=== PATIENT | female | born 1950 | race Caucasian/White ===

== ENCOUNTER → 2018-02-15 13:48 | Outpatient (CLI) | payer MEDICARE, SELFPAY ==
--- NOTE | 2018-02-15 13:48 | DT_ITS ---
This patient was seen during an EMR downtime February 15, 2018 - February 22, 2018. This patient may have a combination of paper and electronic documentation or all paper documentation. All documentation is viewable within the e-chart portion of [employer] for each patient visit.
--- NOTE | 2018-02-24 11:40 | LEAS ---
Arterial Study - Arterial Study Arterial Study: Date of scan 02/15/[address] Alonzo History: Known hypertension with peripheral arterial disease Interpretation: Right lower extremity with fairly normal pulsatile waveform from the thigh down to the calf ankle out through the digits duplex duplex with triphasic flow both vessels at the ankle with an PADMAJA 1.18 in the posterior tibial 0.89 of the dorsalis pedis. Digital brachial index 0.74. Next Left lower extremity with fairly normal pulsatile flow noted from the thigh down to the calf ankle out through the digits duplex again shows triphasic flow both vessels at the ankle with an PADMAJA of 1.16 of the posterior tibial 1.16 of the dorsalis pedis. Digit brachial index 0.98. Impression: 1. Right lower extremity with no evidence of significant arterial occlusive disease at rest with an PADMAJA 1.18 2. Left lower extremity with no evidence of significant arterial occlusive disease at rest with an PADMAJA 1.16
== END ==
PROVIDERS: Family Provider Family Medicine; PCP Family Medicine; Visit Provider Family Medicine
DX: I73.9 Peripheral vascular disease, unspecified (principal)
CPT/HCPCS: 93923

== ENCOUNTER 2018-10-01 18:33 | Inpatient (IN) | payer MEDICARE, SELFPAY ==
[2018-10-01] VITALS (21 sets, daily range): BP systolic 95–135; BP diastolic 56–90; PULSE 113–163; RESP 17–30; TEMP 36.3–36.8; O2SAT 94–99; BMI 22.6; BMI 23.8
--- NOTE | 2018-10-01 18:39 | EKG12_ITS ---
Test Reason : CP Blood Pressure : / mmHG Vent. Rate : 161 BPM Atrial Rate : 144 BPM P-R Int : 000 ms QRS Dur : 074 ms QT Int : 300 ms P-R-T Axes : 000 057 -10 degrees QTc Int : 491 ms Atrial fibrillation with rapid ventricular response ST & T wave abnormality, consider inferior ischemia Abnormal ECG Confirmed by MIGUEL GRIMALDO, APRIL ([id number]), supervising editor trailer VILMA NAVARRETE ([id number]) on 10/04/2018 9:05:25 AM Referred By: NATY Confirmed By:APRIL RIVERA MD
--- NOTE | 2018-10-01 18:40 | RAD_ITS ---
HISTORY: MIDSTERNAL CHEST PAIN, PALPITATIONS AND TACHYCARDIA EXAM: XR Chest 1 View: COMPARISON: CT chest 10/02/14. FINDINGS: # of images incl. paperwork: 1 LINES/DEVICES: None. LUNGS: No evidence of pneumonia, pulmonary edema, or other acute pathology. Mild emphysema, mild linear atelectasis/scarring left lung base. MEDIASTINUM AND CARDIOVASCULAR STRUCTURES: Cardiac silhouette not enlarged. Central airways and mediastinal contour are unremarkable. Atherosclerosis thoracic aorta. BONES AND SOFT TISSUES: Unremarkable. RAD/Chest 1 View (Portable) IMPRESSION: No radiographic evidence of acute cardiopulmonary disease. Mild emphysema. at 1935 Reported and signed by: Michael Stewart MD Electronically Signed: Michael Stewart, at 19:35 EST Tel , Service support ,
[2018-10-01] MEDS: Aspirin 81 MG TAB.CHEW 324 MG PO (18:46)
[2018-10-01] MEDS: dilTIAZem 25 MG/5 ML Vial IV BOLUS (19:01)
--- NOTE | 2018-10-01 19:01 | ED.DCSUM_ITS ---
- ER Visit Summary Date of Service: 10/01/18 Chief Complaint: Chest pain and irregular heart rate History of Present Illness: The patient is a 68 F history of GA and CAD with 2 cardiac stents placed within the last year at [facility]. Also COPD and hypertension. Patient is anticoagulated on both Plavix and aspirin. She states earlier today she had a fast irregular heart rate with dizziness and burning chest discomfort. Physical Examination: Older female vital signs initial heart rates 163 obvious A. fib RVR on the monitor. Her initial blood pressure is 117/81. HEENT exam unremarkable. Neck nontender. Lungs clear to auscultation bilaterally. Heart irregularly irregular rate 160 no murmur. Abdomen soft nontender. Extremities moves all 4. Calves nontender without edema or cords. Neurologically she is awake alert with no focal motor deficits. Test Results: Chest x-ray chronic changes and COPD no acute process read both myself and radiologist. EKG A. fib RVR with rate dependent ischemia with ST depression anterolaterally. CBC normal. Chemistries unremarkable normal creatinine and gap. Troponin normal. Emergency Department Course and Treatment: Patient in new onset A. fib RVR. Will be treated with a Cardizem bolus. P.o. aspirin. She will need admitted. Treatment Plan: Patient's heart rate continued to be greater than 130 after the first dose of Cardizem therefore was started on a Cardizem drip. I spoke to the hospitalist about admission in the PCU. Disposition: Admission Impression: New onset atrial fibrillation with rapid ventricular rate Acute chest pain History of CAD with 2 cardiac stents Anticoagulated on Plavix and aspirin This note was generated with [employer] dictation software. It may contain incorrect words, spelling, and punctuation that were not noted in review of the chart prior to signing ED Disposition - Plan for ED Patient: Chief Complaint: Chest Pain Referrals: Joleen Beal [NON-STAFF] -
[2018-10-01 19:03] LABS: Anion Gap 8 (5-15); BUN 13 mg/dL (7-18); BUN/Creat Ratio 15.9 RATIO (10-20); Calcium,Total 8.9 mg/dL (8.5-10.1); Chloride 110 mmol/L (98-107); Creatinine, Serum 0.82 mg/dL (0.55-1.02); EST Glomerular Filtration Rate 74 mL/min (>60); Est Glom Filt Rate - Afr Amer 89 mL/min (>60); Estimated Creatinine Clearance 62.32 ml/min; Glucose 105 mg/dL (74-106); Potassium 3.8 mmol/L (3.5-5.1); Sodium Level 142 mmol/L (136-145)
[2018-10-01 19:38] LABS: Absolute Lymphocyte Count 3.02 X10^3/ul (0.83-4.51); Absolute Neutrophil Count 4.8 X10^3/uL (2.0-7.7); Basophil# 0.05 X10^3/uL; Basophil% 0.6 % (0-1); Eosinophil# 0.24 X10^3/uL; Eosinophils% 2.8 % (0-5); Hematocrit 45.1 % (37-47); Hemoglobin 14.2 g/dl (12.0-15.0); Lymphocyte # 3.02 X10^3/ul (4.0); Mean Corp Hgb Conc 31.5 g/gl (32-36); Mean Corpuscular Hgb 30.6 pg (27.0-32.0); Mean Corpuscular Volume 97.2 fL (81-99); Mean Platelet Vol. 10.6 fl (6.2-12.0); Monocyte# 0.54 X10^3/uL; Monocyte% 6.3 % (0-10); Neutrophil # 4.77 X10^3/uL (2.7-7.7); Neutrophil % 55.1 % (47-70); Platelet Count 303 K/mm3 (150-450); RBC Distribution Width CV 13.9 % (11.6-14.6); RBC Distribution Width SD 49.2 fl (35.1-43.9); Red Blood Count 4.64 M/mm3 (4.2-5.4); White Blood Count 8.6 K/mm3 (4.4-11.0)
[2018-10-01 19:39] LABS: POSITIVE COUNT NO; POSITIVE DIFFERENTIAL NO; POSITIVE MORPHOLOGY NO
[2018-10-01] MEDS: 0.9% Normal Saline 1,000 ML 999 ML IV (20:16)
--- NOTE | 2018-10-01 21:01 | PCM.HP.STD ---
Problem List (1) Atrial fibrillation with RVR Status: Acute (2) Irritable bowel Status: Suspected (3) Hypertension Status: Chronic (4) Chest pain Status: Acute (5) Tobacco abuse Status: Chronic (6) Myoclonic disorder Status: Chronic History of Present Illness Date of Admission: 10/01/18 Chief Complaint: rapid heart rate, chest discomfort The patient is a 68 year old female patient with a significant past medical history of coronary artery disease(2 stents 7 months ago at [facility]), COPD and myoclonic jerking disorder presents with chest discomfort and rapid heart rate. Last night she noticed she wasn't feeling well and had some tingling discomfort in her left wrist and proceeded to go to bed. She felt unwell when she woke up and noticed a fluttering sensation in her chest. She did not seek medical attention but continued drinking several cups of coffee and smoking cigarettes. Her discomfort worsened so she came to the ER for evaluation. She was in atrial fibrillation with rapid ventricular response. Troponin was 0.026. Other labs were unremarkable. She will be admitted to PCU and cardiology consulted. Past Medical History Past Medical History (Chronic Problems): Chronic Problems Hypertension (Chronic) Esophagitis (Chronic) Tobacco abuse (Chronic) Myoclonic disorder (Chronic) Allergies levofloxacin [From Levaquin] Allergy (Verified 10/02/14 19:09) Rash Home Medications: Ambulatory Orders Medication Instructions Recorded Lisinopril/Hydrochlorothiazide 1 tab PO DAILY 10/02/14 [Lisinopril-Hctz 20-12.5 mg Tab] Metoprolol(XL)Succ [Toprol Xl 50 mg PO DAILY 10/03/14 (Beta Nia)] Aspirin [Aspir 81] 81 mg PO DAILY 10/01/18 Budesonide/Formoterol 160/4.5 2 puff IH BID 10/01/18 [Symbicort 160/4.5 Mcg Inhaler (SP)] Clopidogrel Bisulfate [Plavix] 75 mg PO DAILY 10/01/18 Surgical History: adenoidectomy, hysterectomy, tonsillectomy, - - Cyst removal Psychiatric History: No pertinent psych hx 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, ovarian cysts - Presumed Smoking Status: Current every day smoker - *Family History Maternal History Items: Heart Disease, Stroke Paternal History Items: Cancer - Laryngeal, Heart Disease Review of Systems Constitutional: Denies: Chills, Fever, Weight Change HEENT: Denies: Head Aches, Sinus Congestion, Sinus Drainage Cardiovascular: Reports: Chest Pain, Palpitations Respiratory: Denies: Cough, Shortness of breath at rest, Sputum production Gastrointestinal: Denies: Abdominal Pain, Nausea, Vomiting Genitourinary: Denies: Dysuria Musculoskeletal: Denies: Joint Pain, Joint Tenderness Skin: Denies: Rash, Wounds Neurological: Denies: Numbness, Tingling, Focal weakness Psychiatric: Denies: Anxiety, Depression, Homicidal Ideations, Suicidal Ideations Hematologic/ Lymphatic: Denies: Easy Bruising, Easy Bleeding VTE Information - Inpt Only VTE Present on Admission: No VTE Mechan Device Prophylaxis: None VTE Pharm Prophylaxis ordered?: Yes Patient Problems: Active and Suspected Problems Atrial fibrillation with RVR (Acute) - Physical Exam General: Alert, Oriented x3, Cooperative HEENT: Atraumatic, Normocephalic Neck: Supple, No JVD, Negative Carotid Bruits Lungs: Clear to auscultation, Normal air movement Cardiovascular: Normal S1, Normal S2, No murmurs, Irregular Rate, Tachycardic Abdomen: Bowel Sounds Present, Soft, Non Tender Extremities: No edema Skin: No rashes Musculoskeletal: No Tenderness to Palpation of Joints or Extremities Neurological: Neuro grossly intact Psych/Mental Status: Normal Affect, Appropriate Vital Signs Temp Pulse Resp BP Pulse Ox 97.3 F L 113 H 23 H 95/64 97 10/01/18 18:34 10/01/18 20:13 10/01/18 20:13 10/01/18 20:13 10/01/18 20:13 Oxygen Delivery Method Room Air Weight: 140 lb Body Mass Index (BMI) 22.6 Laboratory Tests Past 24 Hrs 10/01/18 10/01/18 18:37 18:37 WBC 8.6 RBC 4.64 Hgb 14.2 Hct 45.1 MCV 97.2 MCH 30.6 MCHC 31.5 L RDW 13.9 RDW Differential 49.2 H Plt Count 303 MPV 10.6 Immature Gran % (Auto) 0.200 Neut % (Auto) 55.1 Lymph % (Auto) 35.0 Nye % (Auto) 6.3 Eos % (Auto) 2.8 Baso % (Auto) 0.6 Absolute Neuts (auto) 4.8 Absolute Lymphs (auto) 3.02 Total Counted Not Reportable Sodium 142 Potassium 3.8 Chloride 110 H Carbon Dioxide 24.0 Anion Gap 8 BUN 13 Creatinine 0.82 Estim Creat Clear Calc 62.32 Est GFR (MDRD) Af Amer 89 Est GFR (MDRD) Non-Af 74 BUN/Creatinine Ratio 15.9 Glucose 105 Calcium 8.9 Troponin I 0.026 Assessment/Plan All Active Problems Atrial fibrillation with RVR (Acute) Abnormal nuclear stress test (Acute) Chest pain (Acute) Chronic Problems Hypertension (Chronic) Esophagitis (Chronic) Tobacco abuse (Chronic) Myoclonic disorder (Chronic) Plan 1. Atrial Fibrillation /RVR -- admit to PCU, continue Cardizem drip, consult Dr Mendoza 2. Chest Pain/ CAD--cycle cardiac markers, morphine, aspirin, and nitro prn per routine. Adenosine nuclear stress test in AM 3. Nicotine abuse -- ok 14mg patch smoking cessation encourage (G0436) >10min counseling performed on this issue 4. DVT prophylaxis- LMWH Code Visit Inpatient E&M: 15394 Init Hosp L3
[2018-10-01] MEDS: Enoxaparin 60 MG/0.6 ML Syringe SC (22:00)
[2018-10-02] VITALS (25 sets, daily range): BP systolic 99–145; BP diastolic 60–86; PULSE 60–82; RESP 14–25; TEMP 36.6–36.9; O2SAT 93–99
--- NOTE | 2018-10-02 00:15 | EKG12_ITS ---
Test Reason : AM EKG Blood Pressure : / mmHG Vent. Rate : 061 BPM Atrial Rate : 061 BPM P-R Int : 150 ms QRS Dur : 078 ms QT Int : 472 ms P-R-T Axes : 045 034 090 degrees QTc Int : 475 ms Normal sinus rhythm Nonspecific T wave abnormality Prolonged QT Abnormal ECG When compared with ECG of 02-OCT-2018 00:25, MANUAL COMPARISON REQUIRED, DATA IS UNCONFIRMED Confirmed by MIGUEL GRIMALDO, APRIL ([id number]), acquisition editor VILMA NAVARRETE ([id number]) on 10/05/2018 1:15:48 PM Referred By: LISA Confirmed By:APRIL RIVERA MD
[2018-10-02] MEDS: Albuterol 2.5 MG/3 ML VIAL.NEB. INHALATION ×2 (00:33→09:03)
[2018-10-02] MEDS: Morphine 2 MG/ML Syringe IV (00:45)
[2018-10-02] MEDS: 0.9% NaCl Peripheral Flush Adult/Peds IV (00:46)
[2018-10-02 04:42] LABS: Hematocrit 37.7 % (37-47); Hemoglobin 11.9 g/dl (12.0-15.0); Mean Corp Hgb Conc 31.6 g/gl (32-36); Mean Corpuscular Volume 98.2 fL (81-99); Mean Platelet Vol. 10.6 fl (6.2-12.0); Platelet Count 236 K/mm3 (150-450); RBC Distribution Width CV 13.8 % (11.6-14.6); Red Blood Count 3.84 M/mm3 (4.2-5.4); White Blood Count 6.6 K/mm3 (4.4-11.0)
[2018-10-02 04:49] LABS: Prothrombin Time (Protime)PT. 13.1 SECONDS (11.7-14.9)
[2018-10-02 04:54] LABS: Scan Indicated on CBC? Y/N NO
[2018-10-02 05:52] LABS: ALB/GLOB Ratio 1.2 RATIO (0.9-2.4); AST(SGOT) 12 U/L (15-37); Alanine Aminotransfer ALT/SGPT 17 U/L (13-56); Albumin, Serum 3.2 g/dL (3.2-5.0); Alkaline Phosphatase 76 U/L (45-117); Anion Gap 11 (5-15); BUN 12 mg/dL (7-18); BUN/Creat Ratio 17.6 RATIO (10-20); Bilirubin, Direct 0.09 mg/dL (0.00-0.30); Chloride 115 mmol/L (98-107); Cholesterol 158 mg/dL (200); Creatinine, Serum 0.68 mg/dL (0.55-1.02); EST Glomerular Filtration Rate 91 mL/min (>60); Est Glom Filt Rate - Afr Amer 111 mL/min (>60); Estimated Creatinine Clearance 51.11 ml/min; Globulin 2.6 g/dL (2.2-4.2); Glucose 96 mg/dL (74-106); High Density Lipoprotein 36 mg/dL; Potassium 4.1 mmol/L (3.5-5.1); Protein, Total 5.8 g/dL (6.4-8.2); Sodium Level 146 mmol/L (136-145); Thyroid Stim Hormone (TSH) 2.53 uIU/mL (0.358-3.74); Triglycerides 156 mg/dL; Very Low Density Lipoprotein 31 mg/dL (5-40)
--- NOTE | 2018-10-02 05:55 | EKG12_ITS ---
Test Reason : EKG CHANGE Blood Pressure : / mmHG Vent. Rate : 074 BPM Atrial Rate : 074 BPM P-R Int : 140 ms QRS Dur : 084 ms QT Int : 422 ms P-R-T Axes : 050 043 072 degrees QTc Int : 468 ms Normal sinus rhythm Normal ECG When compared with ECG of 03-OCT-2014 06:02, No significant change was found Confirmed by MIGUEL GRIMALDO, APRIL ([id number]), television news video editor VILMA NAVARRETE ([id number]) on 10/05/2018 1:15:55 PM Referred By: LISA Confirmed By:APRIL RIVERA MD
[2018-10-02] MEDS: Clopidogrel Bisulfate 75 MG Tablet PO (05:57)
[2018-10-02] MEDS: Lisinopril 20 MG Tablet PO (05:57)
[2018-10-02] MEDS: Aspirin E.C. 81 MG Tablet PO (05:57)
--- NOTE | 2018-10-02 07:42 | PCM.CONS.C ---
Reason for Consult Date of Consultation: 10/02/18 Reason for Consultation: Irregular heartbeat History of Present Illness: The patient is a 68 year old F with a past medical history significant for hypertension, coronary artery disease status post inferior wall myocardial infarction in April of this year. She had presented to [facility] where she underwent an emergency cardiac catheterization which demonstrated 100% occlusion of the right coronary artery, with mild disease noted in the left anterior descending artery and a left circumflex artery. She underwent angioplasty and stenting with a drug-eluting stent to the right coronary artery. An echocardiogram performed at that time demonstrated preserved ejection fraction estimated at 62% with mild mitral tricuspid and aortic regurgitation. She has apparently done well since then has had some follow-up with them. She yesterday she was not feeling well she felt her heart was racing and so she presented to the emergency room she was noted to be in atrial fibrillation with rapid ventricular response rate with a EKG documenting 161 bpm. She was admitted to the telemetry unit and I was consulted for further evaluation and management. She had been placed on intravenous Cardizem drip. She appears to have converted back to sinus rhythm through the night. Currently she is pain-free. She has denied any chest pain, shortness of breath, paroxysmal nocturnal dyspnea or pedal edema while she was at home. [] Past Medical History Allergies/Adverse Reactions: Allergies levofloxacin [From Levaquin] Allergy (Verified 10/02/14 19:09) Rash Home Medications: Ambulatory Orders Medication Instructions Recorded Lisinopril/Hydrochlorothiazide 1 tab PO DAILY 10/02/14 [Lisinopril-Hctz 20-12.5 mg Tab] Metoprolol(XL)Succ [Toprol Xl 50 mg PO DAILY 10/03/14 (Beta Nia)] Aspirin [Aspir 81] 81 mg PO DAILY 10/01/18 Budesonide/Formoterol 160/4.5 2 puff IH BID 10/01/18 [Symbicort 160/4.5 Mcg Inhaler (SP)] Clopidogrel Bisulfate [Plavix] 75 mg PO DAILY 10/01/18 Past Medical History (Chronic Problems): Chronic Problems Hypertension (Chronic) Esophagitis (Chronic) Tobacco abuse (Chronic) Myoclonic disorder (Chronic) Surgical History: adenoidectomy, hysterectomy, tonsillectomy, - - Cyst removal Psychiatric History: No pertinent psych 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 Denies: Chest Discomfort, Shortness of Breath, Orthopnea, PND, Peripheral Edema, Lightheadedness, Dizziness, Near Syncope, Syncope Respiratory: Denies: Cough, Sputum Production, Hemoptysis Gastrointestinal: Denies: Indigestion, Hematemesis, Hematochezia, Melena Genitourinary: Denies: Dysuria, Hematuria Muscoloskeletal: Denies: Myalgias Skin: Denies: Rash Neurological: Denies: Dizziness Psychiatric: Reports: Anxiety, Depression Endocrine: Denies: Heat Intolerance, Unexplained Weight Loss Hematologic/ Lymphatic: Denies: Anemia Subjectve: Pleasant lady in no apparent distress Objective: Vital Signs Temp Pulse Resp BP Pulse Ox 98.4 F 62 17 134/78 H 97 10/02/18 02:36 10/02/18 06:59 10/02/18 06:59 10/02/18 06:59 10/02/18 06:59 Oxygen Delivery Method Room Air Weight: 147 lb 11.355 oz Body Mass Index (BMI) 23.8 Intake and Output for Last 24 Hours 09/30/18 10/01/18 10/02/18 23:59 23:59 23:59 Intake Total 566.9 / 566.9 Balance 566.9 / 566.9 General: Awake, Alert, Oriented x 3 HEENT: PERRL, EOMI, Sclera Non Icteric Neck: Supple, Good ROM, No Lymph Node Enlargement Lungs: Clear to auscultation Cardiovascular: Regular Rhythm, Normal S1, Normal S2, No Murmurs, No Rubs, No Gallops Vascular: No Carotid Bruits, Normal Femoral Pulses, Normal Radial Pulses, Normal Dorsalis Pedal Pulse, Normal Posterior Tibial Pulses Abdomen: Bowel Sounds Present, Soft, Non Tender, No HSM, No Organomegaly Extremities: No Cyanosis, No Clubbing, No edema Musculoskeletal: No Muscle Wasting Skin: No Rashes Lymphatic: No Lymph Node Enlargement Neurological: No Focal Motor or Sensory Deficit Psych/Mental Status: Flat Affect 10/01/18 18:37: WBC 8.6, RBC 4.64, Hgb 14.2, Hct 45.1, MCV 97.2, MCH 30.6, MCHC 31.5 L, RDW 13.9, RDW Differential 49.2 H, Plt Count 303, MPV 10.6, Immature Gran % (Auto) 0.200, Neut % (Auto) 55.1, Lymph % (Auto) 35.0, Rush % (Auto) 6.3, Eos % (Auto) 2.8, Baso % (Auto) 0.6, Absolute Neuts (auto) 4.8, Total Counted Not Reportable 10/01/18 18:37: Sodium 142, Potassium 3.8, Chloride 110 H, Carbon Dioxide 24.0, Anion Gap 8, BUN 13, Creatinine 0.82, Est GFR (MDRD) Af Amer 89, Est GFR (MDRD) Non-Af 74, BUN/Creatinine Ratio 15.9, Glucose 105, Calcium 8.9, Troponin I 0.026 10/01/18 21:54: Troponin I 0.060 H 10/02/18 00:40: Troponin I 0.056 H 10/02/18 04:23: WBC 6.6, RBC 3.84 L, Hgb 11.9 L, Hct 37.7, MCV 98.2, MCH 31.0, MCHC 31.6 L, RDW 13.8, RDW Differential 48.0 H, Plt Count 236, MPV 10.6 10/02/18 04:23: Sodium 146 H, Potassium 4.1, Chloride 115 H, Carbon Dioxide 20.0 L, Anion Gap 11, BUN 12, Creatinine 0.68, Est GFR (MDRD) Af Amer 111, Est GFR (MDRD) Non-Af 91, BUN/Creatinine Ratio 17.6, Glucose 96, Calcium 8.0 L, Total Bilirubin 0.20, Direct Bilirubin 0.09, Triglycerides 156, Cholesterol 158, LDL Cholesterol 91, VLDL Cholesterol 31, HDL Cholesterol 36 L 10/02/18 04:23: PT 13.1, INR 1.0, APTT 36.0 Rhythm: EKG: Initial EKG demonstrates atrial fibrillation with a rapid ventricular response rate of 161 bpm, follow-up EKG demonstrates normal sinus rhythm with a rate of 61 bpm. Assessment/Plan 1. New onset atrial fibrillation The patient presented with new onset atrial fibrillation and spontaneously converted to sinus rhythm. My recommendation at this time would be to assess for any ischemia. If the above is negative then I would recommend that we continue to manage her medically. At this time with one episode I do not think that we need to put her on anticoagulation. Her previous echocardiogram demonstrated preserved ejection fraction. I would recommend that we continue to follow her here closely medically. 2. Coronary artery disease She is status post coronary artery angioplasty and stenting of the right coronary artery. Depending on the results of the stress myocardial perfusion scan further recommendations will be made. At this time however I think her mild troponin elevation is likely secondary to demand ischemia. 3. Risk factor modification She will need aggressive blood pressure control as well as continued smoking cessation. . I would encourage her to follow-up here locally especially if she is going to be using as for emergency medical services. Thank you for allowing me to participate in the care of your patient. Please don't hesitate to call if any issues arise
--- NOTE | 2018-10-02 07:48 | CON.PCM_ITS ---
Reason for Consult Date of Consultation: 10/02/18 Reason for Consultation: Irregular heartbeat History of Present Illness: The patient is a 68 year old F with a past medical history significant for hypertension, coronary artery disease status post inferior wall myocardial infarction in April of this year. She had presented to [facility] where she underwent an emergency cardiac catheterization which demonstrated 100% occlusion of the right coronary artery, with mild disease noted in the left anterior descending artery and a left circumflex artery. She underwent angioplasty and stenting with a drug-eluting stent to the right coronary artery. An echocardiogram performed at that time demonstrated preserved ejection fraction estimated at 62% with mild mitral tricuspid and aortic regurgitation. She has apparently done well since then has had some follow-up with them. She yesterday she was not feeling well she felt her heart was racing and so she presented to the emergency room she was noted to be in atrial fibrillation with rapid ventricular response rate with a EKG documenting 161 bpm. She was admitted to the telemetry unit and I was consulted for further evaluation and management. She had been placed on intravenous Cardizem drip. She appears to have converted back to sinus rhythm through the night. Currently she is pain- free. She has denied any chest pain, shortness of breath, paroxysmal nocturnal dyspnea or pedal edema while she was at home. [] Past Medical History Allergies/Adverse Reactions: Allergies levofloxacin [From Levaquin] Allergy (Verified 10/02/14 19:09) Rash Home Medications: Ambulatory Orders Medication Instructions Recorded Lisinopril/Hydrochlorothiazide 1 tab PO DAILY 10/02/14 [Lisinopril-Hctz 20-12.5 mg Tab] Metoprolol(XL)Succ [Toprol Xl 50 mg PO DAILY 10/03/14 (Beta Nia)] Aspirin [Aspir 81] 81 mg PO DAILY 10/01/18 Budesonide/Formoterol 160/4.5 2 puff IH BID 10/01/18 [Symbicort 160/4.5 Mcg Inhaler (SP)] Clopidogrel Bisulfate [Plavix] 75 mg PO DAILY 10/01/18 Past Medical History (Chronic Problems): Chronic Problems Hypertension (Chronic) Esophagitis (Chronic) Tobacco abuse (Chronic) Myoclonic disorder (Chronic) Surgical History: adenoidectomy, hysterectomy, tonsillectomy, - - Cyst removal Psychiatric History: No pertinent psych hx SEISMIC INTERPRETER History: No pertinent SEISMIC INTERPRETER history, ovarian cysts - Presumed - *Family History Maternal History Items: Heart Disease, Stroke Paternal History Items: Cancer - Laryngeal, Heart Disease Smoking Status: Current every day smoker Tobacco Use: Cigarettes Review of Systems - Review of Systems General: Denies: Fever, Night Sweats, Fatigue HEENT: Denies: Vision Change Cardiovascular: Reports: Palpitations. Denies: Chest Discomfort, Shortness of Breath, Orthopnea, PND, Peripheral Edema, Lightheadedness, Dizziness, Near Syncope, Syncope Respiratory: Denies: Cough, Sputum Production, Hemoptysis Gastrointestinal: Denies: Indigestion, Hematemesis, Hematochezia, Melena Genitourinary: Denies: Dysuria, Hematuria Muscoloskeletal: Denies: Myalgias Skin: Denies: Rash Neurological: Denies: Dizziness Psychiatric: Reports: Anxiety, Depression Endocrine: Denies: Heat Intolerance, Unexplained Weight Loss Hematologic/ Lymphatic: Denies: Anemia Subjectve: Pleasant lady in no apparent distress Objective: Vital Signs Temp Pulse Resp BP Pulse Ox 98.4 F 62 17 134/78 H 97 10/02/18 02:36 10/02/18 06:59 10/02/18 06:59 10/02/18 06:59 10/02/18 06:59 Oxygen Delivery Method Room Air Weight: 147 lb 11.355 oz Body Mass Index (BMI) 23.8 Intake and Output for Last 24 Hours 09/30/18 10/01/18 10/02/18 23:59 23:59 23:59 Intake Total 566.9 / 566.9 Balance 566.9 / 566.9 General: Awake, Alert, Oriented x 3 HEENT: PERRL, EOMI, Sclera Non Icteric Neck: Supple, Good ROM, No Lymph Node Enlargement Lungs: Clear to auscultation Cardiovascular: Regular Rhythm, Normal S1, Normal S2, No Murmurs, No Rubs, No Gallops Vascular: No Carotid Bruits, Normal Femoral Pulses, Normal Radial Pulses, Normal Dorsalis Pedal Pulse, Normal Posterior Tibial Pulses Abdomen: Bowel Sounds Present, Soft, Non Tender, No HSM, No Organomegaly Extremities: No Cyanosis, No Clubbing, No edema Musculoskeletal: No Muscle Wasting Skin: No Rashes Lymphatic: No Lymph Node Enlargement Neurological: No Focal Motor or Sensory Deficit Psych/Mental Status: Flat Affect 10/01/18 18:37: WBC 8.6, RBC 4.64, Hgb 14.2, Hct 45.1, MCV 97.2, MCH 30.6, MCHC 31.5 L, RDW 13.9, RDW Differential 49.2 H, Plt Count 303, MPV 10.6, Immature Gran % (Auto) 0.200, Neut % (Auto) 55.1, Lymph % (Auto) 35.0, [place] % (Auto) 6.3, Eos % (Auto) 2.8, Baso % (Auto) 0.6, Absolute Neuts (auto) 4.8, Total Counted Not Reportable 10/01/18 18:37: Sodium 142, Potassium 3.8, Chloride 110 H, Carbon Dioxide 24.0, Anion Gap 8, BUN 13, Creatinine 0.82, Est GFR (MDRD) Af Amer 89, Est GFR (MDRD) Non-Af 74, BUN/Creatinine Ratio 15.9, Glucose 105, Calcium 8.9, Troponin I 0.026 10/01/18 21:54: Troponin I 0.060 H 10/02/18 00:40: Troponin I 0.056 H 10/02/18 04:23: WBC 6.6, RBC 3.84 L, Hgb 11.9 L, Hct 37.7, MCV 98.2, MCH 31.0, MCHC 31.6 L, RDW 13.8, RDW Differential 48.0 H, Plt Count 236, MPV 10.6 10/02/18 04:23: Sodium 146 H, Potassium 4.1, Chloride 115 H, Carbon Dioxide 20.0 L, Anion Gap 11, BUN 12, Creatinine 0.68, Est GFR (MDRD) Af Amer 111, Est GFR (MDRD) Non-Af 91, BUN/Creatinine Ratio 17.6, Glucose 96, Calcium 8.0 L, Total Bilirubin 0.20, Direct Bilirubin 0.09, Triglycerides 156, Cholesterol 158, LDL Cholesterol 91, VLDL Cholesterol 31, HDL Cholesterol 36 L 10/02/18 04:23: PT 13.1, INR 1.0, APTT 36.0 Rhythm: EKG: Initial EKG demonstrates atrial fibrillation with a rapid ventricular response rate of 161 bpm, follow-up EKG demonstrates normal sinus rhythm with a rate of 61 bpm. Assessment/Plan 1. New onset atrial fibrillation * The patient presented with new onset atrial fibrillation and spontaneously converted to sinus rhythm. My recommendation at this time would be to assess for any ischemia. If the above is negative then I would recommend that we continue to manage her medically. At this time with one episode I do not think that we need to put her on anticoagulation. * Her previous echocardiogram demonstrated preserved ejection fraction. * I would recommend that we continue to follow her here closely medically. * 2. Coronary artery disease * She is status post coronary artery angioplasty and stenting of the right coronary artery. Depending on the results of the stress myocardial perfusion scan further recommendations will be made. At this time however I think her mild troponin elevation is likely secondary to demand ischemia. * 3. Risk factor modification * She will need aggressive blood pressure control as well as continued smoking cessation. * * . I would encourage her to follow-up here locally especially if she is going to be using as for emergency medical services. * * Thank you for allowing me to participate in the care of your patient. Please don't hesitate to call if any issues arise
[2018-10-02] MEDS: Budesonide Respules 0.5 MG/2 ML AMPUL.NEB. INHALATION (09:03)
--- NOTE | 2018-10-02 09:04 | NURSING ---
pt back from stress test at 0900
[2018-10-02] MEDS: Enoxaparin 60 MG/0.6 ML Syringe SC (09:40)
[2018-10-02] MEDS: hydroCHLOROthiazide 12.5mg 12.5 MG PO (09:41)
[2018-10-02] MEDS: Metoprolol(XL)Succ 50 MG Tablet PO (09:41)
--- NOTE | 2018-10-02 09:41 | STRESSREP ---
Stress Test Report Pharmacologic myocardial perfusion stress test. 68-year-old lady with a history of coronary artery disease and atrial fibrillation. Medications: Lisinopril metoprolol Plavix and aspirin. Stress protocol: Resting EKG demonstrates normal sinus rhythm with a rate of 61 bpm normal intervals are noted resting blood pressure 152/80 mmHg. 0.4 mg of regadenoson was infused per usual protocol followed by rapid intravenous saline flush injection continuous EKG monitoring was performed the maximum heart rate attained was 91 bpm which was 59% of maximum predicted heart rate the maximum workload was 1 metabolic equivalent. The patient maintained sinus rhythm throughout the recording. At rest and during peak infusion there were no ST or T wave changes noted suggest ischemia. Resting blood pressure 152/80 with a final blood pressure 150/76. Myocardial perfusion protocol. 11.6 mCi of technetium 99m sestamibi was injected at rest. 0.4 mg of regadenoson was infused per usual protocol peak infusion 35.0 mCi of technetium 99m sestamibi was injected stress images were obtained stress and rest images were reconstructed and compared in the short axis vertical long horizontal long axis. Gated images were also obtained Perfusion SPECT analysis. Review of the images demonstrate normal uptake of tracer noted in all areas of the myocardium. The resting images especially involving the inferior wall demonstrated normal perfusion in all areas of the myocardium. No areas of reversibility are noted suggest ischemia. Gated SPECT analysis: The gated ejection fraction is noted to be 73%. Conclusion: Normal pharmacologic myocardial perfusion stress test. Preserved ejection fraction.
--- NOTE | 2018-10-02 10:25 | DCINST_ITS ---
- Discharge Diagnoses Current Active Problems: Current Active and Chronic Problems Atrial fibrillation with RVR (Acute) You will use the following diet at home:: Cardiac Discharge Activity: Return to Normal Activity Call your doctor if you observe: Shortness of breath, Dizziness, Fainting spells, Chest pain Allergies/Adverse Reactions: Allergies levofloxacin [From Levaquin] Allergy (Verified 10/02/14 19:09) Rash Medications to take at Discharge Lisinopril/Hydrochlorothiazide [Lisinopril-Hctz 20-12.5 mg Tab] 1 tab PO DAILY 10/02/14 Metoprolol(XL)Succ [Toprol Xl (Beta Nia)] 50 mg PO DAILY 10/03/14 Aspirin [Aspir 81] 81 mg PO DAILY 10/01/18 Budesonide/Formoterol 160/4.5 [Symbicort 160/4.5 Mcg Inhaler (SP)] 2 puff IH BID 10/01/18 Clopidogrel Bisulfate [Plavix] 75 mg PO DAILY 10/01/18 Primary Care Physician: Joleen Beal [NON-STAFF] - Please follow up with your Primary Care Physician in: 1 Week Test Results: Test results from this visit will be discussed in further detail at your follow- up appointment, if applicable. Please Follow Up With: Yousif Mendoza MD - May see VENDING MACHINE HOST/HOSTESS/PA When: 1-2 Weeks Proposed Discharge Date: 10/02/18
--- NOTE | 2018-10-02 10:26 | DS.PCM_ITS ---
<Leanna John - Last Filed: 10/02/18 13:48> Discharge Date and Diagnosis Date of Admission: 10/01/18 Date of Discharge: 10/02/18 - Primary Discharge Diagnosis Active and Suspected Problems 1. New onset atrial fibrillation 2. CAD with history of stents 3. Nicotine dependence 4. Hypertension 5. Myoclonic disorder 6. Chronic COPD - Secondary Discharge Diagnosis Chronic Problems Hypertension (Chronic) Esophagitis (Chronic) Tobacco abuse (Chronic) Myoclonic disorder (Chronic) Hospital Course and Treatment Imaging Results: Diagnostic Data Chest X-Ray 10/01/18 18:40 IMPRESSION: No radiographic evidence of acute cardiopulmonary disease. Mild emphysema. at 1936 Reported and signed by: Michael Stewart MD Electronically Signed: Michael Stewart, at 19:35 EST Tel , Service support , Dr. Mendoza- Cardiology Operations: None Procedures: Stress test Summary of Care Provided: The patient is a 68 year old F admitted 10/01/2018 due to rapid heart rate, chest discomfort. 1. New onset atrial fibrillation-spontaneously converted to sinus rhythm. Patient underwent nuclear stress test which was negative for ischemia. Given brief episode, patient was not placed on anticoagulation. Chest x-ray without acute process. Patient will follow up with Dr. Mendoza in 1-2 weeks. Follow-up with primary care physician 1 week. 2. CAD with history of stents-patient had 2 stents placed at [facility] 7 months ago. Continue aspirin, Plavix, beta-nia. Not on statin? 3. Nicotine dependence-encouraged smoking cessation. 4. Hypertension-stable, continue home lisinopril/HCTZ regimen, metoprolol. 5. Myoclonic disorder 6. Chronic COPD-no acute exacerbation. Patient seen and examined prior to discharge. Physical assessment as noted below. Patient is stable for discharge with follow up recommendations as noted above. This patient was seen by MATT Johnson under the supervision of Dr. Franks. - Physical Exam General: Alert, Oriented x3, Cooperative, No apparent distress HEENT: Atraumatic, PERRLA, EOMI, Normocephalic Neck: Supple, No JVD, Negative Carotid Bruits Lungs: Clear to auscultation, Diminished Cardiovascular: Regular rate, Regular Rhythm, Normal S1, Normal S2, No murmurs Abdomen: Bowel Sounds Present, Soft, Non Tender, Non-Distended Extremities: No clubbing, No cyanosis, No edema, Capillary Refill Less than 3 Seconds Skin: No rashes, No breakdown Musculoskeletal: No Tenderness to Palpation of Joints or Extremities Neurological: Cranial nerves II-XII grossly intact, Neuro grossly intact, - - Spastic movements. Psych/Mental Status: Normal Affect, Appropriate Vital Signs Temp Pulse Resp BP Pulse Ox 98 F 64 16 145/60 H 95 10/02/18 09:00 10/02/18 09:41 10/02/18 09:04 10/02/18 09:00 10/02/18 09:04 Oxygen Delivery Method Room Air Weight: 147 lb 11.355 oz Body Mass Index (BMI) 23.8 Intake and Output for Last 24 Hours 09/30/18 10/01/18 10/02/18 23:59 23:59 23:59 Intake Total 566.9 / 566.9 Balance 566.9 / 566.9 Laboratory Tests Past 24 Hrs 10/01/18 10/01/18 10/01/18 18:37 18:37 21:54 WBC 8.6 RBC 4.64 Hgb 14.2 Hct 45.1 MCV 97.2 MCH 30.6 MCHC 31.5 L RDW 13.9 RDW Differential 49.2 H Plt Count 303 MPV 10.6 Immature Gran % (Auto) 0.200 Neut % (Auto) 55.1 Lymph % (Auto) 35.0 [place] % (Auto) 6.3 Eos % (Auto) 2.8 Baso % (Auto) 0.6 Absolute Neuts (auto) 4.8 Absolute Lymphs (auto) 3.02 Total Counted Not Reportable PT INR APTT Sodium 142 Potassium 3.8 Chloride 110 H Carbon Dioxide 24.0 Anion Gap 8 BUN 13 Creatinine 0.82 Estim Creat Clear Calc 62.32 Est GFR (MDRD) Af Amer 89 Est GFR (MDRD) Non-Af 74 BUN/Creatinine Ratio 15.9 Glucose 105 Calcium 8.9 Total Bilirubin Direct Bilirubin AST ALT Alkaline Phosphatase Troponin I 0.026 0.060 H Total Protein Albumin Globulin Albumin/Globulin Ratio Triglycerides Cholesterol LDL Cholesterol VLDL Cholesterol HDL Cholesterol TSH 10/02/18 10/02/18 10/02/18 00:40 04:23 04:23 WBC 6.6 RBC 3.84 L Hgb 11.9 L Hct 37.7 MCV 98.2 MCH 31.0 MCHC 31.6 L RDW 13.8 RDW Differential 48.0 H Plt Count 236 MPV 10.6 Immature Gran % (Auto) Neut % (Auto) Lymph % (Auto) [place] % (Auto) Eos % (Auto) Baso % (Auto) Absolute Neuts (auto) Absolute Lymphs (auto) Total Counted PT INR APTT Sodium 146 H Potassium 4.1 Chloride 115 H Carbon Dioxide 20.0 L Anion Gap 11 BUN 12 Creatinine 0.68 Estim Creat Clear Calc 51.11 Est GFR (MDRD) Af Amer 111 Est GFR (MDRD) Non-Af 91 BUN/Creatinine Ratio 17.6 Glucose 96 Calcium 8.0 L Total Bilirubin 0.20 Direct Bilirubin 0.09 AST 12 L ALT 17 Alkaline Phosphatase 76 Troponin I 0.056 H Total Protein 5.8 L Albumin 3.2 Globulin 2.6 Albumin/Globulin Ratio 1.2 Triglycerides 156 Cholesterol 158 LDL Cholesterol 91 VLDL Cholesterol 31 HDL Cholesterol 36 L TSH 2.53 10/02/18 04:23 WBC RBC Hgb Hct MCV MCH MCHC RDW RDW Differential Plt Count MPV Immature Gran % (Auto) Neut % (Auto) Lymph % (Auto) [place] % (Auto) Eos % (Auto) Baso % (Auto) Absolute Neuts (auto) Absolute Lymphs (auto) Total Counted PT 13.1 INR 1.0 APTT 36.0 Sodium Potassium Chloride Carbon Dioxide Anion Gap BUN Creatinine Estim Creat Clear Calc Est GFR (MDRD) Af Amer Est GFR (MDRD) Non-Af BUN/Creatinine Ratio Glucose Calcium Total Bilirubin Direct Bilirubin AST ALT Alkaline Phosphatase Troponin I Total Protein Albumin Globulin Albumin/Globulin Ratio Triglycerides Cholesterol LDL Cholesterol VLDL Cholesterol HDL Cholesterol TSH Discharge Diet: Low fat/ Low Cholesterol Discharge Activity: Return to Normal Activity Call your doctor if you observe: Shortness of breath, Dizziness, Fainting spells, Chest pain Home Medications: Medications to take at Discharge Lisinopril/Hydrochlorothiazide [Lisinopril-Hctz 20-12.5 mg Tab] 1 tab PO DAILY 10/02/14 Metoprolol(XL)Succ [Toprol Xl (Beta Nia)] 50 mg PO DAILY 10/03/14 Aspirin [Aspir 81] 81 mg PO DAILY 10/01/18 Budesonide/Formoterol 160/4.5 [Symbicort 160/4.5 Mcg Inhaler (SP)] 2 puff IH BID 10/01/18 Clopidogrel Bisulfate [Plavix] 75 mg PO DAILY 10/01/18 Primary Care Physician: Joleen Beal [NON-STAFF] - Please follow up with your Primary Care Physician in: 1 Week Please Follow Up With: Yousif Mendoza MD - May see BATTING MACHINE OPERATOR INSULATION/PA When: 1-2 Weeks Disposition: Home Minutes spent on discharge:: 35 Patient Condition:: Stable Medical Necessity - Tobacco Use Smoking Status: Current every day smoker Tobacco Use: Cigarettes Meaningful Use Info Meaningful Use Diagnoses (Choose all that apply): None applicable <GoldenBerry - Last Filed: 10/02/18 17:46> Discharge Date and Diagnosis - Secondary Discharge Diagnosis Chronic Problems Hypertension (Chronic) Esophagitis (Chronic) Tobacco abuse (Chronic) Myoclonic disorder (Chronic) Hospital Course and Treatment Summary of Care Provided: This patient was seen in conjunction with Leanna MAJOR. I have independently in terviewed and examined the patient and reviewed pertinent history, examination findings, laboratory and plan of management. I have reviewed the note and agree with the documented findings with the few additional points. In brief, patient is admitted for new onset A. fib which was spontaneously converted to sinus rhythm. Patient had nuclear stress test which was negative for stress-induced ischemia. Patient has comorbidities coronary artery disease with history of stents, hypertension is well controlled. Patient is discharged home. Follow-up instructions completed. I have discussed my assessment with Leanna MAJOR and orders have been reviewed. [] Subjective: Seen and examined. - Physical Exam General: Alert, Oriented x3, Cooperative HEENT: Atraumatic, PERRLA, EOMI, Normocephalic Neck: Supple, No JVD, Negative Carotid Bruits Lungs: Clear to auscultation, Diminished Cardiovascular: Regular rate, Regular Rhythm, Normal S1, Normal S2, No murmurs Abdomen: Bowel Sounds Present, Soft, Non Tender, Non-Distended Extremities: No edema, Capillary Refill Less than 3 Seconds Skin: No rashes, No breakdown Musculoskeletal: No Tenderness to Palpation of Joints or Extremities, Arthritic Changes Neurological: Cranial nerves II-XII grossly intact Psych/Mental Status: Normal Affect, Appropriate Vital Signs Temp Pulse Resp BP Pulse Ox 98 F 64 16 145/60 H 95 10/02/18 09:00 10/02/18 09:41 10/02/18 09:04 10/02/18 09:00 10/02/18 09:04 Oxygen Delivery Method Room Air Weight: 147 lb 11.355 oz Body Mass Index (BMI) 23.8 Intake and Output for Last 24 Hours 09/30/18 10/01/18 10/02/18 23:59 23:59 23:59 Intake Total 566.9 / 566.9 Balance 566.9 / 566.9 Laboratory Tests Past 24 Hrs 10/01/18 10/01/18 10/01/18 18:37 18:37 21:54 WBC 8.6 RBC 4.64 Hgb 14.2 Hct 45.1 MCV 97.2 MCH 30.6 MCHC 31.5 L RDW 13.9 RDW Differential 49.2 H Plt Count 303 MPV 10.6 Immature Gran % (Auto) 0.200 Neut % (Auto) 55.1 Lymph % (Auto) 35.0 [place] % (Auto) 6.3 Eos % (Auto) 2.8 Baso % (Auto) 0.6 Absolute Neuts (auto) 4.8 Absolute Lymphs (auto) 3.02 Total Counted Not Reportable PT INR APTT Sodium 142 Potassium 3.8 Chloride 110 H Carbon Dioxide 24.0 Anion Gap 8 BUN 13 Creatinine 0.82 Estim Creat Clear Calc 62.32 Est GFR (MDRD) Af Amer 89 Est GFR (MDRD) Non-Af 74 BUN/Creatinine Ratio 15.9 Glucose 105 Calcium 8.9 Total Bilirubin Direct Bilirubin AST ALT Alkaline Phosphatase Troponin I 0.026 0.060 H Total Protein Albumin Globulin Albumin/Globulin Ratio Triglycerides Cholesterol LDL Cholesterol VLDL Cholesterol HDL Cholesterol TSH 10/02/18 10/02/18 10/02/18 00:40 04:23 04:23 WBC 6.6 RBC 3.84 L Hgb 11.9 L Hct 37.7 MCV 98.2 MCH 31.0 MCHC 31.6 L RDW 13.8 RDW Differential 48.0 H Plt Count 236 MPV 10.6 Immature Gran % (Auto) Neut % (Auto) Lymph % (Auto) [place] % (Auto) Eos % (Auto) Baso % (Auto) Absolute Neuts (auto) Absolute Lymphs (auto) Total Counted PT INR APTT Sodium 146 H Potassium 4.1 Chloride 115 H Carbon Dioxide 20.0 L Anion Gap 11 BUN 12 Creatinine 0.68 Estim Creat Clear Calc 51.11 Est GFR (MDRD) Af Amer 111 Est GFR (MDRD) Non-Af 91 BUN/Creatinine Ratio 17.6 Glucose 96 Calcium 8.0 L Total Bilirubin 0.20 Direct Bilirubin 0.09 AST 12 L ALT 17 Alkaline Phosphatase 76 Troponin I 0.056 H Total Protein 5.8 L Albumin 3.2 Globulin 2.6 Albumin/Globulin Ratio 1.2 Triglycerides 156 Cholesterol 158 LDL Cholesterol 91 VLDL Cholesterol 31 HDL Cholesterol 36 L TSH 2.53 10/02/18 04:23 WBC RBC Hgb Hct MCV MCH MCHC RDW RDW Differential Plt Count MPV Immature Gran % (Auto) Neut % (Auto) Lymph % (Auto) [place] % (Auto) Eos % (Auto) Baso % (Auto) Absolute Neuts (auto) Absolute Lymphs (auto) Total Counted PT 13.1 INR 1.0 APTT 36.0 Sodium Potassium Chloride Carbon Dioxide Anion Gap BUN Creatinine Estim Creat Clear Calc Est GFR (MDRD) Af Amer Est GFR (MDRD) Non-Af BUN/Creatinine Ratio Glucose Calcium Total Bilirubin Direct Bilirubin AST ALT Alkaline Phosphatase Troponin I Total Protein Albumin Globulin Albumin/Globulin Ratio Triglycerides Cholesterol LDL Cholesterol VLDL Cholesterol HDL Cholesterol TSH Code Visit OBSV E&M: [id number] Observation care discharge
--- OUTSIDE RECORDS SUMMARY | 2018-12-06 08:22 | XMS RPT_ITS ---
:1950 Author Organization OHIP Care Team Providers Name Role Phone Joleen Beal Attending Unavailable Joleen Beal Referring Unavailable Joleen Beal Primary Care Unavailable Shahrzad Zepeda Attending Unavailable Ghoubrial, Kenneth Referring Unavailable Ghoubrial, Kenneth Primary Care Unavailable PROVIDER, UNKNOWN Attending Unavailable Ghoubrial, Kenneth Referring Unavailable Ghoubrial, Kenneth Primary Care Unavailable Tariq Levy Attending Unavailable Ghoubrial, Kenneth Referring Unavailable Ghoubrial, Kenneth Primary Care Unavailable Petra Byrd Attending Unavailable Ghoubrial, Kenneth Referring Unavailable Ghoubrial, Kenneth Primary Care Unavailable Lisa Angelo Attending Unavailable Ghoubrial, Kenneth Referring Unavailable Ghoubrial, Kenneth Primary Care Unavailable Primay Care Physicia, No Primary Care Unavailable Juan C Evans Admitting Unavailable Yousif Mendoza Consulting Unavailable Berry Franks Attending Unavailable Juan C Evans Admitting Unavailable Juan C Evans Attending Unavailable Primay Care Physicia, No Primary Care Unavailable Juan C Evans Consulting Unavailable Juan C Evans Admitting Unavailable MATT Johnson Attending Unavailable Primay Care Physicia, No Primary Care Unavailable Yousif Mendoza Consulting Unavailable Berry Franks Consulting Unavailable Joleen Beal Attending Unavailable Joleen Beal Referring Unavailable Joleen Beal Primary Care Unavailable PROBLEMS PROBLEMS DATE TYPE CONDITION / CODE ATTENDING STATUS SOURCE 05/22/2018 Admitting Chronic obstructive Lisa Angelo [facility] Diagnosis pulmonary disease, System unspecified / Repository J44.9(ICD-10) 05/22/2018 Admitting Athscl heart disease Lisa Angelo [employer] Diagnosis of [place] coronary System artery w/o ang pctrs Repository / I25.10(ICD-10) 05/22/2018 Admitting Gastro-esophageal Lisa Angelo [employer] Diagnosis reflux disease System without esophagitis Repository / K21.9(ICD-10) 05/22/2018 Admitting Essential (primary) Lisa Angelo [employer] Diagnosis hypertension / System I10(ICD-10) Repository 05/22/2018 Admitting Nicotine dependence, Lisa Angelo [employer] Diagnosis cigarettes, System uncomplicated / Repository F17.210(ICD-10) 05/22/2018 Admitting USP (current) Lisa Angelo [employer] Diagnosis use of aspirin / System Z79.82(ICD-10) Repository 05/22/2018 Admitting 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 / Repository Z90.710(ICD-10) 05/22/2018 Admitting Nontoxic single Lisa Angelo [employer] Diagnosis thyroid nodule / System E04.1(ICD-10) Repository 05/22/2018 Admitting Presence of coronary Lisa Angelo [employer] Diagnosis angioplasty implant System and graft / Repository Z95.5(ICD-10) 05/22/2018 Admitting Chest pain, Lisa Angelo [employer] Diagnosis unspecified / System R07.9(ICD-10) Repository 05/22/2018 Admitting Old myocardial Lisa Angelo [employer] Diagnosis infarction / System I25.2(ICD-10) Repository 05/22/2018 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 / Repository Z79.51(ICD-10) 05/22/2018 Admitting USP (current) Lisa Angelo [facility] Diagnosis use of System antithrombotics/anti Repository platelets / Z79.02(ICD-10) 05/22/2018 Admitting Nausea / Lisa Angelo [facility] Diagnosis R11.0(ICD-10) System Repository 05/20/2018 Admitting STEMI involving Petra Byrd [facility] Diagnosis right coronary Nikki System artery / Repository I21.11(ICD-10) 05/08/2018 Admitting Myoclonus / [place], Active [facility] Diagnosis G25.3(ICD-10) [facility] System Repository 05/08/[address] elevation (STEMI) [place], Active [facility] Diagnosis myocardial Peter System infarction of unsp Repository site / I21.3(ICD-10) 05/08/2018 Admitting STEMI involving oth [place]ender, Active [facility] Diagnosis coronary artery of Peter System inferior wall / Repository I21.19(ICD-10) 05/08/2018 Admitting Suicidal ideations / [place], Active [facility] Diagnosis R45.851(ICD-10) [facility] System Repository 05/08/2018 Admitting Chronic total [place]ender, Active [facility] occlusion of Peter System coronary artery / Repository I25.82(ICD-10) 05/08/2018 Admitting Major depressive [place], Active [facility] disorder, single [facility] System episode, unspecified Repository / F32.9(ICD-10) 05/08/2018 Admitting Hyperlipidemia, [place], Active [facility] unspecified / Peter System E78.5(ICD-10) Repository 04/09/2018 Admitting Open bite, left Shahrzad Zepeda [facility] knee, initial System encounter / Repository S81.052A(ICD-10) 04/09/2018 Admitting Postprocedural Shahrzad Zepeda [facility] hypothyroidism / System E89.0(ICD-10) Repository 04/09/2018 Admitting Allergy status to Shahrzad Zepeda [facility] oth drug/meds/biol System subst status / Repository Z88.8(ICD-10) 04/09/2018 Admitting Bitten by dogDuane David Active [facility] Diagnosis initial encounter / System W54.0XXA(ICD-10) Repository 03/10/2018 Unknown I73.9 - Peripheral Emigdio, Active [place] vascular disease, [facility] unspecified / Hospital I73.9(ICD-10) Repository PROCEDURES PROCEDURES No Procedure Records FoundRESULTS RESULTS 12 LEAD ELECTROCARDIOGRAM Observed: 10/05/2018 Status: F Source: [place] 1:16 PM [facility] Cardiovascular Services [address] [place] [address] 12 Lead EKG 10/02/18 0450 MR#: [id number] Acct: [id number] Name: ANTON MOISE Rep #: [id number] : 1950 68 From: Yousif Mendoza MD Attending Dr: Berry Franks MD Status: DIS IN Ordering Dr: Juan C Evans MD Date: 10/02/18 Location: [facility] Sex: F C Admitted: 10/01/18 Test Reason : AM EKG Blood Pressure : / mmHG Vent. Rate : 061 BPM Atrial Rate : 061 BPM P-R Int : 150 ms QRS Dur : 078 ms QT Int : 472 ms P-R-T Axes : 045 034 090 degrees QTc Int : 475 ms Normal sinus rhythm Nonspecific T wave abnormality Prolonged QT Abnormal ECG When compared with ECG of 02-OCT-2018 00:25, MANUAL COMPARISON REQUIRED, DATA IS UNCONFIRMED Confirmed by MIGUEL GRIMALDO, YOUSIF ([id number]), editor managing director VILMA NAVARRETE ([id number]) on 10/05/2018 1:15:48 PM Referred By: LISA Confirmed By:YOUSIF MENDOZA MD 10/05/18 1315 Date Yousif Mendoza MD CC: No Primary Care Physician; Jua nC Evans MD; Berry Franks MD Signed 12 LEAD ELECTROCARDIOGRAM Observed: 10/05/2018 Status: F Source: [place] 1:16 PM [facility] Cardiovascular Services [address] [place] [address] 12 Lead EKG 01/24 MR#: [id number] Acct: [id number] Name: ANTON MOISE Rep #: [id number] : 1950 68 From: Yousif Mendoza MD Attending Dr: Berry Franks MD Status: DIS IN Ordering Dr: Juan C Evans MD Date: 10/02/18 Location: U Sex: F C Admitted: 10/01/18 Test Reason : EKG CHANGE Blood Pressure : / mmHG Vent. Rate : 074 BPM Atrial Rate : 074 BPM P-R Int : 140 ms QRS Dur : 084 ms QT Int : 422 ms P-R-T Axes : 050 043 072 degrees QTc Int : 468 ms Normal sinus rhythm Normal ECG When compared with ECG of 03-OCT-2014 06:02, No significant change was found Confirmed by MIGUEL GRIMALDO, YOUSIF ([id number]), editor managing director VILMA NAVARRETE ([id number]) on 10/05/2018 1:15:55 PM Referred By: LISA Confirmed By:YOUSIF MENDOZA MD 10/05/18 1315 Date Yousif Mendoza MD CC: No Primary Care Physician; Juan C Evans MD; Berry Franks MD Signed 12 LEAD ELECTROCARDIOGRAM Observed: 10/04/2018 Status: F Source: [place] 9:05 AM [facility] Cardiovascular Services [address] [place] [address] 12 Lead EKG 10/01/18 1837 MR#: [id number] Acct: [id number] Name: ANTON MOISE Rep #: [id number] : 1950 68 From: Yousif Mendoza MD Attending Dr: Berry Franks MD Status: DIS IN Ordering Dr: Jose Justice MD Date: 10/01/18 Location: [facility] Sex: F C Admitted: 10/01/18 Test Reason : CP Blood Pressure : / mmHG Vent. Rate : 161 BPM Atrial Rate : 144 BPM P-R Int : 000 ms QRS Dur : 074 ms QT Int : 300 ms P-R-T Axes : 000 057 -10 degrees QTc Int : 491 ms Atrial fibrillation with rapid ventricular response ST AND T wave abnormality, consider inferior ischemia Abnormal ECG Confirmed by YOUSIF MENDOZA MD ([id number]), editor managing director VILMA NAVARRETE ([id number]) on 10/04/2018 9:05:25 AM Referred By: NATY Confirmed By:YOUSIF MENDOZA MD 10/04/18 0905 Date Yousif Mendoza MD CC: No Primary Care Physician; Jose Justice MD; Berry Franks MD Signed DISCHARGE SUMMARY Observed: 10/02/2018 Status: F Source: [place] 5:47 PM [facility]POSITORY [facility] Medical Records Department [address] [place] [address] [place] [address] Discharge Summary 10/02/18 1026 MR#: [id number] Acct: [id number] Name: ANTON MOISE Rep #: [id number] : 1950 68 From: Leanna GUTIERREZ PCP: Care Physician, No Primary Status: DIS IN Y Location: [place] [address] ADDENDUM by Berry Franks MD on 10/02/18 at 1747 Code Visit Patient was admitted inpatient status. Patient improved sooner than expected. Patient discharged home. Inpatient E AND M: [id number] Disch Hosp 10/02/18 1747 <Electronically signed by Berry Franks MD> Date Berry Franks MD cc: CREATIVE SERVICES INTERN-C Leanna John; No Primary Care Physician; Joleen Beal; Berry Franks MD * Signed <Leanna John - Last Filed: 10/02/18 13:48> Discharge Date and Diagnosis Date of Admission: 10/01/18 Date of Discharge: 10/02/18 - Primary Discharge Diagnosis Active and Suspected Problems 1. New onset atrial fibrillation 2. CAD with history of stents 3. Nicotine dependence 4. Hypertension 5. Myoclonic disorder 6. Chronic COPD - Secondary Discharge Diagnosis Chronic Problems Hypertension (Chronic) Esophagitis (Chronic) Tobacco abuse (Chronic) Myoclonic disorder (Chronic) Hospital Course and Treatment Imaging Results: Diagnostic Data Chest X-Ray 10/01/18 18:40 IMPRESSION: No radiographic evidence of acute cardiopulmonary disease. Mild emphysema. at 1936 Reported and signed by: Michael Stewart MD Electronically Signed: Michael Stewart, at 19:35 EST Tel , Service support , Dr. Mendoza- Cardiology Operations: None Procedures: Stress test Summary of Care Provided: The patient is a 68 year old F admitted 10/01/2018 due to rapid heart rate, chest discomfort. 1. New onset atrial fibrillation-spontaneously converted to sinus rhythm. Patient underwent nuclear stress test which was negative for ischemia. Given brief episode, patient was not placed on anticoagulation. Chest x-ray without acute process. Patient will follow up with Dr. Mendoza in 1-2 weeks. Follow-up with primary care physician 1 week. 2. CAD with history of stents-patient had 2 stents placed at [facility] 7 months ago. Continue aspirin, Plavix, beta-nia. Not on statin? 3. Nicotine dependence-encouraged smoking cessation. 4. Hypertension-stable, continue home lisinopril/HCTZ regimen, metoprolol. 5. Myoclonic disorder 6. Chronic COPD-no acute exacerbation. Patient seen and examined prior to discharge. Physical assessment as noted below. Patient is stable for discharge with follow up recommendations as noted above. This patient was seen by MATT Johnson under the supervision of Dr. Franks. - Physical Exam General: Alert, Oriented x3, Cooperative, No apparent distress HEENT: Atraumatic, PERRLA, EOMI, Normocephalic Neck: Supple, No JVD, Negative Carotid Bruits Lungs: Clear to auscultation, Diminished Cardiovascular: Regular rate, Regular Rhythm, Normal S1, Normal S2, No murmurs Abdomen: Bowel Sounds Present, Soft, Non Tender, Non-Distended Extremities: No clubbing, No cyanosis, No edema, Capillary Refill Less than 3 Seconds Skin: No rashes, No breakdown Musculoskeletal: No Tenderness to Palpation of Joints or Extremities Neurological: Cranial nerves II-XII grossly intact, Neuro grossly intact, - - Spastic movements. Psych/Mental Status: Normal Affect, Appropriate Vital Signs Temp Pulse Resp BP Pulse Ox 98 F 64 16 145/60 H 95 10/02/18 09:00 10/02/18 09:41 10/02/18 09:04 10/02/18 09:00 10/02/18 09:04 Oxygen Delivery Method Room Air Weight: 147 lb 11.355 oz Body Mass Index (BMI) 23.8 Intake and Output for Last 24 Hours Intake Total 566.9 / 566.9 Balance 566.9 / 566.9 Laboratory Tests Past 24 Hrs WBC 8.6 RBC 4.64 Hgb 14.2 Hct 45.1 WBC 6.6 RBC 3.84 L Hgb 11.9 L Hct 37.7 WBC RBC Hgb Hct MCV MCH MCHC RDW RDW Differential Plt Count MPV Immature Gran % (Auto) Neut % (Auto) Lymph % (Auto) [place] % (Auto) Discharge Diet: Low fat/ Low Cholesterol Discharge Activity: Return to Normal Activity Call your doctor if you observe: Shortness of breath, Dizziness, Fainting spells, Chest pain Home Medications: Medications to take at Discharge Lisinopril/Hydrochlorothiazide [Lisinopril-Hctz 20-12.5 mg Tab] 1 tab PO DAILY 10/02/14 Metoprolol(XL)Succ [Toprol Xl (Beta Nia)] 50 mg PO DAILY 10/03/14 Aspirin [Aspir 81] 81 mg PO DAILY 10/01/18 Budesonide/Formoterol 160/4.5 [Symbicort 160/4.5 Mcg Inhaler (SP)] 2 puff IH BID 10/01/18 Clopidogrel Bisulfate [Plavix] 75 mg PO DAILY 10/01/18 Primary Care Physician: Joleen Beal [NON-STAFF] - Please follow up with your Primary Care Physician in: 1 Week Please Follow Up With: Yousif Mendoza MD - May see CREATIVE SERVICES INTERN/PA When: 1-2 Weeks Disposition: Home Minutes spent on discharge:: 35 Patient Condition:: Stable Medical Necessity - Tobacco Use Smoking Status: Current every day smoker Tobacco Use: Cigarettes Meaningful Use Info Meaningful Use Diagnoses (Choose all that apply): None applicable <Berry Franks - Last Filed: 10/02/18 17:46> Discharge Date and Diagnosis - Secondary Discharge Diagnosis Chronic Problems Hypertension (Chronic) Esophagitis (Chronic) Tobacco abuse (Chronic) Myoclonic disorder (Chronic) Hospital Course and Treatment Summary of Care Provided: This patient was seen in conjunction with Leanna MAJOR. I have independently interviewed and examined the patient and reviewed pertinent history, examination findings, laboratory and plan of management. I have reviewed the note and agree with the documented findings with the few additional points. In brief, patient is admitted for new onset A. fib which was spontaneously converted to sinus rhythm. Patient had nuclear stress test which was negative for stress-induced ischemia. Patient has comorbidities coronary artery disease with history of stents, hypertension is well controlled. Patient is discharged home. Follow-up instructions completed. I have discussed my assessment with Leanna MAJOR and orders have been reviewed. [] Subjective: Seen and examined. - Physical Exam General: Alert, Oriented x3, Cooperative HEENT: Atraumatic, PERRLA, EOMI, Normocephalic Neck: Supple, No JVD, Negative Carotid Bruits Lungs: Clear to auscultation, Diminished Cardiovascular: Regular rate, Regular Rhythm, Normal S1, Normal S2, No murmurs Abdomen: Bowel Sounds Present, Soft, Non Tender, Non-Distended Extremities: No edema, Capillary Refill Less than 3 Seconds Skin: No rashes, No breakdown Musculoskeletal: No Tenderness to Palpation of Joints or Extremities, Arthritic Changes Neurological: Cranial nerves II-XII grossly intact Psych/Mental Status: Normal Affect, Appropriate Vital Signs Temp Pulse Resp BP Pulse Ox 98 F 64 16 145/60 H 95 10/02/18 09:00 10/02/18 09:41 10/02/18 09:04 10/02/18 09:00 10/02/18 09:04 Oxygen Delivery Method Room Air Weight: 147 lb 11.355 oz Body Mass Index (BMI) 23.8 Intake and Output for Last 24 Hours Intake Total 566.9 / 566.9 Balance 566.9 / 566.9 Laboratory Tests Past 24 Hrs WBC 8.6 RBC 4.64 Hgb 14.2 Hct 45.1 WBC 6.6 RBC 3.84 L Hgb 11.9 L Hct 37.7 WBC RBC Hgb Hct MCV MCH MCHC RDW RDW Differential Plt Count MPV Immature Gran % (Auto) Neut % (Auto) Lymph % (Auto) [place] % (Auto) Code Visit OBSV DINORAH: [id number] Observation care discharge 10/02/18 1348 <Electronically signed by Leanna John CREATIVE SERVICES INTERN-C> Date Leanna John CREATIVE SERVICES INTERN-C 10/02/18 1746<Electronically signed by Berry Franks MD> Cosigner Signature (if applicable): Date Berry Franks MD CC: CREATIVE SERVICES INTERN-C Leanna John; No Primary Care Physician; Joleen Beal; Berry Franks MD Signed CONSULTATION Observed: 10/02/2018 Status: F Source: [place] 10:31 AM [facility]POSITORY [facility] Medical Records Department [address] [place] [address] Consultation 10/02/18 0742 MR#: [id number] Acct: [id number] Name: ANTON MOISE Rep #: [id number] : 1950 68 From: Yousif Mendoza MD PCP: Care Physician, No Primary Status: ADM IN Location: [place] [id number] Reason for Consult Date of Consultation: 10/02/18 Reason for Consultation: Irregular heartbeat History of Present Illness: The patient is a 68 year old F with a past medical history significant for hypertension, coronary artery disease status post inferior wall myocardial infarction in April of this year. She had presented to [facility] where she underwent an emergency cardiac catheterization which demonstrated 100% occlusion of the right coronary artery, with mild disease noted in the left anterior descending artery and a left circumflex artery. She underwent angioplasty and stenting with a drug-eluting stent to the right coronary artery. An echocardiogram performed at that time demonstrated preserved ejection fraction estimated at 62% with mild mitral tricuspid and aortic regurgitation. She has apparently done well since then has had some follow-up with them. She yesterday she was not feeling well she felt her heart was racing and so she presented to the emergency room she was noted to be in atrial fibrillation with rapid ventricular response rate with a EKG documenting 161 bpm. She was admitted to the telemetry unit and I was consulted for further evaluation and management. She had been placed on intravenous Cardizem drip. She appears to have converted back to sinus rhythm through the night. Currently she is pain-free. She has denied any chest pain, shortness of breath, paroxysmal nocturnal dyspnea or pedal edema while she was at home. [] Past Medical History Allergies/Adverse Reactions: Allergies levofloxacin [From Levaquin] Allergy (Verified 10/02/14 19:09) Rash Home Medications: Ambulatory Orders Medication Instructions Recorded Past Medical History (Chronic Problems): Chronic Problems Hypertension (Chronic) Esophagitis (Chronic) Tobacco abuse (Chronic) Myoclonic disorder (Chronic) Surgical History: adenoidectomy, hysterectomy, tonsillectomy, - - Cyst removal Psychiatric History: No pertinent psych hx FACILITIES ENGINEER History: No pertinent FACILITIES ENGINEER history, ovarian cysts - Presumed - *Family History Maternal History Items: Heart Disease, Stroke Paternal History Items: Cancer - Laryngeal, Heart Disease Smoking Status: Current every day smoker Tobacco Use: Cigarettes Review of Systems - Review of Systems General: Denies: Fever, Night Sweats, Fatigue HEENT: Denies: Vision Change Cardiovascular: Reports: Palpitations. Denies: Chest Discomfort, Shortness of Breath, Orthopnea, PND, Peripheral Edema, Lightheadedness, Dizziness, Near Syncope, Syncope Respiratory: Denies: Cough, Sputum Production, Hemoptysis Gastrointestinal: Denies: Indigestion, Hematemesis, Hematochezia, Melena Genitourinary: Denies: Dysuria, Hematuria Muscoloskeletal: Denies: Myalgias Skin: Denies: Rash Neurological: Denies: Dizziness Psychiatric: Reports: Anxiety, Depression Endocrine: Denies: Heat Intolerance, Unexplained Weight Loss Hematologic/ Lymphatic: Denies: Anemia Subjectve: Pleasant lady in no apparent distress Objective: Vital Signs Temp Pulse Resp BP Pulse Ox 98.4 F 62 17 134/78 H 97 10/02/18 02:36 10/02/18 06:59 10/02/18 06:59 10/02/18 06:59 10/02/18 06:59 Oxygen Delivery Method Room Air Weight: 147 lb 11.355 oz Body Mass Index (BMI) 23.8 Intake and Output for Last 24 Hours Intake Total 566.9 / 566.9 Balance 566.9 / 566.9 General: Awake, Alert, Oriented x 3 HEENT: PERRL, EOMI, Sclera Non Icteric Neck: Supple, Good ROM, No Lymph Node Enlargement Lungs: Clear to auscultation Cardiovascular: Regular Rhythm, Normal S1, Normal S2, No Murmurs, No Rubs, No Gallops Vascular: No Carotid Bruits, Normal Femoral Pulses, Normal Radial Pulses, Normal Dorsalis Pedal Pulse, Normal Posterior Tibial Pulses Abdomen: Bowel Sounds Present, Soft, Non Tender, No HSM, No Organomegaly Extremities: No Cyanosis, No Clubbing, No edema Musculoskeletal: No Muscle Wasting Skin: No Rashes Lymphatic: No Lymph Node Enlargement Neurological: No Focal Motor or Sensory Deficit Psych/Mental Status: Flat Affect 10/01/18 18:37: WBC 8.6, RBC 4.64, Hgb 14.2, Hct 45.1, MCV 97.2, MCH 30.6, MCHC 31.5 L, RDW 13.9, RDW Differential 49.2 H, Plt Count 303, MPV 10.6, Immature Gran % (Auto) 0.200, Neut % (Auto) 55.1, Lymph % (Auto) 35.0, [place] % (Auto) 6.3, Eos % (Auto) 2.8, Baso % (Auto) 0.6, Absolute Neuts (auto) 4.8, Total Counted Not Reportable 10/01/18 18:37: Sodium 142, Potassium 3.8, Chloride 110 H, Carbon Dioxide 24.0, Anion Gap 8, BUN 13, Creatinine 0.82, Est GFR (MDRD) Af Amer 89, Est GFR (MDRD) Non-Af 74, BUN/Creatinine Ratio 15.9, Glucose 105, Calcium 8.9, Troponin I 0.026 10/01/18 21:54: Troponin I 0.060 H 10/02/18 00:40: Troponin I 0.056 H 10/02/18 04:23: WBC 6.6, RBC 3.84 L, Hgb 11.9 L, Hct 37.7, MCV 98.2, MCH 31.0, MCHC 31.6 L, RDW 13.8, RDW Differential 48.0 H, Plt Count 236, MPV 10.6 10/02/18 04:23: Sodium 146 H, Potassium 4.1, Chloride 115 H, Carbon Dioxide 20.0 L, Anion Gap 11, BUN 12, Creatinine 0.68, Est GFR (MDRD) Af Amer 111, Est GFR (MDRD) Non-Af 91, BUN/Creatinine Ratio 17.6, Glucose 96, Calcium 8.0 L, Total Bilirubin 0.20, Direct Bilirubin 0.09, Triglycerides 156, Cholesterol 158, LDL Cholesterol 91, VLDL Cholesterol 31, HDL Cholesterol 36 L 10/02/18 04:23: PT 13.1, INR 1.0, APTT 36.0 Rhythm: EKG: Initial EKG demonstrates atrial fibrillation with a rapid ventricular response rate of 161 bpm, follow-up EKG demonstrates normal sinus rhythm with a rate of 61 bpm. Assessment/Plan 1. New onset atrial fibrillation * The patient presented with new onset atrial fibrillation and spontaneously converted to sinus rhythm. My recommendation at this time would be to assess for any ischemia. If the above is negative then I would recommend that we continue to manage her medically. At this time with one episode I do not think that we need to put her on anticoagulation. * Her previous echocardiogram demonstrated preserved ejection fraction. * I would recommend that we continue to follow her here closely medically. * 2. Coronary artery disease * She is status post coronary artery angioplasty and stenting of the right coronary artery. Depending on the results of the stress myocardial perfusion scan further recommendations will be made. At this time however I think her mild troponin elevation is likely secondary to demand ischemia. * 3. Risk factor modification * She will need aggressive blood pressure control as well as continued smoking cessation. * * . I would encourage her to follow-up here locally especially if she is going to be using as for emergency medical services. * * Thank you for allowing me to participate in the care of your patient. Please don't hesitate to call if any issues arise 10/02/18 1031 <Electronically signed by Yousif Mendoza MD> Date Yousif Mendoza MD Cosigner Signature (if applicable): Date CC: No Primary Care Physician; Yousif Mendoza MD Signed DISCHARGE INSTRUCTION Observed: 10/02/2018 Status: F Source: [place] 10:26 AM [facility]ORY [facility] Medical Records Department [address] [place] [address] Instructions for Home/Discharge Instructions 10/02/18 1024 MR#: [id number] Acct: [id number] Name: ANTON MOISE Rep #: [id number] : 1950 68 From: Leanna FULTONC PCP: Care Physician, No Primary Status: ADM IN - Discharge Diagnoses Current Active Problems: Current Active and Chronic Problems Atrial fibrillation with RVR (Acute) You will use the following diet at home:: Cardiac Discharge Activity: Return to Normal Activity Call your doctor if you observe: Shortness of breath, Dizziness, Fainting spells, Chest pain Allergies/Adverse Reactions: Allergies levofloxacin [From Levaquin] Allergy (Verified 10/02/14 19:09) Rash Medications to take at Discharge Lisinopril/Hydrochlorothiazide [Lisinopril-Hctz 20-12.5 mg Tab] 1 tab PO DAILY 10/02/14 Metoprolol(XL)Succ [Toprol Xl (Beta Nia)] 50 mg PO DAILY 10/03/14 Aspirin [Aspir 81] 81 mg PO DAILY 10/01/18 Budesonide/Formoterol 160/4.5 [Symbicort 160/4.5 Mcg Inhaler (SP)] 2 puff IH BID 10/01/18 Clopidogrel Bisulfate [Plavix] 75 mg PO DAILY 10/01/18 Primary Care Physician: Joleen Beal [NON-STAFF] - Please follow up with your Primary Care Physician in: 1 Week Test Results: Test results from this visit will be discussed in further detail at your follow-up appointment, if applicable. Please Follow Up With: Yousif Mendoza MD - May see [employer] INTERN/PA When: 1-2 Weeks Proposed Discharge Date: 10/02/18 10/02/18 1026 <Electronically signed by Leanna GUTIERREZ> Date Leanna GUTIERREZ CC: No Primary Care Physician; Yousif Mendoza MD Signed STRESS REPORT Observed: 10/02/2018 Status: F Source: [place] 9:43 AM [facility]ORY [facility] Cardiovascular Services [address] [place] [address] MR#: [id number] Acct: [id number] Name: ANTON MOISE Rep #: [id number] : 1950 68 From: Yousif Mendoza MD Primary Care: Care Physician, No Primary Status: ADM IN Ordering Dr: Sex: F C Stress Test Report Pharmacologic myocardial perfusion stress test. 68-year-old lady with a history of coronary artery disease and atrial fibrillation. Medications: Lisinopril metoprolol Plavix and aspirin. Stress protocol: Resting EKG demonstrates normal sinus rhythm with a rate of 61 bpm normal intervals are noted resting blood pressure 152/80 mmHg. 0.4 mg of regadenoson was infused per usual protocol followed by rapid intravenous saline flush injection continuous EKG monitoring was performed the maximum heart rate attained was 91 bpm which was 59% of maximum predicted heart rate the maximum workload was 1 metabolic equivalent. The patient maintained sinus rhythm throughout the recording. At rest and during peak infusion there were no ST or T wave changes noted suggest ischemia. Resting blood pressure 152/80 with a final blood pressure 150/76. Myocardial perfusion protocol. 11.6 mCi of technetium 99m sestamibi was injected at rest. 0.4 mg of regadenoson was infused per usual protocol peak infusion 35.0 mCi of technetium 99m sestamibi was injected stress images were obtained stress and rest images were reconstructed and compared in the short axis vertical long horizontal long axis. Gated images were also obtained Perfusion SPECT analysis. Review of the images demonstrate normal uptake of tracer noted in all areas of the myocardium. The resting images especially involving the inferior wall demonstrated normal perfusion in all areas of the myocardium. No areas of reversibility are noted suggest ischemia. Gated SPECT analysis: The gated ejection fraction is noted to be 73%. Conclusion: Normal pharmacologic myocardial perfusion stress test. Preserved ejection fraction. 10/02/18942 <Electronically signed by Yousif Mendoza MD> Date Yousif Mendoza MD CC: No Primary Care Physician; Berry Franks MD Date Dictated: 10/02/18940 Date Transcribed: 10/02/18940 Television Installer: CO Signed CBC-COMPLETE BLOOD CNT Collected: 10/02/2018 Status: F Source: [place] NO DIFF 4:23 AM [facility]POS[facility] TYPE CODE TESTS RESULT OUT OF RANGE REFERENCE UNITS LAB L100.1000 4.4-11.0 K/mm3 Normal WBC 6.6 LAB L100.1200 4.2-5.4 M/mm3 Low RBC 3.84 LAB L100.1300 12.0-15.0 g/dl Low HGB 11.9 LAB L100.1400 37-47 % Normal HCT 37.7 LAB L100.1500 81-99 fL Normal MCV 98.2 LAB L100.1600 27.0-32.0 pg Normal MCH 31.0 LAB L100.1700 32-36 g/gl Low MCHC 31.6 LAB L100.1810 11.6-14.6 % Normal RDW CV 13.8 LAB L100.1820 35.1-43.9 fl High RDW SD 48.0 LAB L100.1900 150-450 K/mm3 Normal PLT 236 LAB L100.2000 6.2-12.0 fl Normal MPV 10.6 Performed By: #### L100.0500 #### [facility] [address] [place], [address] PROTHROMBIN TIME W/INR Collected: 10/02/2018 Status: F Source: [place] 4:23 AM [facility] TYPE CODE TESTS RESULT OUT OF RANGE REFERENCE UNITS LAB L300.4150 11.7-14.9 SECONDS Normal PROTIME 13.1 LAB L300.4200 Normal INR 1.0 Performed By: #### L300.3900, L300.4310 #### [facility] [address] [place], [address] PARTIAL THROMBOPLAST Collected: 10/02/2018 Status: F Source: [place] TIME 4:23 AM [facility] TYPE CODE TESTS RESULT OUT OF RANGE REFERENCE UNITS LAB L300.4310 24.1-36.2 Seconds Normal PTT 36.0 Performed By: #### L300.3900, L300.4310 #### [facility] [address] [place], [address] COMPREHENSIVE METABOLIC Collected: 10/02/2018 Status: F Source: [place] PROFIL 4:23 AM [facility]POS[facility] Order Comment: Comments: Fasting Lipid Profile TYPE CODE TESTS RESULT OUT OF RANGE REFERENCE UNITS LAB L501.0100 74-106 mg/dL Normal GLU 96 Result Comment: Please note revised GLUCOSE reference range effective 2017. LAB L501.1000 7-18 mg/dL Normal BUN 12 LAB L501.1100 0.55-1.02 mg/dL Normal CREAT,SERUM 0.68 Result Comment: The validity of the calculated GFR AND GFRAA in patients over 70 years has not been determined. Clinical correlation is essential. LAB L501.1110 >60 mL/min Normal EST GFR 91 Result Comment: Non- GFR Calc LAB L501.1115 >60 mL/min Normal EST GFR - AA 111 Result Comment: GFR Calc LAB L501.1255 ml/min Normal Estimated CRCL 51.11 LAB L501.1300 10-20 RATIO Normal BUN/CRE 17.6 LAB L501.1500 6.4-8. g/dL Low 2 T PROT 5.8 LAB L501.1800 3.2-5. g/dL Normal 0 ALB 3.2 LAB L501.1950 2.2-4. g/dL Normal 2 GLOB 2.6 LAB L501.2000 0.9-2. RATIO Normal 4 A/G 1.2 LAB L501.2200 8.5-10 mg/dL Low .1 CA 8.0 LAB L501.4100 15-37 U/L Low AST 12 LAB L501.4305 45-117 U/L Normal ALK P 76 LAB L501.4405 13-56 U/L Normal ALT 17 LAB L501.4600 0.20-1 mg/dL Normal .00 T BILI 0.20 LAB L501.5300 136-14 mmol/L High 5 NA 146 LAB L501.5600 3.5-5. mmol/L Normal 1 K 4.1 LAB L501.5900 98-107 mmol/L High CL 115 LAB L501.6100 21.0-3 mmol/L Low 2.0 CO2 20.0 LAB L501.6200 5-15 Normal GAP 11 Performed By: #### L500.4050, L500.4100, L501.4700, L501.9520 #### [facility] [address] [place], [place], [id number] LIPID PROFILE Collected: 10/02/2018 Status: F Source: [place] 4:23 AM [facility] Order Comment: Comments: Fasting Lipid Profile TYPE CODE TESTS RESULT OUT OF RANGE REFERENCE UNITS LAB L501.4900 200 mg/dL Normal CHOL 158 Result Comment: <200 mg/dL Desirable 200-240 mg/dL Borderline >240 mg/dL High Risk LAB L501.5000 mg/dL Normal TRIG 156 Result Comment: The drugs N-Acetylcysteine and Metamizole may falsely depress this assay. Serum Triglycerides Reference Interval Normal <150 mg/dL Borderline high 150 - 199 mg/dL High 200 - 499 mg/dL Very High > or = 500 mg/dL LAB L501.6400 mg/dL Low HDL 36 Result Comment: The drugs N-Acetylcysteine and Metamizole may falsely depress this assay. Reference Range HDL <40 mg/dL Low HDL Cholesterol HDL >or= 60 mg/dL High HDL Cholesterol LAB L501.6500 0-130 mg/dL Normal LDL 91 LAB L501.6600 5-40 mg/dL Normal VLDL 31 Performed By: #### L500.4050, L500.4100, L501.4700, L501.9520 #### [facility] [address] [place], [place], [address] BILIRUBIN, DIRECT Collected: 10/02/2018 Status: F Source: [place] 4:23 AM [facility] Order Comment: Comments: Fasting Lipid Profile TYPE CODE TESTS RESULT OUT OF RANGE REFERENCE UNITS LAB L501.4700 0.00-0.30 mg/dL Normal D BILI 0.09 Performed By: #### L500.4050, L500.4100, L501.4700, L501.9520 #### [facility] [address] [place], [address] THYROID STIM HORMONE Collected: 10/02/2018 Status: F Source: [place] (TSH) 4:23 AM [facility] Order Comment: Comments: Fasting Lipid Profile TYPE CODE TESTS RESULT OUT OF RANGE REFERENCE UNITS LAB L501.9520 0.358-3.74 uIU/mL Normal TSH 2.53 Performed By: #### L500.4050, L500.4100, L501.4700, L501.9520 #### [facility] [address] [place], [place], [address] TROPONIN-I Collected: 10/02/2018 Status: F Source: [place] 12:40 AM [facility] Order Comment: 'TROP' Serial specimen #1, #2 or #3: 3 TYPE CODE TESTS RESULT OUT OF RANGE REFERENCE UNITS LAB L501.4010 <0.045 ng/mL High 0.056 TROPONIN-I Result Comment: TROPONIN-I EXPECTED VALUES <0.045 Negative 0.045 - 0.590 Consistent with Cardiac Damage > OR = 0.600 Critical Value Not every elevated troponin is indicative of CO. These values should be used with clinical judgement in examining the patient's clinical picture for diagnosis. To establish a diagnosis of CO versus myocardial injury, there must be a demonstrated rise and/or fall in the troponin values, in addition to ischemic symptoms, EKG changes, new regional wall motion abnormality, and/or angiographical evidence. PLEASE NOTE: REFERENCE RANGES EDITED 18 Performed By: #### L501.4010 #### [facility] [address] [facility] [place], [address] EMERGENCY DEPARTMENT Observed: 10/02/2018 Status: F Source: [place] SUMMARY 12:00 AM [facility] Medical Records Department [address] [place] [address] Emergency Department Summary 10/01/18 1859 MR#: [id number] Acct: [id number] Name: ANTON MOISE Rep #: [id number] : 1950 68 From: Jose Justice MD PCP: Care Physician, No Primary Status: ADM IN - ER Visit Summary Date of Service: 10/01/18 Chief Complaint: Chest pain and irregular heart rate History of Present Illness: The patient is a 68 F history of CO and CAD with 2 cardiac stents placed within the last year at [facility]. Also COPD and hypertension. Patient is anticoagulated on both Plavix and aspirin. She states earlier today she had a fast irregular heart rate with dizziness and burning chest discomfort. Physical Examination: Older female vital signs initial heart rates 163 obvious A. fib RVR on the monitor. Her initial blood pressure is 117/81. HEENT exam unremarkable. Neck nontender. Lungs clear to auscultation bilaterally. Heart irregularly irregular rate 160 no murmur. Abdomen soft nontender. Extremities moves all 4. Calves nontender without edema or cords. Neurologically she is awake alert with no focal motor deficits. Test Results: Chest x-ray chronic changes and COPD no acute process read both myself and radiologist. EKG A. fib RVR with rate dependent ischemia with ST depression anterolaterally. CBC normal. Chemistries unremarkable normal creatinine and gap. Troponin normal. Emergency Department Course and Treatment: Patient in new onset A. fib RVR. Will be treated with a Cardizem bolus. P.o. aspirin. She will need admitted. Treatment Plan: Patient's heart rate continued to be greater than 130 after the first dose of Cardizem therefore was started on a Cardizem drip. I spoke to the hospitalist about admission in the PCU. Disposition: Admission Impression: New onset atrial fibrillation with rapid ventricular rate Acute chest pain History of CAD with 2 cardiac stents Anticoagulated on Plavix and aspirin This note was generated with [employer] dictation software. It may contain incorrect words, spelling, and punctuation that were not noted in review of the chart prior to signing ED Disposition - Plan for ED Patient: Chief Complaint: Chest Pain Referrals: Joleen Beal [NON-STAFF] - What to do if you have Problems For any increased pain, shortness of breath, bleeding, nausea or vomiting, chest pain, or any unexpected problems, contact your Primary Care Provider. Call [facility] ([phone]) or report to the closest Emergency Room. Call 911 if necessary. 10/02/18 0000 <Electronically signed by Jose Justice MD> Date Jose Justice MD Cosigner Signature (If Indicated): Date CC: No Primary Care Physician TROPONIN-I Collected: 10/01/2018 Status: F Source: [place] 9:54 PM [facility] REPOSIT[facility] Order Comment: 'TROP' Serial specimen #1, #2 or #3: 2 TYPE CODE TESTS RESULT OUT OF RANGE REFERENCE UNITS LAB L501.4010 <0.045 ng/mL High 0.060 TROPONIN-I Result Comment: TROPONIN-I EXPECTED VALUES <0.045 Negative 0.045 - 0.590 Consistent with Cardiac Damage > OR = 0.600 Critical Value Not every elevated troponin is indicative of CO. These values should be used with clinical judgement in examining the patient's clinical picture for diagnosis. To establish a diagnosis of CO versus myocardial injury, there must be a demonstrated rise and/or fall in the troponin values, in addition to ischemic symptoms, EKG changes, new regional wall motion abnormality, and/or angiographical evidence. PLEASE NOTE: REFERENCE RANGES EDITED 18 Performed By: #### L501.4010 #### [facility] [address] [place], [address] HISTORY AND PHYSICAL Observed: 10/01/2018 Status: F Source: [place] EXAM 9:17 PM [facility] Medical Records Department [address] [place] [address] History and Physical 10/01/18 210 MR#: [id number] Acct: [id number] Name: ANTON MOISE Rep #: [id number] : 1950 68 From: Juan C Evans MD PCP: Care Physician, No Primary Status: ADM IN Y Location: U [id number] Problem List (1) Atrial fibrillation with RVR Status: Acute (2) Irritable bowel Status: Suspected (3) Hypertension Status: Chronic (4) Chest pain Status: Acute (5) Tobacco abuse Status: Chronic (6) Myoclonic disorder Status: Chronic History of Present Illness Date of Admission: 10/01/18 Chief Complaint: rapid heart rate, chest discomfort The patient is a 68 year old female patient with a significant past medical history of coronary artery disease(2 stents 7 months ago at [facility]), COPD and myoclonic jerking disorder presents with chest discomfort and rapid heart rate. Last night she noticed she wasn't feeling well and had some tingling discomfort in her left wrist and proceeded to go to bed. She felt unwell when she woke up and noticed a fluttering sensation in her chest. She did not seek medical attention but continued drinking several cups of coffee and smoking cigarettes. Her discomfort worsened so she came to the ER for evaluation. She was in atrial fibrillation with rapid ventricular response. Troponin was 0.026. Other labs were unremarkable. She will be admitted to PCU and cardiology consulted. Past Medical History Past Medical History (Chronic Problems): Chronic Problems Hypertension (Chronic) Esophagitis (Chronic) Tobacco abuse (Chronic) Myoclonic disorder (Chronic) Allergies levofloxacin [From Levaquin] Allergy (Verified 10/02/14 19:09) Rash Home Medications: Ambulatory Orders Medication Instructions Recorded Surgical History: adenoidectomy, hysterectomy, tonsillectomy, - - Cyst removal Psychiatric History: No pertinent psych hx FACILITIES ENGINEER History: No pertinent FACILITIES ENGINEER history, ovarian cysts - Presumed Smoking Status: Current every day smoker - *Family History Maternal History Items: Heart Disease, Stroke Paternal History Items: Cancer - Laryngeal, Heart Disease Review of Systems Constitutional: Denies: Chills, Fever, Weight Change HEENT: Denies: Head Aches, Sinus Congestion, Sinus Drainage Cardiovascular: Reports: Chest Pain, Palpitations Respiratory: Denies: Cough, Shortness of breath at rest, Sputum production Gastrointestinal: Denies: Abdominal Pain, Nausea, Vomiting Genitourinary: Denies: Dysuria Musculoskeletal: Denies: Joint Pain, Joint Tenderness Skin: Denies: Rash, Wounds Neurological: Denies: Numbness, Tingling, Focal weakness Psychiatric: Denies: Anxiety, Depression, Homicidal Ideations, Suicidal Ideations Hematologic/ Lymphatic: Denies: Easy Bruising, Easy Bleeding VTE Information - Inpt Only VTE Present on Admission: No VTE Mechan Device Prophylaxis: None VTE Pharm Prophylaxis ordered?: Yes Patient Problems: Active and Suspected Problems Atrial fibrillation with RVR (Acute) - Physical Exam General: Alert, Oriented x3, Cooperative HEENT: Atraumatic, Normocephalic Neck: Supple, No JVD, Negative Carotid Bruits Lungs: Clear to auscultation, Normal air movement Cardiovascular: Normal S1, Normal S2, No murmurs, Irregular Rate, Tachycardic Abdomen: Bowel Sounds Present, Soft, Non Tender Extremities: No edema Skin: No rashes Musculoskeletal: No Tenderness to Palpation of Joints or Extremities Neurological: Neuro grossly intact Psych/Mental Status: Normal Affect, Appropriate Vital Signs Temp Pulse Resp BP Pulse Ox 97.3 F L 113 H 23 H 95/64 97 10/01/18 18:34 10/01/18 20:13 10/01/18 20:13 10/01/18 20:13 10/01/18 20:13 Oxygen Delivery Method Room Air Weight: 140 lb Body Mass Index (BMI) 22.6 Laboratory Tests Past 24 Hrs WBC 8.6 RBC 4.64 Hgb 14.2 Hct 45.1 MCV 97.2 MCH 30.6 MCHC 31.5 L RDW 13.9 Assessment/Plan All Active Problems Atrial fibrillation with RVR (Acute) Abnormal nuclear stress test (Acute) Chest pain (Acute) Chronic Problems Hypertension (Chronic) Esophagitis (Chronic) Tobacco abuse (Chronic) Myoclonic disorder (Chronic) Plan 1. Atrial Fibrillation /RVR -- admit to PCU, continue Cardizem drip, consult Dr Mendoza 2. Chest Pain/ CAD--cycle cardiac markers, morphine, aspirin, and nitro prn per routine. Adenosine nuclear stress test in AM 3. Nicotine abuse -- ok 14mg patch smoking cessation encourage (G0436) >10min counseling performed on this issue 4. DVT prophylaxis- LMWH Code Visit Inpatient E AND M: 92039 Init Hosp L3 10/01/182116 <Electronically signed by Juan C Evans MD> Date Juan C Evans MD Cosigner Signature: Date (if applicable) CC: No Primary Care Physician; Juan C Evans MD Signed CHEST 1 VIEW Observed: 10/01/2018 Status: F Source: [place] (PORTABLE) 6:40 PM [facility] RE[facility] Imaging Services [address] [place] [address] Chest 1 View (Portable) MR#: [id number] Acct: [id number] Name: ANTON MOISE Rep #: [id number] : 1950 F 68 From: Michael Stewart MD PCP: Care Physician, No Primary Status: REG ER Study: Chest 1 View (Portable) Date of Exam: 10/01/18 Exam# [id number] Ordering Dr: Jose Justice MD HISTORY: MIDSTERNAL CHEST PAIN, PALPITATIONS AND TACHYCARDIA EXAM: XR Chest 1 View: COMPARISON: CT chest 10/02/14. FINDINGS: # of images incl. paperwork: 1 LINES/DEVICES: None. LUNGS: No evidence of pneumonia, pulmonary edema, or other acute pathology. Mild emphysema, mild linear atelectasis/scarring left lung base. MEDIASTINUM AND CARDIOVASCULAR STRUCTURES: Cardiac silhouette not enlarged. Central airways and mediastinal contour are unremarkable. Atherosclerosis thoracic aorta. BONES AND SOFT TISSUES: Unremarkable. RAD/Chest 1 View (Portable) IMPRESSION: No radiographic evidence of acute cardiopulmonary disease. Mild emphysema. at 1935 Reported and signed by: Michael Stewart MD Electronically Signed: Michael Stewart, at 19:35 EST Tel , Service support , CC: No Primary Care Physician; Jose Justice MD Television Installer: Signed BASIC METABOLIC Collected: 10/01/2018 Status: F Source: [place] PROFILE (BMP) 6:37 PM [facility] REPOSIT[facility] TYPE CODE TESTS RESULT OUT OF RANGE REFERENCE UNITS LAB L501.0100 74-106 mg/dL Normal GLU 105 Result Comment: Fasting Glucose result from 100 to 125 mg/dL suggests IMPAIRED HOMEOSTASIS per A.D.A. criteria. Please note revised GLUCOSE reference range effective 2017. LAB L501.1000 7-18 mg/dL Normal BUN 13 LAB L501.1100 0.55-1.02 mg/dL Normal CREAT,SERUM 0.82 Result Comment: The validity of the calculated GFR AND GFRAA in patients over 70 years has not been determined. Clinical correlation is essential. LAB L501.1110 >60 mL/min Normal EST GFR 74 Result Comment: Non- GFR Calc LAB L501.1115 >60 mL/min Normal EST GFR - AA 89 Result Comment: GFR Calc LAB L501.1255 ml/min Normal Estimated CRCL 62.32 LAB L501.1300 10-20 RATIO Normal BUN/CRE 15.9 LAB L501.2200 8.5-10 mg/dL Normal .1 CA 8.9 LAB L501.5300 136-14 mmol/L Normal 5 NA 142 LAB L501.5600 3.5-5. mmol/L Normal 1 K 3.8 LAB L501.5900 98-107 mmol/L High CL 110 LAB L501.6100 21.0-3 mmol/L Normal 2.0 CO2 24.0 LAB L501.6200 5-15 Normal GAP 8 Performed By: #### L500.2500, L501.4010 #### [facility] [address] [place], [address] TROPONIN-I Collected: 10/01/2018 Status: F Source: [place] 6:37 PM [facility] TYPE CODE TESTS RESULT OUT OF RANGE REFERENCE UNITS LAB L501.4010 <0.045 ng/mL Normal 0.026 TROPONIN-I Result Comment: TROPONIN-I EXPECTED VALUES <0.045 Negative 0.045 - 0.590 Consistent with Cardiac Damage > OR = 0.600 Critical Value Not every elevated troponin is indicative of CO. These values should be used with clinical judgement in examining the patient's clinical picture for diagnosis. To establish a diagnosis of CO versus myocardial injury, there must be a demonstrated rise and/or fall in the troponin values, in addition to ischemic symptoms, EKG changes, new regional wall motion abnormality, and/or angiographical evidence. PLEASE NOTE: REFERENCE RANGES EDITED 18 Performed By: #### L500.2500, L501.4010 #### [facility] [place], [address] CBC W/DIFF, AUTOMATED Collected: 10/01/2018 Status: F Source: [place] 6:37 PM [facility] REPOSIT[facility] TYPE CODE TESTS RESULT OUT OF RANGE REFERENCE UNITS LAB L100.1000 4.4-11.0 K/mm3 Normal WBC 8.6 LAB L100.1200 4.2-5.4 M/mm3 Normal RBC 4.64 LAB L100.1300 12.0-15.0 g/dl Normal HGB 14.2 LAB L100.1400 37-47 % Normal HCT 45.1 LAB L100.1500 81-99 fL Normal MCV 97.2 LAB L100.1600 27.0-32.0 pg Normal MCH 30.6 LAB L100.1700 32-36 g/gl Low MCHC 31.5 LAB L100.1810 11.6-14.6 % Normal RDW CV 13.9 LAB L100.1820 35.1-43.9 fl High RDW SD 49.2 LAB L100.1900 150-450 K/mm3 Normal PLT 303 LAB L100.2000 6.2-12.0 fl Normal MPV 10.6 LAB L100.2100 47-70 % Normal NEUT% 55.1 LAB L100.2200 19-41 % Normal LY% 35.0 LAB L100.2300 0-10 % Normal MONO% 6.3 LAB L100.2400 0-5 % Normal EO% 2.8 LAB L100.2500 0-1 % Normal BASO% 0.6 LAB L100.2550 0.0-0.9 % Normal IM GRAN % 0.200 Result Comment: IG% - Immature Granulocytes (promyelocytes, myelocytes and metamyelocytes) > 1% indicates that a LEFT SHIFT is Present. LAB L100.2620 2.0-7.7 X10 3/uL Normal Absolute Neut 4.8 LAB L100.2720 0.83-4.51 X10 3/ul Normal Absolute Lymph 3.02 Performed By: #### L100.0100 #### [facility] [place], [address] CR CHEST PA/LAT Observed: 05/22/2018 Status: F Source: [place] 3:33 PM SYSTEM REPOSITORY Patient Name: JONATHAN MOISE Diagnostic Radiology Exam Date/Time 05/22/2018 15:08:19 EDT Exam CR Chest PA/LAT Ordering Physician MD ANGELO MAMIE Accession Number [id number] CPT4 Codes 81512 () Reason For Exam chest pain Report CHEST X-RAY PA/LATERAL CLINICAL INDICATION: Chest pain and nausea. Elevated blood pressure. Frontal and lateral plain films of the chest were obtained. COMPARISON: 05/08/2018 FINDINGS: There is bilateral pulmonary hyperinflation with attenuated pulmonary veins suggesting emphysema. The cardiac silhouette is within normal limits. Lingular subsegmental atelectasis versus scar is redemonstrated. No focal consolidation is seen within the lungs. No pleural effusion or pneumothorax is identified. Thoracic degenerative spondylosis. IMPRESSION: Hyperinflated lungs with mild emphysematous changes. Lingular subsegmental versus versus parenchymal scar, unchanged. No acute consolidation or pulmonary edema. Report Dictated on Workstation: [id number] Final Dictating Physician: SHAHRZAD PALMA DO, I Signed Date and Time: 05/22/2018 3:35 pm Signed by: SHAHRZAD PALMA DO, I Transcribed Date and Time: 05/22/2018 3:36 HEMOGRAM W/ AUTODIFF Collected: 05/22/2018 Status: F Source: [place] 2:47 PM SYSTEM REPOSITORY TYPE CODE TESTS RESULT OUT OF REFERENCE UNITS RANGE LAB IWBC 3.6-10.7 10*3/uL WBC Normal 8.9 LAB RBC 3.80-5.20 10*6/uL RBC Normal 4.47 LAB HGB 11.7-16.0 g/dL Hemoglobin Normal 13.7 LAB HCT 35.0-47.0 % Hematocrit Normal 41.6 LAB MCV 79.0-98.0 fL MCV Normal 93.1 LAB MCH 26.0-34.0 pg MCH Normal 30.6 LAB MCHC 32.0-36.0 % MCHC Normal 32.8 LAB RDW 11.5-14.5 % RDW Normal 13.5 LAB PLT 140-440 10*3/uL Platelet Normal 288 LAB MPV 7.4-10.4 fL MPV Normal 9.0 LAB GRAN% 40.0-80.0 % Granulocytes Normal 72.6 LAB LYMP% 20.0-40.0 % Low Lymphocytes 19.6 LAB MONO% 2.0-10.0 % Monocytes Normal 5.1 LAB EOS% 1.0-6.0 % Eosinophils Normal 1.7 LAB BAS% 0.0-2.0 % Basophils Normal 1.0 LAB ANC 1.8-7.0 10*3/uL Abs Normal Neutrophile Cnt 6.4 LAB ALC 1.0-4.3 10*3/uL Abs Lymph Cnt Normal 1.7 LAB AMC 0.0-0.8 10*3/uL Abs Monocyte Normal Cnt 0.4 LAB AEC 0.0-0.5 10*3/uL Abs Eosin Cnt Normal 0.1 LAB ABC 0.0-0.2 10*3/uL Abs Baso Cnt Normal 0.1 Performed By: #### HEMDF, BMP3, TROPN #### [facility] [address] [place] [address] BASIC METABOLIC PANEL Collected: 05/22/2018 Status: F Source: [facility] 2:47 PM SYSTEM REPOSITORY TYPE CODE TESTS RESULT OUT OF RANGE REFERENCE UNITS LAB NA3 137-145 mmol/L Sodium Normal 144 LAB K3 3.5-5.1 mmol/L Normal Potassium 4.0 LAB CL3 98-107 mmol/L Chloride Normal 107 LAB CO23 22-30 mmol/L Carbon Normal Dioxide 26 LAB ANIN3 NA Anion Gap 11 LAB GLUC3 70-100 mg/dL Glucose Normal 96 LAB BUN3 7-20 mg/dL Urea Normal Nitrogen 9 LAB CRET3 0.52-1.25 mg/dL Normal Creatinine 0.67 LAB GF3BR >60 mL/min eGFR > 60.0 LAB GF3WR >60 mL/min eGFR OTHER > 60.0 Result Comment: Source- MDRD equation with creatinine calibration to IDMS(NKDEP) eGFR not recommended for drug dose adjustment LAB CA3 8.4-10.4 mg/dL Normal Calcium 9.5 Performed By: #### HEMDF, BMP3, TROPN #### [facility] [address] [place] [address] TROPONIN I Collected: 05/22/2018 Status: F Source: [facility] 2:47 PM SYSTEM REPOSITORY TYPE CODE TESTS RESULT OUT OF RANGE REFERENCE UNITS LAB TROP4 0.000-0.034 ng/mL Normal Troponin I 0.034 Result Comment: 0.046 - 0.400 = Indeterminate > 0.400 = Consider Myocardial Injury Performed By: #### HEMDF, BMP3, TROPN #### [facility] [address] [place] [address] COMP METABOLIC PANEL Collected: 05/20/2018 Status: F Source: [facility] 10:18 AM SYSTEM REPOSITORY TYPE CODE TESTS RESULT OUT OF RANGE REFERENCE UNITS LAB NA3 137-145 mmol/L Sodium Normal 144 LAB K3 3.5-5.1 mmol/L Normal Potassium 4.5 LAB CL3 98-107 mmol/L High Chloride 109 LAB CO23 22-30 mmol/L Carbon Normal Dioxide 27 LAB ANIN3 NA Anion Gap 7 LAB GLUC3 70-100 mg/dL Glucose Normal 94 LAB BUN3 7-20 mg/dL Urea Normal Nitrogen 11 LAB CRET3 0.52-1.25 mg/dL Normal Creatinine 0.69 LAB GF3BR >60 mL/min eGFR > 60.0 LAB GF3WR >60 mL/min eGFR OTHER > 60.0 Result Comment: Source- MDRD equation with creatinine calibration to IDMS(NKDEP) eGFR not recommended for drug dose adjustment LAB CA3 8.4-10.4 mg/dL Calcium Normal 9.1 LAB ALB3 3.5-5.0 g/dL Albumin, Serum Normal 3.9 LAB TP3 6.3-8.2 g/dL Total Protein Normal 6.5 LAB BILT3 0.2-1.3 mg/dL Normal Bilirubin,Total 0.3 LAB ALKP3 38-126 U/L Alkaline Normal Phosphatase 75 LAB ALT3 13-69 U/L ALT (SGPT) Normal 27 LAB AST3 15-46 U/L AST (SGOT) Normal 17 Performed By: #### CMP3 #### [facility] [address] [facility] [address] HEMOGRAM W/ AUTODIFF Collected: 05/10/2018 Status: F Source: [facility] 1:56 AM SYSTEM REPOSITORY TYPE CODE TESTS RESULT OUT OF REFERENCE UNITS RANGE LAB IWBC 3.6-10.7 10*3/uL WBC Normal 7.7 LAB RBC 3.80-5.20 10*6/uL RBC Normal 3.98 LAB HGB 11.7-16.0 g/dL Hemoglobin Normal 12.5 LAB HCT 35.0-47.0 % Hematocrit Normal 37.2 LAB MCV 79.0-98.0 fL MCV Normal 93.3 LAB MCH 26.0-34.0 pg MCH Normal 31.4 LAB MCHC 32.0-36.0 % MCHC Normal 33.7 LAB RDW 11.5-14.5 % RDW Normal 13.6 LAB PLT 140-440 10*3/uL Platelet Normal 266 LAB MPV 7.4-10.4 fL MPV Normal 8.4 LAB GRAN% 40.0-80.0 % Granulocytes Normal 64.9 LAB LYMP% 20.0-40.0 % Lymphocytes Normal 23.3 LAB MONO% 2.0-10.0 % Monocytes Normal 8.6 LAB EOS% 1.0-6.0 % Eosinophils Normal 2.5 LAB BAS% 0.0-2.0 % Basophils Normal 0.7 LAB ANC 1.8-7.0 10*3/uL Abs Normal Neutrophile Cnt 5.0 LAB ALC 1.0-4.3 10*3/uL Abs Lymph Cnt Normal 1.8 LAB AMC 0.0-0.8 10*3/uL Abs Monocyte Normal Cnt 0.7 LAB AEC 0.0-0.5 10*3/uL Abs Eosin Cnt Normal 0.2 LAB ABC 0.0-0.2 10*3/uL Abs Baso Cnt Normal 0.1 Performed By: #### HEMDF, CKMBS, CMP3, MG3, [id number] #### [facility] [address] [place] [phone] CKMB SCREEN Collected: 05/10/2018 Status: F Source: [facility] 1:56 AM SYSTEM REPOSITORY TYPE CODE TESTS RESULT OUT OF RANGE REFERENCE UNITS LAB CK3 30-170 U/L Normal CK 158 Performed By: #### HEMDF, CKMBS, CMP3, MG3, [id number] #### [facility] [address] [place] [phone] COMP METABOLIC PANEL Collected: 05/10/2018 Status: F Source: [facility] 1:56 AM SYSTEM REPOSITORY TYPE CODE TESTS RESULT OUT OF RANGE REFERENCE UNITS LAB NA3 137-145 mmol/L Sodium Normal 141 LAB K3 3.5-5.1 mmol/L Normal Potassium 4.0 LAB CL3 98-107 mmol/L High Chloride 111 LAB CO23 22-30 mmol/L Carbon Normal Dioxide 22 LAB ANIN3 NA Anion Gap 8 LAB GLUC3 70-100 mg/dL High Glucose 102 LAB BUN3 7-20 mg/dL Urea Normal Nitrogen 13 LAB CRET3 0.52-1.25 mg/dL Normal Creatinine 0.75 LAB GF3BR >60 mL/min eGFR > 60.0 LAB GF3WR >60 mL/min eGFR OTHER > 60.0 Result Comment: Source- MDRD equation with creatinine calibration to IDMS(NKDEP) eGFR not recommended for drug dose adjustment LAB CA3 8.4-10.4 mg/dL Calcium Normal 8.9 LAB ALB3 3.5-5.0 g/dL Albumin, Serum Normal 4.2 LAB TP3 6.3-8.2 g/dL Total Protein Normal 6.8 LAB BILT3 0.2-1.3 mg/dL Normal Bilirubin,Total 0.5 LAB ALKP3 38-126 U/L Alkaline Normal Phosphatase 78 LAB ALT3 13-69 U/L ALT (SGPT) Normal 21 LAB AST3 15-46 U/L AST (SGOT) Normal 36 Performed By: #### HEMDF, CKMBS, CMP3, MG3, [id number] #### [facility] [address] [place] [phone] MAGNESIUM Collected: 05/10/2018 Status: F Source: [facility] 1:56 AM SYSTEM REPOSITORY TYPE CODE TESTS RESULT OUT OF RANGE REFERENCE UNITS LAB MG3 1.6-2.3 mg/dL Normal Magnesium 2.1 Performed By: #### HEMDF, CKMBS, CMP3, MG3, [id number] #### [facility] [address] [place] [phone] CKMB FRACTIONATION Collected: 05/10/2018 Status: F Source: [facility] 1:56 AM SYSTEM REPOSITORY TYPE CODE TESTS RESULT OUT OF REFERENCE UNITS RANGE LAB RI3 0.0-3.0 NA High Relative Index 4.2 LAB CKMB3 0.0-2.4 ng/mL High CKMB 6.6 Result Comment: Both the CKMB and the Relative Index must be abnormal for clinical significance. Performed By: #### HEMDF, CKMBS, CMP3, MG3, [id number] #### [facility] [address] [place] [phone] CKMB SCREEN Collected: 05/09/2018 Status: F Source: [facility] 7:39 PM SYSTEM REPOSITORY TYPE CODE TESTS RESULT OUT OF RANGE REFERENCE UNITS LAB CK3 30-170 U/L High CK 201 Performed By: #### CKMBS, [id number] #### [facility] [address] [place] [phone] CKMB FRACTIONATION Collected: 05/09/2018 Status: F Source: [facility] 7:39 PM SYSTEM REPOSITORY TYPE CODE TESTS RESULT OUT OF REFERENCE UNITS RANGE LAB RI3 0.0-3.0 NA High Relative Index 5.0 LAB CKMB3 0.0-2.4 ng/mL High CKMB 10.1 Result Comment: Both the CKMB and the Relative Index must be abnormal for clinical significance. Performed By: #### CKMBS, [id number] #### [facility] [address] [phone] ECHO COMPLETE W/WO Observed: 05/09/2018 Status: F Source: [facility] 9:30 AM SYSTEM REPOSITORY Patient Name: JONATHAN MOISE Ultrasound Exam Date/Time 05/09/2018 10:59:39 EDT Exam Echo Complete w/wo Contrast Ordering Physician ANDREA VALADEZ Accession Number [id number] Reason For Exam STEMI Report TRANSTHORACIC ECHOCARDIOGRAM PATIENT: Jonathan Moise STUDY DATE: 05/09/2018 : 1950 AGE: 67 HT/WT: 167.6 cm (66 70.3 kg (154.7 in) lb) GENDER: F BP: 144 / 72 LOCATION: [facility] PATIENT Inpatient [facility] STATUS: *ORDERING PHYSICIAN: * Andrea Valadez *READING PHYSICIAN: * Antonio *TERRITORY REPRESENTATIVE: * Thais Bell MD RDMS,AB,RDCS,AE, PE, RVT,VT --- INDICATIONS: STEMI. --- CONCLUSIONS SUMMARY: 1. Left ventricle: Systolic function is normal by the biplane method of disks. The estimated ejection fraction is 62%. There are no regional wall motion abnormalities. 2. Left atrium: The atrium is mildly dilated. 3. Mitral valve: There is trivial, less than 1+ regurgitation. 4. Aortic valve: Probably trileaflet; mildly thickened, mildly calcified leaflets. 5. Tricuspid valve: There is trivial, less than 1+ regurgitation. 6. Pulmonic valve: Structurally normal valve. --- STUDY DATA: Complete transthoracic echocardiogram. Procedure: Image quality was poor. Intravenous imaging enhancement (Definity) was administered to opacify the chamber. Definity lot #: [id number]. M-mode, complete 2D, complete spectral Doppler, and color flow Doppler images were acquired and archived for permanent storage and are available for subsequent review. Study status: Routine. Patient status: Inpatient. --- FINDINGS LEFT VENTRICLE: Average LV Global Longitudinal Strain is -21 The cavity size is normal. Wall thickness is normal. Systolic function is normal by the biplane method of disks. The estimated ejection fraction is 62%. There are no regional wall motion abnormalities. RIGHT VENTRICLE: The cavity size is normal. Wall thickness is normal. Systolic function is normal. Right ventricular systolic pressure is within the normal range. VENTRICULAR SEPTUM: There is no evidence of a ventricular septal defect. LEFT ATRIUM: The atrium is mildly dilated. RIGHT ATRIUM: The atrium is normal in size. ATRIAL SEPTUM: Color Doppler shows no evidence of shunt. MITRAL VALVE: Structurally normal valve. Doppler: There is trivial, less than 1+ regurgitation. Peak gradient (D): 3 mm Hg. AORTIC VALVE: Not well visualized. Probably trileaflet; mildly thickened, mildly calcified leaflets. Doppler: There is no regurgitation. TRICUSPID VALVE: Not well visualized. Structurally normal valve. Doppler: There is trivial, less than 1+ regurgitation. PULMONIC VALVE: Not well visualized. Structurally normal valve. Doppler: There is no regurgitation. AORTA: The aorta is normal. PULMONARY ARTERY: Main pulmonary artery: Normal. PERICARDIUM: There is no pericardial effusion. SYSTEMIC VEINS: Inferior vena cava: The IVC collapses by greater than 50% with inspiration. --- Measurements Left ventricle Value Reference Longitudinal strain, 2D 20.67 % --------- LV ID, ED 4.6 cm 3.9 - 5.3 LV ID, ES 3.1 cm --------- LV PW thickness, ED (H) 1.1 cm 0.6 - 0.9 LV end-diastolic volume, 1-p A4C (H) 108 ml 56 - 104 LV end-systolic volume, 1-p A4C 44 ml 19 - 49 LV end-diastolic volume, 2-p 98 ml 56 - 104 LV end-systolic volume, 2-p 38 ml 19 - 49 LV ejection fraction, 2-p 62 % >=55 Ventricular septum Value Reference IVS thickness, ED (H) 1.3 cm 0.6 - 0.9 LVOT Value Reference LVOT ID, A-P 2.0 cm --------- Left atrium Value Reference LA volume/bsa, ES, 2-p 36 ml/m2 --------- Mitral valve Value Reference Mitral E-wave peak velocity 0.8 m/sec --------- Mitral A-wave peak velocity 1.1 m/sec --------- Mitral deceleration time 228 ms --------- Mitral peak gradient, D 3 mm Hg --------- Mitral E/A ratio, peak 0.8 --------- Right atrium Value Reference RA area, ES, A4C 17 cm2 10 - 18 Right ventricle Value Reference RV ID, minor axis, ED, A4C mid 3.2 cm 2.0 - 3.5 Legend: (L) and (H) dominic values outside specified reference range. Electronically signed by Antonio Bell MD 05/09/2018 13:27 Final Dictated: 05/09/2018 1:27 pm Dictating Physician: ANTONIO BELL Signed Date and Time: 05/09/2018 1:27 pm Signed by: ANTONIO BELL CKMB SCREEN Collected: 05/09/2018 Status: F Source: [facility] 7:02 AM SYSTEM REPOSITORY TYPE CODE TESTS RESULT OUT OF RANGE REFERENCE UNITS LAB CK3 30-170 U/L High CK 268 Performed By: #### CKMBS, [id number] #### [facility] [address] [place] [address] CKMB FRACTIONATION Collected: 05/09/2018 Status: F Source: [facility] 7:02 AM SYSTEM REPOSITORY TYPE CODE TESTS RESULT OUT OF REFERENCE UNITS RANGE LAB RI3 0.0-3.0 NA High Relative Index 8.0 LAB CKMB3 0.0-2.4 ng/mL High CKMB 21.4 Result Comment: Both the CKMB and the Relative Index must be abnormal for clinical significance. Performed By: #### CKMBS, [id number] #### [facility] [address] [place] [phone] HEMOGRAM W/ AUTODIFF Collected: 05/09/2018 Status: F Source: [facility] 1:08 AM SYSTEM REPOSITORY TYPE CODE TESTS RESULT OUT OF REFERENCE UNITS RANGE LAB IWBC 3.6-10.7 10*3/uL WBC Normal 8.9 LAB RBC 3.80-5.20 10*6/uL RBC Normal 4.01 LAB HGB 11.7-16.0 g/dL Hemoglobin Normal 12.6 LAB HCT 35.0-47.0 % Hematocrit Normal 37.5 LAB MCV 79.0-98.0 fL MCV Normal 93.5 LAB MCH 26.0-34.0 pg MCH Normal 31.3 LAB MCHC 32.0-36.0 % MCHC Normal 33.5 LAB RDW 11.5-14.5 % RDW Normal 13.7 LAB PLT 140-440 10*3/uL Platelet Normal 267 LAB MPV 7.4-10.4 fL MPV Normal 8.5 LAB GRAN% 40.0-80.0 % Granulocytes Normal 72.8 LAB LYMP% 20.0-40.0 % Low Lymphocytes 17.4 LAB MONO% 2.0-10.0 % Monocytes Normal 7.1 LAB EOS% 1.0-6.0 % Eosinophils Normal 1.8 LAB BAS% 0.0-2.0 % Basophils Normal 0.9 LAB ANC 1.8-7.0 10*3/uL Abs Normal Neutrophile Cnt 6.4 LAB ALC 1.0-4.3 10*3/uL Abs Lymph Cnt Normal 1.5 LAB AMC 0.0-0.8 10*3/uL Abs Monocyte Normal Cnt 0.6 LAB AEC 0.0-0.5 10*3/uL Abs Eosin Cnt Normal 0.2 LAB ABC 0.0-0.2 10*3/uL Abs Baso Cnt Normal 0.1 Performed By: #### HEMDF, CKMBS, CMP3, MG3, TROPN, [id number] #### [facility] [address] [place] [address] CKMB SCREEN Collected: 05/09/2018 Status: F Source: [facility] 1:08 AM SYSTEM REPOSITORY TYPE CODE TESTS RESULT OUT OF RANGE REFERENCE UNITS LAB CK3 30-170 U/L High CK 230 Performed By: #### HEMDF, CKMBS, CMP3, MG3, TROPN, [id number] #### [facility] [address] [place] [phone] COMP METABOLIC PANEL Collected: 05/09/2018 Status: F Source: [facility] 1:08 AM SYSTEM REPOSITORY TYPE CODE TESTS RESULT OUT OF RANGE REFERENCE UNITS LAB NA3 137-145 mmol/L Sodium Normal 139 LAB K3 3.5-5.1 mmol/L Normal Potassium 4.0 LAB CL3 98-107 mmol/L High Chloride 108 LAB CO23 22-30 mmol/L Carbon Normal Dioxide 23 LAB ANIN3 NA Anion Gap 8 LAB GLUC3 70-100 mg/dL High Glucose 111 LAB BUN3 7-20 mg/dL Urea Normal Nitrogen 11 LAB CRET3 0.52-1.25 mg/dL Normal Creatinine 0.74 LAB GF3BR >60 mL/min eGFR > 60.0 LAB GF3WR >60 mL/min eGFR OTHER > 60.0 Result Comment: Source- MDRD equation with creatinine calibration to IDMS(NKDEP) eGFR not recommended for drug dose adjustment LAB CA3 8.4-10.4 mg/dL Calcium Normal 9.1 LAB ALB3 3.5-5.0 g/dL Albumin, Serum Normal 3.9 LAB TP3 6.3-8.2 g/dL Total Protein Normal 6.3 LAB BILT3 0.2-1.3 mg/dL Normal Bilirubin,Total 0.4 LAB ALKP3 38-126 U/L Alkaline Normal Phosphatase 71 LAB ALT3 13-69 U/L ALT (SGPT) Normal 26 LAB AST3 15-46 U/L AST (SGOT) Normal 42 Performed By: #### HEMDF, CKMBS, CMP3, MG3, TROPN, [id number] #### [facility] [address] [place] [phone] MAGNESIUM Collected: 05/09/2018 Status: F Source: [facility] 1:08 AM SYSTEM REPOSITORY TYPE CODE TESTS RESULT OUT OF RANGE REFERENCE UNITS LAB MG3 1.6-2.3 mg/dL Normal Magnesium 2.0 Performed By: #### HEMDF, CKMBS, CMP3, MG3, TROPN, [id number] #### [facility] [address] [phone] TROPONIN I Collected: 05/09/2018 Status: F Source: [facility] 1:08 AM SYSTEM REPOSITORY TYPE CODE TESTS RESULT OUT OF REFERENCE UNITS RANGE LAB TROP4 0.000-0.034 ng/mL High Troponin I 11.700 Result Comment: 0.046 - 0.400 = Indeterminate > 0.400 = Consider Myocardial Injury Performed By: #### HEMDF, CKMBS, CMP3, MG3, TROPN, [id number] #### [facility] [address] [address] CKMB FRACTIONATION Collected: 05/09/2018 Status: F Source: [facility] 1:08 AM SYSTEM REPOSITORY TYPE CODE TESTS RESULT OUT OF REFERENCE UNITS RANGE LAB RI3 0.0-3.0 NA High Relative Index 8.3 LAB CKMB3 0.0-2.4 ng/mL High CKMB 19.1 Result Comment: Both the CKMB and the Relative Index must be abnormal for clinical significance. Performed By: #### HEMDF, CKMBS, CMP3, MG3, TROPN, [id number] #### [facility] [address] [phone] DRUGS OF ABUSE Collected: 05/08/2018 Status: F Source: [facility] 11:37 PM SYSTEM REPOSITORY TYPE CODE TESTS RESULT OUT OF REFERENCE UNITS RANGE LAB AMP3 NA Amphetamines, Ur Negative LAB BARB3 NA Barbiturates, Ur Negative LAB BENZ3 NA Benzodiazepines, Positive Ur LAB COC3 NA Cocaine, Ur Negative LAB METH3 NA Methadone, Ur Negative LAB OPI3 NA Opiates, Ur Positive LAB OXY3 NA Oxycodone/Oxymorph Negative ine,Ur LAB PCP3 NA Phencyclidine (PCP), Ur Negative Result Comment: The expected value for all of the drugs listed above is Negative. The following drugs or drug groups have been screened for by Immunoassay at the following thresholds: Amphetamine class (1000 ng/mL), Barbiturates (200 ng/mL), Benzodiazepines (200 ng/mL), Cocaine (300 ng/mL), Methadone (300 ng/mL), Opiates (300 ng/mL), Oxycodone (100 ng/mL), and PCP (25 ng/mL). NOTE: These results are for medical treatment only. Analysis performed using non-forensic procedures. Performed By: #### [id number] #### [facility] [address] HEMOGLOBIN A1C Collected: 05/08/2018 Status: F Source: [facility] 6:18 PM SYSTEM REPOSITORY TYPE CODE TESTS RESULT OUT OF RANGE REFERENCE UNITS LAB A1C2 4.0-5.7 % Normal Hemoglobin A1C 5.5 Result Comment: --HgbA1C levels may not be accurate in patients who have renal disease, received recent blood transfusions, are anemic, or who have dyshemoglobinemia. LAB EAG2 mg/dL Estimated Avg Glucose 111 Performed By: #### HA1C2, LIPD2, TROPN, APTT, TSH5, CKMBS, [id number] #### [facility] [address] LIPID PANEL Collected: 05/08/2018 Status: F Source: [facility] 6:18 PM SYSTEM REPOSITORY TYPE CODE TESTS RESULT OUT OF RANGE REFERENCE UNITS LAB 3CHOL < 200 mg/dL Normal Cholesterol 167 LAB 3TRIG <150 mg/dL Normal Triglyceride 65 LAB HDLC 40-60 mg/dL Low HDL Cholesterol 37 LAB LDL4 <100 mg/dL Low Density Abnormal Lipoprotein 117 LAB CHLHD NA Chol/HDL 5 Result Comment: Ref Range: < 3 Low Risk for CHD 3-6 Mod Risk for CHD > 6 High Risk for CHD Performed By: #### HA1C2, LIPD2, TROPN, APTT, TSH5, CKMBS, [id number] #### [facility] [address] [place] [address] TROPONIN I Collected: 05/08/2018 Status: F Source: [place] 6:18 PM SYSTEM REPOSITORY TYPE CODE TESTS RESULT OUT OF REFERENCE UNITS RANGE LAB TROP4 0.000-0.034 ng/mL High Troponin I 1.100 Result Comment: 0.046 - 0.400 = Indeterminate > 0.400 = Consider Myocardial Injury Performed By: #### HA1C2, LIPD2, TROPN, APTT, TSH5, CKMBS, MBF33 #### [facility] [address] APTT Collected: 05/08/2018 Status: F Source: [facility] 6:18 PM SYSTEM REPOSITORY TYPE CODE TESTS RESULT OUT OF RANGE REFERENCE UNITS LAB PTTA 20.0-30.5 s High APTT 119.9 Result Comment: NOTE: The therapeutic time for Heparin anticoagulation, based on Xa activity inhibition, is an APTT of 46-80 seconds. Performed By: #### HA1C2, LIPD2, TROPN, APTT, TSH5, CKMBS, [id number] #### [facility] [place], [place] THYROID STIM. Collected: 05/08/2018 Status: F Source: [facility] HORMONE 6:18 PM SYSTEM REPOSITORY TYPE CODE TESTS RESULT OUT OF RANGE REFERENCE UNITS LAB TSH5 0.465-4.680 u[IU]/mL Normal Thyroid Stim. 0.982 Hormone Performed By: #### HA1C2, LIPD2, TROPN, APTT, TSH5, CKMBS, MBF33 #### [facility] [address] [place] [address] CKMB SCREEN Collected: 05/08/2018 Status: F Source: [place] 6:18 PM SYSTEM REPOSITORY TYPE CODE TESTS RESULT OUT OF RANGE REFERENCE UNITS LAB CK3 30-170 U/L Normal CK 97 Performed By: #### HA1C2, LIPD2, TROPN, APTT, TSH5, CKMBS, MBF33 #### [facility] [address] [place] [address] CKMB FRACTIONATION Collected: 05/08/2018 Status: F Source: [place] 6:18 PM SYSTEM REPOSITORY TYPE CODE TESTS RESULT OUT OF REFERENCE UNITS RANGE LAB RI3 0.0-3.0 NA High Relative Index 6.4 LAB CKMB3 0.0-2.4 ng/mL High CKMB 6.2 Result Comment: Both the CKMB and the Relative Index must be abnormal for clinical significance. Performed By: #### HA1C2, LIPD2, TROPN, APTT, TSH5, CKMBS, [id number] #### [facility]. [place], [place] ACT,WHOLE BLOOD Collected: 05/08/2018 Status: F Source: [facility] 5:25 PM SYSTEM REPOSITORY TYPE CODE TESTS RESULT OUT OF RANGE REFERENCE UNITS LAB ACTB 90-134 s High ACT,Whole 258 Blood Result Comment: ACTB Performed by [employer] EliteHOLLIEIA ID: [id number] [facility] [place] ACT testing is not intended for patients taking aprotonin, patients with hematocrits of <20% or >55%, patients using other types of anticoagulation medications, and patients with Lupus Anticoagulant. Performed By: #### ACTB #### [facility] [address] [place] [phone] DIAGNOSTIC CATHERIZATION Observed: 05/08/2018 Status: F Source: [facility] 4:53 PM SYSTEM REPOSITORY Patient Name: JONATHAN MOISE [facility] [employer] Exam Date/Time 05/08/2018 16:18:34 EDT Exam Diagnostic Catherization Ordering Physician MD LEVY PETER Accession Number [id number] Reason For Exam ST elevation (STEMI) myocardial infarction involving other coronary artery of inferior wall Report [facility] --- CARDIAC CATHETERIZATION Patient: Jonathan Moise Procedure Date: 05/08/2018 : 1950 Age: 67 Gender: F Patient Type: Outpatient Procedure physician: Tariq Levy MD Fellow: Referring Physician: Tariq Levy MD --- INDICATIONS: ST elevated myocardial infarction. --- Procedures performed: - Left coronary angiography. - Right coronary angiography. - Left heart catheterization. - Percutaneous intervention on the 100% stenosis in the proximal right coronary. Balloon angioplasty. Interventional IVUS examination. Stent placement. Balloon angioplasty. --- SUMMARY: 1. 67y/o female without prior cardiac history, here with acute chest pain and inferior ST elevation. IMPRESSIONS: 1. Acute occlusion of the proximal RCA. 2. Mild CAD of the LAD and circumflex. 3. No aortic stenosis. 4. Successful DRUG ELUTING STENT placed to the 100% lesion of the proximal RCA with minimal residual stenosis. -IVUS used to appropriately size stent. RECOMMENDATIONS: 1. Admit to CCU. 2. Aspirin 81mg daily, lifelong. 3. Dual antiplatelet therapy for minimum 12 months. 4. Continued aggressive risk factor modification. 5. Smoking cessation critical. 6. Echo to assess LV function. --- HISTORY: PMH: Chronic lung disease. Risk factors: Current tobacco use. Hypertension. Allergies: OTHER allergy. --- PROCEDURE IN DETAIL: Study status: Cardiac cath: emergent. Consent: The risks, benefits, and alternatives to the procedure and sedation were explained to the patient and informed consent was obtained. Fluoroscopy time: Fluorosco py time: 12.1 min. Fluoroscopy dose: Fluoroscopy dose: 180.7 cGy. Locatio n: Catheterization laboratory. PROCEDURE: 1. Initial setup. The patient was brought to the laboratory. A baseline ECG was recorded. Intravenous access was obtained. Surface ECG leads, blood pressure measurements, and pulse oximetric signals were monitored. 2. Skin preparation. The planned puncture sites were prepped and draped in the usual sterile manner. 3. Local anesthesia. 1% Lidocaine was administered. 4. Right radial artery access. A 6Fr x 11cm Prelude [place] sheath was advanced into the vessel. 5. Selective left coronary angiography. A 5Fr x 100cm JL3.5 catheter was advanced into the left coronary vessel ostium under fluoroscopic guidance. Contrast was injected. Images were obtained in multiple projections. 6. Selective right coronary angiography. A 6Fr AR Guide catheter was advanced into the right coronary vessel ostium under fluoroscopic guidance. Contrast was injected. Images were obtained in multiple projections. 7. Left heart catheterization. A 6Fr AR Guide catheter was advanced across the aortic valve to the left ventricle under fluoroscopic guidance. 8. Activated clotting time measurement. ACT was 258 sec. 9. Right radial artery hemostasis. The sheath was removed. Mechanical compression was applied. 1st lesion intervention: Percutaneous intervention on the 100% stenosis in the proximal right coronary. 1. Guider placement. A 6Fr x 100cm Launcher AR1 guiding catheter was placed. 2. Wire placement. A .014/190cm Hi-Torque Whisper MS wire was placed. 3. Guider placement. A 6Fr x 150cm Guidezilla II guiding catheter was placed. 4. Balloon angioplasty. A 2.5 mm (D) x 20 mm (L), Trek RX balloon was employed. The balloon was placed across the lesion and given a single inflation with a maximum inflation pressure of 12 rigoberto. 5. Intravascular ultrasound evaluation, using a .014 [facility] catheter. 6. Stent placement. A 3 mm (D) x 33 mm (L), Xience Yenni RX (drug eluting) stent was advanced across the lesion and deployed with a single inflation and a maximum pressure of 16 rigoberto. 7. Balloon angioplasty. A 4mm x 20mm NC Trek RX balloon was employed. The balloon was placed across the lesion and given a single inflation with a maximum inflation pressure of 10 rigoberto. STUDY COMPLETION: The estimated blood loss was 10 ml. All catheters inserted during the procedure were removed. The patient tolerated the procedure well and was discharged from the lab. There were no complications. Administered medica tions: Verapamil (Isoptin, Calan, Covera), 2.5mg, VERAPAMIL. NITROGLYCERIN ( IA), 200mcg, NITROGLYCERIN (IA). Atropine, 0.5mg, ATROPINE. Midazolam, 1mg, V ERSED. Fentanyl, 25mcg, FENTANYL. Nitroglycerin, 300mcg, into the coronary ar prisca, NITROGLYCERIN (IC). Ondansetron (Zofran), 4mg, ZOFRAN. Heparin, for a t otal dose of 5000units, HEPARIN. Contrast: 1. ISOVUE 300MG/CC 106 ml (total dose). --- CORONARY ARTERIES: The coronary circulation is right dominant. The left main bifurcates normally into the LAD and circumflex. The left anterior descending g rachel rise to 1 diagonal and 1 septal. The left circumflex gives rise to 1 obtus e marginal. The right coronary gives rise to 1 RV marginal and 1 posterolateral . LAD: Minor luminal irregularities. Left circumflex: Minor luminal irregularities. Right coronary: Proximal vessel lesion: There is a 100% stenosis. There is JEREMY grade 0 flow (no flow) across the lesion. The lesion was stented (see 1st lesion intervention). Following intervention, the lesion has a residual stenosi s of 0%, an excellent angiographic appearance, and JEREMY grade 3 flow (brisk ian w). There were no site complications. AORTIC VALVE: There is no stenosis. HEMODYNAMICS: + + + !Stage description !Condition1:Room Air -! + + + !LV pressure s/ed !165/12 ! + + + !Arterial pressure s/d (m)!85/42 (62) ! + + + Prepared and electronically signed by Tariq Levy MD 05/09/2018 06:58 Final Dictated: 05/09/2018 6:58 am Dictating Physician: MD LEVY PETER Signed Date and Time: 05/09/2018 6:58 am Signed by: MD LEVY PETER CR CHEST PORTABLE Observed: 05/08/2018 Status: F Source: [facility] 4:07 PM SYSTEM REPOSITORY Patient Name: JONATHAN MOISE Diagnostic Radiology Exam Date/Time 05/08/2018 15:45:00 EDT Exam CR Chest Portable Ordering Physician MD ANUPAMA, JORGE Accession Number [id number] CPT4 Codes 53621 () Reason For Exam epigastric pain Report EXAM TYPE: RADIOLOGIC EXAMINATION, CHEST, SINGLE VIEW FRONTAL (CXR SINGLE VIEW) EXAM DATE AND TIME: 05/08/2018 3:45 PM EDT INDICATION: Epigastric pain COMPARISON: 06/17/2016 TECHNIQUE: A single frontal view of the thorax was obtained and reviewed. Special views: None. IMPRESSION: 1. Lines/Tubes/Devices/Hardware: Monitoring leads.. (Please confirm function of any catheters.) 2. Lungs: Interstitial prominence similar to previous. Consider edema or fibrosis or both. Some atelectasis left lower lobe stable. No consolidation or major volume loss. 3. Pleura: No definite effusion. No definite pneumothorax. 4. Heart and mediastinum: Normal cardiomediastinal contours. 5. Upper abdomen: No acute process seen. Report Dictated on Final Dictating Physician: MD GARCES JOHN Signed Date and Time: 05/08/2018 4:07 pm Signed by: MD GARCES JOHN Transcribed Date and Time: 05/08/2018 4:09 HEMOGRAM W/ AUTODIFF Collected: 05/08/2018 Status: F Source: [facility] 3:32 PM SYSTEM REPOSITORY TYPE CODE TESTS RESULT OUT OF REFERENCE UNITS RANGE LAB IWBC 3.6-10.7 10*3/uL WBC Normal 7.6 LAB RBC 3.80-5.20 10*6/uL RBC Normal 4.71 LAB HGB 11.7-16.0 g/dL Hemoglobin Normal 14.3 LAB HCT 35.0-47.0 % Hematocrit Normal 43.9 LAB MCV 79.0-98.0 fL MCV Normal 93.3 LAB MCH 26.0-34.0 pg MCH Normal 30.4 LAB MCHC 32.0-36.0 % MCHC Normal 32.6 LAB RDW 11.5-14.5 % RDW Normal 13.3 LAB PLT 140-440 10*3/uL Platelet Normal 316 LAB MPV 7.4-10.4 fL MPV Normal 8.3 LAB GRAN% 40.0-80.0 % Granulocytes Normal 59.3 LAB LYMP% 20.0-40.0 % Lymphocytes Normal 31.3 LAB MONO% 2.0-10.0 % Monocytes Normal 6.2 LAB EOS% 1.0-6.0 % Eosinophils Normal 2.8 LAB BAS% 0.0-2.0 % Basophils Normal 0.4 LAB ANC 1.8-7.0 10*3/uL Abs Normal Neutrophile Cnt 4.5 LAB ALC 1.0-4.3 10*3/uL Abs Lymph Cnt Normal 2.4 LAB AMC 0.0-0.8 10*3/uL Abs Monocyte Normal Cnt 0.5 LAB AEC 0.0-0.5 10*3/uL Abs Eosin Cnt Normal 0.2 LAB ABC 0.0-0.2 10*3/uL Abs Baso Cnt Normal 0.0 Performed By: #### HEMDF, BMP3, LIPA4, PT, TROPN #### [facility] [address] [address] BASIC METABOLIC PANEL Collected: 05/08/2018 Status: F Source: [facility] 3:32 PM SYSTEM REPOSITORY TYPE CODE TESTS RESULT OUT OF RANGE REFERENCE UNITS LAB NA3 137-145 mmol/L Sodium Normal 142 LAB K3 3.5-5.1 mmol/L Normal Potassium 4.1 LAB CL3 98-107 mmol/L Chloride Normal 107 LAB CO23 22-30 mmol/L Carbon Normal Dioxide 24 LAB ANIN3 NA Anion Gap 12 LAB GLUC3 70-100 mg/dL High Glucose 130 LAB BUN3 7-20 mg/dL Urea Normal Nitrogen 13 LAB CRET3 0.52-1.25 mg/dL Normal Creatinine 0.82 LAB GF3BR >60 mL/min eGFR > 60.0 LAB GF3WR >60 mL/min eGFR OTHER > 60.0 Result Comment: Source- MDRD equation with creatinine calibration to IDMS(NKDEP) eGFR not recommended for drug dose adjustment LAB CA3 8.4-10.4 mg/dL Normal Calcium 9.6 Performed By: #### HEMDF, BMP3, LIPA4, PT, TROPN #### [facility] [address] [address] LIPASE Collected: 05/08/2018 Status: F Source: [facility] 3:32 PM SYSTEM REPOSITORY TYPE CODE TESTS RESULT OUT OF RANGE REFERENCE UNITS LAB LIPA4 23-300 U/L Normal Lipase 74 Performed By: #### HEMDF, BMP3, LIPA4, PT, TROPN #### [facility] [address] [address] PROTHROMBIN TIME Collected: 05/08/2018 Status: F Source: [facility] 3:32 PM SYSTEM REPOSITORY TYPE CODE TESTS RESULT OUT OF REFERENCE UNITS RANGE LAB PROTM 9.0-12.0 s Prothrombin Normal Time 9.7 Result Comment: . LAB INR 0.9-1.1 NA Normal INR 0.9 Result Comment: Recommended Anticoagulant Therapy: SEE BELOW ----- INR of 2.0 - 3.0 : - Prophylaxis of Venous Thrombosis (high-risk surgery) - Treatment of Venous Thrombosis - Treatment of Pulmonary Embolism (Includes tissue heart valves, Acute Myocardial Infarction to prevent systemic embolism, Valvular Heart Disease, and Atrial Fibrillation) ----- INR of 2.5 - 3.5 : - Mechanical Prosthetic Valves (high risk) - If oral anticoagulant therapy is used to prevent Myocardial Infarction Performed By: #### HEMDF, BMP3, LIPA4, PT, TROPN #### [facility] [address] [place] [address] TROPONIN I Collected: 05/08/2018 Status: F Source: [facility] 3:32 PM SYSTEM REPOSITORY TYPE CODE TESTS RESULT OUT OF RANGE REFERENCE UNITS LAB TROP4 0.000-0.034 ng/mL Normal Troponin I 0.029 Result Comment: 0.046 - 0.400 = Indeterminate > 0.400 = Consider Myocardial Injury Performed By: #### HEMDF, BMP3, LIPA4, PT, TROPN #### [facility] [address] [place] [address] DOWNTIME REPORT Observed: 03/04/2018 Status: F Source: KAREN 11:45 AM [facility] Medical Records Department [address] [place] [address] Downtime Report MR#: [id number] Acct: [id number] Name: JONATHAN MOISE Rep #: [id number] : 1950 67 From: Neto Villegas PCP: Joleen Beal Status: REG CLI This patient was seen during an EMR downtime February 15, 2018 - February 22, 2018. This patient may have a combination of paper and electronic documentation or all paper documentation. All documentation is viewable within the e-chart portion of [facility] for each patient visit. LOWER EXT ARTERIAL Observed: 02/24/2018 Status: F Source: KAREN STUDY 11:41 AM [facility] Cardiovascular Services [address] [place] [address] 02/24/18 1140 MR#: [id number] Acct: [id number] Name: JOSE MARIAJONATHAN Townsend Rep #: [id number] : 1950 67 From: Arun Alonzo MD Attending Dr: Joleen Beal Status: REG CLI Ordering Dr: Date: 02/24/18 Location: CVS Sex: F C Admitted: Arterial Study - Arterial Study Arterial Study: Date of scan 02/15/[address] Alonzo History: Known hypertension with peripheral arterial disease Interpretation: Right lower extremity with fairly normal pulsatile waveform from the thigh down to the calf ankle out through the digits duplex duplex with triphasic flow both vessels at the ankle with an PADMAJA 1.18 in the posterior tibial 0.89 of the dorsalis pedis. Digital brachial index 0.74. Next Left lower extremity with fairly normal pulsatile flow noted from the thigh down to the calf ankle out through the digits duplex again shows triphasic flow both vessels at the ankle with an PADMAJA of 1.16 of the posterior tibial 1.16 of the dorsalis pedis. Digit brachial index 0.98. Impression: 1. Right lower extremity with no evidence of significant arterial occlusive disease at rest with an PADMAJA 1.18 2. Left lower extremity with no evidence of significant arterial occlusive disease at rest with an PADMAJA 1.16 02/24/18 1141 <Electronically signed by Arun Alonzo MD> Date Arun Alonzo MD CC: Joleen Beal Date Dictated: 02/24/18 1140 Date Transcribed: 02/24/18 1140 Television Installer: EFRAIN Signed ALLERGIES ALLERGIES DATE TYPE / CODE NAME / CODE REACTION SEVERITY SOURCE 10/02/2014 Drug levofloxacin Rash Unknown [facility] Allergy/4160 /[id number]( [facility] [address](SNOMED RXNORM) Repository CT) ENCOUNTERS ENCOUNTERS ADMIT/DISCHARGE ACCOUNT NUMBER ADMITTING ENCOUNTER LOCATION SOURCE CLASS 10/01/2018/10/02/19 [id number] Lisa, Inpatient Karen Irizarry Encounter [facility] ding:[place]osa Repository : [id number]: 1 10/01/2018 [id number] Lisa, Ambulatory BMSBuilding: Karen Irizarry BMS.[facility] Repository 10/01/2018 [id number] Lisa [facility] 05/22/2018 [id number] Emergency BuildinB [facility] EDRoom: System [id number]: Repository [id number] 05/20/2018 [id number] Ambulatory [facility] System Repository 05/08/2018 [id number] Inpatient BuildinA [facility] Encounter 1CRoom: System [id number]: Repository [id number] 05/08/2018 [id number] Emergency BuildinB [facility] EDRoom: System [id number]: Repository [id number] 04/09/2018 [id number] Emergency BuildinB [facility] EDRoom: System [id number]: Repository [id number] 02/15/2018 [id number] Ambulatory [facility] ding:[facility] Repository 02/04/2018 [id number] Ambulatory [facility] System Repository PAYERS PAYERS ENCOUNTER GUARANTOR PAYER SUBSCRIBER SOURCE 10/01/2018 ANTON Townsend Primary ANTON [id number] Insurance:BASILIA JULIENOB: Community [employer] [place] [id number] 07/15/18Policy Number: Repository [id number]: 330 [id number] [phone] () Date:[id number] [address]JI: 10/01/2018 Secondary NOT GIVENUNK [place] Insurance:SELF PAY [facility] Number: Effective Repository Date:2018-10-01 10/01/2018 ANTON Townsend Primary ANTON [id number] Insurance:BASILIA HAMILTON EUNICECODYOB: Community [employer] IN [facility] [id number] [place] [address] 07/15/18Policy Number: Repository [id number]: 330 [id number] [phone] () Date:3017-05-26WM [address] [id number]: 10/01/2018 Secondary NOT GIVENUNK [place] Insurance:SELF PAY [facility] Number: Effective Repository Date:2018-10-01 10/01/2018 ANTON J Primary ANTON J [place] [id number] S Insurance:HUMANA MCR WOLFEDOB: [facility] HMO IN [facility] [id number] [place] 07/15/18Poly Number: Repository [id number]: [phone] [id number] [phone] (HP) Date:[id number] [address] [place] [id number]: 10/01/2018 Secondary NOT GIVENUNK [place] Insurance:SELF PAY [facility] Number: Effective Repository Date:2018-10-01 05/22/2018 Jonathan J Primary [facility] J [facility] WolfeDOB: Insurance:MedicarePol WolfeDOB: System S icy Number: Effective [id number] Repository [place] Date: [place], [place] [address]Jtf: () 05/22/2018 Secondary Jonathan J [facility] Insurance:MedicarePol WolfeDOB: System icy Number: Effective [id number] Repository Date: 05/20/2018 Jonathan J Primary Jonathan J [facility] WolfeDOB: Insurance:MedicarePol WolfeDOB: System S icy Number: Effective [id number] Repository [place] Date: [place], [place] [address]Tfb: () 05/20/2018 Secondary Jnoathan J [facility] Insurance:MedicarePol WolfeDOB: System icy Number: Effective [id number] Repository Date: 05/08/2018 Jonathan J Primary Jonathan J [facility] WolfeDOB: Insurance:MedicarePol WolfeDOB: System S icy Number: Effective [id number] Repository [place] Date: [place], [place] [address]Vdc: () 05/08/2018 Secondary Jonathan J [facility] Insurance:MedicarePol WolfeDOB: System icy Number: Effective [id number] Repository Date: 05/08/2018 Jonathan J Primary Jonathan J [facility] WolfeDOB: Insurance:MedicarePol WolfeDOB: System S icy Number: Effective [id number] Repository [place] Date: [place], [place] [address]Pgm: () 05/08/2018 Secondary Jonathan J [facility] Insurance:MedicarePol WolfeDOB: System icy Number: Effective [id number] Repository Date: 04/09/2018 Jonathan J Primary Jonathan J [facility] WolfeD[facility]: Insurance:MedicarePol WolfeDOB: System S icy Number: Effective [id number] Repository [place] Date: [place], [place] [address]Pzy: () 04/09/2018 Secondary Jonathan J [facility] Insurance:MedicarePol WolfeDOB: System icy Number: Effective [id number] Repository Date: 02/15/2018 Jonathan J Primary Jonathan J [place] [id number] S Insurance:MEDICARE WolfeDOB: [facility] PART A [facility] [id number] [place] Number: Repository [id number]: [phone] [id number] [phone] () Date:2018-02-03 02/15/2018 Secondary NOT GIVENUNK [place] Insurance:SELF PAY [facility] Number: Effective Repository Date:2018-02-03 02/04/2018 Jonathan J Primary Jonathan J [facility] WolfeDOB: Insurance:MedicarePol WolfeDOB: System S icy Number: Effective [id number] Repository [place] Date: [place], [place] [address]Evz: () 02/04/[address] [facility] Insurance:MedicarePol WolfeDOB: System icy Number: Effective [id number] Repository Date:
== END 2018-10-02 11:04 | disposition home or self-care (01) | DRG 310 ==
LOC: ED 19:16 → PCU 20:08
PROVIDERS: Admitting Provider Family Medicine; Emergency Provider Emergency Medicine; Visit Provider Internal Medicine
DX: I48.91 Unspecified atrial fibrillation (principal); I10 Essential (primary) hypertension; F17.210 Nicotine dependence, cigarettes, uncomplicated; I25.10 Atherosclerotic heart disease of native coronary artery without angina pectoris; Z95.5 Presence of coronary angioplasty implant and graft; Z79.899 Other long term (current) drug therapy; G25.3 Myoclonus; K20.9 Esophagitis, unspecified
CPT/HCPCS: 36415; 71045; 78452; 80048; 80053; 80061; 82248; 84443; 84484; 85025; 85027; 85610; 85730; 93005; 93017; 94640; 99284; 99406; A9500; J7030; J7040; A4216; J2785

== ENCOUNTER 2018-10-28 20:56 | Emergency (ER) | payer MEDICARE, SELFPAY ==
[2018-10-01 20:39] VITALS: BMI 23.8
[2018-10-28 20:57] VITALS: BP 157/87; PULSE 83; RESP 14; TEMP 37.2; O2SAT 98; BMI 23.8
--- NOTE | 2018-10-28 21:02 | RAD_ITS ---
STUDY: X-RAY CHEST REASON FOR EXAM: Female, 68 years old. Chest pain TECHNIQUE: Single frontal view COMPARISON: October 01, 2018 FINDINGS: The lungs are expanded. Mild interstitial prominence. Left basilar atelectasis. Normal size heart. Normal mediastinum and sheron. Normal visualized pulmonary arteries. Calcified aortic arch and descending thoracic aorta. Mild degenerative changes of the thoracic spine. Normal visualized ribs, clavicles, and shoulders. There is no demonstrated abnormality of the visualized soft tissue structures of the upper abdomen. RAD/Chest 1 View (Portable) IMPRESSION: Mild interstitial prominence. Left basilar atelectasis. Electronically Signed: Zachary Snyder DO at 21:29 EST Tel [phone], Service support ,
--- NOTE | 2018-10-28 21:02 | EKG12_ITS ---
Test Reason : GENERAL ILLNESS Blood Pressure : / mmHG Vent. Rate : 079 BPM Atrial Rate : 079 BPM P-R Int : 116 ms QRS Dur : 080 ms QT Int : 440 ms P-R-T Axes : 028 026 043 degrees QTc Int : 504 ms Normal sinus rhythm Possible Left atrial enlargement Nonspecific ST abnormality Prolonged QT Abnormal ECG Confirmed by MIGUEL GRIMALDO, APRIL ([id number]), medical editor TRE MAURICIO ([id number]) on 11/02/2018 10:30:59 AM Referred By: AZUCENA Confirmed By:APRIL RIVERA MD
[2018-10-28 21:15] VITALS: BP 154/89; PULSE 79; RESP 23; O2SAT 95
--- NOTE | 2018-10-28 21:21 | ED.VISSUMM ---
- ER Visit Summary Date of Service: 10/28/18 Chief Complaint: [] Generalized fatigue worsening myoclonic jerking, and burning chest pain History of Present Illness: The patient is a 68 F [] history of chronic myoclonic jerking for years, history of cardiac stents, reports that basically today she woke up with nonspecific symptoms of not feeling well had a slight cough, then felt that her myoclonic jerking was worse and she felt as if when she walks she was walking on then she had a very short episode of burning chest pain that was like her prior angina but it resolved the sense of jerking persisted she indicates the myoclonic jerks have been evaluated extensively there is no clear exhalation for them, but they get worse when she is nervous she indicates she has generally not felt well in a nonspecific fashion. She has had no other sense of anginal chest pain, no fever slight cough today no abdominal pain normal bowel bladder habits no numbness weakness or constipation she is eating and drinking well, she does not experience anginal type chest pain with exertion Physical Examination: [] Her vital signs are all within normal limits She is in no distress she does have nonspecific myoclonic jerks sitting in the bed she will simply jerk in a nonspecific fashion they involve her upper extremities and lower extremities and torso she is awake and alert when these happens in the family the patient assures me this is her chronic state but that these jerking spells seem more prominent today General, no distress resting comfortably HEENT is generally unremarkable The neck is supple no adenopathy Cardiovascular, regular rate and rhythm Lungs, clear bilateral Abdomen, soft nontender Extremities, no clubbing cyanosis or edema Neurologic, awake alert answering questions appropriately moving all 4 extremities I did stand and walk her and she was able to walk without difficulty Test Results: [] Emergency Department Course and Treatment: [] EKG shows a sinus rhythm at this time given all the above screening labs are obtained she assures me she is neurologically at her baseline she has been extensively evaluated for the myoclonic jerking I do not see an indication for CT scan, Treatment Plan: [] Patient's EKG screening labs UA are all unremarkable, back to reevaluate her she states she is resting cuffing the bed feels a baseline daughter is in the room with her I discussed the fact that the exact etiology of all the symptoms were unclear we discussed that given the chest burning or other symptoms we could arrange for admission for further management concept of cardiac disease could be life-threatening etc. she indicates she did not wish to be admitted to the hospital related to cost she preferred outpatient management and she was feeling well want to go home and agreed to see her doctors as soon as possible and return for change in symptoms Disposition: [] Home stable Impression: [] Generalized fatigue, exacerbation of chronic myoclonic jerking condition This note was generated with [employer] dictation software. It may contain incorrect words, spelling, and punctuation that were not noted in review of the chart prior to signing ED Disposition - Plan for ED Patient: Referrals: Care Physician,No Primary [Primary Care Provider] -
[2018-10-28 21:52] LABS: Bacteria 0 SEEN /hpf (None Seen); Mucous, Urine 0 SEEN /hpf (<or=2+); Red Blood Cells-Urine 0 SEEN /hpf (0-5)
[2018-10-28 21:53] LABS: Color, Urine Yellow (Yellow); Glucose, Dipstick Normal (Normal); Ketone-Dipstick Negative (Negative); Leukocyte Esterase-Dipstick 500 /ul (Negative); Nitrite-Dipstick Negative (Negative); Occult Blood-Urine 10 /ul (Negative); Protein-Dipstick 15 mg/dl (Negative); Urine Bilirubin Dipstick Negative (Negative); Urine Clarity Clear (Clear); Urine Urobilinogen 1 mg/dl (Normal)
[2018-10-28 22:03] LABS: AST(SGOT) 18 U/L (15-37); Alanine Aminotransfer ALT/SGPT 19 U/L (13-56); Albumin, Serum 3.6 g/dL (3.2-5.0); Alkaline Phosphatase 94 U/L (45-117); Anion Gap 7 (5-15); BUN 11 mg/dL (7-18); BUN/Creat Ratio 14.3 RATIO (10-20); Bilirubin, Direct 0.09 mg/dL (0.00-0.30); Calcium,Total 8.4 mg/dL (8.5-10.1); Chloride 110 mmol/L (98-107); Creatinine, Serum 0.77 mg/dL (0.55-1.02); EST Glomerular Filtration Rate 80 mL/min (>60); Est Glom Filt Rate - Afr Amer 96 mL/min (>60); Estimated Creatinine Clearance 51.11 ml/min; Globulin 3.7 g/dL (2.2-4.2); Glucose 102 mg/dL (74-106); Lipase 105 U/L (73-393); Potassium 3.7 mmol/L (3.5-5.1); Protein, Total 7.3 g/dL (6.4-8.2); Sodium Level 141 mmol/L (136-145)
[2018-10-28 22:05] LABS: Squamous Epithelial Cells - UA 5-10 SEEN /hpf (5-10); White Blood Cells 0-5 SEEN /hpf (0-5)
[2018-10-28 22:17] LABS: Absolute Lymphocyte Count 1.67 X10^3/ul (0.83-4.51); Absolute Neutrophil Count 7.1 X10^3/uL (2.0-7.7); Basophil# 0.03 X10^3/uL; Basophil% 0.3 % (0-1); Eosinophil# 0.18 X10^3/uL; Eosinophils% 1.8 % (0-5); Hematocrit 39.2 % (37-47); Hemoglobin 12.5 g/dl (12.0-15.0); Lymphocyte # 1.67 X10^3/ul (4.0); Lymphocyte % 17.1 % (19-41); Mean Corp Hgb Conc 31.9 g/gl (32-36); Mean Corpuscular Hgb 30.6 pg (27.0-32.0); Mean Corpuscular Volume 96.1 fL (81-99); Mean Platelet Vol. 10.3 fl (6.2-12.0); Monocyte# 0.75 X10^3/uL; Monocyte% 7.7 % (0-10); Neutrophil # 7.12 X10^3/uL (2.7-7.7); Neutrophil % 72.9 % (47-70); Platelet Count 290 K/mm3 (150-450); RBC Distribution Width CV 14.4 % (11.6-14.6); RBC Distribution Width SD 50.9 fl (35.1-43.9); Red Blood Count 4.08 M/mm3 (4.2-5.4); White Blood Count 9.8 K/mm3 (4.4-11.0)
[2018-10-28 22:24] LABS: POSITIVE COUNT NO; POSITIVE DIFFERENTIAL NO; POSITIVE MORPHOLOGY NO
--- NOTE | 2018-10-28 22:41 | ED.DEP ---
ED Disposition - Plan for ED Patient: Instructions: ED Chest Pain Atypical Unkn Cause, ED Weakness [facility] Referrals: Care Physician,No Primary [Primary Care Provider] -
[2018-10-28 22:51] VITALS: BP 127/86; PULSE 69; RESP 18
== END 2018-10-28 22:52 | disposition home or self-care (01) ==
LOC: ED 21:37
PROVIDERS: Emergency Provider Emergency Medicine
DX: G25.3 Myoclonus (principal); R53.83 Other fatigue; R53.1 Weakness; R07.89 Other chest pain; R05 Cough; I25.10 Atherosclerotic heart disease of native coronary artery without angina pectoris; Z95.5 Presence of coronary angioplasty implant and graft; Z79.82 Long term (current) use of aspirin; Z79.899 Other long term (current) drug therapy
CPT/HCPCS: 71045; 80048; 80076; 81001; 83690; 84484; 85025; 87086; 87088; 93005; 96360; 99284; J7040; A4216

== ENCOUNTER 2019-03-27 00:34 | Emergency (ER) | payer MEDICARE, SELFPAY ==
[2019-03-27] VITALS (7 sets, daily range): BP systolic 93–132; BP diastolic 58–92; PULSE 69–176; RESP 14–26; TEMP 36.5; O2SAT 94–98; BMI 23.2
--- NOTE | 2019-03-27 00:54 | EKG12_ITS ---
Test Reason : INCREASED HR Blood Pressure : / mmHG Vent. Rate : 163 BPM Atrial Rate : 163 BPM P-R Int : 000 ms QRS Dur : 080 ms QT Int : 292 ms P-R-T Axes : 000 048 204 degrees QTc Int : 480 ms Atrial fibrillation with rapid ventricular response ST & T wave abnormality, consider inferolateral ischemia Abnormal ECG Confirmed by MIGUEL GRIMALDO, APRIL ([id number]), scientific publications editor RAFAEL MCNAIR ([id number]) on 03/29/2019 1:59:31 PM Referred By: Confirmed By:APRIL RIVERA MD
--- NOTE | 2019-03-27 00:54 | RAD_ITS ---
HISTORY:CHEST PAIN/NAUSEA/SOB CHEST PAIN/NAUSEA/SOB EXAM: XR Chest 1 View: COMPARISON: October 28, 2018 FINDINGS: # of images incl. paperwork: 1 LINES/DEVICES: None. LUNGS: Bibasilar atelectasis with questionable left basilar scarring that was present on the prior study. Minimal interstitial thickening was also present on the prior study. There is also minimal vascular prominence No pneumothorax. MEDIASTINUM AND CARDIOVASCULAR STRUCTURES: Cardiac silhouette not enlarged. BONES AND SOFT TISSUES: Unremarkable. RAD/Chest 1 View (Portable) IMPRESSION: Probable left basilar scarring Bibasilar atelectasis Mild vascular prominence Interstitial thickening that was present on the prior study and is probably chronic at 0148 Reported and signed by: Olya Kong DO Electronically Signed: Olya Kong DO at 1:47 EDT Tel , Service support ,
[2019-03-27 01:03] LABS: Absolute Lymphocyte Count 2.38 X10^3/ul (0.83-4.51); Absolute Neutrophil Count 7.5 X10^3/uL (2.0-7.7); Basophil# 0.04 X10^3/uL; Basophil% 0.4 % (0-1); Eosinophil# 0.23 X10^3/uL; Eosinophils% 2.1 % (0-5); Hematocrit 41.3 % (37-47); Hemoglobin 13.6 g/dl (12.0-15.0); Lymphocyte # 2.38 X10^3/ul (4.0); Lymphocyte % 21.5 % (19-41); Mean Corp Hgb Conc 32.9 g/gl (32-36); Mean Corpuscular Hgb 30.8 pg (27.0-32.0); Mean Corpuscular Volume 93.7 fL (81-99); Mean Platelet Vol. 10.4 fl (6.2-12.0); Monocyte# 0.95 X10^3/uL; Monocyte% 8.6 % (0-10); Neutrophil # 7.46 X10^3/uL (2.7-7.7); Neutrophil % 67.2 % (47-70); Platelet Count 275 K/mm3 (150-450); RBC Distribution Width CV 14.3 % (11.6-14.6); RBC Distribution Width SD 47.2 fl (35.1-43.9); Red Blood Count 4.41 M/mm3 (4.2-5.4); White Blood Count 11.1 K/mm3 (4.4-11.0)
[2019-03-27 01:04] LABS: POSITIVE COUNT NO; POSITIVE DIFFERENTIAL NO; POSITIVE MORPHOLOGY NO
[2019-03-27 01:17] LABS: Anion Gap 5 (5-15); BUN 14 mg/dL (7-18); BUN/Creat Ratio 15.6 RATIO (10-20); Calcium,Total 9.1 mg/dL (8.5-10.1); Chloride 111 mmol/L (98-107); EST Glomerular Filtration Rate 67 mL/min (>60); Est Glom Filt Rate - Afr Amer 81 mL/min (>60); Estimated Creatinine Clearance 56.78 ml/min; Glucose 136 mg/dL (74-106); Potassium 3.7 mmol/L (3.5-5.1); Sodium Level 141 mmol/L (136-145)
--- NOTE | 2019-03-27 01:18 | ED.VISSUMM ---
- ER Visit Summary Date of Service: 03/27/19 Chief Complaint: Chest pain History of Present Illness: The patient is a 68 F who presents with chest pain that began today. Patient states the pain began suddenly. Patient describes the pain as a burning. Patient states the pain is over the substernal area and radiates to her throat. Patient states nothing makes it better or worse. Patient admits to some nausea but denies any vomiting. Patient admits to shortness of breath and diaphoresis. Patient also admits to some palpitations where she felt like her heart is racing. Patient admits to some lightheadedness and cough. Patient denies any fevers or chills. Patient has a family history of coronary artery disease at a young age. Patient states she has a cardiac stent in place. Physical Examination: Vital signs are stable except for a tachycardia with a rate of 176. Patient is in no acute distress. Patient is afebrile. Oral mucosa is pink and moist. Neck is supple. Trachea is midline. There is no JVD noted. Heart was irregularly irregular and tachycardic. Lungs are clear and equal bilaterally. Abdomen is soft. Bowel sounds are normal. There is no tenderness. Cranial nerves II through XII are intact. There are no focal motor or sensory deficits noted. Test Results: EKG showed atrial fibrillation with a rate of 163. There are nonspecific ST-T wave changes in leads V3 through V6. CBC shows slight leukocytosis of 11.1. Glucose is 136. Troponin was 0.022. Chest x-ray showed bibasilar atelectasis and chronic changes. Emergency Department Course and Treatment: Patient was given aspirin. Patient was given a bolus of Cardizem here. Patient converted to normal sinus rhythm. Repeat EKG showed normal sinus rhythm with a rate of 67. There are no acute ST or T wave changes. Patient felt better and wants to go home. Patient will be discharged home and instructed to follow-up with her primary care physician 2 to 3 days. Patient was instructed on signs and symptoms which return to the emergency department. Patient understood and was agreeable with the plan. All questions were answered. Disposition: Discharge home Impression: 1. Atrial fibrillation, resolved This note was generated with eRepublikation software. It may contain incorrect words, spelling, and punctuation that were not noted in review of the chart prior to signing ED Disposition - Plan for ED Patient: Disposition: Home or Assisted Living Diagnosis: Atrial fibrillation Instructions: Atrial Fibrillation Referrals: Care Physician,No Primary [Primary Care Provider] - Mason Rivera MD [NON-STAFF] - 2 Days
[2019-03-27] MEDS: Aspirin 81 MG TAB.CHEW 324 MG PO (01:47)
[2019-03-27] MEDS: dilTIAZem 25 MG/5 ML Vial IV BOLUS (01:47)
[2019-03-27] MEDS: Ondansetron 4 MG/2 ML Vial IV (02:10)
--- NOTE | 2019-03-27 04:27 | EKG12_ITS ---
Test Reason : REPEAT EKG Blood Pressure : / mmHG Vent. Rate : 067 BPM Atrial Rate : 067 BPM P-R Int : 150 ms QRS Dur : 078 ms QT Int : 468 ms P-R-T Axes : 049 051 084 degrees QTc Int : 494 ms Normal sinus rhythm Prolonged QT Abnormal ECG Confirmed by MIGUEL GRIMALDO, APRIL ([id number]), editor map RAFAEL MCNAIR ([id number]) on 03/29/2019 1:48:03 PM Referred By: MARK Confirmed By:APRIL RIVERA MD
== END 2019-03-27 05:05 | disposition home or self-care (01) ==
PROVIDERS: Emergency Provider Emergency Medicine
DX: I48.91 Unspecified atrial fibrillation (principal); R11.0 Nausea; R05 Cough; H53.8 Other visual disturbances; M54.9 Dorsalgia, unspecified; R51 Headache; J98.11 Atelectasis; I25.10 Atherosclerotic heart disease of native coronary artery without angina pectoris; Z82.49 Family history of ischemic heart disease and other diseases of the circulatory system; Z95.5 Presence of coronary angioplasty implant and graft; Z79.82 Long term (current) use of aspirin; Z79.02 Long term (current) use of antithrombotics/antiplatelets; Z79.899 Other long term (current) drug therapy; F17.200 Nicotine dependence, unspecified, uncomplicated
CPT/HCPCS: 71045; 80048; 84484; 85025; 93005; 96374; 96375; 99285; J7030; A4216; J2405

== ENCOUNTER 2019-04-19 09:25 | Emergency (ER) | payer MEDICARE, SELFPAY ==
[2019-03-27 00:34] VITALS: BMI 23.2
[2019-04-19 09:27] VITALS: BP 153/72; PULSE 79; RESP 17; TEMP 36.5; O2SAT 96; BMI 22.6
[2019-04-19 09:39] VITALS: BP 153/72; PULSE 90; RESP 17; TEMP 36.5; O2SAT 96
--- NOTE | 2019-04-19 09:45 | RAD_ITS ---
STUDY: X-RAY CHEST REASON FOR EXAM: Female, 68 years old. Cough and chest congestion. TECHNIQUE: Single AP portable view of the chest. COMPARISON: Comparison is made with prior study dated March 27, 2019. FINDINGS: EKG electrodes are seen. Hyperinflation. Mild residual increased linear markings at the lung bases slightly more prominent on the left side although this has improved as compared to prior study. This most likely represents scarring. There is no demonstrated pleural abnormality. Normal size heart. Normal mediastinum and sheron. Normal visualized pulmonary arteries. There is atherosclerotic calcification of the aortic arch with tortuosity. Normal visualized thoracic spine. Normal visualized ribs, clavicles, and shoulders. There is no demonstrated abnormality of the visualized soft tissue structures of the upper abdomen. RAD/Chest 1 View (Portable) IMPRESSION: Mild residual increased markings at the lung bases suggestive of bibasilar scarring. There has been improvement as compared to prior study. Electronically Signed: Casa Livingston, at 10:05 EDT , Service support ,
--- NOTE | 2019-04-19 09:45 | EKG12_ITS ---
Test Reason : CP Blood Pressure : / mmHG Vent. Rate : 070 BPM Atrial Rate : 070 BPM P-R Int : 144 ms QRS Dur : 078 ms QT Int : 444 ms P-R-T Axes : 052 032 079 degrees QTc Int : 479 ms Normal sinus rhythm Low voltage QRS Borderline ECG Confirmed by XIN GROSS ([id number]), managing editor LUH CUTLER ([id number]) on 04/20/2019 2:37:32 PM Referred By: JANETH Confirmed By:XIN GROSS
[2019-04-19 10:19] LABS: Absolute Lymphocyte Count 1.86 X10^3/uL (0.83-4.51); Absolute Neutrophil Count 4.2 X10^3/uL (2.0-7.7); Basophil# 0.05 X10^3/uL; Basophil% 0.7 % (0-1); Eosinophil# 0.21 X10^3/uL; Hematocrit 40.5 % (37-47); Hemoglobin 13.2 g/dL (12.0-15.0); Lymphocyte # 1.86 X10^3/ul (4.0); Lymphocyte % 26.7 % (19-41); Mean Corp Hgb Conc 32.6 g/dL (32-36); Mean Corpuscular Hgb 31.5 pg (27.0-32.0); Mean Corpuscular Volume 96.7 fL (81-99); Mean Platelet Vol. 10.5 fl (6.2-12.0); Monocyte# 0.63 X10^3/uL; NRBC Flagged by Analyzer 0 % (0-5); Neutrophil % 60.3 % (47-70); Platelet Count 278 K/mm3 (150-450); RBC Distribution Width CV 14.3 % (11.6-14.6); RBC Distribution Width SD 50.4 fl (35.1-43.9); Red Blood Count 4.19 M/mm3 (4.2-5.4)
[2019-04-19] MEDS: fentaNYL 100 MCG/2 ML Ampul 50 MCG IV (10:22)
[2019-04-19] MEDS: 0.9% Normal Saline 1,000 ML 1000 ML IV (10:22)
[2019-04-19 10:28] VITALS: PULSE 78; RESP 18; TEMP 36.6; O2SAT 99
[2019-04-19 10:32] LABS: Anion Gap 4 (5-15); BUN 16 mg/dL (7-18); BUN/Creat Ratio 18.3 RATIO (10-20); Calcium,Total 9.2 mg/dL (8.5-10.1); Chloride 110 mmol/L (98-107); Creatinine, Serum 0.88 mg/dL (0.55-1.02); EST Glomerular Filtration Rate 68 mL/min (>60); Est Glom Filt Rate - Afr Amer 83 mL/min (>60); Estimated Creatinine Clearance 58.07 ml/min; Glucose 109 mg/dL (74-106); Potassium 4.1 mmol/L (3.5-5.1); Sodium Level 140 mmol/L (136-145)
[2019-04-19 10:33] LABS: D-Dimer Quantitative (DVT/PE) 0.71 FEU/ug/m (0.27-0.49)
--- NOTE | 2019-04-19 10:41 | CT_ITS ---
STUDY: CTA CHEST REASON FOR EXAM: Female, 68 years old. Chest pain. RADIATION DOSAGE (If Supplied By Facility): CTDIvol = ( 9.59 ) mGy, DLP = ( 308.78 ) mGycm TECHNIQUE: The examination was performed with the intravenous administration of 75 IV Isovue 370. Post-processing of the angiographic images was performed, with multiplanar reformation and 3D reconstruction. Individualized dose optimization techniques were used for this CT. COMPARISON: Comparison is made with prior study dated October 02, 2014 and prior chest radiograph done earlier in the day. FINDINGS: Normal enhancement of the main pulmonary artery and right and left pulmonary arteries. Normal enhancement of the bilateral peripheral pulmonary arteries. There is no demonstrated pulmonary embolism. Normal thoracic aorta and visualized great vessels. There is no demonstrated aortic dissection. Normal heart and pericardium. Normal mediastinum. Normal hilar regions. Normal visualized trachea and bronchi. The lungs are hyper expanded, with flattening of the hemidiaphragms. Mild degree of emphysematous changes more prominent in the upper lobes. Mild increased markings at the lung bases suggestive of bibasilar scarring slightly more prominent at the right lung base. Normal pleura. Normal chest wall structures. There are degenerative changes of thoracic spine. Increased kyphosis. Small hiatal hernia. CT/CTA Chest W/WO Contrast IMPRESSION: Hyperinflation and emphysematous changes. Mild scarring at the lung bases. There is no evidence of pulmonary embolism. Electronically Signed: Casa Livingston, at 11:29 EDT , Service support ,
[2019-04-19 11:05] VITALS: TEMP 37.1
--- NOTE | 2019-04-19 11:52 | ED.VISSUMM ---
- ER Visit Summary Date of Service: 04/19/19 Chief Complaint: Cough History of Present Illness: The patient is a 68 F who presents with a cough for 2 days. She does have some left-sided chest pain that she describes as a pressure. It is worse with breathing and coughing. No history of blood clots. She does have a history of atrial fibrillation and takes Eliquis. Physical Examination: Afebrile and vital signs unremarkable. Heart regular rate and rhythm. Lungs clear. Abdomen soft. Skin normal in color. Extremities unremarkable. Test Results: EKG showed sinus rhythm rate of 70. No sign of ischemia or infarction pattern. X-ray showed bibasilar scarring. CBC, BMP, troponin unremarkable. D-dimer slightly elevated 0.71. CTA was performed and showed emphysematous changes. Lung base scarring. No PE. Emergency Department Course and Treatment: Patient received fentanyl for pain while we were awaiting results. This sounds like chest wall pain. I had low suspicion for PE but d-dimer was elevated. CTA was unremarkable. I believe she has pleurisy and/or muscle pain. Patient may use Tylenol for pain. She was prescribed cough medicine. Follow-up with primary care. I did advise the patient that this does not sound like ACS. She was advised that this was not a complete work-up for ACS. She should call 911 or return if she has chest pain, unexplained shortness of breath, nausea sweats, or other concerns. Treatment Plan: As above Disposition: Discharged Impression: 1. Cough 2. Chest wall pain This note was generated with [employer] dictation software. It may contain incorrect words, spelling, and punctuation that were not noted in review of the chart prior to signing ED Disposition - Plan for ED Patient: Referrals: Care Physician,No Primary [Primary Care Provider] -
--- NOTE | 2019-04-19 11:55 | ED.DEP ---
ED Disposition - Plan for ED Patient: Instructions: Chest Wall Strain Prescriptions: Benzonatate [Tessalon Perle] 100 mg PO TID PRN PRN #30 cap PRN Reason: Cough Prescription Printed Referrals: Care Physician,No Primary [Primary Care Provider] -
[2019-04-19 12:23] VITALS: BP 131/102; PULSE 62; RESP 16; O2SAT 95
== END 2019-04-19 12:24 | disposition home or self-care (01) ==
LOC: ED 10:02
PROVIDERS: Emergency Provider Emergency Medicine
DX: R05 Cough (principal); R07.89 Other chest pain; R79.89 Other specified abnormal findings of blood chemistry; J44.9 Chronic obstructive pulmonary disease, unspecified; I10 Essential (primary) hypertension; I48.91 Unspecified atrial fibrillation; Z79.01 Long term (current) use of anticoagulants; Z79.02 Long term (current) use of antithrombotics/antiplatelets; Z79.899 Other long term (current) drug therapy; Z72.0 Tobacco use
CPT/HCPCS: 71045; 71275; 80048; 84484; 85025; 85379; 93005; 96361; 96374; 99285; J7030; Q9967; A4216

== ENCOUNTER 2019-10-23 08:25 | Emergency (ER) | payer MEDICARE, SELFPAY ==
[2019-10-23 08:26] VITALS: BP 178/84; PULSE 79; RESP 18; TEMP 36.7; O2SAT 99; BMI 21.9
--- NOTE | 2019-10-23 08:47 | RAD_ITS ---
STUDY: X-RAY CHEST REASON FOR EXAM: Female, 69 years old. COUGH, RIGHT ANTERIOR CHEST PAINS X 4 DAYS TECHNIQUE: PA and lateral views of the chest. COMPARISON: 04/19/2019 FINDINGS: The lungs are clear and expanded. There is no demonstrated pleural abnormality. Normal size heart. Normal mediastinum and sheron. Normal visualized pulmonary arteries. Normal visualized aortic arch and descending thoracic aorta. Normal visualized thoracic spine. Normal visualized ribs, clavicles, and shoulders. There is no demonstrated abnormality of the visualized soft tissue structures of the upper abdomen. RAD/Chest PA and Lateral IMPRESSION: Normal x-ray examination of the chest. Electronically Signed: Fredi Madsen MD at 9:58 EST Tel , Service support ,
--- NOTE | 2019-10-23 08:47 | EKG12_ITS ---
Test Reason : CP Blood Pressure : / mmHG Vent. Rate : 075 BPM Atrial Rate : 075 BPM P-R Int : 142 ms QRS Dur : 080 ms QT Int : 428 ms P-R-T Axes : 052 040 071 degrees QTc Int : 477 ms Sinus rhythm with Premature supraventricular complexes Otherwise normal ECG Confirmed by JUANA GRIMALDO, PRINCESS ([id number]), magazine editor TRE MAURICIO ([id number]) on 10/27/2019 2:59:25 PM Referred By: RICKY Confirmed By:SHASTA ARIAS MD
--- NOTE | 2019-10-23 08:52 | ED.DCSUM_ITS ---
- ER Visit Summary Date of Service: 10/23/19 Chief Complaint: Cough and chest pain History of Present Illness: The patient is a [address] Santana. She reports she has a cough that began 3 days ago. She does report that is productive, but she has such severe pain with coughing that she is unable to bring this. She reports the pain is a right-sided constant pain for the past 3 days. Is been gradually getting worse. Is a burning, sharp pain that is 10 out of 10 at worst and 6 out of 10 currently. It is increased with coughing or deep breaths. Nothing makes this better. Patient is on Eliquis for atrial fibrillation. Patient complains of chills, but denies fever. She reports she does have shortness of breath. She reports that it is moderate currently and severe at worst. Is increased with exertion and coughing. She reports that she has a difficult time using her inhaler as she is unable to take a deep breath. She did get a flu shot this year. 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 Physical Examination: Vitals: Stable. Afebrile. General: Well-nourished and well-developed. Head: Normocephalic atraumatic. Neck: Supple, no lymphadenopathy. No JVD. Nontender. Cardiovascular: Regular rate and rhythm. No murmurs. Respiratory: No respiratory distress. Mild end expiratory wheezing with good air movement. Abdominal: Soft, nontender, nondistended, normal bowel sounds. No guarding, rebound, or peritoneal signs. Back: Nontender. Extremities: Nontender, no edema. Skin: Normal color, no rash. Neurologic: Alert and oriented ?3. Cranial nerves II through XII are intact. Normal strength and sensation. Psych: Normal affect. Test Results: EKG is sinus at [address] changes. Is unchanged from April 2019. CBC is normal. Chem-7 shows a chloride of 112. Influenza is negative. Troponin was less than 0.015. Chest x-ray is normal. CT chest shows no PE or dissection. Emergency Department Course and Treatment: Patient was treated albuterol and Atrovent aerosols. She is given Solu-Medrol, morphine, and Zofran IV. She is resting more comfortably. Treatment Plan: Patient will be treated as a COPD exacerbation. She will be discharged with Zithromax, prednisone, she already has an albuterol MDI. She given [place] for pain. Instructed to follow-up with her primary care physician in 5 to 7 days for another exam. Return to the emergency department for any worsening symptoms. Disposition: To home in improved and stable condition. Impression: 1. URI. 3. Chest pain, atypical This note was generated with [employer] dictation software. It may contain incorrect words, spelling, and punctuation that were not noted in review of the chart prior to signing ED Disposition - Plan for ED Patient: Instructions: Copd Flare Prescriptions: Prednisone [Deltasone] 40 mg PO DAILY #10 tablet Hydrocodone Bitart/Apap 5-325 [[place] 5MG-325MG] 1 tablet PO Q6H PRN PRN 3 Days #10 tablet PRN Reason: Pain Azithromycin [Zithromax Z-Ozzy] 250 mg PO UD #1 box Referrals: Nelida Santana [Primary Care Provider] - 5-7 Days
[2019-10-23] MEDS: Ipratropium/Albuterol Sulfate 3 ML AMPUL.NEB INHALATION (09:07)
[2019-10-23 09:08] VITALS: PULSE 70; RESP 18
[2019-10-23] MEDS: Ondansetron 4 MG/2 ML Vial IV (09:14)
[2019-10-23] MEDS: Morphine 4 MG/ML Syringe IV ×2 (09:14→11:08)
[2019-10-23 09:20] LABS: Absolute Lymphocyte Count 1.41 X10^3/uL (0.83-4.51); Absolute Neutrophil Count 3.9 X10^3/uL (2.0-7.7); Basophil# 0.04 X10^3/uL; Basophil% 0.7 % (0-1); Eosinophil# 0.13 X10^3/uL; Eosinophils% 2.2 % (0-5); Hematocrit 43.9 % (37-47); Hemoglobin 13.9 g/dL (12.0-15.0); Lymphocyte # 1.41 X10^3/ul (4.0); Lymphocyte % 23.7 % (19-41); Mean Corp Hgb Conc 31.7 g/dL (32-36); Mean Corpuscular Hgb 31.1 pg (27.0-32.0); Mean Corpuscular Volume 98.2 fL (81-99); Mean Platelet Vol. 10.3 fl (6.2-12.0); Monocyte# 0.44 X10^3/uL; Monocyte% 7.4 % (0-10); NRBC Flagged by Analyzer 0 % (0-5); Neutrophil # 3.91 X10^3/uL (2.7-7.7); Neutrophil % 65.8 % (47-70); Platelet Count 265 K/mm3 (150-450); RBC Distribution Width CV 13.2 % (11.6-14.6); RBC Distribution Width SD 47.8 fl (35.1-43.9); Red Blood Count 4.47 M/mm3 (4.2-5.4); White Blood Count 5.9 K/mm3 (4.4-11.0)
[2019-10-23 09:27] LABS: Anion Gap 2 (5-15); BUN 14 mg/dL (7-18); BUN/Creat Ratio 16.4 RATIO (10-20); Calcium,Total 9.2 mg/dL (8.5-10.1); Chloride 112 mmol/L (98-107); Creatinine, Serum 0.85 mg/dL (0.55-1.02); EST Glomerular Filtration Rate 70 mL/min (>60); Est Glom Filt Rate - Afr Amer 85 mL/min (>60); Glucose 86 mg/dL (74-106); Potassium 4.3 mmol/L (3.5-5.1); Sodium Level 141 mmol/L (136-145)
[2019-10-23 09:28] VITALS: BP 136/76; PULSE 77; RESP 16; TEMP 36.7; O2SAT 94
[2019-10-23 09:31] LABS: Lactic Acid 0.7 mmol/L (0.4-1.9)
[2019-10-23 10:00] VITALS: BP 152/81; PULSE 77; RESP 16; TEMP 36.7; O2SAT 94
--- NOTE | 2019-10-23 10:12 | CT_ITS ---
STUDY: CTA CHEST REASON FOR EXAM: Female, 69 years old. COUGH, SOB, PE SUSPECTED RADIATION DOSAGE (If Supplied By Facility): CTDIvol = ( 7.81 ) mGy, DLP = ( 167.61 ) mGycm TECHNIQUE: The examination was performed with the intravenous administration of 100 CC ISOVUE 370. Post-processing of the angiographic images was performed, with multiplanar reformation and 3D reconstruction. Individualized dose optimization techniques were used for this CT. COMPARISON: 04/19/2019 FINDINGS: Normal enhancement of the main pulmonary artery and right and left pulmonary arteries. Normal enhancement of the bilateral peripheral pulmonary arteries. There is no demonstrated pulmonary embolism. Normal thoracic aorta and visualized great vessels. There is no demonstrated aortic dissection. Normal heart and pericardium. There are calcifications of the coronary arteries. Small hiatal hernia. Normal hilar regions. Normal visualized trachea and bronchi. The lungs are well expanded. Mild emphysematous changes. Bilateral linear scarring. No noncalcified nodule or mass Normal pleura. Normal chest wall structures. Normal osseous structures. Normal visualized upper abdomen. CT/CTA Chest W/WO Contrast IMPRESSION: Normal CTA chest examination, without a demonstrated pulmonary embolism or arterial dissection. Electronically Signed: Fredi Madsen MD at 11:08 EST Tel , Service support ,
[2019-10-23 11:00] VITALS: BP 135/78; PULSE 77; RESP 16; TEMP 36.9; O2SAT 95
[2019-10-23 11:59] VITALS: BP 140/72; PULSE 70; RESP 18; O2SAT 92
--- NOTE | 2019-10-23 12:19 | ED.RN ---
patient told numerous times she is not allowed to drive after having morphine. states she will call daughter to pick her up. patient informed it is illegal for her to drive 4-6 hours after taking a narcotic
== END 2019-10-23 12:52 | disposition home or self-care (01) ==
LOC: ED 08:55
PROVIDERS: Emergency Provider Emergency Medicine; PCP Family Medicine
DX: J06.9 Acute upper respiratory infection, unspecified (principal); R07.89 Other chest pain; I49.3 Ventricular premature depolarization; I48.91 Unspecified atrial fibrillation; I25.10 Atherosclerotic heart disease of native coronary artery without angina pectoris; I10 Essential (primary) hypertension; K58.9 Irritable bowel syndrome, unspecified; Z95.5 Presence of coronary angioplasty implant and graft; Z79.01 Long term (current) use of anticoagulants; Z79.02 Long term (current) use of antithrombotics/antiplatelets; Z79.899 Other long term (current) drug therapy; F17.200 Nicotine dependence, unspecified, uncomplicated
CPT/HCPCS: 71046; 71275; 80048; 83605; 84484; 85025; 87040; 87804; 93005; 94640; 96361; 96374; 96375; 96376; 99284; J7030; Q9967; A4216; J2405

== ENCOUNTER 2019-11-16 05:27 | Inpatient (IN) | payer MEDICARE, SELFPAY ==
[2019-11-16] VITALS (31 sets, daily range): BP systolic 78–120; BP diastolic 51–108; PULSE 53–169; RESP 16–29; TEMP 36.4–37; O2SAT 92–100; BMI 18.9; BMI 22.4; BMI 22.5
--- NOTE | 2019-11-16 05:29 | EKG12_ITS ---
Test Reason : PALPITATIONS Blood Pressure : / mmHG Vent. Rate : 163 BPM Atrial Rate : 250 BPM P-R Int : 000 ms QRS Dur : 076 ms QT Int : 298 ms P-R-T Axes : 000 038 074 degrees QTc Int : 490 ms Atrial fibrillation with rapid ventricular response ST & T wave abnormality, consider inferior ischemia Abnormal ECG Confirmed by XIN GROSS ([id number]), supervising film or videotape editor RAFAEL MCNAIR ([id number]) on 11/16/2019 2:17:39 PM Referred By: RHONA Confirmed By:XIN GROSS
--- NOTE | 2019-11-16 05:29 | RAD_ITS ---
STUDY: X-RAY CHEST REASON FOR EXAM: Female, 69 years old. Palpitations, chest pain, vomiting. TECHNIQUE: AP portable chest. COMPARISON: October 23, 2019. FINDINGS: Minimal linear left basilar subsegmental atelectasis or fibrosis unchanged. No focal infiltrates or effusions. No pneumothorax. Normal size heart. Normal mediastinum and sheron. Normal visualized pulmonary arteries. Normal visualized aortic arch and descending thoracic aorta. Normal visualized thoracic spine. Normal visualized ribs, clavicles, and shoulders. There is no demonstrated abnormality of the visualized soft tissue structures of the upper abdomen. RAD/Chest 1 View (Portable) IMPRESSION: Stable chest, no acute cardiopulmonary disease. Electronically Signed: Nathan Black MD at 6:00 EST , Service support ,
--- NOTE | 2019-11-16 05:38 | ED.DCSUM_ITS ---
- ER Visit Summary Date of Service: 11/16/19 Chief Complaint: Chest pain History of Present Illness: The patient is a 69 F presenting with chest pain. She states it started yesterday. Pain has been intermittent. She describes a chest burning sensation. She has associated shortness of breath and palpitat ions. She states she had vomiting several episodes last night. She has a history of CAD, hypertension, myoclonic jerking. She is a smoker. Denies recent fever or cough. Denies other complaints. Physical Examination: Vitals are stable. Heart rate 169. Patient is afebrile. Alert no acute distress. HEENT exam is unremarkable. Neck is supple. Lungs are diminished bilaterally. Heart is irregularly irregular Abdomen is soft nontender nondistended. Extremities are unremarkable. Skin is warm and dry. No focal neurologic deficit. Remainder of exam is unremarkable. Emergency Department Course and Treatment: Patient was given aspirin on arrival. EKG is A. fib with RVR rate of 163. She was given Cardizem IV. Heart rate improved to the 140s and she was given 2nd dose of Cardizem IV. Chest x-ray shows no acute process. CBC, chemistries unremarkable other than glucose 206. Troponin is negative. Her heart rate after the second dose of Cardizem is in the 120s. She was started on a Cardizem drip. Discussed with the hospitalist for admission. Disposition: Admission Impression: A. fib with RVR, chest pain This note was generated with [employer] dictation software. It may contain incorrect words, spelling, and punctuation that were not noted in review of the chart prior to signing ED Disposition - Plan for ED Patient: Referrals: Nelida Santana [Primary Care Provider] -
[2019-11-16] MEDS: dilTIAZem 25 MG/5 ML Vial 10 MG IV BOLUS ×2 (05:40→05:57)
[2019-11-16] MEDS: Ondansetron 4 MG/2 ML Vial IV ×2 (05:44→14:04)
[2019-11-16] MEDS: Aspirin 81 MG TAB.CHEW 324 MG PO (05:44)
[2019-11-16 05:47] LABS: Absolute Lymphocyte Count 1.18 X10^3/uL (0.83-4.51); Absolute Neutrophil Count 4.6 X10^3/uL (2.0-7.7); Basophil# 0.04 X10^3/uL; Basophil% 0.6 % (0-1); Eosinophil# 0.06 X10^3/uL; Eosinophils% 0.9 % (0-5); Hematocrit 45.6 % (37-47); Hemoglobin 14.4 g/dL (12.0-15.0); Lymphocyte # 1.18 X10^3/ul (4.0); Mean Corp Hgb Conc 31.6 g/dL (32-36); Mean Corpuscular Hgb 31.1 pg (27.0-32.0); Mean Corpuscular Volume 98.5 fL (81-99); Mean Platelet Vol. 10.1 fl (6.2-12.0); Monocyte# 1.02 X10^3/uL; Monocyte% 14.7 % (0-10); NRBC Flagged by Analyzer 0 % (0-5); Neutrophil # 4.61 X10^3/uL (2.7-7.7); Neutrophil % 66.5 % (47-70); Platelet Count 248 K/mm3 (150-450); RBC Distribution Width CV 12.9 % (11.6-14.6); RBC Distribution Width SD 46.2 fl (35.1-43.9); Red Blood Count 4.63 M/mm3 (4.2-5.4); White Blood Count 6.9 K/mm3 (4.4-11.0)
[2019-11-16 06:04] LABS: Anion Gap 7 (5-15); BUN 13 mg/dL (7-18); BUN/Creat Ratio 12.7 RATIO (10-20); Calcium,Total 9.1 mg/dL (8.5-10.1); Chloride 104 mmol/L (98-107); Creatinine, Serum 1.02 mg/dL (0.55-1.02); EST Glomerular Filtration Rate 57 mL/min (>60); Est Glom Filt Rate - Afr Amer 69 mL/min (>60); Estimated Creatinine Clearance 44.33 ml/min; Glucose 206 mg/dL (74-106); Potassium 3.5 mmol/L (3.5-5.1); Sodium Level 137 mmol/L (136-145)
[2019-11-16] MEDS: 0.9% Normal Saline 1,000 ML 999 ML IV (06:37)
--- NOTE | 2019-11-16 06:45 | ED.RN ---
Opened fluids. Per Dr. Grajeda, hold Cardizem until BP is above 100/.
[2019-11-16] MEDS: dilTIAZem 25 MG/5 ML Vial 5 MG IV BOLUS (07:21)
--- NOTE | 2019-11-16 07:24 | ED.RN ---
dr cardona in to see pt. another 5mg cardizem ivp ordered x1. hr still 120's. bp 105/88.
--- NOTE | 2019-11-16 07:46 | HP.PCM_ITS ---
Problem List (1) Atrial fibrillation with RVR Status: Acute (2) Irritable bowel Status: Suspected (3) Hypertension Status: Chronic (4) Chest pain Status: Acute (5) Esophagitis Status: Chronic (6) Tobacco abuse Status: Chronic (7) Myoclonic disorder Status: Chronic (8) COPD (chronic obstructive pulmonary disease) Status: Chronic (9) CAD (coronary artery disease) Status: Chronic Qualifiers: Coronary Disease-Associated Artery/Lesion type: [place] artery [place] vs. transplanted heart: menominee heart History of Present Illness Date of Admission: 11/16/19 Chief Complaint: chest pain The patient is a 69 year old F presents with 3 days of chest pain. Chest pain is midsternal and burning in quality. Chest pain goes up to her jaw but nowhere else. Patient has been feeling palpitations as well is increasing shortness of breath. Prior to this, patient has been feeling sick with an upper respiratory infection. Since then, patient has been having a deep cough. Is been nonproductive. Patient presented to the emergency room today and was found to be in atrial fibrillation with RVR. Patient received a total of 25 mg of IV diltiazem bolus and then was placed on a drip. Patient states that her chest pain feels similar to when she has had cardiac disease before. [] Past Medical History Past Medical History (Chronic Problems): Chronic Problems COPD (chronic obstructive pulmonary disease) (Chronic) CAD (coronary artery disease) (Chronic) Hypertension (Chronic) Esophagitis (Chronic) Tobacco abuse (Chronic) Myoclonic disorder (Chronic) Allergies levofloxacin [From Levaquin] Allergy (Verified 10/23/19 08:26) Rash phenytoin [From Dilantin] Allergy (Verified 10/23/19 11:09) Swelling Home Medications: Ambulatory Orders Medication Instructions Recorded Clopidogrel Bisulfate [Plavix] 75 mg PO DAILY 10/01/18 Apixaban [Eliquis] 5 mg PO BID 04/19/19 Clonazepam 2 mg PO BID 04/19/19 Gabapentin [Neurontin] 600 mg PO TID 04/19/19 Lisinopril [Zestril] 20 mg PO DAILY 04/19/19 traMADol [Ultram] 1 tab PO BID PRN 04/19/19 Albuterol Sulfate [Ventolin Hfa] 2 puff INHALATION Q4H PRN PRN 10/23/19 Hydrochlorothiazide [Hctz] 25 mg PO DAILY 10/23/19 Surgical History: adenoidectomy, hysterectomy, tonsillectomy, - - Cyst removal Psychiatric History: No pertinent psych hx 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 Denies: Shortness of breath at rest, Sputum production Gastrointestinal: Reports: Nausea, Vomiting. Denies: Abdominal Pain, Constipation, Diarrhea, Dyspepsia Genitourinary: Denies: Dysuria Musculoskeletal: Denies: Joint Pain, Joint Tenderness Skin: Denies: Dryness, Jaundice Neurological: Reports: Numbness - In her lower extremities. Denies: Focal weakness, Tingling Psychiatric: Denies: Anxiety, Depression Endocrine: Denies: Change in Body Habitus, Heat/ Cold Intolerance Hematologic/ Lymphatic: Denies: Easy Bruising, Easy Bleeding, Hx of blood clot Comment: All review of systems were negative except as mentioned above in the history of present illness and the other review of systems. VTE Information - Inpt Only VTE Present on Admission: No VTE Mechan Device Prophylaxis: None VTE Pharm Prophylaxis ordered?: No - Physical Exam Vitals/I&O's: Vital Signs Temp Pulse Resp BP Pulse Ox 36.9 C 127 H 21 H 101/58 L 97 11/16/19 07:31 11/16/19 07:31 11/16/19 07:31 11/16/19 07:31 11/16/19 07:31 Oxygen Flow Rate (L/min) 2 Oxygen Delivery Method Nasal Cannula Weight: 53.2 kg Body Mass Index (BMI) 18.9 General: Alert, Cooperative, No apparent distress HEENT: Atraumatic, Normocephalic Oral: Moist Mucosa, No Gingival or Mucosal Lesions/ Ulcerations Neck: No Nodes, Trachea Midline Lungs: Clear to auscultation, Normal air movement, No rhonchi, No wheeze Cardiovascular: Irregular Rate, Tachycardic Abdomen: Bowel Sounds Present, Soft, Non Tender, Non-Distended, No Hepato- splenomegaly Extremities: No edema, No Calf Tenderness Skin: No rashes, No breakdown Musculoskeletal: No Tenderness to Palpation of Joints or Extremities, No Muscle Wasting Lymphatic: No Cervical, Supraclavicular, or Inguinal Adenopathy, Cervical Adenopathy Neurological: Deep Tendon Reflexes 2+/4 and Symmetrical, - - No clonus Psych/Mental Status: Normal Affect, Appropriate Laboratory Results 11/16/19 05:30: WBC 6.9, RBC 4.63, Hgb 14.4, Hct 45.6, MCV 98.5, MCH 31.1, MCHC 31.6 L, RDW Std Deviation 46.2 H, RDW Coeff of Claudia 12.9, Plt Count 248, MPV 10.1, Immature Gran % (Auto) 0.300, Neut % (Auto) 66.5, Lymph % (Auto) 17.0 L, Dillon % (Auto) 14.7 H, Eos % (Auto) 0.9, Baso % (Auto) 0.6, Absolute Neuts (auto) 4.6, Absolute Lymphs (auto) 1.18, Nucleated RBC % 0 11/16/19 05:30: Sodium 137, Potassium 3.5, Chloride 104, Carbon Dioxide 26.0, Anion Gap 7, BUN 13, Creatinine 1.02, Estim Creat Clear Calc 44.33, Est GFR (MDRD) Af Amer 69, Est GFR (MDRD) Non-Af 57 L, BUN/Creatinine Ratio 12.7, Glucose 206 H, Calcium 9.1, Troponin I < 0.015 Chest x-ray personally reviewed and showed hyperinflated airways with no infil trate nor pulmonary edema. EKG personally reviewed and showed atrial fibrillation with RVR. Current Medications Diltiazem HCl 125 mg/ Dextrose 125 mls @ 5 mls/hr IV .Q25H [facility] [place]; Protocol Last Admin: 11/16/19 07:12 Dose: 5 mg/hr, 5 mls/hr Documented by: Assessment/Plan All Active Problems Atrial fibrillation with RVR (Acute) Chest pain (Acute) 1. Atrial fibrillation with RVR * Patient received 25 mg of IV diltiazem in bolus form and has been subsequently started on a diltiazem drip. We will continue with the diltiazem drip for now and eventually transition patient over to oral meds. * Check echocardiogram * Consult cardiology * Is possible the atrial fibrillation could have been precipitated by the patient's recent upper respiratory which may be now or lower respiratory bronchitis. * Already anticoagulated on apixaban 2. Chest pain * Patient with known coronary artery disease * Cycle troponins * May require stress test but will hold off on that for now until her atrial fibrillation can be under better control 3. Possible viral bronchitis * Continue with her albuterol and start her on prednisone burst 4. COPD: Appears to be stable at this time. 5. VTE prophylaxis: Low risk as patient is already on apixaban 6. Myoclonus: Has had this since childhood and still continues to work. Follow-up with neurology as needed 7. Advanced care planning: Patient wished to be full CODE STATUS. 8. Tobacco abuse: Told patient that she can have a nicotine patch. Did advise smoking cessation given that she smokes 2 packs/day. Told patient that if she does leave to go outside smoke that she will be leaving AGAINST MEDICAL ADVICE and possibly the cost of her hospitalization at that point may be her financial responsibility. Code Visit Inpatient E&M: 94954 Init Hosp L3
--- NOTE | 2019-11-16 07:47 | ECHOD_ITS ---
Reason For Study: Afib Procedure This was a 2D Doppler, Color Flow transthoracic echocardiogram. Exam performed portable in patient room. Left Ventricle Severe assymetric septal hypertrophy. The estimated ejection fraction is 65 %. Stage 1 diastolic dysfunction. No regional wall motion abnormalities noted. Right Ventricle Normal size and thickness. Normal systolic function. Atria The left atrium is mildly enlarged. Normal right atrium. Normal atrial septum. Mitral Valve The mitral valve is structurally normal. No prolapse or stenosis seen. Trivial mitral valve insufficiency. Tricuspid Valve Normal tricuspid valve. Unable to estimate RV systolic pressure due to insufficient tricuspid regurgitant envelope. Aortic Valve Trisinus/trileaflet aortic valve. Mild diffuse aortic valve thickening. Moderate focal aortic valve thickening. There is no aortic stenosis. Pulmonic Valve Normal pulmonic valve. Great Vessels Normal aortic root. Normal arch. Normal inferior vena cava. Inferior vena cava collapse with sniff. Pericardium/Pleural No pericardial effusion. MMode/2D Measurements & Calculations LVIDd: 3.9 cm IVSd: 1.8 cm Ao root diam: 3.3 cm LVIDs: 2.8 cm LVPWd: 1.1 cm RVDd: 3.3 cm FS: 27.7 % LAV(MOD-bp): 63.8 ml LA A4 area: 19.2 cm2 LA dimension(2D): 4.9 cm LAV(MOD-bp) Indexed: 40.0 ml/m2 LAV(MOD-sp2): 83.0 ml LAV(MOD-sp4): 48.3 ml RA A4 area: 14.9 cm2 Doppler Measurements & Calculations MV E max luís: 85.7 cm/sec Lat Peak E' Luís: 5.6 cm/sec Med Peak E' Luís: 4.9 cm/sec MV A max luís: 116.3 cm/sec E/E' lat: 15.3 E/E' med: 17.5 MV E/A: 0.74 Ao V2 max: 123.8 cm/sec LV V1 max: 109.1 cm/sec PA V2 max: 66.4 cm/sec Ao max P.1 mmHg LV V1 max P.8 mmHg Ao V2 mean: 92.9 cm/sec Ao mean P.7 mmHg Ao V2 VTI: 31.9 cm Interpretation Summary The estimated ejection fraction is 65 %. Stage 1 diastolic dysfunction. Unable to estimate RV systolic pressure due to insufficient tricuspid regurgitant envelope. There is no comparison study available. Ordering Physician: Luis Bourne Referring Physician: Nelida Santana Performed By: Monica Dave RDCS, RVT
--- NOTE | 2019-11-16 08:31 | PCM.CONS.C ---
Problem List (1) CAD (coronary artery disease) Status: Chronic Qualifiers: Coronary Disease-Associated Artery/Lesion type: circle artery [place] vs. transplanted heart: circle heart (2) Atrial fibrillation with RVR Status: Acute (3) Hypertension Status: Chronic (4) Chest pain Status: Acute (5) Tobacco abuse Status: Chronic Reason for Consult Date of Consultation: 11/16/19 Reason for Consultation: Atrial fibrillation, coronary artery disease, tobacco abuse, hypertension, hyperlipidemia, noncompliance History of Present Illness: The patient is a 69 year old F, primary patient of Dr. Pineda's, previous what sounds like acute myocardial infarction who originally went to [facility] and then was transferred [facility] about a year and a half ago and underwent emergent heart catheterization received 2 stents to unknown arteries. She has had no subsequent catheterization, or repeat stress test. Unfortunately she continues to smoke about 2 packs of cigarettes per day and has done so for the at least the past 40 years. In addition she has a history of paroxysmal atrial fibrillation and is supposed to be on Eliquis therapy, but takes it intermittently. She is no longer on baby aspirin but only Plavix. She denies any previous CVA, diabetes, and has not taken her metoprolol since February 2019. Patient presented with 3-day history of dry hacking cough, no fevers, chills, no productive sputum, and palpitations and rapid heart rate. She denied any chest pain similar to her previous angina but did complain of fluttering sensation. [] Past Medical History Allergies/Adverse Reactions: Allergies levofloxacin [From Levaquin] Allergy (Verified 10/23/19 08:26) Rash phenytoin [From Dilantin] Allergy (Verified 10/23/19 11:09) Swelling Home Medications: Ambulatory Orders Medication Instructions Recorded Clopidogrel Bisulfate [Plavix] 75 mg PO DAILY 10/01/18 Apixaban [Eliquis] 5 mg PO BID 04/19/19 Clonazepam 2 mg PO BID 04/19/19 Gabapentin [Neurontin] 600 mg PO TID 04/19/19 Lisinopril [Zestril] 20 mg PO DAILY 04/19/19 traMADol [Ultram] 1 tab PO BID PRN 04/19/19 Albuterol Sulfate [Ventolin Hfa] 2 puff INHALATION Q4H PRN PRN 10/23/19 Hydrochlorothiazide [Hctz] 25 mg PO DAILY 10/23/19 Past Medical History (Chronic Problems): Chronic Problems COPD (chronic obstructive pulmonary disease) (Chronic) CAD (coronary artery disease) (Chronic) Hypertension (Chronic) Esophagitis (Chronic) Tobacco abuse (Chronic) Myoclonic disorder (Chronic) Surgical History: adenoidectomy, hysterectomy, tonsillectomy, - - Cyst removal Psychiatric History: No pertinent psych hx [employer] History: No pertinent [employer] history, ovarian cysts - Presumed - *Family History Maternal History Items: Heart Disease, Stroke Paternal History Items: Cancer - Laryngeal, Heart Disease Smoking Status: Heavy Smoker (>10/day) Tobacco Use: Cigarettes Alcohol: None Drugs: - - Drinks 2 pots of coffee per day Review of Systems - Review of Systems General: Denies: Fever, Night Sweats, Fatigue Cardiovascular: Reports: Chest Discomfort at Rest, Shortness of Breath, Shortness of Breath at Rest, Palpitations. Denies: Chest Discomfort, Orthopnea, PND, Peripheral Edema, Lightheadedness, Dizziness, Near Syncope, Syncope Respiratory: Reports: Cough, Non Productive Cough. Denies: Sputum Production, Hemoptysis Gastrointestinal: Denies: Hematemesis, Hematochezia, Melena Genitourinary: Denies: Dysuria, Hematuria Skin: Denies: Rash Subjectve: Patient sitting in bed, no acute distress. Objective: Vital Signs Temp Pulse Resp BP Pulse Ox 98.5 F 127 H 21 H 101/58 L 97 11/16/19 07:31 11/16/19 07:31 11/16/19 07:31 11/16/19 07:31 11/16/19 07:31 Oxygen Flow Rate (L/min) 2 Oxygen Delivery Method Nasal Cannula Weight: 139 lb 1.787 oz Body Mass Index (BMI) 22.4 Intake and Output for Last 24 Hours 11/14/19 11/15/19 11/16/19 23:59 23:59 23:59 Intake Total 1000 / 1000 Balance 1000 / 1000 General: Awake, Alert, Oriented x 3 HEENT: PERRL, EOMI, Sclera Non Icteric Neck: Supple, Good ROM, No Lymph Node Enlargement Lungs: Rales - Reed Bases Cardiovascular: Irregular Rhythm, Normal S1, Normal S2, No Murmurs, No Rubs, No Gallops Vascular: No Carotid Bruits, Normal Femoral Pulses, Normal Radial Pulses, Normal Dorsalis Pedal Pulse, Normal Posterior Tibial Pulses Abdomen: Bowel Sounds Present, Soft, Non Tender, No HSM, No Organomegaly Extremities: No Cyanosis, No Clubbing, No edema Neurological: No Focal Motor or Sensory Deficit 11/16/19 05:30: WBC 6.9, RBC 4.63, Hgb 14.4, Hct 45.6, MCV 98.5, MCH 31.1, MCHC 31.6 L, Plt Count 248, MPV 10.1, Immature Gran % (Auto) 0.300, Neut % (Auto) 66.5, Lymph % (Auto) 17.0 L, Aiken % (Auto) 14.7 H, Eos % (Auto) 0.9, Baso % (Auto) 0.6, Absolute Neuts (auto) 4.6, Nucleated RBC % 0 11/16/19 05:30: Sodium 137, Potassium 3.5, Chloride 104, Carbon Dioxide 26.0, Anion Gap 7, BUN 13, Creatinine 1.02, Est GFR (MDRD) Af Amer 69, Est GFR (MDRD) Non-Af 57 L, BUN/Creatinine Ratio 12.7, Glucose 206 H, Calcium 9.1, Troponin I < 0.015 Rhythm: EKG: Atrial fibrillation with rapid ventricular response, no acute changes. ECHO: Pending Stress Test: Cardiac Cath: PCI: CT Surgery: Holter monitor: EPS: PPM: CXR: Chest CT Scan: Assessment/Plan 1. Atrial fibrillation: The patient presents with at least a 3-day history of atrial fibrillation with rapid ventricular response, uncontrolled heart rate, medical noncompliance and apparently has not taken her metoprolol succinate in some time. In addition she has intermittent Eliquis use, making DC cardioversion somewhat problematic. At this point she is on a Cardizem drip at 5mg/h, and recommend increasing this to maximum 20 mg/h. In addition we will give her Lopressor 5 mg IV x1 now, and restart her on her Toprol-XL starting at 25 mg p.o. daily. Patient will continue her Eliquis as outlined in the MRF. I recommended the patient undergo a 2D echo with Doppler to determine her LV function and pulmonary pressure status. If the patient rules out for myocardial infarction x3 troponins, and if we can get her off her Cardizem drip, she will then require a noninvasive walking treadmill echocardiogram at some point. We are unable to control her heart rate with beta-fariba or calcium channel fariba, the patient may require IV amiodarone. At some point patient will require at least 3 weeks time of durable Eliquis therapy followed by elective DC cardioversion. 2. Coronary artery disease: Again we will continue Plavix therapy, continue Eliquis therapy, continue to rule her out for myocardial infarction, obtain a 2D echo with Doppler and obtain a stress test if she rules out for myocardial infarction. In addition we will restart her Toprol-XL at 25 mg p.o. daily and titrate up to 50 mg p.o. daily. Of also recommended discontinuation of her lisinopril given her dry hacking cough, and we would substitute for Cozaar once we obtain her LV function by echocardiogram. 3. Hyperlipidemia: Recommend obtaining a fast lipid profile. Not sure why the patient is not on a statin based medication. She has no statin allergies. Recommend starting Lipitor 40 mg p.o. nightly. 4. Tobacco cessation: I had a long and thorough discussion with the patient regarding tobacco cessation, and strongly recommended discontinuation of all tobacco products. 5. Thank you very much for the opportunity to participate in the cardiac care of your patient. Consultation time took place between 8 AM and 8:30 AM. Code Visit Inpatient E&M: 12993 Init Hosp L2
[2019-11-16] MEDS: guaiFENesin/Codeine 5 ML UDC PO (08:32)
[2019-11-16] MEDS: Metoprolol Tartrate 5 MG/5 ML Vial IV (08:33)
[2019-11-16] MEDS: 0.9% Saline Lock 10 ML Syringe IV ×3 (08:33→14:04)
[2019-11-16] MEDS: predniSONE 20 MG Tablet 40 MG PO (08:36)
[2019-11-16] MEDS: Metoprolol(XL)Succ 25 MG Tablet PO (08:38)
[2019-11-16] MEDS: Gabapentin 300 MG Capsule 600 MG PO (08:38)
[2019-11-16] MEDS: Clopidogrel Bisulfate 75 MG Tablet PO (08:38)
[2019-11-16] MEDS: APIXABAN 5 MG TABLET PO ×2 (08:38→21:36)
[2019-11-16] MEDS: clonazePAM 1 MG Tablet 2 MG PO (08:41)
--- NOTE | 2019-11-16 09:26 | EKG12_ITS ---
Test Reason : ARRYTHMIA Blood Pressure : / mmHG Vent. Rate : 058 BPM Atrial Rate : 058 BPM P-R Int : 142 ms QRS Dur : 082 ms QT Int : 470 ms P-R-T Axes : 038 059 092 degrees QTc Int : 461 ms Sinus bradycardia Low voltage QRS Borderline ECG Confirmed by MIGUEL GRIMALDO, APRIL ([id number]), commissioning editor TRE MAURICIO ([id number]) on 11/21/2019 4:01:43 PM Referred By: DERICK Confirmed By:APRIL RIVERA MD
--- NOTE | 2019-11-16 14:35 | CASEMGMT ---
RN CM Assessment Intro role of CM to patient in room. Pt able to participate, but is still sleepy. Daughter and grandson are in room and able to assist with assessment. Demographics, PCP verified. Per family, pt is independent, does not use DME, drives and had no prior care needs. Anticipate plan will be home on discharge. Grandson Raudel states he lives at the home, and daughter states if pt needs any care on dc, she will take pt to her home.\ PCP: Dr. Nelida Santana ([place]) Pharmacy: [facility] Benefit: yes. Pt is on Eliquis currently. Insurance: [employer] Living arrangements: pt lives independently. No care needs identified. DME: none Pt's DC Plan: home DC PLAN: anticipate home on discharge. Pt is on Eliquis currently, will likely need on dc. Nabila BOLANOSN RN ACM
[2019-11-16] MEDS: Acetaminophen 325 MG Tablet 650 MG PO (16:34)
[2019-11-17 02:57] VITALS: PULSE 73
[2019-11-17 03:30] VITALS: BP 124/62; PULSE 62; RESP 18; TEMP 36.6; O2SAT 94
[2019-11-17] MEDS: guaiFENesin 10 ML UDC (200MG/10ML) PO ×2 (04:15→09:27)
[2019-11-17] MEDS: Clopidogrel Bisulfate 75 MG Tablet PO (05:35)
[2019-11-17 05:40] LABS: Absolute Lymphocyte Count 1.11 X10^3/uL (0.83-4.51); Absolute Neutrophil Count 3.1 X10^3/uL (2.0-7.7); Basophil# 0.01 X10^3/uL; Basophil% 0.2 % (0-1); Eosinophil# 0.06 X10^3/uL; Eosinophils% 1.2 % (0-5); Hematocrit 39.2 % (37-47); Hemoglobin 12.4 g/dL (12.0-15.0); Lymphocyte # 1.11 X10^3/ul (4.0); Lymphocyte % 22.3 % (19-41); Mean Corp Hgb Conc 31.6 g/dL (32-36); Mean Corpuscular Hgb 31.2 pg (27.0-32.0); Mean Corpuscular Volume 98.7 fL (81-99); Monocyte# 0.67 X10^3/uL; Monocyte% 13.5 % (0-10); NRBC Flagged by Analyzer 0 % (0-5); Neutrophil # 3.11 X10^3/uL (2.7-7.7); Neutrophil % 62.4 % (47-70); Platelet Count 211 K/mm3 (150-450); RBC Distribution Width CV 12.9 % (11.6-14.6); RBC Distribution Width SD 47.1 fl (35.1-43.9); Red Blood Count 3.97 M/mm3 (4.2-5.4)
--- NOTE | 2019-11-17 05:55 | EKG12_ITS ---
Test Reason : AM EKG Blood Pressure : / mmHG Vent. Rate : 067 BPM Atrial Rate : 067 BPM P-R Int : 152 ms QRS Dur : 082 ms QT Int : 454 ms P-R-T Axes : 048 035 082 degrees QTc Int : 479 ms Normal sinus rhythm Normal ECG When compared with ECG of 16-NOV-2019 09:29, MANUAL COMPARISON REQUIRED, DATA IS UNCONFIRMED Confirmed by MIGUEL GRIMALDO, APRIL ([id number]), electronic news gathering editor TRE MAURICIO ([id number]) on 11/21/2019 3:59:42 PM Referred By: DERICK Confirmed By:APRIL RIVERA MD
[2019-11-17 06:10] LABS: ALB/GLOB Ratio 0.9 RATIO (0.9-2.4); AST(SGOT) 12 U/L (15-37); Alanine Aminotransfer ALT/SGPT 15 U/L (13-56); Alkaline Phosphatase 75 U/L (45-117); Anion Gap 5 (5-15); BUN 17 mg/dL (7-18); BUN/Creat Ratio 21.9 RATIO (10-20); Calcium,Total 8.4 mg/dL (8.5-10.1); Chloride 111 mmol/L (98-107); Creatinine, Serum 0.78 mg/dL (0.55-1.02); EST Glomerular Filtration Rate 78 mL/min (>60); Est Glom Filt Rate - Afr Amer 95 mL/min (>60); Estimated Creatinine Clearance 50.41 ml/min; Globulin 3.3 g/dL (2.2-4.2); Glucose 120 mg/dL (74-106); Potassium 4.1 mmol/L (3.5-5.1); Protein, Total 6.3 g/dL (6.4-8.2); Sodium Level 141 mmol/L (136-145); Thyroid Stim Hormone (TSH) 0.31 uIU/mL (0.358-3.74)
[2019-11-17 06:52] VITALS: BP 107/72; PULSE 74; RESP 18; TEMP 36.7; O2SAT 98
[2019-11-17 07:12] VITALS: PULSE 81
--- NOTE | 2019-11-17 08:00 | STEWCON_ITS ---
Reason For Study: ATRIAL FIB/FLUTTER Stress Results Protocol: Freddy Protocol Maximum Predicted HR: 152 bpm Target HR: 129 bpm % Maximum Predicted HR: 88 % DurationHeart Rate Stage (mm:ss) (bpm) BP Comment BASELINE 72 142/80 STAGE 1 3:00 113 140/70 STAGE 2 2:00 134 / INCREASED SOB,FATIGUE RECOVERY 85 162/88 Stress Duration: 5:00 mm:ss Maximum Stress HR: 134 bpm Baseline Echocardiogram Findings The estimated ejection fraction is 65 %. Stress Echo Wall motion Data Resting WM Intermediate WM Stress WM Resting Wall Motion Wall Motion Stress No regional wall motion No regional wall motion abnormalities noted. abnormalities noted. EKG Data The baseline ECG displays normal sinus rhythm. The patient exercised according to the regular Freddy protocol for a total duration of 5:01. The maximum heart rate attained was 136 beats per minute. This was 89% of maximum predicted heart rate. The patient exercised into stage 2 of the Freddy protocol. During stress, there were no ST or T wave changes noted to suggest ischemia. No clinical angina was noted. No arrhythmias noted. Interpretation Summary The estimated ejection fraction is 65 %. Normal, adequate, treadmill echocardiogram. Negative for ischemia by EKG and echocardiographic criteria. No anginal symptoms noted. No arrhythmias noted. Below average exercise capacity for age. Test terminated due to target heart rate achieved and dyspnea. Final LVEF is 75%. Patient tolerated procedure well. No complications. Ordering Physician: Rob Cano MD Referring Physician: Rob Cano MD Performed By: Thao Renteria, LISE, RVT
[2019-11-17 09:26] VITALS: BP 140/75; PULSE 79; RESP 16; TEMP 36.5; O2SAT 97
[2019-11-17 09:27] VITALS: PULSE 79
[2019-11-17] MEDS: predniSONE 20 MG Tablet 40 MG PO (09:27)
[2019-11-17] MEDS: Acetaminophen 325 MG Tablet 650 MG PO (09:27)
[2019-11-17] MEDS: Metoprolol(XL)Succ 25 MG Tablet PO (09:27)
[2019-11-17 11:05] LABS: T4 Free Direct 0.85 ng/dL (0.76-1.46)
--- NOTE | 2019-11-17 11:42 | PCM.DC ---
- Discharge Diagnoses Current Active Problems: Current Active and Chronic Problems COPD (chronic obstructive pulmonary disease) (Chronic) CAD (coronary artery disease) (Chronic) You will use the following diet at home:: Cardiac Your food should be the consistency of: Regular Your liquids should be the consistency of: Regular/Thin Discharge Activity: Return to Normal Activity, - - avoid all smoking and smoke exposure. Allergies/Adverse Reactions: Allergies levofloxacin [From Levaquin] Allergy (Verified 10/23/19 08:26) Rash phenytoin [From Dilantin] Allergy (Verified 10/23/19 11:09) Swelling Medications to take at Discharge Clopidogrel Bisulfate [Plavix] 75 mg PO DAILY 10/01/18 Apixaban [Eliquis] 5 mg PO BID 04/19/19 Clonazepam 2 mg PO BID 04/19/19 Gabapentin [Neurontin] 600 mg PO TID 04/19/19 Lisinopril [Zestril] 20 mg PO DAILY 04/19/19 traMADol [Ultram] 1 tab PO BID PRN 04/19/19 Albuterol Sulfate [Ventolin Hfa] 2 puff INHALATION Q4H PRN PRN 10/23/19 Acetaminophen [Tylenol Tablet] 650 mg PO Q6H PRN PRN tablet 11/17/19 Guaifenesin Dm [Robitussin Dm] 10 ml PO Q6H PRN PRN #1 udc 11/17/19 Metoprolol(XL)Succ [Toprol Xl (Beta Nia)] 25 mg PO DAILY #30 tab 11/17/19 predniSONE tablet 40 mg PO DAILY@0800 #6 tab 11/17/19 The following prescriptions were given: predniSONE tablet 40 mg PO DAILY@0800 #6 tab Transmission Status: Pending to [address] Guaifenesin Dm [Robitussin Dm] 10 ml PO Q6H PRN PRN #1 udc PRN Reason: Cough Metoprolol(XL)Succ [Toprol Xl (Beta Nia)] 25 mg PO DAILY #30 tab Transmission Status: Pending to [address] Primary Care Physician: Nelida Santana [Primary Care Provider] - Please follow up with your Primary Care Physician in: 1-2 weeks Test Results: Test results from this visit will be discussed in further detail at your follow-up appointment, if applicable. Please Follow Up With: Talon Pineda When: 2 weeks Proposed Discharge Date: 11/17/19
[2019-11-17] MEDS: APIXABAN 5 MG TABLET PO (12:12)
--- NOTE | 2019-11-17 15:21 | PCM.DC.SUM ---
<Abdi Mckeon - Last Filed: 11/17/19 15:21> Discharge Date and Diagnosis Date of Admission: 11/16/19 Date of Discharge: 11/17/19 - Primary Discharge Diagnosis Paroxysmal atrial fibrillation with RVR Chest pain-secondary to pleurisy Acute bronchitis 2/2 to acute viral syndrome - Secondary Discharge Diagnosis Chronic Problems COPD (chronic obstructive pulmonary disease) (Chronic) CAD (coronary artery disease) (Chronic) Hypertension (Chronic) Esophagitis (Chronic) Tobacco abuse (Chronic) Myoclonic disorder (Chronic) Hospital Course and Treatment Imaging Results: RAD/Chest 1 View (Portable) IMPRESSION: Stable chest, no acute cardiopulmonary disease. 2D echo: Interpretation Summary The estimated ejection fraction is 65 %. Stage 1 diastolic dysfunction. Unable to estimate RV systolic pressure due to insufficient tricuspid regurgitant envelope. There is no comparison study available. Stress echo: Interpretation Summary The estimated ejection fraction is 65 %. Normal, adequate, treadmill echocardiogram. Negative for ischemia by EKG and echocardiographic criteria. No anginal symptoms noted. No arrhythmias noted. Below average exercise capacity for age. Test terminated due to target heart rate achieved and dyspnea. Final LVEF is 75%. Patient tolerated procedure well. No complications. Operations: None Procedures: 2-D Echocardiogram, Stress test Summary of Care Provided: Hospital course: The patient is a 69 year old F with past medical history of COPD, heavy nicotine abuse, paroxysmal atrial fibrillation, irritable bowel, hypertension, esophagitis, myoclonic disorder, CAD who presented to the emergency room with complaints of chest pain for 3 days. It was described as a burning midsternal pain radiating to the jaw with associated palpitations and shortness of breath. She had been dealing with a respiratory infection for several weeks. She had a ongoing nonproductive cough which caused her significant chest pain when she was coughing. She also complained of chills, congestion, generalized weakness, and all of her joint pain. She refused a nasal swab as she had had 1 several weeks prior and it caused her severe pain. In the emergency room she was found to have negative troponin, EKG with atrial fibrillation with RVR. She was admitted to the PCU and placed on telemetry. She was started on IV diltiazem. This was transitioned to metoprolol. She was already on Eliquis, this was continued. An echocardiogram was obtained with no acute findings. Cardiology was consulted and recommended stress test. Stress echo was obtained which had no ischemic changes. She was given antitussives and a prednisone burst for her bronchitis. 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 (Rule the patient reverted to normal sinus rhythm with a controlled rate. She was discharged home in stable condition. She will finish a prednisone burst and continued continue to use [id number] antitussives. She will need to follow-up with her PCP in 1 to 2 weeks. She may follow up with her cardiology, Dr. Pineda, in 2 weeks. This patient was seen by Abdi Mckeon PA-C under the supervision of Doctor Tayla. [] - Physical Exam Vitals/I&O's: Vital Signs Temp Pulse Resp BP Pulse Ox 97.7 F L 79 16 140/75 H 97 11/17/19 09:26 11/17/19 09:27 11/17/19 09:26 11/17/19 09:26 11/17/19 09:26 Oxygen Flow Rate (L/min) 2 Oxygen Delivery Method Room Air Weight: 139 lb 1.787 oz Body Mass Index (BMI) 22.4 Intake and Output for Last 24 Hours 11/15/19 11/16/19 11/17/19 23:59 23:59 23:59 Intake Total 360 / 360 Balance 360 / 360 General: Alert, Oriented x3, Cooperative HEENT: Atraumatic, PERRLA, EOMI, Normocephalic Neck: Supple, No JVD, Negative Carotid Bruits Lungs: Clear to auscultation, Diminished Cardiovascular: Regular rate, No murmurs Abdomen: Bowel Sounds Present, Soft, Non Tender Extremities: No edema, Capillary Refill Less than 3 Seconds Skin: No rashes, No breakdown Musculoskeletal: No Tenderness to Palpation of Joints or Extremities Neurological: Cranial nerves II-XII grossly intact Psych/Mental Status: Normal Affect, Appropriate, Alert and oriented to time, place, person, mood and affect Laboratory Results 11/17/19 05:28: WBC 5.0, RBC 3.97 L, Hgb 12.4, Hct 39.2, MCV 98.7, MCH 31.2, MCHC 31.6 L, RDW Std Deviation 47.1 H, RDW Coeff of Claudia 12.9, Plt Count 211, MPV 10.0, Immature Gran % (Auto) 0.400, Neut % (Auto) 62.4, Lymph % (Auto) 22.3, [place] % (Auto) 13.5 H, Eos % (Auto) 1.2, Baso % (Auto) 0.2, Absolute Neuts (auto) 3.1, Absolute Lymphs (auto) 1.11, Nucleated RBC % 0 11/17/19 05:28: Sodium 141, Potassium 4.1, Chloride 111 H, Carbon Dioxide 25.0, Anion Gap 5, BUN 17, Creatinine 0.78, Estim Creat Clear Calc 50.41, Est GFR (MDRD) Af Amer 95, Est GFR (MDRD) Non-Af 78, BUN/Creatinine Ratio 21.9 H, Glucose 120 H, Calcium 8.4 L, Total Bilirubin 0.30, AST 12 L, ALT 15, Alkaline Phosphatase 75, Total Protein 6.3 L, Albumin 3.0 L, Globulin 3.3, Albumin/Globulin Ratio 0.9, TSH 0.31 L 11/17/19 05:28: Free T4 0.85 Discharge Diet: Low fat/ Low Cholesterol, 2000 mg Sodium Diet Discharge Activity: Return to Normal Activity, - - avoid all smoking and smoke exposure. Home Medications: Medications to take at Discharge Clopidogrel Bisulfate [Plavix] 75 mg PO DAILY 10/01/18 Apixaban [Eliquis] 5 mg PO BID 04/19/19 Clonazepam 2 mg PO BID 04/19/19 Gabapentin [Neurontin] 600 mg PO TID 04/19/19 Lisinopril [Zestril] 20 mg PO DAILY 04/19/19 traMADol [Ultram] 1 tab PO BID PRN 04/19/19 Albuterol Sulfate [Ventolin Hfa] 2 puff INHALATION Q4H PRN PRN 10/23/19 Acetaminophen [Tylenol Tablet] 650 mg PO Q6H PRN PRN tab 11/17/19 Guaifenesin Dm [Robitussin Dm] 10 ml PO Q6H PRN PRN #1 udc 11/17/19 Metoprolol(XL)Succ [Toprol Xl (Beta Nia)] 25 mg PO DAILY #30 tab 03/05/20 predniSONE tablet 40 mg PO DAILY@0800 #6 tab 11/17/19 Following Prescrptions Were Given to Patient: predniSONE tablet 40 mg PO DAILY@0800 #6 tab Transmission Status: Received by [address] Guaifenesin Dm [Robitussin Dm] 10 ml PO Q6H PRN PRN #1 udc PRN Reason: Cough Metoprolol(XL)Succ [Toprol Xl (Beta Nia)] 25 mg PO DAILY #30 tab Transmission Status: Received by [address] Primary Care Physician: Nelida Santana [Primary Care Provider] - Please follow up with your Primary Care Physician in: 1-2 weeks Please Follow Up With: Talon Pineda When: 2 weeks Disposition: Home Minutes spent on discharge:: 35 Patient Condition:: Stable Medical Necessity - Tobacco Use Smoking Status: Heavy Smoker (>10/day) Tobacco Use: Cigarettes Meaningful Use Info Meaningful Use Diagnoses (Choose all that apply): None applicable <Luis Bourne - Last Filed: 11/17/19 15:42> Discharge Date and Diagnosis - Secondary Discharge Diagnosis Chronic Problems COPD (chronic obstructive pulmonary disease) (Chronic) CAD (coronary artery disease) (Chronic) Hypertension (Chronic) Esophagitis (Chronic) Tobacco abuse (Chronic) Myoclonic disorder (Chronic) Hospital Course and Treatment Imaging Results: 11/17/19 08:00 Stress Test Echo W/Contrast [ECHO] Routine Operations: None Procedures: 2-D Echocardiogram, Stress test Summary of Care Provided: Patient seen and examined independently. Data reviewed. I agree with the above note by the physician business banking sales assistant. The patient is a 69 year old F presents with palpitations chest pain. Patient was found a atrial fibrillation with RVR. Patient was on IV diltiazem transition over to metoprolol where she remained rate controlled. Echocardiogram was unremarkable. Patient was having some chest pain as well and underwent a stress test that was unremarkable. [] - Physical Exam Vitals/I&O's: Vital Signs Temp Pulse Resp BP Pulse Ox 36.5 C L 79 16 140/75 H 97 11/17/19 09:26 11/17/19 09:27 11/17/19 09:26 11/17/19 09:26 11/17/19 09:26 Oxygen Flow Rate (L/min) 2 Oxygen Delivery Method Room Air Weight: 63.1 kg Body Mass Index (BMI) 22.4 Intake and Output for Last 24 Hours 11/15/19 11/16/19 11/17/19 23:59 23:59 23:59 Intake Total Balance General: Alert, Cooperative HEENT: Atraumatic, Normocephalic Neck: No Nodes, Trachea Midline Lungs: Clear to auscultation, Diminished Cardiovascular: Regular rate, No murmurs Abdomen: Bowel Sounds Present, Non Tender Extremities: No edema, No Calf Tenderness Skin: No rashes, No breakdown Musculoskeletal: No Tenderness to Palpation of Joints or Extremities Psych/Mental Status: Normal Affect, Appropriate Laboratory Results 11/17/19 05:28: WBC 5.0, RBC 3.97 L, Hgb 12.4, Hct 39.2, MCV 98.7, MCH 31.2, MCHC 31.6 L, RDW Std Deviation 47.1 H, RDW Coeff of Claudia 12.9, Plt Count 211, MPV 10.0, Immature Gran % (Auto) 0.400, Neut % (Auto) 62.4, Lymph % (Auto) 22.3, [place]ow % (Auto) 13.5 H, Eos % (Auto) 1.2, Baso % (Auto) 0.2, Absolute Neuts (auto) 3.1, Absolute Lymphs (auto) 1.11, Nucleated RBC % 0 11/17/19 05:28: Sodium 141, Potassium 4.1, Chloride 111 H, Carbon Dioxide 25.0, Anion Gap 5, BUN 17, Creatinine 0.78, Estim Creat Clear Calc 50.41, Est GFR (MDRD) Af Amer 95, Est GFR (MDRD) Non-Af 78, BUN/Creatinine Ratio 21.9 H, Glucose 120 H, Calcium 8.4 L, Total Bilirubin 0.30, AST 12 L, ALT 15, Alkaline Phosphatase 75, Total Protein 6.3 L, Albumin 3.0 L, Globulin 3.3, Albumin/Globulin Ratio 0.9, TSH 0.31 L 11/17/19 05:28: Free T4 0.85 Discharge Diet: Low fat/ Low Cholesterol, 2000 mg Sodium Diet Discharge Activity: Return to Normal Activity, - Disposition: Home Minutes spent on discharge:: 35 Patient Condition:: Stable Medical Necessity - Tobacco Use Smoking Status: Heavy Smoker (>10/day) Tobacco Use: Cigarettes Meaningful Use Info Meaningful Use Diagnoses (Choose all that apply): None applicable OBSV E&M: 04182 Observation care discharge
== END 2019-11-17 12:31 | disposition home or self-care (01) | DRG 309 ==
LOC: ED 07:15 → PCU 11-17 00:43
PROVIDERS: Physician Assistant; Emergency Provider Emergency Medicine; PCP Family Medicine
DX: I48.0 Paroxysmal atrial fibrillation (principal); J44.0 Chronic obstructive pulmonary disease with (acute) lower respiratory infection; J20.8 Acute bronchitis due to other specified organisms; I25.10 Atherosclerotic heart disease of native coronary artery without angina pectoris; G25.3 Myoclonus; I10 Essential (primary) hypertension; E78.5 Hyperlipidemia, unspecified; F17.210 Nicotine dependence, cigarettes, uncomplicated; R09.1 Pleurisy; Z79.01 Long term (current) use of anticoagulants; K20.9 Esophagitis, unspecified
CPT/HCPCS: 36415; 71045; 80048; 80053; 84439; 84443; 84484; 85025; 93005; 93017; 93306; 93350; 99285; 99406; J7030; Q9957; A4216; C8928; J2405

== ENCOUNTER 2020-06-11 10:59 | Emergency (ER) | payer MEDICARE, SELFPAY ==
[2019-11-16 08:05] VITALS: BMI 22.4
[2020-06-11] VITALS (7 sets, daily range): BP systolic 92–157; BP diastolic 58–102; PULSE 53–163; RESP 16–20; TEMP 36.6; O2SAT 96–98; BMI 22.1
--- NOTE | 2020-06-11 11:18 | RAD_ITS ---
STUDY: X-RAY CHEST REASON FOR EXAM: Female, 69 years old. Cp, sob, cough. Negative covid test x 2 days TECHNIQUE: Single AP portable view of the chest. COMPARISON: Comparison is made with prior study dated 11/16/2019. FINDINGS: EKG electrodes are seen. Stable increased markings at the lung bases suggestive of mild scarring. Hyperinflation. There is no demonstrated pleural abnormality. There is borderline cardiomegaly. Normal mediastinum and sheron. Normal visualized pulmonary arteries. There is atherosclerotic calcification of the aortic arch with tortuosity. There are diffuse degenerative changes of the visualized thoracic spine. There is degenerative osteoarthritis of the bilateral shoulders. There is no demonstrated abnormality of the visualized soft tissue structures of the upper abdomen. RAD/Chest 1 View (Portable) IMPRESSION: Hyperinflation. Stable mild increased markings at the lung bases suggestive of scarring. Electronically Signed: Casa Livingston, at 12:03 EDT , Service support ,
--- NOTE | 2020-06-11 11:18 | EKG12_ITS ---
Test Reason : CP Blood Pressure : / mmHG Vent. Rate : 180 BPM Atrial Rate : 197 BPM P-R Int : 000 ms QRS Dur : 074 ms QT Int : 240 ms P-R-T Axes : 000 054 206 degrees QTc Int : 415 ms Atrial fibrillation with rapid ventricular response Marked ST abnormality, possible inferior subendocardial injury Abnormal ECG Confirmed by MIGUEL GRIMALDO, APRIL ([id number]), video tape editor [facility] ([id number]) on 06/13/2020 8:28:59 AM Referred By: Areli Dominguez Confirmed By:APRIL RIVERA MD
--- NOTE | 2020-06-11 11:25 | ED.DCSUM_ITS ---
History of Present Illness Chief Complaint: Chest Pain Informant: Patient, Family Narrative: Patient comes to the emergency room with a chief complaint of A. fib. She has a history of paroxysmal A. fib as well as coronary artery disease. She takes Plavix and Eliquis. She states that she has missed doses of Eliquis recently. Heavy smoker. She states that last night she felt poorly this morning developed her typical burning in the chest and heart racing. She sees Dr. Pineda with [facility] for cardiology. In addition to missing some doses of Eliquis she is not sure if she is taking her metoprolol. - Past Medical History (1) Atrial fibrillation with RVR Status: Chronic (2) CAD (coronary artery disease) Status: Chronic (3) COPD (chronic obstructive pulmonary disease) Status: Chronic (4) Esophagitis Status: Chronic (5) Hypertension Status: Chronic (6) Myoclonic disorder Status: Chronic (7) Tobacco abuse Status: Chronic (8) Irritable bowel Status: Suspected Past Medical History - Allergies and Home Meds Allergies/Adverse Reactions: Allergies levofloxacin [From Levaquin] Allergy (Verified 06/11/20 11:00) Rash phenytoin [From Dilantin] Allergy (Verified 06/11/20 11:00) Swelling Primary Care Physician: Nelida Santana [Primary Care Provider] - Prior records reviewed: Yes Surgical History: adenoidectomy, hysterectomy, tonsillectomy, - - Cyst removal Smoking Status: Current every day smoker Drugs: None - Family History Maternal Family History: Reports: Heart Disease, Stroke Paternal Family History: Reports: Cancer - Laryngeal, Heart Disease Review of Systems General: Reports: Malaise. Denies: Chills, Fever, Sweats Eyes: Denies: Visual changes - bilaterally, Diplopia ENT: Denies: Rhinorrhea, Sore throat Cardiovascular: Reports: Chest pain, Palpitations, Heart racing Respiratory: Reports: Dyspnea. Denies: Cough, Dyspnea on exertion Gastrointestinal: Denies: Abdominal pain, Nausea, Vomiting, Diarrhea, Melena, Hematochezia Genitourinary: Denies: Dysuria, Hematuria, Frequency Musculoskeletal: Denies: Back pain, Extremity Pain Skin: Denies: Rash, Wounds Neurological: Denies: Headache, Weakness, Numbness Psych: Denies: Suicidal thoughts, Suicidal ideations Physical Exam Vital Signs/Narrative: Vital Signs Temp Pulse Resp BP Pulse Ox 06/11/20 11:07 98 F 163 H 19 H 157/102 H 98 06/11/20 11:00 98 F 163 H 19 H 157/102 H 98 Inital Vital Signs reviewed: Yes General: Well nourished, Well developed, No Acute Distress Head: Normocephalic, Atraumatic Eyes: Perrl, EOMI ENT: Moist mucous membranes, No rhinorrhea Neck: Supple, Nontender Cardiovascular: No murmurs, Irregular, Tachycardia Respiratory: No distress, CTA bilaterally, Chest nontender Abdomen: Soft, Nontender, Nondistended, Normal bowel sounds Back: Nontender, Normal Inspection Extremities: Nontender, No edema Skin: Normal color, No rash Neurological: Alert, Oriented x3, Cranial nerves II-XII grossly intact, Normal Strength, Normal Sensation Psychological: - - Anxious Diagnostic/Tx/Re-eval Clinical Impression(s) from Imaging Studies Chest X-Ray 06/11/20 11:18 IMPRESSION: Hyperinflation. Stable mild increased markings at the lung bases suggestive of scarring. Electronically Signed: Casa Livingston, at 12:03 EDT , Service support , Laboratory Last Values WBC 9.2 K/mm3 (4.4-11.0) 06/11/20 11:08 RBC 4.55 M/mm3 (4.2-5.4) 06/11/20 11:08 Hgb 14.2 g/dL (12.0-15.0) 06/11/20 11:08 Hct 45.1 % (37-47) 06/11/20 11:08 MCV 99.1 fL (81-99) H 06/11/20 11:08 MCH 31.2 pg (27.0-32.0) 06/11/20 11:08 MCHC 31.5 g/dL (32-36) L 06/11/20 11:08 RDW Std Deviation 48.0 fl (35.1-43.9) H 06/11/20 11:08 RDW Coeff of Claudia 13.2 % (11.6-14.6) 06/11/20 11:08 Plt Count 329 K/mm3 (150-450) 06/11/20 11:08 MPV 10.4 fl (6.2-12.0) 06/11/20 11:08 Immature Gran % (Auto) 0.400 % (0.0-0.9) 06/11/20 11:08 Neut % (Auto) 71.5 % (47-70) H 06/11/20 11:08 Lymph % (Auto) 18.8 % (19-41) L 06/11/20 11:08 [place] % (Auto) 6.9 % (0-10) 06/11/20 11:08 Eos % (Auto) 1.6 % (0-5) 06/11/20 11:08 Baso % (Auto) 0.8 % (0-1) 06/11/20 11:08 Absolute Neuts (auto) 6.6 X10^3/uL (2.0-7.7) 06/11/20 11:08 Absolute Lymphs (auto) 1.73 X10^3/uL (0.83-4.51) 06/11/20 11:08 Nucleated RBC % 0 % (0-5) 06/11/20 11:08 PT 12.0 SECONDS (11.7-14.9) 06/11/20 11:08 INR 0.9 06/11/20 11:08 APTT 28.3 Seconds (24.1-36.2) 06/11/20 11:08 Sodium 141 mmol/L (136-145) 06/11/20 11:08 Potassium 4.0 mmol/L (3.5-5.1) 06/11/20 11:08 Chloride 111 mmol/L (98-107) H 06/11/20 11:08 Carbon Dioxide 25.0 mmol/L (21.0-32.0) 06/11/20 11:08 Anion Gap 5 (5-15) 06/11/20 11:08 BUN 13 mg/dL (7-18) 06/11/20 11:08 Creatinine 0.82 mg/dL (0.55-1.02) 06/11/20 11:08 Estim Creat Clear Calc 63.85 ml/min 06/11/20 11:08 Est GFR (MDRD) Af Amer 88 mL/min (>60) 06/11/20 11:08 Est GFR (MDRD) Non-Af 73 mL/min (>60) 06/11/20 11:08 BUN/Creatinine Ratio 15.8 RATIO (10-20) 06/11/20 11:08 Glucose 119 mg/dL (74-106) H 06/11/20 11:08 Calcium 9.2 mg/dL (8.5-10.1) 06/11/20 11:08 Magnesium 2.1 mg/dL (1.6-2.6) 06/11/20 11:08 Total Bilirubin 0.50 mg/dL (0.20-1.00) 06/11/20 11:08 AST 16 U/L (15-37) 06/11/20 11:08 ALT 18 U/L (13-56) 06/11/20 11:08 Alkaline Phosphatase 86 U/L (45-117) 06/11/20 11:08 Troponin I 0.022 ng/mL (<0.045) 06/11/20 11:08 Total Protein 7.8 g/dL (6.4-8.2) 06/11/20 11:08 Albumin 4.0 g/dL (3.2-5.0) 06/11/20 11:08 Globulin 3.8 g/dL (2.2-4.2) 06/11/20 11:08 Albumin/Globulin Ratio 1.1 RATIO (0.9-2.4) 06/11/20 11:08 - EKG Initial EKG Interpretation: Atrial Fibrillation - EKG demonstrates atrial fibrillation with rapid ventricular response at a rate of 180. - Medical Decision Making Patient received 20 mg of Cardizem which did not really affect her rate. I gave her 5 mg of metoprolol brought her rate down to 110-120 and she was placed on a Cardizem drip. plan is going to be admission into the hospital. Shortly after discussion with the hospitalist the patient converted to a normal sinus rhythm. Patient will be observed. In reviewing her home medications she was on metoprolol but states she has not been taking it. She will think she has it at home but is unsure. I advised her she needs to call her automobile repossessor in [place] and asked them what medication she is supposed to be on for her A. fib and take those medicines as prescribed. I spoke with the nurse from Dr. Pineda's office. She is supposed to be taking metoprolol 100 mg once a day. Should she not have this prescription at home I will write a prescription for 1. ED Disposition - Plan for ED Patient: Disposition: Home or Assisted Living Diagnosis: Atrial fibrillation with RVR Instructions: ED AFIB Prescriptions: Metoprolol Succinate [Toprol Xl] 100 mg PO DAILY #30 tab.er.24h Prescription Printed Additional Instructions: You need to call your automobile repossessor for follow-up. According to their office you should be taking metoprolol 100 mg once a day. Please check your pill bottles at home and ensure that you are taking this.
[2020-06-11] MEDS: dilTIAZem 25 MG/5 ML Vial 20 MG IV BOLUS (11:29)
[2020-06-11 11:33] LABS: Absolute Lymphocyte Count 1.73 X10^3/uL (0.83-4.51); Absolute Neutrophil Count 6.6 X10^3/uL (2.0-7.7); Basophil# 0.07 X10^3/uL; Basophil% 0.8 % (0-1); Eosinophil# 0.15 X10^3/uL; Eosinophils% 1.6 % (0-5); Hematocrit 45.1 % (37-47); Hemoglobin 14.2 g/dL (12.0-15.0); Lymphocyte # 1.73 X10^3/ul (4.0); Lymphocyte % 18.8 % (19-41); Mean Corp Hgb Conc 31.5 g/dL (32-36); Mean Corpuscular Hgb 31.2 pg (27.0-32.0); Mean Corpuscular Volume 99.1 fL (81-99); Mean Platelet Vol. 10.4 fl (6.2-12.0); Monocyte# 0.63 X10^3/uL; Monocyte% 6.9 % (0-10); NRBC Flagged by Analyzer 0 % (0-5); Neutrophil # 6.57 X10^3/uL (2.7-7.7); Neutrophil % 71.5 % (47-70); Platelet Count 329 K/mm3 (150-450); RBC Distribution Width CV 13.2 % (11.6-14.6); Red Blood Count 4.55 M/mm3 (4.2-5.4); White Blood Count 9.2 K/mm3 (4.4-11.0)
[2020-06-11 11:42] LABS: International Normalized Ratio 0.9
[2020-06-11 11:43] LABS: Partial Thromboplast Time 28.3 Seconds (24.1-36.2)
[2020-06-11 11:50] LABS: ALB/GLOB Ratio 1.1 RATIO (0.9-2.4); AST(SGOT) 16 U/L (15-37); Alanine Aminotransfer ALT/SGPT 18 U/L (13-56); Alkaline Phosphatase 86 U/L (45-117); Anion Gap 5 (5-15); BUN 13 mg/dL (7-18); BUN/Creat Ratio 15.8 RATIO (10-20); Calcium,Total 9.2 mg/dL (8.5-10.1); Chloride 111 mmol/L (98-107); Creatinine, Serum 0.82 mg/dL (0.55-1.02); EST Glomerular Filtration Rate 73 mL/min (>60); Est Glom Filt Rate - Afr Amer 88 mL/min (>60); Estimated Creatinine Clearance 63.85 ml/min; Globulin 3.8 g/dL (2.2-4.2); Glucose 119 mg/dL (74-106); Magnesium 2.1 mg/dL (1.6-2.6); Protein, Total 7.8 g/dL (6.4-8.2); Sodium Level 141 mmol/L (136-145)
[2020-06-11] MEDS: Metoprolol Tartrate 5 MG/5 ML Vial IV (12:36)
--- NOTE | 2020-06-11 12:54 | NURSING ---
HOSPITALIST PAGED DR ESPINOZA, OB DR SEGURA
--- NOTE | 2020-06-11 13:06 | ED.RN ---
PT CONVERTED TO SINUS BRADYCARDIA. CARDIZEM STOPPED, DR. PETERSON AWARE.
--- NOTE | 2020-06-11 13:08 | EKG12_ITS ---
Test Reason : REPEAT Blood Pressure : / mmHG Vent. Rate : 086 BPM Atrial Rate : 086 BPM P-R Int : 128 ms QRS Dur : 084 ms QT Int : 462 ms P-R-T Axes : 057 018 077 degrees QTc Int : 552 ms Normal sinus rhythm with sinus arrhythmia Prolonged QT Abnormal ECG Confirmed by MIGUEL GRIMALDO, APRIL ([id number]), news assignment editor [facility] ([id number]) on 06/13/2020 8:28:39 AM Referred By: Areli Dominguez Confirmed By:APRIL RIVERA MD
--- NOTE | 2020-06-11 14:01 | ED.RN ---
REVIEWED D/C INSTRUCTIONS, FOLLOW UP CARE, PRESCRIPTION, AND S/S THAT WOULD WARRANT A RETURN TO THE ED WITH PT. PT VERBALIZED AN UNDERSTANDING AN DENIES FURTHER QUESTIONS FOR THIS RN. PT SKIN P/W/D, RESP EVEN AND UNLABORED, PT A&O X 3, NO DISTRESS NOTED. PT AMBULATED OUT OF ED, GAIT STEADY.
== END 2020-06-11 14:02 | disposition home or self-care (01) ==
LOC: ED 13:01 → PCU 13:09
PROVIDERS: Emergency Provider Emergency Medicine; PCP Family Medicine; Referring Provider Internal Medicine; Visit Provider Internal Medicine
DX: I48.0 Paroxysmal atrial fibrillation (principal); I10 Essential (primary) hypertension; Z91.14 Patient's other noncompliance with medication regimen; G25.3 Myoclonus; I25.10 Atherosclerotic heart disease of native coronary artery without angina pectoris; J44.9 Chronic obstructive pulmonary disease, unspecified; Z87.19 Personal history of other diseases of the digestive system; Z79.01 Long term (current) use of anticoagulants; Z79.02 Long term (current) use of antithrombotics/antiplatelets; Z79.899 Other long term (current) drug therapy; F17.200 Nicotine dependence, unspecified, uncomplicated
CPT/HCPCS: 71045; 80053; 83735; 84484; 85025; 85610; 85730; 93005; 96374; 96375; 99285; J7030

== ENCOUNTER 2020-08-08 23:13 | Emergency (ER) | payer MEDICARE, SELFPAY ==
[2020-06-11 11:00] VITALS: BMI 22.1
[2020-08-08 23:18] VITALS: BP 121/80; PULSE 170; RESP 16; TEMP 36.3; O2SAT 98; BMI 23.8
--- NOTE | 2020-08-08 23:24 | EKG12_ITS ---
Test Reason : CP Blood Pressure : / mmHG Vent. Rate : 170 BPM Atrial Rate : 258 BPM P-R Int : 000 ms QRS Dur : 076 ms QT Int : 272 ms P-R-T Axes : 000 023 204 degrees QTc Int : 457 ms Atrial fibrillation with rapid ventricular response with premature ventricular or aberrantly conducte d complexes Marked ST abnormality, possible inferior subendocardial injury Abnormal ECG Confirmed by APRIL RIVERA MD ([id number]), editor publications [facility] ([id number]) on 08/10/2020 11:11:38 AM Referred By: ADELAIDA Confirmed By:APRIL RIVERA MD
--- NOTE | 2020-08-08 23:25 | ED.DCSUM_ITS ---
- ER Visit Summary Date of Service: 08/08/20 Chief Complaint: Chest pain, palpitations History of Present Illness: The patient is a 70 F who presents with chest pain and palpitations. She states it started about 1 hour ago. She went to get a shower when she started feeling some burning in her chest. She felt like she flipped into atrial fibrillation again. She has a history of this. She is on Plavix but no other anticoagulants. She believes that she is normally in a sinus rhythm. She felt dizzy and nauseous. She has no shortness of breath. She has had a decreased appetite recently however she has been drinking a lot of coffee. Her painter assistant is Dr. Bey in [place] Physical Examination: Vital signs reviewed. HEENT exam unremarkable. Heart is irregularly irregular and tachycardic rhythm without murmurs. Lungs are clear to auscultation. Abdomen is soft and nontender. Extremities reveal no edema. Peripheral pulses are equal. Skin exam normal. Neurologic exam normal. Test Results: EKG was atrial fibrillation with a rate of 170. Nonspecific ST and T wave changes noted. Chest x-ray shows chronic changes per my and radiologist rotation. Laboratory studies are unremarkable except for chloride of 111, glucose 152 and a troponin of 0.024. Emergency Department Course and Treatment: The patient was given 20 g of Cardizem and 2 doses of metoprolol IV without conversion. I then started her on a Cardizem drip. The patient then converted to a sinus rhythm with rate of 60 shortly after the start of the Cardizem drip. The patient is adamant she does not want to stay in the hospital. I kept her on the Cardizem drip for about 1 hour. I gave her 1 oral dose of Toprol-XL. I again reiterated that she should be admitted to the hospital but she still would like to go home. I feel that now that she is converted she can be discharged home. She states that she will call her doctor tomorrow as well as her painter assistant Treatment Plan: [] Disposition: Discharge Impression: Atrial fibrillation with RVR This note was generated with [employer] software. It may contain incorrect words, spelling, and punctuation that were not noted in review of the chart prior to signing ED Disposition - Plan for ED Patient: Disposition: Home or Assisted Living Instructions: ED AFIB Referrals: Nelida Santana [Primary Care Provider] -
[2020-08-08 23:27] VITALS: O2SAT 95
[2020-08-08] MEDS: Aspirin 81 MG TAB.CHEW 324 MG PO (23:29)
[2020-08-08] MEDS: dilTIAZem 25 MG/5 ML Vial 20 MG IV BOLUS (23:30)
[2020-08-08 23:39] VITALS: BP 115/76; PULSE 126; RESP 18; O2SAT 93
--- NOTE | 2020-08-08 23:40 | RAD_ITS ---
STUDY: X-RAY CHEST REASON FOR EXAM: Female, 70 years old. Chest pain, a-fib TECHNIQUE: Single AP portable view of the chest. COMPARISON: 06/11/2020. FINDINGS: Stable areas of hyperinflation and mild interstitial prominence, linear changes in the left base consistent with scarring. The lungs are clear and expanded. There is no demonstrated pleural abnormality. Normal size heart. Normal mediastinum and sheron. Normal visualized pulmonary arteries. Normal visualized aortic arch and descending thoracic aorta. There is demineralization of the osseous structures. Normal visualized ribs, clavicles, and shoulders. There is no demonstrated abnormality of the visualized soft tissue structures of the upper abdomen. RAD/Chest 1 View (Portable) IMPRESSION: Stable hyperinflation, chronic lung disease, scarring in the left base. No pulmonary edema, congestive heart failure or confluent pneumonia. Electronically Signed: Jessika Ham MD at 0:16 EST , Service support ,
[2020-08-08 23:43] LABS: Absolute Neutrophil Count 7.3 X10^3/uL (2.0-7.7); Basophil# 0.05 X10^3/uL; Basophil% 0.5 % (0-1); Eosinophil# 0.19 X10^3/uL; Eosinophils% 1.9 % (0-5); Lymphocyte % 17.1 % (19-41); Mean Corp Hgb Conc 31.7 g/dL (32-36); Mean Corpuscular Hgb 31.4 pg (27.0-32.0); Mean Platelet Vol. 10.7 fl (6.2-12.0); Monocyte# 0.65 X10^3/uL; Monocyte% 6.5 % (0-10); NRBC Flagged by Analyzer 0 % (0-5); Neutrophil % 73.6 % (47-70); Platelet Count 245 K/mm3 (150-450); RBC Distribution Width CV 13.1 % (11.6-14.6); RBC Distribution Width SD 47.5 fl (35.1-43.9); Red Blood Count 4.14 M/mm3 (4.2-5.4); White Blood Count 9.9 K/mm3 (4.4-11.0)
[2020-08-09] VITALS (12 sets, daily range): BP systolic 96–127; BP diastolic 64–89; PULSE 58–128; RESP 15–21; O2SAT 94–96
[2020-08-09 00:10] LABS: Anion Gap 7 (5-15); BUN 18 mg/dL (7-18); BUN/Creat Ratio 22.7 RATIO (10-20); Calcium,Total 9.4 mg/dL (8.5-10.1); Chloride 111 mmol/L (98-107); Creatinine, Serum 0.79 mg/dL (0.55-1.02); EST Glomerular Filtration Rate 76 mL/min (>60); Est Glom Filt Rate - Afr Amer 92 mL/min (>60); Glucose 152 mg/dL (74-106); Potassium 3.7 mmol/L (3.5-5.1); Sodium Level 143 mmol/L (136-145)
[2020-08-09] MEDS: Metoprolol Tartrate 5 MG/5 ML Vial IV ×2 (00:10→01:07)
--- NOTE | 2020-08-09 00:24 | ED.RN ---
daughter called and updated on condition at this time
[2020-08-09] MEDS: Metoprolol(XL)Succ 100 MG Tablet PO (03:29)
== END 2020-08-09 03:35 | disposition home or self-care (01) ==
PROVIDERS: Emergency Provider Emergency Medicine; PCP Family Medicine
DX: I48.91 Unspecified atrial fibrillation (principal); I10 Essential (primary) hypertension; I25.10 Atherosclerotic heart disease of native coronary artery without angina pectoris; J44.9 Chronic obstructive pulmonary disease, unspecified; Z79.02 Long term (current) use of antithrombotics/antiplatelets; Z79.899 Other long term (current) drug therapy; Z72.0 Tobacco use
CPT/HCPCS: 71045; 80048; 84484; 85025; 93005; 96365; 96374; 96376; 99285; A4216

== ENCOUNTER 2021-01-07 17:36 | Observation (INO) | payer MEDICARE, SELFPAY ==
[2021-01-07] VITALS (19 sets, daily range): BP systolic 95–157; BP diastolic 63–94; PULSE 102–188; RESP 12–22; TEMP 36.6–37.1; O2SAT 87–98; BMI 23.3
--- NOTE | 2021-01-07 17:52 | US_ITS ---
STUDY: ABDOMINAL ULTRASOUND - RIGHT UPPER QUADRANT REASON FOR VISIT: Female, 70 years old. Pain TECHNIQUE: Ultrasound evaluation of the right upper quadrant was performed with real-time and static benito-scale imaging. TECHNICAL QUALITY: Adequate. COMPARISON: None. FINDINGS: Liver: The liver measures 14.1 cm. There is normal echogenicity of the liver. The bile ducts are within normal limits. There is hepatic color flow. The direction of portal flow is hepatopetal. There is no demonstrated mass lesion. Gallbladder: Normal distended gallbladder. The gallbladder wall measures 2 mm. There is a negative sonographic Mcneil''s sign. There is no pericholecystic fluid. There are no gallstones. Common Bile Duct (C.B.D.): The common bile duct measures 4.5 mm. Pancreas: Normal size of the head, body and tail of the pancreas. There is normal echogenicity of the pancreas. There is no demonstrated pancreatic mass or cyst. Right Kidney: Normal size of the right kidney. The right kidney measures 10.5 x 5.3 x 4.2 cm. Normal renal cortex. The right cortex measures 1.5 cm. There is a 1.5 cm cyst. There is no right hydronephrosis. US/Gallbladder IMPRESSION: Normal right upper quadrant ultrasound examination. Electronically Signed: Ro Dunn MD at 20:09 EDT Tel , Service support ,
--- NOTE | 2021-01-07 17:52 | EKG12_ITS ---
Test Reason : PALPS Blood Pressure : / mmHG Vent. Rate : 178 BPM Atrial Rate : 357 BPM P-R Int : 000 ms QRS Dur : 080 ms QT Int : 264 ms P-R-T Axes : 000 045 133 degrees QTc Int : 454 ms Atrial fibrillation Nonspecific ST abnormality Abnormal ECG Confirmed by LOGAN GRIMALDO, LEIA ([id number]), publication editor [facility] ([id number]) on 01/10/2021 8:59:14 AM Referred By: SHANI Confirmed By:LEIA FORD MD
--- NOTE | 2021-01-07 17:53 | CT_ITS ---
INDICATION: Upper abd pain -- IV PO Contrast EXAMINATION: CT Abdomen And Pelvis W/ Contrast Injection TECHNIQUE: Helically acquired images were obtained of the abdomen and pelvis after IV contrast. A radiation dose optimization technique was used for this scan. IV Contrast dosage and agent: 100 cc [id number] Oral contrast: Yes COMPARISON: None. FINDINGS: Visualized lung bases: Scarring and atelectasis in the lung bases. There is a 4 mm pulmonary nodule in the right middle lung. Liver: Unremarkable Gallbladder: Unremarkable Spleen: Unremarkable Pancreas: Unremarkable Adrenal Glands: Unremarkable Kidneys: 3.2 cm simple cyst in the left midpole. 1.5 cm simple cyst in the right lower pole. Vasculature: Severe aortoiliac atherosclerotic disease. GI Tract: Scattered colonic diverticula. There is circumferential wall thickening of the mid to distal sigmoid colon with surrounding mesenteric fat stranding. No definite free air. There is trace free fluid in the pelvis. No focal fluid collection. Lymphadenopathy: None Peritoneum: Trace free fluid in the pelvis. Bladder: Unremarkable Reproductive organs: Small left inguinal fat-containing hernia. Bones/Soft tissues: Mild scattered degenerative changes of the visualized spine. CT/Abdomen/Pelvis WITH Contrast IMPRESSION: Acute sigmoid diverticulitis. No free air or focal fluid collection. 4 mm pulmonary nodule in the right middle lobe. An optional follow-up chest CT in one year may be obtained. Small left inguinal fat-containing hernia. Electronically Signed: Arnold Jaffe MD at 21:36 EDT Tel , Service support ,
[2021-01-07] MEDS: Ondansetron 4 MG/2 ML Vial IV (18:13)
[2021-01-07] MEDS: 0.9% Normal Saline 1,000 ML 1000 ML IV ×2 (18:13→19:50)
[2021-01-07] MEDS: Aspirin 81 MG TAB.CHEW 324 MG PO (18:13)
[2021-01-07] MEDS: Morphine 4 MG/ML Syringe IV (18:13)
[2021-01-07] MEDS: dilTIAZem 25 MG/5 ML Vial 20 MG IV BOLUS (18:13)
--- NOTE | 2021-01-07 18:25 | RAD_ITS ---
STUDY: X-RAY CHEST REASON FOR EXAM: Female, 70 years old. Cough TECHNIQUE: Frontal portable view of the chest COMPARISON: [address], 08 August 2020 chest x-ray FINDINGS: Appearance is stable since prior. Lungs are moderately hyperinflated stable basal bilateral scars. There is no pneumothorax, pulmonary edema or pleural effusions. The heart size is normal. Osseous structures are intact. RAD/Chest 1 View (Portable) IMPRESSION: No acute findings. Mild to moderate emphysema. Electronically Signed: Ro Dunn MD at 19:03 EDT Tel , Service support ,
[2021-01-07 18:26] LABS: Absolute Lymphocyte Count 1.05 X10^3/uL (0.83-4.51); Absolute Neutrophil Count 9.8 X10^3/uL (2.0-7.7); Basophil# 0.05 X10^3/uL; Basophil% 0.4 % (0-1); Eosinophil# 0.05 X10^3/uL; Eosinophils% 0.4 % (0-5); Hematocrit 43.3 % (37-47); Hemoglobin 13.7 g/dL (12.0-15.0); Lymphocyte # 1.05 X10^3/ul (0.83-4.51); Lymphocyte % 8.9 % (19-41); Mean Corp Hgb Conc 31.6 g/dL (32-36); Mean Corpuscular Hgb 30.9 pg (27.0-32.0); Mean Corpuscular Volume 97.7 fL (81-99); Mean Platelet Vol. 10.7 fl (6.2-12.0); Monocyte# 0.75 X10^3/uL; Monocyte% 6.4 % (0-10); NRBC Flagged by Analyzer 0 % (0-5); Neutrophil # 9.81 X10^3/uL (2.7-7.7); Neutrophil % 83.6 % (47-70); Platelet Count 295 K/mm3 (150-450); RBC Distribution Width CV 12.8 % (11.6-14.6); RBC Distribution Width SD 46.3 fl (35.1-43.9); Red Blood Count 4.43 M/mm3 (4.2-5.4); White Blood Count 11.8 K/mm3 (4.4-11.0)
[2021-01-07] MEDS: dilTIAZem 25 MG/5 ML Vial IV BOLUS (18:43)
[2021-01-07 18:47] LABS: ALB/GLOB Ratio 0.8 RATIO (0.9-2.4); AST(SGOT) 8 U/L (15-37); Alanine Aminotransfer ALT/SGPT 15 U/L (13-56); Albumin, Serum 3.7 g/dL (3.2-5.0); Alkaline Phosphatase 114 U/L (45-117); Anion Gap 10 (5-15); BUN 13 mg/dL (7-18); BUN/Creat Ratio 16.6 RATIO (10-20); Calcium,Total 9.1 mg/dL (8.5-10.1); Chloride 102 mmol/L (98-107); Creatinine, Serum 0.78 mg/dL (0.55-1.02); EST Glomerular Filtration Rate 78 mL/min (>60); Est Glom Filt Rate - Afr Amer 94 mL/min (>60); Globulin 4.4 g/dL (2.2-4.2); Glucose 123 mg/dL (74-106); Lipase 45 U/L (73-393); Protein, Total 8.1 g/dL (6.4-8.2); Sodium Level 137 mmol/L (136-145)
[2021-01-07 19:00] LABS: Lactic Acid 1.2 mmol/L (0.4-1.9)
[2021-01-07 19:50] LABS: Color, Urine Yellow (Yellow); Glucose, Dipstick Normal (Normal); Ketone-Dipstick 15 mg/dl (Negative); Leukocyte Esterase-Dipstick 100 /ul (Negative); Nitrite-Dipstick Negative (Negative); Occult Blood-Urine 10 /ul (Negative); Protein-Dipstick 15 mg/dl (Negative); Red Blood Cells-Urine 0 SEEN /hpf (0-5); Specific Gravity, Urine 1.015 (1.002-1.030); Urine Bilirubin Dipstick Negative (Negative); Urine Clarity Clear (Clear); Urine Urobilinogen Normal (Normal)
[2021-01-07] MEDS: Metoprolol Tartrate 5 MG/5 ML Vial IV ×3 (19:50→20:27)
[2021-01-07 19:56] LABS: Bacteria RARE /hpf (None Seen); Mucous, Urine 1+ /hpf (<or=2+)
[2021-01-07 19:57] LABS: Squamous Epithelial Cells - UA 0-5 SEEN /hpf (5-10); White Blood Cells 0-5 SEEN /hpf (0-5)
--- NOTE | 2021-01-07 22:21 | ED.DCSUM_ITS ---
- ER Visit Summary Date of Service: 01/07/21 Chief Complaint: Palpitations History of Present Illness: The patient is a [address] Santana and Dr. Pineda. Patient reports that she has a history of atrial fibrillation and is on Eliquis. She reports approximate hour ago she feels as though she went into atrial fibrillation. She denies any chest pain. She reports that she has chronic shortness of breath and cough that are unchanged. Patient complains of lower abdominal pain that began 3 days ago. Is a pressure that is 10 of 10 at worst and 710 currently. Is increased movement. Is decreased remaining still. She has had nausea. No vomiting or diarrhea. No dysuria or frequency. She does complain of generalized weakness. Physical Examination: Vitals: 96.8, 157/78, 144, 19, 96% on room air which is not hypoxic. General: Well-nourished and well-developed. Head: Normocephalic atraumatic. Neck: Supple, no lymphadenopathy. No JVD. Nontender. Cardiovascular: Tachycardic regular rhythm with a 2 out of 6 systolic murmur Respiratory: No respiratory distress. Clear to auscultation bilaterally. Abdominal: Soft, mild diffuse tenderness palpation it seems to be worse in the suprapubic region and right upper quadrants, nondistended, normal bowel sounds. No guarding, rebound, or peritoneal signs. Back: Nontender. Extremities: Nontender, no edema. Skin: Normal color, no rash. Neurologic: Alert and oriented ?3. Cranial nerves II through XII are intact. Normal strength and sensation. Psych: Normal affect. Test Results: EKG is A. fib at [address] changes. CBC shows a white count 11.8 with segmented neutrophils of 84 lymphocytes of 9. Chem-7 shows a glucose 123. LFTs show globulin of 4.4 and AST of 8. Lipase is 45. UA shows leukocytes. Troponin is negative. Lactic acid is 1.2. Clinical Impression(s) from Imaging Studies Gallbladder Ultrasound 01/07/21 17:52 IMPRESSION: Normal right upper quadrant ultrasound examination. Electronically Signed: Ro Dunn MD at 20:09 EDT Tel , Service support , Abdomen/Pelvis CT 01/07/21 17:53 IMPRESSION: Acute sigmoid diverticulitis. No free air or focal fluid collection. 4 mm pulmonary nodule in the right middle lobe. An optional follow-up chest CT in one year may be obtained. Small left inguinal fat-containing hernia. Electronically Signed: Arnold Jaffe MD at 21:36 EDT Tel , Service support , Chest X-Ray 01/07/21 18:25 IMPRESSION: No acute findings. Mild to moderate emphysema. Electronically Signed: Ro Dunn MD at 19:03 EDT Tel , Service support , Emergency Department Course and Treatment: Patient had an IV placed. She has been a liter normal saline. She was given 20 mg of Cardizem IV without any improvement in her rate. She was given 25 mg of Cardizem IV and her rate decreased into the 120-130 range. She was given 5 mg of metoprolol IV x3 and her rate is now in the low 100s. I had a prolonged discussion with patient about possible cardioversion given the fact that she is anticoagulated with Eliquis. She has refused this. She was given morphine, Zofran, and Zosyn IV for her diverticulitis. Treatment Plan: Patient was discussed with Dr. Vergara. She will be admitted to hospital for further evaluation and treatment. Disposition: Admitted in improved condition. Impression: 1. Atrial fibrillation with RVR. 2. Coagulopathy on Eliquis. 3. Diverticulitis. 4. Critical care time 30 minutes. This note was generated with [employer] dictation software. It may contain incorrect words, spelling, and punctuation that were not noted in review of the chart prior to signing ED Disposition - Plan for ED Patient: Referrals: Nelida Santana [Primary Care Provider] -
--- NOTE | 2021-01-07 23:42 | HP.PCM_ITS ---
<Nicolle Agudelo - Last Filed: 01/07/21 23:42> Problem List (1) Atrial fibrillation with RVR Status: Acute (2) Sigmoid diverticulitis Status: Acute (3) Neuropathy Status: Chronic (4) Hyperlipidemia Status: Chronic (5) CAD (coronary artery disease) Status: Chronic (6) Hypertension Status: Chronic (7) Tobacco abuse Status: Chronic History of Present Illness Date of Admission: 01/07/21 Chief Complaint: Afib with RVR, Abdominal pain The patient is a 70 year old F who presents today with complaints of palpitations. Patient states that she has had paroxysmal atrial fibrillation for some time and is currently anticoagulated with Eliquis. Approximately 1 hour before presenting to the ER patient reports she began feeling palpitations and felt she was in A. fib at this time. It should be noted that while patient was in the ER she was informed of her A. fib status and refused cardioversion. Patient also reports that over the past 3 days she has had increasing stomach pain. Patient states that the pain is currently a 4 out of 10, located in her lower abdomen and is not relational to eating. Patient denies chest pain, shortness of breath, lightheadedness, dizziness, diarrhea or constipation. Past Medical History Past Medical History (Chronic Problems): Chronic Problems COPD (chronic obstructive pulmonary disease) (Chronic) CAD (coronary artery disease) (Chronic) Neuropathy (Chronic) Hyperlipidemia (Chronic) Hypertension (Chronic) Esophagitis (Chronic) Tobacco abuse (Chronic) Myoclonic disorder (Chronic) Allergies levofloxacin [From Levaquin] Allergy (Verified 01/07/21 17:39) Rash phenytoin [From Dilantin] Allergy (Verified 01/07/21 17:39) Swelling Home Medications: Ambulatory Orders Medication Instructions Recorded Clopidogrel Bisulfate [Plavix] 75 mg PO DAILY 10/01/18 Clonazepam 2 mg PO BID 04/19/19 traMADol [Ultram] 1 tab PO BID PRN 04/19/19 Albuterol Sulfate [Ventolin Hfa] 2 puff INHALATION Q4H PRN PRN 10/23/19 Metoprolol Succinate [Toprol Xl] 100 mg PO DAILY #30 tab.er.24h 06/11/20 Surgical History: adenoidectomy, hysterectomy, tonsillectomy, - - Cyst removal Psychiatric History: No pertinent psych hx [employer]ER History: No pertinent [employer]ET[employer]E TORCH SOL[employer]ER history, ovarian cysts - Presumed Lives: Alone Smoking Status: Heavy Smoker (>10/day) Alcohol: None Drugs: None - *Family History Maternal History Items: Heart Disease, Stroke Paternal History Items: Cancer - Laryngeal, Heart Disease Review of Systems Constitutional: Denies: Chills, Fever, Weight Change HEENT: Denies: Head Aches, Sinus Congestion, Sinus Drainage Cardiovascular: Reports: Palpitations. Denies: Chest Pain Respiratory: Denies: Cough, Shortness of breath at rest, Sputum production Gastrointestinal: Reports: Abdominal Pain, Nausea. Denies: Vomiting Genitourinary: Denies: Dysuria Musculoskeletal: Denies: Joint Pain, Joint Tenderness Skin: Denies: Rash, Wounds Neurological: Denies: Numbness, Tingling, Focal weakness Psychiatric: Denies: Anxiety, Depression, Homicidal Ideations, Suicidal Ideations Hematologic/ Lymphatic: Denies: Easy Bruising, Easy Bleeding VTE Information - Inpt Only VTE Present on Admission: No VTE Mechan Device Prophylaxis: SCD's Patient Problems: Active and Suspected Problems Sigmoid diverticulitis (Acute) Atrial fibrillation with RVR (Acute) - Physical Exam Vitals/I&O's: Vital Signs Temp Pulse Resp BP Pulse Ox 97.8 F 133 H 20 H 106/71 98 01/07/21 22:47 01/07/21 22:47 01/07/21 22:47 01/07/21 22:47 01/07/21 22:47 Oxygen Flow Rate (L/min) 2 Oxygen Delivery Method Nasal Cannula Weight: 144 lb 6.444 oz Body Mass Index (BMI) 23.3 Intake and Output for Last 24 Hours 01/05/21 01/06/21 01/07/21 23:59 23:59 23:59 Intake Total 2099 Balance 2099 General: Alert, Oriented x3, Cooperative HEENT: Atraumatic, PERRLA, EOMI, Normocephalic Neck: Supple, No JVD, Negative Carotid Bruits Lungs: No rhonchi, No wheeze, No rales, Diminished Cardiovascular: Normal S1, Normal S2, No murmurs, Irregular Rate, Tachycardic Abdomen: Bowel Sounds Present, Soft, Tender Extremities: No edema, Capillary Refill Less than 3 Seconds, Peripheral Pulses Normal Skin: No rashes, No breakdown Musculoskeletal: No Tenderness to Palpation of Joints or Extremities Neurological: Cranial nerves II-XII grossly intact Psych/Mental Status: Normal Affect, Appropriate Microbiology Past 72 Hours 01/07/21 19:30 Nasal Secretion SARS-CoV-2 Antigen (Rapid) - Final Laboratory Results 01/07/21 18:00: WBC 11.8 H, RBC 4.43, Hgb 13.7, Hct 43.3, MCV 97.7, MCH 30.9, MCHC 31.6 L, RDW Std Deviation 46.3 H, RDW Coeff of Claudia 12.8, Plt Count 295, MPV 10.7, Immature Gran % (Auto) 0.300, Neut % (Auto) 83.6 H, Lymph % (Auto) 8.9 L, [place] % (Auto) 6.4, Eos % (Auto) 0.4, Baso % (Auto) 0.4, Absolute Neuts (auto) 9.8 H, Absolute Lymphs (auto) 1.05, Nucleated RBC % 0 01/07/21 18:00: Sodium 137, Potassium 4.0, Chloride 102, Carbon Dioxide 25.0, Anion Gap 10, BUN 13, Creatinine 0.78, Estim Creat Clear Calc 49.70, Est GFR (MDRD) Af Amer 94, Est GFR (MDRD) Non-Af 78, BUN/Creatinine Ratio 16.6, Glucose 123 H, Calcium 9.1, Total Bilirubin 0.70, AST 8 L, ALT 15, Alkaline Phosphatase 114, Troponin I < 0.015, Total Protein 8.1, Albumin 3.7, Globulin 4.4 H, Albumin/Globulin Ratio 0.8 L, Lipase 45 L 01/07/21 18:10: Lactic Acid 1.2 01/07/21 19:44: Urine Color Yellow, Urine Clarity Clear, Urine pH 5.0, Ur Specific [place] 1.015, Urine Protein 15 H, Urine Glucose (UA) Normal, Urine Ketones 15 H, Urine Occult Blood 10 H, Urine Nitrite Negative, Urine Bilirubin Negative, Urine Urobilinogen Normal, Ur Leukocyte Esterase 100 H, Urine RBC 0 SEEN, Urine WBC 0-5 SEEN, Ur Squamous Epith Cells 0-5 SEEN, Urine Bacteria RARE, Urine Mucus 1+ Current Medications Amiodarone HCl 360 mg/ (Dextrose) 200 mls @ 33.333 mls/hr CONT INF .Q6H HARIS Stop: 01/08/21 05:14 Assessment/Plan All Active Problems Sigmoid diverticulitis (Acute) Atrial fibrillation with RVR (Acute) 1. Atrial fibrillation with RVR -Admit to PCU for cardiac monitoring -Amiodarone drip initiated in ER will continue for rate and rhythm control, patient currently A. fib heart rate 114 -Trend cardiac enzyme -Obtain records from [facility], patient follows with cardiology there and states she has recently had cardiac testing -CBC, CMP, magnesium, phosphorus, and TSH ordered for a.m. -Cardiac heart healthy diet ordered -O2 per protocol -Patient currently slightly hypotensive, most likely due to multiple doses of Cardizem and metoprolol. Will obtain vital signs per protocol. 2. Sigmoid diverticulitis -Patient initiated on ceftriaxone and metronidazole for symptomatic diverticulitis -WBC 11.8, will trend CBC daily 3. Neuropathy -Continue home medication regimen. 4. Hyperlipidemia -Continue home medication regimen 5. Hypertension -Continue p.o. metoprolol for rate control. -Vital signs per protocol, monitor for hypotension. 6. Coronary artery disease -Continue Plavix 7. Tobacco abuse -NicoDerm transdermal patch ordered DVT prophylaxis-SCDs This patient was seen by MATT Hendrix under the supervision of Dr. Vergara. <Edis Vergara - Last Filed: 01/08/21 00:11> Problem List (1) Atrial fibrillation with RVR Status: Acute (2) Sigmoid diverticulitis Status: Acute (3) CAD (coronary artery disease) Status: Chronic (4) Hyperlipidemia Status: Chronic (5) Hypertension Status: Chronic (6) Neuropathy Status: Chronic (7) Tobacco abuse Status: Chronic (8) Chest pain Status: Inactive (9) COPD (chronic obstructive pulmonary disease) Status: Chronic (10) Esophagitis Status: Chronic (11) Myoclonic disorder Status: Chronic (12) Irritable bowel Status: Inactive History of Present Illness The patient is a 70 year old F [] Past Medical History Allergies levofloxacin [From Levaquin] Allergy (Verified 01/07/21 17:39) Rash phenytoin [From Dilantin] Allergy (Verified 01/07/21 17:39) Swelling - Physical Exam Vitals/I&O's: Vital Signs Temp Pulse Resp BP Pulse Ox 98 F 122 H 20 H 96/67 96 01/07/21 23:53 01/07/21 23:53 01/07/21 23:53 01/07/21 23:53 01/07/21 23:53 Oxygen Flow Rate (L/min) 2 Oxygen Delivery Method Nasal Cannula Weight: 65.5 kg Body Mass Index (BMI) 23.3 Intake and Output for Last 24 Hours 01/06/21 01/07/21 01/08/21 23:59 23:59 23:59 Intake Total 2202 Balance 2202 Microbiology Past 72 Hours 01/07/21 19:30 Nasal Secretion SARS-CoV-2 Antigen (Rapid) - Final Laboratory Results 01/07/21 18:00: WBC 11.8 H, RBC 4.43, Hgb 13.7, Hct 43.3, MCV 97.7, MCH 30.9, MCHC 31.6 L, RDW Std Deviation 46.3 H, RDW Coeff of Claudia 12.8, Plt Count 295, MPV 10.7, Immature Gran % (Auto) 0.300, Neut % (Auto) 83.6 H, Lymph % (Auto) 8.9 L, [place] % (Auto) 6.4, Eos % (Auto) 0.4, Baso % (Auto) 0.4, Absolute Neuts (auto) 9.8 H, Absolute Lymphs (auto) 1.05, Nucleated RBC % 0 01/07/21 18:00: Sodium 137, Potassium 4.0, Chloride 102, Carbon Dioxide 25.0, Anion Gap 10, BUN 13, Creatinine 0.78, Estim Creat Clear Calc 49.70, Est GFR (MDRD) Af Amer 94, Est GFR (MDRD) Non-Af 78, BUN/Creatinine Ratio 16.6, Glucose 123 H, Calcium 9.1, Total Bilirubin 0.70, AST 8 L, ALT 15, Alkaline Phosphatase 114, Troponin I < 0.015, Total Protein 8.1, Albumin 3.7, Globulin 4.4 H, Albumin/Globulin Ratio 0.8 L, Lipase 45 L 01/07/21 18:10: Lactic Acid 1.2 01/07/21 19:44: Urine Color Yellow, Urine Clarity Clear, Urine pH 5.0, Ur Specific [place] 1.015, Urine Protein 15 H, Urine Glucose (UA) Normal, Urine Ketones 15 H, Urine Occult Blood 10 H, Urine Nitrite Negative, Urine Bilirubin Negative, Urine Urobilinogen Normal, Ur Leukocyte Esterase 100 H, Urine RBC 0 SEEN, Urine WBC 0-5 SEEN, Ur Squamous Epith Cells 0-5 SEEN, Urine Bacteria RARE, Urine Mucus 1+ Current Medications Amiodarone HCl 360 mg/ (Dextrose) 200 mls @ 33.333 mls/hr CONT INF .Q6H HARIS Stop: 01/08/21 05:14 Last Admin: 01/07/21 23:53 Dose: 1 mg/min, 33.3 mls/hr Documented by: Assessment/Plan Patient was seen and examined. I agree with assessment and plan by Nicolle Agudelo, [employer] CLEAN[employer] SUPERVISOR-C. An hour prior to presentation patient had palpitations. Also patient complaining of right lower quadrant pain that has been going for 3 to 4days. Alert oriented x3 Heart sounds S1-S2 present, irregularly irregular rate and rhythm Abdomen bowel sounds present, tender right lower quadrant. Lungs with rhonchi Extremity without edema A. fib with RVR Received Cardizem IV boluses at the emergency department. Also received metoprolol IV and p.o. and was eventually started amiodarone bolus and drip. Refused cardioversion emergency department. Continue home metoprolol p.o. Continue amiodarone drip started emergency department. Eliquis continued Potassium normal Check magnesium and TSH. Acute segmental Diverticulitis Gallbladder ultrasound unremarkable. Abdomen and pelvis CT remarkable for acute sigmoid ventriculitis Started on Zosyn at the emergency department. ceftriaxone and Flagyl ordered. Clear liquid diet ordered Tobacco abuse Counseled Nicotine patch prescribed Cough Likely tobacco abuse Counseled Cough medicine ordered. Lung nodule Discussed with patient. Patient to follow-up longitudinally. DVT prophylaxis Resume patient Eliquis for A. fib. Inpatient E&M: [id number] Init Hosp L3
[2021-01-07] MEDS: Amiodarone 360 MG in Dextrose 5% Viaflo Bag 192.8 ML 33.3 MG CONT INF (23:53)
[2021-01-08] VITALS (15 sets, daily range): BP systolic 107–144; BP diastolic 55–77; PULSE 55–80; RESP 14–20; TEMP 36.3–36.8; O2SAT 92–100; BMI 24.2
[2021-01-08] MEDS: guaiFENesin 1,200 MG Tablet 1200 MG PO ×3 (00:46→21:00)
[2021-01-08] MEDS: clonazePAM 1 MG Tablet 2 MG PO (00:57)
[2021-01-08] MEDS: metroNIDAZOLE 500 MG/100 ML BAG 100 MG IV ×3 (05:20→21:00)
[2021-01-08] MEDS: Amiodarone 360 MG in Dextrose 5% Viaflo Bag 192.8 ML 16.7 MG CONT INF (05:53)
[2021-01-08 07:51] LABS: ALB/GLOB Ratio 0.8 RATIO (0.9-2.4); AST(SGOT) 8 U/L (15-37); Alanine Aminotransfer ALT/SGPT 11 U/L (13-56); Albumin, Serum 2.7 g/dL (3.2-5.0); Alkaline Phosphatase 83 U/L (45-117); Anion Gap 7 (5-15); BUN 12 mg/dL (7-18); BUN/Creat Ratio 17.8 RATIO (10-20); Calcium,Total 7.6 mg/dL (8.5-10.1); Chloride 106 mmol/L (98-107); Creatinine, Serum 0.67 mg/dL (0.55-1.02); EST Glomerular Filtration Rate 92 mL/min (>60); Est Glom Filt Rate - Afr Amer 112 mL/min (>60); Globulin 3.3 g/dL (2.2-4.2); Glucose 96 mg/dL (74-106); Magnesium 2.1 mg/dL (1.6-2.6); Phosphorus 3.8 mg/dL (2.5-4.9); Potassium 3.9 mmol/L (3.5-5.1); Sodium Level 137 mmol/L (136-145); Thyroid Stim Hormone (TSH) 0.89 uIU/mL (0.358-3.74)
[2021-01-08] MEDS: Metoprolol(XL)Succ 100 MG Tablet PO (10:11)
[2021-01-08] MEDS: Clopidogrel Bisulfate 75 MG Tablet PO (10:12)
[2021-01-08 10:30] LABS: Absolute Lymphocyte Count 1.64 X10^3/uL (0.83-4.51); Absolute Neutrophil Count 6.5 X10^3/uL (2.0-7.7); Basophil# 0.04 X10^3/uL; Basophil% 0.4 % (0-1); Eosinophil# 0.14 X10^3/uL; Eosinophils% 1.5 % (0-5); Hemoglobin 10.4 g/dL (12.0-15.0); Lymphocyte # 1.64 X10^3/ul (0.83-4.51); Lymphocyte % 17.8 % (19-41); Mean Corp Hgb Conc 29.7 g/dL (32-36); Mean Corpuscular Hgb 29.8 pg (27.0-32.0); Mean Corpuscular Volume 100.3 fL (81-99); Mean Platelet Vol. 10.3 fl (6.2-12.0); Monocyte# 0.85 X10^3/uL; Monocyte% 9.2 % (0-10); NRBC Flagged by Analyzer 0 % (0-5); Neutrophil # 6.51 X10^3/uL (2.7-7.7); Neutrophil % 70.9 % (47-70); Platelet Count 228 K/mm3 (150-450); RBC Distribution Width CV 13.1 % (11.6-14.6); RBC Distribution Width SD 48.8 fl (35.1-43.9); Red Blood Count 3.49 M/mm3 (4.2-5.4); White Blood Count 9.2 K/mm3 (4.4-11.0)
--- NOTE | 2021-01-08 11:05 | CASEMGMT ---
MARIA DEL CARMEN MARIE Assessment: Face to Face with pt for initial transition planning/care coordination assessment. RN CYNTHIA introduced self and role at [facility], pt voices understanding and consents to assessment. Pt agreeable to dtr to complete assessment with CM as pt unable to keep her eyes open. Dtr, Jacqueline Matrines at bedside. Care providers, pharmacy, and demographics verified/updated. Admitting Dx: A fib with RVR, diverticulitis PCP: Esther Specialists: Maida cardio [facility]erred [facility]acy: [facility] Insurance: [facility] Prescription Benefit: yes LW/HPOA: Per dtr pt does not have LW or DPOA. States she will work on this. LNOK: Jacqueline Martines, dtr; Shay Hayes, grandson, Mau Dillard, Living Arrangements: Pt lives in a single story house with 1 step to enter with her and grandson. Dtr reports pt was independent with ADL's. Transportation: Per dtr pt drove her self. Denies issues with transportation. DME/HHC/SNF: Dtr denies DME in the home, previous HHC or SNF stays. Pt dtr states pt is not normally this sleepy. 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 Pt dtr states no concerns with going home at time of dc. Pt dtr states no further concerns/needs. CM to follow. Advised pt to ask CM if any further question/concerns/needs arise, voices understanding. Pt Goal: Home Plan: Home with family support
--- NOTE | 2021-01-08 13:26 | PN.HOSP_ITS ---
Subjective Subjective: No chest pain. Objective Data Objective Data Vital Signs: Vital Signs Temp Pulse Resp BP Pulse Ox 36.4 C L 57 L 14 116/55 L 96 01/08/21 10:00 01/08/21 10:11 01/08/21 10:00 01/08/21 10:00 01/08/21 10:00 Oxygen Flow Rate (L/min) 2 Oxygen Delivery Method Room Air Weight: 68.1 kg Body Mass Index (BMI) 24.2 Intake & Output: Intake and Output for Last 24 Hours 01/06/21 01/07/21 01/08/21 23:59 23:59 23:59 Intake Total 2203 / 2203 924.63 / 924.63 Balance 2203 / 2203 924.63 / 924.63 Lab / Micro Data Result Diagrams: 01/08/21 06:36 01/08/21 06:36 Labs: Laboratory Results - last 24 hr 01/07/21 01/07/21 01/07/21 18:00 18:00 18:10 WBC 11.8 H RBC 4.43 Hgb 13.7 Hct 43.3 MCV 97.7 MCH 30.9 MCHC 31.6 L RDW Std Deviation 46.3 H RDW Coeff of Claudia 12.8 Plt Count 295 MPV 10.7 Immature Gran % (Auto) 0.300 Neut % (Auto) 83.6 H Lymph % (Auto) 8.9 L [place] % (Auto) 6.4 Eos % (Auto) 0.4 Baso % (Auto) 0.4 Absolute Neuts (auto) 9.8 H Absolute Lymphs (auto) 1.05 Nucleated RBC % 0 Sodium 137 Potassium 4.0 Chloride 102 Carbon Dioxide 25.0 Anion Gap 10 BUN 13 Creatinine 0.78 Estim Creat Clear Calc 49.70 Est GFR (MDRD) Af Amer 94 Est GFR (MDRD) Non-Af 78 BUN/Creatinine Ratio 16.6 Glucose 123 H Lactic Acid 1.2 Calcium 9.1 Phosphorus Magnesium Total Bilirubin 0.70 AST 8 L ALT 15 Alkaline Phosphatase 114 Troponin I < 0.015 Total Protein 8.1 Albumin 3.7 Globulin 4.4 H Albumin/Globulin Ratio 0.8 L Lipase 45 L TSH Urine Color Urine Clarity Urine pH Ur Specific [place] Urine Protein Urine Glucose (UA) Urine Ketones Urine Occult Blood Urine Nitrite Urine Bilirubin Urine Urobilinogen Ur Leukocyte Esterase Urine RBC Urine WBC Ur Squamous Epith Cells Urine Bacteria Urine Mucus 01/07/21 01/08/21 01/08/21 19:44 00:40 03:06 WBC RBC Hgb Hct MCV MCH MCHC RDW Std Deviation RDW Coeff of Claudia Plt Count MPV Immature Gran % (Auto) Neut % (Auto) Lymph % (Auto) [place] % (Auto) Eos % (Auto) Baso % (Auto) Absolute Neuts (auto) Absolute Lymphs (auto) Nucleated RBC % Sodium Potassium Chloride Carbon Dioxide Anion Gap BUN Creatinine Estim Creat Clear Calc Est GFR (MDRD) Af Amer Est GFR (MDRD) Non-Af BUN/Creatinine Ratio Glucose Lactic Acid Calcium Phosphorus Magnesium Total Bilirubin AST ALT Alkaline Phosphatase Troponin I 0.032 0.032 Total Protein Albumin Globulin Albumin/Globulin Ratio Lipase TSH Urine Color Yellow Urine Clarity Clear Urine pH 5.0 Ur Specific [place] 1.015 Urine Protein 15 H Urine Glucose (UA) Normal Urine Ketones 15 H Urine Occult Blood 10 H Urine Nitrite Negative Urine Bilirubin Negative Urine Urobilinogen Normal Ur Leukocyte Esterase 100 H Urine RBC 0 SEEN Urine WBC 0-5 SEEN Ur Squamous Epith Cells 0-5 SEEN Urine Bacteria RARE Urine Mucus 1+ 01/08/21 01/08/21 01/08/21 06:36 06:36 06:36 WBC 9.2 RBC 3.49 L Hgb 10.4 L Hct 35.0 L MCV 100.3 H MCH 29.8 MCHC 29.7 L D RDW Std Deviation 48.8 H RDW Coeff of Claudia 13.1 Plt Count 228 MPV 10.3 Immature Gran % (Auto) 0.200 Neut % (Auto) 70.9 H Lymph % (Auto) 17.8 L [place] % (Auto) 9.2 Eos % (Auto) 1.5 Baso % (Auto) 0.4 Absolute Neuts (auto) 6.5 Absolute Lymphs (auto) 1.64 Nucleated RBC % 0 Sodium 137 Potassium 3.9 Chloride 106 Carbon Dioxide 24.0 Anion Gap 7 BUN 12 Creatinine 0.67 Estim Creat Clear Calc 49.70 Est GFR (MDRD) Af Amer 112 Est GFR (MDRD) Non-Af 92 BUN/Creatinine Ratio 17.8 Glucose 96 Lactic Acid Calcium 7.6 L Phosphorus 3.8 Magnesium 2.1 Total Bilirubin 0.50 AST 8 L ALT 11 L Alkaline Phosphatase 83 Troponin I 0.021 Total Protein 6.0 L Albumin 2.7 L Globulin 3.3 Albumin/Globulin Ratio 0.8 L Lipase TSH 0.89 Urine Color Urine Clarity Urine pH Ur Specific [place] Urine Protein Urine Glucose (UA) Urine Ketones Urine Occult Blood Urine Nitrite Urine Bilirubin Urine Urobilinogen Ur Leukocyte Esterase Urine RBC Urine WBC Ur Squamous Epith Cells Urine Bacteria Urine Mucus Micro: Microbiology 01/07/21 19:30 Nasal Secretion SARS-CoV-2 Antigen (Rapid) - Final Radiography Diagnostic Testing: Radiology Impression Gallbladder Ultrasound 01/07/21 17:52 IMPRESSION: Normal right upper quadrant ultrasound examination. Electronically Signed: Ro Dunn MD at 20:09 EDT Tel , Service support , Abdomen/Pelvis CT 01/07/21 17:53 IMPRESSION: Acute sigmoid diverticulitis. No free air or focal fluid collection. 4 mm pulmonary nodule in the right middle lobe. An optional follow-up chest CT in one year may be obtained. Small left inguinal fat-containing hernia. Electronically Signed: Arnold Jaffe MD at 21:36 EDT Tel , Service support , Chest X-Ray 01/07/21 18:25 IMPRESSION: No acute findings. Mild to moderate emphysema. Electronically Signed: Ro Dunn MD at 19:03 EDT Tel , Service support , Physical Exam Const Constitutional Narrative: listless. afebrile. HEENT head/scalp atraumatic Head and Scalp: normocephalic Resp normal respiratory effort and clear to auscultation bilaterally Cardio regular rate, regular rhythm, S1 normal heart sound and S2 normal heart sound Assessment & Plan Assessment/Plan (1) Paroxysmal atrial fibrillation with RVR: Status: Acute Code(s): I48.0 - Paroxysmal atrial fibrillation Plan: converted to NSR. DC amio gtt continue metoprolol succinate. check echo (2) Sigmoid diverticulitis: Status: Acute Code(s): K57.32 - Diverticulitis of large intestine without perforation or abscess without bleeding Plan: on CTX and metronidazole on diet on cardiac diet
--- NOTE | 2021-01-08 13:33 | ECHOD_ITS ---
Reason For Study: ATRIAL FIB-FLUTTER Procedure This was a 2D Doppler, Color Flow transthoracic echocardiogram. The study was technically difficult. Exam performed portable in patient room. Left Ventricle Normal LV size. Left ventricular systolic function is normal. The estimated ejection fraction is 65 %. There is evidence of diastolic dysfunction. No regional wall motion abnormalities noted. Right Ventricle Normal RV size. Normal systolic function. Atria The left atrium is moderately enlarged. Normal right atrium. No doppler evidence for ASD. Mitral Valve There is no mitral annular calcification. Normal mitral valve. Mild (1+) mitral valve insufficiency. Tricuspid Valve Normal tricuspid valve. Mild tricuspid valve insufficiency. Right ventricular systolic pressure estimated to be 54 mmHg. Aortic Valve Trisinus/trileaflet aortic valve. Mild diffuse aortic valve thickening. Moderate focal aortic valve calcification. Pulmonic Valve The pulmonic valve is not well visualized. Trivial pulmonic valve insufficiency. Great Vessels Normal sized aortic root. Pericardium/Pleural No pericardial effusion. MMode/2D Measurements & Calculations LVIDd: 4.0 cm IVSd: 1.1 cm Ao root diam: 3.3 cm LVIDs: 2.7 cm LVPWd: 1.1 cm RVDd: 3.8 cm FS: 32.5 % LAV(MOD-bp): 74.1 ml LVAd ap4: 27.9 cm2 LVAd ap2: 21.2 cm2 LAV(MOD-bp) Indexed: 41.9 ml/m2 LVLd ap4: 7.3 cm LVLd ap2: 6.8 cm LAV(MOD-sp2): 60.2 ml EDV(MOD-sp4): 84.6 ml EDV(MOD-sp2): 54.8 ml LAV(MOD-sp4): 83.5 ml EDV(sp4-el): 90.0 ml EDV(sp2-el): 56.6 ml LVAs ap4: 15.3 cm2 LVAs ap2: 11.7 cm2 LVLs ap4: 6.4 cm LVLs ap2: 6.0 cm ESV(MOD-sp4): 29.4 ml ESV(MOD-sp2): 19.8 ml ESV(sp4-el): 31.2 ml ESV(sp2-el): 19.3 ml EF(MOD-sp4): 65.2 % EF(MOD-sp2): 63.9 % EF(sp4-el): 65.4 % SV(MOD-sp4): 55.2 ml SV(MOD-sp2): 35.0 ml SV(sp4-el): 58.8 ml LA dimension(2D): 4.8 cm LA A4 area: 24.8 cm2 RA A4 area: 16.4 cm2 Time Measurements MV dec time: 0.28 sec Doppler Measurements & Calculations MV E max luís: 112.2 cm/sec Lat Peak E' Luís: 7.3 cm/sec Med Peak E' Luís: 7.4 cm/sec MV A max luís: 114.4 cm/sec E/E' lat: 15.3 E/E' med: 15.1 MV E/A: 0.98 Ao V2 max: 156.3 cm/sec LV V1 max: 139.0 cm/sec PA V2 max: 80.6 cm/sec Ao max P.8 mmHg LV V1 max P.7 mmHg TR max luís: 356.2 cm/sec TR max P.8 mmHg ECHO/Echo Complete Interpretation Summary The study was technically difficult. Left ventricular systolic function is normal. The estimated ejection fraction is 65 %. The left atrium is moderately enlarged. Mild (1+) mitral valve insufficiency. Mild tricuspid valve insufficiency. Mild diffuse aortic valve thickening. Moderate focal aortic valve calcification. Trivial pulmonic valve insufficiency. Right ventricular systolic pressure estimated to be 54 mmHg. There is evidence of diastolic dysfunction. Ordering Physician: Luis Bourne Referring Physician: LUIS GRAY Performed By: Racheal Mae RDCS
--- NOTE | 2021-01-08 14:16 | CASEMGMT ---
Screened pt with [facility] Palliative Screening Tool due to Strata 3, pt did not meet criteria.
[2021-01-08] MEDS: 0.9% Saline Lock 10 ML Syringe IV (14:48)
[2021-01-08] MEDS: BENZOCAINE/MENTHOL 1 LOZENGE MUCOUS MEM (18:20)
[2021-01-09] VITALS (7 sets, daily range): BP systolic 152–157; BP diastolic 76–88; PULSE 68–76; RESP 16–18; TEMP 36.5–36.7; O2SAT 94
[2021-01-09] MEDS: metroNIDAZOLE 500 MG/100 ML BAG 100 MG IV (05:02)
[2021-01-09 06:06] LABS: Absolute Lymphocyte Count 0.88 X10^3/uL (0.83-4.51); Absolute Neutrophil Count 5.5 X10^3/uL (2.0-7.7); Basophil# 0.03 X10^3/uL; Basophil% 0.4 % (0-1); Eosinophil# 0.11 X10^3/uL; Eosinophils% 1.6 % (0-5); Hematocrit 37.4 % (37-47); Hemoglobin 11.4 g/dL (12.0-15.0); Lymphocyte # 0.88 X10^3/ul (0.83-4.51); Lymphocyte % 12.4 % (19-41); Mean Corp Hgb Conc 30.5 g/dL (32-36); Mean Corpuscular Hgb 30.2 pg (27.0-32.0); Mean Corpuscular Volume 99.2 fL (81-99); Mean Platelet Vol. 10.5 fl (6.2-12.0); Monocyte# 0.55 X10^3/uL; Monocyte% 7.8 % (0-10); NRBC Flagged by Analyzer 0 % (0-5); Neutrophil % 77.7 % (47-70); Platelet Count 245 K/mm3 (150-450); RBC Distribution Width CV 12.8 % (11.6-14.6); RBC Distribution Width SD 46.9 fl (35.1-43.9); Red Blood Count 3.77 M/mm3 (4.2-5.4); White Blood Count 7.1 K/mm3 (4.4-11.0)
[2021-01-09 06:33] LABS: ALB/GLOB Ratio 0.8 RATIO (0.9-2.4); AST(SGOT) 10 U/L (15-37); Alanine Aminotransfer ALT/SGPT 12 U/L (13-56); Albumin, Serum 2.9 g/dL (3.2-5.0); Alkaline Phosphatase 90 U/L (45-117); Anion Gap 5 (5-15); BUN 12 mg/dL (7-18); BUN/Creat Ratio 20.6 RATIO (10-20); Calcium,Total 8.5 mg/dL (8.5-10.1); Chloride 110 mmol/L (98-107); Creatinine, Serum 0.58 mg/dL (0.55-1.02); EST Glomerular Filtration Rate 109 mL/min (>60); Est Glom Filt Rate - Afr Amer 132 mL/min (>60); Globulin 3.6 g/dL (2.2-4.2); Glucose 103 mg/dL (74-106); Protein, Total 6.5 g/dL (6.4-8.2); Sodium Level 140 mmol/L (136-145)
--- NOTE | 2021-01-09 09:52 | DS.PCM_ITS ---
Providers Date of Admission: 01/07/21 Primary Care Physician: Nelida Gray Reason For Visit: AFIB WITH RVR, DIVERTICULITIS Diagnosis Discharge Diagnosis (1) Paroxysmal atrial fibrillation with RVR: Status: Acute Code(s): I48.0 - Paroxysmal atrial fibrillation Plan: Continue with metoprolol succinate. Patient has not been put on blood thinners previously. Will start patient on apixaban 2.5 mg twice daily. Follow-up with cardiology as an outpatient. (2) Sigmoid diverticulitis: Status: Acute Code(s): K57.32 - Diverticulitis of large intestine without perforation or abscess without bleeding Plan: Treat with amoxicillin/clavulanic acid for 6 more days. To complete a 7-day course of antibiotics. Medications at Discharge Home Medications clopidogrel 75 mg PO DAILY 10/01/18 clonazepam 2 mg PO BID 04/19/19 tramadol 1 tab PO BID PRN 04/19/19 albuterol sulfate 2 puff INHALATION Q4H PRN PRN 10/23/19 metoprolol succinate 100 mg PO DAILY #30 tab.er.24h 06/11/20 lisinopril 20 mg PO DAILY 01/08/21 amoxicillin-pot clavulanate [Augmentin] 1 tab PO BID #12 tab 01/09/21 apixaban [Eliquis] 2.5 mg PO BID #60 tab 01/09/21 guaifenesin [Mucus Relief ER] 1,200 mg PO BID #10 tab 01/09/21 Hospital Course Procedures 2-D Echocardiogram Summary of Care Provided Minutes Spent on Discharge: 32 Hospital Course: 70-year-old white female complains of palpitations. Patient has a history of paroxysmal atrial fibrillation but never anticoagulated previou sly. Patient was having some abdominal pain just feeling fullness feeling that her intestines were going to drop out. Patient was found to have acute sigmoid diverticulitis and was treated with ceftriaxone and metronidazole. Patient Callie. fib did require her being put on amiodarone drip which did convert to normal sinus rhythm. Patient was continued on her metoprolol succinate but also started on apixaban given a [id number] score of 2. Patient will continue with Augmentin for 6 more days clear to 7-day course of antibiotics. Physical Exam Const alert and no apparent distress General Appearance: cooperative and comfortable Resp normal respiratory effort and no use of accessory muscles Cardio regular rate, regular rhythm, S1 normal heart sound and S2 normal heart sound GI normal to inspection, nondistended, normoactive bowel sounds, non-tender and non-distended ABG / Lab / Microbiology Data Result Diagrams: 01/09/21 05:34 01/09/21 05:34 Laboratory: Laboratory Results - last 24 hr 01/08/21 01/09/21 01/09/21 06:36 05:34 05:34 WBC 9.2 7.1 RBC 3.49 L 3.77 L Hgb 10.4 L 11.4 L Hct 35.0 L 37.4 MCV 100.3 H 99.2 H MCH 29.8 30.2 MCHC 29.7 L D 30.5 L RDW Std Deviation 48.8 H 46.9 H RDW Coeff of Claudia 13.1 12.8 Plt Count 228 245 MPV 10.3 10.5 Immature Gran % (Auto) 0.200 0.100 Neut % (Auto) 70.9 H 77.7 H Lymph % (Auto) 17.8 L 12.4 L [place] % (Auto) 9.2 7.8 Eos % (Auto) 1.5 1.6 Baso % (Auto) 0.4 0.4 Absolute Neuts (auto) 6.5 5.5 Absolute Lymphs (auto) 1.64 0.88 Nucleated RBC % 0 0 Sodium 140 Potassium 4.0 Chloride 110 H Carbon Dioxide 25.0 Anion Gap 5 BUN 12 Creatinine 0.58 Estim Creat Clear Calc 49.70 Est GFR (MDRD) Af Amer 132 Est GFR (MDRD) Non-Af 109 BUN/Creatinine Ratio 20.6 H Glucose 103 Calcium 8.5 Total Bilirubin 0.30 AST 10 L ALT 12 L Alkaline Phosphatase 90 Total Protein 6.5 Albumin 2.9 L Globulin 3.6 Albumin/Globulin Ratio 0.8 L Microbiology: Microbiology 01/07/21 19:30 Nasal Secretion SARS-CoV-2 Antigen (Rapid) - Final Radiography Diagnostic Testing: Radiology Impression Echocardiogram 01/08/21 13:33 Interpretation Summary The study was technically difficult. Left ventricular systolic function is normal. The estimated ejection fraction is 65 %. The left atrium is moderately enlarged. Mild (1+) mitral valve insufficiency. Mild tricuspid valve insufficiency. Mild diffuse aortic valve thickening. Moderate focal aortic valve calcification. Trivial pulmonic valve insufficiency. Right ventricular systolic pressure estimated to be 54 mmHg. There is evidence of diastolic dysfunction. Ordering Physician: Luis Bourne Referring Physician: NELIDA GRAY Performed By: Racheal Mae RDCS Meaningful Use Info Meaningful Use Diagnoses (Choose all that apply): None applicable Discharge Plan Admission Admit Date/Time: 01/07/21 23:09 Attending Provider: Edis Vergara Primary Care Provider: Nelida Gray Discharge Orders/Prescriptions Prescriptions: New Mucus Relief ER 1,200 mg Tablet Extended Release 12hr 1,200 mg PO BID Qty: 10 RF: 0 Eliquis 2.5 mg Tablet 2.5 mg PO BID Qty: 60 RF: 0 amoxicillin-pot clavulanate [Augmentin] 875-125 mg tablet 1 tab PO BID Qty: 12 RF: 0 Continued clopidogrel 75 MG tablet 75 mg PO DAILY RF: 0 clonazepam 1 MG tablet 2 mg PO BID RF: 0 tramadol 50 MG tablet 1 tab PO BID PRN (Reason: Pain) RF: 0 albuterol sulfate 18 GM HFA aerosol inhaler 2 puff inhalation Q4H PRN PRN (Reason: Sob &/Or Wheezing) RF: 0 metoprolol succinate 100 MG tablet extended release 24 hr 100 mg PO DAILY Qty: 30 RF: 0 lisinopril 20 mg tablet 20 mg PO DAILY RF: 0 Referrals: Yousif Mendoza MD [STAFF PHYSICIAN] - Within 1 Month Nelida Gray [Primary Care Provider] - In 1 Week Disposition Patient Disposition: Home, self care Inpatient E&M: [id number] Disch Hosp
[2021-01-09] MEDS: Metoprolol(XL)Succ 100 MG Tablet PO (10:06)
[2021-01-09] MEDS: Clopidogrel Bisulfate 75 MG Tablet PO (10:06)
[2021-01-09] MEDS: guaiFENesin 1,200 MG Tablet 1200 MG PO (10:06)
[2021-01-09] MEDS: APIXABAN 2.5 MG TABLET PO (10:06)
--- NOTE | 2021-01-09 10:39 | CASEMGMT ---
Addendum entered by Tg Quiles 01/09/21 10:45: Pt screened with [facility] Palliative Screening Tool due to Strata 3, pt did not meet criteria. Original Note: MARIA DEL CARMEN MARIE noted pt to be dc'd on [employer]. TC to [facility] pharmacy, pt copay is $9.20. Pt is aware and denies difficulty with this cost. Pt states she feels well and denies any needs at home.
--- NOTE | 2021-01-10 12:04 | CASEMGMT ---
MARIA DEL CARMEN MARIE Discharge F/U Phone Call LACE: 11 Strata: 3 Discharge date: 01/09/21 Call date: 01/10/21 Call time: 1204 Admission dx: Afib RVR, diverticulitis Pt states she has been 'doing' since discharge. Pt states no questions regarding discharge instructions/medications. Pt states has f/u appts scheduled and plans to keep. Pt voices no suggestions for H and states 'I had good care and you all are really good at what you do.' Pt voices no further questions/concerns/needs. [place] MARIA DEL CARMEN MARIE
== END 2021-01-09 13:39 | disposition home or self-care (01) | DRG 309 ==
LOC: ED 18:35 → PCU 23:29
PROVIDERS: Nurse Practitioner Family; Admitting Provider Hospitalist; Emergency Provider Emergency Medicine; PCP Family Medicine; Visit Provider Hospitalist
DX: I48.0 Paroxysmal atrial fibrillation (principal); K57.32 Diverticulitis of large intestine without perforation or abscess without bleeding; I95.2 Hypotension due to drugs; T46.1X5A Adverse effect of calcium-channel blockers, initial encounter; Y92.9 Unspecified place or not applicable; I10 Essential (primary) hypertension; E78.5 Hyperlipidemia, unspecified; G62.9 Polyneuropathy, unspecified; I25.10 Atherosclerotic heart disease of native coronary artery without angina pectoris; J44.9 Chronic obstructive pulmonary disease, unspecified; D68.9 Coagulation defect, unspecified; F17.200 Nicotine dependence, unspecified, uncomplicated; Z79.02 Long term (current) use of antithrombotics/antiplatelets; Z79.899 Other long term (current) drug therapy; Z87.19 Personal history of other diseases of the digestive system; Z79.01 Long term (current) use of anticoagulants
CPT/HCPCS: 36415; 71045; 74177; 76705; 80053; 81001; 83605; 83690; 83735; 84100; 84443; 84484; 85025; 87426; 93005; 93306; 96365; 96366; 96367; 96368; 96375; 96376; 97802; 99218; 99285; 99406; J7030; Q9967; A4216; G0378; J0696; J2405

== ENCOUNTER 2021-05-19 09:30 | Emergency (ER) | payer MEDICARE, SELFPAY ==
[2021-05-19] VITALS (10 sets, daily range): BP systolic 107–154; BP diastolic 58–105; PULSE 50–156; RESP 16–26; TEMP 36.3–36.6; O2SAT 95–100; BMI 21.7
--- NOTE | 2021-05-19 09:39 | EKG12_ITS ---
Test Reason : TACHY Blood Pressure : / mmHG Vent. Rate : 165 BPM Atrial Rate : 122 BPM P-R Int : 000 ms QRS Dur : 074 ms QT Int : 286 ms P-R-T Axes : 000 050 102 degrees QTc Int : 473 ms Atrial fibrillation Nonspecific ST and T wave abnormality Abnormal ECG Confirmed by LOGAN GRIMALDO, LEIA ([id number]), commercial production editor LUH CUTLER ([id number]) on 05/21/2021 8:49:36 AM Referred By: KRISTEN Confirmed By:LEIA FORD MD
--- NOTE | 2021-05-19 09:41 | EDS_ITS ---
HPI History of Present Illness Chief Complaint: Palpitations Informant: patient Narrative Narrative: 70-year-old female presents to the emergency department with an episode of atrial fibrillation. Patient notes she has a history of coronary artery disease and has had atrial fibrillation in the past. She states her last episode was in December. At that time she was admitted to the hospital. 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 Bey in [place]. She states that she is no longer on Eliquis but does take Plavix. She does not know why her Eliquis was discontinued. Patient states that when she woke this morning she was dizzy and had burning in her chest and noticed her heart racing. [facility] Medical History Anemia Atherosclerotic heart disease of [place] coronary artery without angina pectoris COPD (chronic obstructive pulmonary disease) GERD (gastroesophageal reflux disease) History of left heart catheterization Hyperlipidemia Hypertension Irritable bowel Myoclonic disorder Paroxysmal atrial fibrillation with RVR Sigmoid diverticulitis Thyroid nodule Home Medications clopidogrel 75 mg PO DAILY 10/01/18 [History Last Taken 01/06/21] tramadol 1 tab PO BID PRN 04/19/19 [History Last Taken 11/15/19] albuterol sulfate 2 puff INHALATION Q4H PRN PRN 10/23/19 [History Last Taken 01/01] metoprolol succinate 100 mg PO DAILY #30 tab.er.24h 06/11/20 [Rx Last Taken 01/07/21] lisinopril 20 mg PO DAILY 01/08/21 [History Last Taken Unknown] budesonide-formoterol HFA 160 mcg-4.5 mcg/actuation aerosol inhaler 2 puff INHALATION BID 02/05/21 [History Last Taken Unknown] clonazepam 1 mg tablet 2 mg PO BID PRN 02/05/21 [History Last Taken Unknown] hydrochlorothiazide 25 mg tablet 25 mg PO DAILY 02/05/21 [History Last Taken Unknown] nitroglycerin 0.4 mg sublingual tablet 0.4 mg SUBLINGUAL Q5-15M PRN 02/05/21 [History Last Taken Unknown] Allergy/AdvReac Type Severity Reaction Status Date / Time levofloxacin [From Levaquin] Allergy Rash Verified 05/19/21 09:37 phenytoin [From Dilantin] Allergy Swelling Verified 05/19/21 09:37 sertraline AdvReac Intermediate anxiety Verified 05/19/21 09:37 Family History Mother Hypertension CVA (cerebral vascular accident) CAD (coronary artery disease) Father Colon cancer Leukemia Throat cancer Surgical History History of breast lump removal History of coronary artery stent placement History of lobectomy of thyroid History of thyroidectomy History of total abdominal hysterectomy Social History (Updated 05/19/21 @ 09:[address] Rob Morillo DO) Smoking Status: Heavy Smoker (>10/day) substance use type: does not use ROS ROS ED Constitutional Constitutional ED: Denies chills or weight loss Eyes Eyes: Denies change in vision or diplopia ENT ENT ED: Denies ear pain, rhinorrhea or sore throat Cardiovascular Cardiovascular: Reports chest pain, palpitations and racing heartbeat; Denies orthopnea Respiratory/Chest Respiratory/Chest: Denies cough, dyspnea or orthopnea Gastrointestinal Gastrointestinal: Denies abdominal pain, diarrhea, nausea or vomiting Genitourinary Genitourinary ED: Denies dysuria, hematuria or urinary frequency Musculoskeletal Musculoskeletal: Denies arthralgias or myalgias Integumentary Denies abscess or rash Neurologic Neurologic: Reports other Details: Dizziness ; Denies headache(s) or weakness Psychiatric Psychiatric: Denies anxiety, depression, suicidal ideation or suicidal thoughts Endocrine Endocrinology: Denies polydipsia, polyphagia or polyuria Allergic/Immunologic Allergic/Immunologic ED: Denies mouth swelling, tongue swelling or urticaria EXAM Physical Exam Const Vital Signs: 05/19/21 09:31 05/19/21 09:34 05/19/21 10:09 Temperature 97.3 F L Temperature Source Temporal Pulse Rate 156 H 133 H Respiratory Rate 16 26 H Respiratory Effort Short of Breath Respiratory Pattern Irregular Blood Pressure 154/105 H 119/75 Blood Pressure Mean 121 89 Pulse Ox 97 99 Oxygen Delivery Method Room Air Nasal Cannula Oxygen Flow Rate (L/min) 2 05/19/21 10:13 05/19/21 10:55 05/19/21 11:56 Temperature Temperature Source Pulse Rate 124 H 130 H 102 H Respiratory Rate 20 H 20 H 20 H Respiratory Effort Respiratory Pattern Blood Pressure 116/81 H 113/84 H 109/72 Blood Pressure Mean 92 93 84 Pulse Ox 100 95 Oxygen Delivery Method Room Air Room Air Oxygen Flow Rate (L/min) 2 05/19/21 11:57 05/19/21 12:02 05/19/21 12:03 Temperature 97.8 F Temperature Source Temporal Pulse Rate 111 H 103 H 107 H Respiratory Rate 20 H 24 H 20 H Respiratory Effort Respiratory Pattern Blood Pressure 109/72 107/74 107/74 Blood Pressure Mean 84 85 85 Pulse Ox 96 95 Oxygen Delivery Method Nasal Cannula Room Air Oxygen Flow Rate (L/min) 2 05/19/21 12:35 05/19/21 13:00 Temperature Temperature Source Pulse Rate 54 L 50 L Respiratory Rate 17 Respiratory Effort Respiratory Pattern Blood Pressure 121/58 H Blood Pressure Mean 79 Pulse Ox 97 Oxygen Delivery Method Oxygen Flow Rate (L/min) Positive well nourished and well developed General Appearance ED: well developed HEENT Reports normocephalic, head/scalp atraumatic and moist mucous membranes Eyes PERRL and EOMs intact bilaterally Neck no lymphadenopathy, supple and no JVD Resp normal respiratory effort and clear to auscultation bilaterally Cardio no murmurs Rate: tachycardic Rhythm: abnormal rhythm irregularly irregular GI normal to inspection, nondistended, normoactive bowel sounds and non-tender Palpation: soft Back/Spine no CVA tenderness and normal ROM Extremity normal to inspection General Extremety ED: Negative for edema General Extremity: Negative for edema Neuro oriented x3 and CN's II-XII intact bilaterally Sensorium / Orientation: alert Motor Exam: strength 5/5 throughout Psych mental status grossly normal Mood & Affect: Negative for depressed or tearful Skin no rashes or lesions noted and no wounds MDM MDM MDM Narrative Medical decision making narrative: Basic blood work was obtained with a troponin high-sensitivity at 26. Magnesium 2.2 potassium 4. My interpretation of the chest x-ray is no acute process. Emphysematous changes noted. Patient requested metoprolol which she states has worked for her in the past. I gave this and her rate did decrease but unfortunately only to the 130s. She was given a 20 mg bolus of Cardizem and started on a drip. This resulted in her converting to a sinus rhythm. We observed her for an additional hour and she is doing well. At this point patient will be discharged home. I have asked her to call her hydraulic punch press operator and to confirm that she is not to be taking the Eliquis and see if they wish her to be fully anticoagulated as I am not seeing a reason why she should not be. Lab Data Attestation: I reviewed the patient's lab results. Labs: Laboratory Results - last 24 hr 05/19/21 05/19/21 09:30 09:30 WBC 7.4 RBC 4.86 Hgb 15.0 Hct 46.2 MCV 95.1 MCH 30.9 MCHC 32.5 RDW Std Deviation 46.9 H RDW Coeff of Claudia 13.3 Plt Count 258 MPV 10.4 Immature Gran % (Auto) 0.300 Neut % (Auto) 63.2 Lymph % (Auto) 25.8 [place] % (Auto) 8.3 Eos % (Auto) 1.6 Baso % (Auto) 0.8 Absolute Neuts (auto) 4.7 Absolute Lymphs (auto) 1.90 Nucleated RBC % 0 Sodium 137 Potassium 4.0 Chloride 108 H Carbon Dioxide 22.0 Anion Gap 7 BUN 15 Creatinine 0.82 Estim Creat Clear Calc 60.62 Est GFR (MDRD) Af Amer 89 Est GFR (MDRD) Non-Af 74 BUN/Creatinine Ratio 18.4 Glucose 133 H Calcium 9.5 Magnesium 2.2 Troponin I High Sens 26 Radiography Diagnostic Testing: Radiology Impression Chest X-Ray 05/19/21 10:25 IMPRESSION: Emphysema without pneumonia or atelectasis. Electronically Signed: Fredi Madsen MD at 11:08 EDT Tel , Service support , EKG Initial EKG: Attestation: I personally reviewed and interpreted this EKG as follows: Comments: Atrial fibrillation with rapid ventricular response of 165 bpm. Follow-up EKG: Attestation: I personally reviewed and interpreted this EKG as follows: Comments: Sinus bradycardia at a rate of 48 bpm. No concerning features of ACS Discharge Plan Triage Chief Complaint: Palpitations ED Provider: Rob Morillo Dx/Rx/DC Orders Clinical Impression: Atrial fibrillation with RVR, Chest pain Instructions: ED AFIB Prescriptions: No Action hydrochlorothiazide 25 mg tablet 25 mg PO DAILY RF: 0 nitroglycerin 0.4 mg tablet, sublingual 0.4 mg sublingual Q5-15M PRNRF: 0 budesonide-formoterol 160-4.5 mcg/actuation HFA aerosol inhaler 2 puff inhalation BID RF: 0 clopidogrel 75 MG tablet 75 mg PO DAILY RF: 0 tramadol 50 MG tablet 1 tab PO BID PRN (Reason: Pain) RF: 0 clonazepam 1 mg tablet 2 mg PO BID PRN (Reason: anxiety) RF: 0 albuterol sulfate 18 GM HFA aerosol inhaler 2 puff inhalation Q4H PRN PRN (Reason: Sob &/Or Wheezing) RF: 0 metoprolol succinate 100 MG tablet extended release 24 hr 100 mg PO DAILY Qty: 30 RF: 0 lisinopril 20 mg tablet 20 mg PO DAILY RF: 0 Primary Care Provider: Adarsh Urbina Referrals: Nelida Santana [[facility]] - As Needed Activity Restrictions/Additional Instructions: Please call your hydraulic punch press operator on Thursday morning. Inquire about your anticoagulation. Please inform them that you were in the emergency room with atrial fibrillation and converted with medications. Disposition Disposition: Home, Self Care
[2021-05-19] MEDS: Metoprolol Tartrate 5 MG/5 ML Vial IV ×3 (09:45→10:09)
[2021-05-19 09:46] LABS: Absolute Neutrophil Count 4.7 X10^3/uL (2.0-7.7); Basophil# 0.06 X10^3/uL; Basophil% 0.8 % (0-1); Eosinophil# 0.12 X10^3/uL; Eosinophils% 1.6 % (0-5); Hematocrit 46.2 % (37-47); Lymphocyte % 25.8 % (19-41); Mean Corp Hgb Conc 32.5 g/dL (32-36); Mean Corpuscular Hgb 30.9 pg (27.0-32.0); Mean Corpuscular Volume 95.1 fL (81-99); Mean Platelet Vol. 10.4 fl (6.2-12.0); Monocyte# 0.61 X10^3/uL; Monocyte% 8.3 % (0-10); NRBC Flagged by Analyzer 0 % (0-5); Neutrophil # 4.65 X10^3/uL (2.7-7.7); Neutrophil % 63.2 % (47-70); Platelet Count 258 K/mm3 (150-450); RBC Distribution Width CV 13.3 % (11.6-14.6); RBC Distribution Width SD 46.9 fl (35.1-43.9); Red Blood Count 4.86 M/mm3 (4.2-5.4); White Blood Count 7.4 K/mm3 (4.4-11.0)
[2021-05-19] MEDS: Aspirin 81 MG TAB.CHEW 324 MG PO (09:48)
--- NOTE | 2021-05-19 09:48 | ED.RN ---
LOPRESSOR 5MG IV GIVEN BUT UNABLE TO CHART AT THIS TIME
[2021-05-19 10:00] LABS: Anion Gap 7 (5-15); BUN 15 mg/dL (7-18); BUN/Creat Ratio 18.4 RATIO (10-20); Calcium,Total 9.5 mg/dL (8.5-10.1); Chloride 108 mmol/L (98-107); Creatinine, Serum 0.82 mg/dL (0.55-1.02); EST Glomerular Filtration Rate 74 mL/min (>60); Est Glom Filt Rate - Afr Amer 89 mL/min (>60); Estimated Creatinine Clearance 60.62 ml/min; Glucose 133 mg/dL (74-106); Magnesium 2.2 mg/dL (1.6-2.6); Sodium Level 137 mmol/L (136-145); Troponin-I HS 26 pg/mL (3.0-54.0)
--- NOTE | 2021-05-19 10:25 | RAD_ITS ---
STUDY: X-RAY CHEST REASON FOR EXAM: Female, 70 years old. chest pain TECHNIQUE: Single AP portable view of the chest. COMPARISON: 01/07/2021 FINDINGS: There is hyperinflation of the lungs consistent with chronic obstructive lung disease (COPD). There is no demonstrated pleural abnormality. Normal size heart. Normal mediastinum and sheron. Normal visualized pulmonary arteries. Normal visualized aortic arch and descending thoracic aorta. Normal visualized thoracic spine. Normal visualized ribs, clavicles, and shoulders. There is no demonstrated abnormality of the visualized soft tissue structures of the upper abdomen. RAD/Chest 1 View (Portable) IMPRESSION: Emphysema without pneumonia or atelectasis. Electronically Signed: Fredi Madsen MD at 11:08 EDT Tel , Service support ,
[2021-05-19] MEDS: dilTIAZem 25 MG/5 ML Vial 20 MG IV BOLUS (11:16)
--- NOTE | 2021-05-19 12:12 | ED.RN ---
PT HR 49. DR. PETERSON INFORMED. CARDIAZEM STOPPED. REPEAT EKG.
--- NOTE | 2021-05-19 12:35 | EKG12_ITS ---
Test Reason : REPEAT Blood Pressure : / mmHG Vent. Rate : 048 BPM Atrial Rate : 048 BPM P-R Int : 128 ms QRS Dur : 086 ms QT Int : 520 ms P-R-T Axes : 009 042 080 degrees QTc Int : 464 ms Sinus bradycardia Nonspecific T wave abnormality Abnormal ECG Confirmed by LOGAN GRIMALDO, LEIA ([id number]), advertising editor LUH CUTLER ([id number]) on 05/21/2021 8:51:23 AM Referred By: Confirmed By:LEIA FORD MD
== END 2021-05-19 13:47 | disposition home or self-care (01) ==
PROVIDERS: Emergency Provider Emergency Medicine; PCP Family Medicine
DX: I48.0 Paroxysmal atrial fibrillation (principal); I10 Essential (primary) hypertension; E78.5 Hyperlipidemia, unspecified; G25.3 Myoclonus; I25.10 Atherosclerotic heart disease of native coronary artery without angina pectoris; J44.9 Chronic obstructive pulmonary disease, unspecified; K21.9 Gastro-esophageal reflux disease without esophagitis; K58.9 Irritable bowel syndrome, unspecified; Z86.2 Personal history of diseases of the blood and blood-forming organs and certain disorders involving the immune mechanism; Z87.19 Personal history of other diseases of the digestive system; Z79.02 Long term (current) use of antithrombotics/antiplatelets; Z79.899 Other long term (current) drug therapy; F17.200 Nicotine dependence, unspecified, uncomplicated
CPT/HCPCS: 71045; 80048; 83735; 84484; 85025; 93005; 96374; 96376; 99283; A4216

== ENCOUNTER 2021-07-11 12:30 | Emergency (ER) | payer MEDICARE, SELFPAY ==
[2021-07-11] VITALS (14 sets, daily range): BP systolic 115–151; BP diastolic 75–102; PULSE 79–132; RESP 16–23; TEMP 36.5–36.6; O2SAT 92–97; BMI 21.7
--- NOTE | 2021-07-11 13:22 | EKG12_ITS ---
Test Reason : A FIB Blood Pressure : / mmHG Vent. Rate : 131 BPM Atrial Rate : 312 BPM P-R Int : 000 ms QRS Dur : 078 ms QT Int : 320 ms P-R-T Axes : 000 042 080 degrees QTc Int : 472 ms Atrial flutter with variable A-V block Nonspecific T wave abnormality Abnormal ECG Confirmed by LOGAN GRIMALDO, LEIA ([id number]), editorial clerk LUH CUTLER ([id number]) on 07/12/2021 1:46:11 PM Referred By: GERDA Confirmed By:LEIA FORD MD
[2021-07-11] MEDS: dilTIAZem 25 MG/5 ML Vial 20 MG IV BOLUS (13:41)
--- NOTE | 2021-07-11 13:43 | ED.VIS.CHEST ---
HPI History of Present Illness Chief Complaint: Chest Pain Onset/Context/Timing Onset: Today Activity at onset: gradual Timing: Continuous Quality: Positive for Burning and Stabbing Location: Substernal Worsened By: Nothing Relieved By: Nothing Associated Symptoms: Positive for Palpitations; Negative for Nausea, Vomiting, Diaphoresis, Dyspnea, Cough, Fever, Lightheadedness and Acid Reflux Narrative Narrative: Patient presents with palpitations and chest pain that began today. Patient states she had some burning and stabbing pain in her substernal area. Patient states she usually gets this before she goes into atrial fibrillation. Patient states that she can feel herself going into atrial fibrillation. Patient states she has been converted medically for this in the past using metoprolol and Cardizem. Patient admits to a mild headache. Patient denies any shortness of breath or cough. Patient denies any nausea or vomiting. Prior Similar Symptoms: Yes PFSH PFSH Medical History Anemia Atherosclerotic heart disease of [place] coronary artery without angina pectoris COPD (chronic obstructive pulmonary disease) GERD (gastroesophageal reflux disease) History of left heart catheterization Hyperlipidemia Hypertension Irritable bowel Myoclonic disorder Paroxysmal atrial fibrillation with RVR Sigmoid diverticulitis Thyroid nodule Home Medications tramadol 1 tab PO BID PRN 04/19/19 [History Last Taken 11/15/19] albuterol sulfate 2 puff INHALATION Q4H PRN PRN 10/23/19 [History Last Taken 11/16/19] lisinopril 20 mg PO DAILY 01/08/21 [History Last Taken Unknown] budesonide-formoterol HFA 160 mcg-4.5 mcg/actuation aerosol inhaler 2 puff INHALATION BID 02/05/21 [History Last Taken Unknown] clonazepam 1 mg tablet 2 mg PO BID PRN 02/05/21 [History Last Taken Unknown] hydrochlorothiazide 25 mg tablet 25 mg PO DAILY 02/05/21 [History Last Taken Unknown] nitroglycerin 0.4 mg sublingual tablet 0.4 mg SUBLINGUAL Q5-15M PRN 02/05/21 [History Last Taken Unknown] apixaban [Eliquis] 5 mg PO BID #74 tab 07/11/21 [Rx Last Taken Unknown] clopidogrel 75 mg PO DAILY #30 tab 07/11/21 [Rx Last Taken Unknown] metoprolol succinate 100 mg PO DAILY #30 tab.er.24h 07/11/21 [Rx Last Taken Unknown] Allergy/AdvReac Type Severity Reaction Status Date / Time levofloxacin [From Levaquin] Allergy Rash Verified 07/11/21 12:32 phenytoin [From Dilantin] Allergy Swelling Verified 07/11/21 12:32 sertraline AdvReac Intermediate anxiety Verified 07/11/21 12:32 Family History Mother Hypertension CVA (cerebral vascular accident) CAD (coronary artery disease) Father Colon cancer Leukemia Throat cancer Surgical History History of breast lump removal History of coronary artery stent placement History of lobectomy of thyroid History of thyroidectomy History of total abdominal hysterectomy Social History Smoking Status: Heavy Smoker (>10/day) substance use type: does not use ROS ROS ED Constitutional Constitutional ED: Denies chills or fever(s) Eyes Eyes: Denies blurry vision or change in vision ENT ENT ED: Denies rhinorrhea or sore throat Cardiovascular Cardiovascular: Reports chest pain and palpitations Respiratory/Chest Respiratory/Chest: Reports dyspnea; Denies cough Gastrointestinal Gastrointestinal: Reports nausea; Denies abdominal pain or vomiting Genitourinary Genitourinary ED: Denies dysuria or hematuria Musculoskeletal Musculoskeletal: Denies back pain or neck pain Integumentary Denies abscess or rash Neurologic Neurologic: Reports headache(s); Denies weakness Allergic/Immunologic Allergic/Immunologic ED: Denies mouth swelling or urticaria EXAM Physical Exam Const Vital Signs: 07/11/21 12:30 07/11/21 13:38 07/11/21 13:41 Temperature 97.7 F L Temperature Source Temporal Pulse Rate 132 H 91 Respiratory Rate 16 19 H Respiratory Effort Normal Non-Labored Blood Pressure 151/96 H Blood Pressure Mean 114 Blood Pressure Position Blood Pressure Location Pulse Ox 97 95 Oxygen Delivery Method Room Air Room Air 07/11/21 14:00 07/11/21 14:35 07/11/21 15:15 Temperature 97.8 F Temperature Source Oral Pulse Rate 115 H 86 79 Respiratory Rate 17 16 16 Respiratory Effort Blood Pressure 141/93 H 122/79 H 132/102 H Blood Pressure Mean 109 93 112 Blood Pressure Position Sitting Blood Pressure Location Right Arm Pulse Ox 92 94 Oxygen Delivery Method Room Air Room Air 07/11/21 16:13 07/11/21 16:57 07/11/21 17:00 Temperature Temperature Source Pulse Rate 99 92 109 H Respiratory Rate 23 H Respiratory Effort Blood Pressure 131/88 H Blood Pressure Mean 102 Blood Pressure Position Blood Pressure Location Pulse Ox Oxygen Delivery Method 07/11/21 17:08 07/11/21 17:36 07/11/21 17:38 Temperature Temperature Source Pulse Rate 80 111 H 109 H Respiratory Rate 21 H Respiratory Effort Blood Pressure 145/95 H 145/95 H Blood Pressure Mean 111 111 Blood Pressure Position Blood Pressure Location Pulse Ox 93 Oxygen Delivery Method Room Air 07/11/21 17:44 07/11/21 17:46 Temperature Temperature Source Pulse Rate 93 99 Respiratory Rate 22 H Respiratory Effort Blood Pressure 117/75 Blood Pressure Mean 89 Blood Pressure Position Blood Pressure Location Pulse Ox 92 Oxygen Delivery Method Room Air Positive well nourished and well developed General Appearance ED: well developed HEENT Reports moist mucous membranes Neck supple and no JVD Resp normal respiratory effort Effort and Inspection: respiratory distress Cardio Rate: tachycardic Rhythm: abnormal rhythm irregularly irregular GI normal to inspection, nondistended, normoactive bowel sounds, soft to palpation and non-tender Neuro oriented x3, CN's II-XII intact bilaterally and no sensory deficits noted Sensorium / Orientation: awake and alert Motor Exam: strength 5/5 throughout Psych mental status grossly normal Heart Score History: Slightly/Non-Suspicious ECG: Nonspecific Repolarization Age: >/= 65 years Risk Factors: >/= 3 Risk Factors or History of CAD Troponin: </= Normal Limit Score: 5 MDM MDM MDM Narrative Medical decision making narrative: EKG was obtained. On my interpretation, shows atrial fibrillation with a rate of 131. QRS interval was normal. QTc interval was normal. [place] was normal. There are nonspecific ST-T wave changes. Patient was given a dose of Cardizem here. Patient was given a Cardizem drip. Patient's rate improved but she is still in atrial fibrillation. CBC and comprehensive metabolic profile were within normal limits. High-sensitivity troponin was normal. 2-hour repeat high-sensitivity troponin was normal and unchanged. Patient was given a dose of metoprolol. Patient did not convert to a sinus rhythm with this. Patient was given a repeat dose of metoprolol. Case was discussed with Dr. Steward from cardiology. Patient does not want to be electrically cardioverted. Patient does not want to be admitted to the hospital. Because of this, patient will be given prescriptions for metoprolol and Eliquis. Patient was also given a refill of her Plavix prescription. Patient was instructed to follow-up with her trim carpenter in 3 to 5 days. Patient was instructed return if worse in any way. Patient understood and was agreeable with the plan. All questions were answered. Lab Data Attestation: I reviewed the patient's lab results. Labs: Laboratory Results - last 24 hr 07/11/21 07/11/21 07/11/21 12:50 12:50 15:55 WBC 6.8 RBC 4.35 Hgb 13.3 Hct 41.3 MCV 94.9 MCH 30.6 MCHC 32.2 RDW Std Deviation 47.8 H RDW Coeff of Claudia 13.6 Plt Count 281 MPV 10.8 Immature Gran % (Auto) 0.300 Neut % (Auto) 64.1 Lymph % (Auto) 23.9 [place] % (Auto) 8.3 Eos % (Auto) 2.5 Baso % (Auto) 0.9 Absolute Neuts (auto) 4.4 Absolute Lymphs (auto) 1.63 Nucleated RBC % 0 Sodium 145 Potassium 4.0 Chloride 113 H Carbon Dioxide 26.0 Anion Gap 6 BUN 11 Creatinine 0.75 Estim Creat Clear Calc 49.70 Est GFR (MDRD) Af Amer 98 Est GFR (MDRD) Non-Af 81 BUN/Creatinine Ratio 14.7 Glucose 93 Calcium 9.1 Total Bilirubin 0.20 AST 14 L ALT 18 Alkaline Phosphatase 86 Troponin I High Sens 24 25 Total Protein 7.4 Albumin 3.6 Globulin 3.8 Albumin/Globulin Ratio 0.9 EKG Initial EKG: Attestation: I personally reviewed and interpreted this EKG as follows: Interpretation: Atrial Fibrillation (131) and Non-Specific ST Changes Prior EKG tracings: available for review Prior: Unchanged (05/19/2021) Discharge Plan Triage Chief Complaint: Chest Pain ED Provider: Luis Monzon Dx/Rx/DC Orders Clinical Impression: Atrial fibrillation with RVR Instructions: ED AFIB Prescriptions: New Eliquis 5 MG tablet 5 mg PO BID Qty: 74 RF: 0 Continued metoprolol succinate 100 MG tablet extended release 24 hr 100 mg PO DAILY Qty: 30 RF: 0 clopidogrel 75 MG tablet 75 mg PO DAILY Qty: 30 RF: 0 No Action hydrochlorothiazide 25 mg tablet 25 mg PO DAILY RF: 0 nitroglycerin 0.4 mg tablet, sublingual 0.4 mg sublingual Q5-15M PRN (Reason: Chest Pain) RF: 0 budesonide-formoterol 160-4.5 mcg/actuation HFA aerosol inhaler 2 puff inhalation BID RF: 0 tramadol 50 MG tablet 1 tab PO BID PRN (Reason: Pain) RF: 0 clonazepam 1 mg tablet 2 mg PO BID PRN (Reason: anxiety) RF: 0 albuterol sulfate 18 GM HFA aerosol inhaler 2 puff inhalation Q4H PRN PRN (Reason: Sob &/Or Wheezing) RF: 0 lisinopril 20 mg tablet 20 mg PO DAILY RF: 0 Primary Care Provider: Adarsh Urbina Referrals: Adarsh Urbina MD [Primary Care Provider] - 5-7 Days Talon Pineda MD [NON-STAFF] - 3-5 Days Disposition Disposition: Home, Self Care
[2021-07-11 13:58] LABS: Absolute Lymphocyte Count 1.63 X10^3/uL (0.83-4.51); Absolute Neutrophil Count 4.4 X10^3/uL (2.0-7.7); Basophil# 0.06 X10^3/uL; Basophil% 0.9 % (0-1); Eosinophil# 0.17 X10^3/uL; Eosinophils% 2.5 % (0-5); Hematocrit 41.3 % (37-47); Hemoglobin 13.3 g/dL (12.0-15.0); Lymphocyte # 1.63 X10^3/ul (0.83-4.51); Lymphocyte % 23.9 % (19-41); Mean Corp Hgb Conc 32.2 g/dL (32-36); Mean Corpuscular Hgb 30.6 pg (27.0-32.0); Mean Corpuscular Volume 94.9 fL (81-99); Mean Platelet Vol. 10.8 fl (6.2-12.0); Monocyte# 0.57 X10^3/uL; Monocyte% 8.3 % (0-10); NRBC Flagged by Analyzer 0 % (0-5); Neutrophil # 4.38 X10^3/uL (2.7-7.7); Neutrophil % 64.1 % (47-70); Platelet Count 281 K/mm3 (150-450); RBC Distribution Width CV 13.6 % (11.6-14.6); RBC Distribution Width SD 47.8 fl (35.1-43.9); Red Blood Count 4.35 M/mm3 (4.2-5.4); White Blood Count 6.8 K/mm3 (4.4-11.0)
[2021-07-11 14:11] LABS: ALB/GLOB Ratio 0.9 RATIO (0.9-2.4); AST(SGOT) 14 U/L (15-37); Alanine Aminotransfer ALT/SGPT 18 U/L (13-56); Albumin, Serum 3.6 g/dL (3.2-5.0); Alkaline Phosphatase 86 U/L (45-117); Anion Gap 6 (5-15); BUN 11 mg/dL (7-18); BUN/Creat Ratio 14.7 RATIO (10-20); Calcium,Total 9.1 mg/dL (8.5-10.1); Chloride 113 mmol/L (98-107); Creatinine, Serum 0.75 mg/dL (0.55-1.02); EST Glomerular Filtration Rate 81 mL/min (>60); Est Glom Filt Rate - Afr Amer 98 mL/min (>60); Globulin 3.8 g/dL (2.2-4.2); Glucose 93 mg/dL (74-106); Protein, Total 7.4 g/dL (6.4-8.2); Sodium Level 145 mmol/L (136-145); Troponin-I HS 24 pg/mL (3.0-54.0)
[2021-07-11] MEDS: Acetaminophen 500 MG Tablet 1000 MG PO (14:34)
[2021-07-11 16:25] LABS: Troponin-I HS 25 pg/mL (3.0-54.0)
[2021-07-11] MEDS: Metoprolol Tartrate 5 MG/5 ML Vial IV ×2 (17:03→17:41)
== END 2021-07-11 18:49 | disposition home or self-care (01) ==
PROVIDERS: Emergency Provider Emergency Medicine; PCP Family Medicine
DX: I48.0 Paroxysmal atrial fibrillation (principal); I10 Essential (primary) hypertension; E04.1 Nontoxic single thyroid nodule; G25.3 Myoclonus; E78.5 Hyperlipidemia, unspecified; I25.10 Atherosclerotic heart disease of native coronary artery without angina pectoris; J44.9 Chronic obstructive pulmonary disease, unspecified; K21.9 Gastro-esophageal reflux disease without esophagitis; K58.9 Irritable bowel syndrome, unspecified; Z87.19 Personal history of other diseases of the digestive system; Z95.5 Presence of coronary angioplasty implant and graft; Z79.01 Long term (current) use of anticoagulants; Z79.899 Other long term (current) drug therapy; F17.200 Nicotine dependence, unspecified, uncomplicated
CPT/HCPCS: 80053; 84484; 85025; 93005; 99285; J7050; A4216

== ENCOUNTER 2021-07-13 10:22 | Inpatient (IN) | payer MEDICARE, SELFPAY ==
[2021-07-13] VITALS (27 sets, daily range): BP systolic 97–160; BP diastolic 59–96; PULSE 52–155; RESP 16–26; TEMP 36.2–36.8; O2SAT 93–100; BMI 24.0; BMI 23.4
--- NOTE | 2021-07-13 10:27 | EKG12_ITS ---
Test Reason : CP/PALPS Blood Pressure : / mmHG Vent. Rate : 159 BPM Atrial Rate : 153 BPM P-R Int : 000 ms QRS Dur : 082 ms QT Int : 300 ms P-R-T Axes : 000 044 104 degrees QTc Int : 488 ms Atrial fibrillation Nonspecific ST and T wave abnormality Abnormal ECG Confirmed by LOGAN GRIMALDO, LEIA ([id number]), editor index [facility] CUTLER ([id number]) on 07/18/2021 9:04:16 AM Referred By: NATY Confirmed By:LEIA FORD MD
--- NOTE | 2021-07-13 10:38 | EKG12_ITS ---
Test Reason : RHYTHM CHANGE Blood Pressure : / mmHG Vent. Rate : 056 BPM Atrial Rate : 056 BPM P-R Int : 140 ms QRS Dur : 082 ms QT Int : 454 ms P-R-T Axes : 030 043 100 degrees QTc Int : [address] & T wave abnormality, consider lateral ischemia Abnormal ECG When compared with ECG of 13-JUL-2021 10:27, MANUAL COMPARISON REQUIRED, DATA IS UNCONFIRMED Confirmed by JUANA GRIMALDO, PRINCESS ([id number]), editorial writer L[facility] CUTLER ([id number]) on 07/16/2021 12:28:06 P M Referred By: FÉLIX Confirmed By:SHASTA ARIAS MD
--- NOTE | 2021-07-13 10:39 | ED.VIS.CHEST ---
HPI History of Present Illness Chief Complaint: Chest Pain Detail of Chief Complaint: Recurrent A. fib RVR Informant: patient Onset/Context/Timing Onset: Days Activity at onset: sudden Timing: Continuous Quality: Positive for Burning Current Severity: Mild Maximum Severity: Mild Worsened By: Nothing Relieved By: Nothing Associated Symptoms: Positive for Palpitations; Negative for Nausea, Vomiting, Diaphoresis, Dyspnea, Cough, Fever, Lightheadedness and Acid Reflux Narrative Narrative: 70-year-old female history of anemia, CAD with cardiac stents on Plavix and now Eliquis. COPD and history of A. fib for the last year. Intermittent. She had been in A. fib for several months she presented to the emergency department on in A. fib. I discussed with her cardioversion which she did not want done at that time. She went home with controlled A. fib but now is back with A. fib RVR. She states when she gets that she gets burning chest discomfort. She is on Plavix for her cardiac stents and she is on Eliquis since for her A. fib. Prior Similar Symptoms: Yes Recent Illness/Hospitalization: No CVD Risk Factors: Positive for Smoking; Negative for Diabetes PE Risk Factors: Negative for Recent Travel/Surgery, Recent Immobilization, Prior DVT or PE, Cancer and OCP + Smoking + >/=35 TAD Risk Factors: Negative for Marfan's Syndrome, Hypertension and Family History [facility] Medical History Anemia Atherosclerotic heart disease of [place] coronary artery without angina pectoris COPD (chronic obstructive pulmonary disease) GERD (gastroesophageal reflux disease) History of left heart catheterization Hyperlipidemia Hypertension Irritable bowel Myoclonic disorder Paroxysmal atrial fibrillation with RVR Sigmoid diverticulitis Thyroid nodule Home Medications tramadol 1 tab PO BID PRN 04/19/19 [History Last Taken 11/15/19] albuterol sulfate 2 puff INHALATION Q4H PRN PRN 10/23/19 [History Last Taken 11/16/19] lisinopril 20 mg PO DAILY 01/08/21 [History Last Taken Unknown] budesonide-formoterol HFA 160 mcg-4.5 mcg/actuation aerosol inhaler 2 puff INHALATION BID 02/05/21 [History Last Taken Unknown] clonazepam 1 mg tablet 2 mg PO BID PRN 02/05/21 [History Last Taken Unknown] hydrochlorothiazide 25 mg tablet 25 mg PO DAILY 02/05/21 [History Last Taken Unknown] nitroglycerin 0.4 mg sublingual tablet 0.4 mg SUBLINGUAL Q5-15M PRN 02/05/21 [History Last Taken Unknown] apixaban [Eliquis] 5 mg PO BID #74 tab 07/11/21 [Rx Last Taken Unknown] clopidogrel 75 mg PO DAILY #30 tab 07/11/21 [Rx Last Taken Unknown] metoprolol succinate 100 mg PO DAILY #30 tab.er.24h 07/11/21 [Rx Last Taken Unknown] Allergy/AdvReac Type Severity Reaction Status Date / Time levofloxacin [From Levaquin] Allergy Rash Verified 07/11/21 12:32 phenytoin [From Dilantin] Allergy Swelling Verified 07/11/21 12:32 sertraline AdvReac Intermediate anxiety Verified 07/11/21 12:32 Family History Mother Hypertension CVA (cerebral vascular accident) CAD (coronary artery disease) Father Colon cancer Leukemia Throat cancer Surgical History History of breast lump removal History of coronary artery stent placement History of lobectomy of thyroid History of thyroidectomy History of total abdominal hysterectomy Social History Smoking Status: Heavy Smoker (>10/day) substance use type: does not use ROS ROS ED ROS Narrative Palpitations. Review of Systems ROS Unobtainable: Denies due to encephalopathy Constitutional Constitutional ED: Denies fever(s) Eyes Eyes: Denies none ENT ENT ED: Denies ear pain Cardiovascular Cardiovascular: Reports as per HPI, chest pain, palpitations and racing heartbeat Respiratory/Chest Respiratory/Chest: Denies cough or dyspnea Gastrointestinal Gastrointestinal: Denies abdominal pain, diarrhea, nausea or vomiting Genitourinary Genitourinary ED: Denies dysuria Musculoskeletal Musculoskeletal: Denies myalgias Integumentary Denies rash Neurologic Neurologic: Denies headache(s) Psychiatric Psychiatric: Denies depression Endocrine Endocrinology: Denies polyuria Hematologic/Lymphatic Hematologic/Lymphatic: Denies easy bruising Allergic/Immunologic Allergic/Immunologic ED: Denies urticaria EXAM Physical Exam Narrative Exam Narrative: 70-year-old female vital signs she is in A. fib RVR heart rate 155 otherwise her blood pressure is 160/83 she is tolerating it well. Lungs are clear. Heart irregular irregular rate of 155 consistent with A. fib. Abdomen soft nontender. Moving all 4 extremities. No edema. Neurologically she is awake and alert. Const Vital Signs: 07/13/21 10:23 07/13/21 10:50 Temperature 98.3 F Temperature Source Oral Pulse Rate 155 H Respiratory Rate 17 Blood Pressure 160/83 H Blood Pressure Mean 108 Pulse Ox 97 Oxygen Delivery Method Room Air Room Air Positive well nourished and well developed; Negative for obese, cachectic, contractures or unkempt General Appearance ED: well developed; Negative for unkempt, cachectic, contractures or pallor Nutritional Appearance: Negative for cachectic or obese HEENT Reports moist mucous membranes normocephalic and atraumatic; Negative for trauma or tenderness Eyes PERRL and EOMs intact bilaterally Neck no lymphadenopathy, supple and no JVD General: Negative for tenderness Chest Wall inspection of chest normal and palpation of chest normal Resp normal respiratory effort and clear to auscultation bilaterally Effort and Inspection: respiratory distress Auscultation: Negative for rales, rhonchi or wheezes Cardio no murmurs Rate: tachycardic Rhythm: abnormal rhythm GI normal to inspection, nondistended, normoactive bowel sounds, soft to palpation, non-tender, non-distended and no masses Back/Spine no CVA tenderness Extremity normal to inspection General Extremety ED: Negative for edema or tenderness General Extremity: Negative for edema Neuro oriented x3 Sensorium / Orientation: awake, alert, oriented to person, oriented to place and oriented to time Motor Exam: strength 5/5 throughout Psych mental status grossly normal Appearance: Negative for unkempt Skin no rashes or lesions noted and no wounds General Skin Exam: Negative for jaundice or pallor Heart Score History: Slightly/Non-Suspicious Age: >/= 65 years Risk Factors: >/= 3 Risk Factors or History of CAD Score: 4 MDM MDM MDM Narrative Medical decision making narrative: 70-year-old female recurrent A. fib RVR. Will be placed in a cardiac work-up. She will be given IV Cardizem 25 mg to try to control her rate. She and I will discuss other treatment options and admission versus discharge to home once her work-up is complete. Discussed with patient daughter at length at bedside. Patient was hoping not to be admitted if all possible. She chose cardioversion. She was sedated with propofol a total of 70 mg IV. She had not eaten at all today. Conscious sedation worked well. She was cardioverted 3 different times but each time successively quickly went back in A. fib RVR. She will be placed on a Cardizem drip and be admitted. I have the hospitalist on page. Patient is waking up and doing well after conscious sedation and cardioversion. Lab Data Attestation: I reviewed the patient's lab results. Lab results narrative: CBC shows a white count of 7. Hemoglobin 14.8. Chemistries unremarkable gap at 9 normal creatinine. Glucose 153 troponin normal at 22. Labs: Laboratory Results - last 24 hr 07/13/21 07/13/21 10:32 10:32 WBC 7.0 RBC 4.79 Hgb 14.8 Hct 45.7 MCV 95.4 MCH 30.9 MCHC 32.4 RDW Std Deviation 48.2 H RDW Coeff of Claudia 13.6 Plt Count 280 MPV 10.3 Immature Gran % (Auto) 0.100 Neut % (Auto) 68.7 Lymph % (Auto) 19.5 [place] % (Auto) 8.5 Eos % (Auto) 2.3 Baso % (Auto) 0.9 Absolute Neuts (auto) 4.8 Absolute Lymphs (auto) 1.36 Nucleated RBC % 0 Sodium 143 Potassium 4.1 Chloride 109 H Carbon Dioxide 25.0 Anion Gap 9 BUN 13 Creatinine 0.91 Estim Creat Clear Calc 54.62 Est GFR (MDRD) Af Amer 78 Est GFR (MDRD) Non-Af 65 BUN/Creatinine Ratio 14.2 Glucose 153 H Calcium 8.9 Troponin I High Sens 22 Radiography Chest X-Ray - ED: 1 View, Read by ED Physician, Heart, Lungs, Mediastinum, Bony Structures, No Acute Disease and Chronic Changes Diagnostic Testing: Check x-ray single view interpreted by myself shows chronic changes consistent with COPD but no signs of failure or effusion. Rhythm Strip Rhythm Strip: A-fib Rate: 159 EKG Initial EKG: Attestation: I personally reviewed and interpreted this EKG as follows: Interpretation: No Acute Injury Pattern and Atrial Fibrillation Comments: Atrial fibrillation RVR with a rate of 159. Rate dependent ischemia. Similar to a recent EKG from July 11 with A. fib RVR at that time also. Prior: Unchanged Procedures Other Procedures Procedure(s): Conscious sedation and cardioversion of A. fib: Discussed the procedure with the patient at length. Placed on the monitor O2 and defibrillator pads were placed. She was given propofol a total of 70 mg over several minutes. With good deep conscious sedation she was cardioverted initially with 200 J then accelerating second dose and it a third cardioversion at 360. She would only stay in a sinus rhythm for several seconds and then return immediately the A. fib RVR. I did not think further attempts at cardioversion would be successful or in the patient's best interest. She will be started on a Cardizem drip and admitted. Critical Care Time Critical care time (excluding procedures): 30-74 minutes, Discussing w/Patient &/or Family/Nursing Home Assistant Administrator, Discussing w/Consultants, Arranging Admission or Transfer, Performing Direct Patient Care at Bedside and - (32 min) Discharge Plan Dx/Rx/DC Orders Clinical Impression: Atrial fibrillation with rapid ventricular response, COPD (chronic obstructive pulmonary disease), Chest pain, History of coronary artery disease Disposition Disposition: Acute Care Hospital [facility]
[2021-07-13] MEDS: dilTIAZem 25 MG/5 ML Vial IV BOLUS (10:45)
[2021-07-13 10:46] LABS: Absolute Lymphocyte Count 1.36 X10^3/uL (0.83-4.51); Absolute Neutrophil Count 4.8 X10^3/uL (2.0-7.7); Basophil# 0.06 X10^3/uL; Basophil% 0.9 % (0-1); Eosinophil# 0.16 X10^3/uL; Eosinophils% 2.3 % (0-5); Hematocrit 45.7 % (37-47); Hemoglobin 14.8 g/dL (12.0-15.0); Lymphocyte # 1.36 X10^3/ul (0.83-4.51); Lymphocyte % 19.5 % (19-41); Mean Corp Hgb Conc 32.4 g/dL (32-36); Mean Corpuscular Hgb 30.9 pg (27.0-32.0); Mean Corpuscular Volume 95.4 fL (81-99); Mean Platelet Vol. 10.3 fl (6.2-12.0); Monocyte# 0.59 X10^3/uL; Monocyte% 8.5 % (0-10); NRBC Flagged by Analyzer 0 % (0-5); Neutrophil # 4.78 X10^3/uL (2.7-7.7); Neutrophil % 68.7 % (47-70); Platelet Count 280 K/mm3 (150-450); RBC Distribution Width CV 13.6 % (11.6-14.6); RBC Distribution Width SD 48.2 fl (35.1-43.9); Red Blood Count 4.79 M/mm3 (4.2-5.4)
[2021-07-13 11:08] LABS: Anion Gap 9 (5-15); BUN 13 mg/dL (7-18); BUN/Creat Ratio 14.2 RATIO (10-20); Calcium,Total 8.9 mg/dL (8.5-10.1); Chloride 109 mmol/L (98-107); Creatinine, Serum 0.91 mg/dL (0.55-1.02); EST Glomerular Filtration Rate 65 mL/min (>60); Est Glom Filt Rate - Afr Amer 78 mL/min (>60); Estimated Creatinine Clearance 54.62 ml/min; Glucose 153 mg/dL (74-106); Potassium 4.1 mmol/L (3.5-5.1); Sodium Level 143 mmol/L (136-145); Troponin-I HS 22 pg/mL (3.0-54.0)
--- NOTE | 2021-07-13 11:10 | RAD_ITS ---
STUDY: X-RAY CHEST REASON FOR EXAM: Female, 70 years old. Chest pain TECHNIQUE: Single AP portable view of the chest. COMPARISON: 05/19/2021. FINDINGS: Mild stranding in both lung bases. No focal infiltrate is seen. There is no demonstrated pleural abnormality. There is borderline cardiomegaly. Normal mediastinum and sheron. Normal visualized pulmonary arteries. There is atherosclerotic tortuosity of the aortic arch and descending thoracic aorta. Stable osseous structures. There is no demonstrated abnormality of the visualized soft tissue structures of the upper abdomen. RAD/Chest 1 View (Portable) IMPRESSION: Atelectatic changes or scarring in the lung bases. No new infiltrate is seen. Electronically Signed: Donta Herron MD at 11:23 EDT Tel , Service support ,
[2021-07-13] MEDS: Propofol 200 MG/20 ML Vial 40 MG IV BOLUS (12:28)
[2021-07-13 12:44] LABS: Magnesium 2.2 mg/dL (1.6-2.6)
--- NOTE | 2021-07-13 12:46 | NURSING ---
102 RAZIA AFIB RVR, CP, CAD
--- NOTE | 2021-07-13 13:07 | CON.PCM.CA_ITS ---
Assessment & Plan Assessment/Plan (1) COPD (chronic obstructive pulmonary disease): (2) History of coronary artery disease: (3) History of coronary artery stent placement: (4) Secondary pulmonary hypertension: (5) Paroxysmal atrial fibrillation with RVR: PLAN: This patient presented to the ER with A. fib with rapid ventricular rate. Patient is stable hemodynamically in the ER Recently discharged from the ER with rate control and started on anticoagulation with Eliquis. Her established strategic partnership specialist is at [facility] According to history from patient and daughter she has cardioversion/DCCV x3 by the cardiology team in [facility] and she came over here at [facility] with palpitation evidently she was here recently discharged home on rate control anticoagulation and now seen back in the ER with A. fib and rapid ventricular rate with atypical symptoms of chest pain Patient had a history of CAD prior coronary artery stent, COPD and she continues to smoke and on a prior echocardiogram she had moderate pulmonary hypertension with RV systolic pressure of around 54 mmHg. Cardiac assessment and recommendations; 1. Patient has been on medical treatment with Multaq, Plavix and currently on anticoagulation Eliquis 2. She had a discussion with her primary strategic partnership specialist regarding A. fib ablation 3. Continue rate control with Cardizem if needed we will add low-dose beta- fariba 4. Patient would like to discuss further with her primary strategic partnership specialist on discharge. Regarding A. fib ablation HPI Consult Data Date of Consult: 07/13/21 HPI Narrative Reason for Consultation: A. fib with RVR HPI Narrative: ANTON MOISE, is a 70 F who presents [facility] Medical History Anemia Atherosclerotic heart disease of [place] coronary artery without angina pectoris COPD (chronic obstructive pulmonary disease) GERD (gastroesophageal reflux disease) History of left heart catheterization Hyperlipidemia Hypertension Irritable bowel Myoclonic disorder Paroxysmal atrial fibrillation with RVR Sigmoid diverticulitis Thyroid nodule Home Medications tramadol 1 tab PO BID PRN 04/19/19 [History Last Taken 11/15/19] albuterol sulfate 2 puff INHALATION Q4H PRN PRN 10/23/19 [History Last Taken 11/16/19] lisinopril 20 mg PO DAILY 01/08/21 [History Last Taken Unknown] budesonide-formoterol HFA 160 mcg-4.5 mcg/actuation aerosol inhaler 2 puff INHALATION BID 02/05/21 [History Last Taken Unknown] clonazepam 1 mg tablet 2 mg PO BID PRN 02/05/21 [History Last Taken Unknown] hydrochlorothiazide 25 mg tablet 25 mg PO DAILY 02/05/21 [History Last Taken Unknown] nitroglycerin 0.4 mg sublingual tablet 0.4 mg SUBLINGUAL Q5-15M PRN 02/05/21 [History Last Taken Unknown] apixaban [Eliquis] 5 mg PO BID #74 tab 07/11/21 [Rx Last Taken Unknown] clopidogrel 75 mg PO DAILY #30 tab 07/11/21 [Rx Last Taken Unknown] metoprolol succinate 100 mg PO DAILY #30 tab.er.24h 07/11/21 [Rx Last Taken Unknown] Allergy/AdvReac Type Severity Reaction Status Date / Time levofloxacin [From Levaquin] Allergy Rash Verified 07/11/21 12:32 phenytoin [From Dilantin] Allergy Swelling Verified 07/11/21 12:32 sertraline AdvReac Intermediate anxiety Verified 07/11/21 12:32 Family History Mother Hypertension CVA (cerebral vascular accident) CAD (coronary artery disease) Father Colon cancer Leukemia Throat cancer Surgical History History of breast lump removal History of coronary artery stent placement History of lobectomy of thyroid History of thyroidectomy History of total abdominal hysterectomy Social History Smoking Status: Heavy Smoker (>10/day) substance use type: does not use Physical Exam Narrative Patient seen and evaluated at bedside in the emergency department along with the medical team and her daughter at bedside She is not in acute distress 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 Risk Stratification Risk Stratification Applicable: No Objective Data Vital Signs: Vital Signs Temp Pulse Resp BP Pulse Ox 97.2 F L 113 H 20 H 110/80 96 07/13/21 12:42 07/13/21 12:42 07/13/21 12:42 07/13/21 12:42 07/13/21 12:42 Oxygen Flow Rate (L/min) [4] 2 Oxygen Flow Rate (L/min) [3] 4 Oxygen Flow Rate (L/min) [1 ( 2 Initial Baseline)] Oxygen Flow Rate (L/min) 2 Oxygen Delivery Method [4] Nasal Cannula Oxygen Delivery Method [3] Nasal Cannula Oxygen Delivery Method [1 ( Nasal Cannula Initial Baseline)] Oxygen Delivery Method Room Air Weight: 149 lb 4.047 oz Body Mass Index (BMI) 24.0 Lab / Micro Data Result Diagrams: 07/13/21 10:32 07/13/21 10:32 Labs: Laboratory Results - last 24 hr 07/13/21 10:32: WBC 7.0, RBC 4.79, Hgb 14.8, Hct 45.7, MCV 95.4, MCH 30.9, MCHC 32.4, RDW Std Deviation 48.2 H, RDW Coeff of Claudia 13.6, Plt Count 280, MPV 10.3, Immature Gran % (Auto) 0.100, Neut % (Auto) 68.7, Lymph % (Auto) 19.5, [place] % (Auto) 8.5, Eos % (Auto) 2.3, Baso % (Auto) 0.9, Absolute Neuts (auto) 4.8, Absolute Lymphs (auto) 1.36, Nucleated RBC % 0 07/13/21 10:32: Sodium 143, Potassium 4.1, Chloride 109 H, Carbon Dioxide 25.0, Anion Gap 9, BUN 13, Creatinine 0.91, Estim Creat Clear Calc 54.62, Est GFR (MDRD) Af Amer 78, Est GFR (MDRD) Non-Af 65, BUN/Creatinine Ratio 14.2, Glucose 153 H, Calcium 8.9, Troponin I High Sens 22 07/13/21 10:32: Magnesium 2.2 Rhythm Strip Rhythm Strip: A-fib Rate: 159 Cardiology Labs/Tests 07/13/21 10:32: WBC 7.0, RBC 4.79, Hgb 14.8, Hct 45.7, MCV 95.4, MCH 30.9, MCHC 32.4, Plt Count 280, MPV 10.3, Immature Gran % (Auto) 0.100, Neut % (Auto) 68.7, Lymph % (Auto) 19.5, [place] % (Auto) 8.5, Eos % (Auto) 2.3, Baso % (Auto) 0.9, Absolute Neuts (auto) 4.8, Nucleated RBC % 0 07/13/21 10:32: Sodium 143, Potassium 4.1, Chloride 109 H, Carbon Dioxide 25.0, Anion Gap 9, BUN 13, Creatinine 0.91, Est GFR (MDRD) Af Amer 78, Est GFR (MDRD) Non-Af 65, BUN/Creatinine Ratio 14.2, Glucose 153 H, Calcium 8.9 07/13/21 10:32: Magnesium 2.2 Rhythm: A. fib with RVR EKG: Atrial fibrillation with rapid ventricular rate. Radiography Diagnostic Testing: Radiology Impression Chest X-Ray 07/13/21 11:10 IMPRESSION: Atelectatic changes or scarring in the lung bases. No new infiltrate is seen. Electronically Signed: Donta Herron MD at 11:23 EDT Tel , Service support ,
--- NOTE | 2021-07-13 13:19 | HP.PCM.HOS_ITS ---
Documented by User: Jose BONE 07/13/21 13:46 HPI - General General Date of Admission: 07/13/21 HPI Narrative ANTON MOISE is a 70-year-old female who presents to the ED at [facility] on 07/13/2021 with a chief complaint of chest pain and atrial fibrillation. Patient has been diagnosed with A. fib for several months and recently presented to the ED on 07/11 in A. fib. Rate was converted back to sinus rhythm with medications and patient was sent home. Today patient presents stating that her A. fib is uncontrolled and she can feel a burning chest discomfort and heart palpitation. Breath, diaphoresis, lightheadedness, fever or N/V/D. Of note, patient is on metoprolol 100 mg p.o. daily for rate control and Eliquis 5 mg p.o. twice daily for anticoagulation. Vital signs in the ED are T of 97.2, HR of 113, BP 110/80, RR of 20 and is currently satting 96% on room air. EKG obtained in the ED demonstrated A. fib with RVR. Chest x-ray obtained in the ED demonstrated atelectasis with scarring at the lung bases, no evidence of infiltrate. CBC is unremarkable. BMP is unremarkable. High-sensitivity troponins not elevated. Dr. Hoyos was contacted in the ED and agreed to be consulted on this patient. Patient was initiated on diltiazem for rate control in the ED. [facility] Medical History Anemia Atherosclerotic heart disease of [place] coronary artery without angina pectoris COPD (chronic obstructive pulmonary disease) GERD (gastroesophageal reflux disease) History of left heart catheterization Hyperlipidemia Hypertension Irritable bowel Myoclonic disorder Paroxysmal atrial fibrillation with RVR Sigmoid diverticulitis Thyroid nodule Home Medications tramadol 1 tab PO BID PRN 04/19/19 [History Last Taken 11/15/19] albuterol sulfate 2 puff INHALATION Q4H PRN PRN 10/23/19 [History Last Taken 11/16/19] lisinopril 20 mg PO DAILY 01/08/21 [History Last Taken 07/13/21 08:00] budesonide-formoterol HFA 160 mcg-4.5 mcg/actuation aerosol inhaler 2 puff INHALATION BID 02/05/21 [History Last Taken Unknown] clonazepam 1 mg tablet 2 mg PO BID PRN 02/05/21 [History Last Taken 07/12/21 2 2:00] hydrochlorothiazide 25 mg tablet 25 mg PO DAILY 02/05/21 [History Last Taken 07/13/21 08:00] nitroglycerin 0.4 mg sublingual tablet 0.4 mg SUBLINGUAL Q5-15M PRN 02/05/21 [History Last Taken Unknown] apixaban [Eliquis] 5 mg PO BID #74 tab 07/11/21 [Rx Last Taken 07/12/21 22:00] clopidogrel 75 mg PO DAILY #30 tab 07/11/21 [Rx Last Taken 07/12/21 10:00] metoprolol succinate 100 mg PO DAILY #30 tab.er.24h 07/11/21 [Rx Last Taken 07/13/21 08:00] apixaban [Eliquis] 10 mg PO BID 07/13/21 [History Last Taken 07/12/21 22:00] Allergy/AdvReac Type Severity Reaction Status Date / Time levofloxacin [From Levaquin] Allergy Rash Verified 07/11/21 12:32 phenytoin [From Dilantin] Allergy Swelling Verified 07/11/21 12:32 sertraline AdvReac Intermediate anxiety Verified 07/11/21 12:32 Family History Mother Hypertension CVA (cerebral vascular accident) CAD (coronary artery disease) Father Colon cancer Leukemia Throat cancer Surgical History History of breast lump removal History of coronary artery stent placement History of lobectomy of thyroid History of thyroidectomy History of total abdominal hysterectomy Social History (Updated 07/13/21 @ 14:43 by Fawn Weiss) housing: house number of children: 1 Smoking Status: Heavy Smoker (>10/day) Tobacco: How many years used: 50 alcohol intake: never substance use type: does not use Vital Signs Vital Signs Vital Signs: 07/13/21 10:23 07/13/21 10:50 07/13/21 11:00 Temperature 98.3 F Temperature Source Oral Pulse Rate 155 H 120 H Pulse Rate [1 (Initial Baseline)] Pulse Rate [3] Pulse Rate [4] Respiratory Rate 17 16 Respiratory Rate [1 (Initial Baseline)] Respiratory Rate [3] Respiratory Rate [4] Respiratory Effort Blood Pressure 160/83 H 105/71 Blood Pressure [1 (Initial Baseline)] Blood Pressure [4] Blood Pressure Mean 108 82 Pulse Ox 97 93 Oxygen Delivery Method Room Air Room Air Room Air Oxygen Delivery Method [1 (Initial Baseline)] Oxygen Delivery Method [3] Oxygen Delivery Method [4] Oxygen Flow Rate (L/min) Oxygen Flow Rate (L/min) [1 (Initial Baseline)] Oxygen Flow Rate (L/min) [3] Oxygen Flow Rate (L/min) [4] 07/13/21 11:30 07/13/21 11:44 07/13/21 12:02 Temperature Temperature Source Pulse Rate 125 H Pulse Rate [1 (Initial Baseline)] 124 H Pulse Rate [3] 130 H Pulse Rate [4] 134 H Respiratory Rate 18 Respiratory Rate [1 (Initial Baseline)] 16 Respiratory Rate [3] 20 H Respiratory Rate [4] 19 H Respiratory Effort Normal Blood Pressure 108/88 H Blood Pressure [1 (Initial Baseline)] 146/96 H Blood Pressure [4] 122/86 H Blood Pressure Mean 94 Pulse Ox 94 Oxygen Delivery Method Room Air Oxygen Delivery Method [1 (Initial Baseline)] Nasal Cannula Oxygen Delivery Method [3] Nasal Cannula Oxygen Delivery Method [4] Nasal Cannula Oxygen Flow Rate (L/min) Oxygen Flow Rate (L/min) [1 (Initial Baseline)] 2 Oxygen Flow Rate (L/min) [3] 4 Oxygen Flow Rate (L/min) [4] 2 07/13/21 12:12 07/13/21 12:27 07/13/21 12:42 Temperature 97.2 F L Temperature Source Temporal Pulse Rate 123 H 122 H 113 H Pulse Rate [1 (Initial Baseline)] Pulse Rate [3] Pulse Rate [4] Respiratory Rate 16 20 H 20 H Respiratory Rate [1 (Initial Baseline)] Respiratory Rate [3] Respiratory Rate [4] Respiratory Effort Blood Pressure 120/83 H 120/77 110/80 Blood Pressure [1 (Initial Baseline)] Blood Pressure [4] Blood Pressure Mean 90 Pulse Ox 97 96 96 Oxygen Delivery Method Nasal Cannula Room Air Room Air Oxygen Delivery Method [1 (Initial Baseline)] Oxygen Delivery Method [3] Oxygen Delivery Method [4] Oxygen Flow Rate (L/min) 2 Oxygen Flow Rate (L/min) [1 (Initial Baseline)] Oxygen Flow Rate (L/min) [3] Oxygen Flow Rate (L/min) [4] Weight Weight: 149 lb 4.047 oz Body Mass Index (BMI) 24.0 Physical Exam Const alert and oriented x3 General Appearance: cooperative HEENT normocephalic, head/scalp atraumatic and hearing grossly normal bilaterally Eyes PERRL, EOMs intact bilaterally and conjunctivae normal Neck no lymphadenopathy, supple and no JVD Resp normal respiratory effort, no retractions, no use of accessory muscles and clear to auscultation bilaterally Cardio regular rate, regular rhythm, no murmurs and no JVD GI normal to inspection, nondistended, normoactive bowel sounds, soft to palpation and non-tender Extremity normal to inspection, full ROM and no clubbing, cyanosis or edema Skin no rashes or lesions noted, no wounds, skin turgor normal and no jaundice Neuro CN's II-XII intact bilaterally Psych affect normal Results Lab / Micro Data Result Diagrams: 07/13/21 10:32 07/13/21 10:32 Labs: Laboratory Results - last 24 hr 07/13/21 10:32: WBC 7.0, RBC 4.79, Hgb 14.8, Hct 45.7, MCV 95.4, MCH 30.9, MCHC 32.4, RDW Std Deviation 48.2 H, RDW Coeff of Claudia 13.6, Plt Count 280, MPV 10.3, Immature Gran % (Auto) 0.100, Neut % (Auto) 68.7, Lymph % (Auto) 19.5, [place] % (Auto) 8.5, Eos % (Auto) 2.3, Baso % (Auto) 0.9, Absolute Neuts (auto) 4.8, Absolute Lymphs (auto) 1.36, Nucleated RBC % 0 07/13/21 10:32: Sodium 143, Potassium 4.1, Chloride 109 H, Carbon Dioxide 25.0, Anion Gap 9, BUN 13, Creatinine 0.91, Estim Creat Clear Calc 54.62, Est GFR (MDRD) Af Amer 78, Est GFR (MDRD) Non-Af 65, BUN/Creatinine Ratio 14.2, Glucose 153 H, Calcium 8.9, Troponin I High Sens 22 07/13/21 10:32: Magnesium 2.2 Rhythm Strip Rhythm Strip: A-fib Rate: 159 Radiology Impression Chest X-Ray 07/13/21 11:10 IMPRESSION: Atelectatic changes or scarring in the lung bases. No new infiltrate is seen. Electronically Signed: Donta Herron MD at 11:23 EDT Tel , Service support , Assessment & Plan Assessment/Plan (1) Chest pain: (2) Atrial fibrillation with rapid ventricular response: (3) Paroxysmal atrial fibrillation with RVR: PLAN: Patient is a 70-year-old female who presents to the ED at [facility] on 07/13/2021 with a chief complaint of chest pain and heart palpitations. Patient will be admitted for management of paroxysmal atrial fibrillation with RVR. 1) PAF with RVR Rate currently 113. EKG demonstrated A. fib with RVR in the ED. Patient is already on Eliquis for anticoagulation and metoprolol 100 mg p.o. twice daily at home for rate control. Plan; admit to PCU for cardiac telemetry monitoring, cardiology consulted, continue diltiazem, continue metoprolol and Eliquis, continue to cycle high-sensitivity troponins, CBC and CMP in a.m. 2) COPD Continue albuterol and budesonide, O2 per protocol. 3) tobacco abuse Greater than 50-year history of smoking 2 packs of cigarettes per day. Cessation advised, nicotine patch ordered. DVT prophylaxis - Eliquis Patient seen by Jose Elaine PA-C, under the supervision of Dr. Castrejon. Documented by User: Dr. Yeimi Castrejon MD 07/13/21 15:37 HPI - General General Date of Admission: 07/13/21 [facility] Medical History Anemia Atherosclerotic heart disease of [place] coronary artery without angina pectoris COPD (chronic obstructive pulmonary disease) GERD (gastroesophageal reflux disease) History of left heart catheterization Hyperlipidemia Hypertension Irritable bowel Myoclonic disorder Paroxysmal atrial fibrillation with RVR Sigmoid diverticulitis Thyroid nodule Home Medications tramadol 1 tab PO BID PRN 04/19/19 [History Last Taken 11/15/19] albuterol sulfate 2 puff INHALATION Q4H PRN PRN 10/23/19 [History Last Taken 11/16/19] lisinopril 20 mg PO DAILY 01/08/21 [History Last Taken 07/13/21 08:00] budesonide-formoterol HFA 160 mcg-4.5 mcg/actuation aerosol inhaler 2 puff INHALATION BID 02/05/21 [History Last Taken Unknown] clonazepam 1 mg tablet 2 mg PO BID PRN 02/05/21 [History Last Taken 07/12/21 22:00] hydrochlorothiazide 25 mg tablet 25 mg PO DAILY 02/05/21 [History Last Taken 07/13/21 08:00] nitroglycerin 0.4 mg sublingual tablet 0.4 mg SUBLINGUAL Q5-15M PRN 02/05/21 [History Last Taken Unknown] apixaban [Eliquis] 5 mg PO BID #74 tab 07/11/21 [Rx Last Taken 07/12/21 22:00] clopidogrel 75 mg PO DAILY #30 tab 07/11/21 [Rx Last Taken 07/12/21 10:00] metoprolol succinate 100 mg PO DAILY #30 tab.er.24h 07/11/21 [Rx Last Taken 07/13/21 08:00] apixaban [Eliquis] 10 mg PO BID 07/13/21 [History Last Taken 07/12/21 22:00] Allergy/AdvReac Type Severity Reaction Status Date / Time levofloxacin [From Levaquin] Allergy Rash Verified 07/11/21 12:32 phenytoin [From Dilantin] Allergy Swelling Verified 07/11/21 12:32 sertraline AdvReac Intermediate anxiety Verified 07/11/21 12:32 Family History Mother Hypertension CVA (cerebral vascular accident) CAD (coronary artery disease) Father Colon cancer Leukemia Throat cancer Surgical History History of breast lump removal History of coronary artery stent placement History of lobectomy of thyroid History of thyroidectomy History of total abdominal hysterectomy Social History (Updated 07/13/21 @ 14:43 by Fawn Weiss) housing: house number of children: 1 Smoking Status: Heavy Smoker (>10/day) Tobacco: How many years used: 50 alcohol intake: never substance use type: does not use Results Lab / Micro Data Result Diagrams: 07/13/21 10:32 07/13/21 10:32 Charges/Coding Addendum Addendum: This patient was seen in conjunction with SMITHA Purcell. I have independently interviewed and examined the patient and reviewed pertinent historical, laboratory, and other data. Please refer to SMITHA Purcell's note for his patient's presentation, findings, and recommendations. I have reviewed and his note and concur with his documentation 70-year-old female with past medical history of paroxysmal A. fib who comes in with complaints of chest discomfort and found to be in A. fib with RVR. Patient was in the ED on 07/11 with the same presentation. Today in the ED, attempted cardioversion was done 3 times, patient remains in A. fib. 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 A. fib with RVR 2. Nicotine dependence 3. COPD, not in acute exacerbation Plan: Appreciate cardiology consult Continue on Cardizem drip Continue on Eliquis Visit Charges Inpatient E&M: 17090 Init Hosp L3
[2021-07-13 14:07] LABS: Troponin-I HS 26 pg/mL (3.0-54.0)
[2021-07-13 16:40] LABS: Troponin-I HS 24 pg/mL (3.0-54.0)
[2021-07-13] MEDS: Metoprolol(XL)Succ 50 MG Tablet PO (17:47)
[2021-07-13] MEDS: Albuterol 2.5 MG/3 ML VIAL.NEB. INHALATION (19:11)
[2021-07-13] MEDS: Budesonide Respules 0.5 MG/2 ML AMPUL.NEB. INHALATION (19:11)
[2021-07-13] MEDS: APIXABAN 5 MG TABLET PO (21:49)
[2021-07-13] MEDS: 0.9% Saline Lock 10 ML Syringe IV (22:08)
[2021-07-14 02:00] VITALS: BP 163/84; PULSE 64; RESP 20; TEMP 36.4; O2SAT 94
[2021-07-14 05:56] LABS: Absolute Lymphocyte Count 1.25 X10^3/uL (0.83-4.51); Absolute Neutrophil Count 4.2 X10^3/uL (2.0-7.7); Basophil# 0.04 X10^3/uL; Basophil% 0.6 % (0-1); Eosinophils% 3.2 % (0-5); Hematocrit 40.9 % (37-47); Hemoglobin 13.1 g/dL (12.0-15.0); Lymphocyte # 1.25 X10^3/ul (0.83-4.51); Lymphocyte % 20.1 % (19-41); Mean Corpuscular Volume 96.9 fL (81-99); Mean Platelet Vol. 10.5 fl (6.2-12.0); Monocyte# 0.54 X10^3/uL; Monocyte% 8.7 % (0-10); NRBC Flagged by Analyzer 0 % (0-5); Neutrophil # 4.18 X10^3/uL (2.7-7.7); Neutrophil % 67.2 % (47-70); Platelet Count 236 K/mm3 (150-450); RBC Distribution Width CV 13.7 % (11.6-14.6); RBC Distribution Width SD 48.6 fl (35.1-43.9); Red Blood Count 4.22 M/mm3 (4.2-5.4); White Blood Count 6.2 K/mm3 (4.4-11.0)
[2021-07-14 06:00] VITALS: BP 171/86; PULSE 65; RESP 18; TEMP 36.7; O2SAT 98
[2021-07-14 06:24] LABS: ALB/GLOB Ratio 0.9 RATIO (0.9-2.4); AST(SGOT) 17 U/L (15-37); Alanine Aminotransfer ALT/SGPT 15 U/L (13-56); Albumin, Serum 3.3 g/dL (3.2-5.0); Alkaline Phosphatase 78 U/L (45-117); Anion Gap 6 (5-15); BUN 15 mg/dL (7-18); Calcium,Total 8.7 mg/dL (8.5-10.1); Chloride 109 mmol/L (98-107); Creatinine, Serum 0.88 mg/dL (0.55-1.02); EST Glomerular Filtration Rate 67 mL/min (>60); Est Glom Filt Rate - Afr Amer 81 mL/min (>60); Estimated Creatinine Clearance 56.48 ml/min; Globulin 3.6 g/dL (2.2-4.2); Glucose 116 mg/dL (74-106); Potassium 4.2 mmol/L (3.5-5.1); Protein, Total 6.9 g/dL (6.4-8.2); Sodium Level 140 mmol/L (136-145)
[2021-07-14 06:52] VITALS: PULSE 64
[2021-07-14 06:58] VITALS: PULSE 61; RESP 16; O2SAT 95
[2021-07-14] MEDS: Budesonide Respules 0.5 MG/2 ML AMPUL.NEB. INHALATION (06:58)
[2021-07-14] MEDS: Albuterol 2.5 MG/3 ML VIAL.NEB. INHALATION (06:58)
[2021-07-14 09:32] VITALS: BP 152/78; PULSE 65; RESP 14; TEMP 36.6; O2SAT 95
[2021-07-14] MEDS: APIXABAN 5 MG TABLET PO (09:36)
[2021-07-14 09:37] VITALS: BP 152/78; PULSE 65
[2021-07-14] MEDS: Lisinopril 20 MG Tablet PO (09:37)
[2021-07-14] MEDS: Clopidogrel Bisulfate 75 MG Tablet PO (09:37)
[2021-07-14] MEDS: Metoprolol(XL)Succ 50 MG Tablet PO (09:37)
[2021-07-14] MEDS: hydroCHLOROthiazide 25 MG Tablet PO (09:37)
--- NOTE | 2021-07-14 11:10 | PCM.DC ---
Discharge Instructions Diet Discharge Diet: No restrictions Activity Discharge Activity: Return to Normal Activity Weight Bearing Status: Weight bearing as tolerated Dressing / Incision Call your doctor if you observe: Fever of 101 or Higher, Numbness or Tingling, Shortness of breath, Dizziness, Chest pain, Increased palpitations (irregular heartbeat) and Calf discomfort Follow Up Care Please Follow Up With: Primary care provider When: Within the next two weeks. Test Results: Test results from this visit will be discussed in further detail at your follow-up appointment, if applicable. Discharge Plan Admission Admit Date/Time: 07/13/21 12:18 Primary Reason for Your Visit: Atrial Fibrillation Attending Provider: Yeimi Castrejon Primary Care Provider: Adarsh Urbina Consulting Providers: Trev Steward Discharge Orders/Prescriptions Prescriptions: New metoprolol succinate 50 mg Tablet Extended Release 24 Hr 50 mg PO BID Qty: 60 RF: 0 Eliquis 5 mg tablet 5 mg PO BID Qty: 60 RF: 0 Continued hydrochlorothiazide 25 mg tablet 25 mg PO DAILY RF: 0 nitroglycerin 0.4 mg tablet, sublingual 0.4 mg sublingual Q5-15M PRN (Reason: Chest Pain) RF: 0 budesonide-formoterol 160-4.5 mcg/actuation HFA aerosol inhaler 2 puff inhalation BID RF: 0 tramadol 50 MG tablet 1 tab PO BID PRN (Reason: Pain) RF: 0 clonazepam 1 mg tablet 2 mg PO BID PRN (Reason: anxiety) RF: 0 albuterol sulfate 18 GM HFA aerosol inhaler 2 puff inhalation Q4H PRN PRN (Reason: Sob &/Or Wheezing) RF: 0 lisinopril 20 mg tablet 20 mg PO DAILY RF: 0 clopidogrel 75 MG tablet 75 mg PO DAILY Qty: 30 RF: 0 Discontinued Eliquis 5 MG tablet 5 mg PO BID Qty: 74 RF: 0 metoprolol succinate 100 MG tablet extended release 24 hr 100 mg PO DAILY Qty: 30 RF: 0 Eliquis 5 mg Tablet 10 mg PO BID RF: 0 Referrals / Follow Up: Adarsh Urbina MD [Primary Care Provider] - Within 2 Weeks Talon Pineda MD [NON-STAFF] - Within 2 Weeks Disposition Disposition (needs filled in before D/C Order can be placed): Home, Self Care
--- NOTE | 2021-07-14 11:43 | NURSING ---
[facility] savings card provided to patient.
--- NOTE | 2021-07-14 11:55 | PN.CARD_ITS ---
Subjective Subjective Patient seen and evaluated today at bedside discussed with the nursing staff, daughter at bedside at time of evaluation Feeling much better no further episode of palpitation And cardiac telemetry revealed normal sinus, converted from A. fib Objective Data Vital Signs: Vital Signs Temp Pulse Resp BP Pulse Ox 97.8 F 65 14 152/78 H 95 07/14/21 09:32 07/14/21 09:37 07/14/21 09:32 07/14/21 09:37 07/14/21 09:32 Oxygen Flow Rate (L/min) [4] 2 Oxygen Flow Rate (L/min) [3] 4 Oxygen Flow Rate (L/min) [1 ( 2 Initial Baseline)] Oxygen Flow Rate (L/min) 2 Oxygen Delivery Method [4] Nasal Cannula Oxygen Delivery Method [3] Nasal Cannula Oxygen Delivery Method [1 ( Nasal Cannula Initial Baseline)] Oxygen Delivery Method Room Air Weight: 145 lb 4.554 oz Body Mass Index (BMI) 23.4 Intake & Output: Intake and Output for Last 24 Hours 07/12/21 07/13/21 07/14/21 23:59 23:59 23:59 Intake Total 456.08 / 900.08 444 / 444 Balance 456.08 / 900.08 444 / 444 Lab / Micro Data Result Diagrams: 07/14/21 05:10 07/14/21 05:10 Labs: Laboratory Results - last 24 hr 07/13/21 10:32: Magnesium 2.2 07/13/21 13:30: Troponin I High Sens 26 07/13/21 16:04: Troponin I High Sens 24 07/14/21 05:10: WBC 6.2, RBC 4.22, Hgb 13.1, Hct 40.9, MCV 96.9, MCH 31.0, MCHC 32.0, RDW Std Deviation 48.6 H, RDW Coeff of Claudia 13.7, Plt Count 236, MPV 10.5, Immature Gran % (Auto) 0.200, Neut % (Auto) 67.2, Lymph % (Auto) 20.1, [place] % (Auto) 8.7, Eos % (Auto) 3.2, Baso % (Auto) 0.6, Absolute Neuts (auto) 4.2, Absolute Lymphs (auto) 1.25, Nucleated RBC % 0 07/14/21 05:10: Sodium 140, Potassium 4.2, Chloride 109 H, Carbon Dioxide 25.0, Anion Gap 6, BUN 15, Creatinine 0.88, Estim Creat Clear Calc 56.48, Est GFR (MDRD) Af Amer 81, Est GFR (MDRD) Non-Af 67, BUN/Creatinine Ratio 17.0, Glucose 116 H, Calcium 8.7, Total Bilirubin 0.40, AST 17, ALT 15, Alkaline Phosphatase 78, Total Protein 6.9, Albumin 3.3, Globulin 3.6, Albumin/Globulin Ratio 0.9 Rhythm Strip Rhythm Strip: A-fib Rate: 159 Cardiology Labs/Tests 07/13/21 10:32: Magnesium 2.2 07/14/21 05:10: WBC 6.2, RBC 4.22, Hgb 13.1, Hct 40.9, MCV 96.9, MCH 31.0, MCHC 32.0, Plt Count 236, MPV 10.5, Immature Gran % (Auto) 0.200, Neut % (Auto) 67.2, Lymph % (Auto) 20.1, [place] % (Auto) 8.7, Eos % (Auto) 3.2, Baso % (Auto) 0.6, Absolute Neuts (auto) 4.2, Nucleated RBC % 0 07/14/21 05:10: Sodium 140, Potassium 4.2, Chloride 109 H, Carbon Dioxide 25.0, Anion Gap 6, BUN 15, Creatinine 0.88, Est GFR (MDRD) Af Amer 81, Est GFR (MDRD) Non-Af 67, BUN/Creatinine Ratio 17.0, Glucose 116 H, Calcium 8.7, Total Bilirubin 0.40 Rhythm: Normal sinus rhythm : Physical Exam Narrative Patient seen and examined at bedside today She is comfortable alert orientated 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 Assessment & Plan Assessment/Plan (1) COPD (chronic obstructive pulmonary disease): (2) History of coronary artery disease: (3) History of coronary artery stent placement: (4) Nonrheumatic tricuspid (valve) insufficiency: (5) Left atrial enlargement: (6) Secondary pulmonary hypertension: (7) Hypertension: (8) Hyperlipidemia: (9) Tobacco abuse: (10) Myoclonic disorder: (11) Atrial fibrillation with rapid ventricular response: PLAN: Patient presented with palpitation had the A. fib with RVR converted to normal sinus rhythm Patient has multiple medical comorbidities with tobacco abuse, hypertension, hyperlipidemia CAD with a history of myocardial infarction and PCI and stent of RCA [address] Tariq Levy. She has been seeing and following at [facility] and according to the daughter and the patient they would like to establish cardiology service here at [facility] due to the location and being closer to the hospital in and as the patient has a recurrent episode of A. fib. Cardiac recommendation and plan; #1. Continue current treatment #2. Patient is stable from cardiac standpoint and can be discharged home with the plan of follow-up with the cardiology team
--- NOTE | 2021-07-14 14:31 | DS.PCM_ITS ---
Documented by User: Jose OBNE 07/14/21 14:35 Providers Date of Admission: 07/13/21 Primary Care Physician: Dr. Adarsh Urbina MD Consultations 07/13/21 13:17 Consult: Cardiology Routine Consulting Provider: Trev Steward Reason for Consult: Atrial Fibrillation EMERGENT Consult: No MD Notified: Yes Date Notified: 07/13/21 Time Notified: 13:18 Method of Notification: Verbal Reason For Visit: A. FIB WITH RVR Diagnosis Discharge Diagnosis (1) COPD (chronic obstructive pulmonary disease): Status: Chronic Code(s): J44.9 - Chronic obstructive pulmonary disease, unspecified (2) History of coronary artery disease: Status: Acute Code(s): Z86.79 - Personal history of other diseases of the circulatory system (3) History of coronary artery stent placement: Status: Chronic Code(s): Z95.5 - Presence of coronary angioplasty implant and graft (4) Nonrheumatic tricuspid (valve) insufficiency: Status: Acute Code(s): I36.1 - Nonrheumatic tricuspid (valve) insufficiency (5) Left atrial enlargement: Status: Acute Code(s): I51.7 - Cardiomegaly (6) Secondary pulmonary hypertension: Status: Acute (7) Hypertension: Status: Chronic Code(s): I10 - Essential (primary) hypertension (8) Hyperlipidemia: Status: Chronic Code(s): E78.5 - Hyperlipidemia, unspecified (9) Tobacco abuse: Status: Chronic Code(s): Z72.0 - Tobacco use (10) Myoclonic disorder: Status: Acute Code(s): G25.3 - Myoclonus (11) Atrial fibrillation with rapid ventricular response: Status: Acute Code(s): I48.91 - Unspecified atrial fibrillation Medications at Discharge Home Medications tramadol 1 tab PO BID PRN 04/19/19 albuterol sulfate 2 puff INHALATION Q4H PRN PRN 10/23/19 lisinopril 20 mg PO DAILY 01/08/21 budesonide-formoterol HFA 160 mcg-4.5 mcg/actuation aerosol inhaler 2 puff INHALATION BID 02/05/21 clonazepam 1 mg tablet 2 mg PO BID PRN 02/05/21 hydrochlorothiazide 25 mg tablet 25 mg PO DAILY 02/05/21 nitroglycerin 0.4 mg sublingual tablet 0.4 mg SUBLINGUAL Q5-15M PRN 02/05/21 clopidogrel 75 mg PO DAILY #30 tab 07/11/21 apixaban [Eliquis] 5 mg PO BID #60 tab 07/14/21 metoprolol succinate 50 mg PO BID #60 tab 07/14/21 Hospital Course Summary of Care Provided Minutes Spent on Discharge: 35 Hospital Course: Disposition: Patient to discharge home. 1) PAF with RVR Patient was initiated on diltiazem in the ED. diltiazem discontinued after patient converted back to normal sinus rhythm and metoprolol was adjusted to 50 mg p.o. twice daily. Patient was discharged on metoprolol 50 mg p.o. twice daily and Eliquis dose was adjusted to 5 mg p.o. twice daily from 10 mg twice daily. Patient is to follow-up with cardiology and primary care provider within the next 2 weeks. 2) COPD Continue albuterol and budesonide, O2 per protocol. 3) tobacco abuse Cessation encouraged. Patient seen by Jose Elaine PA-C, under the supervision of Dr. Castrejon. Physical Exam Narrative Patient is a 70-year-old female comfortably resting in bed, alert and orient x3. Patient reports that chest pain and heart palpitations have resolved, denies development of any new symptoms overnight. Patient no longer appears in acute distress and reports being ready to return home. Const alert, oriented x3 and no apparent distress HEENT normocephalic, head/scalp atraumatic and hearing grossly normal bilaterally Eyes PERRL, EOMs intact bilaterally and conjunctivae normal Neck no lymphadenopathy, supple and no JVD Resp normal respiratory effort, no retractions, no use of accessory muscles and clear to auscultation bilaterally Cardio regular rate, regular rhythm, no murmurs and no JVD GI normal to inspection, nondistended, normoactive bowel sounds, soft to palpation and non-tender Extremity normal to inspection, full ROM and no clubbing, cyanosis or edema Skin no rashes or lesions noted, no wounds and skin turgor normal Neuro CN's II-XII intact bilaterally Psych affect normal Weight / BMI Weight Weight: 145 lb 4.554 oz Body Mass Index (BMI) 23.4 ABG / Lab / Microbiology Data Result Diagrams: 07/14/21 05:10 07/14/21 05:10 Laboratory: Laboratory Results - last 24 hr 07/13/21 16:04: Troponin I High Sens 24 07/14/21 05:10: WBC 6.2, RBC 4.22, Hgb 13.1, Hct 40.9, MCV 96.9, MCH 31.0, MCHC 32.0, RDW Std Deviation 48.6 H, RDW Coeff of Claudia 13.7, Plt Count 236, MPV 10.5, Immature Gran % (Auto) 0.200, Neut % (Auto) 67.2, Lymph % (Auto) 20.1, [place] % (Auto) 8.7, Eos % (Auto) 3.2, Baso % (Auto) 0.6, Absolute Neuts (auto) 4.2, Absolute Lymphs (auto) 1.25, Nucleated RBC % 0 07/14/21 05:10: Sodium 140, Potassium 4.2, Chloride 109 H, Carbon Dioxide 25.0, Anion Gap 6, BUN 15, Creatinine 0.88, Estim Creat Clear Calc 56.48, Est GFR (MDRD) Af Amer 81, Est GFR (MDRD) Non-Af 67, BUN/Creatinine Ratio 17.0, Glucose 116 H, Calcium 8.7, Total Bilirubin 0.40, AST 17, ALT 15, Alkaline Phosphatase 78, Total Protein 6.9, Albumin 3.3, Globulin 3.6, Albumin/Globulin Ratio 0.9 D/C Instructions Discharge Diet: No restrictions Weight Bearing Status: Weight bearing as tolerated Call your doctor if you observe: Fever of 101 or Higher, Numbness or Tingling, Shortness of breath, Dizziness, Chest pain, Increased palpitations (irregular heartbeat) and Calf discomfort Please Follow Up With: Primary care provider When: Within the next two weeks. Meaningful Use Info Meaningful Use Diagnoses (Choose all that apply): None applicable Discharge Plan Admission Admit Date/Time: 07/13/21 12:18 Primary Reason for Your Visit: Atrial Fibrillation Attending Provider: Yeimi Castrejon Primary Care Provider: Adarsh Urbina Consulting Providers: Trev Steward Discharge Orders/Prescriptions Prescriptions: New metoprolol succinate 50 mg Tablet Extended Release 24 Hr 50 mg PO BID Qty: 60 RF: 0 Eliquis 5 mg tablet 5 mg PO BID Qty: 60 RF: 0 Continued hydrochlorothiazide 25 mg tablet 25 mg PO DAILY RF: 0 nitroglycerin 0.4 mg tablet, sublingual 0.4 mg sublingual Q5-15M PRN (Reason: Chest Pain) RF: 0 budesonide-formoterol 160-4.5 mcg/actuation HFA aerosol inhaler 2 puff inhalation BID RF: 0 tramadol 50 MG tablet 1 tab PO BID PRN (Reason: Pain) RF: 0 clonazepam 1 mg tablet 2 mg PO BID PRN (Reason: anxiety) RF: 0 albuterol sulfate 18 GM HFA aerosol inhaler 2 puff inhalation Q4H PRN PRN (Reason: Sob &/Or Wheezing) RF: 0 lisinopril 20 mg tablet 20 mg PO DAILY RF: 0 clopidogrel 75 MG tablet 75 mg PO DAILY Qty: 30 RF: 0 Discontinued Eliquis 5 MG tablet 5 mg PO BID Qty: 74 RF: 0 metoprolol succinate 100 MG tablet extended release 24 hr 100 mg PO DAILY Qty: 30 RF: 0 Eliquis 5 mg Tablet 10 mg PO BID RF: 0 Referrals / Follow Up: Adarsh Urbina MD [Primary Care Provider] - Within 2 Weeks Talon Pineda MD [NON-STAFF] - Within 2 Weeks Disposition Disposition (needs filled in before D/C Order can be placed): Home, Self Care Documented by User: Dr. Yeimi Castrejon MD 07/14/21 15:33 Providers Date of Admission: 07/13/21 Reason For Visit: A. FIB WITH RVR Medications at Discharge Home Medications tramadol 1 tab PO BID PRN 04/19/19 albuterol sulfate 2 puff INHALATION Q4H PRN PRN 10/23/19 lisinopril 20 mg PO DAILY 01/08/21 budesonide-formoterol HFA 160 mcg-4.5 mcg/actuation aerosol inhaler 2 puff INHALATION BID 02/05/21 clonazepam 1 mg tablet 2 mg PO BID PRN 02/05/21 hydrochlorothiazide 25 mg tablet 25 mg PO DAILY 02/05/21 nitroglycerin 0.4 mg sublingual tablet 0.4 mg SUBLINGUAL Q5-15M PRN 02/05/21 clopidogrel 75 mg PO DAILY #30 tab 07/11/21 apixaban [Eliquis] 5 mg PO BID #60 tab 07/14/21 metoprolol succinate 50 mg PO BID #60 tab 07/14/21 ABG / Lab / Microbiology Data Result Diagrams: 07/14/21 05:10 07/14/21 05:10 Discharge Plan Admission Admit Date/Time: 07/13/21 12:18 Primary Reason for Your Visit: Atrial Fibrillation Attending Provider: Yeimi Castrejon Primary Care Provider: Adarsh Urbina Consulting Providers: Trev Steward Discharge Orders/Prescriptions Prescriptions: New metoprolol succinate 50 mg Tablet Extended Release 24 Hr 50 mg PO BID Qty: 60 RF: 0 Eliquis 5 mg tablet 5 mg PO BID Qty: 60 RF: 0 Continued hydrochlorothiazide 25 mg tablet 25 mg PO DAILY RF: 0 nitroglycerin 0.4 mg tablet, sublingual 0.4 mg sublingual Q5-15M PRN (Reason: Chest Pain) RF: 0 budesonide-formoterol 160-4.5 mcg/actuation HFA aerosol inhaler 2 puff inhalation BID RF: 0 tramadol 50 MG tablet 1 tab PO BID PRN (Reason: Pain) RF: 0 clonazepam 1 mg tablet 2 mg PO BID PRN (Reason: anxiety) RF: 0 albuterol sulfate 18 GM HFA aerosol inhaler 2 puff inhalation Q4H PRN PRN (Reason: Sob &/Or Wheezing) RF: 0 lisinopril 20 mg tablet 20 mg PO DAILY RF: 0 clopidogrel 75 MG tablet 75 mg PO DAILY Qty: 30 RF: 0 Discontinued Eliquis 5 MG tablet 5 mg PO BID Qty: 74 RF: 0 metoprolol succinate 100 MG tablet extended release 24 hr 100 mg PO DAILY Qty: 30 RF: 0 Eliquis 5 mg Tablet 10 mg PO BID RF: 0 Referrals / Follow Up: Adarsh Urbina MD [Primary Care Provider] - Within 2 Weeks Talon Pineda MD [NON-STAFF] - Within 2 Weeks Disposition Disposition (needs filled in before D/C Order can be placed): Home, Self Care Charges/Coding Addendum Addendum: This patient was seen in conjunction with SMITHA Purcell. I have independently interviewed and examined the patient and reviewed pertinent historical, laboratory, and other data. Please refer to SMITHA Purcell's note for his patient's presentation, findings, and recommendations. I have reviewed and his note and concur with his documentation 70-year-old female with past medical history of paroxysmal A. fib who comes in with complaints of chest discomfort and found to be in A. fib with RVR. Patient was in the ED on 07/11 with the same presentation. Attempted cardioversion was done 3 times but patient remains in A. fib. Cardiology was consulted. Patient was maintained on IV Cardizem On the floor, patient converted to normal sinus rhythm. She was discharged on metoprolol and Eliquis. She will follow up with her primary cardiothoracic surgeon for referral for ablation in the outpatient. Physical Exam: Gen:Comfortable, not pale, not jaundiced CVS:HS I +II, regular, no murmurs RESP: Diminished at lung bases GI: BS present and normal, soft, nontender, no palpable organs EXT:No edema Visit Charges Inpatient E&M: 96288 Disch Hosp
--- NOTE | 2021-07-15 15:25 | CASEMGMT ---
MARIA DEL CARMEN MARIE Discharge Follow-up Phone Call: JEISON: Himanshu Strata: 3 Call Date: 07/15/21 Discharge Date: 07/14/21 Time of Call: 1525 Duration: 1 min Admitting Diagnosis: A fib with RVR MARIA DEL CARMEN MARIE attempted to complete follow-up phone call after recent hospitalization. No answer, unable to leave message. Will attempt again at later time.
== END 2021-07-14 13:03 | disposition home or self-care (01) | DRG 310 ==
LOC: ED 12:25 → PCU 12:35
PROVIDERS: Admitting Provider Internal Medicine; Emergency Provider Emergency Medicine; PCP Family Medicine; Visit Provider Internal Medicine
DX: I48.0 Paroxysmal atrial fibrillation (principal); I36.1 Nonrheumatic tricuspid (valve) insufficiency; I25.10 Atherosclerotic heart disease of native coronary artery without angina pectoris; I10 Essential (primary) hypertension; I25.2 Old myocardial infarction; F41.9 Anxiety disorder, unspecified; G25.3 Myoclonus; D64.9 Anemia, unspecified; I27.29 Other secondary pulmonary hypertension; E78.5 Hyperlipidemia, unspecified; J44.9 Chronic obstructive pulmonary disease, unspecified; E04.1 Nontoxic single thyroid nodule; K21.9 Gastro-esophageal reflux disease without esophagitis; K58.9 Irritable bowel syndrome, unspecified; Z87.19 Personal history of other diseases of the digestive system; Z95.5 Presence of coronary angioplasty implant and graft; Z79.01 Long term (current) use of anticoagulants; Z79.02 Long term (current) use of antithrombotics/antiplatelets; Z79.899 Other long term (current) drug therapy; F17.200 Nicotine dependence, unspecified, uncomplicated
CPT/HCPCS: 36415; 71045; 80048; 80053; 83735; 84484; 85025; 92960; 93005; 94640; 97802; 99251; 99285; 99406; J7030; J7050; A4216; G0463

== ENCOUNTER 2021-12-18 11:01 | Observation (INO) | payer MEDICARE, SELFPAY ==
[2021-12-18] VITALS (19 sets, daily range): BP systolic 89–130; BP diastolic 54–91; PULSE 64–132; RESP 14–24; TEMP 36.6–37; O2SAT 90–97; BMI 21.3; BMI 23.9
--- NOTE | 2021-12-18 11:14 | EKG12_ITS ---
Test Reason : PALPS/DIZZY Blood Pressure : / mmHG Vent. Rate : 155 BPM Atrial Rate : 153 BPM P-R Int : 000 ms QRS Dur : 076 ms QT Int : 306 ms P-R-T Axes : 000 034 084 degrees QTc Int : 491 ms Atrial fibrillation Low voltage QRS Nonspecific ST abnormality Abnormal ECG Confirmed by MIGUEL GRIMALDO, APRIL ([id number]), editorial manager RAFAEL MCNAIR ([id number]) on 12/25/2021 10:24:12 AM Referred By: VARUN Confirmed By:APRIL RIVERA MD
--- NOTE | 2021-12-18 11:17 | EDS_ITS ---
HPI History of Present Illness Chief Complaint: Palpitations Narrative Narrative: Patient with past medical history of atrial fibrillation, on Eliquis, required cardioversion attempts approximately 5 months ago, presents with lightheadedness and heart palpitations like her previous episodes of atrial fibrillation. She presents with her daughter because at 730 this morning, approximately 4 hours ago, she began feeling lightheaded and while she was at work, she experienced palpitations and was unable to work. She thinks that she is in atrial fibrillation again. They state that she has not missed a dose of her Eliquis, and approximately 5 months ago they attempted to chemically ca rdiovert her but was unsuccessful. Additionally, electrocardioversion was attempted 3 times, but was unsuccessful. She followed up with the [facility], who wanted to perform ablation, but she cannot get a follow-up appointment until April. Her symptoms began this morning. She has not eaten anything because she did not feel like it. She denies any weight gain. No swelling of her legs. No other symptoms. She feels as if she is in atrial fibrillation again. [facility] Medical History Anemia Atherosclerotic heart disease of [place] coronary artery without angina pectoris Atrial fibrillation with RVR COPD (chronic obstructive pulmonary disease) COPD (chronic obstructive pulmonary disease) Essential hypertension GERD (gastroesophageal reflux disease) Hyperlipidemia Irritable bowel Left atrial enlargement Myoclonic disorder Paroxysmal atrial fibrillation with RVR Secondary pulmonary hypertension Sigmoid diverticulitis Thyroid nodule Home Medications tramadol 1 tab PO BID PRN 04/19/19 [History Last Taken 12/15/21] lisinopril 20 mg PO DAILY 01/08/21 [History Last Taken 12/18/21] budesonide-formoterol HFA 160 mcg-4.5 mcg/actuation aerosol inhaler 2 puff INHALATION BID 02/05/21 [History Last Taken 12/14/21] albuterol sulfate 90 mcg/actuation aerosol inhaler 2 puff INHALATION Q4H PRN PRN #8.5 g 08/06/21 [Rx Last Taken 12/16/21] hydrochlorothiazide 25 mg tablet 25 mg PO DAILY #90 tab 08/06/21 [Rx Last Taken 12/18/21] apixaban 5 mg tablet 5 mg PO BID #60 tab 08/14/21 [Rx Last Taken 12/17/21] dronedarone 400 mg tablet 400 mg PO BID #60 tab 08/14/21 [Rx Last Taken Unknown] clonazepam 2 mg PO BID PRN 12/18/21 [History Last Taken 12/16/21] metoprolol succinate 100 mg PO DAILY 12/18/21 [History Last Taken 12/18/21] Allergy/AdvReac Type Severity Reaction Status Date / Time levofloxacin [From Levaquin] Allergy Rash Verified 12/18/21 11:04 phenytoin [From Dilantin] Allergy Swelling Verified 12/18/21 11:04 sertraline AdvReac Intermediate anxiety Verified 12/18/21 11:04 Family History Mother Hypertension CVA (cerebral vascular accident) CAD (coronary artery disease) Father Colon cancer Leukemia Throat cancer Surgical History History of breast lump removal History of coronary artery stent placement (05/08/18) History of left heart catheterization (05/08/15) History of lobectomy of thyroid History of thyroidectomy History of total abdominal hysterectomy Social History housing: house number of children: 1 Smoking Status: Heavy Smoker (>10/day) Tobacco: How many years used: 50 alcohol intake: never substance use type: does not use ROS ROS ED ROS Narrative Constitutional: No fever, no chills. HEENT: No sore throat. No neck pain. No loss of vision. No rhinorrhea. Cardiovascular: Intermittent chest pain. Positive palpitations. No pedal edema. Respiratory: No cough, no shortness of breath. Abdominal: No abdominal pain. Minimal nausea. No vomiting. Genitourinary: No dysuria. No hematuria. Musculoskeletal: No myalgias. No arthralgias. Neurologic: No headaches. No dizziness. Positive lightheadedness. Skin: No rash. No change in color. Psychiatric: No depression. No anxiety. EXAM Physical Exam Narrative Exam Narrative: Afebrile. Vital signs noted. HEENT: Normocephalic. Atraumatic. PERRL, EOMI. Neck soft and supple. No point tenderness or step off. Cardiovascular: Irregularly irregular tachycardia, no murmurs, rubs, or gallops appreciated. Respiratory: No tachypnea. Lungs clear to auscultation bilaterally. Gastrointestinal: Abdomen soft, nontender, with normoactive bowel sounds. No rebound or guarding. Neurological: Awake. Alert. Nonfocal, nonlateralizing. Skin: No rash. Normal color. No pallor. Musculoskeletal: No pedal edema. Full range of motion extremities. Const Vital Signs: 12/18/21 11:01 12/18/21 11:45 12/18/21 12:35 Temperature 97.8 F Temperature Source Temporal Pulse Rate 88 116 H 119 H Respiratory Rate 14 17 24 H Respiratory Effort Normal Non-Labored Blood Pressure 104/83 H 89/54 L 130/77 H Blood Pressure Mean 90 65 94 Blood Pressure Source Blood Pressure Position Blood Pressure Location Pulse Ox 97 95 95 Oxygen Delivery Method Room Air Room Air Room Air 12/18/21 14:08 12/18/21 14:29 12/18/21 15:05 Temperature 98.2 F Temperature Source Oral Pulse Rate 106 H 109 H 132 H Respiratory Rate 19 H 16 22 H Respiratory Effort Blood Pressure 111/85 H 111/85 H 113/74 Blood Pressure Mean 93 93 87 Blood Pressure Source Monitor Blood Pressure Position Sitting Blood Pressure Location Left Arm Pulse Ox 96 93 95 Oxygen Delivery Method Room Air Room Air 12/18/21 15:24 Temperature 98.6 F Temperature Source Temporal Pulse Rate 113 H Respiratory Rate 23 H Respiratory Effort Blood Pressure 112/79 Blood Pressure Mean 90 Blood Pressure Source Monitor Blood Pressure Position Sitting Blood Pressure Location Left Arm Pulse Ox 94 Oxygen Delivery Method Room Air MDM MDM MDM Narrative Medical decision making narrative: Although her pulse was recorded at 88 in triage, EKG was obtained which demonstrates atrial fibrillation at [address] changes. Comprehensive work-up was pursued. I reviewed her prior records. Her daughter states that 1 medication usually works. The last time she was here was in June 2021 where she was administered Cardizem, and she was admitted after electrocardioversion attempts had failed. She will be administered 20 mg of Cardizem here in the emergency department as her systolic blood pressure is currently 104. Laboratory work is grossly unremarkable with normal WBC count, normal hemoglobin of 13.3, electrolyte panel is grossly unremarkable except for creatinine slightly elevated at 1.25. High-sensitivity troponin normal at 24. Chest x-ray interpreted by myself shows no evidence of an infiltrate or vascular congestion. Patient had 2 boluses of Cardizem intravenously. She also received Lopressor 5 mg. There was confusion on whether or not she was taking her metoprolol although initially she said that she had been taking it, patient's daughter and patient said to the RN that she was unsure if she was taking the metoprolol. Initially, I discussed patient with Dr. Dominguez for admission. Patient has had refractory paroxysmal atrial fibrillation leonardo patient with Dr. Mendoza with cardiology who suggested an amiodarone bolus of 150 mg intravenously, then 20 to 30 minutes later attempt cardioversion because initially, patient told me that she did not miss a dose of her Eliquis when I asked her. However, when I discussed cardioversion with her, she states that she has been out of her Eliquis for the last 2 days. She was still given the amiodarone bolus, and upon repeat examination 15 minutes afterwards, she is still having irregularly irregular tachycardia as high as the 120s. I discussed the patient with Dr. Dominguez again who will admit her to the PCU. I will hold off on any antiarrhythmics until after her discussion with cardiology. Patient will be admitted in stable condition. Lab Data Attestation: I reviewed the patient's lab results. Labs: Laboratory Results - last 24 hr 12/18/21 12/18/21 12/18/21 11:25 11:25 14:09 WBC 8.9 RBC 4.24 Hgb 13.3 Hct 40.8 MCV 96.2 MCH 31.4 MCHC 32.6 RDW Std Deviation 47.0 H RDW Coeff of Claudia 13.2 Plt Count 300 MPV 10.4 Immature Gran % (Auto) 0.300 Neut % (Auto) 73.9 H Lymph % (Auto) 16.8 L Scott % (Auto) 6.8 Eos % (Auto) 1.6 Baso % (Auto) 0.6 Absolute Neuts (auto) 6.6 Absolute Lymphs (auto) 1.50 Nucleated RBC % 0 Sodium 137 Potassium 4.2 Chloride 106 Carbon Dioxide 27.0 Anion Gap 4 L BUN 18 Creatinine 1.25 H Estim Creat Clear Calc 39.20 Est GFR (MDRD) Af Amer 54 L Est GFR (MDRD) Non-Af 45 L BUN/Creatinine Ratio 14.4 Glucose 128 H Calcium 9.8 Troponin I High Sens 24 31 Radiography Diagnostic Testing: Clinical Impression(s) from Imaging Studies Chest X-Ray 12/18/21 11:37 IMPRESSION: Hyperinflation. Increased markings at the lung bases slightly more prominent on the right side. Early infiltrate should be ruled out. Electronically Signed: Casa Livingston MD at 12:07 EDT , Discharge Plan Dx/Rx/DC Orders Clinical Impression: Paroxysmal atrial fibrillation, Palpitations, Lightheadedness, Tobacco abuse Disposition Disposition: Acute Care Hospital [facility]
[2021-12-18] MEDS: dilTIAZem 25 MG/5 ML Vial 20 MG IV BOLUS ×2 (11:22→12:50)
[2021-12-18] MEDS: 0.9% Normal Saline 1,000 ML 150 ML IV (11:25)
[2021-12-18 11:33] LABS: Absolute Neutrophil Count 6.6 X10^3/uL (2.0-7.7); Basophil# 0.05 X10^3/uL; Basophil% 0.6 % (0-1); Eosinophil# 0.14 X10^3/uL; Eosinophils% 1.6 % (0-5); Hematocrit 40.8 % (37-47); Hemoglobin 13.3 g/dL (12.0-15.0); Lymphocyte % 16.8 % (19-41); Mean Corp Hgb Conc 32.6 g/dL (32-36); Mean Corpuscular Hgb 31.4 pg (27.0-32.0); Mean Corpuscular Volume 96.2 fL (81-99); Mean Platelet Vol. 10.4 fl (6.2-12.0); Monocyte# 0.61 X10^3/uL; Monocyte% 6.8 % (0-10); NRBC Flagged by Analyzer 0 % (0-5); Neutrophil # 6.61 X10^3/uL (2.7-7.7); Neutrophil % 73.9 % (47-70); Platelet Count 300 K/mm3 (150-450); RBC Distribution Width CV 13.2 % (11.6-14.6); Red Blood Count 4.24 M/mm3 (4.2-5.4); White Blood Count 8.9 K/mm3 (4.4-11.0)
--- NOTE | 2021-12-18 11:37 | RAD_ITS ---
STUDY: X-RAY CHEST REASON FOR EXAM: Female, 71 years old. Chest pain TECHNIQUE: Single AP portable view of the chest. COMPARISON: Comparison is made with prior study dated 07/13/2021. FINDINGS: EKG electrodes are seen. Hyperinflation. Mild degree of increased markings at the lung bases slightly worse at the right lung base. This may represent either atelectasis and/or early infiltrates. There is no demonstrated pleural abnormality. Normal size heart. Normal mediastinum and sheron. Normal visualized pulmonary arteries. There is atherosclerotic calcification of the aortic arch with tortuosity. There is a mild levoscoliosis of the thoracic spine. Normal visualized ribs, clavicles, and shoulders. There is no demonstrated abnormality of the visualized soft tissue structures of the upper abdomen. RAD/Chest 1 View (Portable) IMPRESSION: Hyperinflation. Increased markings at the lung bases slightly more prominent on the right side. Early infiltrate should be ruled out. Electronically Signed: Casa Livingston MD at 12:07 EDT ,
[2021-12-18 11:47] LABS: Anion Gap 4 (5-15); BUN 18 mg/dL (7-18); BUN/Creat Ratio 14.4 RATIO (10-20); Calcium,Total 9.8 mg/dL (8.5-10.1); Chloride 106 mmol/L (98-107); Creatinine, Serum 1.25 mg/dL (0.55-1.02); EST Glomerular Filtration Rate 45 mL/min (>60); Est Glom Filt Rate - Afr Amer 54 mL/min (>60); Glucose 128 mg/dL (74-106); Potassium 4.2 mmol/L (3.5-5.1); Sodium Level 137 mmol/L (136-145); Troponin-I HS (w/2H Reflex) 24 pg/mL (3.0-54.0)
--- NOTE | 2021-12-18 11:49 | ED.RN ---
pt hypotensive post cardizem. dr. mayes notified at this time. verbal order to administer 1000 ml 0.9% ns bolus.
[2021-12-18] MEDS: 0.9% Normal Saline 1,000 ML 999 ML IV (11:50)
[2021-12-18 13:28] LABS: Reflex Troponin-HS? (from REC) Y
[2021-12-18] MEDS: Metoprolol Tartrate 5 MG/5 ML Vial IV (14:07)
[2021-12-18 14:41] LABS: Troponin-I HS 31 pg/mL (3.0-54.0)
--- NOTE | 2021-12-18 16:19 | PCM.HP.STD ---
[facility] - General General Date of Admission: 12/18/21 Date of Service: 12/18/21 Chief Complaint: Lightheadedness/nausea [facility] Narrative ANTON MOISE, is a 71 F who presented to the emergency department was [facility] on 12/18/2021 with a chief complaint of lightheadedness and nausea that started approximately 730 this morning. The patient states she felt normal when she got out of bed but then started having palpitations, lightheadedness, and nausea shortly after arriving at work. She has a known history of paroxysmal atrial fibrillation that has been refractory to medical therapy in the past and required cardioversion. She currently is on Multaq, metoprolol succinate 100 mg daily, and apixaban at home however her compliance with these medications has been questionable. She states that her last dose of apixaban was on Thursday evening. Finances appear to be an issue and it sounds like her daughter is helping her obtain these medications. She states that she gets very symptomatic when her heart rates get up into the 130s with associated nausea and lightheadedness. Upon my evaluation her heart rate was 110-120 and she was asymptomatic with regards to lightheadedness and nausea however she had persistent palpitations. She is a smoker of 1 pack/day but denies any other substance abuse. In the emergency department she was treated with Cardizem 20 mg x2 boluses IV push as well as metoprolol 5 mg IV push x1 dose. She was also given 150 mg IV bolus of amiodarone. Unfortunately none of these medications cause cardioversion or improved her rate overall. Unfortunately with noncompliance with regards to her Eliquis we are not comfortable with cardioversion at this time. I discussed the case with Dr. Mendoza from cardiology and he recommended we dose her with metoprolol 100 mg twice daily and discontinue her metoprolol succinate. Her first dose will be at 6 PM today. As well as give her a dig bolus of 0.5 mg x 1 dose. In the emergency department her vital signs were overall unremarkable other than her heart rates being elevated anywhere from 88-140. Her CBC was unremarkable. Her chemistry panel showed normal electrolytes with a slightly elevated serum creatinine at 1.25. Her baseline serum creatinine appears to be 0.8-0.9. Her initial troponin was 24 with a repeat at 31. Her chest x-ray shows hyperinflation with increased markings at the lung bases bilaterally. Her EKG shows atrial fibrillation versus atrial flutter with 2-1 block. In the emergency department upon my evaluation her rhythm appeared to be atrial flutter with variable block. [facility] Medical History (Updated 12/18/21 @ 16:[address] Areli Dominguez DO) Anemia Atherosclerotic heart disease of [place] coronary artery without angina pectoris Atrial fibrillation with RVR COPD (chronic obstructive pulmonary disease) COPD (chronic obstructive pulmonary disease) Essential hypertension GERD (gastroesophageal reflux disease) Hyperlipidemia Irritable bowel Left atrial enlargement Myoclonic disorder Paroxysmal atrial fibrillation with RVR Secondary pulmonary hypertension Sigmoid diverticulitis Thyroid nodule Tobacco abuse Home Medications tramadol 1 tab PO BID PRN 04/19/19 [History Last Taken 12/15/21] lisinopril 20 mg PO DAILY 01/08/21 [History Last Taken 12/18/21] budesonide-formoterol HFA 160 mcg-4.5 mcg/actuation aerosol inhaler 2 puff INHALATION BID 02/05/21 [History Last Taken 12/14/21] albuterol sulfate 90 mcg/actuation aerosol inhaler 2 puff INHALATION Q4H PRN PRN #8.5 g 08/06/21 [Rx Last Taken 12/16/21] hydrochlorothiazide 25 mg tablet 25 mg PO DAILY #90 tab 08/06/21 [Rx Last Taken 12/18/21] apixaban 5 mg tablet 5 mg PO BID #60 tab 08/14/21 [Rx Last Taken 12/17/21] dronedarone 400 mg tablet 400 mg PO BID #60 tab 08/14/21 [Rx Last Taken Unknown] clonazepam 2 mg PO BID PRN 12/18/21 [History Last Taken 12/16/21] metoprolol succinate 100 mg PO DAILY 12/18/21 [History Last Taken 12/18/21] Allergy/AdvReac Type Severity Reaction Status Date / Time levofloxacin [From Levaquin] Allergy Rash Verified 12/18/21 11:04 phenytoin [From Dilantin] Allergy Swelling Verified 12/18/21 11:04 sertraline AdvReac Intermediate anxiety Verified 12/18/21 11:04 Family History Mother Hypertension CVA (cerebral vascular accident) CAD (coronary artery disease) Father Colon cancer Leukemia Throat cancer Surgical History History of breast lump removal History of coronary artery stent placement (05/08/18) History of left heart catheterization (05/08/15) History of lobectomy of thyroid History of thyroidectomy History of total abdominal hysterectomy Social History housing: house number of children: 1 Smoking Status: Heavy Smoker (>10/day) Tobacco: How many years used: 50 alcohol intake: never substance use type: does not use ROS Constitutional Constitutional: Reports fatigue; Denies anorexia, change in weight, chills, fever(s), malaise, night sweats, weakness or other Eyes Eyes: Denies blurry vision, change in eye color, change in vision, discharge from eye(s), double vision, erythema, eye pain, loss of vision or other ENT HEENT: Denies abnormal hearing, dysphagia, ear pain, epistaxis, headache(s), hearing loss, nasal congestion, nasal discharge, post nasal drip, sinus pressure, sore throat or other Cardiovascular Cardiovascular: Reports lightheadedness, palpitations and rapid heart rate; Denies chest pain, claudication, dyspnea on exertion, edema, orthopnea, paroxysmal nocturnal dyspnea, syncope or other Respiratory/Chest Respiratory/Chest: Reports cough; Denies dyspnea, excessive phlegm production, hemoptysis, productive cough, shortness of breath at rest, shortness of breath with exertion, wheezing or other Gastrointestinal Gastrointestinal: Reports nausea; Denies abdominal pain, coffee ground emesis, constipation, diarrhea, dyspepsia, hematemesis, hematochezia, loose stools, melena, vomiting or other Genitourinary Genitourinary: Denies burning urination, difficulty urinating, dysuria, hematuria, nocturia, urinary frequency, urinary hesitancy, urinary incontinence, urinary urgency or other Musculoskeletal Musculoskeletal: Denies arthralgias, back pain, joint pain, joint stiffness, joint swelling, myalgias, neck pain or other Neurologic Neurologic: Reports other Details: Chronic myoclonic jerks ; Denies abnormal gait, abnormal speech, confusion, disequilibrium, dizziness, focal weakness, headache(s), numbness, paresthesias, seizure-like activity, seizures, syncope, tingling or tremor(s) Psychiatric Psychiatric: Denies anxiety, depression, homicidal ideation, suicidal ideation or other Hematologic/Lymphatic Hematologic/Lymphatic: Denies anemia, easy bleeding, easy bruising, lymphadenopathy or other Allergic/Immunologic Allergic/Immunologic: Denies rhinitis, hives, eczemia, asthma or other Vital Signs Vital Signs Vital Signs: 12/18/21 11:01 12/18/21 11:45 12/18/21 12:35 Temperature 97.8 F Temperature Source Temporal Pulse Rate 88 116 H 119 H Respiratory Rate 14 17 24 H Respiratory Effort Normal Non-Labored Blood Pressure 104/83 H 89/54 L 130/77 H Blood Pressure Mean 90 65 94 Blood Pressure Source Blood Pressure Position Blood Pressure Location Pulse Ox 97 95 95 Oxygen Delivery Method Room Air Room Air Room Air 12/18/21 14:08 12/18/21 14:29 12/18/21 15:05 Temperature 98.2 F Temperature Source Oral Pulse Rate 106 H 109 H 132 H Respiratory Rate 19 H 16 22 H Respiratory Effort Blood Pressure 111/85 H 111/85 H 113/74 Blood Pressure Mean 93 93 87 Blood Pressure Source Monitor Blood Pressure Position Sitting Blood Pressure Location Left Arm Pulse Ox 96 93 95 Oxygen Delivery Method Room Air Room Air 12/18/21 15:24 12/18/21 16:09 Temperature 98.6 F Temperature Source Temporal Pulse Rate 113 H 129 H Respiratory Rate 23 H 15 Respiratory Effort Blood Pressure 112/79 111/91 H Blood Pressure Mean 90 97 Blood Pressure Source Monitor Blood Pressure Position Sitting Blood Pressure Location Left Arm Pulse Ox 94 93 Oxygen Delivery Method Room Air Room Air Weight Weight: 60 kg Body Mass Index (BMI) 21.3 Physical Exam Const alert and oriented x3 Constitutional Narrative: Thin, older white female who appears older than stated age, sitting up in bed, daughter at the bedside, patient appears comfortable and nontoxic, heart rates are anywhere from 115-135 at the time of my evaluation HEENT normocephalic, head/scalp atraumatic, hearing grossly normal bilaterally and moist oral mucous membranes HEENT Narrative: Dentition is fair for age, Mallampati is 2, no thrush Eyes PERRL, EOMs intact bilaterally and conjunctivae normal Eyes Narrative: No scleral icterus Neck no lymphadenopathy, supple, no JVD and no carotid bruits Neck Narrative: Trachea midline, no thyroid enlargement Resp normal respiratory effort, no retractions, no use of accessory muscles and clear to auscultation bilaterally Resp Narrative: Markedly diminished diffusely Auscultation: Negative for crackles, rales, rhonchi or wheezes Cardio S1 normal heart sound, S2 normal heart sound, no murmurs, no rub, no gallops, no clicks and no JVD Cardio Narrative: Tachycardia with irregular regular rhythm GI normal to inspection, nondistended, normoactive bowel sounds, soft to palpation, non-tender and non-distended GI Narrative: Thin Extremity Extremity Narrative: Patient with bilateral upper extremity clubbing and nicotine stains on her fingers, no cyanosis or edema Peripheral Pulses: Yes pulses 2+ throughout Skin no rashes or lesions noted, no wounds, skin turgor normal, no jaundice, no petechiae and no mottling Neuro oriented x3, CN's II-XII intact bilaterally, moves all extremities and no focal motor deficits Sensorium / Orientation: awake and alert Speech: speech normal Motor Exam: strength 5/5 throughout Psych affect normal Results Lab / Micro Data Result Diagrams: 12/18/21 11:25 12/18/21 11:25 Labs: Laboratory Results - last 24 hr 12/18/21 11:25: WBC 8.9, RBC 4.24, Hgb 13.3, Hct 40.8, MCV 96.2, MCH 31.4, MCHC 32.6, RDW Std Deviation 47.0 H, RDW Coeff of Claudia 13.2, Plt Count 300, MPV 10.4, Immature Gran % (Auto) 0.300, Neut % (Auto) 73.9 H, Lymph % (Auto) 16.8 L, [place] % (Auto) 6.8, Eos % (Auto) 1.6, Baso % (Auto) 0.6, Absolute Neuts (auto) 6.6, Absolute Lymphs (auto) 1.50, Nucleated RBC % 0 12/18/21 11:25: Sodium 137, Potassium 4.2, Chloride 106, Carbon Dioxide 27.0, Anion Gap 4 L, BUN 18, Creatinine 1.25 H, Estim Creat Clear Calc 39.20, Est GFR (MDRD) Af Amer 54 L, Est GFR (MDRD) Non-Af 45 L, BUN/Creatinine Ratio 14.4, Glucose 128 H, Calcium 9.8, Troponin I High Sens 24 12/18/21 14:09: Troponin I High Sens 31 Radiology Impression Chest X-Ray 12/18/21 11:37 IMPRESSION: Hyperinflation. Increased markings at the lung bases slightly more prominent on the right side. Early infiltrate should be ruled out. Electronically Signed: Casa Livingston MD at 12:07 EDT , Assessment & Plan Assessment/Plan (1) Creatinine elevation: (2) Nausea: (3) Atrial fibrillation with RVR: (4) Lightheadedness: PLAN: Atrial fibrillation with RVR -Patient with history of paroxysmal atrial fibrillation that has been difficult to control previously -Current medications at home have included Multaq, metoprolol succinate 100 mg daily, and apixaban -Patient ran out of apixaban and last dose was on Thursday evening -There seems to be some compliance issues overall with her medications in general -No need for repeat echocardiogram -Last echo was December 2020 at which time she had a normal EF, a moderately dilated atria and pulmonary artery hypertension -We will change metoprolol succinate to metoprolol tartrate 100 mg p.o. twice daily with first dose being at 6 PM this evening -One-time dose of digoxin 0.5 mg IV push -Continue home Eliquis and Multaq -Check TSH -Consult cardiology since this has been refractory previously Lightheadedness/nausea -These are symptoms related to above uncontrolled rate -As needed antiemetics available -We will focus on rate control Serum creatinine elevation -Baseline serum creatinine appears to be 0.8-0.9 -Current serum creatinine is 1.25 -We will hold home HCTZ since she does appear slightly dry -Consider restarting tomorrow CAD/HTN -Continue home lisinopril -Continue home metoprolol but convert to metoprolol tartrate 100 twice daily -Hold home HCTZ -Patient is not on an aspirin -It appears she was previously on Plavix last documented at her cardiology visit 08/06/2021 -Unclear why she is not on any antiplatelet therapy with her history of coronary disease -Had PCI to RCA in 2018 so I suspect she should at least be on aspirin -Start aspirin 81 mg daily COPD/tobacco abuse -Recommend tobacco cessation -Hold home albuterol inhaler -As needed albuterol nebulizer -Continue home budesonide/formoterol HFA Myoclonic disorder -Continue as needed benzodiazepine Secondary pulmonary hypertension -Who group 3 related to lung disease from COPD -Recommend tobacco cessation DVT prophylaxis -Restart home Eliquis CODE STATUS -Full code Charges/Coding Visit Charges Inpatient E&M: 80659 Init Hosp L3
--- NOTE | 2021-12-18 17:12 | CON.PCM.CA_ITS ---
Assessment & Plan Assessment/Plan (1) Atrial fibrillation with RVR: PLAN: She does have paroxysmal atrial fibrillation and on this occasion appears to have an uncontrolled ventricular response rate. The present episode may have been precipitated by the lack of compliance with her medications. I would like her to resume her anticoagulation as well as increase her beta- fariba to short acting metoprolol tartrate 100 mg twice a day. She has previously been on Multaq which would be continued for now. At some point the discussion as to whether she would be a candidate for A. fib ablation have been raised. She is not sure whether she wants to discuss this at this particular time but this would have to be revisited. (2) History of coronary artery stent placement: PLAN: She does have a history of previous coronary artery stenting. I do not have any indication that this is ischemically mediated. We will continue to monitor her with serial cardiac enzymes. (3) Essential hypertension: PLAN: Her blood pressure appears to be under good control at this particular time I would not recommend that we make any changes with respect to her blood pressure medications. She will remain on the beta-fariba as well as the KARINE inhibitor. She will also continue her diuretic regimen. Thank you for allowing me to participate in the care of your patient. Please don't hesitate to call if any issues arise. HPI Consult Data Date of Consult: 12/18/21 HPI Narrative HPI Narrative: ANTON MOISE, is a 71 F who presents with palpitations to the emergency room and is noted to be in atrial fibrillation with a rapid ventricular response rate. Unfortunately she has not been very compliant with her medications. She does have a history of coronary artery disease status post PCI and stenting in 2018 at [facility] as well as repeated cardioversions. She also has a history of obstructive lung disease and secondary pulmonary hypertension. She previously used to follow-up with the physicians and [place] but more recently has preferred to be evaluated in this hospital. Her last visit to the office was a few months ago and at that time she had been doing well with no complaints. She had presented to the emergency room in June 2021 and was noted to be in atrial fibrillation with a rapid ventricular response rate and underwent attempted DC cardioversion which was unsuccessful. She was subsequently treated with medication. She denies chest, jaw, or neck discomfort. She states shortness of breath with exertion that improved with inhaler. She denies symptoms of shortness of breath at rest, orthopnea, PND, or sudden weight gain. She continues with bilateral lower extremity edema. She states productive and non-productive chronic cough. She denies palpitations, lightheadedness, dizziness, near syncope, or syncopal episodes. She denies claudication issues. She denies fever or chills. She denies blood in urine, blood in stool, or epistaxis. She denies myalgia. She denies unexplainable fatigue. Her exercise tolerance is stable. In the emergency room today she was administered 2 doses of intravenous diltiazem with not significant slowing and so she was given intravenous amiodarone. It was felt that she should be admitted for better rate control. Her anticoagulation will be restarted. [facility] Medical History Anemia Atherosclerotic heart disease of [place] coronary artery without angina pectoris Atrial fibrillation with RVR COPD (chronic obstructive pulmonary disease) COPD (chronic obstructive pulmonary disease) Essential hypertension GERD (gastroesophageal reflux disease) Hyperlipidemia Irritable bowel Left atrial enlargement Myoclonic disorder Paroxysmal atrial fibrillation with RVR Secondary pulmonary hypertension Sigmoid diverticulitis Thyroid nodule Tobacco abuse Home Medications tramadol 1 tab PO BID PRN 04/19/19 [History Last Taken 12/15/21] lisinopril 20 mg PO DAILY 01/08/21 [History Last Taken 12/18/21] budesonide-formoterol HFA 160 mcg-4.5 mcg/actuation aerosol inhaler 2 puff INHALATION BID 02/05/21 [History Last Taken 12/14/21] albuterol sulfate 90 mcg/actuation aerosol inhaler 2 puff INHALATION Q4H PRN PRN #8.5 g 08/06/21 [Rx Last Taken 12/16/21] hydrochlorothiazide 25 mg tablet 25 mg PO DAILY #90 tab 08/06/21 [Rx Last Taken 12/18/21] apixaban 5 mg tablet 5 mg PO BID #60 tab 08/14/21 [Rx Last Taken 12/17/21] dronedarone 400 mg tablet 400 mg PO BID #60 tab 08/14/21 [Rx Last Taken Unknown] clonazepam 2 mg PO BID PRN 12/18/21 [History Last Taken 12/16/21] metoprolol succinate 100 mg PO DAILY 12/18/21 [History Last Taken 12/18/21] Allergy/AdvReac Type Severity Reaction Status Date / Time levofloxacin [From Levaquin] Allergy Rash Verified 12/18/21 11:04 phenytoin [From Dilantin] Allergy Swelling Verified 12/18/21 11:04 sertraline AdvReac Intermediate anxiety Verified 12/18/21 11:04 Family History Mother Hypertension CVA (cerebral vascular accident) CAD (coronary artery disease) Father Colon cancer Leukemia Throat cancer Surgical History History of breast lump removal History of coronary artery stent placement (05/08/18) History of left heart catheterization (05/08/15) History of lobectomy of thyroid History of thyroidectomy History of total abdominal hysterectomy Social History housing: house number of children: 1 Smoking Status: Heavy Smoker (>10/day) Tobacco: How many years used: 50 alcohol intake: never substance use type: does not use ROS Constitutional Constitutional: Denies fever(s) or weight loss Eyes Eyes: Reports systems reviewed and no addt'l complaints, except as documented ENT HEENT: Reports systems reviewed and no addt'l complaints, except as documented Cardiovascular Cardiovascular: Reports palpitations; Denies chest pain at rest, chest pain with activity, dyspnea at rest, dyspnea on exertion, edema or paroxysmal nocturnal dyspnea Respiratory/Chest Respiratory/Chest: Denies dyspnea on exertion, productive cough, shortness of breath at rest or shortness of breath with exertion Gastrointestinal Gastrointestinal: Denies change in bowel habits, nausea, vomiting or weight ch anges Genitourinary Genitourinary: Denies difficulty urinating Musculoskeletal Musculoskeletal: Denies joint stiffness or muscle weakness Integumentary Integumentary: Denies lesions Neurologic Neurologic: Denies dizziness or syncope Psychiatric Psychiatric: Denies anxiety Endocrine Endocrinology: Denies excessive sweating or fatigue Hematologic/Lymphatic Hematologic/Lymphatic: Denies anemia Allergic/Immunologic Allergic/Immunologic: Denies seasonal rhinorrhea Physical Exam Const alert, oriented x3 and no apparent distress General Appearance: cooperative HEENT hearing grossly normal bilaterally Head and Scalp: atraumatic Eyes EOMs intact bilaterally Neck General: normal visual inspection Chest inspection of chest normal and palpation of chest normal Resp normal respiratory effort Auscultation: clear to auscultation bilaterally Cardio S1 normal heart sound and S2 normal heart sound Jugular Venous Distention: JVD Rhythm: abnormal rhythm GI normal to inspection, nondistended, normoactive bowel sounds Extremity normal capillary refill and no pedal edema Peripheral Pulses: Yes pulses 2+ throughout and femoral pulses present Skin no rashes or lesions noted Neuro oriented x3 and CN's II-XII intact bilaterally Psych Appearance: grossly normal and appropriate Risk Stratification Risk Stratification Applicable: No Objective Data Vital Signs: Vital Signs Temp Pulse Resp BP Pulse Ox 97.9 F 129 H 20 H 105/77 93 12/18/21 16:51 12/18/21 16:51 12/18/21 16:51 12/18/21 16:51 12/18/21 16:51 Oxygen Delivery Method Room Air Weight: 148 lb 8 oz Body Mass Index (BMI) 23.9 Intake & Output: Intake and Output for Last 24 Hours 12/16/21 12/17/21 12/18/21 23:59 23:59 23:59 Intake Total 1165.5 / 1165.5 Balance 1165.5 / 1165.5 Lab / Micro Data Result Diagrams: 12/18/21 11:25 12/18/21 11:25 Labs: Laboratory Results - last 24 hr 12/18/21 11:25: WBC 8.9, RBC 4.24, Hgb 13.3, Hct 40.8, MCV 96.2, MCH 31.4, MCHC 32.6, RDW Std Deviation 47.0 H, RDW Coeff of Claudia 13.2, Plt Count 300, MPV 10.4, Immature Gran % (Auto) 0.300, Neut % (Auto) 73.9 H, Lymph % (Auto) 16.8 L, [place] % (Auto) 6.8, Eos % (Auto) 1.6, Baso % (Auto) 0.6, Absolute Neuts (auto) 6.6, Absolute Lymphs (auto) 1.50, Nucleated RBC % 0 12/18/21 11:25: Sodium 137, Potassium 4.2, Chloride 106, Carbon Dioxide 27.0, Anion Gap 4 L, BUN 18, Creatinine 1.25 H, Estim Creat Clear Calc 39.20, Est GFR (MDRD) Af Amer 54 L, Est GFR (MDRD) Non-Af 45 L, BUN/Creatinine Ratio 14.4, Glucose 128 H, Calcium 9.8, Troponin I High Sens 24 12/18/21 14:09: Troponin I High Sens 31 Cardiology Labs/Tests 12/18/21 11:25: WBC 8.9, RBC 4.24, Hgb 13.3, Hct 40.8, MCV 96.2, MCH 31.4, MCHC 32.6, Plt Count 300, MPV 10.4, Immature Gran % (Auto) 0.300, Neut % (Auto) 73.9 H, Lymph % (Auto) 16.8 L, [place] % (Auto) 6.8, Eos % (Auto) 1.6, Baso % (Auto) 0.6, Absolute Neuts (auto) 6.6, Nucleated RBC % 0 12/18/21 11:25: Sodium 137, Potassium 4.2, Chloride 106, Carbon Dioxide 27.0, Anion Gap 4 L, BUN 18, Creatinine 1.25 H, Est GFR (MDRD) Af Amer 54 L, Est GFR (MDRD) Non-Af 45 L, BUN/Creatinine Ratio 14.4, Glucose 128 H, Calcium 9.8 Rhythm: EKG: ECHO: Stress Test: Cardiac Cath: PCI: CT Surgery: Holter monitor: EPS: PPM: CXR: Chest CT Scan: Radiography Diagnostic Testing: Radiology Impression Chest X-Ray 12/18/21 11:37 IMPRESSION: Hyperinflation. Increased markings at the lung bases slightly more prominent on the right side. Early infiltrate should be ruled out. Electronically Signed: Casa Livingston MD at 12:07 EDT ,
--- NOTE | 2021-12-18 17:17 | CM.ED ---
RN CM Assessment Introduced role of RN CM to patient and patient Dtr Jacqueline Martines at bedside.? Patient is alert, oriented and able?to participate in RN CM Assessment. ?Care providers, pharmacy, and demographics verified. Admit Dx: IP for Afib RVR Re-Admit: No Barriers/Issues: Has h/o Afib on Eliquis. Approx 5 months ago required Cardioversion, Chemical cardioversion unsuccessful. Patient needing ablation- F/u with [facility] and no appt until April. PCP: Adarsh Urbina Specialists: Karen Washubrn Preferred Pharmacy: [facility] Insurance: [employer] Rx Benefit:?Yes LNOK: Dtr Jacqueline Martines LW/HPOA: None, AD information with SW rack card provided. Informed can complete inpatient or outpatient. Patient voices interest in completion this admission. Living Arrangements:? Lives with (currently seperated?) in a SSH, no steps to enter home ADL?s: Independent with ambulation and ADLs/IADLs Transportation: Patient drives DME: None HHC: None SNF: None Goal: Home and does not think will have any issues or concerns with returning home. States MOD is s/w Cardio Dr Mendoza re: Cardioversion. DC PLAN: Home with no anticipated needs identified at this time. Tung Hernandez RNCM
[2021-12-18] MEDS: Metoprolol Tartrate 100 MG Tablet PO ×2 (17:59→23:20)
[2021-12-18] MEDS: Digoxin 250 MCG/ML Ampul 500 MCG IV (18:00)
[2021-12-18 18:50] LABS: Troponin-I HS 33 pg/mL (3.0-54.0)
[2021-12-18] MEDS: APIXABAN 5 MG TABLET PO (20:21)
--- NOTE | 2021-12-18 20:58 | EKG12_ITS ---
Test Reason : RYTHM CHANGE Blood Pressure : / mmHG Vent. Rate : 063 BPM Atrial Rate : 063 BPM P-R Int : 152 ms QRS Dur : 080 ms QT Int : 428 ms P-R-T Axes : 049 045 123 degrees QTc Int : 437 ms Normal sinus rhythm Nonspecific ST and T wave abnormality Abnormal ECG Confirmed by MIGUEL GRIMALDO, APRIL ([id number]), associate entertainment editor [facility] CUTLER ([id number]) on 12/26/2021 1:03:57 PM Referred By: ARACELI Confirmed By:APRIL RIVERA MD
[2021-12-18] MEDS: Budesonide Respules 0.5 MG/2 ML AMPUL.NEB. INHALATION (21:50)
[2021-12-19 03:32] VITALS: PULSE 59
[2021-12-19 03:43] VITALS: BP 139/77; PULSE 55; RESP 18; TEMP 35.9; O2SAT 96
[2021-12-19 05:53] LABS: AST(SGOT) 13 U/L (15-37); Alanine Aminotransfer ALT/SGPT 15 U/L (13-56); Albumin, Serum 3.2 g/dL (3.2-5.0); Alkaline Phosphatase 77 U/L (45-117); Anion Gap 4 (5-15); BUN 22 mg/dL (7-18); BUN/Creat Ratio 22.2 RATIO (10-20); Calcium,Total 8.2 mg/dL (8.5-10.1); Chloride 110 mmol/L (98-107); Creatinine, Serum 0.99 mg/dL (0.55-1.02); EST Glomerular Filtration Rate 59 mL/min (>60); Est Glom Filt Rate - Afr Amer 71 mL/min (>60); Globulin 3.2 g/dL (2.2-4.2); Glucose 105 mg/dL (74-106); Magnesium 1.9 mg/dL (1.6-2.6); Phosphorus 3.3 mg/dL (2.5-4.9); Potassium 4.1 mmol/L (3.5-5.1); Protein, Total 6.4 g/dL (6.4-8.2); Sodium Level 138 mmol/L (136-145); Thyroid Stim Hormone (TSH) 1.84 uIU/mL (0.358-3.74)
[2021-12-19 07:18] VITALS: PULSE 55
[2021-12-19 07:20] VITALS: PULSE 57; RESP 17; O2SAT 95
[2021-12-19 08:22] VITALS: BP 136/68; PULSE 60; RESP 15; TEMP 36.8; O2SAT 97
[2021-12-19] MEDS: Lisinopril 20 MG Tablet PO (08:24)
[2021-12-19] MEDS: APIXABAN 5 MG TABLET PO (08:24)
[2021-12-19 08:25] VITALS: BP 136/68; PULSE 60
[2021-12-19] MEDS: Metoprolol Tartrate 100 MG Tablet PO (08:25)
--- NOTE | 2021-12-19 10:57 | DCINST_ITS ---
Discharge Instructions Diet Discharge Diet: Low fat / Low cholesterol Activity Discharge Activity: Return to Normal Activity Dressing / Incision Call your doctor if you observe: Shortness of breath, Dizziness, Chest pain and Increased palpitations (irregular heartbeat) Follow Up Care Test Results: Test results from this visit will be discussed in further detail at your follow-up appointment, if applicable. Discharge Plan Admission Admit Date/Time: 12/18/21 15:43 Primary Reason for Your Visit: Atrial fibrillation Attending Provider: Berry Franks Primary Care Provider: Adarsh Urbina Consulting Providers: Yousif Mendoza Discharge Orders/Prescriptions Prescriptions: New metoprolol tartrate 100 mg Tablet 100 mg PO BID 30 Days Qty: 60 RF: 0 aspirin 81 mg capsule 81 mg PO DAILY Qty: 30 RF: 0 Continued budesonide-formoterol 160-4.5 mcg/actuation HFA aerosol inhaler 2 puff inhalation BID RF: 0 albuterol sulfate 90 mcg/actuation HFA aerosol inhaler 2 puff inhalation Q4H PRN PRN (Reason: Sob &/Or Wheezing) Qty: 8.5 RF: 0 hydrochlorothiazide 25 mg tablet 25 mg PO DAILY Qty: 90 RF: 3 tramadol 50 MG tablet 1 tab PO BID PRN (Reason: Pain) RF: 0 lisinopril 20 mg tablet 20 mg PO DAILY RF: 0 clonazepam 2 mg tablet 2 mg PO BID PRN (Reason: Anxiety) RF: 0 Eliquis 5 mg tablet 5 mg PO BID Qty: 60 RF: 0 Multaq 400 mg tablet 400 mg PO BID Qty: 60 RF: 11 Discontinued metoprolol succinate 100 mg tablet extended release 24 hr 100 mg PO DAILY RF: 0 Referrals / Follow Up: Adarsh Urbina MD [Primary Care Provider] - In 1 Week Jose Dave NP, [facility] [Nurse Practitioner] - In 1 Week (Requesting EP referral at follow-up appointment) Disposition Disposition (needs filled in before D/C Order can be placed): Home, Self Care
--- NOTE | 2021-12-19 11:15 | DS.PCM_ITS ---
Documented by User: Leanna John NP, G[employer]ATION SERVICE ATTENDANT-C 12/19/21 11:34 Providers Date of Admission: 12/18/21 Date of Discharge: 12/19/21 Primary Care Physician: Dr. Adarsh Urbina MD Consultations 12/18/21 17:21 Consult: Cardiology Routine Consulting Provider: Yousif Mendoza Reason for Consult: PAF EMERGENT Consult: No MD Notified: Yes Date Notified: 12/18/21 Time Notified: 16:17 Method of Notification: Verbal Reason For Visit: AFIB WITH RVR Diagnosis Discharge Diagnosis (1) Atrial fibrillation with RVR: Status: Acute Code(s): I48.91 - Unspecified atrial fibrillation (2) History of coronary artery stent placement: Status: Chronic Code(s): Z95.5 - Presence of coronary angioplasty implant and graft (3) Essential hypertension: Status: Acute Code(s): I10 - Essential (primary) hypertension Medications at Discharge Home Medications tramadol 1 tab PO BID PRN 04/19/19 lisinopril 20 mg PO DAILY 01/08/21 budesonide-formoterol HFA 160 mcg-4.5 mcg/actuation aerosol inhaler 2 puff INHALATION BID 02/05/21 albuterol sulfate 90 mcg/actuation aerosol inhaler 2 puff INHALATION Q4H PRN PRN #8.5 g 08/06/21 hydrochlorothiazide 25 mg tablet 25 mg PO DAILY #90 tab 08/06/21 dronedarone 400 mg tablet 400 mg PO BID #60 tab 08/14/21 clonazepam 2 mg PO BID PRN 12/18/21 Eliquis 5 mg PO BID #60 tab 12/19/21 aspirin 81 mg PO DAILY #30 cap 12/19/21 metoprolol tartrate 100 mg PO BID 30 Days #60 tab 12/19/21 Hospital Course Operations None Procedures None Summary of Care Provided Hospital Course: Patient is a 71-year-old female admitted 12/18/2021 due to A. fib with RVR. 1. A. fib with RVR-troponin negative. Cardiology consulted. Increased metoprolol to short acting 100 mg twice daily. Continue home Multaq. Patient recently ran out of [place], given Rx at discharge and discussed importance of compliance. Patient and daughter interested in referral for EP evaluation which had been previously mentioned by cardiology. Follow-up with cardiology in 1 week and further discuss EP referral for ablation. 2. CAD with history of PCI to RCA/hypertension-continue lisinopril, Toprol, HCTZ. Initiated on aspirin. Not on statin. 3. Chronic COPD/pulmonary hypertension-continue home inhaler regimen. 4. Tobacco dependence-encouraged cessation. 5. Myoclonic disorder-on as needed benzodiazepine. Patient seen and examined prior to discharge. Physical assessment as noted above. Patient is stable for discharge with follow up recommendations as noted above. This patient was seen by MATT Johnson under the supervision of Dr. Franks. Time spent examining patient, reviewing data and subsequent management of care: Physical Exam Const alert, oriented x3 and no apparent distress Orientation / Consciousness: awake, oriented to person, oriented to place and oriented to time HEENT normocephalic and moist oral mucous membranes Eyes PERRL, EOMs intact bilaterally and conjunctivae normal Neck no lymphadenopathy Resp clear to auscultation bilaterally Auscultation: diminished lung sounds Cardio regular rate, regular rhythm and no murmurs Peripheral Pulses: pulses 2+ throughout GI normal to inspection, nondistended, normoactive bowel sounds, non-tender and non-distended Extremity normal to inspection Skin no rashes or lesions noted Lesions: no lesions Rashes: no rashes Trauma: no lacerations or abrasions Neuro CN's II-XII intact bilaterally, no focal motor deficits, no sensory deficits noted and deep tendon reflexes 2+ bilaterally Psych mental status grossly normal and affect normal Weight / BMI Weight Weight: 148 lb 8 oz Body Mass Index (BMI) 23.9 ABG / Lab / Microbiology Data Result Diagrams: 12/18/21 11:25 12/19/21 04:26 Laboratory: Laboratory Results - last 24 hr 12/18/21 11:25: WBC 8.9, RBC 4.24, Hgb 13.3, Hct 40.8, MCV 96.2, MCH 31.4, MCHC 32.6, RDW Std Deviation 47.0 H, RDW Coeff of Claudia 13.2, Plt Count 300, MPV 10.4, Immature Gran % (Auto) 0.300, Neut % (Auto) 73.9 H, Lymph % (Auto) 16.8 L, [place] % (Auto) 6.8, Eos % (Auto) 1.6, Baso % (Auto) 0.6, Absolute Neuts (auto) 6.6, Absolute Lymphs (auto) 1.50, Nucleated RBC % 0 12/18/21 11:25: Sodium 137, Potassium 4.2, Chloride 106, Carbon Dioxide 27.0, Anion Gap 4 L, BUN 18, Creatinine 1.25 H, Estim Creat Clear Calc 39.20, Est GFR (MDRD) Af Amer 54 L, Est GFR (MDRD) Non-Af 45 L, BUN/Creatinine Ratio 14.4, Glucose 128 H, Calcium 9.8, Troponin I High Sens 24 12/18/21 14:09: Troponin I High Sens 31 12/18/21 18:08: Troponin I High Sens 33 12/19/21 04:26: Sodium 138, Potassium 4.1, Chloride 110 H, Carbon Dioxide 24.0, Anion Gap 4 L, BUN 22 H, Creatinine 0.99, Estim Creat Clear Calc 49.50, Est GFR (MDRD) Af Amer 71, Est GFR (MDRD) Non-Af 59 L, BUN/Creatinine Ratio 22.2 H, Glucose 105, Calcium 8.2 L, Phosphorus 3.3, Magnesium 1.9, Total Bilirubin 0.30, AST 13 L, ALT 15, Alkaline Phosphatase 77, Total Protein 6.4, Albumin 3.2, Globulin 3.2, Albumin/Globulin Ratio 1.0, TSH 1.84 Radiography Diagnostic Testing: Radiology Impression Chest X-Ray 12/18/21 11:37 IMPRESSION: Hyperinflation. Increased markings at the lung bases slightly more prominent on the right side. Early infiltrate should be ruled out. Electronically Signed: Casa Livingston MD at 12:07 EDT Reading Location ID and State: [facility] / [place] , Service support , D/C Instructions Discharge Diet: Low fat / Low cholesterol Call your doctor if you observe: Shortness of breath, Dizziness, Chest pain and Increased palpitations (irregular heartbeat) Meaningful Use Info Meaningful Use Diagnoses (Choose all that apply): None applicable Discharge Plan Admission Admit Date/Time: 12/18/21 15:43 Primary Reason for Your Visit: Atrial fibrillation Attending Provider: eBrry Franks Primary Care Provider: Adarsh Urbina Consulting Providers: Yousif Mendoza Discharge Orders/Prescriptions Prescriptions: New metoprolol tartrate 100 mg Tablet 100 mg PO BID 30 Days Qty: 60 RF: 0 aspirin 81 mg capsule 81 mg PO DAILY Qty: 30 RF: 0 Continued budesonide-formoterol 160-4.5 mcg/actuation HFA aerosol inhaler 2 puff inhalation BID RF: 0 albuterol sulfate 90 mcg/actuation HFA aerosol inhaler 2 puff inhalation Q4H PRN PRN (Reason: Sob &/Or Wheezing) Qty: 8.5 RF: 0 hydrochlorothiazide 25 mg tablet 25 mg PO DAILY Qty: 90 RF: 3 tramadol 50 MG tablet 1 tab PO BID PRN (Reason: Pain) RF: 0 lisinopril 20 mg tablet 20 mg PO DAILY RF: 0 clonazepam 2 mg tablet 2 mg PO BID PRN (Reason: Anxiety) RF: 0 Eliquis 5 mg tablet 5 mg PO BID Qty: 60 RF: 0 Multaq 400 mg tablet 400 mg PO BID Qty: 60 RF: 11 Discontinued metoprolol succinate 100 mg tablet extended release 24 hr 100 mg PO DAILY RF: 0 Referrals / Follow Up: Adarsh Urbina MD [Primary Care Provider] - In 1 Week Jose Dave NP, G[employer]ATION SERVICE ATTENDANT-C [Nurse Practitioner] - In 1 Week (Requesting EP referral at follow-up appointment) Disposition Disposition (needs filled in before D/C Order can be placed): Home, Self Care Documented by User: Dr. Berry Franks MD 12/19/21 16:11 Providers Date of Admission: 12/18/21 Reason For Visit: AFIB WITH RVR Medications at Discharge Home Medications tramadol 1 tab PO BID PRN 04/19/19 lisinopril 20 mg PO DAILY 01/08/21 budesonide-formoterol HFA 160 mcg-4.5 mcg/actuation aerosol inhaler 2 puff INHALATION BID 02/05/21 albuterol sulfate 90 mcg/actuation aerosol inhaler 2 puff INHALATION Q4H PRN PRN #8.5 g 08/06/21 hydrochlorothiazide 25 mg tablet 25 mg PO DAILY #90 tab 08/06/21 dronedarone 400 mg tablet 400 mg PO BID #60 tab 08/14/21 clonazepam 2 mg PO BID PRN 12/18/21 Eliquis 5 mg PO BID #60 tab 12/19/21 aspirin 81 mg PO DAILY #30 cap 12/19/21 metoprolol tartrate 100 mg PO BID 30 Days #60 tab 12/19/21 Hospital Course Summary of Care Provided Hospital Course: This patient was seen in conjunction with GAS STATION SERVICE ATTENDANT, Leanna. I have independently interviewed and examined the patient and reviewed pertinent history, examination findings, laboratory and plan of management. I have reviewed the note and agree with the documented findings with the few additional points. In brief, patient is admitted for nausea and lightheadedness, palpitation and found to be A. fib with RVR. Patient has history of paroxysmal A. fib refractory to medical therapy in the past and required cardioversion. She is on metoprolol and Multaq. She did not respond to Cardizem 20 mg x 2 boluses, metoprolol 5 mg IV bolus, 150 mg IV bolus amiodarone did not cause cardioversion or improvement. Therefore she was admitted in PCU. Patient was started on metoprolol 200 mg twice daily and was given digoxin bolus 0.5 mg. Action Installer was consulted. Subsequently her heart rate improved. She also ran out of apixaban therefore prescription was given at the time of discharge. Patient had echo in December 2020 shows normal EF, moderately dilated atria and pulmonary hypertension. Serial Heisner troponins were negative. TSH normal. Serum potassium, magnesium and phosphorus level normal. Discussed with the tire center manager. Patient is discharged on present dose of metoprolol tartrate 100 mg twice daily and Multaq 400 mg twice daily. Prescription for Eliquis given. Patient also has a history of COPD on Symbicort inhaler and albuterol inhaler. Other comorbidities include hypertension, active smoker, coronary artery disease status post PCI to RCA and mild chronic disorder. Discharge medication reconciliation done. Discharge follow-up instructions completed. Discharge process discussed with the patient and all questions were answered to patient's satisfaction. Total time spent, exact 35 minutes on discharge meds reconciliation, examina tion, coordination of care with nurses and ancillary staff, review of imaging and blood test and discussion with the patient on follow-up instructions. I have discussed my assessment with GAS STATION SERVICE ATTENDANTLeanna and orders have been reviewed. Physical Exam Narrative The patient was admitted with A. fib with RVR. She has history of A. fib with recurrent occasions of RVR in the past, not controlled on medications. Discussed further EP evaluation as an outpatient. Currently her heart rate is controlled. Sinus bradycardia 58 bpm on monitor. Denies chest pain/pressure but had palpitations/pounding sensation feeling yesterday. General: Alert, Oriented x3, Cooperative HEENT: Atraumatic, PERRLA, EOMI, Normocephalic Oral: No Gingival or Mucosal Lesions/ Ulcerations Neck: Supple, No JVD, Negative Carotid Bruits Lungs: Air entry diminished in bilateral lung bases. No crepitation/rhonchi Cardiovascular: Sinus rhythm, Normal S1, Normal S2, LLSB systolic murmur Abdomen: Bowel Sounds Present, Soft, Non Tender, Non-Distended : No renal angle tenderness. No suprapubic tenderness. Extremities: No edema, Capillary Refill Less than 3 Seconds Skin: No rashes, No breakdown Musculoskeletal: No Tenderness to Palpation of Joints or Extremities Neurological: Cranial nerves II-XII grossly intact, DTR 2+/4 and Symmetrical, Neuro grossly intact Psych/Mental Status: Normal Affect, Appropriate ABG / Lab / Microbiology Data Result Diagrams: 12/18/21 11:25 12/19/21 04:26 Discharge Plan Admission Admit Date/Time: 12/18/21 15:43 Primary Reason for Your Visit: Atrial fibrillation Attending Provider: Berry Franks Primary Care Provider: Adarsh Urbina Consulting Providers: Yousif Mendoza Discharge Orders/Prescriptions Prescriptions: New metoprolol tartrate 100 mg Tablet 100 mg PO BID 30 Days Qty: 60 RF: 0 aspirin 81 mg capsule 81 mg PO DAILY Qty: 30 RF: 0 Continued budesonide-formoterol 160-4.5 mcg/actuation HFA aerosol inhaler 2 puff inhalation BID RF: 0 albuterol sulfate 90 mcg/actuation HFA aerosol inhaler 2 puff inhalation Q4H PRN PRN (Reason: Sob &/Or Wheezing) Qty: 8.5 RF: 0 hydrochlorothiazide 25 mg tablet 25 mg PO DAILY Qty: 90 RF: 3 tramadol 50 MG tablet 1 tab PO BID PRN (Reason: Pain) RF: 0 lisinopril 20 mg tablet 20 mg PO DAILY RF: 0 clonazepam 2 mg tablet 2 mg PO BID PRN (Reason: Anxiety) RF: 0 Eliquis 5 mg tablet 5 mg PO BID Qty: 60 RF: 0 Multaq 400 mg tablet 400 mg PO BID Qty: 60 RF: 11 Discontinued metoprolol succinate 100 mg tablet extended release 24 hr 100 mg PO DAILY RF: 0 Referrals / Follow Up: Adarsh Urbina MD [Primary Care Provider] - In 1 Week Jose Dave NP, GAS STATION SERVICE ATTENDANT-C [Nurse Practitioner] - In 1 Week (Requesting EP referral at follow-up appointment) Disposition Disposition (needs filled in before D/C Order can be placed): Home, Self Care Charges/Coding Visit Charges Inpatient E&M: 89616 Disch Hosp
--- NOTE | 2021-12-19 11:16 | CASEMGMT ---
Social Work SW received referral from [facility] for advance directives and financial concerns. SW met with pt and dgt in room and introduced self and role of SW. SW discussed advance directives with pt and assisted in completing a living will and a health care POA naming her daughter Elizabeth Dow as HCPOA. Copy placed on chart and original given to patient. SW also spoke with pt regarding financial concerns. Discussed Medicaid, which pt states she does not qualify for. Pt given information on prescription assistance programs, [employer] and [facility] program. Pt is appreciative of information. VIC Calix
--- NOTE | 2021-12-19 11:48 | CASEMGMT ---
MARIA DEL CARMEN MARIE NOTE: Pt being discharged home. Per MORIAH Ram, pt had run out of Eliquis and she has e-scribed refill to [facility] retail pharmacy for pt to get prior to going home. Call placed to Ce @ [facility] retail pharmacy. Per Ce, cost of Eliquis is $9.85. Metoprolol and ASA has also been prescribed. Total cost for all 3 rx's is $14.47. RN CM to room. Pt and daughter, who is at bedside, made aware of total cost and they state this is affordable. Daughter states will go to pharmacy to pick this up prior to pt going home. Educated pt and daughter on importance of not missing doses of Eliquis and to take medications as prescribed. They voice understanding. Pt and dtr both deny having any further discharge planning needs or concerns. Dalia BOLANOSN MARIA DEL CARMEN CM
== END 2021-12-19 12:32 | disposition home or self-care (01) | DRG 310 ==
LOC: ED 15:46 → PCU 16:53
PROVIDERS: Admitting Provider Internal Medicine; Emergency Provider Emergency Medicine; PCP Family Medicine; Visit Provider Internal Medicine
DX: I48.0 Paroxysmal atrial fibrillation (principal); J44.9 Chronic obstructive pulmonary disease, unspecified; I27.21 Secondary pulmonary arterial hypertension; I48.92 Unspecified atrial flutter; G25.3 Myoclonus; I25.10 Atherosclerotic heart disease of native coronary artery without angina pectoris; I10 Essential (primary) hypertension; F17.200 Nicotine dependence, unspecified, uncomplicated; E78.5 Hyperlipidemia, unspecified; K58.9 Irritable bowel syndrome, unspecified; K21.9 Gastro-esophageal reflux disease without esophagitis; Z79.01 Long term (current) use of anticoagulants; Z87.19 Personal history of other diseases of the digestive system; Z79.899 Other long term (current) drug therapy; Z95.5 Presence of coronary angioplasty implant and graft
CPT/HCPCS: 36415; 71045; 80048; 80053; 83735; 84100; 84443; 84484; 85025; 93005; 94640; 96365; 96375; 96376; 97802; 99218; 99285; 99406; J7030; A4216; G0378

== ENCOUNTER 2022-02-06 17:35 | Observation (INO) | payer MEDICARE, SELFPAY ==
[2022-02-06] VITALS (15 sets, daily range): BP systolic 91–141; BP diastolic 60–110; PULSE 109–154; RESP 16–21; TEMP 36.5–36.7; O2SAT 93–99; BMI 23.9; BMI 24.7
--- NOTE | 2022-02-06 18:07 | EKG12_ITS ---
Test Reason : PALPS AFIB Blood Pressure : / mmHG Vent. Rate : 151 BPM Atrial Rate : 150 BPM P-R Int : 000 ms QRS Dur : 078 ms QT Int : 324 ms P-R-T Axes : 000 038 217 degrees QTc Int : 513 ms Atrial fibrillation Low voltage QRS ST & T wave abnormality, consider inferior ischemia ST & T wave abnormality, consider anterior ischemia Abnormal ECG Confirmed by APRIL RIVERA MD ([id number]), story editor JULIUS DE LA ROSA ([id number]) on 02/07/2022 10:24:15 AM Referred By: VARUN Confirmed By:APRIL RIVERA MD
[2022-02-06] MEDS: 0.9% Normal Saline 1,000 ML 1000 ML IV (18:12)
[2022-02-06] MEDS: Metoprolol Tartrate 5 MG/5 ML Vial IV ×3 (18:20→19:02)
--- NOTE | 2022-02-06 18:22 | RAD_ITS ---
STUDY: X-RAY CHEST REASON FOR EXAM: Female, 71 years old. chest pain TECHNIQUE: AP portable COMPARISON: 12/18/2021 FINDINGS: Chronic interstitial changes of the right base.. Mild left lower lobe atelectasis or infiltrate. Heart is enlarged. Normal mediastinum and sheron. Normal visualized pulmonary arteries. Tortuous mildly calcified aortic arch and descending thoracic aorta. Dorsal spine demonstrates scoliosis and degenerative change.. Normal visualized ribs, clavicles, and shoulders. There is no demonstrated abnormality of the visualized soft tissue structures of the upper abdomen. RAD/Chest 1 View (Portable) IMPRESSION: ASHD. Mild left lower lobe atelectasis or infiltrate Electronically Signed: Jose June MD at 18:38 EDT ,
[2022-02-06 18:25] LABS: Absolute Lymphocyte Count 0.69 X10^3/uL (0.83-4.51); Absolute Neutrophil Count 9.7 X10^3/uL (2.0-7.7); Basophil# 0.03 X10^3/uL; Basophil% 0.3 % (0-1); Eosinophil# 0.25 X10^3/uL; Eosinophils% 2.3 % (0-5); Hematocrit 36.5 % (37-47); Hemoglobin 12.1 g/dL (12.0-15.0); Lymphocyte # 0.69 X10^3/ul (0.83-4.51); Lymphocyte % 6.2 % (19-41); Mean Corp Hgb Conc 33.2 g/dL (32-36); Mean Corpuscular Hgb 31.9 pg (27.0-32.0); Mean Corpuscular Volume 96.3 fL (81-99); Mean Platelet Vol. 10.6 fl (6.2-12.0); Monocyte# 0.39 X10^3/uL; Monocyte% 3.5 % (0-10); NRBC Flagged by Analyzer 0 % (0-5); Neutrophil # 9.67 X10^3/uL (2.7-7.7); Neutrophil % 87.2 % (47-70); Platelet Count 250 K/mm3 (150-450); RBC Distribution Width SD 46.5 fl (35.1-43.9); Red Blood Count 3.79 M/mm3 (4.2-5.4); White Blood Count 11.1 K/mm3 (4.4-11.0)
--- NOTE | 2022-02-06 18:28 | EDS_ITS ---
HPI <MATT Rich - Last Filed: 02/06/22 19:34> History of Present Illness Chief Complaint: Palpitations Narrative Narrative: 71-year-old female history of COPD, atrial fibrillation on Eliquis presents to the emergency department with a feeling of dizziness, chest palpitations. Patient had ablation at [facility] 3 days ago, she states that she felt well for 2 days, today around noon, she started feeling dizzy, feeling her heart rate flutter and is here for evaluation. Patient denies any chest pain, patient denies any nausea or vomiting. states to have a cough however that has been for the last 3 weeks. Denies any fever chills PFSH <MATT Rich - Last Filed: 02/06/22 19:34> PFSH Medical History Anemia Atherosclerotic heart disease of [place] coronary artery without angina pectoris Atrial fibrillation with RVR Complete AV block due to AV corrina ablation COPD (chronic obstructive pulmonary disease) COPD (chronic obstructive pulmonary disease) Depression Essential hypertension GERD (gastroesophageal reflux disease) Hyperlipidemia Irritable bowel Left atrial enlargement Myoclonic disorder Paroxysmal atrial fibrillation with RVR Secondary pulmonary hypertension Sigmoid diverticulitis Thyroid nodule Tobacco abuse Home Medications tramadol 1 tab PO BID PRN 04/19/19 [History Last Taken 12/15/21] lisinopril 20 mg PO DAILY 01/08/21 [History Last Taken 12/18/21] budesonide-formoterol HFA 160 mcg-4.5 mcg/actuation aerosol inhaler 2 puff INHALATION BID 02/05/21 [History Last Taken 12/14/21] albuterol sulfate 90 mcg/actuation aerosol inhaler 2 puff INHALATION Q4H PRN PRN #8.5 g 08/06/21 [Rx Last Taken 12/16/21] hydrochlorothiazide 25 mg tablet 25 mg PO DAILY #90 tab 08/06/21 [Rx Last Taken 12/18/21] dronedarone 400 mg tablet 400 mg PO BID #60 tab 08/14/21 [Rx Last Taken Unknown] clonazepam 2 mg PO BID PRN 12/18/21 [History Last Taken 12/16/21] apixaban 5 mg tablet 5 mg PO BID #180 tab 01/03/22 [Rx Last Taken Unknown] aspirin 81 mg capsule 81 mg PO DAILY #90 cap 01/03/22 [Rx Last Taken Unknown] metoprolol tartrate 100 mg tablet 100 mg PO BID 30 Days #180 tab 01/03/22 [Rx Last Taken Unknown] Allergy/AdvReac Type Severity Reaction Status Date / Time levofloxacin [From Levaquin] Allergy Rash Verified 02/06/22 17:41 phenytoin [From Dilantin] Allergy Swelling Verified 02/06/22 17:41 sertraline AdvReac Intermediate anxiety Verified 02/06/22 17:41 Family History Mother Hypertension CVA (cerebral vascular accident) CAD (coronary artery disease) Father Colon cancer Leukemia Throat cancer Surgical History History of breast lump removal History of coronary artery stent placement (05/08/18) History of left heart catheterization (05/08/15) History of lobectomy of thyroid History of thyroidectomy History of total abdominal hysterectomy Social History housing: house number of children: 1 Smoking Status: Heavy Smoker (>10/day) Tobacco: How many years used: 50 alcohol intake: never substance use type: does not use ROS <MATT Rich - Last Filed: 02/06/22 19:34> ROS ED ROS Narrative Constitutional: Negative for fever, chills, weight loss. Positive generalized weakness, dizziness Eyes: Negative for vision loss, vision change, double vision ENT: Negative for any sore throat, ear pain, congestion Cardiovascular: Negative for any chest pain, tightness., Positive for palpitati on Respiratory: Negative for any sputum production, hemoptysis, dyspnea, dyspnea on exertion, orthopnea. Positive for cough Gastrointestinal: Negative for any abdominal pain, nausea, vomiting, diarrhea, constipation, blood in stool, blood in vomit : Negative for any urinary frequency, dysuria, retention, blood in urine Muscle skeletal: Negative for any muscle joint pain, stiffness, myalgias, ar thralgias, neck pain, back pain Neurological: Negative for any headache, syncope, numbness or tingling .positive for dizziness Skin: Negative for any rashes, lumps, itching, abrasions, lacerations Psychiatric: Negative for any depression, anxiety, stress, suicidal ideation, homicidal ideation Hematologic: Negative for any easy bruising, excessive bruising, easy bleeding Allergies: Negative for any eczema, hives, rash EXAM <Juan C AllenAMTT carreon - Last Filed: 02/06/22 19:34> Physical Exam Narrative Exam Narrative: Vital signs reviewed. Patient is in atrial fibrillation with a rate of 1 50-1 80. Patient's blood pressure is in the mid to low 90s systolic. Patient does have a pale appearance. HEET: Head normocephalic atraumatic, TMs clear bilaterally. Posterior pharynx is clear, moist mucous membranes. Nares clear bilaterally. Neck: Supple with no lymphadenopathy or tenderness. No signs of meningismus, negative jolt sign. Cardiac: atrial fibrillation with RVR no murmurs gallops or rubs, equal peripheral pulses bilaterally. Respiratory: Lungs clear to auscultation bilaterally. No chest tenderness. Abdomen: Soft, nontender, nondistended. No abdominal bruit or pulsatile masses. No hepatosplenomegaly Extremities: No peripheral edema, no signs of gross trauma or deformity. Active full range of motion of all extremities. Neuro: Cranial nerves II through XII intact, no focal neurological deficits. Skin: Clean dry and intact with no rash, purpura, petechiae, vesicles or pustules. Backs/flank: No CVA tenderness, no midline spinal tenderness, no deformity. Psych: Normal mood and affect. No SI, HI or acute psychosis. Const Vital Signs: 02/06/22 17:36 02/06/22 18:04 02/06/22 18:35 Temperature 97.8 F Temperature Source Temporal Pulse Rate 118 H 150 H 130 H Respiratory Rate 17 18 16 Respiratory Pattern Normal Blood Pressure 93/63 96/71 108/60 Blood Pressure Mean 73 79 76 Blood Pressure Source Pulse Ox 98 98 97 Oxygen Delivery Method Room Air 02/06/22 18:45 02/06/22 19:11 02/06/22 20:03 Temperature Temperature Source Pulse Rate 127 H 127 H 137 H Respiratory Rate 20 H 16 21 H Respiratory Pattern Blood Pressure 109/68 109/74 91/78 Blood Pressure Mean 81 85 82 Blood Pressure Source Monitor Pulse Ox 99 98 95 Oxygen Delivery Method Nasal Cannula 02/06/22 20:17 Temperature Temperature Source Pulse Rate 111 H Respiratory Rate 18 Respiratory Pattern Blood Pressure 102/72 Blood Pressure Mean 82 Blood Pressure Source Pulse Ox 95 Oxygen Delivery Method Room Air Positive well nourished and well developed General Appearance ED: well developed <Logan Morel MD - Last Filed: 02/06/22 20:23> Physical Exam Const Vital Signs: 02/06/22 17:36 02/06/22 18:04 02/06/22 18:35 Temperature 97.8 F Temperature Source Temporal Pulse Rate 118 H 150 H 130 H Respiratory Rate 17 18 16 Respiratory Pattern Normal Blood Pressure 93/63 96/71 108/60 Blood Pressure Mean 73 79 76 Blood Pressure Source Pulse Ox 98 98 97 Oxygen Delivery Method Room Air 02/06/22 18:45 02/06/22 19:11 02/06/22 20:03 Temperature Temperature Source Pulse Rate 127 H 127 H 137 H Respiratory Rate 20 H 16 21 H Respiratory Pattern Blood Pressure 109/68 109/74 91/78 Blood Pressure Mean 81 85 82 Blood Pressure Source Monitor Pulse Ox 99 98 95 Oxygen Delivery Method Nasal Cannula 02/06/22 20:17 Temperature Temperature Source Pulse Rate 111 H Respiratory Rate 18 Respiratory Pattern Blood Pressure 102/72 Blood Pressure Mean 82 Blood Pressure Source Pulse Ox 95 Oxygen Delivery Method Room Air MDM <MATT Rich - Last Filed: 02/06/22 19:34> [facility] Narrative Medical decision making narrative: On arrival, patient did appear pale, patient was dizzy, atrial fibrillation with rapid ventricular response, hypotension with a blood pressure in the 90s systolic. Patient denied any actual pain but states he felt weak and dizzy and lightheaded. Patient did receive a full cardiac work-up. Patient was given 1 L of normal saline, 3 doses of IV metoprolol. Patient's heart rate remains well 120s, patient's blood pressure 96/67. I did speak with Dr. Gaytan cardiology, he recommended the patient be started on amiodarone, bolus and drip. This will decrease the patient's heart rate without affecting the patient's blood pressure. Patient did have an elevated troponin greater than 1000, I did speak with Dr. Gaytan regarding this, this is a normal figure after a cardiac ablation. Lab Data Labs: Laboratory Results - last 24 hr 02/06/22 02/06/2222 17:52 17:52 19:55 WBC 11.1 H RBC 3.79 L Hgb 12.1 Hct 36.5 L MCV 96.3 MCH 31.9 MCHC 33.2 RDW Std Deviation 46.5 H RDW Coeff of Claudia 13.0 Plt Count 250 MPV 10.6 Immature Gran % (Auto) 0.500 Neut % (Auto) 87.2 H Lymph % (Auto) 6.2 L [place] % (Auto) 3.5 Eos % (Auto) 2.3 Baso % (Auto) 0.3 Absolute Neuts (auto) 9.7 H Absolute Lymphs (auto) 0.69 L Nucleated RBC % 0 Sodium 139 Potassium 3.8 Chloride 105 Carbon Dioxide 25.0 Anion Gap 9 BUN 12 Creatinine 0.90 Estim Creat Clear Calc 48.11 Est GFR (MDRD) Af Amer 80 Est GFR (MDRD) Non-Af 66 BUN/Creatinine Ratio 13.3 Glucose 190 H Calcium 9.0 Magnesium 2.1 Troponin I High Sens 1619 H* Radiography Diagnostic Testing: Clinical Impression(s) from Imaging Studies Chest X-Ray 02/06/22 18:22 IMPRESSION: ASHD. Mild left lower lobe atelectasis or infiltrate Electronically Signed: Jose June MD at 18:38 EDT , EKG Atrial fibrillation,: Comments: Atrial fibrillation, rate 151 bpm, QRS duration 78 ms, no acute ST elevation. <Logan Morel MD - Last Filed: 02/06/22 20:23> [facility] Narrative Medical decision making narrative: Dr. Morel: EKG demonstrates atrial fibrillation with rapid ventricular response at 151 bpm. Her laboratory work shows WBC of 11.1, hemoglobin stable at 12.1. Normal platelet count of 250. Electrolyte panel is grossly unremarkable. Magnesium normal at 2.1. Although her high-sensitivity troponin is elevated at 1619, in discussion with Dr. Steward, he agrees that this is because she is status post ablation on Thursday. Patient was discussed with the hospitalist, Dr. Vergara. As she is on an amiodarone drip, she will be admitted to the PCU stepdown in stable condition. Disposition is admitted. ATTENDING NOTE: Dr. Morel: The patient was seen in conjunction with the PA-C/nurse practitioner. I performed a history and physical, and agree with the management of this patient. I agree with noted documentation and plan. I discussed the plan of care and final disposition with the physician associate/nurse practitioner. See note above. Lab Data Attestation: I reviewed the patient's lab results. Labs: Laboratory Results - last 24 hr 02/06/22 02/06/22 02/06/22 17:52 17:52 19:55 WBC 11.1 H RBC 3.79 L Hgb 12.1 Hct 36.5 L MCV 96.3 MCH 31.9 MCHC 33.2 RDW Std Deviation 46.5 H RDW Coeff of Claudia 13.0 Plt Count 250 MPV 10.6 Immature Gran % (Auto) 0.500 Neut % (Auto) 87.2 H Lymph % (Auto) 6.2 L [place] % (Auto) 3.5 Eos % (Auto) 2.3 Baso % (Auto) 0.3 Absolute Neuts (auto) 9.7 H Absolute Lymphs (auto) 0.69 L Nucleated RBC % 0 Sodium 139 Potassium 3.8 Chloride 105 Carbon Dioxide 25.0 Anion Gap 9 BUN 12 Creatinine 0.90 Estim Creat Clear Calc 48.11 Est GFR (MDRD) Af Amer 80 Est GFR (MDRD) Non-Af 66 BUN/Creatinine Ratio 13.3 Glucose 190 H Calcium 9.0 Magnesium 2.1 Troponin I High Sens 1619 H* Radiography Diagnostic Testing: Clinical Impression(s) from Imaging Studies Chest X-Ray 02/06/22 18:22 IMPRESSION: ASHD. Mild left lower lobe atelectasis or infiltrate Electronically Signed: Jose June MD at 18:38 EDT , Discharge Plan Dx/Rx/DC Orders Clinical Impression: Atrial fibrillation with RVR, Hypotension, Dizziness Disposition Disposition: [facility]
[2022-02-06 19:17] LABS: Anion Gap 9 (5-15); BUN 12 mg/dL (7-18); BUN/Creat Ratio 13.3 RATIO (10-20); Chloride 105 mmol/L (98-107); EST Glomerular Filtration Rate 66 mL/min (>60); Est Glom Filt Rate - Afr Amer 80 mL/min (>60); Estimated Creatinine Clearance 48.11 ml/min; Glucose 190 mg/dL (74-106); Potassium 3.8 mmol/L (3.5-5.1); Sodium Level 139 mmol/L (136-145); Troponin-I HS 1619 pg/mL (3.0-54.0)
--- NOTE | 2022-02-06 19:54 | PCM.HP.STD ---
[facility] Date of Admission: 02/06/22 [facility] Narrative ANTON MOISE, is a 71 F with a significant history of cardiac arrest status post defibrillation (12/18/2021); atrial fibrillation status post ablation at [facility] on 02/03/2022 who presents to emergency department with palpitations. Associated with her symptoms is Vertigo; fatigue; nausea and vomiting; and headache. She has a productive cough but she swallows her sputum. At the emergency department patient's blood pressures were soft in the range of 90s to 100s. Patient received metoprolol IV. Her rate was still not controlled. Cardiology was notified and recommendations were the patient be given amiodarone bolus and drip. Although patient was recently at [facility] for ablation as she does not want to go back to [facility]. Of note patient has a chronic history of myoclonic jerks. [facility] Medical History Anemia Atherosclerotic heart disease of [place] coronary artery without angina pectoris Atrial fibrillation with RVR Complete AV block due to AV corrina ablation COPD (chronic obstructive pulmonary disease) COPD (chronic obstructive pulmonary disease) Depression Essential hypertension GERD (gastroesophageal reflux disease) Hyperlipidemia Irritable bowel Left atrial enlargement Myoclonic disorder Paroxysmal atrial fibrillation with RVR Secondary pulmonary hypertension Sigmoid diverticulitis Thyroid nodule Tobacco abuse Home Medications tramadol 1 tab PO BID PRN 04/19/19 [History Last Taken 12/15/21] lisinopril 20 mg PO DAILY 01/08/21 [History Last Taken 12/18/21] budesonide-formoterol HFA 160 mcg-4.5 mcg/actuation aerosol inhaler 2 puff INHALATION BID 02/05/21 [History Last Taken 12/14/21] albuterol sulfate 90 mcg/actuation aerosol inhaler 2 puff INHALATION Q4H PRN PRN #8.5 g 08/06/21 [Rx Last Taken 12/16/21] hydrochlorothiazide 25 mg tablet 25 mg PO DAILY #90 tab 08/06/21 [Rx Last Taken 12/18/21] dronedarone 400 mg tablet 400 mg PO BID #60 tab 08/14/21 [Rx Last Taken Unknown] clonazepam 2 mg PO BID PRN 12/18/21 [History Last Taken 12/16/21] apixaban 5 mg tablet 5 mg PO BID #180 tab 01/03/22 [Rx Last Taken Unknown] aspirin 81 mg capsule 81 mg PO DAILY #90 cap 01/03/22 [Rx Last Taken Unknown] metoprolol tartrate 100 mg tablet 100 mg PO BID 30 Days #180 tab 01/03/22 [Rx Last Taken Unknown] Allergy/AdvReac Type Severity Reaction Status Date / Time levofloxacin [From Levaquin] Allergy Rash Verified 02/06/22 17:41 phenytoin [From Dilantin] Allergy Swelling Verified 02/06/22 17:41 sertraline AdvReac Intermediate anxiety Verified 02/06/22 17:41 Family History Mother Hypertension CVA (cerebral vascular accident) CAD (coronary artery disease) Father Colon cancer Leukemia Throat cancer Surgical History History of breast lump removal History of coronary artery stent placement (05/08/18) History of left heart catheterization (05/08/15) History of lobectomy of thyroid History of thyroidectomy History of total abdominal hysterectomy Social History housing: house number of children: 1 Smoking Status: Heavy Smoker (>10/day) Tobacco: How many years used: 50 alcohol intake: never substance use type: does not use ROS ROS Narrative Pertinent positives and pertinent negatives as noted in HPI. All other systems were reviewed and are negative. Vital Signs Vital Signs Vital Signs: 02/06/22 17:36 02/06/22 18:04 02/06/22 18:35 Temperature 97.8 F Temperature Source Temporal Pulse Rate 118 H 150 H 130 H Respiratory Rate 17 18 16 Respiratory Pattern Normal Blood Pressure 93/63 96/71 108/60 Blood Pressure Mean 73 79 76 Pulse Ox 98 98 97 Oxygen Delivery Method Room Air 02/06/22 18:45 02/06/22 19:11 Temperature Temperature Source Pulse Rate 127 H 127 H Respiratory Rate 20 H 16 Respiratory Pattern Blood Pressure 109/68 109/74 Blood Pressure Mean 81 85 Pulse Ox 99 98 Oxygen Delivery Method Nasal Cannula Weight Weight: 61.235 kg Body Mass Index (BMI) 23.9 Physical Exam Narrative Physical exam: General: Well-nourished, well-developed. Head: Normocephalic, atraumatic, no tenderness Eyes: Vision is grossly intact. EOMI ENT, no trauma, moist mucous membranes, no rhinorrhea Neck: Nontender, full range of motion, no spinal tenderness, deformities, step-off CVS: Tachycardia. Irregularly irregular rate and rhythm. S1-S2 present. No murmur, gallop or rub. Respiratory : clear to auscultation bilaterally, chest wall nontender, no wheezing Abdomen: Soft, nontender, nondistended, normal bowel sounds, no masses : Deferred Back: Nontender, no CVA tenderness, no midline spinal tenderness, deformities, step-offs Extremities: Nontender full range of motion, no trauma Skin: Normal color, no trauma, abrasions Neuro: Alert, oriented, cranial nerves II through XII grossly intact. Patient with myoclonic jerks. Psychiatry: Depressed affect Results Lab / Micro Data Result Diagrams: 02/06/22 17:52 02/06/22 17:52 Labs: Laboratory Results - last 24 hr 02/06/22 17:52: WBC 11.1 H, RBC 3.79 L, Hgb 12.1, Hct 36.5 L, MCV 96.3, MCH 31.9, MCHC 33.2, RDW Std Deviation 46.5 H, RDW Coeff of Claudia 13.0, Plt Count 250, MPV 10.6, Immature Gran % (Auto) 0.500, Neut % (Auto) 87.2 H, Lymph % (Auto) 6.2 L, [place] % (Auto) 3.5, Eos % (Auto) 2.3, Baso % (Auto) 0.3, Absolute Neuts (auto) 9.7 H, Absolute Lymphs (auto) 0.69 L, Nucleated RBC % 0 02/06/22 17:52: Sodium 139, Potassium 3.8, Chloride 105, Carbon Dioxide 25.0, Anion Gap 9, BUN 12, Creatinine 0.90, Estim Creat Clear Calc 48.11, Est GFR (MDRD) Af Amer 80, Est GFR (MDRD) Non-Af 66, BUN/Creatinine Ratio 13.3, Glucose 190 H, Calcium 9.0, Troponin I High Sens 1619 H* Radiology Impression Chest X-Ray 02/06/22 18:22 IMPRESSION: ASHD. Mild left lower lobe atelectasis or infiltrate Electronically Signed: Jose Jnue MD at 18:38 EDT Reading Location ID and State: [facility] / [place] , Service support , Assessment & Plan Assessment/Plan (1) Atrial fibrillation with RVR: (2) Elevated troponin: PLAN: A. fib with RVR EKG was personally interpreted. EKG with A. fib with RVR. Place on PCU on stepdown. Status post metoprolol IV and amiodarone bolus at emergency department. Amiodarone drip ordered. Home Dronedarone held. Eliquis continued. Potassium level at 3.8. Supplements potassium. Home urine p.o. held. Check magnesium. Trend BMP Cardiology consult Elevated troponin Likely secondary to recent ablation; and atrial fibrillation. Rule out NSTEMI. Eliquis continued. Aspirin continued. Cardiology consult. History of hypertension Patient with soft blood pressures at emergency department. Hydrochlorothiazide, lisinopril and metoprolol p.o. held. Trend blood pressure Atelectasis Chest x-ray was independently interpreted and I agree with radiology interpretation. Incentive spirometer ordered. Cough medicine ordered. Tobacco abuse Counseled Nicotine patch prescribed. DVT prophylaxis Not indicated since patient is on Eliquis and Eliquis has been continued. Charges/Coding Visit Charges Inpatient E&M: 61522 Init Hosp L3
[2022-02-06 20:11] LABS: Magnesium 2.1 mg/dL (1.6-2.6)
--- NOTE | 2022-02-06 20:13 | NURSING ---
bp in 90s. asked dr mayes if ok to continue amiodarone bolus. md said continue with bolus
[2022-02-06] MEDS: Amiodarone 360 MG in Dextrose 5% Viaflo Bag 192.8 ML 33.3 MG CONT INF (20:22)
[2022-02-06] MEDS: Potassium Chloride Oral Tablet 20 MEQ PO (20:29)
[2022-02-06] MEDS: APIXABAN 5 MG TABLET PO (22:38)
[2022-02-06 22:52] LABS: Troponin-I HS 1251 pg/mL (3.0-54.0)
[2022-02-07] VITALS (12 sets, daily range): BP systolic 107–153; BP diastolic 69–83; PULSE 62–124; RESP 16–22; TEMP 36.5–36.8; O2SAT 93–98
--- NOTE | 2022-02-07 01:28 | NURSING ---
This RN attempted to call pt's daughter Jacqueline ([phone]), no answered, left a voicemail.
--- NOTE | 2022-02-07 01:50 | NURSING ---
Pt became very agitated with attempted lab draw and IV stick. Pt refused lab draw and IV and stated I'll slap anyone who comes in here to jab me. Dr. Vergara notified.
--- NOTE | 2022-02-07 02:55 | EKG12_ITS ---
Test Reason : Blood Pressure : / mmHG Vent. Rate : 067 BPM Atrial Rate : 067 BPM P-R Int : 154 ms QRS Dur : 084 ms QT Int : 450 ms P-R-T Axes : 037 045 060 degrees QTc Int : 475 ms Normal sinus rhythm Nonspecific ST and T wave abnormality Abnormal ECG Confirmed by MIGUEL GRIMALDO, APRIL ([id number]), slot editor JULIUS DE LA ROSA ([id number]) on 02/11/2022 1:04:08 PM Referred By: Confirmed By:APRIL RIVERA MD
--- NOTE | 2022-02-07 07:25 | PCM.PN.HOSP ---
Subjective Subjective Follow-up with Colton newton with RVR: Patient was seen and examined. She denied any chest pain or dizziness. She was admitted last night with Colton newton with RVR and combated to normal sinus rhythm. Amiodarone drip is still running. Objective Data Objective Data Vital Signs: Vital Signs Temp Pulse Resp BP Pulse Ox 98.2 F 64 19 H 135/69 H 94 02/07/22 01:00 02/07/22 06:00 02/07/22 06:00 02/07/22 06:00 02/07/22 06:00 Oxygen Delivery Method Room Air Weight: 67.8 kg Body Mass Index (BMI) 24.7 Intake & Output: Intake and Output for Last 24 Hours 02/05/22 02/06/22 02/07/22 23:59 23:59 23:59 Intake Total 1207.34 / 1207.34 270.21 / 270.21 Output Total 200 / 200 Balance 1207.34 / 1207.34 70.21 / 70.21 Lab / Micro Data Result Diagrams: 02/06/22 17:52 02/06/22 17:52 Labs: Laboratory Results - last 24 hr 02/06/22 17:52: WBC 11.1 H, RBC 3.79 L, Hgb 12.1, Hct 36.5 L, MCV 96.3, MCH 31.9, MCHC 33.2, RDW Std Deviation 46.5 H, RDW Coeff of Claudia 13.0, Plt Count 250, MPV 10.6, Immature Gran % (Auto) 0.500, Neut % (Auto) 87.2 H, Lymph % (Auto) 6.2 L, [place] % (Auto) 3.5, Eos % (Auto) 2.3, Baso % (Auto) 0.3, Absolute Neuts (auto) 9.7 H, Absolute Lymphs (auto) 0.69 L, Nucleated RBC % 0 02/06/22 17:52: Sodium 139, Potassium 3.8, Chloride 105, Carbon Dioxide 25.0, Anion Gap 9, BUN 12, Creatinine 0.90, Estim Creat Clear Calc 48.11, Est GFR (MDRD) Af Amer 80, Est GFR (MDRD) Non-Af 66, BUN/Creatinine Ratio 13.3, Glucose 190 H, Calcium 9.0, Troponin I High Sens 1619 H* 02/06/22 19:55: Magnesium 2.1 02/06/22 22:19: Troponin I High Sens 1251 H* Radiography Diagnostic Testing: Radiology Impression Chest X-Ray 02/06/22 18:22 IMPRESSION: ASHD. Mild left lower lobe atelectasis or infiltrate Electronically Signed: Jose June MD at 18:38 EDT Reading Location ID and State: [facility] / [place] , Service support , Physical Exam Narrative Physical exam: General: Alert, Oriented x3, Cooperative, No apparent distress HEENT: Atraumatic Oral: Moist Mucosa Neck: Supple Lungs: Clear to auscultation Cardiovascular: HS I+II, regular, no murmurs Abdomen: Bowel Sounds Present, Soft, Non Tender Extremities: No edema Skin: No rashes, No breakdown Neurological: Grossly intact, myoclonic jerks Psych/Mental Status: Appropriate Assessment & Plan Assessment/Plan (1) Atrial fibrillation with RVR: (2) Elevated troponin: PLAN: 1. A. fib with RVR, now in normal sinus rhythm Status post ablation in [facility] Potassium is 3.8, magnesium is 2.1 Managed on IV amiodarone;we will switch of amiodarone Continue on metoprolol, dronedarone and Eliquis 2. Elevated troponin Secondary to recent ablation/A. fib with RVR Cardiology consulted, Eliquis and aspirin continued 2D echo pending 3. Hypertension, slightly uncontrolled Continue on hydrochlorothiazide and lisinopril as well as metoprolol 4.Abnormal chest x-ray; atelectasis seen on chest x-ray, Encourage use of with incentive spirometer 5. Nicotine dependence, encouraged to quit 6. DVT PPx- on Eliquis Charges/Coding Visit Charges Inpatient E&M: 11095 Subs Hosp L2
--- NOTE | 2022-02-07 08:34 | ECHOD_ITS ---
Reason For Study: ATRIAL FIB-FLUTTER Procedure This was a 2D Doppler, Color Flow transthoracic echocardiogram. Exam performed in department. Left Ventricle Normal left ventricle. The estimated ejection fraction is 55-60 %. Right Ventricle Normal right ventricle. Normal systolic function. Atria The left atrium is moderately enlarged. Normal right atrium. Small secundum atrial septal defect vs. patent foramen ovale. Mitral Valve There is mild mitral annular calcification. Mild (1+) mitral valve insufficiency. Tricuspid Valve The tricuspid valve is not well visualized. Mild tricuspid valve insufficiency. Aortic Valve Severe focal aortic valve calcification. Pulmonic Valve The pulmonic valve is not well visualized. Great Vessels Normal aortic root. Pericardium/Pleural No pericardial effusion. MMode/2D Measurements & Calculations RVDd: 3.9 cm LVOT diam: 3.5 cm LAV(MOD-bp): 98.6 ml LVOT area: 9.5 cm2 LAV(MOD-bp) Indexed: 56.5 ml/m2 LAV(MOD-sp2): 95.7 ml LAV(MOD-sp4): 86.0 ml SV(MOD-sp4): 60.1 ml LVAd ap4: 27.2 cm2 LVAd ap2: 23.5 cm2 LVLd ap4: 7.3 cm LVLd ap2: 7.4 cm EDV(MOD-sp4): 81.9 ml EDV(MOD-sp2): 64.3 ml EDV(sp4-el): 86.3 ml EDV(sp2-el): 63.2 ml LVAs ap4: 13.0 cm2 LVAs ap2: 12.7 cm2 LVLs ap4: 6.4 cm LVLs ap2: 6.5 cm ESV(MOD-sp4): 21.9 ml ESV(MOD-sp2): 21.3 ml ESV(sp4-el): 22.4 ml ESV(sp2-el): 21.3 ml EF(MOD-sp4): 73.3 % EF(MOD-sp2): 66.9 % EF(sp4-el): 74.0 % SV(MOD-sp2): 43.0 ml SV(sp4-el): 63.9 ml LA A4 area: 25.5 cm2 LA dimension(2D): 4.5 cm RA A4 area: 17.7 cm2 Doppler Measurements & Calculations MV E max luís: 119.7 cm/sec Lat Peak E' Luís: 7.6 cm/sec Med Peak E' Luís: 5.6 cm/sec MV A max luís: 139.1 cm/sec E/E' lat: 15.7 E/E' med: 21.3 MV E/A: 0.86 Ao V2 max: 142.4 cm/sec LV V1 max: 120.2 cm/sec PA V2 max: 84.7 cm/sec Ao max P.1 mmHg LV V1 max P.8 mmHg DANNIE(V,D): 8.1 cm2 TR max luís: 383.7 cm/sec TR max P.9 mmHg ECHO/Echo Complete Interpretation Summary PT REFUSED IV FOR BUBBLE. The estimated ejection fraction is 55-60 %. Normal LV systolic function Ordering Physician: Yeimi Castrejon Performed By: Citlaly Benitez RCS
[2022-02-07] MEDS: Metoprolol Tartrate 100 MG Tablet PO (08:44)
[2022-02-07] MEDS: APIXABAN 5 MG TABLET PO (08:45)
[2022-02-07] MEDS: Aspirin 81 MG TAB.CHEW PO (08:45)
--- NOTE | 2022-02-07 09:15 | CON.PCM.CA_ITS ---
Documented by User: SMITHA Mckeon 02/07/22 11:07 Assessment & Plan Assessment/Plan (1) Atrial fibrillation with RVR: (2) Elevated troponin: (3) Atherosclerotic heart disease of [place] coronary artery without angina pectoris: PLAN: * Pt converted to SR with IV amiodarone. PAF is no unusual given her recent ablation. Feel that it is okay to continue with her Coreg and mult ag. Given her hx of CAD she is not a candidate for Flecainide or Tikosyn. She is anticoagulated with Eliquis. Do not need to make any adjustments. * Echo is pending, if echo is okay, okay to d/c home and follow up with our office as well as EP * Troponin have reminded in normal limits. She will continue with her ASA, Metoprolol and Lisinopril. HPI Consult Data Date of Consult: 02/07/22 HPI Narrative HPI Narrative: ANTON MOISE, is a 71 F who presented to [facility] emergency room yesterday for atrial fibrillation with RVR. She does have a hisory of coronary artery disease status post PCI and stent [place] RCA [place] [address] Tariq Levy, paroxysmal atrial fibrillation with cardioversion x3 in the ER June 2021, secondary pulmonary hypertension, and COPD.she was in the hospital on December 18, 2021 with atrial fibrillation for RVR. Troponin was negative. Her metoprolol was increased and she was referred to EP for further evaluation. At that time there was a question about medication compliance. She underwent an atrial fibrillation ablation at [facility] on 02/03/2022. She was given IV metoprolol in the emergency room, her rate was not controlled. She was started on an amiodarone drip along with an amiodarone bolus. This has since been discontinued. It is noted that her troponins are elevated however is felt that this is related to her recent ablation. Patient notes that she was lightheaded, had palpitations prior to her coming into the emergency room. She has not had any further chest pain or shortness of breath. She does not have any bleeding issues. She would like to go home to day. 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 corrina ablation COPD (chronic obstructive pulmonary disease) COPD (chronic obstructive pulmonary disease) Depression Essential hypertension GERD (gastroesophageal reflux disease) Hyperlipidemia Irritable bowel Left atrial enlargement Myoclonic disorder Paroxysmal atrial fibrillation with RVR Secondary pulmonary hypertension Sigmoid diverticulitis Thyroid nodule Tobacco abuse Home Medications tramadol 1 tab PO BID PRN 04/19/19 [History Last Taken 12/15/21] lisinopril 20 mg PO DAILY 01/08/21 [History Last Taken 12/18/21] budesonide-formoterol HFA 160 mcg-4.5 mcg/actuation aerosol inhaler 2 puff INHALATION BID 02/05/21 [History Last Taken 12/14/21] albuterol sulfate 90 mcg/actuation aerosol inhaler 2 puff INHALATION Q4H PRN PRN #8.5 g 08/06/21 [Rx Last Taken 12/16/21] dronedarone 400 mg tablet 400 mg PO BID #60 tab 08/14/21 [Rx Last Taken Unknown] clonazepam 2 mg PO BID PRN 12/18/21 [History Last Taken 12/16/21] apixaban 5 mg tablet 5 mg PO BID #180 tab 01/03/22 [Rx Last Taken Unknown] aspirin 81 mg capsule 81 mg PO DAILY #90 cap 01/03/22 [Rx Last Taken Unknown] metoprolol tartrate 100 mg tablet 100 mg PO BID 30 Days #180 tab 01/03/22 [Rx Last Taken Unknown] amoxicillin-pot clavulanate [Augmentin] 1 tab PO BID 7 Days #14 tab 02/07/22 [Rx Last Taken Unknown] hydrochlorothiazide 25 mg PO DAILY #30 tab 02/07/22 [Rx Last Taken Unknown] Allergy/AdvReac Type Severity Reaction Status Date / Time levofloxacin [From Levaquin] Allergy Rash Verified 02/06/22 17:41 phenytoin [From Dilantin] Allergy Swelling Verified 02/06/22 17:41 sertraline AdvReac Intermediate anxiety Verified 02/06/22 17:41 Family History Mother Hypertension CVA (cerebral vascular accident) CAD (coronary artery disease) Father Colon cancer Leukemia Throat cancer Surgical History History of breast lump removal History of coronary artery stent placement (05/08/18) History of left heart catheterization (05/08/15) History of lobectomy of thyroid History of thyroidectomy History of total abdominal hysterectomy Social History housing: house number of children: 1 Smoking Status: Heavy Smoker (>10/day) Tobacco: How many years used: 50 alcohol intake: never substance use type: does not use ROS Constitutional Constitutional: Denies fever(s) or weight loss Eyes Eyes: Reports systems reviewed and no addt'l complaints, except as documented ENT HEENT: Reports systems reviewed and no addt'l complaints, except as documented Cardiovascular Cardiovascular: Reports palpitations; Denies chest pain at rest, chest pain with activity, dyspnea at rest, dyspnea on exertion, edema or paroxysmal nocturnal dyspnea Respiratory/Chest Respiratory/Chest: Denies dyspnea on exertion, productive cough, shortness of breath at rest or shortness of breath with exertion Gastrointestinal Gastrointestinal: Denies change in bowel habits, nausea, vomiting or weight changes Genitourinary Genitourinary: Denies difficulty urinating Musculoskeletal Musculoskeletal: Denies joint stiffness or muscle weakness Integumentary Integumentary: Denies lesions Neurologic Neurologic: Denies dizziness or syncope Psychiatric Psychiatric: Denies anxiety Endocrine Endocrinology: Denies excessive sweating or fatigue Hematologic/Lymphatic Hematologic/Lymphatic: Denies anemia Allergic/Immunologic Allergic/Immunologic: Denies seasonal rhinorrhea Physical Exam Const alert, oriented x3, no apparent distress and healthy appearing HEENT normocephalic, head/scalp atraumatic, hearing grossly normal bilaterally, external ears normal, external nose normal and moist oral mucous membranes Eyes PERRL, EOMs intact bilaterally, conjunctivae normal and no scleral icterus Neck no lymphadenopathy, supple and no JVD Resp normal respiratory effort and clear to auscultation bilaterally Cardio regular rate, regular rhythm, S1 normal heart sound, S2 normal heart sound, no murmurs, no rub, no gallops, no clicks, no JVD and peripheral pulses 2+ throughout GI normal to inspection, nondistended, normoactive bowel sounds, soft to palpation, non-tender and non-distended Extremity normal to inspection, normal capillary refill, no clubbing, cyanosis or edema and no pedal edema Neuro oriented x3, CN's II-XII intact bilaterally, moves all extremities and no focal motor deficits Psych cooperative and affect normal Risk Stratification Risk Stratification Applicable: No Charges/Coding Visit Charges Office Visits / Consults: 54869 IP Consult L3 Objective Data Vital Signs: Vital Signs Temp Pulse Resp BP Pulse Ox 97.7 F L 74 17 153/76 H 97 02/07/22 08:00 02/07/22 08:44 02/07/22 08:00 02/07/22 08:00 02/07/22 08:00 Oxygen Delivery Method Room Air Weight: 149 lb 7.574 oz Body Mass Index (BMI) 24.7 Intake & Output: Intake and Output for Last 24 Hours 02/05/22 02/06/22 02/07/22 23:59 23:59 23:59 Intake Total 1207.34 / 1207.34 316.97 / 316.97 Output Total 200 / 200 Balance 1207.34 / 1207.34 116.97 / 116.97 Lab / Micro Data Result Diagrams: 02/06/22 17:52 02/06/22 17:52 Labs: Laboratory Results - last 24 hr 02/06/22 17:52: WBC 11.1 H, RBC 3.79 L, Hgb 12.1, Hct 36.5 L, MCV 96.3, MCH 31.9, MCHC 33.2, RDW Std Deviation 46.5 H, RDW Coeff of Claudia 13.0, Plt Count 250, MPV 10.6, Immature Gran % (Auto) 0.500, Neut % (Auto) 87.2 H, Lymph % (Auto) 6.2 L, Boyd % (Auto) 3.5, Eos % (Auto) 2.3, Baso % (Auto) 0.3, Absolute Neuts (auto) 9.7 H, Absolute Lymphs (auto) 0.69 L, Nucleated RBC % 0 02/06/22 17:52: Sodium 139, Potassium 3.8, Chloride 105, Carbon Dioxide 25.0, Anion Gap 9, BUN 12, Creatinine 0.90, Estim Creat Clear Calc 48.11, Est GFR (MDRD) Af Amer 80, Est GFR (MDRD) Non-Af 66, BUN/Creatinine Ratio 13.3, Glucose 190 H, Calcium 9.0, Troponin I High Sens 1619 H* 02/06/22 19:55: Magnesium 2.1 02/06/22 22:19: Troponin I High Sens 1251 H* Cardiology Labs/Tests 02/06/22 17:52: WBC 11.1 H, RBC 3.79 L, Hgb 12.1, Hct 36.5 L, MCV 96.3, MCH 31.9, MCHC 33.2, Plt Count 250, MPV 10.6, Immature Gran % (Auto) 0.500, Neut % (Auto) 87.2 H, Lymph % (Auto) 6.2 L, Boyd % (Auto) 3.5, Eos % (Auto) 2.3, Baso % (Auto) 0.3, Absolute Neuts (auto) 9.7 H, Nucleated RBC % 0 02/06/22 17:52: Sodium 139, Potassium 3.8, Chloride 105, Carbon Dioxide 25.0, Anion Gap 9, BUN 12, Creatinine 0.90, Est GFR (MDRD) Af Amer 80, Est GFR (MDRD) Non-Af 66, BUN/Creatinine Ratio 13.3, Glucose 190 H, Calcium 9.0 02/06/22 19:55: Magnesium 2.1 Rhythm: SR ECHO from 12/2020: The study was technically difficult. Left ventricular systolic function is normal. The estimated ejection fraction is 65 %. The left atrium is moderately enlarged. Mild (1+) mitral valve insufficiency. Mild tricuspid valve insufficiency. Mild diffuse aortic valve thickening. Moderate focal aortic valve calcification. Trivial pulmonic valve insufficiency. Right ventricular systolic pressure estimated to be 54 mmHg. There is evidence of diastolic dysfunction. Radiography Diagnostic Testing: Radiology Impression Chest X-Ray 02/06/22 18:22 IMPRESSION: ASHD. Mild left lower lobe atelectasis or infiltrate Electronically Signed: Jose June MD at 18:38 EDT , Documented by User: Dr. Trev Steward MD 02/07/22 13:18 Assessment & Plan Assessment/Plan (1) Atrial fibrillation with RVR: (2) Elevated troponin: (3) Atherosclerotic heart disease of [place] coronary artery without angina pectoris: (4) Dizziness: PLAN: I independently examined this patient reviewed the current cardiac data including the current medication the EKG the lab test and also reviewed echocardiogram Patient had history of paroxysmal atrial fibrillation underwent recent ablation at [facility] Admitted with symptoms of dizziness lightheadedness palpitation and a recurrence of atrial fibrillation with rapid ventricular rate Converted to normal sinus rhythm on IV amiodarone and has been stable since then clinically and hemodynamically. The elevated cardiac biomarker high sensitive troponin is likely secondary to A. fib ablation patient is asymptomatic does not have any symptoms of chest pain And a repeat echocardiogram showed LV function preserved with no evidence of wall motion abnormality Cardiac care plan; 1. I independently set up the cardiac care plan and recommendation based on her clinical presentation Will continue on anticoagulation as well we will continue on Multaq and low-dose beta-fariba to 2. Patient to follow-up with [facility] as she has a recent A. fib ablation. 3. From cardiac standpoint stable clinically electrolytes have been checked including magnesium potassium which is within normal and the night monitor showed underlying normal sinus patient can be discharged home to follow-up with the primary [facility] leader and [facility]. HPI Consult Data Date of Consult: 02/07/22 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 corrina ablation COPD (chronic obstructive pulmonary disease) COPD (chronic obstructive pulmonary disease) Depression Essential hypertension GERD (gastroesophageal reflux disease) Hyperlipidemia Irritable bowel Left atrial enlargement Myoclonic disorder Paroxysmal atrial fibrillation with RVR Secondary pulmonary hypertension Sigmoid diverticulitis Thyroid nodule Tobacco abuse Home Medications tramadol 1 tab PO BID PRN 04/19/19 [History Last Taken 12/15/21] lisinopril 20 mg PO DAILY 01/08/21 [History Last Taken 12/18/21] budesonide-formoterol HFA 160 mcg-4.5 mcg/actuation aerosol inhaler 2 puff INHALATION BID 02/05/21 [History Last Taken 12/14/21] albuterol sulfate 90 mcg/actuation aerosol inhaler 2 puff INHALATION Q4H PRN PRN #8.5 g 08/06/21 [Rx Last Taken 12/16/21] dronedarone 400 mg tablet 400 mg PO BID #60 tab 08/14/21 [Rx Last Taken Unknown] clonazepam 2 mg PO BID PRN 12/18/21 [History Last Taken 12/16/21] apixaban 5 mg tablet 5 mg PO BID #180 tab 01/03/22 [Rx Last Taken Unknown] aspirin 81 mg capsule 81 mg PO DAILY #90 cap 01/03/22 [Rx Last Taken Unknown] metoprolol tartrate 100 mg tablet 100 mg PO BID 30 Days #180 tab 01/03/22 [Rx Last Taken Unknown] amoxicillin-pot clavulanate [Augmentin] 1 tab PO BID 7 Days #14 tab 02/07/22 [Rx Last Taken Unknown] hydrochlorothiazide 25 mg PO DAILY #30 tab 02/07/22 [Rx Last Taken Unknown] Allergy/AdvReac Type Severity Reaction Status Date / Time levofloxacin [From Levaquin] Allergy Rash Verified 02/06/22 17:41 phenytoin [From Dilantin] Allergy Swelling Verified 02/06/22 17:41 sertraline AdvReac Intermediate anxiety Verified 02/06/22 17:41 Family History Mother Hypertension CVA (cerebral vascular accident) CAD (coronary artery disease) Father Colon cancer Leukemia Throat cancer Surgical History History of breast lump removal History of coronary artery stent placement (05/08/18) History of left heart catheterization (05/08/15) History of lobectomy of thyroid History of thyroidectomy History of total abdominal hysterectomy Social History housing: house number of children: 1 Smoking Status: Heavy Smoker (>10/day) Tobacco: How many years used: 50 alcohol intake: never substance use type: does not use Lab / Micro Data Result Diagrams: 02/06/22 17:52 02/06/22 17:52
--- NOTE | 2022-02-07 09:22 | NURSING ---
Patients IV infiltrated, IV taken out and ice applied. Patient currently refusing another IV placed. Dr. Cash calzada.
--- NOTE | 2022-02-07 09:40 | CASEMGMT ---
RN CM Face to Face with patient for initial transition planning/care coordination assessment. RN CM introduced self and role at [facility]. Patient lying in bed, alert and oriented. Patient willing to participate in assessment and is able to answer all questions appropriately. Care providers, pharmacy, and demographics verified. Patient wishes to discharge home, denies need for home health at this time. Patient states she has no further needs or concerns at this time. CM to follow for discharge planning needs that may arise. 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 Patient states she is independent at home. Transportation: self, daughter DME/HHC: Patient denies DME in the home. No previous HHC or SNF. Patient denies needs at discharge. Patient states she smoke 1/2 PPD of cigarettes. Patient declined cessation resources. Disposition Plan: Patient to discharge home with family support and follow-up plans in place. Deborah GARAY, RN, CM
[2022-02-07] MEDS: Benzonatate 100 MG Capsule PO (09:41)
--- NOTE | 2022-02-07 10:41 | PCM.DC ---
Discharge Instructions Diet Discharge Diet: Low fat / Low cholesterol and 2000 mg Sodium Diet Activity Discharge Activity: Return to Normal Activity Weight Bearing Status: Weight bearing as tolerated Follow Up Care Test Results: Test results from this visit will be discussed in further detail at your follow-up appointment, if applicable. Discharge Plan Admission Admit Date/Time: 02/06/22 19:44 Primary Reason for Your Visit: A fib with RVR Attending Provider: Yeimi Castrejon Primary Care Provider: Adarsh Urbina Consulting Providers: Edis Vergara ; Trev Steward Instructions Additional Instructions / Restrictions: Continue take all your medications as prescribed You are strongly encouraged to stop smoking. Discharge Orders/Prescriptions Prescriptions: New amoxicillin-pot clavulanate [Augmentin] 500-125 mg tablet 1 tab PO BID 7 Days Qty: 14 RF: 0 Continued budesonide-formoterol 160-4.5 mcg/actuation HFA aerosol inhaler 2 puff inhalation BID RF: 0 albuterol sulfate 90 mcg/actuation HFA aerosol inhaler 2 puff inhalation Q4H PRN PRN (Reason: Sob &/Or Wheezing) Qty: 8.5 RF: 0 hydrochlorothiazide 25 mg tablet 25 mg PO DAILY Qty: 90 RF: 3 Eliquis 5 mg tablet 5 mg PO BID Qty: 180 RF: 3 metoprolol tartrate 100 mg tablet 100 mg PO BID 30 Days Qty: 180 RF: 3 aspirin 81 mg capsule 81 mg PO DAILY Qty: 90 RF: 1 tramadol 50 MG tablet 1 tab PO BID PRN (Reason: Pain) RF: 0 lisinopril 20 mg tablet 20 mg PO DAILY RF: 0 clonazepam 2 mg tablet 2 mg PO BID PRN (Reason: Anxiety) RF: 0 Multaq 400 mg tablet 400 mg PO BID Qty: 60 RF: 11 Referrals / Follow Up: Adarsh Urbina MD [Primary Care Provider] - In 1 Week Disposition Disposition (needs filled in before D/C Order can be placed): Home, Self Care
--- NOTE | 2022-02-07 11:15 | DS.PCM_ITS ---
Providers Date of Admission: 02/06/22 Date of Discharge: 02/07/22 Primary Care Physician: Dr. Adarsh Urbina MD Consultations 02/06/22 21:25 Consult: Cardiology Routine Consulting Provider: Trev Steward Reason for Consult: Afib with RVR EMERGENT Consult: No MD Notified: Yes Date Notified: 02/06/22 Time Notified: 19:53 Method of Notification: Verbal Reason For Visit: AFIB WITH RVR Diagnosis Discharge Diagnosis (1) Atrial fibrillation with RVR: Status: Acute Code(s): I48.91 - Unspecified atrial fibrillation (2) Elevated troponin: Status: Acute Code(s): R77.8 - Other specified abnormalities of plasma proteins (3) Atherosclerotic heart disease of [place] coronary artery without angina pectoris: Status: Chronic Code(s): I25.10 - Atherosclerotic heart disease of [place] coronary artery without angina pectoris Medications at Discharge Home Medications tramadol 1 tab PO BID PRN 04/19/19 lisinopril 20 mg PO DAILY 01/08/21 budesonide-formoterol HFA 160 mcg-4.5 mcg/actuation aerosol inhaler 2 puff INHALATION BID 02/05/21 albuterol sulfate 90 mcg/actuation aerosol inhaler 2 puff INHALATION Q4H PRN PRN #8.5 g 08/06/21 hydrochlorothiazide 25 mg tablet 25 mg PO DAILY #90 tab 08/06/21 dronedarone 400 mg tablet 400 mg PO BID #60 tab 08/14/21 clonazepam 2 mg PO BID PRN 12/18/21 apixaban 5 mg tablet 5 mg PO BID #180 tab 01/03/22 aspirin 81 mg capsule 81 mg PO DAILY #90 cap 01/03/22 metoprolol tartrate 100 mg tablet 100 mg PO BID 30 Days #180 tab 01/03/22 amoxicillin-pot clavulanate [Augmentin] 1 tab PO BID 7 Days #14 tab 02/07/22 Hospital Course Operations None Procedures 2-D Echocardiogram Summary of Care Provided Minutes Spent on Discharge: 40 Hospital Course: 71-year-old female with past medical history of paroxysmal A. fib, who was recently discharged from [facility] on 02/04/2022 after she had gone in for cryoablation. Patient presented back with AF with RVR. She was admitted to ICU under stepdown status. She was managed on IV amiodarone. Patient converted to normal sinus rhythm. 2D echo done shows EF of 55 to 60%. Patient was seen by cardiology and r ecommended follow-up in the outpatient. She was discharged on apixaban, dronedarone and metoprolol. Patient had complained of cough during this hospital stay. Chest x-ray has showed a left lower lobe infiltrate/atelectasis. She was given incentive spirometer. She was given a short course of Augmentin for possible community- acquired pneumonia. Physical Exam Narrative Physical exam: General: Alert, Oriented x3, Cooperative, No apparent distress HEENT: Atraumatic Oral: Moist Mucosa Neck: Supple Lungs: Diminished to auscultation at lung bases Cardiovascular: HS I+II, regular, no murmurs Abdomen: Bowel Sounds Present, Soft, Non Tender Extremities: No edema Skin: No rashes, No breakdown Neurological: Grossly intact, myoclonic jerks Psych/Mental Status: Appropriate Weight / BMI Weight Weight: 67.8 kg Body Mass Index (BMI) 24.7 ABG / Lab / Microbiology Data Result Diagrams: 02/06/22 17:52 02/06/22 17:52 Laboratory: Laboratory Results - last 24 hr 02/06/22 17:52: WBC 11.1 H, RBC 3.79 L, Hgb 12.1, Hct 36.5 L, MCV 96.3, MCH 31.9, MCHC 33.2, RDW Std Deviation 46.5 H, RDW Coeff of Claudia 13.0, Plt Count 250, MPV 10.6, Immature Gran % (Auto) 0.500, Neut % (Auto) 87.2 H, Lymph % (Auto) 6.2 L, [place] % (Auto) 3.5, Eos % (Auto) 2.3, Baso % (Auto) 0.3, Absolute Neuts (auto) 9.7 H, Absolute Lymphs (auto) 0.69 L, Nucleated RBC % 0 02/06/22 17:52: Sodium 139, Potassium 3.8, Chloride 105, Carbon Dioxide 25.0, Anion Gap 9, BUN 12, Creatinine 0.90, Estim Creat Clear Calc 48.11, Est GFR (MDRD) Af Amer 80, Est GFR (MDRD) Non-Af 66, BUN/Creatinine Ratio 13.3, Glucose 190 H, Calcium 9.0, Troponin I High Sens 1619 H* 02/06/22 19:55: Magnesium 2.1 02/06/22 22:19: Troponin I High Sens 1251 H* Radiography Diagnostic Testing: Radiology Impression Chest X-Ray 02/06/22 18:22 IMPRESSION: ASHD. Mild left lower lobe atelectasis or infiltrate Electronically Signed: Jose June MD at 18:38 EDT Reading Location ID and State: [facility] / [place] , Service support , Echocardiogram 02/07/22 08:34 Interpretation Summary PT REFUSED IV FOR BUBBLE. The estimated ejection fraction is 55-60 %. Normal LV systolic function Ordering Physician: Yeimi Castrejon Performed By: Citlaly Benitez RCS D/C Instructions Discharge Diet: Low fat / Low cholesterol and 2000 mg Sodium Diet Weight Bearing Status: Weight bearing as tolerated Meaningful Use Info Meaningful Use Diagnoses (Choose all that apply): None applicable Discharge Plan Admission Admit Date/Time: 02/06/22 19:44 Primary Reason for Your Visit: A fib with RVR Attending Provider: Yeimi Castrejon Primary Care Provider: Adarsh Urbina Consulting Providers: Edis Vergara ; Trev Steward Instructions Additional Instructions / Restrictions: Continue take all your medications as prescribed You are strongly encouraged to stop smoking. Discharge Orders/Prescriptions Prescriptions: New amoxicillin-pot clavulanate [Augmentin] 500-125 mg tablet 1 tab PO BID 7 Days Qty: 14 RF: 0 Continued budesonide-formoterol 160-4.5 mcg/actuation HFA aerosol inhaler 2 puff inhalation BID RF: 0 albuterol sulfate 90 mcg/actuation HFA aerosol inhaler 2 puff inhalation Q4H PRN PRN (Reason: Sob &/Or Wheezing) Qty: 8.5 RF: 0 hydrochlorothiazide 25 mg tablet 25 mg PO DAILY Qty: 90 RF: 3 Eliquis 5 mg tablet 5 mg PO BID Qty: 180 RF: 3 metoprolol tartrate 100 mg tablet 100 mg PO BID 30 Days Qty: 180 RF: 3 aspirin 81 mg capsule 81 mg PO DAILY Qty: 90 RF: 1 tramadol 50 MG tablet 1 tab PO BID PRN (Reason: Pain) RF: 0 lisinopril 20 mg tablet 20 mg PO DAILY RF: 0 clonazepam 2 mg tablet 2 mg PO BID PRN (Reason: Anxiety) RF: 0 Multaq 400 mg tablet 400 mg PO BID Qty: 60 RF: 11 Referrals / Follow Up: Yousif Mendoza MD [STAFF PHYSICIAN] - Within 2 Weeks Adarsh Urbina MD [Primary Care Provider] - In 1 Week Disposition Disposition (needs filled in before D/C Order can be placed): Home, Self Care Charges/Coding Visit Charges Inpatient E&M: [id number] Disch Hosp
== END 2022-02-07 12:35 | disposition home or self-care (01) | DRG 308 ==
LOC: ED 19:57 → PCU 20:39 → ICU 02-07 07:06 → PCU 07-29 16:31
PROVIDERS: Nurse Practitioner; Admitting Provider Hospitalist; Emergency Provider Emergency Medicine; PCP Family Medicine; Visit Provider Internal Medicine
DX: I48.0 Paroxysmal atrial fibrillation (principal); J44.0 Chronic obstructive pulmonary disease with (acute) lower respiratory infection; I27.21 Secondary pulmonary arterial hypertension; J18.9 Pneumonia, unspecified organism; J98.11 Atelectasis; G25.3 Myoclonus; I95.9 Hypotension, unspecified; I25.10 Atherosclerotic heart disease of native coronary artery without angina pectoris; E78.5 Hyperlipidemia, unspecified; I10 Essential (primary) hypertension; K21.9 Gastro-esophageal reflux disease without esophagitis; K58.9 Irritable bowel syndrome, unspecified; F17.200 Nicotine dependence, unspecified, uncomplicated; F32.A Depression, unspecified; Z87.19 Personal history of other diseases of the digestive system; Z79.899 Other long term (current) drug therapy; Z79.01 Long term (current) use of anticoagulants; Z79.82 Long term (current) use of aspirin; Z95.5 Presence of coronary angioplasty implant and graft; Z98.890 Other specified postprocedural states; R79.89 Other specified abnormal findings of blood chemistry; Z86.74 Personal history of sudden cardiac arrest
CPT/HCPCS: 96374; 36415; 71045; 80048; 83735; 84484; 85025; 93005; 93306; 96365; 96366; 96375; 96376; 97802; 99251; 99285; 99406; J7030; J7050; A4216; G0463

== ENCOUNTER 2022-05-25 10:54 | Emergency (ER) | payer MEDICARE, SELFPAY ==
[2022-05-25 10:58] VITALS: BP 172/89; PULSE 69; RESP 17; TEMP 37; O2SAT 96; BMI 21.2
[2022-05-25 11:06] VITALS: RESP 18
--- NOTE | 2022-05-25 11:50 | EX.ED.DYSGE1 ---
HPI History of Present Illness Chief Complaint: Dizziness Detail of Chief Complaint: Nausea and vomiting Informant: patient and family Onset/Context/Timing Onset: Today Context: Sudden Onset Timing: Continuous Quality: Aching Location: Neck Worsened by: Movement Relieved by: Nothing Narrative Narrative: Patient presents with nausea and vomiting that began today. Patient states it came on rather suddenly while she was at work today. 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 Patient states they told her she was in atrial fibrillation. Patient states she has a history of paroxysmal atrial fibrillation. Patient denies any palpitations. Patient admits to some pain in her neck. Patient states she was seen for this recently and had a CT scan done at a different hospital. Patient states her pain is aching. Patient states it is worse with certain movements. Patient denies any paresthesias or weakness. PFSH PFS Medical History Anemia Atherosclerotic heart disease of [place] coronary artery without angina pectoris Atrial fibrillation with RVR (02/06/22) COPD (chronic obstructive pulmonary disease) Depression Essential hypertension GERD (gastroesophageal reflux disease) History of ST elevation myocardial infarction (STEMI) (05/08/18) Hyperlipidemia Irritable bowel Left atrial enlargement Myoclonic disorder Paroxysmal atrial fibrillation Secondary pulmonary hypertension Sigmoid diverticulitis Thyroid nodule Tobacco abuse Home Medications tramadol 50 mg tablet 1 tab PO BID PRN Pain 04/19/19 [History Last Taken 12/15/21] lisinopril 20 mg tablet 20 mg PO DAILY blood pressure 01/08/21 [History Last Taken 12/18/21] budesonide-formoterol HFA 160 mcg-4.5 mcg/actuation aerosol inhaler 2 puff inhalation BID copd 02/05/21 [History Last Taken 12/14/21] albuterol sulfate 90 mcg/actuation aerosol inhaler 2 puff inhalation Q4H PRN PRN Sob &/Or Wheezing #8.5 grams 08/06/21 [Rx Last Taken 12/16/21] dronedarone 400 mg tablet (Multaq) 400 mg PO BID directions corrected: should be twice daily #60 tabs 08/14/21 [Rx Last Taken Unknown] clonazepam 2 mg tablet 2 mg PO BID PRN Anxiety 12/18/21 [History Last Taken 12/16/21] apixaban 5 mg tablet (Eliquis) 5 mg PO BID #180 tabs 01/03/22 [Rx Last Taken Unknown] aspirin 81 mg capsule 81 mg PO DAILY #90 caps 01/03/22 [Rx Last Taken Unknown] metoprolol tartrate 100 mg tablet 100 mg PO BID 30 days #180 tabs 01/03/22 [Rx Last Taken Unknown] amoxicillin 500 mg-potassium clavulanate 125 mg tablet (Augmentin) 1 tab PO BID 7 days #14 tabs 02/07/22 [Rx Last Taken Unknown] hydrochlorothiazide 25 mg tablet 25 mg PO DAILY blood pressure #30 tabs 02/07/22 [Rx Last Taken Unknown] Allergy/AdvReac Type Severity Reaction Status Date / Time levofloxacin [From Levaquin] Allergy Rash Verified 05/25/22 11:05 phenytoin [From Dilantin] Allergy Swelling Verified 05/25/22 11:05 sertraline AdvReac Intermediate anxiety Verified 05/25/22 11:05 Family History Mother Hypertension CVA (cerebral vascular accident) CAD (coronary artery disease) Father Colon cancer Leukemia Throat cancer Surgical History History of breast lump removal History of cardioversion (06/2021) History of coronary artery stent placement (05/08/18) History of left heart catheterization (10/04/14) History of lobectomy of thyroid History of radiofrequency ablation procedure for cardiac arrhythmia (02/03/22) History of thyroidectomy History of total abdominal hysterectomy Social History housing: house number of children: 1 Smoking Status: Heavy Smoker (>10/day) Tobacco: How many years used: 50 alcohol intake: never substance use type: does not use ROS ROS ED Constitutional Constitutional ED: Reports chills and subjective; Denies fever(s) Eyes Eyes: Denies blurry vision or change in vision ENT ENT ED: Denies rhinorrhea or sore throat Cardiovascular Cardiovascular: Denies chest pain or palpitations Respiratory/Chest Respiratory/Chest: Reports cough; Denies dyspnea Gastrointestinal Gastrointestinal: Reports nausea and vomiting Genitourinary Genitourinary ED: Denies dysuria or hematuria Musculoskeletal Musculoskeletal: Reports neck pain; Denies back pain Integumentary Denies abscess or rash Neurologic Neurologic: Reports headache(s); Denies weakness Allergic/Immunologic Allergic/Immunologic ED: Denies mouth swelling or urticaria EXAM Physical Exam Const Vital Signs: 05/25/22 10:58 05/25/22 11:02 05/25/22 11:06 Temperature 98.6 F Temperature Source Temporal Pulse Rate 69 Respiratory Rate 17 18 Respiratory Effort Normal Blood Pressure 172/89 H Blood Pressure Mean 116 Pulse Ox 96 Oxygen Delivery Method Room Air Positive well nourished and well developed General Appearance ED: well developed HEENT Reports moist mucous membranes Neck supple and no JVD Resp normal respiratory effort and clear to auscultation bilaterally Cardio regular rate and regular rhythm GI normal to inspection, nondistended, normoactive bowel sounds and non-tender Palpation: soft Extremity normal to inspection General Extremety ED: Negative for edema or tenderness General Extremity: Negative for edema Neuro oriented x3, CN's II-XII intact bilaterally and no sensory deficits noted Sensorium / Orientation: alert Motor Exam: strength 5/5 throughout Psych mental status grossly normal Skin no rashes or lesions noted MDM MDM MDM Narrative Medical decision making narrative: EKG was obtained. On my interpretation, it showed a normal sinus rhythm with a rate of 68. [place] interval, QRS interval, and QTc intervals were all normal. [place] was normal. There are nonspecific ST-T wave changes. Basic labs were ordered. Patient does not want to have these drawn. Patient states that since she is not in atrial fibrillation she does not feel she needs to be here. Patient wants to be discharged. Patient was instructed to follow-up with her primary care physician in 5 to 7 days. Patient was instructed return if worse in any way. Patient understood and was agreeable with the plan. All questions were answered. EKG Initial EKG: Attestation: I personally reviewed and interpreted this EKG as follows: Interpretation: Sinus Rhythm (68) and Non-Specific ST Changes Prior EKG tracings: available for review Prior: Unchanged (02/07/2022) Discharge Plan Triage Chief Complaint: Dizziness ED Provider: Luis Monzon Dx/Rx/DC Orders Clinical Impression: Nausea and vomiting Instructions: ED Vomiting (Adult) Prescriptions: No Action budesonide-formoterol 160-4.5 mcg/actuation HFA aerosol inhaler 2 puff inhalation BID albuterol sulfate 90 mcg/actuation HFA aerosol inhaler 2 puff inhalation Q4H PRN PRN (Reason: Sob &/Or Wheezing) Qty: 8.5 0RF Eliquis 5 mg tablet 5 mg PO BID Qty: 180 3RF metoprolol tartrate 100 mg tablet 100 mg PO BID 30 Days Qty: 180 3RF aspirin 81 mg capsule 81 mg PO DAILY Qty: 90 1RF tramadol 50 MG tablet 1 tab PO BID PRN (Reason: Pain) lisinopril 20 mg tablet 20 mg PO DAILY Label Comments: take 1 tablet by mouth once daily clonazepam 2 mg tablet 2 mg PO BID PRN (Reason: Anxiety) Label Comments: TAKE 1 TABLET BY MOUTH TWICE DAILY IF NEEDED amoxicillin-pot clavulanate [Augmentin] 500-125 mg tablet 1 tab PO BID 7 Days Qty: 14 0RF hydrochlorothiazide 25 mg tablet 25 mg PO DAILY Qty: 30 0RF Multaq 400 mg tablet 400 mg PO BID Qty: 60 11RF Rx Instructions: must administer with a meal/food Primary Care Provider: Adarsh Urbina Referrals: Adarsh Urbina MD [Primary Care Provider] - 3-5 Days Disposition Disposition: Home, Self Care
--- NOTE | 2022-05-25 11:55 | EKG12_ITS ---
Test Reason : DIZZINESS Blood Pressure : / mmHG Vent. Rate : 068 BPM Atrial Rate : 068 BPM P-R Int : 158 ms QRS Dur : 076 ms QT Int : 452 ms P-R-T Axes : 056 053 095 degrees QTc Int : 480 ms Normal sinus rhythm Nonspecific T wave abnormality Abnormal ECG Confirmed by MIGUEL GRIMALDO, APRIL ([id number]), business editor [facility] ([id number]) on 05/26/2022 10:20:30 AM Referred By: MARK Confirmed By:APRIL RIVERA MD
--- NOTE | 2022-05-25 12:09 | ED.RN ---
This RN went into start IV and draw blood, pt. refused IV. I offered to perform a straight stick if she did not want an IV and patient stated well I am not even in afib anymore I really do not see a point in being here and waiting for 6 hours when I feel fine. Pt. educated she had the right to leave if she did not want to be treated. Dr. Monzon notified patient will be leaving AMA. Pt. currently getting dressed.
== END 2022-05-25 12:13 | disposition home or self-care (01) ==
PROVIDERS: Emergency Provider Emergency Medicine; PCP Family Medicine; Visit Provider Emergency Medicine
DX: R11.2 Nausea with vomiting, unspecified (principal); J44.9 Chronic obstructive pulmonary disease, unspecified; I27.29 Other secondary pulmonary hypertension; I48.0 Paroxysmal atrial fibrillation; I25.10 Atherosclerotic heart disease of native coronary artery without angina pectoris; F32.A Depression, unspecified; I10 Essential (primary) hypertension; I25.2 Old myocardial infarction; E78.5 Hyperlipidemia, unspecified; K58.9 Irritable bowel syndrome, unspecified; G25.3 Myoclonus; Z87.19 Personal history of other diseases of the digestive system; K21.9 Gastro-esophageal reflux disease without esophagitis; Z79.82 Long term (current) use of aspirin; Z79.01 Long term (current) use of anticoagulants; Z79.899 Other long term (current) drug therapy; Z95.5 Presence of coronary angioplasty implant and graft; F17.200 Nicotine dependence, unspecified, uncomplicated
CPT/HCPCS: 93005; 99284; A4216

== ENCOUNTER 2022-05-29 16:46 | Emergency (ER) | payer MEDICARE, SELFPAY ==
[2022-05-29] VITALS (7 sets, daily range): BP systolic 85–126; BP diastolic 69–94; PULSE 72–162; RESP 16–20; TEMP 36.4; O2SAT 95–97; BMI 19.3
--- NOTE | 2022-05-29 17:07 | EKG12_ITS ---
Test Reason : CP Blood Pressure : / mmHG Vent. Rate : 175 BPM Atrial Rate : 000 BPM P-R Int : 000 ms QRS Dur : 076 ms QT Int : 280 ms P-R-T Axes : 000 045 216 degrees QTc Int : 477 ms Atrial fibrillation with rapid ventricular response Cannot rule out Anterior infarct , age undetermined ST & T wave abnormality, consider inferolateral ischemia Abnormal ECG Confirmed by MIGUEL GRIMALDO, APRIL ([id number]), dictionary editor JULIUS DE LA ROSA ([id number]) on 05/31/2022 9:32:58 AM Referred By: Confirmed By:APRIL RIVERA MD
--- NOTE | 2022-05-29 17:09 | EDS_ITS ---
HPI History of Present Illness Chief Complaint: Chest Pain Narrative Narrative: Patient with past medical history of atrial fibrillation, on metoprolol, presents with rapid heart rate, palpitations, and chest pain that began approximately 45 minutes to an hour ago. She states that she is on a blood thinner but cannot recall which 1, but then remembered that it is Eliquis. She missed last evening's dose and this morning's because she states she was so sick. She had left-sided neck pain yesterday that was incapacitating her. She presents with rapid heart rate and chest pain similar to when she has been in atrial fibrillation before. She denies any leg swelling. No shortness of breath, no other symptoms. She states this feels exactly like when she goes into A. fib. [facility] Medical History Anemia Atherosclerotic heart disease of [place] coronary artery without angina pectoris Atrial fibrillation with RVR (02/06/22) COPD (chronic obstructive pulmonary disease) Depression Essential hypertension GERD (gastroesophageal reflux disease) History of ST elevation myocardial infarction (STEMI) (05/08/18) Hyperlipidemia Irritable bowel Left atrial enlargement Myoclonic disorder Paroxysmal atrial fibrillation Secondary pulmonary hypertension Sigmoid diverticulitis Thyroid nodule Tobacco abuse Home Medications tramadol 50 mg tablet 1 tab PO BID PRN Pain 04/19/19 [History Last Taken 12/15/21] lisinopril 20 mg tablet 20 mg PO DAILY blood pressure 01/08/21 [History Last Taken 12/18/21] budesonide-formoterol HFA 160 mcg-4.5 mcg/actuation aerosol inhaler 2 puff inhalation BID copd 02/05/21 [History Last Taken 12/14/21] albuterol sulfate 90 mcg/actuation aerosol inhaler 2 puff inhalation Q4H PRN PRN Sob &/Or Wheezing #8.5 grams 08/06/21 [Rx Last Taken 12/16/21] dronedarone 400 mg tablet (Multaq) 400 mg PO BID directions corrected: should be twice daily #60 tabs 08/14/21 [Rx Last Taken Unknown] clonazepam 2 mg tablet 2 mg PO BID PRN Anxiety 12/18/21 [History Last Taken 12/16/21] apixaban 5 mg tablet (Eliquis) 5 mg PO BID #180 tabs 01/03/22 [Rx Last Taken Unknown] aspirin 81 mg capsule 81 mg PO DAILY #90 caps 01/03/22 [Rx Last Taken Unknown] metoprolol tartrate 100 mg tablet 100 mg PO BID 30 days #180 tabs 01/03/22 [Rx Last Taken Unknown] amoxicillin 500 mg-potassium clavulanate 125 mg tablet (Augmentin) 1 tab PO BID 7 days #14 tabs 02/07/22 [Rx Last Taken Unknown] hydrochlorothiazide 25 mg tablet 25 mg PO DAILY blood pressure #30 tabs 02/07/22 [Rx Last Taken Unknown] Allergy/AdvReac Type Severity Reaction Status Date / Time levofloxacin [From Levaquin] Allergy Rash Verified 05/29/22 16:59 phenytoin [From Dilantin] Allergy Swelling Verified 05/29/22 16:59 sertraline AdvReac Intermediate anxiety Verified 05/29/22 16:59 Family History Mother Hypertension CVA (cerebral vascular accident) CAD (coronary artery disease) Father Colon cancer Leukemia Throat cancer Surgical History History of breast lump removal History of cardioversion (06/2021) History of coronary artery stent placement (05/08/18) History of left heart catheterization (10/04/14) History of lobectomy of thyroid History of radiofrequency ablation procedure for cardiac arrhythmia (02/03/22) History of thyroidectomy History of total abdominal hysterectomy Social History housing: house number of children: 1 Smoking Status: Heavy Smoker (>10/day) Tobacco: How many years used: 50 alcohol intake: never substance use type: does not use ROS ROS ED ROS Narrative Constitutional: No fever, no chills. HEENT: No sore throat. No neck pain. No loss of vision. No rhinorrhea. Cardiovascular: Positive chest pain. Positive palpitations. No pedal edema. Respiratory: No cough, no shortness of breath. Abdominal: No abdominal pain. No nausea. No vomiting. Genitourinary: No dysuria. No hematuria. Musculoskeletal: No myalgias. No arthralgias. Neurologic: No headaches. No dizziness. No lightheadedness. Skin: No rash. No change in color. Psychiatric: No depression. No anxiety. EXAM Physical Exam Narrative Exam Narrative: Afebrile. Vital signs noted. HEENT: Normocephalic. Atraumatic. PERRL, EOMI. Neck soft and supple. No point tenderness or step off. Cardiovascular: Irregularly irregular tachycardia in the 160s. No murmurs, rubs, or gallops appreciated. Respiratory: No tachypnea. Lungs clear to auscultation bilaterally. Gastrointestinal: Abdomen soft, nontender, with normoactive bowel sounds. No rebound or guarding. Neurological: Awake. Alert. Nonfocal, nonlateralizing. Skin: No rash. Normal color. No pallor. Musculoskeletal: No pedal edema. Full range of motion extremities. Const Vital Signs: 05/29/22 16:55 05/29/22 16:47 05/29/22 17:20 Temperature 97.6 F L Temperature Source Temporal Pulse Rate 162 H 130 H Respiratory Rate 16 20 H Blood Pressure 126/94 H 111/78 Blood Pressure Mean 104 89 Pulse Ox 97 95 Oxygen Delivery Method Room Air Room Air 05/29/22 17:25 05/29/22 17:30 05/29/22 17:32 Temperature Temperature Source Pulse Rate 132 H 73 Respiratory Rate 18 16 Blood Pressure 85/69 L 113/75 Blood Pressure Mean 74 87 Pulse Ox 96 96 Oxygen Delivery Method Room Air Room Air Room Air 05/29/22 18:20 Temperature Temperature Source Pulse Rate 75 Respiratory Rate 18 Blood Pressure 118/76 Blood Pressure Mean 90 Pulse Ox 96 Oxygen Delivery Method Room Air Heart Score History: Slightly/Non-Suspicious Age: >/= 65 years Risk Factors: >/= 3 Risk Factors or History of CAD Score: 4 MDM MDM MDM Narrative Medical decision making narrative: I reviewed her prior records. I had actually seen her previously this year prior to her attempted ablation and she was admitted for refractory atrial fibrillation. She had received Cardizem, Lopressor, and after discussion with Dr. Mendoza, amiodarone. She will be given Lopressor here as she is on metoprolol to see if there can be any reduction in her rate. Basic laboratories will be checked including troponin. EKG interpreted by myself shows atrial fibrillation with rapid ventricular response at [address] changes. CBC is grossly normal with a normal white count, normal hemoglobin, normal platelet count. Electrolyte panel shows BUN of 22 with a creatinine of 0.90. Troponin is 34. Chest x-ray interpreted by myself shows no acute process. After 2 doses of Lopressor intravenously, she did have transient hypotension, but was still mentating. 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 She feels improved. At this point in time, she states that she was unable to take her Eliquis because of her torticollis that she is being treated for. She takes multiple medications for that. I discussed the patient with Dr. Steward who agrees with continuation of her Eliquis, her metoprolol for maintenance of low rate, and that she should contact [facility] where she states she is supposed to have a pacemaker placed because her ablation that she had in January did not work. I feel she be discharged safely home with follow- up. Return instructions were reviewed. Disposition is discharged home in stable condition. Lab Data Labs: Laboratory Results - last 24 hr 05/29/22 05/29/22 17:22 17:22 WBC 5.2 RBC 4.60 Hgb 14.6 Hct 44.2 MCV 96.1 MCH 31.7 MCHC 33.0 RDW Std Deviation 48.8 H RDW Coeff of Claudia 13.7 Plt Count 187 MPV 11.0 Immature Gran % (Auto) 0.200 Neut % (Auto) 59.9 Lymph % (Auto) 24.2 Edmunds % (Auto) 15.3 H Eos % (Auto) 0.2 Baso % (Auto) 0.2 Absolute Neuts (auto) 3.1 Absolute Lymphs (auto) 1.25 Nucleated RBC % 0 Sodium 140 Potassium 3.5 Chloride 102 Carbon Dioxide 27.0 Anion Gap 11 BUN 22 H Creatinine 0.90 Estim Creat Clear Calc 56.23 Est GFR (MDRD) Af Amer 79 Est GFR (MDRD) Non-Af 66 BUN/Creatinine Ratio 24.4 H Glucose 120 H Calcium 9.1 Troponin I High Sens 34 Radiography Diagnostic Testing: Clinical Impression(s) from Imaging Studies Chest X-Ray 05/29/22 17:45 IMPRESSION: Stable bibasilar opacities which may represent scar. There has been no change from reference exam. Electronically Signed: Carlos Funes MD at 18:00 EDT , Discharge Plan Triage Chief Complaint: Chest Pain ED Provider: Logan Morel Dx/Rx/DC Orders Clinical Impression: Chest pain, Torticollis, Paroxysmal atrial fibrillation, History of radiofrequency ablation procedure for cardiac arrhythmia Instructions: ED AFIB, ED Chest Pain, Uncertain Cause Prescriptions: No Action budesonide-formoterol 160-4.5 mcg/actuation HFA aerosol inhaler 2 puff inhalation BID albuterol sulfate 90 mcg/actuation HFA aerosol inhaler 2 puff inhalation Q4H PRN PRN (Reason: Sob &/Or Wheezing) Qty: 8.5 0RF Eliquis 5 mg tablet 5 mg PO BID Qty: 180 3RF metoprolol tartrate 100 mg tablet 100 mg PO BID 30 Days Qty: 180 3RF aspirin 81 mg capsule 81 mg PO DAILY Qty: 90 1RF tramadol 50 MG tablet 1 tab PO BID PRN (Reason: Pain) lisinopril 20 mg tablet 20 mg PO DAILY Label Comments: take 1 tablet by mouth once daily clonazepam 2 mg tablet 2 mg PO BID PRN (Reason: Anxiety) Label Comments: TAKE 1 TABLET BY MOUTH TWICE DAILY IF NEEDED amoxicillin-pot clavulanate [Augmentin] 500-125 mg tablet 1 tab PO BID 7 Days Qty: 14 0RF hydrochlorothiazide 25 mg tablet 25 mg PO DAILY Qty: 30 0RF Multaq 400 mg tablet 400 mg PO BID Qty: 60 11RF Rx Instructions: must administer with a meal/food Primary Care Provider: Adarsh Urbina Referrals: Yousif Mendoza MD [Med Staff - Active Staff] - 1-2 Days if not improving Adarsh Urbina MD [Primary Care Provider] - Activity Restrictions/Additional Instructions: Continue your metoprolol. Make sure to restart your Eliquis. Contact [facility] regarding pacemaker placement. Disposition Disposition: Home, Self Care
[2022-05-29] MEDS: Metoprolol Tartrate 5 MG/5 ML Vial IV ×2 (17:15→17:21)
[2022-05-29] MEDS: Aspirin 81 MG TAB.CHEW 324 MG PO (17:17)
[2022-05-29 17:44] LABS: Absolute Lymphocyte Count 1.25 X10^3/uL (0.83-4.51); Absolute Neutrophil Count 3.1 X10^3/uL (2.0-7.7); Basophil# 0.01 X10^3/uL; Basophil% 0.2 % (0-1); Eosinophil# 0.01 X10^3/uL; Eosinophils% 0.2 % (0-5); Hematocrit 44.2 % (37-47); Hemoglobin 14.6 g/dL (12.0-15.0); Lymphocyte # 1.25 X10^3/ul (0.83-4.51); Lymphocyte % 24.2 % (19-41); Mean Corpuscular Hgb 31.7 pg (27.0-32.0); Mean Corpuscular Volume 96.1 fL (81-99); Monocyte# 0.79 X10^3/uL; Monocyte% 15.3 % (0-10); NRBC Flagged by Analyzer 0 % (0-5); Neutrophil % 59.9 % (47-70); Platelet Count 187 K/mm3 (150-450); RBC Distribution Width CV 13.7 % (11.6-14.6); RBC Distribution Width SD 48.8 fl (35.1-43.9); White Blood Count 5.2 K/mm3 (4.4-11.0)
--- NOTE | 2022-05-29 17:45 | RAD_ITS ---
EXAM: XR CHEST, 1 VIEW CLINICAL INDICATION: chest pain TECHNIQUE: Frontal view of the chest. This report was created using [email or web address] report generation technology. COMPARISON: 12/18/2021 FINDINGS: LUNGS AND PLEURAL SPACES: There is minimal bibasilar opacities which may represent scar. No pneumothorax. No effusion. HEART: Unremarkable. Cardiac silhouette not enlarged. MEDIASTINUM: Central airways and mediastinal contour are unremarkable. BONES/JOINTS: Unremarkable. SOFT TISSUES: Unremarkable. RAD/Chest 1 View (Portable) IMPRESSION: Stable bibasilar opacities which may represent scar. There has been no change from reference exam. Electronically Signed: Carlos Funes MD at 18:00 EDT ,
[2022-05-29 17:47] LABS: Anion Gap 11 (5-15); BUN 22 mg/dL (7-18); BUN/Creat Ratio 24.4 RATIO (10-20); Calcium,Total 9.1 mg/dL (8.5-10.1); Chloride 102 mmol/L (98-107); EST Glomerular Filtration Rate 66 mL/min (>60); Est Glom Filt Rate - Afr Amer 79 mL/min (>60); Estimated Creatinine Clearance 56.23 ml/min; Glucose 120 mg/dL (74-106); Potassium 3.5 mmol/L (3.5-5.1); Sodium Level 140 mmol/L (136-145); Troponin-I HS (w/2H Reflex) 34 pg/mL (3.0-54.0)
[2022-05-29 19:26] LABS: Reflex Troponin-HS? (from REC) Y
== END 2022-05-29 19:32 | disposition home or self-care (01) ==
PROVIDERS: Emergency Provider Emergency Medicine; PCP Family Medicine; Visit Provider Emergency Medicine
DX: M43.6 Torticollis (principal); J44.9 Chronic obstructive pulmonary disease, unspecified; I48.0 Paroxysmal atrial fibrillation; R07.9 Chest pain, unspecified; I10 Essential (primary) hypertension; E78.5 Hyperlipidemia, unspecified; I25.10 Atherosclerotic heart disease of native coronary artery without angina pectoris; F17.200 Nicotine dependence, unspecified, uncomplicated; I95.9 Hypotension, unspecified; Z79.899 Other long term (current) drug therapy; Z79.82 Long term (current) use of aspirin
CPT/HCPCS: 71045; 80048; 84484; 85025; 93005; 99285; J7030; A4216

== ENCOUNTER 2025-07-10 04:53 | Observation (INO) | payer MEDICARE, SELFPAY ==
[2025-07-10] VITALS (11 sets, daily range): BP systolic 130–189; BP diastolic 65–100; PULSE 70–83; RESP 16–31; TEMP 36.5–37.1; O2SAT 89–98; BMI 17.8; BMI 19.4
--- NOTE | 2025-07-10 05:40 | RAD_ITS ---
PROCEDURE: CHEST PA AND LATERAL 07/10/2025 REASON FOR EXAM: CHEST PAIN TECHNIQUE: Procedure Code: RADCXR Modality: DX Procedure: CHEST PA AND LATERAL COMPARISON: None. FINDINGS: The lungs are emphysematous. Bilateral blunting of the costophrenic angles, probably adhesions. Bilateral basilar atelectatic pulmonary changes/infiltrates. Enlarged cardiac silhouette. Normal mediastinum and sheron. Normal visualized pulmonary arteries. Atheromatous plaques of the visualized aortic arch and descending thoracic aorta. Diffuse spondylosis of the visualized thoracic spine. Normal visualized ribs, clavicles. Degenerative joint disease. There is no demonstrated abnormality of the visualized soft tissue structures of the upper abdomen. RAD/Chest PA and Lateral IMPRESSION: Emphysema. Bilateral blunting of the costophrenic angles, probably adhesions. Bilateral basilar atelectatic pulmonary changes/infiltrates. Enlarged cardiac silhouette. Reading [facility]
[2025-07-10 05:45] LABS: Hematocrit 41.3 % (37-47); Hemoglobin 12.9 g/dL (12.0-15.0); Immature Granulocytes Count 0.030 X10^3/uL (0.0-0.0); Mean Corp Hgb Conc 31.2 g/dL (32-36); Mean Corpuscular Volume 97.2 fL (81-99); Mean Platelet Vol. 10.1 fl (6.2-12.0); NRBC Flagged by Analyzer 0 % (0-5); Platelet Count 326 K/mm3 (150-450); RBC Distribution Width CV 13.8 % (11.6-14.6); RBC Distribution Width SD 49.4 fl (35.1-43.9); Red Blood Count 4.25 M/mm3 (4.2-5.4); White Blood Count 9.6 K/mm3 (4.4-11.0)
[2025-07-10] MEDS: 0.9% Normal Saline (500mL Bag) 500 ML 999 ML IV (05:48)
[2025-07-10] MEDS: Pantoprazole Sodium 40 MG in 0.9% Normal Saline (100mL MB+) 100 ML 300 MG IV (05:49)
--- OUTSIDE RECORDS SUMMARY | 2025-07-10 06:01 | XMS RPT_ITS | CCD ---
Author Organization [facility] Care Team Providers Care Mold Bunch Trimmer Name Role Phone Tariq Levy Unavailable Unavailable Ghoubrial, Kenneth Unavailable Unavailable Ghdulceriham Kenneth Unavailable Unavailable Nelida Santana Primary Care Provider Nelida Santana DO Primary Care Provider Dr. Adarsh Duggan Primary Care Provider MD Logan Morel Emergency Provider Dr. Areli Dominguez Attending Provider Dr. Areli Dominguez Admit Provider Dr. Yousif Mendoza Attending Provider Dr. Yousif Mendoza Other Provider Dr. Berry Franks Other Provider Jose Dave Unavailable Juan C Gaytan Unavailable Adarsh Duggan Primary Care Provider Caryn Wood MD Unavailable Adarsh Duggan MD Primary Care Provider Dr. Adarsh Duggan Primary Care Provider MD Logan Morel Emergency Provider Dr. Edis Vergara Admit Provider Dr. Edis Vergara Attending Provider Dr. Edis Vergara Other Provider Dr. Yeimi Castrejon Attending Provider Dr. Yeimi Castrejon Other Provider Dr. Trev Steward Other Provider Dr. Trev Steward Attending Provider Olga Lidia, Adarsh Primary Care Unavailable PROVIDER, UNKNOWN Referring Unavailable Brayan Bergman Attending Unavailable Olga Lidia, Adarsh Primary Care Unavailable PROVIDER, UNKNOWN Referring Unavailable Bereince Zelaya Attending Unavailable PROVIDER, UNKNOWN Referring Unavailable Olga Lidia, Adarsh Attending Unavailable Esther, Nelida Primary Care Unavailable Olga Lidia, Adarsh Primary Care Unavailable Areli Dominguez Attending Unavailable Olga Lidia, Adarsh Primary Care Unavailable Logan Morel Attending Unavailable Olga Lidia, Adarsh Primary Care Unavailable Luis Monzon Attending Unavailable Agyepong, Edis Consulting Unavailable Agyepong, Edis Admitting Unavailable Olga Lidia, Adarsh Primary Care Unavailable Nuamah, [place]ton Attending Unavailable Belal, Farouk Consulting Unavailable Olga Lidia, Adarsh Primary Care Unavailable Holly Dominguezyn Admitting Unavailable Reji, Yousif Consulting Unavailable Golden, Berry Attending Unavailable Olga Lidia, Adarsh Primary Care Unavailable Belal, Yefriouk Attending Unavailable Olga Lidia, Adarsh Primary Care Unavailable Olga Lidia, Adarsh Referring Unavailable Jose Dave H Attending Unavailable Olga Lidia, Adarsh Referring Unavailable Olga Lidia, Adarsh Primary Care Unavailable RoofJose H Attending Unavailable Olga Lidia, Adarsh Primary Care Unavailable Olga Lidia, Adarsh Referring Unavailable Violette Rocha Attending Unavailable Olga Lidia, Adarsh Referring Unavailable Olga Lidia, Adarsh Primary Care Unavailable Reji, Shedd Attending Unavailable Olga Lidia, Adarsh Primary Care Unavailable Reji, Yousif Attending Unavailable Alberto, Areli Referring Unavailable Agyepong, Edis Admitting Unavailable Olga Lidia, Adarsh Primary Care Unavailable Nuamah, [place] Attending Unavailable Agyepong, Edis Consulting Unavailable Belal, Farouk Consulting Unavailable Nuamah, [place] Consulting Unavailable Agyepong, Edis Attending Unavailable Alberto, Areli Admitting Unavailable Reji, Shedd Consulting Unavailable Golden, Berry Attending Unavailable Golden, Berry Consulting Unavailable Adarsh Duggan MD Primary Care Provider Patt Lerma RN Unavailable Unavailable Patt Lerma RN Unavailable Unavailable Adarsh Duggan MD Primary Care Provider Patt Lerma RN Unavailable Unavailable Sumaya Muniz RN Unavailable Unavailable OLGA LIDIA, ADARSH Attending Unavailable ADARSH DUGGAN Primary Care Unavailable ADARSH DUGGAN Attending Unavailable ADARSH DUGGAN Primary Care Unavailable ADARSH DUGGAN Primary Care Unavailable ADARSH DUGGAN Attending Unavailable ADARSH DUGGAN Referring Unavailable ADARSH DUGGAN Primary Care Unavailable ADARSH DUGGAN Primary Care Unavailable ALEXANDRO NEVILLE Attending Unavailable Allergies Allergy Classification Reported Allergen(s) Allergy Type Date of Onset Reaction(s) Facility (8 sources) Phenytoin Drug Allergy 8 [facility] Work Phone: (8 sources) Sertraline Drug Allergy 7 Anxiety [facility] Work Phone: (20 sources) levoFLOXacin Drug Allergy 5 Rash [facility] Work Phone: (20 sources) Phenytoin Drug Allergy 8 Swelling [facility] Work Phone: (20 sources) Sertraline Drug Allergy 7 Other: See Comments, Anxiety, Unknown [facility] Work Phone: (1 source) levoFLOXacin Drug Allergy 2 [facility] (1 source) Phenytoin Drug Allergy 2 [facility] (1 source) Sertraline Drug Allergy 2 [facility] Medications Current Medications Medication Drug Class(es) Dates Sig (Normalized) Sig (Original) acetaminophen 325 mg / oxyCODONE hydrochloride 5 mg oral tablet (8 sources) Opioid Agonist Start: 01-24-2023 End: 01-29-2023 take 1 tablet by mouth every six hours as needed for pain oxyCODONE-acetamin ophen (Percocet) 5-325 MG tablet Indications: Closed compression fracture of L1 lumbar vertebra, initial encounter ([facility]) Take 1 tablet by mouth every 6 hours as needed for severe pain (7-10) for up to 5 days. 15 tablet 0 01/24/2023 01/29/2023 Active Start: 05-28-2022 End: 05-28-2022 oxyCODONE-acetaminophen (PER COCET) 5-325 MG per tablet 1 tablet Start: 05-28-2022 End: 05-31-2022 oxyCODONE-acetaminophen (PER COCET) 5-325 MG per tablet Indications: Neck pain , Torticollis Take 1 tablet by mouth every 6 hours as needed for Pain for up to 3 days. Intended supply: 3 days. Take lowest dose possible to manage pain 12 tablet 0 05/28/2022 05/31/2022 Active [id number] actuat albuterol 0.09 mg/actuat metered dose inhaler (20 sources) beta2-Adrenergic Agonist Start: 05-03-2025 take 2 puff(s) by inhalation every six hours as needed for wheezing albuterol 108 (90 Base) MCG/ACT inhaler Inhale 2 puffs every 6 hours as needed for wheezing or shortness of breath. 18 g 2 05/03/2025 Active Start: 01-12-2025 take 2 puff(s) by in halation every six hours as needed for wheezing albuterol 108 (90 Base) MCG/ACT inhaler Inhale 2 puffs every 6 hours as needed for wheezing or shortness of breath. 18 g 2 01/12/2025 Active Start: 08-25-2024 take 2 puff(s) by in halation every six hours as needed for wheezing albuterol 108 (90 Base) MCG/ACT inhaler Inhale 2 puffs every 6 hours as needed for wheezing or shortness of breath. 18 g 2 08/25/2024 Active Start: 07-01-2024 take 2 puff(s) by in halation every six hours as needed for wheezing albuterol 108 (90 Base) MCG/ACT inhaler Inhale 2 puffs every 6 hours as needed for wheezing or shortness of breath. 18 g 2 07/01/2024 Active Start: 01-21-2024 take 2 puff(s) by in halation every six hours as needed for wheezing albuterol 108 (90 Base) MCG/ACT inhaler Inhale 2 puffs every 6 hours as needed for wheezing or shortness of breath. 18 g 2 01/21/2024 Active Start: 07-21-2023 take 2 puff(s) by in halation every six hours as needed for wheezing albuterol 108 (90 Base) MCG/ACT inhaler Inhale 2 puffs every 6 hours as needed for wheezing or shortness of breath. 18 g 2 07/21/2023 Active Start: 08-06-2021 take 1 puff(s) by in halation every four hours as needed Albuterol Sulfate Active 2 PUFF INHALATION EVERY 4 HOURS NEEDED 8.5 August 06, 2021 2:41pm Start: 09-17-2020 take 2 puff(s) by in halation every six hours as needed for wheezing albuterol sulfate HFA (VENTOLIN HFA) 108 (90 Base) MCG/ACT inhaler Indications: Panlobular emphysema (HCC) Inhale 2 puffs into the lungs every 6 hours as needed for Wheezing 1 Inhaler 3 09/17/2020 Active Start: 10-23-2019 End: 08-06-2021 take 1 puff(s) by inhalation every four hours as needed Albuterol Sulfate Active 2 PUFF INHALATION EVERY 4 HOURS NEEDED 8.5 August 06, 2021 2:41pm Start: 08-24-2019 take 2 puff(s) by in halation every six hours as needed for wheezing albuterol sulfate HFA (VENTOLIN HFA) 108 (90 Base) MCG/ACT inhaler Inhale 2 puffs into the lungs every 6 hours as needed for Wheezing 1 Inhaler 3 08/24/2019 Active Start: 05-16-2015 End: 07-21-2023 take 2 puff(s) by inhalation every six hours as needed albuterol 108 (90 Base) MCG/ACT inhaler Inhale 2 puffs every 6 hours as needed. 0 05/16/2015 07/21/2023 Discontinued (Reorder) Start: 05-16-2015 take 2 puff(s) by in halation every six hours as needed for wheezing albuterol HFA (VENTOLIN HFA) 90 mcg/actuation inhaler Inhale 2 puffs into the lungs every 6 hours as needed for Wheezing 0 05/16/2015 Active Comment on above: Inhale 2 puffs into the lungs every 6 hours as needed for Wheezing amoxicillin 500 mg / clavulanate 125 mg oral tablet (2 sources) Penicillin-class Antibacterial Start: 2 take 1 tablet by mouth twice daily Amoxicillin-Pot Clavulanate (Augmentin) 500-125 mg tablet Active 1 TABLET PO TWICE A DAY 14 February 07, 2022 12:00am apixaban 5 mg oral tablet (20 sources) Factor Xa Inhibitor Start: take 1 tablet by mouth twice daily apixaban (Eliquis) 5 MG tablet Take 1 tablet (5 mg) by mouth 2 times daily. 60 tablet 5 11/13/2023 Active Start: 04-28-2023 take 1 tablet by cori th twice daily apixaban (Eliquis) 5 MG tablet Take 1 tablet (5 mg) by mouth 2 times daily. 60 tablet 5 04/28/2023 Active Start: 01-11-2022 take 1 tablet by cori th in the morning apixaban (Eliquis) 5 MG tablet Take 5 mg by mouth in the morning and 5 mg in the evening. 0 01/11/2022 Active Start: 07-14-2021 End: 01-03-2022 take 1 tablet by mouth twice daily Apixaban (Eliquis) 5 mg tablet Discontinued 5 MG PO TWICE A DAY 60 August 14, 2021 10:39am December 19, 2021 11:14am Start: 07-11-2021 End: 07-14-2021 Apixaban (Eliquis) 5 mg Tabl et Discontinued 10 MG PO TWICE A DAY July 13, 2021 12:00am July 14, 2021 11:11am 10 mg twice a day for the first week. started 07/11 Then 5 mg twice a day. Start: 04-04-2019 take 1 tablet by cori th twice daily apixaban (ELIQUIS) 5 MG TABS tablet Take 1 tablet by mouth 2 times daily 60 tablet 5 04/04/2019 Active Comment on above: Take 5 mg by mouth t wice daily. aspirin 81 mg oral tablet (16 sources) Platelet Aggregation Inhibitor, Nonsteroidal Anti-inflammatory Drug Start: 12-19-2021 End: 01-03-2022 take 81 mg by mouth once daily Aspirin Active 81 MG PO DAILY 90 January 03, 2022 2:10pm Start: 10-01-2018 aspirin 81 MG EC tablet Take 81 mg by mouth. 0 10/01/2018 Active Comment on above: Take 81 mg by mouth. baclofen 10 mg oral tablet (1 source) gamma-Aminobutyri c Acid-ergic Agonist Start: 05-26-2022 take 1 tablet by mouth three times daily as needed for muscle spasms baclofen (LIORESAL) 10 MG tablet Take 1 tablet by mouth 3 times daily as needed (muscle spasms) 21 tablet 0 05/26/2022 Active 60 actuat budesonide 0.16 mg/actuat / formoterol fumarate 0.0045 mg/actuat metered dose inhaler (20 sources) Corticosteroid, beta2-Adrenergic Agonist Start: 10-09-2022 End: 01-25-2026 take 2 puff(s) by inhalation in the morning budesonide-formoter ol (Symbicort) 160-4.5 MCG/ACT inhaler Inhale 2 puffs in the morning and 2 puffs in the evening. Rinse mouth with water after use to reduce aftertaste and incidence of candidiasis. Do not swallow.. 1 each 2 10/09/2022 01/25/2026 Active Start: 05-09-2021 End: 01-21-2022 budesonide-formoterol (SYMBI TANYA) 160-4.5 mcg/actuation inhaler Inhale 2 Puffs as instructed. 0 05/09/2021 01/21/2022 Discontinued (Other) Start: 02-05-2021 take 1 puff(s) by in halation twice daily Budesonide-Formoterol Active 2 PUFF INHALATION TWICE A DAY February 05, 2021 5:53pm Start: 02-05-2021 take 1 puff(s) by in halation twice daily Budesonide-Formoterol Active 2 PUFF INHALATION TWICE A DAY February 05, 2021 12:00am Start: 08-24-2019 take 2 puff(s) by in halation twice daily budesonide-formoterol (SYMBICORT) 160-4.5 MCG/ACT AERO Indications: Pulmonary emphysema, unspecified emphysema type (HCC) Inhale 2 puffs into the lungs 2 times daily 1 Inhaler 3 08/24/2019 Active Comment on above: Inhale 2 Puffs as in structed. clonazePAM 2 mg oral tablet (20 sources) Benzodiazepine Start: End: take 1 tablet by mouth twice daily as needed for anxiety clonazePAM (KlonoPIN) 2 MG tablet Indications: Anxiety Take 1 tablet (2 mg) by mouth 2 times daily as needed for anxiety. 60 tablet 07/03/2025 Active Start: 03-09-2025 End: 04-06-2025 take 1 tablet by mouth twice daily as needed for anxiety clonazePAM (KlonoPIN) 2 MG tablet Indications: Anxiety Take 1 tablet (2 mg) by mouth 2 times daily as needed for anxiety. 60 tablet 04/07/2025 Active Start: 01-14-2025 End: 02-07-2025 clonazePAM (KlonoPIN) 2 MG t ablet Indications: Anxiety Take 1 tablet (2 mg) by mouth 2 times daily as needed for anxiety. Do not start before January 14, 2025. 60 tablet 01/14/2025 02/07/2025 Discontinued (Reorder) Start: 09-22-2024 take 1 tablet by cori th twice daily as needed for anxiety clonazePAM (KlonoPIN) 2 MG tablet Indications: Anxiety Take 1 tablet (2 mg) by mouth 2 times daily as needed for anxiety. 60 tablet 10/21/2024 Active Start: 07-01-2024 End: 07-26-2024 take 1 tablet by mouth twice daily as needed for anxiety clonazePAM (KlonoPIN) 2 MG tablet Indications: Anxiety Take 1 tablet (2 mg) by mouth 2 times daily as needed for anxiety. 60 tablet 07/26/2024 Active Start: 04-08-2024 End: 05-05-2024 take 1 tablet by mouth twice daily as needed for anxiety clonazePAM (KlonoPIN) 2 MG tablet Indications: Anxiety Take 1 tablet (2 mg) by mouth 2 times daily as needed for anxiety. 60 tablet 05/06/2024 Active Start: 02-11-2024 End: 03-11-2024 take 1 tablet by mouth twice daily as needed for anxiety clonazePAM (KlonoPIN) 2 MG tablet Indications: Anxiety Take 1 tablet (2 mg) by mouth 2 times daily as needed for anxiety. 60 tablet 03/11/2024 Active Start: 11-13-2023 End: 12-14-2023 take 1 tablet by mouth twice daily as needed for anxiety clonazePAM (KlonoPIN) 2 MG tablet Indications: Anxiety Take 1 tablet (2 mg) by mouth 2 times daily as needed for anxiety. 60 tablet 0 12/14/2023 Active Start: 06-24-2023 End: 07-21-2023 take 1 tablet by mouth twice daily as needed for anxiety clonazePAM (KlonoPIN) 2 MG tablet Indications: Anxiety Take 1 tablet (2 mg) by mouth 2 times daily as needed for anxiety. 60 tablet 0 07/21/2023 Active Start: 04-28-2023 End: 05-27-2023 take 1 tablet by mouth twice daily as needed for anxiety clonazePAM (KlonoPIN) 2 MG tablet Indications: Anxiety Take 1 tablet (2 mg) by mouth 2 times daily as needed for anxiety. 60 tablet 0 04/28/2023 05/27/2023 Discontinued Start: 02-03-2023 End: 04-01-2023 take 1 tablet by mouth twice daily as needed for anxiety clonazePAM (KlonoPIN) 2 MG tablet Indications: Anxiety Take 1 tablet (2 mg) by mouth 2 times daily as needed for anxiety. 60 tablet 0 03/02/2023 03/30/2023 Discontinued Start: 10-09-2022 End: 01-05-2023 take 1 tablet by mouth twice daily for anxiety clonazePAM (KlonoPIN) 2 MG tablet Indications: Anxiety take 1 tablet by mouth twice a day if needed for anxiety 60 tablet 0 11/04/2022 Active Start: 10-09-2022 take 1 tablet by cori th twice daily for anxiety clonazePAM (KlonoPIN) 2 MG tablet Indications: Anxiety take 1 tablet by mouth twice a day if needed for anxiety 60 tablet 0 10/09/2022 Active Start: 09-11-2022 End: 10-06-2022 take 1 tablet by mouth twice daily as needed for anxiety clonazePAM (KlonoPIN) 2 MG tablet Indications: Anxiety Take 1 tablet (2 mg) by mouth 2 times daily as needed for anxiety. Do not start before September 11, 2022. 60 tablet 0 09/11/2022 10/06/2022 Discontinued Start: 08-12-2022 End: 09-05-2022 take 1 tablet by mouth twice daily as needed for anxiety clonazePAM (KlonoPIN) 2 MG tablet Indications: Anxiety Take 1 tablet (2 mg) by mouth 2 times daily as needed for anxiety. Do not start before August 12, 2022. 60 tablet 0 08/12/2022 09/05/2022 Discontinued (Reorder) Start: 08-27-2021 End: 06-16-2022 take 2 mg by mouth twice daily Clonazepam Active 2 MG PO TWICE A DAY December 18, 2021 12:00am Start: 09-17-2020 take 1 tablet by cori twice daily clonazePAM (KLONOPIN) 2 MG tablet Indications: Anxiety take 1 tablet by mouth twice a day if needed 60 tablet 3 09/17/2020 Active Start: 03-06-2020 End: 04-05-2020 take 1 tablet by mouth twice daily clonazePAM (KLONOPIN) 2 MG tablet Indications: Anxiety take 1 tablet by mouth twice a day if needed 60 tablet 2 03/06/2020 04/05/2020 Active Start: 01-10-2020 End: 02-09-2020 take 1 tablet by mouth twice daily clonazePAM (KLONOPIN) 2 MG tablet Indications: Anxiety take 1 tablet by mouth twice a day if needed 60 tablet 0 01/10/2020 02/09/2020 Active Start: 04-19-2019 End: 02-05-2021 take 2 mg by mouth twice daily Clonazepam Discontinued 2 MG PO TWICE A DAY April 19, 2019 12:00am February 05, 2021 5:54pm Comment on above: Take 2 mg by mouth t wice daily as needed for anxiety. Compression Stockings MISC (7 sources) Start: 09-15-19 20 Compression Stockings MISC Indications: Claudication (HCC) , Varicose veins of both lower extremities with inflammation by Does not apply route Bilateral, sized to fit, 20-30 mmHg 1 each 0 09/15/2019 Active cyclobenzaprine hydrochloride 10 mg oral tablet (3 sources) Muscle Relaxant Start: 05-24-20 End: 06-03-20 take 1 tablet by mouth three times daily as needed for muscle spasms cyclobenzaprine (FLEXERIL) 10 MG tablet Take 1 tablet by mouth 3 times daily as needed for Muscle spasms 15 tablet 0 05/24/2022 06/03/2022 Active Start: 12-20-2020 End: 12-30-2020 take 1 tablet by mouth three times daily as needed for muscle spasms cyclobenzaprine (FLEXERIL) 10 MG tablet Take 1 tablet by mouth 3 times daily as needed for Muscle spasms 21 tablet 0 12/20/2020 12/30/2020 Active dronedarone 400 mg oral tablet (20 sources) Antiarrhythmic Start: 06-03-2021 End: 08-06-2021 take 1 tablet by mouth twice daily at mealtime Dronedarone (Multaq) 400 mg tablet Active 400 MG PO TWICE A DAY 60 August 14, 2021 11:05am must administer with a meal/food Start: 06-03-2021 End: 08-14-2021 take 1 tablet by mouth once daily at mealtime Dronedarone (Multaq) 400 mg tablet Discontinued 400 MG PO DAILY 60 August 14, 2021 10:38am August 14, 2021 11:06am must administer with a meal/food Start: 06-14-2020 take 1 tablet by cori th twice daily at mealtime dronedarone hcl (MULTAQ) 400 MG TABS Take 1 tablet by mouth 2 times daily (with meals) 60 tablet 5 06/14/2020 Active Comment on above: Take 1 tablet by cori th twice daily with meals. DULoxetine 30 mg delayed release oral capsule (4 sources) Serotonin and Norepinephrine Reuptake Inhibitor Start: take 1 capsule by mouth once daily DULoxetine (CYMBALTA) 30 MG extended release capsule Indications: Anxiety Take 1 capsule by mouth daily 30 capsule 3 01/31/2020 Active Elastic Bandages & Supports MISC (7 sources) Start: Elastic Bandages & Supports MISC Indications: Varicose veins of both lower extremities with inflammation 20-30 mmHg knee-high compression stockings 1 each 1 10/05/2019 Active ergocalciferol 57164 unt oral capsule (3 sources) Provitamin D2 Compound Start: take 1 capsule by mouth every week ergocalciferol (ERGOCALCIFEROL) 1.25 MG (07874 UT) capsule Take 1 capsule by mouth once a week 4 capsule 3 02/01/2020 Active ezetimibe 10 mg oral tablet (3 sources) Dietary Cholesterol Absorption Inhibitor Start: take 1 tablet by mouth once daily ezetimibe (ZETIA) 10 MG tablet Take 1 tablet by mouth daily 90 tablet 1 03/15/2020 Active Fluticasone-Umeclidin -Vilant (TRELEGY ELLIPTA) 200-62.5-25 MCG/INH AEPB (2 sources) Start: take 1 puff(s) by inhalation once daily Fluticasone-Umeclidi n-Vilant (TRELEGY ELLIPTA) 200-62.5-25 MCG/INH AEPB Inhale 1 puff into the lungs daily 1 each 5 03/20/2022 Active gabapentin 600 mg oral tablet (3 sources) Anti-epileptic Agent Start: take 1 tablet by mouth three times daily gabapentin (NEURONTIN) 600 MG tablet Indications: Spinal stenosis, unspecified spinal region take 1 tablet by mouth three times a day for 30 DAYS 90 tablet 3 09/17/2020 Active Start: 01-30-2020 End: 03-21-2020 take 1 tablet by mouth three times daily gabapentin (NEURONTIN) 600 MG tablet Indications: Spinal stenosis, unspecified spinal region take 1 tablet by mouth three times a day for 30 DAYS 90 tablet 3 02/20/2020 03/21/2020 Active ibuprofen 600 mg oral tablet (2 sources) Nonsteroidal Anti-inflammatory Drug Start: 05-28-2022 End: 06-27-2022 take 1 tablet by mouth three times daily as needed for pain ibuprofen (ADVIL;MOTRIN) 600 MG tablet Take 1 tablet by mouth 3 times daily as needed for Pain 90 tablet 0 05/28/2022 06/27/2022 Active Start: 10-08-2021 End: 01-21-2022 take 1 tablet by mouth three times daily ibuprofen (MOTRIN) 600 mg tablet take 1 tablet by mouth three times a day for 5 days 0 10/08/2021 01/21/2022 Discontinued (Other) Comment on above: take 1 tablet by cori th three times a day for 5 days 24 hr metoprolol succinate 100 mg extended release oral tablet (20 sources) beta-Adrenergic Fariba Start: 05-03-2025 take 1 tablet by mouth once daily metoprolol succinate XL (Toprol-XL) 100 MG 24 hr tablet Take 1 tablet (100 mg) by mouth daily. Do not crush or chew. 90 tablet 1 05/03/2025 Active Start: 11-17-2024 take 1 tablet by cori th once daily metoprolol succinate XL (Toprol-XL) 100 MG 24 hr tablet Take 1 tablet (100 mg) by mouth daily. Do not crush or chew. 90 tablet 1 11/17/2024 Active Start: 07-01-2024 take 1 tablet by cori th once daily metoprolol succinate XL (Toprol-XL) 100 MG 24 hr tablet Take 1 tablet (100 mg) by mouth daily. Do not crush or chew. 90 tablet 1 07/01/2024 Active Start: 08-19-2023 take 1 tablet by cori th once daily metoprolol succinate XL (Toprol-XL) 100 MG 24 hr tablet Take 1 tablet (100 mg) by mouth daily. Do not crush or chew. 90 tablet 1 08/19/2023 Active Start: 09-09-2022 End: 03-30-2023 take 1 tablet by mouth once daily metoprolol succinate XL (Toprol-XL) 100 MG 24 hr tablet Take 1 tablet (100 mg) by mouth daily. Do not crush or chew. 90 tablet 1 03/30/2023 Active Start: 03-19-2022 take 1 tablet by cori th once daily metoprolol succinate (TOPROL XL) 100 MG extended release tablet Take 1 tablet by mouth daily 90 tablet 1 03/19/2022 Active Start: 01-11-2022 End: 09-09-2022 take 1 tablet by mouth in the morning metoprolol tartrate (Lopressor) 100 MG tablet Take 100 mg by mouth in the morning and 100 mg in the evening. 0 01/11/2022 09/09/2022 Discontinued Start: 12-19-2021 End: 01-03-2022 take 100 mg by mouth twice daily Metoprolol Tartrate Active 100 MG PO TWICE A DAY 180 January 03, 2022 2:10pm Start: 07-14-2021 End: 08-06-2021 take 50 mg by mouth twice daily Metoprolol Succinate Discontinued 50 MG PO TWICE A DAY 60 July 14, 2021 12:00am August 06, 2021 2:02pm Start: 05-23-2019 take 1 tablet by cori th once daily metoprolol succinate (TOPROL XL) 50 MG extended release tablet take 1 tablet by mouth once daily 90 tablet 3 05/23/2019 Active Start: 04-04-2019 End: 01-21-2022 take 100 mg by mouth once daily Metoprolol Succinate Discontinued 100 MG PO DAILY December 18, 2021 12:00am December 19, 2021 11:07am Comment on above: Take 100 mg by mouth twice daily. Take 100 mg by mouth once daily. nabumetone 500 mg oral tablet (1 source) Nonsteroidal Anti-inflammatory Drug Start: 05-26-20 take 1 tablet by mouth twice daily nabumetone (RELAFEN) 500 MG tablet Take 1 tablet by mouth 2 times daily 30 tablet 0 05/26/2022 Active nitroglycerin 0.4 mg sublingual tablet (7 sources) Nitrate Vasodilator Start: 05-14-20 End: 01-22-20 nitroGLYCERIN (NITROSTAT) 0.[address] 1 tablet under the tongue every 5 minutes as needed for Chest pain up to max of 3 total doses. If no relief after 1 dose, call 911. 25 tablet 3 03/13/2020 Active Comment on above: Dissolve 0.4 mg unde r the tongue. perflutren lipid microspheres 1.3 mL in NaCl (PF) 0.9% 10 mL injection (DEFINITY) (1 source) Start: 02-20-20 End: 05-21-20 perflutren lipid microspheres 1.3 mL in NaCl (PF) 0.9% 10 mL injection (DEFINITY) predniSONE 50 mg oral tablet (1 source) Start: 05-28-20 End: 06-02-20 take 1 tablet by mouth once daily predniSONE (DELTASONE) 50 MG tablet Take 1 tablet by mouth daily for 5 days 5 tablet 0 05/28/2022 06/02/2022 Active pregabalin 75 mg oral capsule (20 sources) Start: 03-16-20 End: 07-14-20 take 1 capsule by mouth twice daily pregabalin (Lyrica) 75 MG capsule Indications: Neuropathy Take 1 capsule (75 mg) by mouth 2 times daily. 60 capsule 06/14/2025 07/14/2025 Active Start: 01-19-2025 End: 02-18-2025 take 1 capsule by mouth twice daily pregabalin (Lyrica) 75 MG capsule Indications: Neuropathy Take 1 capsule (75 mg) by mouth 2 times daily. 60 capsule 01/19/2025 02/14/2025 Discontinued (Reorder) Start: 08-30-2024 End: 11-25-2024 take 1 capsule by mouth twice daily pregabalin (Lyrica) 75 MG capsule Indications: Neuropathy Take 1 capsule (75 mg) by mouth 2 times daily. 60 capsule 09/26/2024 10/26/2024 Discontinued (Reorder) Start: 07-07-2024 End: 08-06-2024 take 1 capsule by mouth twice daily pregabalin (Lyrica) 75 MG capsule Indications: Neuropathy Take 1 capsule (75 mg) by mouth 2 times daily. 60 capsule 07/07/2024 08/06/2024 Active Start: 04-15-2024 End: 06-11-2024 take 1 capsule by mouth twice daily pregabalin (Lyrica) 75 MG capsule Indications: Neuropathy Take 1 capsule (75 mg) by mouth 2 times daily. 60 capsule 05/12/2024 06/11/2024 Active Start: 02-19-2024 End: 03-20-2024 take 1 capsule by mouth twice daily pregabalin (Lyrica) 75 MG capsule Indications: Neuropathy Take 1 capsule (75 mg) by mouth 2 times daily. 60 capsule 02/19/2024 03/20/2024 Active Start: 12-23-2023 End: 01-22-2024 take 1 capsule by mouth twice daily pregabalin (Lyrica) 75 MG capsule Indications: Neuropathy Take 1 capsule (75 mg) by mouth 2 times daily. 60 capsule 0 12/23/2023 01/22/2024 Active Start: 01-17-2021 End: 01-21-2022 pregabalin (LYRICA) 75 mg ca psule Take 75 mg by mouth. 0 01/17/2021 01/21/2022 Discontinued (Other) Comment on above: Take 75 mg by mouth. rosuvastatin calcium 5 mg oral tablet (15 sources) HMG-CoA Reductase Inhibitor Start: take 1 tablet by mouth once daily rosuvastatin (Crestor) 5 MG tablet Take 1 tablet (5 mg) by mouth daily. 90 tablet 1 03/09/2025 Active Start: 09-22-2024 take 1 tablet by cori th once daily rosuvastatin (Crestor) 5 MG tablet Take 1 tablet (5 mg) by mouth daily. 90 tablet 1 09/22/2024 Active 5 ml sodium chloride 9 mg/ml injection (9 sources) Start: 02-19-2022 End: 05-21-2023 sodium chloride 0.9% (NS) 0. 9 % flush Infuse 10 mL into a venous catheter. 0 02/19/2022 05/21/2023 Active Start: 02-19-2022 End: 05-21-2023 sodium chloride 0.9 % (flush ) 10 mL (BD POSIFLUSH) Start: 12-20-2020 End: 12-20-2020 0.9 % sodium chloride bolus traMADol hydrochloride 50 mg oral tablet (20 sources) Opioid Agonist Start: 12-24-2021 traMADol (Ultr am) 50 MG tablet Take 50 mg by mouth. 0 12/24/2021 Active Start: 04-27-2020 End: 05-27-2020 take 1 tablet by mouth twice daily traMADol (ULTRAM) 50 MG tablet Indications: Varicose veins of both lower extremities with inflammation Take 1 tablet by mouth 2 times daily for 30 days. 60 tablet 0 04/27/2020 05/27/2020 Active Start: 04-19-2019 End: 04-11-2020 take 1 tablet by mouth twice daily traMADol (ULTRAM) 50 MG tablet Indications: Varicose veins of both lower extremities with inflammation Take 1 tablet by mouth 2 times daily for 30 days. 60 tablet 0 03/12/2020 04/11/2020 Active Comment on above: Take 50 mg by mouth twice daily. Take 50 mg by mouth twice daily as needed for pain. Completed/Discontinued Medications Medication Drug Class(es) Dates Sig (Normalized) Sig (Original) acetaminophen 500 mg oral tablet (1 source) Start: 12-20-2020 End: 12-20-2020 acetaminophen (TYLENOL) tablet 1,000 mg acetaminophen 325 mg / HYDROcodone bitartrate 5 mg oral tablet (9 sources) Opioid Agonist Start: 06-23-2025 End: 06-23-2025 1 tablet, Oral, Once, On Thu06/23/25 at 1850, For 1 dose, Maximum dose of acetaminophen is 4000 mg from all sources in 24 hours. Start: 06-23-2025 End: 06-28-2025 take 1 tablet by mouth every six hours as needed for pain HYDROcodone-acetaminophen (Baxter) 5-325 MG tablet Indications: Paronychia of finger of right hand Take 1 tablet by mouth every 6 hours as needed for severe pain (7-10) for up to 5 days. 8 tablet 06/23/2025 06/28/2025 Active Start: 10-08-2021 End: 01-21-2022 take 1 tablet by mouth three times daily HYDROcodone-acetaminophen (NORCO) 5-325 mg per tablet take 1 tablet by mouth three times a day for 3 days 0 10/08/2021 01/21/2022 Discontinued (Other) Start: 10-23-2019 End: 10-26-2019 take 1 tablet by mouth every six hours as needed Hydrocodone-Acetaminophen Discontinued 1 TABLET PO EVERY 6 HOURS NEEDED 06 16October 23, 2019 October 26, 2019 1:08am Comment on above: take 1 tablet by cori th three times a day for 3 days alendronic acid 70 mg oral tablet (20 sources) Bisphosphonate Start : 07-09 End: 01-25 take 1 tablet by mouth in the morning alendronate (Fosamax) 70 MG tablet Indications: Osteoporosis, unspecified osteoporosis type, unspecified pathological fracture presence Take 1 tablet (70 mg) by mouth every 7 days. Take in the morning with a full glass of water, on an empty stomach, and do not take anything else by mouth or lie down for the next 30 min. 4 tablet 11 07/09/2023 01/25/2025 Discontinued (Therapy completed) atorvastatin 80 mg oral tablet (6 sources) HMG-CoA Reductase Inhibitor Start : 05-10 End: 01-21 atorvastatin (LIPITOR) 80 mg tablet Take 80 mg by mouth. 0 03/27/2019 01/21/2022 Discontinued (Other) Comment on above: Take 80 mg by mouth. clopidogrel 75 mg oral tablet (11 sources) P2Y12 Platelet Inhibitor Start : 10-01 End: 01-21 take 75 mg by mouth once daily Clopidogrel Discontinued 75 MG PO DAILY October 01, 2018 1:00am July 11, 2021 5:54pm Comment on above: Take 1 tablet by cori th once daily. wiadhvmzchq-zgxfgsnni-ugn anter (TRELEGY ELLIPTA) 200-62.5-25 mcg inhalation powder (1 source) Start : 10-01 End: 01-21 spjcqwwvyhc-sqlhuyhjd-ff lanter (TRELEGY ELLIPTA) 200-62.5-25 mcg inhalation powder Inhale 1 Puff as instructed. 0 10/01/2021 01/21/2022 Discontinued (Other) Comment on above: Inhale 1 Puff as ins tructed. furosemide 20 mg oral tablet (1 source) Loop Diuretic End: 01-21 take 1 tablet by mouth once daily furosemide (LASIX) 20 mg tablet Take 20 mg by mouth once daily. 0 01/21/2022 Discontinued (Other) Comment on above: Take 20 mg by mouth once daily. hydroCHLOROthiazide 25 mg oral tablet (20 sources) Thiazide Diuretic Start : 12-30 End: 01-25 take 1 tablet by mouth once daily hydroCHLOROthiazide (HYDRODiuril) 25 MG tablet Take 1 tablet (25 mg) by mouth daily. 90 tablet 1 12/30/2022 01/25/2025 Discontinued (Therapy completed) Start: 03-19-2022 take 0.5 tablet by m outh once daily in the morning hydroCHLOROthiazide (HYDRODIURIL) 25 MG tablet take 1/2 tablet by mouth every morning 90 tablet 3 03/19/2022 Active Start: 02-05-2021 End: 02-07-2022 take 25 mg by mouth once daily Hydrochlorothiazide Discontinued 25 MG PO DAILY 90 August 06, 2021 2:41pm February 07, 2022 12:17pm Start: 06-06-2020 take 0.5 tablet by m outh once daily in the morning hydroCHLOROthiazide (HYDRODIURIL) 25 MG tablet take 1/2 tablet by mouth every morning 90 tablet 3 06/06/2020 Active Start: 06-28-2019 End: 11-17-2019 take 25 mg by mouth once daily Hydrochlorothiazide Discontinued 25 MG PO DAILY October 23, 2019 1:00am November 17, 2019 12:40pm Comment on above: Take 25 mg by mouth once daily. 1 ml HYDROmorphone hydrochloride 1 mg/ml cartridge (2 sources) Opioid Agonist Start: 01-24-2023 End: 01-24-2023 HYDROmorphone (Dilaudid) injection 1 mg 1 ml ketorolac tromethamine 30 mg/ml cartridge (2 sources) Nonsteroidal Anti-inflammatory Drug, Cyclooxygenase Inhibitor Start: 05-28-2022 End: 05-28-2022 ketorolac (TORADOL) injection 30 mg Start: 12-20-2020 End: 12-20-2020 ketorolac (TORADOL) injectio n 15 mg 10 ml lidocaine hydrochloride 10 mg/ml injection (4 sources) Antiarrhythmic, Amide Local Anesthetic Start: 06-23-2025 End: 06-23-2025 5 mL, Infiltration, Once, On Thu06/23/25 at 1815, For 1 dose Start: 05-24-2022 End: 06-03-2022 lidocaine (LIDODERM) 5 % Dora ce 1 patch onto the skin daily for 10 days 12 hours on, 12 hours off. 10 patch 0 05/24/2022 06/03/2022 Active lisinopril 20 mg oral tablet (20 sources) Angiotensin Converting Enzyme Inhibitor Start: 12-30-2022 End: 01-25-2025 take 1 tablet by mouth once daily lisinopril 20 MG tablet Take 1 tablet (20 mg) by mouth daily. 90 tablet 1 03/30/2023 01/25/2025 Discontinued (Therapy completed) Start: 09-17-2020 take 1 tablet by cori th in the morning lisinopril 20 MG tablet Take 1 tablet by mouth in the morning. 0 09/17/2020 Active Start: 06-28-2019 take 2 tablets by mo uth once daily lisinopril (PRINIVIL;ZESTRIL) 20 MG tablet Take 2 tablets by mouth daily 90 tablet 3 06/28/2019 Active Comment on above: Take 1 tablet by cori th once daily. naproxen sodium 220 mg oral capsule (1 source) Nonsteroidal Anti-inflammatory Drug End: naproxen sodium 220 mg cap Take by mouth as needed. 0 01/21/2022 Discontinued (Other) Comment on above: Take by mouth as nee ded. ondansetron 4 mg disintegrating oral tablet (2 sources) Serotonin-3 Receptor Antagonist Start: 023 End: 023 ondansetron ODT (Zofran-ODT) disintegrating tablet 4 mg 2 ml orphenadrine citrate 30 mg/ml injection (1 source) Muscle Relaxant Start: 021 End: orphenadrine (NORFLEX) injection 60 mg sulfamethoxazole 800 mg / trimethoprim 160 mg oral tablet (4 sources) Dihydrofolate Reductase Inhibitor Antibacterial, Sulfonamide Antimicrobial Start: 025 End: 025 take 1 tablet by mouth once 1 tablet, Oral, Once, On Thu06/23/25 at 1850, For 1 dose, Suspected Indication (Select all that apply): Skin and Soft Tissue Infection Start: 06-23-2025 End: 06-28-2025 take 1 tablet by mouth twice daily sulfamethoxazole-trimethoprim (Bactrim D S) 800-160 MG tablet Take 1 tablet by mouth 2 times daily for 5 days. 10 tablet 06/23/2025 06/28/2025 Active Problems Active Problems Problem Classification Problem Date Documented Da te Episodic/Chronic Acute myocardial infarction (20 sources) ST elevation (STEMI) myocardial infarction of unspecified site; Translations: [ST elevation (STEMI) myocardial infarction involving other coronary artery of inferior wall] Onset: 04-14-2018 05-10-2018 Chronic Allergic reactions (4 sources) Allergy status to other antibiotic agents status; Translations: [Allergy status to other drugs, medicaments and biological substances status] Onset: 05-28-2022 Episodic Anxiety disorders (20 sources) Anxiety; Translations: [Anxiety disorder, unspecified] Onset: 01-28-2017 01-28-2017 Chronic Cardiac dysrhythmias (20 sources) Atrial fibrillation; Translations: [Paroxysmal atrial fibrillation] Onset: 10-14-2018 10-14-2018 Chronic Chronic obstructive pulmonary disease and bronchiectasis (20 sources) Chronic obstructive pulmonary disease, unspecified; Translations: [Chronic obstructive lung disease] Onset: 01-08-2016 01-08-2016 Chronic Chronic obstructive pulmonary disease and bronchiectasis (20 sources) Chronic obstructive pulmonary disease and bronchiectasis Onset: 08-12-2022 08-12-2022 Coronary atherosclerosis and other heart disease (20 sources) 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; Translations: [Chronic total occlusion of coronary artery] Onset: 05-08-2018 05-10-2018 Chronic Disorders of lipid metabolism (20 sources) Hyperlipidemia, unspecified; Translations: [Pure hypercholesterolemia] Onset: 05-08-2018 05-10-2018 Chronic Diverticulosis and diverticulitis (4 sources) Diverticulitis of sigmoid colon; Translations: [Diverticulitis of large intestine without perforation or abscess without bleeding] Chronic Esophageal disorders (4 sources) Gastro-esophageal reflux disease without esophagitis; Translations: [Gastro-esophageal reflux disease without esophagitis] Onset: 05-08-2018 Chronic Esophageal disorders (4 sources) Esophagitis; Translations: [Esophagitis] Episodic Essential hypertension (20 sources) Essential (primary) hypertension; Translations: [Essential hypertension] Onset: 01-07-2016 01-07-2016 Chronic Heart valve disorders (20 sources) Non-rheumatic mitral regurgitation ; Translations: [Nonrheumatic mitral (valve) insufficiency] Onset: 09-18-2021 01-21-2022 Chronic Lymphadenitis (2 sources) Localized enlarged lymph nodes; Translations: [Localized enlarged lymph nodes] Onset: 05-24-2022 Episodic Malaise and fatigue (1 source) Fatigue; Translations: [Chronic fatigue] Episodic Mood disorders (20 sources) Depressive disorder; Translations: [Depressive disorder] Onset: 01-06-2017 05-10-2018 Chronic Nausea and vomiting (10 sources) Nausea; Translations: [Nausea] Onset: 01-29-2022 Episodic Nonspecific chest pain (13 sources) Chest pain; Translations: [Chest pain, unspecified] Episodic Nutritional deficiencies (2 sources) Vitamin D deficiency; Translations: [Vitamin D deficiency] Chronic Nutritional deficiencies (1 source) Cobalamin deficiency; Translations: [B12 deficiency] Episodic Osteoarthritis (20 sources) Arthritis; Translations: [Unspecified osteoarthritis, unspecified site] Onset: 12-23-2023 12-23-2023 Chronic Osteoporosis (20 sources) Senile osteoporosis; Translations: [Age-related osteoporosis without current pathological fracture] Onset: 09-04-2017 09-04-2017 Chronic Other aftercare (2 sources) photo checker and assembler (current) use of aspirin; Translations: [half-way (current) use of aspirin] Onset: 05-08-2018 Episodic Other aftercare (2 sources) Other vice president business development (current) drug therapy; Translations: [Other vice president business development (current) drug therapy] Onset: 05-28-2022 Episodic Other aftercare (2 sources) half-way (current) use of anticoagulants; Translations: [half-way (current) use of anticoagulants] Onset: 05-28-2022 Episodic Other aftercare (1 source) Prescribed medication regimen behavior finding; Translations: [Other intermediate (current) drug therapy] 03-02-2023 Episodic Other and ill-defined heart disease (4 sources) Left atrial enlargement; Translations: [Cardiomegaly] Chronic Other circulatory disease (20 sources) History of angioplasty; Translations: [Peripheral vascular angioplasty status with implants and grafts] Onset: 04-04-2019 Chronic Other circulatory disease (2 sources) Low blood pressure; Translations: [Hypotension, unspecified] Episodic Other circulatory disease (2 sources) Hypotension, unspecified; Translations: [Hypotension, unspecified] Episodic Other fractures (2 sources) Compression fracture of lumbar spine; Translations: [Wedge compression fracture of first lumbar vertebra, initial encounter for closed fracture] Episodic Other gastrointestinal disorders (20 sources) Irritable bowel syndrome; Translations: [Irritable bowel syndrome without diarrhea] Onset: 08-28-2021 08-28-2021 Chronic Other hereditary and degenerative nervous system conditions (4 sources) Myoclonus; Translations: [Myoclonus] Onset: 05-08-2018 Chronic Other hereditary and degenerative nervous system conditions (20 sources) Myoclonic disorder; Translations: [Myoclonus] Onset: 05-10-2018 05-10-2018 Chronic Other lower respiratory disease (1 source) Dyspnea; Translations: [Dyspnea, unspecified] Episodic Other nervous system disorders (20 sources) Neuropathy; Translations: [Polyneuropathy, unspecified] Onset: 08-28-2021 08-28-2021 Chronic Other nervous system disorders (2 sources) Polyneuropathy, unspecified; Translations: [Polyneuropathy, unspecified] Onset: 06-30-2022 Chronic Other non-traumatic joint disorders (2 sources) Hip pain; Translations: [Pain in left hip] Episodic Other upper respiratory infections (1 source) Viral upper respiratory tract infection; Translations: [Acute upper respiratory infection, unspecified] 05-25-2023 Episodic Peripheral and visceral atherosclerosis (20 sources) Intermittent claudication; Translations: [Peripheral vascular disease, unspecified] Onset: 08-24-2019 08-24-2019 Chronic Pulmonary heart disease (20 sources) Secondary pulmonary hypertension; Translations: [Secondary pulmonary hypertension] Onset: 08-28-2021 08-28-2021 Chronic Residual codes; unclassified (2 sources) Edema of lower extremity; Translations: [Bilateral lower extremity edema] Episodic Residual codes; unclassified (9 sources) Tobacco user; Translations: [Tobacco use] Onset: 08-28-2021 Episodic Residual codes; unclassified (2 sources) H/O cardiac surgery; Translations: [Other specified postprocedural states] Onset: 02-03-2022 02-04-2022 Episodic Residual codes; unclassified (2 sources) Menopause present; Translations: [Asymptomatic menopausal state] 07-07-2023 Episodic Residual codes; unclassified (1 source) Influenza vaccination declined; Translations: [Immunization not carried out because of patient refusal] 07-26-2024 Episodic Skin and subcutaneous tissue infections (4 sources) Paronychia of finger of right hand; Translations: [Cellulitis of right finger] Onset: 06-23-2025 06-23-2025 Episodic Substance-related disorders (20 sources) Nicotine dependence, cigarettes, uncomplicated; Translations: [Smoker] Onset: 05-08-2018 05-10-2018 Chronic Suicide and intentional self-inflicted injury (2 sources) Suicidal ideations; Translations: [Suicidal ideations] Onset: 05-08-2018 Episodic Thyroid disorders (20 sources) Nontoxic single thyroid nodule; Translations: [Thyroid nodule] Onset: 05-28-2015 05-28-2015 Chronic Unclassified (20 sources) Nodule of lung; Translations: [Lung nodule < 6cm on CT] Onset: 01-08-2016 06-30-2022 Unclassified (20 sources) Inability to perform ADLs Onset: 08-12-2022 08-12-2022 Unclassified (20 sources) Hospital admissions Onset: 08-12-2022 08-12-2022 Unclassified (20 sources) Medication Adherence Onset: 08-12-2022 08-12-2022 Unclassified (20 sources) Use of tobacco products Onset: 08-12-2022 08-12-2022 Unclassified (20 sources) Patient Stated Goal Onset: 08-12-2022 08-12-2022 Unclassified (2 sources) Blood Work; Translations: [Blood Work] Onset: 08-29-2024 Past or Other Problems Problem Classification Problem Date Documented Da te Episodic/Chronic Abdominal hernia (20 sources) Hiatal hernia; Translations: [Diaphragmatic hernia without obstruction or gangrene] Onset: 09-04-2017 09-04-2017 Episodic Cardiac dysrhythmias (20 sources) Palpitations; Translations: [Palpitations] Onset: 09-18-2021 Episodic Conditions associated with dizziness or vertigo (11 sources) Lightheadedness; Translations: [Dizziness and giddiness] Onset: 01-29-2022 Episodic Coronary atherosclerosis and other heart disease (4 sources) Presence of coronary angioplasty implant and graft; Translations: [Percutaneous transluminal coronary angioplasty status] Onset: 05-08-2018 Episodic Deficiency and other anemia (20 sources) Anemia; Translations: [Anemia, unspecified] Onset: 09-18-2021 09-18-2021 Episodic Mood disorders (20 sources) Major depressive disorder, single episode, unspecified; Translations: [Mood disorders] Onset: 12-30-2022 Resolved: 07-26-2024 12-30-2022 Other acquired deformities (20 sources) Compression fracture of vertebral column; Translations: [Deforming dorsopathy, unspecified] Onset: 01-24-2023 01-28-2023 Episodic Other aftercare (5 sources) Long-term current use of drug therapy; Translations: [Other intermediate (current) drug therapy] Onset: 08-28-2021 Episodic Other aftercare (5 sources) Long-term current use of anticoagulant; Translations: [photo checker and assembler (current) use of anticoagulants] Onset: 08-28-2021 Episodic Other bone disease and musculoskeletal deformities (20 sources) Costal chondritis; Translations: [Chondrocostal junction syndrome [Tietze]] Onset: 11-20-2015 11-20-2015 Episodic Other circulatory disease (6 sources) History of angioplasty; Translations: [S/P angioplasty with stent] Onset: 04-04-2019 04-04-2019 Episodic Other circulatory disease (20 sources) H/O: heart disorder; Translations: [Personal history of other diseases of the circulatory system] Onset: 09-18-2021 09-18-2021 Episodic Other connective tissue disease (20 sources) Fibromyalgia; Translations: [Fibromyalgia] Onset: 09-18-2021 01-21-2022 Episodic Other connective tissue disease (13 sources) Ganglion cyst of left wrist; Translations: [Ganglion, left wrist] Onset: 01-25-2025 01-25-2025 Episodic Other connective tissue disease (1 source) Fibromyalgia; Translations: [Fibromyalgia] Onset: 06-30-2022 Episodic Other connective tissue disease (2 sources) Ganglion, left wrist; Translations: [Ganglion, left wrist] Onset: 01-25-2025 Episodic Other hematologic conditions (2 sources) Raised cardiac enzyme or marker; Translations: [Other specified abnormalities of plasma proteins] Onset: 02-06-2022 Episodic Other hematologic conditions (3 sources) Other specified abnormalities of plasma proteins; Translations: [Other abnormal blood chemistry] Onset: 02-06-2022 Episodic Other lower respiratory disease (5 sources) Lung mass; Translations: [Lung nodule < 6cm on CT] Onset: 01-08-2016 01-08-2016 Episodic Other lower respiratory disease (3 sources) Solitary pulmonary nodule; Translations: [Nodule of lung] Onset: 01-08-2016 01-08-2016 Episodic Other lower respiratory disease (20 sources) Chronic cough; Translations: [Chronic cough] Onset: 12-30-2022 12-30-2022 Episodic Other screening for suspected conditions (not mental disorders or infectious disease) (11 sources) Creatinine level - finding; Translations: [Other specified abnormal findings of blood chemistry] Onset: 01-29-2022 Episodic Other skin disorders (20 sources) Mass of neck; Translations: [Localized swelling, mass and lump, neck] Onset: 12-23-2023 12-23-2023 Episodic Residual codes; unclassified (3 sources) Postoperative state; Translations: [Other specified postprocedural states] Onset: 06-11-2015 Resolved: 06-10-2018 06-10-2018 Episodic Residual codes; unclassified (5 sources) Other specified personal risk factors, not elsewhere classified; Translations: [Other specified personal history presenting hazards to health] Onset: 08-28-2021 Episodic Residual codes; unclassified (2 sources) History of radiofrequency ablation operation for arrhythmia; Translations: [Other specified postprocedural states] Onset: 02-03-2022 Episodic Residual codes; unclassified (2 sources) Immunization not carried out because of patient refusal; Translations: [Immunization not carried out because of patient refusal] Onset: 07-26-2024 Episodic Residual codes; unclassified (5 sources) Postoperative state; Translations: [Post-operative state] Onset: 06-11-2015 Resolved: 06-10-2018 06-10-2018 Spondylosis; intervertebral disc disorders; other back problems (20 sources) Spasm of back muscles; Translations: [Neck pain] Onset: 05-26-2022 Episodic Sprains and strains (20 sources) Strain of back muscle; Translations: [Strain of muscle, fascia and tendon of lower back, initial encounter] Onset: 01-27-2023 01-27-2023 Episodic Results Test Name Value Interpretation Reference Range Facility 36on 07-03-2025 36 Rx sent. [facility]AR[place] repor t reviewed with no discrepancies. CSA needs signed at upcoming appointment on 08/02/2025. Follow up as scheduled. [facility] 36 Csa 07/26/24 [place] [id number] Medication name: clonazePAM (KlonoPIN) Medication dosage: 2mg Monthly quantity needed: 60 How many day supply requestin days Medication route: oral (PO) Medication administration time(s): 2 times a day (BID) If taking medication PRN, reason for taking medication: N/A If this is a controlled substance do you receive this or any other controlled medication from any other doctor or facility: N/A Ordering provider: Dr Duggan Date of last office visit: 01/25/25 Date of next office visit: 08/02/25 Date of last refill: (see medication tab): 06/05/25 Updated/Validated preferred pharmacy: Yes Patient instructed to contact the pharmacy prior to picking up the medication: Yes [facility] ED Nursing Noteon 06-23-2025 ED Nursing Note Patient arrived ambulatory to room 5 without difficulty. Patient complains of pain in right index finger for the past couple of days. Patient denies any injury to finger. [facility] ED Provider Noteon ED Provider Note EMERGENCY DEPARTMENT ENCOUNTER Pt Name: Jonathan Moise Birthdate 1950 Date of evaluation: 06/23/2025 ED Provider: Alexandro Neville MD CHIEF COMPLAINT Chief Complaint Patient presents with Hand Pain Right index HISTORY OF PRESENT ILLNESS (Location/Symptom, Timing/Onset, Context/Setting, Quality, Duration, Modifying Factors, Severity) Note limiting factors. I wore appropriate PPE for the entirety of this encounter. HPI Christy Moise is a 74 y.o. who presents to the emergency department with chief complaint of finger pain. Patient states that she had similar on her right fifth finger but it opened up and drained some white fluid. Now she has redness swelling and pain around the right second finger. Denies any injury. 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 Nursing Notes were reviewed. Limitations to history: None Outside historians: None REVIEW OF SYSTEMS Review of Systems Pertinent positives and negatives as per HPI. PAST MEDICAL HISTORY Medical History[1] SURGICAL HISTORY Surgical History[2] CURRENT MEDICATIONS Previous Medications ALBUTEROL 108 (90 BASE) MCG/ACT INHALER Inhale 2 puffs every 6 hours as needed for wheezing or shortness of breath. APIXABAN (ELIQUIS) 5 MG TABLET Take 1 tablet (5 mg) by mouth 2 times daily. BUDESONIDE-FORMOTEROL (SYMBICORT) 160-4.5 MCG/ACT INHALER Inhale 2 puffs in the morning and 2 puffs in the evening. Rinse mouth with water after use to reduce aftertaste and incidence of candidiasis. Do not swallow.. CLONAZEPAM (KLONOPIN) 2 MG TABLET Take 1 tablet (2 mg) by mouth 2 times daily as needed for anxiety. METOPROLOL SUCCINATE XL (TOPROL-XL) 100 MG 24 HR TABLET Take 1 tablet (100 mg) by mouth daily. Do not crush or chew. PREGABALIN (LYRICA) 75 MG CAPSULE Take 1 capsule (75 mg) by mouth 2 times daily. ROSUVASTATIN (CRESTOR) 5 MG TABLET Take 1 tablet (5 mg) by mouth daily. ALLERGIES Sertraline, Phenytoin, and Levofloxacin FAMILY HISTORY Family History[3] SOCIAL HISTORY Social History[4] SCREENINGS PHYSICAL EXAM ED Triage Vitals [06/23/25 1746] Temp Heart Rate Resp BP 36.4 ?C (97.5 ?F) (!) 108 16 (!) 192/102 SpO2 Temp Source Heart Rate Source Patient Position 95 % Temporal Monitor Sitting BP Location FiO2 (%) Right arm -- General appearance: Well-appearing, no acute distress. Psych: Awake alert and oriented ?3. Pleasant and cooperative. Skin: Warm and dry. Neck: Supple. Extremities: Warm and well perfused. NROM and SILT throughout upper and lower extermities. Right second finger there is erythema swelling tenderness around the eponychium of the right second nail plate. Right fifth finger there is a wound that was previously reportedly draining it appears to be well-healing with no secondary findings of infection. Has some deformities to the DIPs of multiple fingers from arthritis. DIAGNOSTIC RESULTS Interpretation per the Radiologist below, if available at the time of this note: No orders to display ED BEDSIDE ULTRASOUND: Performed by ED Physician - none LABS: Labs Reviewed - No data to display All other labs were within normal range or not returned as of this dictation. EMERGENCY DEPARTMENT COURSE and DIFFERENTIAL DIAGNOSIS/MDM: Vitals: Vitals: 06/23/251745 BP: (!) 192/102 BP Location: Right arm Patient Position: Sitting Pulse: (!) 108 Resp: 16 Temp: 36.4 ?C (97.5 ?F) TempSrc: Temporal SpO2: 95% Weight: 56.7 kg (125 lb) Height: 1.676 m (5' 6") The patient presented with a chief complaint of finger pain. The differential diagnosis associated with this patient's presentation includes paronychia, arthritis. Attempted a bedside drainage of the paronychia. Directed to use warm compresses and soaks. Diagnoses as of 06/23/251856 Paronychia of finger of right hand ED Medications managed: Medications lidocaine (Xylocaine) 1 % injection 5 mL (5 mL Infiltration Given by Other 06/23/251853) HYDROcodone-acetaminoph en (Baxter) 5-325 MG per tablet 1 tablet (1 tablet Oral Given 06/23/251853) sulfamethoxazole-trimet hoprim (Bactrim DS) 800-160 MG per tablet 1 tablet (1 tablet Oral Given 06/23/251853) CRITICAL CARE TIME CONSULTS: None PROCEDURES: Unless otherwise noted below, none Incision and Drainage Performed by: Alexandro Neville MD Authorized by: Alexandro Neville MD Consent: The indications, risks, benefits, alternatives to the procedure were explained to the patient/surrogate decision maker and their questions answered. Consent was obtained to proceed with the procedure. Timeout: Completed immediately prior to the start of the procedure which included verification of the correct patient, correct site and agreement on the procedure to be done. Indications: Indications: abscess Anesthetic: Local anesthetic used: lidocaine without epinephrine Preparation: Patient was pre (more content not included)... [facility] No Panel Informationon 06-23 Alexandro Neville MD 06/23/2025 7:01 PM Incision and Drainage Performed by: Alexandro Neville MD Authorized by: Alexandro Neville MD Consent: The indications, risks, benefits, alternatives to the procedure were explained to the patient/surrogate decision maker and their questions answered. Consent was obtained to proceed with the procedure. Timeout: Completed immediately prior to the start of the procedure which included verification of the correct patient, correct site and agreement on the procedure to be done. Indications: Indications: abscess Anesthetic: Local anesthetic used: lidocaine without epinephrine Preparation: Patient was prepped and draped in usual sterile fashion Skin prepped: skin prepped with alcohol Procedure Details: Procedure Type: abscess Location 1: R index finger Complexity: simple Incision types: stab incision Incision depth: subcutaneous Procedure comments: Attempted to open with the blunt end of the scalpel handle for a paronychia and then made a small incision with small amount of purulent drainage Flexor tendon block performed for anesthesia. Identified landmarks negative aspiration incremental injection with complete anesthesia of the finger Post-procedure: Wound treatment: wound left open Drainage: bloody and purulent Drainage amount: scant Estimated blood loss: none Specify Complication(s): no apparent complications [address] 06-14-2025 Rx sent. OARRS repor t reviewed with no discrepancies. [facility] signed in March 2025. Follow up as scheduled. [address] 06-13-2025 04/13/[address] 06-12-2025 Medication name: pregabalin (Lyrica) 75 MG capsule Medication dosage: 75 mg (Miligrams Monthly quantity needed: 60 How many day supply requestin days Medication route: oral (PO) Medication administration time(s): 2 times a day (BID) If taking medication PRN, reason for taking medication: N/A If this is a controlled substance do you receive this or any other controlled medication from any other doctor or facility: No Ordering provider: Deana Oh Date of last office visit: 01.25.25 Date of next office visit: 08.02.25 Date of last refill: (see medication tab): 05.16.25 Updated/Validated preferred pharmacy: Yes Patient instructed to contact the pharmacy prior to picking up the medication: No [address] 06-05-2025 Reviewed chart. Refi ll appropriate. RX sent. [place] [id number] Csa 07/26/24 [place] [address] Medication name: clonazePAM (KlonoPIN) 2 MG tablet -- Take 1 tablet (2 mg) by mouth 2 times daily as needed for anxiety. Do not start before May 08, 2025. -- 30 days Medication dosage: 2 mg (Miligrams Monthly quantity needed: 60 How many day supply requestin days Medication route: oral (PO) Medication administration time(s): 2 times a day (BID) If taking medication PRN, reason for taking medication: Take 1 tablet (2 mg) by mouth 2 times daily as needed for anxiety. Do not start before May 08, 2025. If this is a controlled substance do you receive this or any other controlled medication from any other doctor or facility: Yes Ordering provider: Dr. Duggan Date of last office visit: 01-25-2025 Date of next office visit: Date of last refill: (see medication tab): 05-08-2025 Updated/Validated preferred pharmacy: Yes Patient instructed to contact the pharmacy prior to picking up the medication: Yes [address] 05-16-2025 36 Reviewed chart. Refi ll appropriate. RX sent. [place] [id number] Csa 04/13/[address] 05-12-2025 36 Medication name: pregabalin (Lyrica) capsule Medication dosage: 75 mg (Miligrams Monthly quantity needed: 60 How many day supply requestin days Medication route: oral (PO) Medication administration time(s): 2 times a day (BID) If taking medication PRN, reason for taking medication: N/A If this is a controlled substance do you receive this or any other controlled medication from any other doctor or facility: No Ordering provider: Olga Lidia Date of last office visit: 01.25.2025 Date of next office visit: 08.02.2025 Date of last refill: (see medication tab): 04.12.2025 Updated/Validated preferred pharmacy: Yes Patient instructed to contact the pharmacy prior to picking up the medication: Yes [address] 05-03-2025 36 Rx sent. OARRS repor t reviewed with no discrepancies. CSA signed 07/26/24 for Klonopin. Follow up as scheduled. Will need to sign a new CSA at upcoming appointment. [address] 04-13-25 Lyrica [facility] 36 Ordering provider: Claudia Duggan Date of last office visit: 01/25/25 Date of next office visit: 08/02/25 Updated/Validated preferred pharmacy: Yes Patient instructed to contact the pharmacy prior to picking up the medication: Yes (1) Medication name: clonazePAM (KlonoPIN) 2 MG tablet Medication dosage: 2 mg (Miligrams Monthly quantity needed: 60 How many day supply requestin days Medication route: oral (PO) Medication administration time(s): Take 1 tablet (2 mg) by mouth 2 times daily as needed for anxiety. If taking medication PRN, reason for taking medication: N/A If this is a controlled substance do you receive this or any other controlled medication from any other doctor or facility: N/A Date of last refill (see medication tab): 04/07/25 (2) Medication name: metoprolol succinate XL (Toprol-XL) 100 MG 24 hr tablet Medication dosage: 100 mg (Miligrams Monthly quantity needed: 30 How many day supply requestin days Medication route: oral (PO) Medication administration time(s): daily If taking medication PRN, reason for taking medication: N/A If this is a controlled substance do you receive this or any other controlled medication from any other doctor or facility: N/A Date of last refill (see medication tab): 11/17/24 (3) Medication name: albuterol 108 (90 Base) MCG/ACT inhaler Medication dosage: 108 (90 Base) MCG/ACT Monthly quantity needed: 18 g How many day supply requestin days Medication route: inhalation (inhaler) Medication administration time(s): Inhale 2 puffs every 6 hours as needed for wheezing or shortness of breath If taking medication PRN, reason for taking medication: N/A If this is a controlled substance do you receive this or any other controlled medication from any other doctor or facility: N/A Date of last refill (see medication tab): 01/12/25 [facility] 36on 04-12-2025 36 Called and spoke wit h patient, will stop in this afternoon to sign a controlled substance agreement [place] [address] Rx sent, OARRS repor t done, no inconsistencies, a new CS agreement needs [facility] Lyrica 02/26/24 [place] [address] Ordering provider: Claudia Duggan Date of last office visit: 01/25/25 Date of next office visit: 08/02/25 Updated/Validated preferred pharmacy: Yes Patient instructed to contact the pharmacy prior to picking up the medication: Yes (1) Medication name: pregabalin Medication dosage: 75 mg (Miligrams Monthly quantity needed: 60 How many day supply requestin days Medication route: oral (PO) Medication administration time(s): 2 times a day (BID) If taking medication PRN, reason for taking medication: N/A If this is a controlled substance do you receive this or any other controlled medication from any other doctor or facility: N/A Date of last refill (see medication tab): 03/09/25 [place] [id number] 36 Noted in appt [facility] 04-07-2025 36 Rx sent. OARRS repor t reviewed with no discrepancies. CSA will need signed at upcoming appointment in July. Follow up as scheduled. [place] [id number] 36 Medication name: clonazePAM (KlonoPIN) 2 MG tablet Medication dosage: 2 mg (Miligrams Monthly quantity needed: 60 How many day supply requestin days Medication route: oral (PO) Medication administration time(s): 2 times a day (BID) If taking medication PRN, reason for taking medication: anxiety If this is a controlled substance do you receive this or any other controlled medication from any other doctor or facility: N/A Ordering provider: olga lidia Date of last office visit: 01/25/2025 Date of next office visit: 08/02/2025 Date of last refill: (see medication tab): 03.09.25 Updated/Validated preferred pharmacy: Yes Patient instructed to contact the pharmacy prior to picking up the medication: N/A [place] [id number] 36 Rx sent, OARRS repor t done, no inconsistencies, CS agreement in place [place] [id number] Csa lyrica 02/26/24 Klonopin 07/26/24 [place] [address] Ordering provider: Adarsh Duggan Date of last office visit: 01/25/25 Date of next office visit: 08/02/25 Updated/Validated preferred pharmacy: Yes [facility] ([facility]) Patient instructed to contact the pharmacy prior to picking up the medication: Yes (1) Medication name: clonazePAM (KlonoPIN) Medication dosage: 2 mg (Miligrams Monthly quantity needed: 60 How many day supply requestin days Medication route: oral (PO) Medication administration time(s): Take 1 tablet (2 mg) by mouth 2 times daily as needed for anxiety. If taking medication PRN, reason for taking medication: Anxiety If this is a controlled substance do you receive this or any other controlled medication from any other doctor or facility: No Date of last refill (see medication tab): 02/09/25 (2) Medication name: rosuvastatin (Crestor) Medication dosage: 5 mg (Miligrams Monthly quantity needed: 30 How many day supply requestin days Medication route: oral (PO) Medication administration time(s): daily If taking medication PRN, reason for taking medication: N/A If this is a controlled substance do you receive this or any other controlled medication from any other doctor or facility: No Date of last refill (see medication tab): 09/22/24 (3) Medication name: pregabalin (Lyrica) NOTE: It's a few days early to request, but with holiday she wants to be sure pharmacy has script on file and can fill it next weekend. Medication dosage: 75 mg (Miligrams Monthly quantity needed: 60 How many day supply requestin days Medication route: oral (PO) Medication administration time(s): 2 times a day (BID) If taking medication PRN, reason for taking medication: N/A If this is a controlled substance do you receive this or any other controlled medication from any other doctor or facility: No Date of last refill (see medication tab): 02/16/25 [facility] 02-16-2025 36 Rx sent, OARRS repor t done, no inconsistencies, CS agreement will need signed before her next refill. [facility] 02-14-2025 36 CSA Lyrica 02/26/24 [facility] 36 Medication name: pregabalin (Lyrica) 75 MG capsule Medication dosage: 75 mg (Miligrams Monthly quantity needed: 60 How many day supply requestin days Medication route: oral (PO) Medication administration time(s): 2 times a day (BID) If taking medication PRN, reason for taking medication: N/A If this is a controlled substance do you receive this or any other controlled medication from any other doctor or facility: No Ordering provider: Adarsh Duggan MD Date of last office visit: 01/25/25 Date of next office visit: 08/02/25 Date of last refill: (see medication tab): 01/19/25 Updated/Validated preferred pharmacy: Yes [facility] [id number] - [place], [place] - [address] [place] [id number] Patient instructed to contact the pharmacy prior to picking up the medication: Yes [facility] 36on 02-09-2025 36 Rx sent, OARRS repor t done, no inconsistencies, CS agreement in place [facility] 36on 02-07-2025 36 07-26-[address] [facility] 36 Medication name: clonazePAM (KlonoPIN) 2 MG tablet Medication dosage: 2 mg (Miligrams Monthly quantity needed: 60 How many day supply requestin days Medication route: oral (PO) Medication administration time(s): 2 times daily as needed (PRN) If taking medication PRN, reason for taking medication: anxiety If this is a controlled substance do you receive this or any other controlled medication from any other doctor or facility: No Ordering provider: Dr Duggan Date of last office visit: 01/25/25 Date of next office visit: 08/02/25 Date of last refill: (see medication tab): 01/12/25 Updated/Validated preferred pharmacy: Yes Patient instructed to contact the pharmacy prior to picking up the medication: Yes [facility] Office Visiton 01-25-2025 Follow-up visit [id number] Jonathan Moise 1950 F Date Provider Department [facility] 01/25[facility]20[id number] Family History Problem Relation Age of Onset High Blood Pressure Mother Stroke Mother Heart disease Mother Cancer Father Cancer Other Colon cancer Other Other cancer Other Comments: Father fam hx Throat CA, colon and leukemia Family Status - Relation Status Age at Mother Father Other Other Alive Level of Service:47817 [place] OFFICE/OUTPATIENT ESTABLISHED MOD MDM 30 MIN Reason for Visit and Comments: Medication Check [[id number]] Health Maintenance [872] - CRCS- declines Mammo- declines Anxiety [9] Depression [32] COPD [313] Coronary Artery Disease [187] Atrial Fibrillation [80] [facility] Progress Noteon 01-25-2025 Progress Note Controlled, continue rosuvastatin 5 mg daily [facility] Progress Note Discussed smoking cessation she says she is trying to quit however she gives no indication she is working hard at it. Normal [facility] Progress Note Partial remission currently on no medication [facility] Progress Note Partial remission, continue clonazepam 2 mg twice a day as needed [facility] Progress Note Currently this is no t bothering her enough that she wants to have anything done with it she will keep a watch on it and if it gets worse or becomes more painful she will let me know and we will send her to a hand surgeon. Normal [facility] Progress Note Stable, continue Lyr ica 75 mg twice a day [facility] Progress Note Stable, continue Eliquis 5 mg twice a day and metoprolol 100 mg daily for rate control. Normal [facility] Progress Note Initially elevated, recheck was normal continue metoprolol 100 mg daily [facility] Progress Note Stable, no recent angina continue metoprolol 100 mg daily, rosuvastatin 5 mg daily [facility] Progress Note Stable, continue Symbicort 160-4.52 puffs daily and albuterol as needed. Normal [facility] Progress Note Stable, continue Lyr ica 75 mg twice a day [facility] Progress Note 01/25/2025 Jonathan Moise (: 1950) is a 74 y.o. female , Established patient, here for evaluation of the following chief complaint(s): Medication Check, Health Maintenance (CRCS- declines /Mammo- declines ), Anxiety, Depression, COPD, Coronary Artery Disease, and Atrial Fibrillation ASSESSMENT/PLAN: 1. Chronic obstructive pulmonary disease, unspecified COPD type (HCC) Assessment & Plan: Stable, continue Symbicort 160-4.52 puffs daily and albuterol as needed. 2. Paroxysmal atrial fibrillation (HCC) Assessment & Plan: Stable, continue Eliquis 5 mg twice a day and metoprolol 100 mg daily for rate control. 3. 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 Neuropathy Assessment & Plan: Stable, continue Lyrica 75 mg twice a day 5. Essential hypertension Assessment & Plan: Initially elevated, recheck was normal continue metoprolol 100 mg daily 6. Fibromyalgia Assessment & Plan: Stable, continue Lyrica 75 mg twice a day 7. Cigarette smoker Assessment & Plan: Discussed smoking cessation she says she is trying to quit however she gives no indication she is working hard at it. 8. Anxiety Assessment & Plan: Partial remission, continue clonazepam 2 mg twice a day as needed 9. Pure hypercholesterolemia Assessment & Plan: Controlled, continue rosuvastatin 5 mg daily 10. Ganglion cyst of wrist, left Assessment & Plan: Currently this is not bothering her enough that she wants to have anything done with it she will keep a watch on it and if it gets worse or becomes more painful she will let me know and we will send her to a hand surgeon. 11. Depressive disorder Assessment & Plan: Partial remission currently on no medication Follow up in about 6 months (around 07/28/2025). SUBJECTIVE/OBJECTIVE: RAI Saeed comes in today for 6-month follow-up on her COPD, atrial fibrillation, knees both seem to be stable. She has coronary disease but she has had no recent angina. Blood pressure is slightly elevated today we will recheck that prior to discharge. She has a history of neuropathy and fibromyalgia for which she takes Lyrica. She has a history of depression and anxiety but she is not on any depression medicine but does take clonazepam regularly. She has hypercholesterolemia and she continues to smoke and gives no indication she is ready to quit. Her only real complaint today is that she has this lump on her left wrist on the volar surface and its tender to touch at times and she says it just recently popped up. Review of Systems Constitutional: Negative for chills and fever. Respiratory: Negative for shortness of breath. Cardiovascular: Negative for chest pain and palpitations. Gastrointestinal: Negative for abdominal pain, blood in stool, constipation and diarrhea. Genitourinary: Negative for dysuria, frequency, hematuria and urgency. Neurological: Negative for weakness and numbness. Psychiatric/Behavioral: Negative for dysphoric mood. The patient is not nervous/anxious. Vitals: 01/25/25 1320 01/25/25 1341 BP: (!) 174/86 103/61 BP Location: Left arm Left arm Patient Position: Sitting Sitting Pulse: 84 82 SpO2: 94% Weight: 125 lb 6.4 oz (56.9 kg) Height: 5' 6" (1.676 m) Physical Exam Vitals and nursing note reviewed. Constitutional: General: She is not in acute distress. Appearance: Normal appearance. HENT: Head: Normocephalic. Right Ear: Tympanic membrane, ear canal and external ear normal. Left Ear: Tympanic membrane, ear canal and external ear normal. Mouth/Throat: Mouth: Mucous membranes are moist. Pharynx: Oropharynx is clear. Eyes: Extraocular Movements: Extraocular movements intact. Pupils: Pupils are equal, round, and reactive to light. Neck: Thyroid: No thyromegaly. Vascular: No carotid bruit. Cardiovascular: Rate and Rhythm: Normal rate. Rhythm irregularly irregular. Heart sounds: Normal heart sounds. No murmur heard. Pulmonary: Effort: Pulmonary effort is normal. Breath sounds: Normal breath sounds. Abdominal: General: Bowel sounds are normal. Palpations: Abdomen is soft. Musculoskeletal: General: Normal range of motion. Cervical back: Normal range of motion. Comments: Left wrist with a cystic lesion that is approximately 2 cm in length and 8 mm in width on the volar surface and slightly tender to touch. Lymphadenopathy: Cervical: No cervical adenopathy. Skin: General: Skin is warm and dry. Neurological: General: No focal deficit present. Mental Status: She is alert and oriented to person, place, and time. Psychiatric: Mood and Affect: Mood normal. An electronic signature was used to authenticate this note. Adarsh Duggan MD 01/25/2025 2:10 PM [facility] 3601-19-2025 36 Rx sent, OARRS repor t done, no inconsistencies, CS agreement in place [facility] 3601-17-2025 36 CSA Lyrica 02/26/24 [facility] 36 Medication name: pregabalin (Lyrica) 75 MG capsule Medication dosage: 75 MG capsule Monthly quantity needed: 60 How many day supply requestin days Medication route: oral (PO) Medication administration time(s): 2 times a day (BID) If taking medication PRN, reason for taking medication: N/A If this is a controlled substance do you receive this or any other controlled medication from any other doctor or facility: No Ordering provider: Date of last office visit: 08/29/24 Date of next office visit: 01/25/25 Date of last refill: (see medication tab): 12/22/24 Updated/Validated preferred pharmacy: Yes Patient instructed to contact the pharmacy prior to picking up the medication: Yes [address] 01-12-2025 36 Rx sent, OARRS repor t done, no inconsistencies, CS agreement in place [address] 01-11-2025 36 07-26-[address] [facility] 36 Ordering provider: Claudia Duggan Date of last office visit: 07/26/2024 Date of next office visit: 01/25/2025 Updated/Validated preferred pharmacy: Yes Patient instructed to contact the pharmacy prior to picking up the medication: Yes (1) Medication name: albuterol Medication dosage: 108 (90 Base) MCG/ACT inhaler Monthly quantity needed: unk How many day supply requesting: unk Medication route: inhalation (inhaler) Medication administration time(s): Inhale 2 puffs every 6 hours If taking medication PRN, reason for taking medication: as needed for wheezing or shortness of breath. If this is a controlled substance do you receive this or any other controlled medication from any other doctor or facility: N/A Date of last refill (see medication tab): 09/03/24 (2) Medication name: clonazePAM (KlonoPIN) Medication dosage: 2 MG tablet Monthly quantity needed: 60 How many day supply requestin days Medication route: oral (PO) Medication administration time(s): 2 times a day (BID) If taking medication PRN, reason for taking medication: as needed for anxiety If this is a controlled substance do you receive this or any other controlled medication from any other doctor or facility: No Date of last refill (see medication tab): 12/17/[address] 12-22-2024 36 Rx sent, OARRS repor t done, no inconsistencies, CS agreement in place [address] 12-20-2024 36 CSA Lyrica 02/26/24 [place] [address] Medication name: pregabalin (Lyrica) 75 MG capsule Medication dosage: 75 mg (Miligrams Monthly quantity needed: 60 How many day supply requestin days Medication route: oral (PO) Medication administration time(s): 2 times a day (BID) If taking medication PRN, reason for taking medication: N/A If this is a controlled substance do you receive this or any other controlled medication from any other doctor or facility: N/A Ordering provider: Dr. Duggan Date of last office visit: 08/29/24 Date of next office visit: 01/25/25 Date of last refill: (see medication tab): 11/23/24 Updated/Validated preferred pharmacy: Yes Patient instructed to contact the pharmacy prior to picking up the medication: Yes [address] 12-15-2024 36 Rx sent, OARRS repor t done, no inconsistencies, CS agreement in place [address] 12-14-2024 36 CSMA 07/26/24 [place] [address] Medication name: clonazePAM (KlonoPIN) 2 MG tablet Medication dosage: 2 mg (Miligrams Monthly quantity needed: 60 How many day supply requestin days Medication route: oral (PO) Medication administration time(s): 2 times a day (BID) prn If taking medication PRN, reason for taking medication: N/A If this is a controlled substance do you receive this or any other controlled medication from any other doctor or facility: N/A Ordering provider: Dr. Duggan Date of last office visit: 07/26/24 Date of next office visit: 01/25/25 Date of last refill: (see medication tab): 11/17/24 Updated/Validated preferred pharmacy: Yes Patient instructed to contact the pharmacy prior to picking up the medication: Yes [address] 11-23-2024 36 Rx sent, OARRS repor t done, no inconsistencies, CS agreement in place [place] [address] CSMA 02/26/24 Noted to sign at next appt. [facility] 36 Medication name: pregabalin (Lyrica) 75 MG capsule Medication dosage: 75 mg (Miligrams Monthly quantity needed: 60 How many day supply requestin days Medication route: oral (PO) Medication administration time(s): 2 times a day (BID) If taking medication PRN, reason for taking medication: N/A If this is a controlled substance do you receive this or any other controlled medication from any other doctor or facility: No Ordering provider: Dr. Duggan Date of last office visit: 07/26/24 Date of next office visit: 01/25/25 Date of last refill: (see medication tab): 10/26/24 Updated/Validated preferred pharmacy: Yes Patient instructed to contact the pharmacy prior to picking up the medication: Yes [address] 11-17-2024 36 Rx sent, OARRS repor t done, no inconsistencies, CS agreement in place [address] 11-16-2024 36 CSA 07/26/24 [place] [address] Ordering provider: Taylor Ruby Date of last office visit: 08.29.2024 Date of next office visit: 01.25.2025 Updated/Validated preferred pharmacy: Yes Patient instructed to contact the pharmacy prior to picking up the medication: Yes (1) Medication name: clonazePAM (KlonoPIN) tablet Medication dosage: 2 mg (Miligrams Monthly quantity needed: 60 How many day supply requestin days Medication route: oral (PO) Medication administration time(s): 2 times a day (BID) If taking medication PRN, reason for taking medication: N/A If this is a controlled substance do you receive this or any other controlled medication from any other doctor or facility: No Date of last refill (see medication tab): 10.21.2024 (2) Medication name: metoprolol succinate XL (Toprol-XL) 24 hr tablet Medication dosage: 100 mg (Miligrams Monthly quantity needed: 30 How many day supply requestin days Medication route: oral (PO) Medication administration time(s): daily If taking medication PRN, reason for taking medication: N/A If this is a controlled substance do you receive this or any other controlled medication from any other doctor or facility: N/A Date of last refill (see medication tab): 07.01.[address] 10-26-2024 36 Reviewed chart. Refi ll appropriate. RX sent. [address] Lyrica 02/26/24 [facility] [place] [address] Medication name: pregabalin (Lyrica) 75 MG capsule Medication dosage: 75 mg (Miligrams Monthly quantity needed: 60 How many day supply requestin days Medication route: oral (PO) Medication administration time(s): 2 times a day (BID) If taking medication PRN, reason for taking medication: N/A If this is a controlled substance do you receive this or any other controlled medication from any other doctor or facility: N/A Ordering provider: Deana Oh Date of last office visit: 07.26.24 Date of next office visit: 01.25.25 Date of last refill: (see medication tab): 09.26.24 Updated/Validated preferred pharmacy: Yes Patient instructed to contact the pharmacy prior to picking up the medication: No [address] 10-21-2024 36 Rx sent. OARRS repor t reviewed with no discrepancies. [facility] signed July 2024. Follow up as scheduled. [address] 10-20-2024 [address] 10-17-2024 36 Not due for refill until 10/23/24. Will refill this Thursday (10/21/24). [address] 07/26/24 [place] [address] Medication name: clonazePAM (KlonoPIN) Medication dosage: 2 mg (Miligrams Monthly quantity needed: 60 How many day supply requestin days Medication route: oral (PO) Medication administration time(s): 2 times daily PRN If taking medication PRN, reason for taking medication: Anxiety If this is a controlled substance do you receive this or any other controlled medication from any other doctor or facility: No Ordering provider: Adarsh Duggan Date of last office visit: 07/26/24 Date of next office visit: 01/25/25 Date of last refill: (see medication tab): 09/22/24 Updated/Validated preferred pharmacy: Yes [facility] [address] Patient instructed to contact the pharmacy prior to picking up the medication: Yes [facility] 36on 10-06-2024 36 Message released to patient as written. yes Patient's further questions if applicable: none Were all questions from office addressed or relayed to the patient from encounter: Yes [facility] 36 ----- Message from Adarsh Duggan MD sent at 10/05/2024 12:16 PM EST ----- Screening CT scan shows moderate pulmonary emphysema/COPD and stable pulmonary nodules less than 3 mm. Coronary artery and aortic calcifications indicating plaque formation would highly encourage smoking cessation to prevent further lung damage decrease risk for lung cancer and decreased risk for heart attacks and strokes Left a message to return call. [facility] 36on 10-05-2024 36 ----- Message from Adarsh Duggan MD sent at 10/05/2024 12:16 PM EST ----- Screening CT scan shows moderate pulmonary emphysema/COPD and stable pulmonary nodules less than 3 mm. Coronary artery and aortic calcifications indicating plaque formation would highly encourage smoking cessation to prevent further lung damage decrease risk for lung cancer and decreased risk for heart attacks and strokes Left a message to return call. [facility] CT LUNG SCREENING LOW DOSEon 10-05-2024 CT LUNG SCREENING LOW DOSE This is a summary report. The complete report is available in the patient's medical record. If you cannot access the medical record, please contact the sending organization for a detailed fax or copy. Patient Name: JONATHAN MOISE : 1950 Exam Date/Time: 10/03/2024 13:38 Procedure: CT LUNG SCREENING LOW DOSE Ordering Provider: DUGGAN DARRELL Reason For Exam: Lung cancer screening, >= 20 pk-yr smoking history (Age >= 50y) CLINICAL HISTORY: History of tobacco use. This is a screening study for pulmonary nodules. COMPARISON: 08/19/2017 Technique: 1 mm low dose helical CT images were obtained of the chest without the use of intravenous contrast. Images were reformatted in coronal and sagittal projections. Dose reduction was employed with automated exposure control. FINDINGS: Pulmonary nodules: *All nodule measurements are mean axial diameter and saved on garduno images* In the right middle lung lobe, stable 3 mm nodule is noted (series 6 axial image 224). In the medial left upper lung lobe, stable 3 mm nodule noted (series 6 axial image 141). Airway: Tracheobronchial tree remains patent. Lungs: Moderate centrilobular and paraseptal emphysematous changes are noted. Linear platelike atelectasis of the right lower, right middle, and lingular lobes seen. Otherwise, no focal consolidation is identified. Pleura: No pleural thickening or effusion. Heart/Great vessels: Normal heart size with no pericardial effusion. There is significant coronary artery calcification. Atherosclerotic calcifications are noted in the thoracic aorta and branch vasculature. The pulmonary arteries normal in caliber. Mediastinum/Sheron: No enlarged mediastinal, hilar, or axillary lymph nodes. Thyroid: Postsurgical changes compatible with left hemithyroidectomy are noted. Esophagus: Mild hiatal hernia is present. Visualized Upper Abdomen: The visualized upper abdomen is unremarkable. Chest wall: Unremarkable. Bones: No suspicious osseous lesions. Mild degenerative changes of the thoracic spine are observed. IMPRESSION: 1. Moderate pulmonary emphysema with stable pulmonary nodules measuring up to 3 mm. 2. Coronary and aortic atherosclerosis. 3. Mild hiatal hernia. 4. Other chronic and postsurgical findings as discussed. ASSESSMENT CATEGORY: Lung-RADS Category 2 - Benign appearance or behavior. Recommend continued annual low-dose screening CT in 12 months. No other clinically significant findings. Lung-RADS Version 2022 Assessment Categories - for Screening CT Chest Only. Release date: Jul 2022 Category 0 - Incomplete Part of lungs cannot be evaluated Findings suggestive of an inflammatory or infectious process Category 1 - Negative - Continue annual screening No nodules Nodules with benign characteristics (complete, central, popcorn Ca++) or fat Category 2 - Benign appearance or behavior - Continue annual screening Perifissural nodule(s) < 10 mm at baseline or new with oval, lentiform or triangular shape Solid nodule(s): < 6 mm at baseline or new < 4 mm Part solid nodule(s): < 6 mm mean diameter at baseline Nonsolid nodule(s) (GGN): < 30 mm OR > 30 mm and unchanged or slowly growing Airway nodule in subsegmental branch Category 3 or 4 nodules unchanged for > 6 months Category 3 - Probably benign finding(s) - 6 month follow up Solid nodule(s): 6 to < 8 mm at baseline OR new 4 mm to < 6 mm Part solid nodule(s) 6 mm total diameter with solid component < 6 mm OR new < 6 mm total diameter Nonsolid nodule(s) (GGN) > 30 mm on baseline or new Atypical cyst Category 4a nodule unchanged for 3 months Category 4A - Suspicious - 3 month follow up or PET/CT when >8mm Solid nodule(s): 8 to < 15 mm at baseline OR growing < 8 mm OR new 6 to <8 mm Part solid nodule(s): > 6 mm with solid component > 6 mm to < 8 mm OR with a new or growing < 4 mm solid component Airway nodule - segmental, more proximal than baseline or new Atypical cyst with thick wall or multilocular or changed Category 4B - Suspicious - chest CT with or without contrast, PET/CT and/or tissue sampling depending on the *probability of malignancy and comorbidities. PET/CT may be used when there is a > 8 mm solid component. For new large nodules that develop on an annual repeat screening CT, a [address] may be recommended. Airway nodule growing Solid nodule(s): > 15 mm OR new or growing, and > 8 mm Part solid nodule(s) with: a solid component > 8 mm OR a new or growing > 4mm solid component Atypical cyst with growth Category 4X - Suspicious - (same work up as Category 4B) Category 3 or 4 nodules with additional features or imaging findings that increases the suspicion of malignancy - spiculation, rapid growth or associated lymph node enlargement Modifier to add to Category 0-4: Category S - Clinically or potentially significant non lung cancer related findings NOTES 1. Lung-RADS C (more content not included)... [address] 09-26-2024 36 Reviewed chart. Refi ll appropriate. RX sent. [place] [address] CSA 02/26/24 [place] [address] Medication name: pregabalin (Lyrica) Medication dosage: 75 mg (Miligrams Monthly quantity needed: 60 How many day supply requestin days Medication route: oral (PO) Medication administration time(s): 2 times a day (BID) If taking medication PRN, reason for taking medication: N/A If this is a controlled substance do you receive this or any other controlled medication from any other doctor or facility: No Ordering provider: Olga Lidia Date of last office visit: 07/26/24 Date of next office visit: 01/25/25 Date of last refill: (see medication tab): 08/30/24 Updated/Validated preferred pharmacy: Yes Patient instructed to contact the pharmacy prior to picking up the medication: Yes [facility] 36on 09-22-2024 36 Rx sent, OARRS repor t done, no inconsistencies, CS agreement in place [facility] 36on 09-20-2024 36 CSMA 07/26/24 [place] [address] Ordering provider: Claudia Duggan Date of last office visit: 08/29/24 Date of next office visit: 01/25/25 Updated/Validated preferred pharmacy: Yes Patient instructed to contact the pharmacy prior to picking up the medication: Yes (1) Medication name: rosuvastatin (Crestor) 5 MG tablet Medication dosage: 5 mg (Miligrams Monthly quantity needed: 30 How many day supply requestin days Medication route: oral (PO) Medication administration time(s): daily If taking medication PRN, reason for taking medication: N/A If this is a controlled substance do you receive this or any other controlled medication from any other doctor or facility: N/A Date of last refill (see medication tab): 07/27/24 (2) Medication name: clonazePAM (KlonoPIN) 2 MG tablet Medication dosage: 2 mg (Miligrams Monthly quantity needed: 60 How many day supply requestin days Medication route: oral (PO) Medication administration time(s): 2 times a day (BID) If taking medication PRN, reason for taking medication: N/A If this is a controlled substance do you receive this or any other controlled medication from any other doctor or facility: N/A Date of last refill (see medication tab): 08/25/24 [facility] 36on 08-30-2024 36 Rx sent, OARRS repor t done, no consistency, CS agreement in place [place] [address] Notified patient, no further questions, does need a refill on lyrica, please send to [facility] CSA Lyrica 02/26/24 [facility] 36 ----- Message from Adarsh Duggan MD sent at 08/30/2024 5:49 AM EST ----- Cholesterol is excellent, continue rosuvastatin at current dose and very strict low-fat low-cholesterol diet [facility] Progress Noteon 08-29-2024 Progress Note Venipuncture complet ed by [facility]. [address] 08-25-2024 36 Rx sent, OARRS repor t done, no inconsistencies, CS agreement in place [address] 08-24-2024 36 CSA 07/26/24 [facility] 36 Ordering provider: Claudia Duggan Date of last office visit: 07/26/24 Date of next office visit: 08/29/24 Updated/Validated preferred pharmacy: Yes Patient instructed to contact the pharmacy prior to picking up the medication: Yes (1) Medication name: albuterol 108 (90 Base) MCG/ACT inhaler How many day supply requestin days Medication route: inhalation (inhaler) Medication administration time(s): daily If taking medication PRN, reason for taking medication: N/A If this is a controlled substance do you receive this or any other controlled medication from any other doctor or facility: N/A Date of last refill (see medication tab): (2) Medication name: clonazePAM (KlonoPIN) 2 MG tablet Monthly quantity needed: 60 How many day supply requestin days Medication route: oral (PO) Medication administration time(s): 2 times a day (BID) If taking medication PRN, reason for taking medication: N/A If this is a controlled substance do you receive this or any other controlled medication from any other doctor or facility: N/A Date of last refill (see medication tab): [address] 08-03-2024 36 Rx sent, OARRS repor t done, no inconsistencies, CS agreement in place [facility] 36 CSA 02/26/[address] 08-02-2024 36 Medication name: pregabalin (Lyrica) 75 MG capsule Medication dosage: 75 mg (Miligrams Monthly quantity needed: 60 How many day supply requestin days Medication route: oral (PO) Medication administration time(s): daily If taking medication PRN, reason for taking medication: N/A If this is a controlled substance do you receive this or any other controlled medication from any other doctor or facility: No Ordering provider: Dr. Duggan Date of last office visit: 07/26/2024 Date of next office visit: 01/25/2025 Date of last refill: (see medication tab): 07/07/2024 Updated/Validated preferred pharmacy: Yes Patient instructed to contact the pharmacy prior to picking up the medication: No [facility] 36on 07-27-2024 36 Rx sent, order signed [facility] 36 Med and orders pended. [facility] 36 Message released to patient as written. ----- Message from Adarsh Duggan MD sent at 07/27/2024 7:39 AM EST ----- Blood sugar and chemistry are normal. Cholesterol total and good are good, bad continues to be high and is actually increased, recommend low-dose rosuvastatin 5 mg daily strict low-fat low-cholesterol diet and recheck in 4 weeks. Left a message to return call. Directions for CAC in the event patient calls back: If the patient is agreeable to the recommendation, please: 1. Verify what pharmacy RX will be sent to. 2. Schedule patient for nurse visit to repeat labs in 4 weeks. 3. Route this TE back to the office clinical pool so we can place lab orders and send in rx. If the patient is not agreeable then no nurse visit is needed. Thanks! Patient's further questions if applicable: 1. Agreeable to Medication - [facility] in [place] 2. 08/29/24 Visit with Nurses Were all questions from office addressed or relayed to the patient from encounter: Yes [facility] 36 ----- Message from Adarsh Duggan MD sent at 07/27/2024 7:39 AM EST ----- Blood sugar and chemistry are normal. Cholesterol total and good are good, bad continues to be high and is actually increased, recommend low-dose rosuvastatin 5 mg daily strict low-fat low-cholesterol diet and recheck in 4 weeks. Left a message to return call. Directions for CAC in the event patient calls back: If the patient is agreeable to the recommendation, please: 1. Verify what pharmacy RX will be sent to. 2. Schedule patient for nurse visit to repeat labs in 4 weeks. 3. Route this TE back to the office clinical pool so we can place lab orders and send in rx. If the patient is not agreeable then no nurse visit is needed. Thanks! [facility] 37on 07-26-2024 37 Number [facility] Office Visiton 07-26-2024 Follow-up visit [id number] Jonathan Moise 1950 F Date Provider Department Center 07/26/2024 [id number] DUGGAN [facility] Family History Problem Relation Age of Onset High Blood Pressure Mother Stroke Mother Heart disease Mother Cancer Father Cancer Other Colon cancer Other Other cancer Other Comments: Father fam hx Throat CA, colon and leukemia Family Status - Relation Status Age at Mother Father Other Other Alive Level of Service:[id number] [place] PPPS, SUBSEQ VISIT Reason for Visit and Comments: Medicare Annual Wellness Visit Subsequent [747] Blood Work [452869] Health Maintenance [872] - Colonoscopy- refuse Hep c screening- refuse Mammogram- refuse Shingles vaccine- refuse Lung cancer screen-agree Rsv vaccine- not done Flu vaccine- refuse 3rd covid vaccine- not done [facility] Progress Noteon 07-26-2024 Progress Note Control unknown, currently off of her medications [facility] Progress Note Discussed smoking cessation gives no indication she is ready to quit, offered her screening CT scan which she refused. [facility] Progress Note Partial remission, currently on no medication. [facility] Progress Note Currently active, continue clonazepam 2 mg twice a day as needed. Rx sent, OARRS report done, no inconsistencies, CS agreement in place [facility] Progress Note Stable, continue Eliquis 5 mg daily and metoprolol 100 mg daily [facility] Progress Note Stable, no recent angina [facility] Progress Note Stable on Symbicort and albuterol, highly encouraged her to quit smoking. [facility] Progress Note She is having get significant number of tics today [facility] Progress Note [facility] - [address] [address] Visit Type: Medicare Annual Wellness PCP: Adarsh Duggan MD Reason for Visit: Medicare Annual Wellness Visit Subsequent, Blood Work, and Health Maintenance (Colonoscopy- refuse/Hep c screening- refuse/Mammogram- refuse/Shingles vaccine- refuse/Lung cancer screen-agree/Rsv vaccine- not done/Flu vaccine- refuse/3rd covid vaccine- not done) Assessment and Plan Problem List Items Addressed This Visit Cigarette smoker Discussed smoking cessation gives no indication she is ready to quit, offered her screening CT scan which she refused. Relevant Orders CT lung screening low dose Pure hypercholesterolemia Control unknown, currently off of her medications Relevant Orders Lipid panel Anxiety Currently active, continue clonazepam 2 mg twice a day as needed. Rx sent, OARRS report done, no inconsistencies, CS agreement in place Relevant Medications clonazePAM (KlonoPIN) 2 MG tablet Chronic obstructive pulmonary disease (HCC) Stable on Symbicort and albuterol, highly encouraged her to quit smoking. 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 Myoclonic disorder She is having get significant number of tics today Paroxysmal atrial fibrillation (HCC) Stable, continue Eliquis 5 mg daily and metoprolol 100 mg daily Other Visit Diagnoses Medicare annual wellness visit, subsequent - Primary Screening for diabetes mellitus Relevant Orders Comprehensive metabolic panel Influenza vaccine refused I have reviewed and reconciled the medication list with the patient today. Current Outpatient Medications Medication Sig Dispense Refill albuterol 108 (90 Base) MCG/ACT inhaler Inhale 2 puffs every 6 hours as needed for wheezing or shortness of breath. 18 g 2 apixaban (Eliquis) 5 MG tablet Take 1 tablet (5 mg) by mouth 2 times daily. 60 tablet 5 budesonide-formoterol (Symbicort) 160-4.5 MCG/ACT inhaler Inhale 2 puffs in the morning and 2 puffs in the evening. Rinse mouth with water after use to reduce aftertaste and incidence of candidiasis. Do not swallow.. 1 each 2 hydroCHLOROthiazide (HYDRODiuril) 25 MG tablet Take 1 tablet (25 mg) by mouth daily. 90 tablet 1 lisinopril 20 MG tablet Take 1 tablet (20 mg) by mouth daily. 90 tablet 1 metoprolol succinate XL (Toprol-XL) 100 MG 24 hr tablet Take 1 tablet (100 mg) by mouth daily. Do not crush or chew. 90 tablet 1 pregabalin (Lyrica) 75 MG capsule Take 1 capsule (75 mg) by mouth 2 times daily. 60 capsule 0 alendronate (Fosamax) 70 MG tablet Take 1 tablet (70 mg) by mouth every 7 days. Take in the morning with a full glass of water, on an empty stomach, and do not take anything else by mouth or lie down for the next 30 min. (Patient not taking: Reported on 12/23/2023) 4 tablet 11 clonazePAM (KlonoPIN) 2 MG tablet Take 1 tablet (2 mg) by mouth 2 times daily as needed for anxiety. 60 tablet 0 No current facility-administered medications for this visit. Medications Discontinued During This Encounter Medication Reason clonazePAM (KlonoPIN) 2 MG tablet Reorder The following health maintenance schedule was reviewed with the patient and provided in printed form in the after visit summary: Health Maintenance Topic Date Due Colorectal Cancer Screening Never done Diabetes Screening Never done Mammogram Never done Lung Cancer Screening Never done Influenza Vaccine (1) 03/13/2025 (Originally 05/15/2024) RSV Immunization for Adults (1 - Risk 60-74 years 1-dose series) 07/26/2025 (Originally 2011) Zoster Vaccines (1 of 2) 07/26/2025 (Originally 2001) Hepatitis C Screening 07/26/2025 (Originally 1969) COVID-19 Vaccine ( - 2023- season) 2025 (Originally 05/15/2024) Depression Monitoring 01/23/2025 Bone Density Scan 07/07/2025 Lipid Panel 12/31/2027 DTaP/Tdap/Td Vaccines (3 - Td or Tdap) 04/09/2028 Medicare Advantage Annual Wellness Visit Completed Pneumococcal Vaccine: 65+ Years Completed RSV Immunization under 20 Months Aged Out HIB Vaccines Aged Out Hepatitis B Vaccines Aged Out IPV Vaccines Aged Out Hepatitis A Vaccines Aged Out Meningococcal Vaccine Aged Out Rotavirus Vaccines Aged Out HPV Vaccines Aged Out Orders Placed This Encounter Procedures CT lung screening low dose Standing Status: Future Standing Expiration Date: 07/26/2025 Order Specific Question: What is the patient's sedation requirement? Answer: No Sedation Order Specific Question: Does the patient show any signs or symptoms of lung cancer? Answer: No Order Specific Question: Is this the first (baseline) CT or an annual exam? Answer: Annual [2] Order Specific Question: Is there documentation of shared decision making? Answer: Yes Order Specific Question: What is the patie (more content not included)... [facility] Progress Note Patient verified by last name and date of . [address] 07-21-2024 36 Refused, requesting to early [facility] 36 Prescription Request : Last medication check: 12/23/23 Last physical exam: 07/21/23 Next scheduled appointment: 07/26/24 CSA on file (date): 07/21/23 Last urine drug screen: none Last date of refill on this medication 07/01/24 60 tablets no refill [place] [address] 07-07-2024 36 Reviewed chart. Refi ll appropriate. RX sent. [facility] 36 CSA 02/26/24 [place] [address] Medication name: pregabalin (Lyrica) 75 MG capsule Medication dosage: 75 mg (Miligrams Monthly quantity needed: 60 How many day supply requestin days Medication route: oral (PO) Medication administration time(s): 2 times a day (BID) If taking medication PRN, reason for taking medication: N/A If this is a controlled substance do you receive this or any other controlled medication from any other doctor or facility: N/A Ordering provider: olga lidia Date of last office visit: 12/23/2023 Date of next office visit: 07/26/2024 Date of last refill: (see medication tab): 9..24 Updated/Validated preferred pharmacy: Yes Patient instructed to contact the pharmacy prior to picking up the medication: Yes [facility] XR Hip - left 3 Viewson 01-12 No fracture or dislocation of the pelvis or left hip. Mild osteoarthritis of the bilateral hips. Report Dictated on Electronically Signed By: Maged Castro Electronically Signed Date/Time: 01/24/2023 4:15 PM T [facility] Patient Name: JONATHAN MOISE : 1950 Exam Date/Time: 01/24/2023 16:00 Procedure: XR HIP 2 OR 3 VW LEFT Ordering Provider: HICKS NICHOLAS Reason For Exam: PAIN LEFT HIP CLINICAL INDICATION: Left hip pain A single AP view of the pelvis followed by AP and lateral views of the left hip were obtained. COMPARISON: None FINDINGS: No fracture or dislocation of the pelvis or left hip is identified. Mild loss of joint space and acetabular spurring is noted within the left and right hip joints. The sacroiliac joints appear grossly unremarkable. No lytic or blastic bony lesions are seen. Scattered iliac and femoral vascular calcification is noted. [facility] Maged Castro MD - 01/24/2023 Patient Name: JONATHAN MOISE : 1950 Exam Date/Time: 01/24/2023 16:00 Procedure: XR HIP 2 OR 3 VW LEFT Ordering Provider: HICKS NICHOLAS Reason For Exam: PAIN LEFT HIP CLINICAL INDICATION: Left hip pain A single AP view of the pelvis followed by AP and lateral views of the left hip were obtained. COMPARISON: None FINDINGS: No fracture or dislocation of the pelvis or left hip is identified. Mild loss of joint space and acetabular spurring is noted within the left and right hip joints. The sacroiliac joints appear grossly unremarkable. No lytic or blastic bony lesions are seen. Scattered iliac and femoral vascular calcification is noted. IMPRESSION: No fracture or dislocation of the pelvis or left hip. Mild osteoarthritis of the bilateral hips. Report Dictated on Electronically Signed By: Maged Castro Electronically Signed Date/Time: 01/24/2023 4:15 PM EDT [facility] Study observation (narrative) [facility] XR Hip - left 3 ViewsOrdered By: Maged Castro on 01-24-2023 [employer] Work Phone: XR Lumbar spine 2 or 3 Views on 01-24-2023 Mild compression deformity of L1 vertebral body. The age of this is uncertain, however does not appear to have been present on a CT of the chest from 2017. Moderate diffuse degenerative changes of the lumbar spine. The bones are osteopenic. Report Dictated on Electronically Signed By: Maged Castro Electronically Signed Date/Time: 01/24/2023 4:19 PM EDT [facility] Patient Name: JONATHAN MOISE : 1950 Exam Date/Time: 01/24/2023 16:00 Procedure: XR LUMBAR SPINE 2-3 VIEWS Ordering Provider: HICKS NICHOLAS Reason For Exam: PAIN LUMBAR SPINE CLINICAL INDICATION: Back pain AP and lateral plain films of the lumbar spine were obtained. An additional coned down view of L5/S1 was also performed in the lateral projection. COMPARISON: None. FINDINGS: The bones are osteopenic. There is a slight S-shaped scoliosis of the lower thoracic and lumbar spine. There appears to be mild loss of height of the L1 vertebral body, age uncertain. There is moderate, diffuse loss of intervertebral disc space height and degenerative endplate spurring throughout the lumbar spine. Moderate facet hypertrophic changes are also noted diffusely. Aortoiliac vascular calcification is present. There are mild degenerative changes of the sacroiliac joints. No lytic or blastic lesions are seen. [facility] Maged Castro MD - 01/24/2023 Patient Name: JONATHAN MOISE : 1950 Exam Date/Time: 01/24/2023 16:00 Procedure: XR LUMBAR SPINE 2-3 VIEWS Ordering Provider: HICKS NICHOLAS Reason For Exam: PAIN LUMBAR SPINE CLINICAL INDICATION: Back pain AP and lateral plain films of the lumbar spine were obtained. An additional coned down view of L5/S1 was also performed in the lateral projection. COMPARISON: None. FINDINGS: The bones are osteopenic. There is a slight S-shaped scoliosis of the lower thoracic and lumbar spine. There appears to be mild loss of height of the L1 vertebral body, age uncertain. There is moderate, diffuse loss of intervertebral disc space height and degenerative endplate spurring throughout the lumbar spine. Moderate facet hypertrophic changes are also noted diffusely. Aortoiliac vascular calcification is present. There are mild degenerative changes of the sacroiliac joints. No lytic or blastic lesions are seen. IMPRESSION: Mild compression deformity of L1 vertebral body. The age of this is uncertain, however does not appear to have been present on a CT of the chest from 2017. Moderate diffuse degenerative changes of the lumbar spine. The bones are osteopenic. Report Dictated on Electronically Signed By: Maged Castro Electronically Signed Date/Time: 01/24/2023 4:19 PM EDT [facility] Radiology Study observation (narrative) [facility] 12 Lead EKGon 05-29-2022 12 Lead EKG [facility] Cardiovascular Services [address] [place] [address] 12 Lead EKG 05/29/22 1657 MR#: [id number] Acct: [id number] Name: CHRISTY MOISE Rep #: [id number] : 1950 71 From: Yousif Mendoza MD Attending Dr: Status: DEP ER Ordering Dr: Logan Morel MD Date: 05/29/22 Location: ED Sex: F C Admitted: Test Reason : CP Blood Pressure : / mmHG Vent. Rate : 175 BPM Atrial Rate : 000 BPM P-R Int : 000 ms QRS Dur : 076 ms QT Int : 280 ms P-R-T Axes : 000 045 216 degrees QTc Int : 477 ms Atrial fibrillation with rapid ventricular response Cannot rule out Anterior infarct , age undetermined ST T wave abnormality, consider inferolateral ischemia Abnormal ECG Confirmed by YOUSIF MENDOZA MD ([id number]), offline editor JULIUS DE LA ROSA ([id number]) on 05/31/2022 9:32:58 AM Referred By: Confirmed By:YOUSIF MENDOZA MD 05/31/22932 Date Yousif Mendoza MD CC: Dr. Logan Morel MD; Dr. Adarsh Duggan MD Signed Normal [facility] Absolute lymphocyte counton 05-29-2022 Lymphocytes Auto (Unsp spec) [#/Vol] 1.25 10*3/uL 0.83-4.51 [facility] Work Phone: Basic Metabolic Profile (BMP )on 05-29-2022 BUN/CRE 24.4 RATIO High 10-20 [facility] Comment on above: Order Comment: 1Y Performed By: #### L 100.0100, L500.2500, L501.5425 ####[facility] [address] [place], [address] CA,Total 9.1 mg/dL Normal 8.5-10.1 [facility] Comment on above: Order Comment: 1Y Performed By: #### L 100.0100, L500.2500, L501.5425 ####[facility] [address] [place], [address] Chloride [Moles/Vol] 102 mmol/L Normal 98-107 [facility] Comment on above: Order Comment: 1Y Performed By: #### L 100.0100, L500.2500, L501.5425 ####[facility] [address] [place], [address] CO2 [Moles/Vol] 27.0 mmol/L Normal 21.0-32.0 [facility] Comment on above: Order Comment: 1Y Performed By: #### L 100.0100, L500.2500, L501.5425 ####[facility] [address] [place], [address] Creatinine [Mass/Vol] 0.90 mg/dL Normal 0.55-1.02 [facility] Comment on above: Order Comment: 1Y Result Comment: The validity of the calculated GFR GFRAA in patients over 70 years has not been determined. Clinical correlation is essential. Performed By: #### L 100.0100, L500.2500, L501.5425 ####[facility] [address] [place], [address] ECRCL 56.23 ml/min Normal [facility] Comment on above: Order Comment: 1Y Performed By: #### L 100.0100, L500.2500, L501.5425 ####[facility] [address] [place], [address] EST GFR - AA 79 mL/min Normal >60 [facility] Comment on above: Order Comment: 1Y Result Comment: Afri can Norwegian GFR Calc Performed By: #### L 100.0100, L500.2500, L501.5425 ####[facility] [address] [place], [address] GAP 11 Normal 5-15 [facility] Comment on above: Order Comment: 1Y Performed By: #### L 100.0100, L500.2500, L501.5425 ####[facility] [address] [place], [address] GFR/1.73 sq M.predicted among non-blacks MDRD (S/P/Bld) [Vol rate/Area] 66 mL/min/{1.73_m2} Normal >60 [facility] Comment on above: Order Comment: 1Y Result Comment: Non- GFR Calc Performed By: #### L 100.0100, L500.2500, L501.5425 ####[facility] [address] [place], [address] Glucose [Mass/Vol] 120 mg/dL High 74-106 [facility] Comment on above: Order Comment: 1Y Result Comment: Fast ing Glucose result from 100 to 125 mg/dL suggests IMPAIRED HOMEOSTASIS per A.D.A. criteria. Performed By: #### L 100.0100, L500.2500, L501.5425 ####[facility] [address] [place], [address] Potassium [Moles/Vol] 3.5 mmol/L Normal 3.5-5.1 [facility] Comment on above: Order Comment: 1Y Performed By: #### L 100.0100, L500.2500, L501.5425 ####[facility] [address] [place], [address] Sodium [Moles/Vol] 140 mmol/L Normal 136-145 [facility] Comment on above: Order Comment: 1Y Performed By: #### L 100.0100, L500.2500, L501.5425 ####[facility] [address] [place], [address] Urea nitrogen [Mass/Vol] 22 mg/dL High 7-18 [facility] Comment on above: Order Comment: 1Y Performed By: #### L 100.0100, L500.2500, L501.5425 ####[facility] [address] [place], [address] Basophil percentageon 05-29- 2021 Basophils/100 WBC (Bld) 0.2 % 0-1 [facility] Work Phone: Chloride [Moles/Vol] 102 mmol/L 98-107 [facility] Work Phone: Eosinophils/100 WBC (Bld) 0.2 % 0-5 [facility] Work Phone: Glucose [Mass/Vol] 120 mg/dL 74-106 [facility] Work Phone: Comment on above: Fasting Glucose resu lt from 100 to 125 mg/dL suggests IMPAIRED HOMEOSTASIS per A.D.A. criteria. Neutrophils (Bld) [#/Vol] 3.1 10*3/uL 2.0-7.7 [facility] Work Phone: Neutrophils/100 WBC (Bld) 59.9 % 47-70 [facility] Work Phone: [phone] Potassium [Moles/Vol] 3.5 mmol/L 3.5-5.1 [facility] Work Phone: [phone] Sodium [Moles/Vol] 140 mmol/L 136-145 [facility] Work Phone: [phone] WBC (Bld) [#/Vol] 5.2 10*3/uL 4.4-11.0 [facility] Work Phone: [phone] Blood erythrocytes count (nu mber/volume)on 05-29-2022 RBC (Bld) [#/Vol] 4.60 10*6/uL 4.2-5.4 [facility] Work Phone: Blood hemoglobin measurement (mass/volume)on 05-29-2022 Hemoglobin (Bld) [Mass/Vol] 14.6 g/dL 12.0-15.0 [facility] Work Phone: Blood lymphocytes/100 leukoc yteson 05-29-2022 Lymphocytes/100 WBC (Bld) 24.2 % 19-41 [facility] Work Phone: [phone] Blood monocytes/100 leukocyt eson 05-29-2022 Monocytes/100 WBC (Bld) 15.3 % 0-10 [facility] Work Phone: Blood platelet mean volumeon 05-29-2022 Platelet mean volume (Bld) [Entitic vol] 11.0 fL 6.2-12.0 [facility] Work Phone: CBC W/Diff, Automatedon 05-15 Absolute Lymph 1.25 X10 3/uL Normal 0.83-4.51 [facility] Comment on above: Performed By: #### L 100.0100, L500.2500, L501.5425 #### [facility] [address] [place], [address] Absolute Neut 3.1 X10 3/uL Normal 2.0-7.7 [facility] Comment on above: Performed By: #### L 100.0100, L500.2500, L501.5425 #### [facility] [address] [place], [address] Basophils/100 WBC (Bld) 0.2 % Normal 0-1 [facility] Comment on above: Performed By: #### L 100.0100, L500.2500, L501.5425 #### [facility] [address] [place], [address] Eosinophils/100 WBC (Bld) 0.2 % Normal 0-5 [facility] Comment on above: Performed By: #### L 100.0100, L500.2500, L501.5425 #### [facility] [address] [place], [address] Erythrocyte distribution width (RBC) [Ratio] 13.7 % Normal 11.6-14.6 [facility] Comment on above: Performed By: #### L 100.0100, L500.2500, L501.5425 #### [facility] [address] [place], [address] Hematocrit (Bld) [Volume fraction] 44.2 % Normal 37-47 [facility] Comment on above: Performed By: #### L 100.0100, L500.2500, L501.5425 #### [facility] [address] [place], [address] Hemoglobin (Bld) [Mass/Vol] 14.6 g/dL Normal 12.0-15.0 [facility] Comment on above: Performed By: #### L 100.0100, L500.2500, L501.5425 #### [facility] [address] [place], [address] IG% 0.200 Normal 0.0-0.9 [facility] Comment on above: Result Comment: IG% - Immature Granulocytes (promyelocytes, myelocytes and metamyelocytes) > 1% indicates that a LEFT SHIFT is Present. Performed By: #### L 100.0100, L500.2500, L501.5425 #### [facility] [address] [place], [address] Lymphocytes/100 WBC (Bld) 24.2 % Normal 19-41 [facility] Comment on above: Performed By: #### L 100.0100, L500.2500, L501.5425 #### [facility] [address] [place], [address] MCH (RBC) [Entitic mass] 31.7 pg Normal 27.0-32.0 [facility] Comment on above: Performed By: #### L 100.0100, L500.2500, L501.5425 #### [facility] [address] [place], [address] MCHC (RBC) [Mass/Vol] 33.0 g/dL Normal 32-36 [facility] Comment on above: Performed By: #### L 100.0100, L500.2500, L501.5425 #### [facility] [address] [place], [address] MCV (RBC) [Entitic vol] 96.1 fL Normal 81-99 [facility] Comment on above: Performed By: #### L 100.0100, L500.2500, L501.5425 #### [facility] [address] [place], [address] Monocytes/100 WBC (Bld) 15.3 % High 0-10 [facility] Comment on above: Performed By: #### L 100.0100, L500.2500, L501.5425 #### [facility] [address] [place], [address] Neutrophils/100 WBC (Bld) 59.9 % Normal 47-70 [facility] Comment on above: Performed By: #### L 100.0100, L500.2500, L501.5425 #### [facility] [address] [place], [address] Nucleated RBC (Bld) [#/Vol] 0 10*3/uL Normal 0-5 [facility] Comment on above: Performed By: #### L 100.0100, L500.2500, L501.5425 #### [facility] [address] [place], [address] Platelet mean volume (Bld) [Entitic vol] 11.0 fL Normal 6.2-12.0 [facility] Comment on above: Performed By: #### L 100.0100, L500.2500, L501.5425 #### [facility] [address] [place], [address] Platelets (Bld) [#/Vol] 187 10*3/uL Normal 150-450 [facility] Comment on above: Performed By: #### L 100.0100, L500.2500, L501.5425 #### [facility] [address] [place], [address] RBC (Bld) [#/Vol] 4.60 10*6/uL Normal 4.2-5.4 [facility] Comment on above: Performed By: #### L 100.0100, L500.2500, L501.5425 #### [facility] [address] [place], [address] RDW SD 48.8 fl High 35.1-43.9 [facility] Comment on above: Performed By: #### L 100.0100, L500.2500, L501.5425 #### [facility] [address] [place], [address] WBC (Bld) [#/Vol] 5.2 10*3/uL Normal 4.4-11.0 [facility] Comment on above: Performed By: #### L 100.0100, L500.2500, L501.5425 #### [facility] [address] [place], [address] Chest 1 View (Portable)on Chest 1 View (Portable) [facility] Imaging Services [address] [place] [address] Chest 1 View (Portable) MR#: [id number] Acct: [id number] Name: CHRISTY MOISE Rep #: [id number] : 1950 F 71 From: Carlos Funes MD PCP: Dr. Adarsh Duggan MD Status: REG ER Study: Chest 1 View (Portable) Date of Exam: 05/29/22 Exam# [id number] Ordering Dr: Logan Morel MD EXAM: XR CHEST, 1 VIEW CLINICAL INDICATION: chest pain TECHNIQUE: Frontal view of the chest. This report was created using [employer] report generation technology. COMPARISON: 12/18/2021 FINDINGS: LUNGS AND PLEURAL SPACES: There is minimal bibasilar opacities which may represent scar. No pneumothorax. No effusion. HEART: Unremarkable. Cardiac silhouette not enlarged. MEDIASTINUM: Central airways and mediastinal contour are unremarkable. BONES/JOINTS: Unremarkable. SOFT TISSUES: Unremarkable. RAD/Chest 1 View (Portable) IMPRESSION: Stable bibasilar opacities which may represent scar. There has been no change from reference exam. Electronically Signed: Carlos Funes MD at 18:00 EDT , CC: Dr. Logan Morel MD; Dr. Adarsh Duggan MD Manager Telecom: Signed Normal [facility] Determination of erythrocyte mean corpuscular volume (MCV)on 05-29-2022 MCV (RBC) [Entitic vol] 96.1 fL 81-99 [facility] Work Phone: Emergency Department Summary on 05-29-2022 Emergency Department Summary [facility] Medical Records Department [address] [place] [address] Emergency Department Summary 05/29/22 MR#: [id number] Acct: [id number] Name: CHRISTY MOISE Rep #: [id number] : 1950 71 From: Logan Morel MD PCP: Dr. Adarsh Duggan MD Status:REG ER Location: ED HPI History of Present Illness Chief Complaint: Chest Pain Narrative Narrative: Patient with past medical history of atrial fibrillation, on metoprolol, presents with rapid heart rate, palpitations, and chest pain that began approximately 45 minutes to an hour ago. She states that she is on a blood thinner but cannot recall which 1, but then remembered that it is Eliquis. She missed last evening's dose and this morning's because she states she was "so sick". She had left-sided neck pain yesterday that was incapacitating her. She presents with rapid heart rate and chest pain similar to when she has been in atrial fibrillation before. She denies any leg swelling. No shortness of breath, no other symptoms. She states this feels exactly like when she goes into "A. fib". [facility] Medical History Anemia 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 Atrial fibrillation with RVR (02/06/22) COPD (chronic obstructive pulmonary disease) Depression Essential hypertension GERD (gastroesophageal reflux disease) History of ST elevation myocardial infarction (STEMI) (05/08/18) Hyperlipidemia Irritable bowel Left atrial enlargement Myoclonic disorder Paroxysmal atrial fibrillation Secondary pulmonary hypertension Sigmoid diverticulitis Thyroid nodule Tobacco abuse Home Medications tramadol 50 mg tablet 1 tab PO BID PRN Pain 04/19/19 [History Last Taken 12/15/21] lisinopril 20 mg tablet 20 mg PO DAILY blood pressure 01/08/21 [History Last Taken 12/18/21] budesonide-formoterol HFA 160 mcg-4.5 mcg/actuation aerosol inhaler 2 puff inhalation BID copd 02/05/21 [History Last Taken 12/14/21] albuterol sulfate 90 mcg/actuation aerosol inhaler 2 puff inhalation Q4H PRN PRN Sob /Or Wheezing #8.5 grams 08/06/21 [Rx Last Taken 12/16/21] dronedarone 400 mg tablet (Multaq) 400 mg PO BID directions corrected: should be twice daily #60 tabs 08/14/21 [Rx Last Taken Unknown] clonazepam 2 mg tablet 2 mg PO BID PRN Anxiety 12/18/21 [History Last Taken 12/16/21] apixaban 5 mg tablet (Eliquis) 5 mg PO BID #180 tabs 01/03/22 [Rx Last Taken Unknown] aspirin 81 mg capsule 81 mg PO DAILY #90 caps 01/03/22 [Rx Last Taken Unknown] metoprolol tartrate 100 mg tablet 100 mg PO BID 30 days #180 tabs 01/03/22 [Rx Last Taken Unknown] amoxicillin 500 mg-potassium clavulanate 125 mg tablet (Augmentin) 1 tab PO BID 7 days #14 tabs 02/07/22 [Rx Last Taken Unknown] hydrochlorothiazide 25 mg tablet 25 mg PO DAILY blood pressure #30 tabs 02/07/22 [Rx Last Taken Unknown] Allergy/AdvReac Type Severity Reaction Status Date / Time levofloxacin [From Levaquin] Allergy Rash Verified 05/29/22 16:59 phenytoin [From Dilantin] Allergy Swelling Verified 05/29/22 16:59 sertraline AdvReac Intermediate anxiety Verified 05/29/22 16:59 Family History Mother Hypertension CVA (cerebral vascular accident) CAD (coronary artery disease) Father Colon cancer Leukemia Throat cancer Surgical History History of breast lump removal History of cardioversion (06/2021) History of coronary artery stent placement (05/08/18) History of left heart catheterization (10/04/14) History of lobectomy of thyroid History of radiofrequency ablation procedure for cardiac arrhythmia (02/03/22) History of thyroidectomy History of total abdominal hysterectomy Social History housing: house number of children: 1 Smoking Status: Heavy Smoker (>10/day) Tobacco: How many years used: 50 alcohol intake: never substance use type: does not use ROS ROS ED ROS Narrative Constitutional: No fever, no chills. HEENT: No sore throat. No neck pain. No loss of vision. No rhinorrhea. Cardiovascular: Positive chest pain. Positive palpitations. No pedal edema. Respiratory: No cough, no shortness of breath. Abdominal: No abdominal pain. No nausea. No vomiting. Genitourinary: No dysuria. No hematuria. Musculoskeletal: No myalgias. No arthralgias. Neurologic: No headaches. No dizziness. No lightheadedness. Skin: No rash. No change in color. Psychiatric: No depression. No anxiety. EXAM Physical Exam Narrative Exam Narrative: Afebrile. Vital signs noted. HEENT: Normocephalic. Atraumatic. PERRL, EOMI. Neck soft and supple. No point tenderness or step off. Cardiovascular: Irregularly irregular tachycardia in the 160s. No murmurs, rubs, o (more content not included)... Normal [facility] Hematocrit Auto (Bld) [Volum e fraction]on 05-29-2022 Hematocrit (Bld) [Volume fraction] 44.2 % 37-47 [facility] Work Phone: [phone] 05-29-2022 TROPONIN-I HS 34 pg/mL Normal 3.0-54.0 [facility] Comment on above: Order Comment: 1Y Result Comment: Michi walker Note: New Test Units and Gender Specific Reference Ranges. For more information see Policy Stat Procedure [place] High Sensitivity Troponin (TNIH) and attachments. Performed By: #### L 100.0100, L500.2500, L501.5425 ####[facility] [id number] [place], [place], [id number] Laboratory - Chemistry and C hemistry - challengeon 05-29-2022 CO2 [Moles/Vol] 27.0 mmol/L 21.0-32.0 [facility] Work Phone: Urea nitrogen/Creatinine [Mass ratio] 24.4 mg/mg 10-20 [facility] Work Phone: Laboratory - Hematology and Cell countson 05-29-2022 Erythrocyte distribution width (RBC) [Entitic vol] 48.8 fL 35.1-43.9 [facility] Work Phone: Erythrocyte distribution width (RBC) [Ratio] 13.7 % 11.6-14.6 [facility] Work Phone: Immature granulocytes/100 WBC (Bld) 0.200 % 0.0-0.9 [facility] Work Phone: Comment on above: IG% - Immature Granu locytes (promyelocytes, myelocytes and metamyelocytes) > 1% indicates that a LEFT SHIFT is Present. MCH (RBC) [Entitic mass] 31.7 pg 27.0-32.0 [facility] Work Phone: Nucleated RBC/100 WBC (Bld) [Ratio] 0 % 0-5 [facility] Work Phone: MCHC Auto (RBC) [Mass/Vol]on 05-29-2022 MCHC (RBC) [Mass/Vol] 33.0 g/dL 32-36 [facility] Work Phone: No Panel Informationon 05-29 Estimated Creatinine Clearance Calc 56.23 ml/min [facility] Work Phone: Estimated GFR (MDRD) Amer 79 mL/min >60 [facility] Work Phone: Comment on above: GFR Calc Estimated GFR (MDRD) Non-Af Amer 66 mL/min >60 [facility] Work Phone: Comment on above: Non- GFR Calc Troponin I High Sensitivity 34 pg/mL 3.0-54.0 [facility] Work Phone: Comment on above: Please Note: [place] t Units and Gender Specific Reference Ranges. For more information see Policy Stat Procedure [place] High Sensitivity Troponin (TNIH) and attachments. Platelets bldon 05-29-2022 Platelets (Bld) [#/Vol] 187 10*3/uL 150-450 [facility] Work Phone: Serum or plasma calcium evelin urement (mass/volume)on 05-29-2022 Calcium [Mass/Vol] 9.1 mg/dL 8.5-10.1 [facility] Work Phone: Serum or plasma creatinine m easurement (mass/volume)on 05-29-2022 Creatinine [Mass/Vol] 0.90 mg/dL 0.55-1.02 [facility] Work Phone: Comment on above: The validity of the calculated GFR & GFRAA in patients over 70 years has not been determined. Clinical correlation is essential. Serum or plasma urea nitroge n measurement (mass/volume)on 05-29-2022 Urea nitrogen [Mass/Vol] 22 mg/dL 03-31 [facility] Work Phone: Thin prep Papanicolaou smear with manual screeningon 05-29-2022 Thin prep Papanicolaou smear with manual screening 01-26 [facility] Work Phone: 12 Lead EKGon 05-25-2022 12 Lead EKG [facility] Cardiovascular Services [address] [place] [address] 12 Lead EKG 05/25/22 1120 MR#: [id number] Acct: [id number] Name: CHRISTY MOISE Rep #: [id number] : 1950 71 From: Yousif Mendoza MD Attending Dr: Status: DEP ER Ordering Dr: Luis Monzon DO Date: 05/25/22 Location: ED Sex: F C Admitted: Test Reason : DIZZINESS Blood Pressure : / mmHG Vent. Rate : 068 BPM Atrial Rate : 068 BPM P-R Int : 158 ms QRS Dur : 076 ms QT Int : 452 ms P-R-T Axes : 056 053 095 degrees QTc Int : 480 ms Normal sinus rhythm Nonspecific T wave abnormality Abnormal ECG Confirmed by YOUSIF MENDOZA MD ([id number]), offline editor LUH CUTLER ([id number]) on 05/26/2022 10:20:30 AM Referred By: ES Confirmed By:YOUSIF MENDOZA MD 05/26/22 1020 Date Yousif Mendoza MD CC: Dr. Adarsh Duggan MD; Dr. Luis Monzon DO Signed Normal [facility] Basic Metabolic Profile (BMP )on 05-25-2022 BUN Normal 03-31 [facility] Comment on above: Order Comment: 'TROP ' Serial specimen #1, #2 or #3: 1 Result Comment: ADELA ENT DISCHARGED Performed By: #### L 500.2500, L100.0100 #### [facility] [address] [place], [address] BUN/CRE Normal 10-20 [facility] Comment on above: Order Comment: 'TROP ' Serial specimen #1, #2 or #3: 1 Result Comment: ADELA ENT DISCHARGED Performed By: #### L 500.2500, L100.0100 #### [facility] [address] [place], [address] CA,Total Normal 8.5-10.1 [facility] Comment on above: Order Comment: 'TROP ' Serial specimen #1, #2 or #3: 1 Result Comment: ADELA ENT DISCHARGED Performed By: #### L 500.2500, L100.0100 #### [facility] [address] [place], [address] CL Normal 98-107 [facility] Comment on above: Order Comment: 'TROP ' Serial specimen #1, #2 or #3: 1 Result Comment: ADELA ENT DISCHARGED Performed By: #### L 500.2500, L100.0100 #### [facility] [address] [place], [address] CO2 Normal 21.0-32.0 [facility] Comment on above: Order Comment: 'TROP ' Serial specimen #1, #2 or #3: 1 Result Comment: ADELA ENT DISCHARGED Performed By: #### L 500.2500, L100.0100 #### [facility] [address] [place], [address] CREAT,SERUM Normal 0.55-1.02 [facility] Comment on above: Order Comment: 'TROP ' Serial specimen #1, #2 or #3: 1 Result Comment: ADELA ENT DISCHARGED Performed By: #### L 500.2500, L100.0100 #### [facility] [address] [place], [address] EST GFR Normal >60 [facility] Comment on above: Order Comment: 'TROP ' Serial specimen #1, #2 or #3: 1 Result Comment: ADELA ENT DISCHARGED Performed By: #### L 500.2500, L100.0100 #### [facility] [address] [place], [address] EST GFR - AA Normal >60 [facility] Comment on above: Order Comment: 'TROP ' Serial specimen #1, #2 or #3: 1 Result Comment: ADELA ENT DISCHARGED Performed By: #### L 500.2500, L100.0100 #### [facility] [address] [place], [address] GAP Normal 5-15 [facility] Comment on above: Order Comment: 'TROP ' Serial specimen #1, #2 or #3: 1 Result Comment: ADELA ENT DISCHARGED Performed By: #### L 500.2500, L100.0100 #### [facility] [address] [place], [address] GLU Normal 74-106 [facility] Comment on above: Order Comment: 'TROP ' Serial specimen #1, #2 or #3: 1 Result Comment: ADELA ENT DISCHARGED Performed By: #### L 500.2500, L100.0100 #### [facility] [address] [place], [address] Potassium Normal 3.5-5.1 [facility] Comment on above: Order Comment: 'TROP ' Serial specimen #1, #2 or #3: 1 Result Comment: ADELA ENT DISCHARGED Performed By: #### L 500.2500, L100.0100 #### [facility] [address] [place], [address] Basic Metabolic Profile (BMP) Normal 136-145 [facility] Comment on above: Order Comment: 'TROP ' Serial specimen #1, #2 or #3: 1 Result Comment: ADELA ENT DISCHARGED Performed By: #### L 500.2500, L100.0100 #### [facility] [address] [place], [address] CBC W/Diff, Automatedon 09-1 Absolute Neut Normal 2.0-7.7 [facility] Comment on above: Result Comment: ADELA ENT DISCHARGED Performed By: #### L 500.2500, L100.0100 #### [facility] [address] [place], [address] HCT Normal 37-47 [facility] Comment on above: Result Comment: ADELA ENT DISCHARGED Performed By: #### L 500.2500, L100.0100 #### [facility] [address] [place], [address] HGB Normal 12.0-15.0 [facility] Comment on above: Result Comment: ADELA ENT DISCHARGED Performed By: #### L 500.2500, L100.0100 #### [facility] [address] [place], [address] MCH Normal 27.0-32.0 [facility] Comment on above: Result Comment: ADELA ENT DISCHARGED Performed By: #### L 500.2500, L100.0100 #### [facility] [address] [place], [address] MCHC Normal 32-36 [facility] Comment on above: Result Comment: ADELA ENT DISCHARGED Performed By: #### L 500.2500, L100.0100 #### [facility] [address] [place], [address] MCV Normal 81-99 [facility] Comment on above: Result Comment: ADELA ENT DISCHARGED Performed By: #### L 500.2500, L100.0100 #### [facility] [address] [place], [address] NEUT% Normal 47-70 [facility] Comment on above: Result Comment: ADELA ENT DISCHARGED Performed By: #### L 500.2500, L100.0100 #### [facility] [address] [place], [address] PLT Normal 150-450 [facility] Comment on above: Result Comment: ADELA ENT DISCHARGED Performed By: #### L 500.2500, L100.0100 #### [facility] [address] [place], [address] RBC Normal 4.2-5.4 [facility] Comment on above: Result Comment: ADELA ENT DISCHARGED Performed By: #### L 500.2500, L100.0100 #### [facility] [address] [place], [address] RDW CV Normal 11.6-14.6 [facility] Comment on above: Result Comment: ADELA ENT DISCHARGED Performed By: #### L 500.2500, L100.0100 #### [facility] [address] [place], [address] RDW SD Normal 35.1-43.9 [facility] Comment on above: Result Comment: ADELA ENT DISCHARGED Performed By: #### L 500.2500, L100.0100 #### [facility] [address] [place], [address] WBC Normal 4.4-11.0 [facility] Comment on above: Result Comment: ADELA ENT DISCHARGED Performed By: #### L 500.2500, L100.0100 #### [facility] [address] [place], [address] Emergency Department Summary on 05-25-2022 Emergency Department Summary [facility] Medical Records Department [address] [place] [address] Emergency Department Summary 05/25/22 MR#: [id number] Acct: [id number] Name: CHRISTY MOISE Rep #: [id number] : 1950 71 From: Luis Monzon DO PCP: Dr. Adarsh Duggan MD Status:DEP ER Location: ED HPI History of Present Illness Chief Complaint: Dizziness Detail of Chief Complaint: Nausea and vomiting Informant: patient and family Onset/Context/Timing Onset: Today Context: Sudden Onset Timing: Continuous Quality: Aching Location: Neck Worsened by: Movement Relieved by: Nothing Narrative Narrative: Patient presents with nausea and vomiting that began today. Patient states it came on rather suddenly while she was at work today. Patient works at a [employer] and was evaluated by a nurse at the facility. Patient states they told her she was in atrial fibrillation. Patient states she has a history of paroxysmal atrial fibrillation. Patient denies any palpitations. Patient admits to some pain in her neck. Patient states she was seen for this recently and had a CT scan done at a different hospital. Patient states her pain is aching. Patient states it is worse with certain movements. Patient denies any paresthesias or weakness. [facility] Medical History Anemia 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 Atrial fibrillation with RVR (02/06/22) COPD (chronic obstructive pulmonary disease) Depression Essential hypertension GERD (gastroesophageal reflux disease) History of ST elevation myocardial infarction (STEMI) (05/08/18) Hyperlipidemia Irritable bowel Left atrial enlargement Myoclonic disorder Paroxysmal atrial fibrillation Secondary pulmonary hypertension Sigmoid diverticulitis Thyroid nodule Tobacco abuse Home Medications tramadol 50 mg tablet 1 tab PO BID PRN Pain 04/19/19 [History Last Taken 12/15/21] lisinopril 20 mg tablet 20 mg PO DAILY blood pressure 01/08/21 [History Last Taken 12/18/21] budesonide-formoterol HFA 160 mcg-4.5 mcg/actuation aerosol inhaler 2 puff inhalation BID copd 02/05/21 [History Last Taken 12/14/21] albuterol sulfate 90 mcg/actuation aerosol inhaler 2 puff inhalation Q4H PRN PRN Sob /Or Wheezing #8.5 grams 08/06/21 [Rx Last Taken 12/16/21] dronedarone 400 mg tablet (Multaq) 400 mg PO BID directions corrected: should be twice daily #60 tabs 08/14/21 [Rx Last Taken Unknown] clonazepam 2 mg tablet 2 mg PO BID PRN Anxiety 12/18/21 [History Last Taken 12/16/21] apixaban 5 mg tablet (Eliquis) 5 mg PO BID #180 tabs 01/03/22 [Rx Last Taken Unknown] aspirin 81 mg capsule 81 mg PO DAILY #90 caps 01/03/22 [Rx Last Taken Unknown] metoprolol tartrate 100 mg tablet 100 mg PO BID 30 days #180 tabs 01/03/22 [Rx Last Taken Unknown] amoxicillin 500 mg-potassium clavulanate 125 mg tablet (Augmentin) 1 tab PO BID 7 days #14 tabs 02/07/22 [Rx Last Taken Unknown] hydrochlorothiazide 25 mg tablet 25 mg PO DAILY blood pressure #30 tabs 02/07/22 [Rx Last Taken Unknown] Allergy/AdvReac Type Severity Reaction Status Date / Time levofloxacin [From Levaquin] Allergy Rash Verified 05/25/22 11:05 phenytoin [From Dilantin] Allergy Swelling Verified 05/25/22 11:05 sertraline AdvReac Intermediate anxiety Verified 05/25/22 11:05 Family History Mother Hypertension CVA (cerebral vascular accident) CAD (coronary artery disease) Father Colon cancer Leukemia Throat cancer Surgical History History of breast lump removal History of cardioversion (06/2021) History of coronary artery stent placement (05/08/18) History of left heart catheterization (10/04/14) History of lobectomy of thyroid History of radiofrequency ablation procedure for cardiac arrhythmia (02/03/22) History of thyroidectomy History of total abdominal hysterectomy Social History housing: house number of children: 1 Smoking Status: Heavy Smoker (>10/day) Tobacco: How many years used: 50 alcohol intake: never substance use type: does not use ROS ROS ED Constitutional Constitutional ED: Reports chills and subjective; Denies fever(s) Eyes Eyes: Denies blurry vision or change in vision ENT ENT ED: Denies rhinorrhea or sore throat Cardiovascular Cardiovascular: Denies chest pain or palpitations Respiratory/Chest Respiratory/Chest: Reports cough; Denies dyspnea Gastrointestinal Gastrointestinal: Reports nausea and vomiting Genitourinary Genitourinary ED: Denies dysuria or hematuria Musculoskeletal Musculoskeletal: Reports neck pain; Denies back pain Integumentary Denies abscess or rash Neurologic Neurologic: Reports headache(s); D (more content not included)... Normal [facility] CT SOFT TISSUE NECK [facility] 05-24-2022 [facility]: [id number] Tomography ACCESSION EXAM DATE/TIME PROCEDURE ORDERING PROVIDER [id number] 05/24/2022 16:[address] Soft Tissue Neck w/o BRAYAN BERGMAN Contrast CPT code 35549 Reason For Exam (CT Soft Tissue Neck w/o Contrast) left neck pain, "lump" left neck Report EXAMINATION: CT Soft Tissue Neck w/o Contrast EXAM DATE AND TIME: 05/24/2022 4:33 PM EDT INDICATION: Left neck pain, lump COMPARISON: None available. TECHNIQUE: CT imaging of the neck was obtained without intravenous contrast. FINDINGS: A marker is present within the patient's region of palpable concern of the left neck. No definite visualized mass is seen in this area, noting that a contrast-enhanced CT is much more sensitive for evaluation and recommended if symptoms persist. The marker is nearby the left carotid bifurcation and left internal jugular vein. Nasopharynx, oropharynx, hypopharynx, and larynx are normal in appearance. Visualized trachea and esophagus are unremarkable. No suspicious lymph nodes by CT size criteria. The parotid and submandibular glands are normal in appearance. Right thyroid gland and isthmus are within normal limits. Left thyroid gland is hypoplastic or surgically absent. Degenerative changes of the imaged spine, most likely at C6-C7. Extensive emphysematous changes in the lung apices. Atherosclerotic calcification of the aortic arch, takeoff of the great vessels and bilateral carotid bifurcations. IMPRESSION: 1. A marker is present within the patient's region of palpable concern in the left neck. No definite visualized mass is seen in this area, noting that a contrast-enhanced CT is much more sensitive for evaluation and recommended if symptoms persist. 2. The marker is nearby the left internal jugular vein as well as the left carotid artery. Consider further evaluation with vascular ultrasound. 3. Severe emphysema. Computed Tomography Report Report Dictated on --- Final --- Dictating Physician: MD CARRERA NEIL Signed Date and Time: 05/24/2022 4:56 pm Signed by: MD CARRERA NEIL Transcribed Date and Time: 05/24/2022 4:57 [facility] Familia Carrera MD - 05/24/2022 Patient Name: JONATHAN MOISE Computed Tomography ACCESSION EXAM DATE/TIME PROCEDURE ORDERING PROVIDER [id number] 05/24/2022 16:[address] Soft Tissue Neck w/o BRAYAN BERGMAN Contrast CPT code 80628 Reason For Exam (CT Soft Tissue Neck w/o Contrast) left neck pain, "lump" left neck Report EXAMINATION: CT Soft Tissue Neck w/o Contrast EXAM DATE AND TIME: 05/24/2022 4:33 PM EDT INDICATION: Left neck pain, lump COMPARISON: None available. TECHNIQUE: CT imaging of the neck was obtained without intravenous contrast. FINDINGS: A marker is present within the patient's region of palpable concern of the left neck. No definite visualized mass is seen in this area, noting that a contrast-enhanced CT is much more sensitive for evaluation and recommended if symptoms persist. The marker is nearby the left carotid bifurcation and left internal jugular vein. Nasopharynx, oropharynx, hypopharynx, and larynx are normal in appearance. Visualized trachea and esophagus are unremarkable. No suspicious lymph nodes by CT size criteria. The parotid and submandibular glands are normal in appearance. Right thyroid gland and isthmus are within normal limits. Left thyroid gland is hypoplastic or surgically absent. Degenerative changes of the imaged spine, most likely at C6-C7. Extensive emphysematous changes in the lung apices. Atherosclerotic calcification of the aortic arch, takeoff of the great vessels and bilateral carotid bifurcations. IMPRESSION: 1. A marker is present within the patient's region of palpable concern in the left neck. No definite visualized mass is seen in this area, noting that a contrast-enhanced CT is much more sensitive for evaluation and recommended if symptoms persist. 2. The marker is nearby the left internal jugular vein as well as the left carotid artery. Consider further evaluation with vascular ultrasound. 3. Severe emphysema. Computed Tomography Report Report Dictated on --- Final --- Dictating Physician: MD CARRERA NEIL Signed Date and Time: 05/24/2022 4:56 pm Signed by: MD CARRERA NEIL Transcribed Date and Time: 05/24/2022 4:57 [facility] Work Phone: Radiology Study observation (narrative) [facility] Work Phone: CT SOFT TISSUE NECK WO CONTR ASTOrdered By: Familia Carrera on 05-24-2022 [facility]: CT Soft Tissue Neck w/o Cont yousuf 05-24-2022 CT Soft Tissue Neck w/o Contrast [facility]: [id number] Computed Tomography ACCESSION EXAM DATE/TIME PROCEDURE ORDERING PROVIDER [id number] 05/24/2022 16:[address] Soft Tissue Neck w/o BRAYAN BERGMAN Contrast CPT code 69074 Reason For Exam (CT Soft Tissue Neck w/o Contrast) left neck pain, "lump" left neck Report EXAMINATION: CT Soft Tissue Neck w/o Contrast EXAM DATE AND TIME: 05/24/2022 4:33 PM EDT INDICATION: Left neck pain, lump COMPARISON: None available. TECHNIQUE: CT imaging of the neck was obtained without intravenous contrast. FINDINGS: A marker is present within the patient's region of palpable concern of the left neck. No definite visualized mass is seen in this area, noting that a contrast-enhanced CT is much more sensitive for evaluation and recommended if symptoms persist. The marker is nearby the left carotid bifurcation and left internal jugular vein. Nasopharynx, oropharynx, hypopharynx, and larynx are normal in appearance. Visualized trachea and esophagus are unremarkable. No suspicious lymph nodes by CT size criteria. The parotid and submandibular glands are normal in appearance. Right thyroid gland and isthmus are within normal limits. Left thyroid gland is hypoplastic or surgically absent. Degenerative changes of the imaged spine, most likely at C6-C7. Extensive emphysematous changes in the lung apices. Atherosclerotic calcification of the aortic arch, takeoff of the great vessels and bilateral carotid bifurcations. IMPRESSION: 1. A marker is present within the patient's region of palpable concern in the left neck. No definite visualized mass is seen in this area, noting that a contrast-enhanced CT is much more sensitive for evaluation and recommended if symptoms persist. 2. The marker is nearby the left internal jugular vein as well as the left carotid artery. Consider further evaluation with vascular ultrasound. 3. Severe emphysema. Computed Tomography Report Report Dictated on Final Dictating Physician: MD CARRERA NEIL Signed Date and Time: 05/24/2022 4:56 pm Signed by: MD CARRERA NEIL Transcribed Date and Time: 05/24/2022 4:57 Normal [facility] 02-19-2022 [facility] Telephone (AGCARDPOB ) CHRISTY MOISE ([id number]) 1950 F Date Time Provider Department 02/19/22 CARYN WOOD AGCARDPOB During your visit today, we recorded the following information about you: Driss Joya 02/19/2022 10:53 AM Signed Post PVAI orders pended for signature - office will call to schedule Driss Joya Allergies As of Date: 02/19/2022 Noted Allergy Reaction SERTRALINE 01/28/2017 14 - Other: See Comments LEVOFLOXACIN 10/02/2014 2 - Rash Comments: Other reaction(s): Rash PHENYTOIN 10/08/2017 7 - Swelling Date Reviewed: 02/03/2022 Reviewed by: Elinor Cardona RN - Fully Assessed Reason for Visit: Orders [681] Primary Visit Diagnosis:Persistent atrial fibrillation (HCC) [I48.19] Other Visit Diagnosis:Dyspnea, unspecified type [R06.00] Order(s):ECHO [089201] Order #: [id number]: 1 FUTURE perflutren lipid microspheres 1.3 mL in NaCl (PF) 0.9% 10 mL injection (DEFINITY)Disp: Rfl: sodium chloride 0.9 % (flush) 10 mL (BD POSIFLUSH)Disp: Rfl: HOLTER MONITOR 24 HOUR [[id number]] Order #: [id number] FUTURE Prescriptions as of 02/19/2022 - ELIQUIS 5 mg tab(s) Take 5 mg by mouth twice daily. - traMADol (ULTRAM) 50 mg tablet Take 50 mg by mouth twice daily as needed for pain. - metoprolol tartrate, short acting, (LOPRESSOR) 100 mg tablet Take 100 mg by mouth twice daily. - lisinopril (ZESTRIL, PRINIVIL) 20 mg tablet Take 1 tablet by mouth once daily. - dronedarone (MULTAQ) 400 mg tab Take 1 tablet by mouth twice daily with meals. - clonazePAM (KLONOPIN) 2 mg tablet Take 2 mg by mouth twice daily as needed for anxiety. - aspirin, enteric coated (ASPIRIN, ENTERIC COATED) 81 mg EC tablet Take 81 mg by mouth. - albuterol HFA (VENTOLIN HFA) 90 mcg/actuation inhaler Inhale 2 puffs into the lungs every 6 hours as needed for Wheezing - hydroCHLOROthiazide (HYDRODIURIL, ESIDRIX) 25 mg tablet Take 25 mg by mouth once daily. Facility-Administered Medications as of 02/19/2022 - perflutren lipid microspheres 1.3 mL in NaCl (PF) 0.9% 10 mL injection (DEFINITY) - sodium chloride 0.9 % (flush) 10 mL (BD POSIFLUSH) Problem List As Of Date 02/19/2022 Noted Resolved Costochondritis [M94.0] 11/20/2015 Paroxysmal atrial fibrillation (HCC) [I48.0] 08/28/2021 half-way current use of antiarrhythmic drug [Z*08/28/2021 At risk for stroke [Z91.89] 08/28/2021 Anticoagulant long-term use [Z79.01] 08/28/2021 Coronary artery disease involving navajo spencer*08/28/2021 History of coronary artery stent placement [Z95*08/28/2021 Anxiety [F41.9] 01/28/2017 Claudication (HCC) [I73.9] 08/24/2019 Essential hypertension [I10] 01/07/2016 Hiatal hernia [K44.9] 09/04/2017 Irritable bowel syndrome [K58.9] 08/28/2021 Myoclonic disorder [G25.3] 08/28/2021 Neuropathy [G62.9] 08/28/2021 S/P angioplasty with stent [Z95.820] 04/04/2019 Secondary pulmonary hypertension [XVT2747] 08/28/2021 Tobacco abuse [Z72.0] 08/28/2021 Chronic obstructive pulmonary disease (HCC) [J4*01/08/2016 Depressive disorder [F32.A] 01/06/2017 Palpitations [R00.2] Fibromyalgia [M79.7] 09/18/2021 Nonrheumatic mitral (valve) insufficiency [I34.*09/18/2021 Nonrheumatic tricuspid (valve) insufficiency [I*09/18/2021 ST-segment elevation myocardial infarction (HARRISON*04/[address] elevation myocardial infarction (*01/21/2022 Status post catheter ablation of atrial fibrill*02/03/2022 Prescriptions ordered this encounter Disp Refills Start End PERFLUTREN LIPID MICROSPHERES 1.1 MG* 02/19/2022 05/21/2023 Route: INTRAVENOUS SODIUM CHLORIDE 0.9 % (FLUSH) INJECT* 02/19/2022 05/21/2023 Route: INTRAVENOUS Encounter Status:Closed by CARYN WOOD on 02/19/22 [facility] 12 Lead EKGon 02-07-2022 12 Lead EKG [facility] Cardiovascular Services [address] [place] [address] 12 Lead EKG 02/07/22 0301 MR#: [id number] Acct: [id number] Name: CHRISTY MOISE Rep #: [id number] : 1950 71 From: Yousif Mendoza MD Attending Dr: Dr. Yeimi Castrejon MD Status: DIS IN Ordering Dr: Edis Vergara MD Date: 02/07/22 Location: ICU Sex: F C Admitted: 02/06/22 Test Reason : Blood Pressure : / mmHG Vent. Rate : 067 BPM Atrial Rate : 067 BPM P-R Int : 154 ms QRS Dur : 084 ms QT Int : 450 ms P-R-T Axes : 037 045 060 degrees QTc Int : 475 ms Normal sinus rhythm Nonspecific ST and T wave abnormality Abnormal ECG Confirmed by REJI GRIMALDO, YOUSIF ([id number]), offline editor JULIUS DE LA ROSA ([id number]) on 02/11/2022 1:04:08 PM Referred By: Confirmed By:YOUSIF MENDOZA MD 02/11/22 1304 Date Yousif Mendoza MD CC: Dr. Yeimi Castrejon MD; Dr. Adarsh Duggan MD; Dr. Edis Vergara MD Signed Normal [facility] Basic Metabolic Profile (BMP )on 02-07-2022 BUN Normal 7-18 [facility] Comment on above: Result Comment: ADELA ENT DISCHARGED. Performed By: #### L 100.0100, L500.2500, L501.4020 #### [facility] [address] [place], [address] BUN/CRE Normal 10-20 [facility] Comment on above: Result Comment: ADELA ENT DISCHARGED. Performed By: #### L 100.0100, L500.2500, L501.4020 #### [facility] [address] [place], [address] CA,Total Normal 8.5-10.1 [facility] Comment on above: Result Comment: ADELA ENT DISCHARGED. Performed By: #### L 100.0100, L500.2500, L501.4020 #### [facility] [address] [place], [address] CL Normal 98-107 [facility] Comment on above: Result Comment: ADELA ENT DISCHARGED. Performed By: #### L 100.0100, L500.2500, L501.4020 #### [facility] [address] [place], [address] CO2 Normal 21.0-32.0 [facility] Comment on above: Result Comment: ADELA ENT DISCHARGED. Performed By: #### L 100.0100, L500.2500, L501.4020 #### [facility] [address] [place], [address] CREAT,SERUM Normal 0.55-1.02 [facility] Comment on above: Result Comment: ADELA ENT DISCHARGED. Performed By: #### L 100.0100, L500.2500, L501.4020 #### [facility] [address] [place], [address] EST GFR Normal >60 [facility] Comment on above: Result Comment: ADELA ENT DISCHARGED. Performed By: #### L 100.0100, L500.2500, L501.4020 #### [facility] [address] [place], [address] EST GFR - AA Normal >60 [facility] Comment on above: Result Comment: ADELA ENT DISCHARGED. Performed By: #### L 100.0100, L500.2500, L501.4020 #### [facility] [address] [place], [address] GAP Normal 5-15 [facility] Comment on above: Result Comment: ADELA ENT DISCHARGED. Performed By: #### L 100.0100, L500.2500, L501.4020 #### [facility] [address] [place], [address] GLU Normal 74-106 [facility] Comment on above: Result Comment: ADELA ENT DISCHARGED. Performed By: #### L 100.0100, L500.2500, L501.4020 #### [facility] [address] [place], [address] Potassium Normal 3.5-5.1 [facility] Comment on above: Result Comment: ADELA ENT DISCHARGED. Performed By: #### L 100.0100, L500.2500, L501.4020 #### [facility] [address] [place], [address] Basic Metabolic Profile (BMP) Normal 136-145 [facility] Comment on above: Result Comment: ADELA ENT DISCHARGED. Performed By: #### L 100.0100, L500.2500, L501.4020 #### [facility] [address] [place], [address] CBC W/Diff, Automatedon 05-2 Absolute Neut Normal 2.0-7.7 [facility] Comment on above: Result Comment: ADELA ENT DISCHARGED. Performed By: #### L 100.0100, L500.2500, L501.4020 #### [facility] [address] [place], [address] HCT Normal 37-47 [facility] Comment on above: Result Comment: ADELA ENT DISCHARGED. Performed By: #### L 100.0100, L500.2500, L501.4020 #### [facility] [address] [place], [address] HGB Normal 12.0-15.0 [facility] Comment on above: Result Comment: ADELA ENT DISCHARGED. Performed By: #### L 100.0100, L500.2500, L501.4020 #### [facility] [address] [place], [address] MCH Normal 27.0-32.0 [facility] Comment on above: Result Comment: ADELA ENT DISCHARGED. Performed By: #### L 100.0100, L500.2500, L501.4020 #### [facility] [address] [place], [address] MCHC Normal 32-36 [facility] Comment on above: Result Comment: ADELA ENT DISCHARGED. Performed By: #### L 100.0100, L500.2500, L501.4020 #### [facility] [address] [place], [address] MCV Normal 81-99 [facility] Comment on above: Result Comment: ADELA ENT DISCHARGED. Performed By: #### L 100.0100, L500.2500, L501.4020 #### [facility] [address] [place], [address] NEUT% Normal 47-70 [facility] Comment on above: Result Comment: ADELA ENT DISCHARGED. Performed By: #### L 100.0100, L500.2500, L501.4020 #### [facility] [address] [place], [address] PLT Normal 150-450 [facility] Comment on above: Result Comment: ADELA ENT DISCHARGED. Performed By: #### L 100.0100, L500.2500, L501.4020 #### [facility] [address] [place], [address] RBC Normal 4.2-5.4 [facility] Comment on above: Result Comment: ADELA ENT DISCHARGED. Performed By: #### L 100.0100, L500.2500, L501.4020 #### [facility] [address] [place], [address] RDW CV Normal 11.6-14.6 [facility] Comment on above: Result Comment: ADELA ENT DISCHARGED. Performed By: #### L 100.0100, L500.2500, L501.4020 #### [facility] [address] [place], [address] RDW SD Normal 35.1-43.9 [facility] Comment on above: Result Comment: ADELA ENT DISCHARGED. Performed By: #### L 100.0100, L500.2500, L501.4020 #### [facility] [address] [place], [address] WBC Normal 4.4-11.0 [facility] Comment on above: Result Comment: ADELA ENT DISCHARGED. Performed By: #### L 100.0100, L500.2500, L501.4020 #### [facility] [address] [place], [address] CNPCorrie 02-07-2022 AMYN Telephone (AGCARDPOB ) CHRISTY MOISE ([id number]) 1950 F Date Time Provider Department 02/07/22 ANDREA JENNINGS AGCARDPOB During your visit today, we recorded the following information about you: Andrea Jennings APRN.[employer] 02/07/2022 2:53 PM Signed Patient underwent cryotherapy PVI with Dr. Wood on 02/03. She will need a follow-up appointment in 3 months. Andrea Kevin Allergies As of Date: 02/07/2022 Noted Allergy Reaction SERTRALINE 01/28/2017 14 - Other: See Comments LEVOFLOXACIN 10/02/2014 2 - Rash Comments: Other reaction(s): Rash PHENYTOIN 10/08/2017 7 - Swelling Date Reviewed: 02/03/2022 Reviewed by: Elinor Cardona, MARIA DEL CARMEN - Fully Assessed Reason for Visit: Appointment [186] Prescriptions as of 02/07/2022 - ELIQUIS 5 mg tab(s) Take 5 mg by mouth twice daily. - traMADol (ULTRAM) 50 mg tablet Take 50 mg by mouth twice daily as needed for pain. - metoprolol tartrate, short acting, (LOPRESSOR) 100 mg tablet Take 100 mg by mouth twice daily. - lisinopril (ZESTRIL, PRINIVIL) 20 mg tablet Take 1 tablet by mouth once daily. - dronedarone (MULTAQ) 400 mg tab Take 1 tablet by mouth twice daily with meals. - clonazePAM (KLONOPIN) 2 mg tablet Take 2 mg by mouth twice daily as needed for anxiety. - aspirin, enteric coated (ASPIRIN, ENTERIC COATED) 81 mg EC tablet Take 81 mg by mouth. - albuterol HFA (VENTOLIN HFA) 90 mcg/actuation inhaler Inhale 2 puffs into the lungs every 6 hours as needed for Wheezing - hydroCHLOROthiazide (HYDRODIURIL, ESIDRIX) 25 mg tablet Take 25 mg by mouth once daily. Problem List As Of Date 02/07/2022 Noted Resolved Costochondritis [M94.0] 11/20/2015 Paroxysmal atrial fibrillation (HCC) [I48.0] 08/28/2021 half-way current use of antiarrhythmic drug [Z*08/28/2021 At risk for stroke [Z91.89] 08/28/2021 Anticoagulant long-term use [Z79.01] 08/28/2021 Coronary artery disease involving navajo spencer*08/28/2021 History of coronary artery stent placement [Z95*08/28/2021 Anxiety [F41.9] 01/28/2017 Claudication (HCC) [I73.9] 08/24/2019 Essential hypertension [I10] 01/07/2016 Hiatal hernia [K44.9] 09/04/2017 Irritable bowel syndrome [K58.9] 08/28/2021 Myoclonic disorder [G25.3] 08/28/2021 Neuropathy [G62.9] 08/28/2021 S/P angioplasty with stent [Z95.820] 04/04/2019 Secondary pulmonary hypertension [EQB1407] 08/28/2021 Tobacco abuse [Z72.0] 08/28/2021 Chronic obstructive pulmonary disease (HCC) [J4*01/08/2016 Depressive disorder [F32.A] 01/06/2017 Palpitations [R00.2] Fibromyalgia [M79.7] 09/18/2021 Nonrheumatic mitral (valve) insufficiency [I34.*09/18/2021 Nonrheumatic tricuspid (valve) insufficiency [I*09/18/2021 ST-segment elevation myocardial infarction (HARRISON*04/[address] elevation myocardial infarction (*01/21/2022 Status post catheter ablation of atrial fibrill*02/03/2022 Encounter Status:Closed by ANDREA JENNINGS on 02/07/22 [facility] Consultation - Cardiologyon 02-07-2022 Consultation - Cardiology [facility] Medical Records Department [address] [place] [address] Consultation - Cardiology 02/07/22 0915 MR#: [id number] Acct: [id number] Name: CHRISTY MOISE Rep #: [id number] : 1950 71 From: Eva BONE PCP: Dr. 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 PAF is no unusual given her recent ablation. Feel that it is okay to continue with her Coreg and multag. Given her hx of CAD she is not a candidate for Flecainide or Tikosyn. She is anticoagulated with Eliquis. Do not need to make any adjustments. * Echo is pending, if echo is okay, okay to d/c home and follow up with our office as well as EP * Troponin have reminded in normal limits. She will continue with her ASA, Metoprolol and Lisinopril. HPI Consult Data Date of Consult: 02/07/22 HPI Narrative HPI Narrative: CHRISTY MOISE, is a 71 F who presented to [facility] emergency room yesterday for atrial fibrillation with RVR. She does have a hisory of coronary artery disease status post PCI and stent [place] RCA [place] [address] Tariq Levy, paroxysmal atrial fibrillation with cardioversion x3 in the ER June 2021, secondary pulmonary hypertension, and COPD.she was in the hospital on December 18, 2021 with atrial fibrillation for RVR. Troponin was negative. Her metoprolol was increased and she was referred to EP for further evaluation. At that time there was a question about medication compliance. She underwent an atrial fibrillation ablation at [facility] on 02/03/2022. She was given IV metoprolol in the emergency room, her rate was not controlled. She was started on an amiodarone drip along with an amiodarone bolus. This has since been discontinued. It is noted that her troponins are elevated however is felt that this is related to her recent ablation. Patient notes that she was lightheaded, had palpitations prior to her coming into the emergency room. She has not had any further chest pain or shortness of breath. She does not have any bleeding issues. She would like to go home today. 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 Atrial fibrillation with RVR Complete AV block due to AV corrina ablation COPD (chronic obstructive pulmonary disease) COPD (chronic obstructive pulmonary disease) Depression Essential hypertension GERD (gastroesophageal reflux disease) Hyperlipidemia Irritable bowel Left atrial enlargement Myoclonic disorder Paroxysmal atrial fibrillation with RVR Secondary pulmonary hypertension Sigmoid diverticulitis Thyroid nodule Tobacco abuse Home Medications tramadol 1 tab PO BID PRN 04/19/19 [History Last Taken 12/15/21] lisinopril 20 mg PO DAILY 01/08/21 [History Last Taken 12/18/21] budesonide-formoterol HFA 160 mcg-4.5 mcg/actuation aerosol inhaler 2 puff INHALATION BID 02/05/21 [History Last Taken 12/14/21] albuterol sulfate 90 mcg/actuation aerosol inhaler 2 puff INHALATION Q4H PRN PRN #8.5 g 08/06/21 [Rx Last Taken 12/16/21] dronedarone 400 mg tablet 400 mg PO BID #60 tab 08/14/21 [Rx Last Taken Unknown] clonazepam 2 mg PO BID PRN 12/18/21 [History Last Taken 12/16/21] apixaban 5 mg tablet 5 mg PO BID #180 tab 01/03/22 [Rx Last Taken Unknown] aspirin 81 mg capsule 81 mg PO DAILY #90 cap 01/03/22 [Rx Last Taken Unknown] metoprolol tartrate 100 mg tablet 100 mg PO BID 30 Days #180 tab 01/03/22 [Rx Last Taken Unknown] amoxicillin-pot clavulanate [Augmentin] 1 tab PO BID 7 Days #14 tab 02/07/22 [Rx Last Taken Unknown] hydrochlorothiazide 25 mg PO DAILY #30 tab 02/07/22 [Rx Last Taken Unknown] Allergy/AdvReac Type Severity Reaction Status Date / Time levofloxacin [From Levaquin] Allergy Rash Verified 02/06/22 17:41 phenytoin [From Dilantin] Allergy Swelling Verified 02/06/22 17:41 sertraline AdvReac Intermediate anxiety Verified 02/06/22 17:41 Family History Mother Hypertension CVA (cerebral vascular accident) CAD (coronary artery disease) Father Colon cancer Leukemia Throat cancer Surgical History History of breast lump removal History of coronary artery stent placement (05/08/18) History of left heart catheterization (05/08/15) History of lobectomy of thyroid History of thyroidectomy History of total abdominal hysterectomy Social History ... Normal [facility] Discharge Instructionon 05 Discharge Instruction [facility] Medical Records Department [address] [place] [address] Instructions for Home/Discharge Instructions 02/07/22 1041 MR#: [id number] Acct: [id number] Name: CHRISTY MOISE Rep #: [id number] : 1950 71 From: eYimi Castrejon MD PCP: Dr. Adarsh Duggan MD Status:ADM IN Discharge Instructions Diet Discharge Diet: Low fat / Low cholesterol and 2000 mg Sodium Diet Activity Discharge Activity: Return to Normal Activity Weight Bearing Status: Weight bearing as tolerated Follow Up Care Test Results: Test results from this visit will be discussed in further detail at your follow-up appointment, if applicable. Discharge Plan Admission Admit Date/Time: 02/06/22 19:44 Primary Reason for Your Visit: A fib with RVR Attending Provider: Yeimi Castrejon Primary Care Provider: Adarsh Duggan Consulting Providers: Edis Vergara ; Trev Steward Instructions Additional Instructions / Restrictions: Continue take all your medications as prescribed You are strongly encouraged to stop smoking. Discharge Orders/Prescriptions Prescriptions: New amoxicillin-pot clavulanate [Augmentin] 500-125 mg tablet 1 tab PO BID 7 Days Qty: 14 RF: 0 Continued budesonide-formoterol 160-4.5 mcg/actuation HFA aerosol inhaler 2 puff inhalation BID RF: 0 albuterol sulfate 90 mcg/actuation HFA aerosol inhaler 2 puff inhalation Q4H PRN PRN (Reason: Sob /Or Wheezing) Qty: 8.5 RF: 0 hydrochlorothiazide 25 mg tablet 25 mg PO DAILY Qty: 90 RF: 3 Eliquis 5 mg tablet 5 mg PO BID Qty: 180 RF: 3 metoprolol tartrate 100 mg tablet 100 mg PO BID 30 Days Qty: 180 RF: 3 aspirin 81 mg capsule 81 mg PO DAILY Qty: 90 RF: 1 tramadol 50 MG tablet 1 tab PO BID PRN (Reason: Pain) RF: 0 lisinopril 20 mg tablet 20 mg PO DAILY RF: 0 clonazepam 2 mg tablet 2 mg PO BID PRN (Reason: Anxiety) RF: 0 Multaq 400 mg tablet 400 mg PO BID Qty: 60 RF: 11 Referrals / Follow Up: Adarsh Duggan MD [Primary Care Provider] - In 1 Week Disposition Disposition (needs filled in before D/C Order can be placed): Home, Self Care 02/07/22 1115 Yeimi Castrejon MD CC: Dr. Adarsh Duggan MD; Dr. Trev Steward MD; Dr. Edis Vergara MD Signed Normal [facility] Echo Completeon 02-07-2022 Echo Complete [facility] Cardiovascular Services [address] [place] [address] Echo Complete 02/07/22 0858 MR#: [id number] Acct: [id number] Name: CHRISTY MOISE Rep #: [id number] : 1950 71 From: Trev Steward MD Attending Dr: Dr. Yeimi Castrejon MD Status: ADM IN Ordering Dr: Yeimi Castrejon MD Date: 02/07/22 Location: ICU Sex: F C Admitted: 02/06/22 Reason For Study: ATRIAL FIB-FLUTTER Procedure This was a 2D Doppler, Color Flow transthoracic echocardiogram. Exam performed in department. Left Ventricle Normal left ventricle. The estimated ejection fraction is 55-60 %. Right Ventricle Normal right ventricle. Normal systolic function. Atria The left atrium is moderately enlarged. Normal right atrium. Small secundum atrial septal defect vs. patent foramen ovale. Mitral Valve There is mild mitral annular calcification. Mild (1+) mitral valve insufficiency. Tricuspid Valve The tricuspid valve is not well visualized. Mild tricuspid valve insufficiency. Aortic Valve Severe focal aortic valve calcification. Pulmonic Valve The pulmonic valve is not well visualized. Great Vessels Normal aortic root. Pericardium/Pleural No pericardial effusion. MMode/2D Measurements Calculations RVDd: 3.9 cm LVOT diam: 3.5 cm LAV(MOD-bp): 98.6 ml LVOT area: 9.5 cm2 LAV(MOD-bp) Indexed: 56.5 ml/m2 LAV(MOD-sp2): 95.7 ml LAV(MOD-sp4): 86.0 ml SV(MOD-sp4): 60.1 ml LVAd ap4: 27.2 cm2 LVAd ap2: 23.5 cm2 LVLd ap4: 7.3 cm LVLd ap2: 7.4 cm EDV(MOD-sp4): 81.9 ml EDV(MOD-sp2): 64.3 ml EDV(sp4-el): 86.3 ml EDV(sp2-el): 63.2 ml LVAs ap4: 13.0 cm2 LVAs ap2: 12.7 cm2 LVLs ap4: 6.4 cm LVLs ap2: 6.5 cm ESV(MOD-sp4): 21.9 ml ESV(MOD-sp2): 21.3 ml ESV(sp4-el): 22.4 ml ESV(sp2-el): 21.3 ml EF(MOD-sp4): 73.3 % EF(MOD-sp2): 66.9 % EF(sp4-el): 74.0 % SV(MOD-sp2): 43.0 ml SV(sp4-el): 63.9 ml LA A4 area: 25.5 cm2 LA dimension(2D): 4.5 cm RA A4 area: 17.7 cm2 Doppler Measurements Calculations MV E max jesus: 119.7 cm/sec Lat Peak E' Jesus: 7.6 cm/sec Med Peak E' Jesus: 5.6 cm/sec MV A max jesus: 139.1 cm/sec E/E' lat: 15.7 E/E' med: 21.3 MV E/A: 0.86 Ao V2 max: 142.4 cm/sec LV V1 max: 120.2 cm/sec PA V2 max: 84.7 cm/sec Ao max P.1 mmHg LV V1 max P.8 mmHg DANNIE(V,D): 8.1 cm2 TR max jesus: 383.7 cm/sec TR max P.9 mmHg ECHO/Echo Complete Interpretation Summary PT REFUSED IV FOR BUBBLE. The estimated ejection fraction is 55-60 %. Normal LV systolic function _ Ordering Physician: Yeimi Castrejon Performed By: Citlaly Benitez RCS 02/07/22 1040 Date Trev Steward MD CC: Dr. Yeimi Castrejon MD; Dr. Adarsh Duggan MD Date Dictated: 02/07/22 0858 Date Transcribed: 02/07/22 104 Manager Telecom: Signed Normal [facility] L501.4020on 02-07-2022 TROPONIN-I HS 1251 pg/mL Invalid Interpretation Code 3.0-54.0 [facility] Comment on above: Order Comment: Comme nts: SPECIMEN #2 'TROP' Serial specimen #1, #2 or #3: 2 Result Comment: Crit ical Result(s) Called at: 22:58:10 02/06/2022 by: Farhat Iqbal to Cathi Flores RN ([facility]). Results read back by same. Please Note: New Test Units and Gender Specific Reference Ranges. For more information see Policy Stat Procedure [place] High Sensitivity Troponin (TNIH) and attachments. Performed By: #### L 501.4020 #### [facility] [address] [place], [address] 12 Lead EKGon 02-06-2022 12 Lead EKG [facility] Cardiovascular Services [address] [place] [address] 12 Lead EKG 02/06/22 1749 MR#: [id number] Acct: [id number] Name: CHRISTY MOISE Rep #: [id number] : 1950 71 From: Yousif Mendoza MD Attending Dr: Dr. Yeimi Castrejon MD Status: ADM IN Ordering Dr: Juan C Dailey [employer] Date: 02/06/22 Location: ICU Sex: F C Admitted: 02/06/22 Test Reason : PALPS AFIB Blood Pressure : / mmHG Vent. Rate : 151 BPM Atrial Rate : 150 BPM P-R Int : 000 ms QRS Dur : 078 ms QT Int : 324 ms P-R-T Axes : 000 038 217 degrees QTc Int : 513 ms Atrial fibrillation Low voltage QRS ST T wave abnormality, consider inferior ischemia ST T wave abnormality, consider anterior ischemia Abnormal ECG Confirmed by REJI GRIMALDO, YOUSIF ([id number]), offline editor JULIUS DE LA ROSA ([id number]) on 02/07/2022 10:24:15 AM Referred By: VARUN Confirmed By:YOUSIF MENDOZA MD 02/07/22 1024 Date Yousif Mendoza MD CC: [employer] INSPECTORGood Dailey; Dr. Yeimi Castreojn MD; Dr. Adarsh Duggan MD Signed Normal [facility] Absolute lymphocyte counton 02-06-2022 Lymphocytes Auto (Unsp spec) [#/Vol] 0.69 10*3/uL 0.83-4.51 [facility] Work Phone: Basic Metabolic Profile (BMP )on 02-06-2022 BUN/CRE 13.3 RATIO Normal 10-20 [facility] Comment on above: Order Comment: 'TROP ' Serial specimen #1, #2 or #3: 1 Performed By: #### L 100.0100, L500.2500, L501.4020 #### [facility] [address] [place], [address] CA,Total 9.0 mg/dL Normal 8.5-10.1 [facility] Comment on above: Order Comment: 'TROP ' Serial specimen #1, #2 or #3: 1 Performed By: #### L 100.0100, L500.2500, L501.4020 #### [facility] [address] [place], [address] Chloride [Moles/Vol] 105 mmol/L Normal 98-107 [facility] Comment on above: Order Comment: 'TROP ' Serial specimen #1, #2 or #3: 1 Performed By: #### L 100.0100, L500.2500, L501.4020 #### [facility] [address] [place], [address] CO2 [Moles/Vol] 25.0 mmol/L Normal 21.0-32.0 [facility] Comment on above: Order Comment: 'TROP ' Serial specimen #1, #2 or #3: 1 Performed By: #### L 100.0100, L500.2500, L501.4020 #### [facility] [address] [place], [address] Creatinine [Mass/Vol] 0.90 mg/dL Normal 0.55-1.02 [facility] Comment on above: Order Comment: 'TROP ' Serial specimen #1, #2 or #3: 1 Result Comment: The validity of the calculated GFR GFRAA in patients over 70 years has not been determined. Clinical correlation is essential. Performed By: #### L 100.0100, L500.2500, L501.4020 #### [facility] [address] [place], [address] ECRCL 48.11 ml/min Normal [facility] Comment on above: Order Comment: 'TROP ' Serial specimen #1, #2 or #3: 1 Performed By: #### L 100.0100, L500.2500, L501.4020 #### [facility] [address] [place], [address] EST GFR - AA 80 mL/min Normal >60 [facility] Comment on above: Order Comment: 'TROP ' Serial specimen #1, #2 or #3: 1 Result Comment: Afri can Norwegian GFR Calc Performed By: #### L 100.0100, L500.2500, L501.4020 #### [facility] [address] [place], [address] GAP 9 Normal 5-15 [facility] Comment on above: Order Comment: 'TROP ' Serial specimen #1, #2 or #3: 1 Performed By: #### L 100.0100, L500.2500, L501.4020 #### [facility] [address] [place], [address] GFR/1.73 sq M.predicted among non-blacks MDRD (S/P/Bld) [Vol rate/Area] 66 mL/min/{1.73_m2} Normal >60 [facility] Comment on above: Order Comment: 'TROP ' Serial specimen #1, #2 or #3: 1 Result Comment: Non- GFR Calc Performed By: #### L 100.0100, L500.2500, L501.4020 #### [facility] [address] [place], [address] Glucose [Mass/Vol] 190 mg/dL High 74-106 [facility] Comment on above: Order Comment: 'TROP ' Serial specimen #1, #2 or #3: 1 Result Comment: Fast ing Glucose result greater than or equal to 126 mg/dL suggests DIABETES MELLITUS per A.D.A. criteria. Performed By: #### L 100.0100, L500.2500, L501.4020 #### [facility] [address] [place], [address] Potassium [Moles/Vol] 3.8 mmol/L Normal 3.5-5.1 [facility] Comment on above: Order Comment: 'TROP ' Serial specimen #1, #2 or #3: 1 Performed By: #### L 100.0100, L500.2500, L501.4020 #### [facility] [address] [place], [address] Sodium [Moles/Vol] 139 mmol/L Normal 136-145 [facility] Comment on above: Order Comment: 'TROP ' Serial specimen #1, #2 or #3: 1 Performed By: #### L 100.0100, L500.2500, L501.4020 #### [facility] [address] [place], [address] Urea nitrogen [Mass/Vol] 12 mg/dL Normal 7-18 [facility] Comment on above: Order Comment: 'TROP ' Serial specimen #1, #2 or #3: 1 Performed By: #### L 100.0100, L500.2500, L501.4020 #### [facility] [address] [place], [address] Basophil percentageon 2021 Basophils/100 WBC (Bld) 0.3 % 0-1 [facility] Work Phone: Chloride [Moles/Vol] 105 mmol/L 98-107 [facility] Work Phone: Eosinophils/100 WBC (Bld) 2.3 % 0-5 [facility] Work Phone: Glucose [Mass/Vol] 190 mg/dL 74-106 [facility] Work Phone: Comment on above: Fasting Glucose resu lt greater than or equal to 126 mg/dL suggests DIABETES MELLITUS per A.D.A. criteria. Neutrophils (Bld) [#/Vol] 9.7 10*3/uL 2.0-7.7 [facility] Work Phone: Neutrophils/100 WBC (Bld) 87.2 % 47-70 [facility] Work Phone: Potassium [Moles/Vol] 3.8 mmol/L 3.5-5.1 [facility] Work Phone: Sodium [Moles/Vol] 139 mmol/L 136-145 [facility] Work Phone: WBC (Bld) [#/Vol] 11.1 10*3/uL 4.4-11.0 [facility] Work Phone: [phone] Blood erythrocytes count (nu mber/volume)on 02-06-2022 RBC (Bld) [#/Vol] 3.79 10*6/uL 4.2-5.4 [facility] Work Phone: Blood hemoglobin measurement (mass/volume)on 02-06-2022 Hemoglobin (Bld) [Mass/Vol] 12.1 g/dL 12.0-15.0 [facility] Work Phone: Blood lymphocytes/100 leukoc yteson 02-06-2022 Lymphocytes/100 WBC (Bld) 6.2 % 19-41 [facility] Work Phone: Blood monocytes/100 leukocyt eson 02-06-2022 Monocytes/100 WBC (Bld) 3.5 % 0-10 [facility] Work Phone: [phone] Blood platelet mean volumeon 02-06-2022 Platelet mean volume (Bld) [Entitic vol] 10.6 fL 6.2-12.0 [facility] Work Phone: CBC W/Diff, Automatedon - Absolute Lymph 0.69 X10 3/uL Low 0.83-4.51 [facility] Comment on above: Performed By: #### L 100.0100, L500.2500, L501.4020 #### [facility] [address] [place], [address] Absolute Neut 9.7 X10 3/uL High 2.0-7.7 [facility] Comment on above: Performed By: #### L 100.0100, L500.2500, L501.4020 #### [facility] [address] [place], [address] Basophils/100 WBC (Bld) 0.3 % Normal 0-1 [facility] Comment on above: Performed By: #### L 100.0100, L500.2500, L501.4020 #### [facility] [address] [place], [address] Eosinophils/100 WBC (Bld) 2.3 % Normal 0-5 [facility] Comment on above: Performed By: #### L 100.0100, L500.2500, L501.4020 #### [facility] [address] [place], [address] Erythrocyte distribution width (RBC) [Ratio] 13.0 % Normal 11.6-14.6 [facility] Comment on above: Performed By: #### L 100.0100, L500.2500, L501.4020 #### [facility] [address] [place], [address] Hematocrit (Bld) [Volume fraction] 36.5 % Low 37-47 [facility] Comment on above: Performed By: #### L 100.0100, L500.2500, L501.4020 #### [facility] [address] [place], [address] Hemoglobin (Bld) [Mass/Vol] 12.1 g/dL Normal 12.0-15.0 [facility] Comment on above: Performed By: #### L 100.0100, L500.2500, L501.4020 #### [facility] [address] [place], [address] IG% 0.500 Normal 0.0-0.9 [facility] Comment on above: Result Comment: IG% - Immature Granulocytes (promyelocytes, myelocytes and metamyelocytes) > 1% indicates that a LEFT SHIFT is Present. Performed By: #### L 100.0100, L500.2500, L501.4020 #### [facility] [address] [place], [address] Lymphocytes/100 WBC (Bld) 6.2 % Low 19-41 [facility] Comment on above: Performed By: #### L 100.0100, L500.2500, L501.4020 #### [facility] [address] [place], [address] MCH (RBC) [Entitic mass] 31.9 pg Normal 27.0-32.0 [facility] Comment on above: Performed By: #### L 100.0100, L500.2500, L501.4020 #### [facility] [address] [place], [address] MCHC (RBC) [Mass/Vol] 33.2 g/dL Normal 32-36 [facility] Comment on above: Performed By: #### L 100.0100, L500.2500, L501.4020 #### [facility] [address] [place], [address] MCV (RBC) [Entitic vol] 96.3 fL Normal 81-99 [facility] Comment on above: Performed By: #### L 100.0100, L500.2500, L501.4020 #### [facility] [address] [place], [address] Monocytes/100 WBC (Bld) 3.5 % Normal 0-10 [facility] Comment on above: Performed By: #### L 100.0100, L500.2500, L501.4020 #### [facility] [address] [place], [address] Neutrophils/100 WBC (Bld) 87.2 % High 47-70 [facility] Comment on above: Performed By: #### L 100.0100, L500.2500, L501.4020 #### [facility] [address] [place], [address] Nucleated RBC (Bld) [#/Vol] 0 10*3/uL Normal 0-5 [facility] Comment on above: Performed By: #### L 100.0100, L500.2500, L501.4020 #### [facility] [address] [place], [address] Platelet mean volume (Bld) [Entitic vol] 10.6 fL Normal 6.2-12.0 [facility] Comment on above: Performed By: #### L 100.0100, L500.2500, L501.4020 #### [facility] [address] [place], [address] Platelets (Bld) [#/Vol] 250 10*3/uL Normal 150-450 [facility] Comment on above: Performed By: #### L 100.0100, L500.2500, L501.4020 #### [facility] [address] [place], [address] RBC (Bld) [#/Vol] 3.79 10*6/uL Low 4.2-5.4 [facility] Comment on above: Performed By: #### L 100.0100, L500.2500, L501.4020 #### [facility] [address] [place], [address] RDW SD 46.5 fl High 35.1-43.9 [facility] Comment on above: Performed By: #### L 100.0100, L500.2500, L501.4020 #### [facility] [address] [place], [address] WBC (Bld) [#/Vol] 11.1 10*3/uL High 4.4-11.0 [facility] Comment on above: Performed By: #### L 100.0100, L500.2500, L501.4020 #### [facility] [address] [place], [address] Chest 1 View (Portable)on Chest 1 View (Portable) [facility] Imaging Services [address] [place] [address] Chest 1 View (Portable) MR#: [id number] Acct: [id number] Name: JOSE MARIACHRISTY Kristian Rep #: [id number] : 1950 F 71 From: Jose June MD PCP: Dr. Adarsh Duggan MD Status: REG ER Study: Chest 1 View (Portable) Date of Exam: 02/06/22 Exam# [id number] Ordering Dr: Juan C Dailey STUDY: X-RAY CHEST REASON FOR EXAM: Female, 71 years old. chest pain TECHNIQUE: AP portable COMPARISON: 12/18/2021 FINDINGS: Chronic interstitial changes of the right base.. Mild left lower lobe atelectasis or infiltrate. Heart is enlarged. Normal mediastinum and sheron. Normal visualized pulmonary arteries. Tortuous mildly calcified aortic arch and descending thoracic aorta. Dorsal spine demonstrates scoliosis and degenerative change.. Normal visualized ribs, clavicles, and shoulders. There is no demonstrated abnormality of the visualized soft tissue structures of the upper abdomen. RAD/Chest 1 View (Portable) IMPRESSION: ASHD. Mild left lower lobe atelectasis or infiltrate Electronically Signed: Jose June MD at 18:38 EDT Reading Location ID and State: [facility] / [place] , Service support , CC: MATT Dailey; Dr. Adarsh Duggan MD Manager Telecom: Signed Normal [facility] Determination of erythrocyte mean corpuscular volume (MCV)on 02-06-2022 MCV (RBC) [Entitic vol] 96.3 fL 81-99 [facility] Work Phone: Emergency Department Summary on 02-06-2022 Emergency Department Summary [facility] Medical Records Department [address] [place] [address] Emergency Department Summary 02/06/22 MR#: [id number] Acct: [id number] Name: JOSE MARIAHCRISTY Kristian Rep #: [id number] : 1950 71 From: Juan C GUTIERREZ PCP: Dr. Adarsh Duggan MD Status:REG ER Location: ED HPI History of Present Illness Chief Complaint: Palpitations Narrative Narrative: 71-year-old female history of COPD, atrial fibrillation on Eliquis presents to the emergency department with a feeling of dizziness, chest palpitations. Patient had ablation at [facility] 3 days ago, she states that she felt well for 2 days, today around noon, she started feeling dizzy, feeling her heart rate flutter and is here for evaluation. Patient denies any chest pain, patient denies any nausea or vomiting. states to have a cough however that has been for the last 3 weeks. Denies any fever chills PFSH 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 Atrial fibrillation with RVR Complete AV block due to AV corrina ablation COPD (chronic obstructive pulmonary disease) COPD (chronic obstructive pulmonary disease) Depression Essential hypertension GERD (gastroesophageal reflux disease) Hyperlipidemia Irritable bowel Left atrial enlargement Myoclonic disorder Paroxysmal atrial fibrillation with RVR Secondary pulmonary hypertension Sigmoid diverticulitis Thyroid nodule Tobacco abuse Home Medications tramadol 1 tab PO BID PRN 04/19/19 [History Last Taken 12/15/21] lisinopril 20 mg PO DAILY 01/08/21 [History Last Taken 12/18/21] budesonide-formoterol HFA 160 mcg-4.5 mcg/actuation aerosol inhaler 2 puff INHALATION BID 02/05/21 [History Last Taken 12/14/21] albuterol sulfate 90 mcg/actuation aerosol inhaler 2 puff INHALATION Q4H PRN PRN #8.5 g 08/06/21 [Rx Last Taken 12/16/21] hydrochlorothiazide 25 mg tablet 25 mg PO DAILY #90 tab 08/06/21 [Rx Last Taken 12/18/21] dronedarone 400 mg tablet 400 mg PO BID #60 tab 08/14/21 [Rx Last Taken Unknown] clonazepam 2 mg PO BID PRN 12/18/21 [History Last Taken 12/16/21] apixaban 5 mg tablet 5 mg PO BID #180 tab 01/03/22 [Rx Last Taken Unknown] aspirin 81 mg capsule 81 mg PO DAILY #90 cap 01/03/22 [Rx Last Taken Unknown] metoprolol tartrate 100 mg tablet 100 mg PO BID 30 Days #180 tab 01/03/22 [Rx Last Taken Unknown] Allergy/AdvReac Type Severity Reaction Status Date / Time levofloxacin [From Levaquin] Allergy Rash Verified 02/06/22 17:41 phenytoin [From Dilantin] Allergy Swelling Verified 02/06/22 17:41 sertraline AdvReac Intermediate anxiety Verified 02/06/22 17:41 Family History Mother Hypertension CVA (cerebral vascular accident) CAD (coronary artery disease) Father Colon cancer Leukemia Throat cancer Surgical History History of breast lump removal History of coronary artery stent placement (05/08/18) History of left heart catheterization (05/08/15) History of lobectomy of thyroid History of thyroidectomy History of total abdominal hysterectomy Social History housing: house number of children: 1 Smoking Status: Heavy Smoker (>10/day) Tobacco: How many years used: 50 alcohol intake: never substance use type: does not use ROS ROS ED ROS Narrative Constitutional: Negative for fever, chills, weight loss. Positive generalized weakness, dizziness Eyes: Negative for vision loss, vision change, double vision ENT: Negative for any sore throat, ear pain, congestion Cardiovascular: Negative for any chest pain, tightness., Positive for palpitation Respiratory: Negative for any sputum production, hemoptysis, dyspnea, dyspnea on exertion, orthopnea. Positive for cough Gastrointestinal: Negative for any abdominal pain, nausea, vomiting, diarrhea, constipation, blood in stool, blood in vomit : Negative for any urinary frequency, dysuria, retention, blood in urine Muscle skeletal: Negative for any muscle joint pain, stiffness, myalgias, arthralgias, neck pain, back pain Neurological: Negative for any headache, syncope, numbness or tingling .positive for dizziness Skin: Negative for any rashes, lumps, itching, abrasions, lacerations Psychiatric: Negative for any depression, anxiety, stress, suicidal ideation, homicidal ideation Hematologic: Negative for any easy bruising, excessive bruising, easy bleeding Allergies: Negative for any eczema, hives, rash EXAM Physical Exam Narrative Exam Narrative: Vital signs reviewed. Patient is in atrial fibrillation with a rate of 1 50-1 80. Patient's blood pressure is in the mid to low 90s systoli (more content not included)... Normal [facility] H AND P Exam - Hospitaliston 02-06-2022 H&P Exam - Hospitalist [facility] Medical Records Department [address] [place] [address] H P Exam - Hospitalist 02/06/221953 MR#: [id number] Acct: [id number] Name: CHRISTY MOISE Rep #: [id number] : 1950 71 From: Edis Vergara MD PCP: Dr. Adarsh Duggan MD Status:ADM IN Location: [place] [id number] [facility] General Date of Admission: 02/06/22 HPI Narrative CHRISTY MOISE, is a 71 F with a significant history of cardiac arrest status post defibrillation (12/18/2021); atrial fibrillation status post ablation at [facility] on 02/03/2022 who presents to emergency department with palpitations. Associated with her symptoms is Vertigo; fatigue; nausea and vomiting; and headache. She has a productive cough but she swallows her sputum. At the emergency department patient's blood pressures were soft in the range of 90s to 100s. Patient received metoprolol IV. Her rate was still not controlled. Cardiology was notified and recommendations were the patient be given amiodarone bolus and drip. Although patient was recently at [facility] for ablation as she does not want to go back to [facility]. Of note patient has a chronic history of myoclonic jerks. 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 Atrial fibrillation with RVR Complete AV block due to AV corrina ablation COPD (chronic obstructive pulmonary disease) COPD (chronic obstructive pulmonary disease) Depression Essential hypertension GERD (gastroesophageal reflux disease) Hyperlipidemia Irritable bowel Left atrial enlargement Myoclonic disorder Paroxysmal atrial fibrillation with RVR Secondary pulmonary hypertension Sigmoid diverticulitis Thyroid nodule Tobacco abuse Home Medications tramadol 1 tab PO BID PRN 04/19/19 [History Last Taken 12/15/21] lisinopril 20 mg PO DAILY 01/08/21 [History Last Taken 12/18/21] budesonide-formoterol HFA 160 mcg-4.5 mcg/actuation aerosol inhaler 2 puff INHALATION BID 02/05/21 [History Last Taken 12/14/21] albuterol sulfate 90 mcg/actuation aerosol inhaler 2 puff INHALATION Q4H PRN PRN #8.5 g 08/06/21 [Rx Last Taken 12/16/21] hydrochlorothiazide 25 mg tablet 25 mg PO DAILY #90 tab 08/06/21 [Rx Last Taken 12/18/21] dronedarone 400 mg tablet 400 mg PO BID #60 tab 08/14/21 [Rx Last Taken Unknown] clonazepam 2 mg PO BID PRN 12/18/21 [History Last Taken 12/16/21] apixaban 5 mg tablet 5 mg PO BID #180 tab 01/03/22 [Rx Last Taken Unknown] aspirin 81 mg capsule 81 mg PO DAILY #90 cap 01/03/22 [Rx Last Taken Unknown] metoprolol tartrate 100 mg tablet 100 mg PO BID 30 Days #180 tab 01/03/22 [Rx Last Taken Unknown] Allergy/AdvReac Type Severity Reaction Status Date / Time levofloxacin [From Levaquin] Allergy Rash Verified 02/06/22 17:41 phenytoin [From Dilantin] Allergy Swelling Verified 02/06/22 17:41 sertraline AdvReac Intermediate anxiety Verified 02/06/22 17:41 Family History Mother Hypertension CVA (cerebral vascular accident) CAD (coronary artery disease) Father Colon cancer Leukemia Throat cancer Surgical History History of breast lump removal History of coronary artery stent placement (05/08/18) History of left heart catheterization (05/08/15) History of lobectomy of thyroid History of thyroidectomy History of total abdominal hysterectomy Social History housing: house number of children: 1 Smoking Status: Heavy Smoker (>10/day) Tobacco: How many years used: 50 alcohol intake: never substance use type: does not use ROS ROS Narrative Pertinent positives and pertinent negatives as noted in HPI. All other systems were reviewed and are negative. Vital Signs Vital Signs Vital Signs: 02/06/22 17:36 02/06/22 18:04 02/06/22 18:35 Temperature 97.8 F Temperature Source Temporal Pulse Rate 118 H 150 H 130 H Respiratory Rate 17 18 16 Respiratory Pattern Normal Blood Pressure 93/63 96/71 108/60 Blood Pressure Mean 73 79 76 Pulse Ox 98 98 97 Oxygen Delivery Method Room Air 02/06/22 18:45 02/06/22 19:11 Temperature Temperature Source Pulse Rate 127 H 127 H Respiratory Rate 20 H 16 Respiratory Pattern Blood Pressure 109/68 109/74 Blood Pressure Mean 81 85 Pulse Ox 99 98 Oxygen Delivery Method Nasal Cannula Weight Weight: 61.235 kg Body Mass Index (BMI) 23.9 Physical Exam Narrative Physical exam: General: Well-nourished, well-developed. Head: Normocephalic, atraumatic, no tenderness Eyes: Vision is grossly intact. EOMI ENT, no trauma, moist muc (more content not included)... Normal [facility] Hematocrit Auto (Bld) [Volum e fraction]on 02-06-2022 Hematocrit (Bld) [Volume fraction] 36.5 % 37-47 [facility] Work Phone: [phone] 02-06-2022 TROPONIN-I HS 1619 pg/mL Invalid Interpretation Code 3.0-54.0 [facility] Comment on above: Order Comment: 'TROP ' Serial specimen #1, #2 or #3: 1 Result Comment: Crit ical Result(s) Called at: 19:22:48 02/06/2022 by: Farhat Iqbal to Damaso Alford RN (ER). Results read back by same. Please Note: New Test Units and Gender Specific Reference Ranges. For more information see Policy Stat Procedure [place] High Sensitivity Troponin (TNIH) and attachments. Performed By: #### L 100.0100, L500.2500, L501.4020 #### [facility] [address] [place], [address] Laboratory - Chemistry and C hemistry - challengeon 02-06-2022 Magnesium [Mass/Vol] 2.1 mg/dL 1.6-2.6 [facility] Work Phone: CO2 [Moles/Vol] 25.0 mmol/L 21.0-32.0 [facility] Work Phone: Urea nitrogen/Creatinine [Mass ratio] 13.3 mg/mg 10-20 [facility] Work Phone: Laboratory - Hematology and Cell countson 02-06-2022 Erythrocyte distribution width (RBC) [Entitic vol] 46.5 fL 35.1-43.9 [facility] Work Phone: Erythrocyte distribution width (RBC) [Ratio] 13.0 % 11.6-14.6 [facility] Work Phone: Immature granulocytes/100 WBC (Bld) 0.500 % 0.0-0.9 [facility] Work Phone: Comment on above: IG% - Immature Granu locytes (promyelocytes, myelocytes and metamyelocytes) > 1% indicates that a LEFT SHIFT is Present. MCH (RBC) [Entitic mass] 31.9 pg 27.0-32.0 [facility] Work Phone: Nucleated RBC/100 WBC (Bld) [Ratio] 0 % 0-5 [facility] Work Phone: MCHC Auto (RBC) [Mass/Vol]on 02-06-2022 MCHC (RBC) [Mass/Vol] 33.2 g/dL 32-36 [facility] Work Phone: Magnesiumon 02-06-2022 Magnesium [Mass/Vol] 2.1 mg/dL Normal 1.6-2.6 [facility] Comment on above: Order Comment: Comme nts: Add on lab Performed By: #### L 501.5200 #### [facility] [address] [place], [place], [id number] No Panel Informationon 02-06 Troponin I High Sensitivity 1251 pg/mL 3.0-54.0 [facility] Work Phone: Comment on above: Critical Result(s) C alled at: 22:58:10 02/06/2022 by: Farhat Iqbal to Cathi Flores RN ([facility]). Results read back by same. Please Note: New Test Units and Gender Specific Reference Ranges. For more information see Policy Stat Procedure [place] High Sensitivity Troponin (TNIH) and attachments. Estimated Creatinine Clearance Calc 48.11 ml/min [facility] Work Phone: Estimated GFR (MDRD) Amer 80 mL/min >60 [facility] Work Phone: Comment on above: GFR Calc Estimated GFR (MDRD) Non-Af Amer 66 mL/min >60 [facility] Work Phone: Comment on above: Non- GFR Calc Platelets bldon 02-06-2022 Platelets (Bld) [#/Vol] 250 10*3/uL 150-450 [facility] Work Phone: Serum or plasma calcium evelin urement (mass/volume)on 02-06-2022 Calcium [Mass/Vol] 9.0 mg/dL 8.5-10.1 [facility] Work Phone: Serum or plasma creatinine m easurement (mass/volume)on 02-06-2022 Creatinine [Mass/Vol] 0.90 mg/dL 0.55-1.02 [facility] Work Phone: Comment on above: The validity of the calculated GFR & GFRAA in patients over 70 years has not been determined. Clinical correlation is essential. Serum or plasma urea nitroge n measurement (mass/volume)on 02-06-2022 Urea nitrogen [Mass/Vol] 12 mg/dL 7-18 [facility] Work Phone: Thin prep Papanicolaou smear with manual screeningon 02-06-2022 Thin prep Papanicolaou smear with manual screening 9 5-15 [facility] Work Phone: Basic metabolic 2000 panelon 02-04-2022 Anion gap [Moles/Vol] 9 mmol/L Normal 9-18 [facility] Comment on above: Order Comment: Speci men Type: BLOOD SPECIMEN Ordering Facility: [facility] Address: [address] [address] Performed By: #### 2 4321-2 #### [facility] CLIA [id number] [address] [place] Calcium [Mass/Vol] 8.3 mg/dL Low 8.5-10.2 [facility] Comment on above: Order Comment: Speci men Type: BLOOD SPECIMEN Ordering Facility: [facility] Address: [address] [place] [address] Performed By: #### 2 4321-2 #### [facility] CLIA [id number] 1 [place] [address] [place] Chloride [Moles/Vol] 105 mmol/L Normal 97-105 [facility] Comment on above: Order Comment: Speci men Type: BLOOD SPECIMEN Ordering Facility: [facility] Address: [address] [place] [address] Performed By: #### 2 4321-2 #### [facility] CLIA [id number] 1 [place] [address] [place] CO2 [Moles/Vol] 24 mmol/L Normal 22-30 [facility] Comment on above: Order Comment: Speci men Type: BLOOD SPECIMEN Ordering Facility: [facility] Address: [address] [address] Performed By: #### 2 4321-2 #### [facility] CLIA [id number] [address] [place] Creatinine [Mass/Vol] 0.80 mg/dL Normal 0.58-0.96 [facility] Comment on above: Order Comment: Speci men Type: BLOOD SPECIMEN Ordering Facility: [facility] Address: [address] [address] Performed By: #### 2 4321-2 #### [facility] CLIA [id number] 1 [place] [address] [place] ESTIMATED GLOMERULAR FILTRATION RATE 79 mL/min/1.73m??? Normal >=60 [facility] Comment on above: Order Comment: Jayme luis Type: BLOOD SPECIMEN Ordering Facility: [facility] Address: [address] [place] [address] Result Comment: Jessica mated Glomerular Filtration Rate (eGFR) is calculated using the 2020 CKD-EPI creatinine equation. This equation utilizes serum creatinine, sex, and age as parameters. The creatinine assay has traceable calibration to isotope dilution-mass spectrometry. Refer to KDIGO guidelines for clinical interpretation. In patients with unstable renal function, e.g. those with acute kidney injury, the eGFR may not accurately reflect actual GFR. Performed By: #### 2 4321-2 #### [facility] CLIA [id number] 1 [place] [address] [place] Glucose [Mass/Vol] 116 mg/dL High 74-99 [facility] Comment on above: Order Comment: Jayme luis Type: BLOOD SPECIMEN Ordering Facility: [facility] Address: [address] [place] [address] Result Comment: The [place] Diabetes Association (ADA) provides guidance for cutoff values for fasting glucose and random glucose. The ADA defines fasting as no caloric intake for at least 8 hours. Fasting plasma glucose results between 100 to 125 mg/dL indicate increased risk for diabetes (prediabetes). Fasting plasma glucose results greater than or equal to 126 mg/dL meet the criteria for diagnosis of diabetes. In the absence of unequivocal hyperglycemia, results should be confirmed by repeat testing. In a patient with classic symptoms of hyperglycemia or hyperglycemic crisis, random plasma glucose results greater than or equal to 200 mg/dL meet the criteria for diagnosis of diabetes. Reference: Standards of Medical Care in Diabetes 2016, [place] Diabetes Association. Diabetes Care. 2016.39(Suppl 1). Performed By: #### 2 4321-2 #### [facility] CLIA [id number] 1 [place] [address] [place] Potassium [Moles/Vol] 3.9 mmol/L Normal 3.7-5.1 [facility] Comment on above: Order Comment: Speci men Type: BLOOD SPECIMEN Ordering Facility: [facility] Address: [address] [address] Performed By: #### 2 4321-2 #### [facility] CLIA [id number] [address] Sodium [Moles/Vol] 138 mmol/L Normal 136-144 [facility] Comment on above: Order Comment: Speci men Type: BLOOD SPECIMEN Ordering Facility: [facility] Address: [address] [place] [address] Performed By: #### 2 4321-2 #### [facility] CLIA [id number] [address] Urea nitrogen [Mass/Vol] 11 mg/dL Normal 7-21 [facility] Comment on above: Order Comment: Speci men Type: BLOOD SPECIMEN Ordering Facility: [facility] Address: [address] [place] [address] Performed By: #### 2 4321-2 #### [facility] CLIA [id number] [address] CBC panel Auto (Bld)on 02-04 Erythrocyte distribution width (RBC) [Ratio] 13.2 % Normal 11.5-15.0 [facility] Comment on above: Order Comment: Speci men Type: BLOOD SPECIMEN Ordering Facility: [facility] Address: [address] [place] [address] Performed By: #### 5 8410-2 #### [facility] CLIA [id number] [address] Hematocrit (Bld) [Volume fraction] 34.5 % Low 36.0-46.0 [facility] Comment on above: Order Comment: Speci men Type: BLOOD SPECIMEN Ordering Facility: [facility] Address: [address] [place] [address] Performed By: #### 5 8410-2 #### [facility] CLIA [id number] [address] [place] [address] [place] Hemoglobin (Bld) [Mass/Vol] 11.2 g/dL Low 11.5-15.5 [facility] Comment on above: Order Comment: Speci men Type: BLOOD SPECIMEN Ordering Facility: [facility] Address: [address] [place] [address] Performed By: #### 5 8410-2 #### [facility] CLIA [id number] [address] MCH (RBC) [Entitic mass] 31.5 pg Normal 26.0-34.0 [facility] Comment on above: Order Comment: Speci men Type: BLOOD SPECIMEN Ordering Facility: [facility] Address: [address] [place] [address] Performed By: #### 5 8410-2 #### [facility] CLIA [id number] [address] MCHC (RBC) [Mass/Vol] 32.5 g/dL Normal 30.5-36.0 [facility] Comment on above: Order Comment: Speci men Type: BLOOD SPECIMEN Ordering Facility: [facility] Address: [address] [place] [address] Performed By: #### 5 8410-2 #### [facility] CLIA [id number] [address] MCV (RBC) [Entitic vol] 97.2 fL Normal 80.0-100.0 [facility] Comment on above: Order Comment: Speci men Type: BLOOD SPECIMEN Ordering Facility: [facility] Address: [address] [place] [address] Performed By: #### 5 8410-2 #### [facility] CLIA [id number] [address] Nucleated RBC (Bld) [#/Vol] 10*3/uL Normal <0.01 [facility] Comment on above: Order Comment: Speci men Type: BLOOD SPECIMEN Ordering Facility: [facility] Address: [address] [place] [address] Performed By: #### 5 8410-2 #### [facility] CLIA [id number] [address] Platelet mean volume (Bld) [Entitic vol] 10.3 fL Normal 9.0-12.7 [facility] Comment on above: Order Comment: Speci men Type: BLOOD SPECIMEN Ordering Facility: [facility] Address: [address] [place] [address] Performed By: #### 5 8410-2 #### [facility] CLIA [id number] [address] [place] Platelets (Bld) [#/Vol] 207 10*3/uL Normal 150-400 [facility] Comment on above: Order Comment: Speci men Type: BLOOD SPECIMEN Ordering Facility: [facility] Address: [address] [place] [address] Performed By: #### 5 8410-2 #### [facility] CLIA [id number] [address] RBC (Bld) [#/Vol] 3.55 10*6/uL Low 3.90-5.20 [facility] Comment on above: Order Comment: Speci men Type: BLOOD SPECIMEN Ordering Facility: [facility] Address: [address] [place] [address] Performed By: #### 5 8410-2 #### [facility] CLIA [id number] [address] [place] WBC (Bld) [#/Vol] 8.88 10*3/uL Normal 3.70-11.00 [facility] Comment on above: Order Comment: Speci men Type: BLOOD SPECIMEN Ordering Facility: [facility] Address: [address] [place] [address] Performed By: #### 5 8410-2 #### [facility] CLIA [id number] [address] CNDSon 02-04-2022 CNDS HNO ID: [id number] Author: Andrea Jennings APRN.[employer] Service: Electrophysiology Author Type: Nurse Practitioner Type: Discharge Summary Filed: 02/04/2022 10:42 AM Note Text: Attestation signed by Caryn Wood MD at 02/04/2022 11:35 AM [facility] Electrophysiology (EP) EP Attending Reviewed case. Agree with evaluation and plan of care as outlined by the MANAGEMENT CONSULTANT, as we discussed. Caryn Wood MD February 04, 2022 11:35 AM DISCHARGE SUMMARY PATIENT NAME: Christy Moise Code Status: Not on file Highest Readmission Risk Score: 14 The 30 day readmissions risk score is derived from an internally validated risk model which evaluates patient level characteristics, utilization history, medication orders and lab results up until the day of discharge. Patients with a score of 40 or above are considered highest risk for readmission. Specific patient level drivers will be listed at the bottom of the summary. Admission Information Admission Information ADMIT DATE: 02/03/2022 DISCHARGE DATE: 02/04/2022 MY DOCTORS AND MEDICAL TEAM: [facility] Doctor: Caryn Wood MD Primary Care Provider: Adarsh Duggan MD My Medical Team Members: Treatment Team: Attending Provider: Caryn Wood MD MY CONDITION AT DISCHARGE: Good REASON I WAS IN THE HOSPITAL: Patient underwent PVI with cryo on 02/03/2022 for history of paroxysmal atrial fibrillation under the direction of Dr. Wood at [facility]. SUMMARY OF WHAT HAPPENED WHILE I WAS IN THE HOSPITAL: Patient had a cryo PVI with Dr. Wood on 02/03/2022 for history of paroxysmal atrial fibrillation. OTHER PROBLEMS/DIAGNOSIS: Principal Problem: Status post catheter ablation of atrial fibrillation Active Problems: Paroxysmal atrial fibrillation (HCC) half-way current use of antiarrhythmic drug At risk for stroke Anticoagulant long-term use OPERATIONS PERFORMED WHILE IN THE HOSPITAL: Patient had a cryo PVI with Dr. Wood on 02/03/2022 for history of paroxysmal atrial fibrillation. IMPORTANT TEST/PROCEDURES: Patient had a cryo PVI with Dr. Wood on 02/03/2022 for history of paroxysmal atrial fibrillation. TEST RESULTS NOT AVAILABLE AT THIS TIME: No pending results Discharge Disposition Discharge Disposition: Home With Self Care Activity When You Leave the Hospital Do not sit for long periods of time with your arms or legs bent May drive No lifting greater than 5-10 pounds for 5-7 days No strenuous activity, exercise, or sports for 5-7 days, casual walking is fine No walking restrictions Take showers, not baths, until your wound is completely healed Diet Instructions Resume your pre-hospital diet For Pain When You Leave the Hospital Use acetaminophen (Tylenol) as recommended on the bottle Wound/Surgical Site Care Any bruising and bumps should disappear within 3-4 days Avoid lotions or powders Check your wound every day If the bruising expands or the bump enlarges please call your doctor Some bruising, soreness or a small bump under the skin at the inserion site is normal Wash your wound area with mild soap and water daily and gently pat dry with a towel Follow Up Appointments Follow-Up Appointment Dr. Wood's office will call to schedule the appointment. When: In: Comment - three months Patient/Parents to call for appointment?: No Caryn Wood MD [phone] [id number] PCP Requested Referral Additional Provider to Provider Information: Principal Problem: Status post catheter ablation of atrial fibrillation POA: Yes Assessment AND Plan: Patient underwent PVI with cryo with Dr. Wood on 02/03/2022 secondary to history of paroxysmal atrial fibrillation. There were no intraoperative or postprocedural complications. Discharge instructions covered at length with patient regarding medications, activity restrictions, lifting restrictions, wound care, and 3-month follow-up appointment. Patient verbalized understanding and was provided a catheter ablation discharge instructions handout. Patient verbalized she works at a [employer]. In light of the lifting striction for 1 week of 5 to 10 pounds I have given the patient a work excuse to return to work on February 11. Alarms reviewed overnight. Patient maintained normal sinus rhythm with no acute concerning alarms. Patient was found to be in normal sinus rhythm with a ventricular rate of 72 and appropriate intervals. Bilateral groin dressings removed. Sites clean, dry, and intact without signs of bleeding or infection. Soft and nontender to palpation. Patient agreeable to follow-up plan and has no further questions at this time. Active Probl (more content not included)... Normal [facility] ANES POSTPROC EVALon 022 ANES POSTPROC EVAL HNO ID: [id number] Author: Talon Villegas DO Service: Anesthesiology Author Type: Physician Type: Anesthesia Postprocedure Evaluation Filed: 02/03/2022 4:22 PM Note Text: POST ANESTHESIA EVALUATION NOTE : 1950 Procedure Summary Date: 02/03/22 Room / Location: [facility] 02 / [place] [facility] Anesthesia Start: 932 Anesthesia Stop: 1435 Procedure: COMPLETE EPS W/PVI ABL W/WO 3D MAP ICE (N/A Cardiac) Diagnosis: Paroxysmal atrial fibrillation (HCC) Coronary artery disease involving navajo coronary artery of navajo heart without angina pectoris 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 Post Anesthesia Patient Status Anticipated Disposition: inpatient floor planned admission. Neurological Status: aware and responsive. Pulmonary Status: breathing comfortably on room air Airway Control: returned to baseline unsupported. Cardiovascular Status: stable. Pain Management: clinically adequate - multimodal analgesia pain management approach Postoperative Hydration: acceptable. Intraoperative Events: no significant anesthesia events Post Operative Nausea/Vomiting Status: no significant post operative nausea or vomiting Anesthetic Observations: Recommendation: further care per PACU/ICU/floor team. Anesthesia Observations No Documentation SIGNATURE: Talon Villegas DO PATIENT NAME: Christy Moise DATE: February 03, 2022 TIME: 4:22 PM CSN: [id number] Normal [facility] ANES PRE-OPon 02-03-2022 ANES PRE-OP HNO ID: [id number] Author: Talon Villegas DO Service: Anesthesiology Author Type: Physician Type: Anesthesia Preprocedure Evaluation Filed: 02/03/2022 9:22 AM Note Text: ANESTHESIOLOGY DAY OF SURGERY NOTE : 1950 Procedure Information Date/Time: 02/03/22 0900 Procedure: COMPLETE EPS W/PVI ABL W/WO 3D MAP ICE (N/A Cardiac) - cryoablation discontinue Multaq 1 week prior Eliquis HANDP on 01/21 by DEBRA LEWIS PENDING 02/01 PACU/ROU Location: [place] [facility] [place] [facility] Surgeons: Caryn Wood MD Estimated body mass index is 22.71 kg/m? as calculated from the following: Height as of 01/21/22: 170.2 cm (5' 7"). Weight as of 01/21/22: 65.8 kg (145 lb). Most recent hematocrit and potassium results: Hematocrit 42.9 02/03/2022 Potassium 4.4 02/03/2022 Relevant Problems CARDIO (+) Coronary artery disease involving navajo coronary artery of navajo heart without angina pectoris (+) Essential hypertension (+) Nonrheumatic mitral (valve) insufficiency (+) Paroxysmal atrial fibrillation (HCC) (+) ST-segment elevation myocardial infarction (STEMI) of inferior wall (HCC) (+) Secondary pulmonary hypertension GI (+) Hiatal hernia NEURO-PSYCH (+) History of ST elevation myocardial infarction (STEMI) PULMONARY (+) Chronic obstructive pulmonary disease (HCC) Other (+) Anticoagulant long-term use (+) 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 Tracheostomy tube not present Mallampati: II. TM distance: >3 FB. Neck ROM: full ROM without neurological symptoms. Mouth opening: adequate. Short neck: no. Thick neck: no DENTAL Dental findings: poor dentition. Dentures, upper: complete. Additional exam findings: yes. CARDIOVASCULAR Normal cardiovascular observations. PULMONARY Normal pulmonary observations. II - ANESTHESIA PLAN ASA Score: 3 Anesthetic Plan: general Airway type: ETT The patient is a current smoker. NPO Status: adequate Monitoring plan: standard ASA. Postoperative analgesic plan: parenteral or oral opioids and multimodal analgesia. Informed Consent Anesthetic risks, benefits, alternatives, personnel and consent discussed: yes. Patient / Responsible Libertarian agrees to proceed: yes Patient / Surrogate agrees to blood products: blood products not planned Significant changes in the patient condition since the History and Physical, not otherwise documented in primary service progress note: no. Vitals Value Taken Time BP 153/80 02/03/22 0756 Pulse 55 02/03/22 0756 Resp Temp 36.6 ?C (97.9 ?F) 02/03/22 0756 SpO2 99 % 02/03/22 0756 Facility-Administered Medications as of 02/03/2022 Medication Dose Route Frequency - sodium chloride 0.9 % (flush) 2-10 mL (BD POSIFLUSH) 2-10 mL INTRAVENOUS q 12 H - [START ON 02/04/2022] heparin 1,000 Units in NaCl 0.9% 1,000 mL 1,000 Units INTRAVENOUS Ux Developer Designer to OR - [START ON 02/04/2022] heparin 3,000 Units in NaCl 0.9% 500 mL irrigation 3,000 Units IRRIGATION Ux Developer Designer to OR - [START ON 02/04/2022] heparin (porcine) in 0.9% NaCl 1,000 unit/500 mL 1,000 Units 1,000 Units INTRAVENOUS Ux Developer Designer to OR Outpatient Medications as of 02/03/2022 Medication Sig - ELIQUIS 5 mg tab(s) Take 5 mg by mouth twice daily. - traMADol (ULTRAM) 50 mg tablet Take 50 mg by mouth twice daily. - metoprolol tartrate, short acting, (LOPRESSOR) 100 mg tablet Take 100 mg by mouth twice daily. - lisinopril (ZESTRIL, PRINIVIL) 20 mg tablet Take 1 tablet by mouth once daily. - dronedarone (MULTAQ) 400 mg tab Take 1 tablet by mouth twice daily with meals. - clonazePAM (KLONOPIN) 2 mg tablet Take 2 mg by mouth twice daily as needed for anxiety. - aspirin, enteric coated (ASPIRIN, ENTERIC COATED) 81 mg EC tablet Take 81 mg by mouth. - albuterol HFA (VENTOLIN HFA) 90 mcg/actuation inhaler Inhale 2 puffs into the lungs every 6 hours as needed for Wheezing - hydroCHLOROthiazide (HYDRODIURIL, ESIDRIX) 25 mg tablet Take 25 mg by mouth once daily. I have interviewed and examined the patient. I have reviewed the medical record and/or the pre-anesthesia evaluation, pertinent labs, and test results. This contains updated information obtained within 48 hours of Surgery/Procedure. SIGNATURE: Talon Villegas DO PATIENT NAME: Christy Moise DATE: February 03, 2022 TIME: 9:21 AM CSN: [id number] Normal [facility] Basic metabolic 2000 panelon 02-03-2022 Anion gap [Moles/Vol] 11 mmol/L Normal 9-18 [facility] Comment on above: Order Comment: Speci men Type: BLOOD SPECIMEN Ordering Facility: [facility] Address: [address] [address] Performed By: #### 2 4321-2 #### [facility] CLIA [id number] 1 [place] [address] [place] Calcium [Mass/Vol] 9.5 mg/dL Normal 8.5-10.2 [facility] Comment on above: Order Comment: Speci men Type: BLOOD SPECIMEN Ordering Facility: [facility] Address: [address] [address] Performed By: #### 2 4321-2 #### [facility] CLIA [id number] 1 [place] [address] [place] Chloride [Moles/Vol] 106 mmol/L High 97-105 [facility] Comment on above: Order Comment: Speci men Type: BLOOD SPECIMEN Ordering Facility: [facility] Address: [address] [address] Performed By: #### 2 4321-2 #### [facility] CLIA [id number] [address] [place] CO2 [Moles/Vol] 24 mmol/L Normal 22-30 [facility] Comment on above: Order Comment: Speci men Type: BLOOD SPECIMEN Ordering Facility: [facility] Address: [address] [place] [address] Performed By: #### 2 4321-2 #### [facility] CLIA [id number] [address] OF [facility] Creatinine [Mass/Vol] 0.74 mg/dL Normal 0.58-0.96 [facility] Comment on above: Order Comment: Speci men Type: BLOOD SPECIMEN Ordering Facility: [facility] Address: [address] [place] [address] Performed By: #### 2 4321-2 #### [facility] CLIA [id number] [address] ESTIMATED GLOMERULAR FILTRATION RATE 87 mL/min/1.73m??? Normal >=60 [facility] Comment on above: Order Comment: Speci men Type: BLOOD SPECIMEN Ordering Facility: [facility] Address: [address] [place] [address] Result Comment: Jessica mated Glomerular Filtration Rate (eGFR) is calculated using the 2020 CKD-EPI creatinine equation. This equation utilizes serum creatinine, sex, and age as parameters. The creatinine assay has traceable calibration to isotope dilution-mass spectrometry. Refer to KDIGO guidelines for clinical interpretation. In patients with unstable renal function, e.g. those with acute kidney injury, the eGFR may not accurately reflect actual GFR. Performed By: #### 2 4321-2 #### [facility] CLIA [id number] [address] [place] Glucose [Mass/Vol] 93 mg/dL Normal 74-99 [facility] Comment on above: Order Comment: Speci men Type: BLOOD SPECIMEN Ordering Facility: [facility] Address: [address] [place] [address] Result Comment: The [place] Diabetes Association (ADA) provides guidance for cutoff values for fasting glucose and random glucose. The ADA defines fasting as no caloric intake for at least 8 hours. Fasting plasma glucose results between 100 to 125 mg/dL indicate increased risk for diabetes (prediabetes). Fasting plasma glucose results greater than or equal to 126 mg/dL meet the criteria for diagnosis of diabetes. In the absence of unequivocal hyperglycemia, results should be confirmed by repeat testing. In a patient with classic symptoms of hyperglycemia or hyperglycemic crisis, random plasma glucose results greater than or equal to 200 mg/dL meet the criteria for diagnosis of diabetes. Reference: Standards of Medical Care in Diabetes 2016, [place] [employer] Association. Diabetes Care. 2016.39(Suppl 1). Performed By: #### 2 4321-2 #### [facility] CLIA [id number] [address] Potassium [Moles/Vol] 4.4 mmol/L Normal 3.7-5.1 [facility] Comment on above: Order Comment: Jayme luis Type: BLOOD SPECIMEN Ordering Facility: [facility] Address: [address] [place] [address] Performed By: #### 2 4321-2 #### [facility] CLIA [id number] [address] Sodium [Moles/Vol] 141 mmol/L Normal 136-144 [facility] Comment on above: Order Comment: Jayme luis Type: BLOOD SPECIMEN Ordering Facility: [facility] Address: [address] [place] [address] Performed By: #### 2 4321-2 #### [facility] CLIA [id number] [address] [place] [facility] Urea nitrogen [Mass/Vol] 9 mg/dL Normal 7-21 [facility] Comment on above: Order Comment: Jayme luis Type: BLOOD SPECIMEN Ordering Facility: [facility] Address: [address] [address] Performed By: #### 2 4321-2 #### [facility] CLIA [id number] [address] CBC panel Auto (Bld)on 02-03 Erythrocyte distribution width (RBC) [Ratio] 13.2 % Normal 11.5-15.0 [facility] Comment on above: Order Comment: Speci men Type: BLOOD SPECIMEN Ordering Facility: [facility] Address: [address] [place] [address] Performed By: #### 5 8410-2 #### [facility] CLIA [id number] [address] Hematocrit (Bld) [Volume fraction] 42.9 % Normal 36.0-46.0 [facility] Comment on above: Order Comment: Speci men Type: BLOOD SPECIMEN Ordering Facility: [facility] Address: [address] [place] [address] Performed By: #### 5 8410-2 #### [facility] CLIA [id number] [address] Hemoglobin (Bld) [Mass/Vol] 13.4 g/dL Normal 11.5-15.5 [facility] Comment on above: Order Comment: Speci men Type: BLOOD SPECIMEN Ordering Facility: [facility] Address: [address] [place] [address] Performed By: #### 5 8410-2 #### [facility] CLIA [id number] [address] MCH (RBC) [Entitic mass] 31.2 pg Normal 26.0-34.0 [facility] Comment on above: Order Comment: Speci men Type: BLOOD SPECIMEN Ordering Facility: [facility] Address: [address] [place] [address] Performed By: #### 5 8410-2 #### [facility] CLIA [id number] [address] MCHC (RBC) [Mass/Vol] 31.2 g/dL Normal 30.5-36.0 [facility] Comment on above: Order Comment: Speci men Type: BLOOD SPECIMEN Ordering Facility: [facility] Address: [address] [place], [place] [address] Performed By: #### 5 8410-2 #### [facility] CLIA [id number] [address] MCV (RBC) [Entitic vol] 99.8 fL Normal 80.0-100.0 [facility] Comment on above: Order Comment: Speci men Type: BLOOD SPECIMEN Ordering Facility: [facility] Address: [address] [address] Performed By: #### 5 8410-2 #### [facility] CLIA [id number] [address] Nucleated RBC (Bld) [#/Vol] 10*3/uL Normal <0.01 [facility] Comment on above: Order Comment: Speci men Type: BLOOD SPECIMEN Ordering Facility: [facility] Address: [address] [place] [address] Performed By: #### 5 8410-2 #### [facility] CLIA [id number] [address] Platelet mean volume (Bld) [Entitic vol] 10.4 fL Normal 9.0-12.7 [facility] Comment on above: Order Comment: Speci men Type: BLOOD SPECIMEN Ordering Facility: [facility] Address: [address] [place] [address] Performed By: #### 5 8410-2 #### [facility] CLIA [id number] [address] Platelets (Bld) [#/Vol] 285 10*3/uL Normal 150-400 [facility] Comment on above: Order Comment: Speci men Type: BLOOD SPECIMEN Ordering Facility: [facility] Address: [facility] [address] Performed By: #### 5 8410-2 #### [facility] CLIA [id number] [address] RBC (Bld) [#/Vol] 4.30 10*6/uL Normal 3.90-5.20 [facility] Comment on above: Order Comment: Speci men Type: BLOOD SPECIMEN Ordering Facility: [facility] Address: [address] [place] [address] Performed By: #### 5 8410-2 #### [facility] CLIA [id number] [address] WBC (Bld) [#/Vol] 7.80 10*3/uL Normal 3.70-11.00 [facility] Comment on above: Order Comment: Speci men Type: BLOOD SPECIMEN Ordering Facility: [facility] Address: [address] [place] [address] Performed By: #### 5 8410-2 #### [facility] CLIA [id number] [address] CONFIRM BLOOD TYPEon 022 ABO A Normal [facility] Comment on above: Order Comment: Speci men Type: BLOOD SPECIMENOrdering Facility: [facility] Address: [address] [place] [address] Performed By: #### C ONABO ####[facility] [id number] [address] Rh Nom (Bld) Positive Normal [facility] Comment on above: Order Comment: Speci men Type: BLOOD SPECIMENOrdering Facility: [facility] Address: [address] [place] [address] Performed By: #### C ONABO ####[facility] [id number] [address] HISTORY PHYSICALon HISTORY PHYSICAL HNO ID: [id number] Author: Caryn Wood MD Service: Electrophysiology Author Type: Physician Type: HANDP Filed: 02/03/2022 9:29 AM Note Text: [facility] Electrophysiology (EP) EP Attending Ms. Moise presents for scheduled catheter ablation procedure. HANDP reviewed, patient seen and examined pre-procedure. No substantial changes unless otherwise indicated. She reports no substantial changes since last evaluation. She wishes to proceed, all questions answered. Huddle completed with patient and caregiver teams. The HANDP is located in Epic encounter dated 01/21/2022 Dr. Wood's office. Caryn Wood MD February 03, 2022 9:28 AM [facility] TYPE AND SCREENon 02-03-2022 ABO A Normal [facility] Comment on above: Order Comment: Speci men Type: BLOOD SPECIMENOrdering Facility: [facility] Address: [address] [place] [address] Performed By: #### T SCR ####[facility] [id number] [address] HISTORICAL AB SCR STATUS Negative [facility] Comment on above: Order Comment: Speci men Type: BLOOD SPECIMENOrdering Facility: [facility] Address: [address] [place] [address] Performed By: #### T SCR ####[facility] [id number] [address] Rh Nom (Bld) Positive [facility] Comment on above: Order Comment: Speci men Type: BLOOD SPECIMENOrdering Facility: [facility] Address: [address] [place] [address] Performed By: #### T SCR ####[facility] [id number] [address] TYPE AND SCREEN EXPIRATION 02/06/2022 23:59 [facility] Comment on above: Order Comment: Speci men Type: BLOOD SPECIMENOrdering Facility: [facility] Address: [address] [place] [address] Performed By: #### T SCR ####[facility] [id number] [address] CNPNon 01-27-2022 CNPN Telephone (AGCARDPOB ) CHRISTY MOISE ([id number]) 1950 F Date Time Provider Department 01/27/22 CARYN WOOD During your visit today, we recorded the following information about you: Driss Joya 01/27/2022 1:34 PM Signed Pre procedure covid test ordered Driss Valdezvega 01/27/2022 1:34 PM Signed Patient is scheduled for a PVAI Ablation on 02/03/[address] Wood. The hospital will call the day before between 2-5pm with your arrival time. Patient should not eat or drink after midnight the day before the procedure. 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 You will stay overnight for observation. Patient should continue to take medications as prescribed the morning of the procedure with just a sip of water but discontinue Multaq 1 week prior to the procedure Covid test on 02/01/22 at 11am at the [address] [address] Unable to leave message on daughters phone and other numbers listed are disconnected Driss ElamVANESSA 01/27/2022 2:00 PM Signed Patient's daughter called back and confirmed, she voiced understanding to all instructions. Maricruz Elam January 27, 2022 1:59 PM Lana Escalante RN 01/27/2022 2:27 PM Signed Pt's name has been added to loza procedure board. Lana Escalante RN Allergies As of Date: 01/27/2022 Noted Allergy Reaction SERTRALINE 01/28/2017 14 - Other: See Comments LEVOFLOXACIN 10/02/2014 2 - Rash Comments: Other reaction(s): Rash PHENYTOIN 10/08/2017 7 - Swelling Date Reviewed: 01/21/2022 Reviewed by: Caryn Wood MD - Fully Assessed Reason for Visit: Orders [681] Preparations For Procedures [899] Cmt: PVAI Ablation Primary Visit Diagnosis:Pre-procedure lab exam [Z01.812] Order(s):PRE-PROCEDURE AND PRE-OPERATIVE COVID [SQPOCOVD] Order #: [id number] FUTURE Prescriptions as of 01/27/2022 - ELIQUIS 5 mg tab(s) Take 5 mg by mouth twice daily. - traMADol (ULTRAM) 50 mg tablet Take 50 mg by mouth twice daily. - metoprolol tartrate, short acting, (LOPRESSOR) 100 mg tablet Take 100 mg by mouth twice daily. - lisinopril (ZESTRIL, PRINIVIL) 20 mg tablet Take 1 tablet by mouth once daily. - dronedarone (MULTAQ) 400 mg tab Take 1 tablet by mouth twice daily with meals. - clonazePAM (KLONOPIN) 2 mg tablet Take 2 mg by mouth twice daily as needed for anxiety. - aspirin, enteric coated (ASPIRIN, ENTERIC COATED) 81 mg EC tablet Take 81 mg by mouth. - albuterol HFA (VENTOLIN HFA) 90 mcg/actuation inhaler Inhale 2 puffs into the lungs every 6 hours as needed for Wheezing - hydroCHLOROthiazide (HYDRODIURIL, ESIDRIX) 25 mg tablet Take 25 mg by mouth once daily. 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 [Z*08/28/2021 At risk for stroke [Z91.89] 08/28/2021 Anticoagulant long-term use [Z79.01] 08/28/2021 Coronary artery disease involving navajo spencer*08/28/2021 History of coronary artery stent placement [Z95*08/28/2021 Anxiety [F41.9] 01/28/2017 Claudication (HCC) [I73.9] 08/24/2019 Essential hypertension [I10] 01/07/2016 Hiatal hernia [K44.9] 09/04/2017 Irritable bowel syndrome [K58.9] 08/28/2021 Myoclonic disorder [G25.3] 08/28/2021 Neuropathy [G62.9] 08/28/2021 S/P angioplasty with stent [Z95.820] 04/04/2019 Secondary pulmonary hypertension [IJR1023] 08/28/2021 Tobacco abuse [Z72.0] 08/28/2021 Chronic obstructive pulmonary disease (HCC) [J4*01/08/2016 Depressive disorder [F32.A] 01/06/2017 Palpitations [R00.2] Fibromyalgia [M79.7] 09/18/2021 Nonrheumatic mitral (valve) insufficiency [I34.*09/18/2021 Nonrheumatic tricuspid (valve) insufficiency [I*09/18/2021 ST-segment elevation myocardial infarction ([place]ISON*04/[address] elevation myocardial infarction (*01/21/2022 Encounter Status:Closed by DRISS JOYA [facility] 01/27/22 [facility] (AGCARDPOB) CHRISTY MOISE ([id number]) 1950 F Date Time Provider Department 01/21/22 10:20 AM CARYN WOOD During your visit today, we recorded the following information about you: Pulse Respiration Blood pressure Weight 52/minute 18/minute 142/72 65.8 kg Height 1.702 m Caryn Wood MD 01/21/2022 6:30 PM Signed PRIMARY CARE PHYSICIAN: Renee Espinal[address] [address] REFERRING PHYSICIAN: Juan C Gaytan MD ([facility]) [address] [place], [place] [address] [address] [address] Patient Care Team: Adarsh Duggan as PCP - General (Family Practice) Jose Dave as Nurse Practitioner (Cardiology) Juan C Gaytan as Specialty Underground Mine Superintendent (Cardiology) CHIEF COMPLAINT: Evaluation of arrhythmia, atrial fibrillation HISTORY OF PRESENT ILLNESS: Ms. Moise is a 71 year old female who presents today with her daughter/family for evaluation of symptomatic paroxysmal atrial fibrillation. She has a history of coronary artery disease, had inferior STEMI in April 2018. She underwent emergent cardiac catheterization at [facility], had PCI/stent to the proximal RCA. In about August 2018 she was diagnosed with paroxysmal atrial fibrillation, associated with symptoms. She was treated with rate controlling medication, ultimately was also treated with oral anticoagulation therapy for stroke prevention. She experienced recurrent episodes, there was some mention in the available medical records of problems with compliance with the medications but nevertheless was experiencing excessively bothersome symptoms from the recurrent episodes. In June 2020 she was treated with antiarrhythmic drug therapy, with dronedarone (Multaq). She has continued to experience recurrences of the atrial fibrillation, associated with bothersome symptoms. There was mention of previous cardioversion, it appears from my review of the records that she underwent attempts at electrical cardioversion in [facility] ER in about 06/2021, which were described as unsuccessful --- she was then admitted to the hospital and spontaneously converted back to sinus rhythm. I do not find any other records of electrical cardioversion, either electively or emergently including fairly extensive review of [facility] records here in the [facility] EMR. So I think primarily she has paroxysmal form of atrial fibrillation. She presents today to discuss treatment options for the atrial fibrillation, given the failure of the medical therapy. She particularly wants to discuss the option of catheter ablation. I have confirmed and edited as necessary, the PFSH and ROS obtained by others. PAST MEDICAL HISTORY Diagnosis Date - Anemia - Anticoagulant long-term use indication: stroke prevention atrial fibrillation ([id number] = 4) - At risk for stroke [id number] = 4 (HTN, age, CAD, female gender) - Atherosclerotic heart disease - COPD (chronic obstructive pulmonary disease) (HCC) - Coronary artery disease involving navajo coronary artery of navajo heart without angina pectoris s/p inferior STEMI 04/2018, s/p PCI/stent to RCA - Dizziness - History of coronary artery stent placement - History of ST elevation myocardial infarction (STEMI) - HLD (hyperlipidemia) - Hypertension - Irritable bowel syndrome - Left atrial enlargement - Lightheadedness - 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 Levy at [facility] - Thyroid nodule - Tobacco abuse PAST SURGICAL HISTORY Procedure Laterality Date - BREAST SURGERY HX Left breast - cyst removal - CHEST X-RAY 12/18/2021 [facility] - ECHO 01/08/2021 [facility] - EVENT MONITOR 03/30/2019 [facility] - HEMORRHOIDECTOMY - HYSTERECTOMY HX - INSERT INTRACORONARY STENT 2017 PCI/stent to RCA; Dr. Levy, [facility] - LEFT HEART CATH,PERCUTANEOUS 05/09/2018 ST Elevation @ [facility] - THYROIDECTOMY TOTAL/COMPLETE SOCIAL HISTORY Social History Tobacco Use - Smoking status: Current Every Day Smoker Packs/day: 1.00 Types: Cigarettes Start date: 1963 - Smokeless tobacco: Never Used Substance Use Topics - Alcohol use: No - Drug use: No FAMILY HISTORY Problem Relation Age of Onset - Stroke Mother - Hypertension Mother - Coronary Artery Disease Mo (more content not included)... Normal [facility] Cardiology Visit Reporton Cardiology Visit Report [facility] [address] [place] [address] OFFICE VISIT Date of Service: 01/03/22 MR#: [id number] Acct: [id number] Name: CHRISTY MOISE Kristian Rep #: [id number] : 1950 Provider: MATT sun Age/Sex: 71/F Location: [facility] [place] Status: Signed [facility] History of Present Illness Details: This is a 71-year-old female who presents the office today for a cardiovascular outpatient follow-up. She has a history of coronary artery disease status post PCI and stent to RCA [place] [address] Tariq Levy, paroxysmal atrial fibrillation with cardioversion x3 in the ER June 2021, secondary pulmonary hypertension, and COPD. She was first seen at [facility] in June 2021 with atrial fibrillation with RVR. Cardioversion was attempted in the emergency department but was unsuccessful. She was admitted for further evaluation. During such hospitalization she converted to normal sinus rhythm. Her metoprolol was increased to 50 mg p.o. twice daily. She did presented [facility] emergency department 2 days prior to such hospitalization for atrial fibrillation. Her high sensitive troponin was negative x3. Patient did not wish for admission and given that her rate improved with Cardizem therapy, she was discharged home with recommendation to follow-up. She has previously followed with Dr. Bey at [facility]. Patient was recently seen in [facility] on 12/18/2021 noted to be in atrial fibrillation with rapid ventricular response rate. At that time, she had not been very compliant with her medications. While in the emergency room, she was administered 2 doses of intravenous diltiazem with no significant decrease in heart rate. She was also given intravenous amiodarone and admitted for better rate control. Her anticoagulation was resumed, and metoprolol was increased to 100 mg twice daily. From a cardiac standpoint, the patient is doing well. She denies any palpitations, chest pain, pressure or heaviness. She denies SOB, Orthopnea, and PND. She does not have bleeding issues; no blood in urine, stool or nosebleeds. She does have complaints of fatigue. She denies myalgias, or claudication. She does not have edema, or sudden weight gain. She does have dizziness/lightheadedne ss/near syncope when in atrial fibrillation. She denies syncopal or headaches. Intake Vital Signs 01/03/22 13:34 Height 5 ft 6 in Weight: 149 lb BMI 24.0 BP 130/72 H Blood Pressure Location Lt brachial Position Sitting Respiration 18 Pulse 57 L Pulse Source Monitor Pulse Oximetry (%) 98 Intake Visit Reasons: 2 WK F U [facility] Rug Scratcher Required: No Accompanied by: no one Is patient in pain?: No Allergies levofloxacin [From Levaquin] Allergy (Verified 01/03/22 13:50) Rash phenytoin [From Dilantin] Allergy (Verified 01/03/22 13:50) Swelling sertraline Adverse Reaction (Intermediate, Verified 01/03/22 13:50) anxiety Medications tramadol 1 tab PO BID PRN 04/19/19 [History Confirmed 01/03/22] lisinopril 20 mg PO DAILY 01/08/21 [History Confirmed 01/03/22] budesonide-formoterol HFA 160 mcg-4.5 mcg/actuation aerosol inhaler 2 puff INHALATION BID 02/05/21 [History Confirmed 01/03/22] albuterol sulfate 90 mcg/actuation aerosol inhaler 2 puff INHALATION Q4H PRN PRN #8.5 g 08/06/21 [Rx Confirmed 01/03/22] hydrochlorothiazide 25 mg tablet 25 mg PO DAILY #90 tab 08/06/21 [Rx Confirmed 01/03/22] dronedarone 400 mg tablet 400 mg PO BID #60 tab 08/14/21 [Rx Confirmed 01/03/22] clonazepam 2 mg PO BID PRN 12/18/21 [History Confirmed 01/03/22] apixaban 5 mg tablet 5 mg PO BID #180 tab 01/03/22 [Rx Confirmed 01/03/22] aspirin 81 mg capsule 81 mg PO DAILY #90 cap 01/03/22 [Rx Confirmed 01/03/22] metoprolol tartrate 100 mg tablet 100 mg PO BID 30 Days #180 tab 01/03/22 [Rx Confirmed 01/03/22] REPLACED BY [facility] Medical History (Updated 01/03/22 @ 14:11 by Violette Rocha GRAIN MILL PRODUCTS INSPECTOR, GRAIN MILL PRODUCTS INSPECTOR-C) Anemia 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 Atrial fibrillation with RVR COPD (chronic obstructive pulmonary disease) COPD (chronic obstructive pulmonary disease) Depression Essential hypertension GERD (gastroesophageal reflux disease) Hyperlipidemia Irritable bowel Left atrial enlargement Myoclonic disorder Paroxysmal atrial fibrillation with RVR Secondary pulmonary hypertension Sigmoid diverticulitis Thyroid nodule Tobacco abuse Surgical History History of breast lump removal History of coronary artery stent placement (05/08/18) History of left heart catheterization (05/08/15) History of lobectomy of thyroid History of thyroidectomy History of total abdominal hysterectomy Family History (Reviewed 01/03/22 @ 13:50 (more content not included)... Normal [facility] Basophil percentageon 2021 Basophil percentage 3.3 mg/dL 2.5-4.9 [facility] Work Phone: Bilirubin [Mass/Vol] 0.30 mg/dL 0.20-1.00 [facility] Work Phone: Comment on above: For patients on eltr ombopag therapy, use of Dimension [place] TBIL is not recommended. Chloride [Moles/Vol] 110 mmol/L 98-107 [facility] Work Phone: Glucose [Mass/Vol] 105 mg/dL 74-106 [facility] Work Phone: Comment on above: Fasting Glucose resu lt from 100 to 125 mg/dL suggests IMPAIRED HOMEOSTASIS per A.D.A. criteria. Potassium [Moles/Vol] 4.1 mmol/L 3.5-5.1 [facility] Work Phone: Protein [Mass/Vol] 6.4 g/dL 6.4-8.2 [facility] Work Phone: Sodium [Moles/Vol] 138 mmol/L 136-145 [facility] Work Phone: Comprehensive Metabolic Prof caon 12-19-2021 Albumin [Mass/Vol] 3.2 g/dL Normal 3.2-5.0 [facility] Comment on above: Performed By: #### L 501.5200, L501.9520, L500.4050, L501.2300 ####[facility] [address] [place], [address] Albumin/Globulin [Mass ratio] 1.0 {ratio} Normal 0.9-2.4 [facility] Comment on above: Performed By: #### L 501.5200, L501.9520, L500.4050, L501.2300 ####[facility] [address] [place], [address] ALK P 77 U/L Normal 45-117 [facility] Comment on above: Performed By: #### L 501.5200, L501.9520, L500.4050, L501.2300 ####[facility] [address] [place], [address] ALT [Catalytic activity/Vol] 15 U/L Normal 13-56 [facility] Comment on above: Performed By: #### L 501.5200, L501.9520, L500.4050, L501.2300 ####[facility] [address] [place], [address] AST [Catalytic activity/Vol] 13 U/L Low 15-37 [facility] Comment on above: Performed By: #### L 501.5200, L501.9520, L500.4050, L501.2300 ####[facility] [address] [place], [address] Bilirubin [Mass/Vol] 0.30 mg/dL Normal 0.20-1.00 [facility] Comment on above: Result Comment: For patients on eltrombopag therapy, use of Dimension [place] TBIL is not recommended. Performed By: #### L 501.5200, L501.9520, L500.4050, L501.2300 ####[facility] [address] [place], [address] BUN/CRE 22.2 RATIO High 10-20 [facility] Comment on above: Performed By: #### L 501.5200, L501.9520, L500.4050, L501.2300 ####[facility] [address] [place], [address] CA,Total 8.2 mg/dL Low 8.5-10.1 [facility] Comment on above: Performed By: #### L 501.5200, L501.9520, L500.4050, L501.2300 ####[facility] [address] [place], [address] Chloride [Moles/Vol] 110 mmol/L High 98-107 [facility] Comment on above: Performed By: #### L 501.5200, L501.9520, L500.4050, L501.2300 ####[facility] [address] [place], [address] CO2 [Moles/Vol] 24.0 mmol/L Normal 21.0-32.0 [facility] Comment on above: Performed By: #### L 501.5200, L501.9520, L500.4050, L501.2300 ####[facility] [address] [place], [address] Creatinine [Mass/Vol] 0.99 mg/dL Normal 0.55-1.02 [facility] Comment on above: Result Comment: The validity of the calculated GFR GFRAA in patients over 70 years has not been determined. Clinical correlation is essential. Performed By: #### L 501.5200, L501.9520, L500.4050, L501.2300 ####[facility] [address] [place], [address] ECRCL 49.50 ml/min Normal [facility] Comment on above: Performed By: #### L 501.5200, L501.9520, L500.4050, L501.2300 ####[facility] [address] [place], [address] EST GFR - AA 71 mL/min Normal >60 [facility] Comment on above: Result Comment: Afri can Norwegian GFR Calc Performed By: #### L 501.5200, L501.9520, L500.4050, L501.2300 ####[facility] [address] [place], [address] GAP 4 Low 5-15 [facility] Comment on above: Performed By: #### L 501.5200, L501.9520, L500.4050, L501.2300 ####[facility] [address] [place], [address] GFR/1.73 sq M.predicted among non-blacks MDRD (S/P/Bld) [Vol rate/Area] 59 mL/min/{1.73_m2} Low >60 [facility] Comment on above: Result Comment: Non- GFR Calc Performed By: #### L 501.5200, L501.9520, L500.4050, L501.2300 ####[facility] [address] [place], [address] Globulin (S) [Mass/Vol] 3.2 g/dL Normal 2.2-4.2 [facility] Comment on above: Performed By: #### L 501.5200, L501.9520, L500.4050, L501.2300 ####[facility] [address] [place], [address] Glucose [Mass/Vol] 105 mg/dL Normal 74-106 [facility] Comment on above: Result Comment: Fast ing Glucose result from 100 to 125 mg/dL suggests IMPAIRED HOMEOSTASIS per A.D.A. criteria. Performed By: #### L 501.5200, L501.9520, L500.4050, L501.2300 ####[facility] [address] [place], [address] Potassium [Moles/Vol] 4.1 mmol/L Normal 3.5-5.1 [facility] Comment on above: Performed By: #### L 501.5200, L501.9520, L500.4050, L501.2300 ####[facility] [address] [place], [address] Sodium [Moles/Vol] 138 mmol/L Normal 136-145 [facility] Comment on above: Performed By: #### L 501.5200, L501.9520, L500.4050, L501.2300 ####[facility] [address] [place], [address] T PROT 6.4 g/dL Normal 6.4-8.2 [facility] Comment on above: Performed By: #### L 501.5200, L501.9520, L500.4050, L501.2300 ####[facility] [address] [place], [address] Urea nitrogen [Mass/Vol] 22 mg/dL High 7-18 [facility] Comment on above: Performed By: #### L 501.5200, L501.9520, L500.4050, L501.2300 ####[facility] [address] [place], [address] Discharge Instructionon Discharge Instruction [facility] Medical Records Department [address] [place] [address] Instructions for Home/Discharge Instructions 12/19/21 1057 MR#: [id number] Acct: [id number] Name: CHRISTY MOISE Kristian Rep #: [id number] : 1950 71 From: Leanna John NP [employer] PCP: Dr. Adarsh Duggan MD Status:ADM IN Discharge Instructions Diet Discharge Diet: Low fat / Low cholesterol Activity Discharge Activity: Return to Normal Activity Dressing / Incision Call your doctor if you observe: Shortness of breath, Dizziness, Chest pain and Increased palpitations (irregular heartbeat) Follow Up Care Test Results: Test results from this visit will be discussed in further detail at your follow-up appointment, if applicable. Discharge Plan Admission Admit Date/Time: 12/18/21 15:43 Primary Reason for Your Visit: Atrial fibrillation Attending Provider: Berry Franks Primary Care Provider: Adarsh Duggan Consulting Providers: Yousif Mendoza Discharge Orders/Prescriptions Prescriptions: New metoprolol tartrate 100 mg Tablet 100 mg PO BID 30 Days Qty: 60 RF: 0 aspirin 81 mg capsule 81 mg PO DAILY Qty: 30 RF: 0 Continued budesonide-formoterol 160-4.5 mcg/actuation HFA aerosol inhaler 2 puff inhalation BID RF: 0 albuterol sulfate 90 mcg/actuation HFA aerosol inhaler 2 puff inhalation Q4H PRN PRN (Reason: Sob /Or Wheezing) Qty: 8.5 RF: 0 hydrochlorothiazide 25 mg tablet 25 mg PO DAILY Qty: 90 RF: 3 tramadol 50 MG tablet 1 tab PO BID PRN (Reason: Pain) RF: 0 lisinopril 20 mg tablet 20 mg PO DAILY RF: 0 clonazepam 2 mg tablet 2 mg PO BID PRN (Reason: Anxiety) RF: 0 Eliquis 5 mg tablet 5 mg PO BID Qty: 60 RF: 0 Multaq 400 mg tablet 400 mg PO BID Qty: 60 RF: 11 Discontinued metoprolol succinate 100 mg tablet extended release 24 hr 100 mg PO DAILY RF: 0 Referrals / Follow Up: Adarsh Duggan MD [Primary Care Provider] - In 1 Week Jose Dave NP, [employer] [Nurse Practitioner] - In 1 Week (Requesting EP referral at follow-up appointment) Disposition Disposition (needs filled in before D/C Order can be placed): Home, Self Care 12/19/21 1115 Leanna John NP [employer] CC: Dr. Yousif Mendoza MD; Dr. Adarsh Duggan MD Signed Normal [facility] Laboratory - Chemistry and C hemistry - challengeon 12-19-2021 ALP [Catalytic activity/Vol] 77 U/L 45-117 [facility] Work Phone: ALT [Catalytic activity/Vol] 15 U/L 13-56 [facility] Work Phone: CO2 [Moles/Vol] 24.0 mmol/L 21.0-32.0 [facility] Work Phone: Globulin (S) [Mass/Vol] 3.2 g/dL 2.2-4.2 [facility] Work Phone: Magnesium [Mass/Vol] 1.9 mg/dL 1.6-2.6 [facility] Work Phone: Urea nitrogen/Creatinine [Mass ratio] 22.2 mg/mg 10-20 [facility] Work Phone: Magnesiumon 12-19-2021 Magnesium [Mass/Vol] 1.9 mg/dL Normal 1.6-2.6 [facility] Comment on above: Performed By: #### L 501.4690, L501.9520, L500.4050, L501.2300 ####[facility] [address] [place], [place], [id number] No Panel Informationon 12-19 Estimated Creatinine Clearance Calc 49.50 ml/min [facility] Work Phone: Estimated GFR (MDRD) Amer 71 mL/min >60 [facility] Work Phone: Comment on above: GFR Calc Estimated GFR (MDRD) Non-Af Amer 59 mL/min >60 [facility] Work Phone: Comment on above: Non- GFR Calc Thyroid Stimulating Hormone (TSH) 1.84 uIU/mL 0.358-3.74 [facility] Work Phone: Phosphoruson 12-19-2021 Phosphate [Mass/Vol] 3.3 mg/dL Normal 2.5-4.9 [facility] Comment on above: Performed By: #### L 501.5200, L501.9520, L500.4050, L501.2300 ####[facility] [address] [place], [place], [address] Serum or plasma albumin evelin urement (mass/volume)on 12-19-2021 Albumin [Mass/Vol] 3.2 g/dL 3.2-5.0 [facility] Work Phone: Serum or plasma albumin/glob ulin mass ratioon 12-19-2021 Albumin/Globulin [Mass ratio] 1.0 {ratio} 0.9-2.4 [facility] Work Phone: Serum or plasma calcium evelin urement (mass/volume)on 12-19-2021 Calcium [Mass/Vol] 8.2 mg/dL 8.5-10.1 [facility] Work Phone: Serum or plasma creatinine m easurement (mass/volume)on 12-19-2021 Creatinine [Mass/Vol] 0.99 mg/dL 0.55-1.02 [facility] Work Phone: Comment on above: The validity of the calculated GFR & GFRAA in patients over 70 years has not been determined. Clinical correlation is essential. Serum or plasma urea nitroge n measurement (mass/volume)on 12-19-2021 Urea nitrogen [Mass/Vol] 22 mg/dL 7-18 [facility] Work Phone: Thin prep Papanicolaou smear with manual screeningon 12-19-2021 Thin prep Papanicolaou smear with manual screening 13 U/L 15-37 [facility] Work Phone: Thin prep Papanicolaou smear with manual screening 4 5-15 [facility] Work Phone: Thyroid Stim Hormone (TSH)on 12-19-2021 TSH 1.84 uIU/mL Normal 0.358-3.74 [facility] Comment on above: Performed By: #### L 501.5200, L501.9520, L500.4050, L501.2300 ####[facility] [address] [facility] [place], [address] 12 Lead EKGon 12-18-2021 12 Lead EKG [facility] Cardiovascular Services [address] [place] [address] 12 Lead EKG 12/18/21 2104 MR#: [id number] Acct: [id number] Name: CHRISTY MOISE Kristian Rep #: [id number] : 1950 71 From: Yousif Mendoza MD Attending Dr: Dr. Berry Franks MD Status: DIS IN Ordering Dr: Areli Dominguez DO Date: 12/18/21 Location: [facility] Sex: F C Admitted: 12/18/21 Test Reason : RYTHM CHANGE Blood Pressure : / mmHG Vent. Rate : 063 BPM Atrial Rate : 063 BPM P-R Int : 152 ms QRS Dur : 080 ms QT Int : 428 ms P-R-T Axes : 049 045 123 degrees QTc Int : 437 ms Normal sinus rhythm Nonspecific ST and T wave abnormality Abnormal ECG Confirmed by YOUSIF MENDOZA MD ([id number]), offline editor LUH CUTLER ([id number]) on 12/26/2021 1:03:57 PM Referred By: ALBERTO Confirmed By:YOUSIF MENDOZA MD 12/26/21 1303 Date Yousif Mendoza MD CC: Dr. Adarsh Duggan MD; Dr. Areli Dominguez DO; Dr. Berry Franks MD Signed [facility] 12 Lead EKG [facility] Cardiovascular Services [address] [place] [address] 12 Lead EKG 12/18/21 1112 MR#: [id number] Acct: [id number] Name: CHRISTY MOISE Rep #: [id number] : 1950 71 From: Yousif Mendoza MD Attending Dr: Dr. Berry Franks MD Status: DIS IN Ordering Dr: Logan Morel MD Date: 12/18/21 Location: [facility] Sex: F C Admitted: 12/18/21 Test Reason : PALPS/DIZZY Blood Pressure : / mmHG Vent. Rate : 155 BPM Atrial Rate : 153 BPM P-R Int : 000 ms QRS Dur : 076 ms QT Int : 306 ms P-R-T Axes : 000 034 084 degrees QTc Int : 491 ms Atrial fibrillation Low voltage QRS Nonspecific ST abnormality Abnormal ECG Confirmed by YOUSIF MENDOZA MD ([id number]), offline editor ANDREA MCNAIR ([id number]) on 12/25/2021 10:24:12 AM Referred By: VARUN Confirmed By:YOUSIF MENDOZA MD 12/25/21 1024 Date Yousif Mendoza MD CC: Dr. Logan Morel MD; Dr. Adarsh Duggan MD; Dr. Berry Franks MD Signed [facility] Absolute lymphocyte counton 12-18-2021 Lymphocytes Auto (Unsp spec) [#/Vol] 1.50 10*3/uL 0.83-4.51 [facility] Work Phone: Basic Metabolic Profile (BMP )on 12-18-2021 BUN/CRE 14.4 RATIO Normal 10-20 [facility] Comment on above: Order Comment: 1Y Performed By: #### L 100.0100, L500.2500, L501.5425 ####[facility] [address] [place], [address] CA,Total 9.8 mg/dL Normal 8.5-10.1 [facility] Comment on above: Order Comment: 1Y Performed By: #### L 100.0100, L500.2500, L501.5425 ####[facility] [address] [place], [address] Chloride [Moles/Vol] 106 mmol/L Normal 98-107 [facility] Comment on above: Order Comment: 1Y Performed By: #### L 100.0100, L500.2500, L501.5425 ####[facility] [address] [place], [address] CO2 [Moles/Vol] 27.0 mmol/L Normal 21.0-32.0 [facility] Comment on above: Order Comment: 1Y Performed By: #### L 100.0100, L500.2500, L501.5425 ####[facility] [address] [place], [address] Creatinine [Mass/Vol] 1.25 mg/dL High 0.55-1.02 [facility] Comment on above: Order Comment: 1Y Result Comment: The validity of the calculated GFR GFRAA in patients over 70 years has not been determined. Clinical correlation is essential. Performed By: #### L 100.0100, L500.2500, L501.5425 ####[facility] [address] [place], [address] ECRCL 39.20 ml/min Normal [facility] Comment on above: Order Comment: 1Y Performed By: #### L 100.0100, L500.2500, L501.5425 ####[facility] [address] [place], [address] EST GFR - AA 54 mL/min Low >60 [facility] Comment on above: Order Comment: 1Y Result Comment: Afri can Norwegian GFR Calc Performed By: #### L 100.0100, L500.2500, L501.5425 ####[facility] [address] [place], [address] GAP 4 Low 5-15 [facility] Comment on above: Order Comment: 1Y Performed By: #### L 100.0100, L500.2500, L501.5425 ####[facility] [address] [place], [address] GFR/1.73 sq M.predicted among non-blacks MDRD (S/P/Bld) [Vol rate/Area] 45 mL/min/{1.73_m2} Low >60 [facility] Comment on above: Order Comment: 1Y Result Comment: Non- GFR Calc Performed By: #### L 100.0100, L500.2500, L501.5425 ####[facility] [address] [place], [address] Glucose [Mass/Vol] 128 mg/dL High 74-106 [facility] Comment on above: Order Comment: 1Y Result Comment: Fast ing Glucose result greater than or equal to 126 mg/dL suggests DIABETES MELLITUS per A.D.A. criteria. Performed By: #### L 100.0100, L500.2500, L501.5425 ####[facility] [address] [place], [address] Potassium [Moles/Vol] 4.2 mmol/L Normal 3.5-5.1 [facility] Comment on above: Order Comment: 1Y Performed By: #### L 100.0100, L500.2500, L501.5425 ####[facility] [address] [place], [address] Sodium [Moles/Vol] 137 mmol/L Normal 136-145 [facility] Comment on above: Order Comment: 1Y Performed By: #### L 100.0100, L500.2500, L501.5425 ####[facility] [address] [place], [address] Urea nitrogen [Mass/Vol] 18 mg/dL Normal 7-18 [facility] Comment on above: Order Comment: 1Y Performed By: #### L 100.0100, L500.2500, L501.5425 ####[facility] [address] [place], [address] Basophil percentageon -2021 Basophils/100 WBC (Bld) 0.6 % 0-1 [facility] Work Phone: [phone] Chloride [Moles/Vol] 106 mmol/L 98-107 [facility] Work Phone: [phone] Eosinophils/100 WBC (Bld) 1.6 % 0-5 [facility] Work Phone: Glucose [Mass/Vol] 128 mg/dL 74-106 [facility] Work Phone: [phone] Comment on above: Fasting Glucose resu lt greater than or equal to 126 mg/dL suggests DIABETES MELLITUS per A.D.A. criteria. Neutrophils (Bld) [#/Vol] 6.6 10*3/uL 2.0-7.7 [facility] Work Phone: Neutrophils/100 WBC (Bld) 73.9 % 47-70 [facility] Work Phone: [phone] Potassium [Moles/Vol] 4.2 mmol/L 3.5-5.1 [facility] Work Phone: [phone] Sodium [Moles/Vol] 137 mmol/L 136-145 [facility] Work Phone: [phone] WBC (Bld) [#/Vol] 8.9 10*3/uL 4.4-11.0 [facility] Work Phone: [phone] Blood erythrocytes count (nu mber/volume)on 12-18-2021 RBC (Bld) [#/Vol] 4.24 10*6/uL 4.2-5.4 [facility] Work Phone: [phone] Blood hemoglobin measurement (mass/volume)on 12-18-2021 Hemoglobin (Bld) [Mass/Vol] 13.3 g/dL 12.0-15.0 [facility] Work Phone: [phone] Blood lymphocytes/100 leukoc yteson 12-18-2021 Lymphocytes/100 WBC (Bld) 16.8 % 19-41 [facility] Work Phone: [phone] Blood monocytes/100 leukocyt eson 12-18-2021 Monocytes/100 WBC (Bld) 6.8 % 0-10 [facility] Work Phone: [phone] Blood platelet mean volumeon 12-18-2021 Platelet mean volume (Bld) [Entitic vol] 10.4 fL 6.2-12.0 [facility] Work Phone: CBC W/Diff, Automatedon 04-0 Absolute Lymph 1.50 X10 3/uL Normal 0.83-4.51 [facility] Comment on above: Performed By: #### L 100.0100, L500.2500, L501.5425 ####[facility] [address] [place], [address] Absolute Neut 6.6 X10 3/uL Normal 2.0-7.7 [facility] Comment on above: Performed By: #### L 100.0100, L500.2500, L501.5425 ####[facility] [address] [place], [address] Basophils/100 WBC (Bld) 0.6 % Normal 0-1 [facility] Comment on above: Performed By: #### L 100.0100, L500.2500, L501.5425 ####[facility] [address] [place], [address] Eosinophils/100 WBC (Bld) 1.6 % Normal 0-5 [facility] Comment on above: Performed By: #### L 100.0100, L500.2500, L501.5425 ####[facility] [address] [place], [address] Erythrocyte distribution width (RBC) [Ratio] 13.2 % Normal 11.6-14.6 [facility] Comment on above: Performed By: #### L 100.0100, L500.2500, L501.5425 ####[facility] [address] [place], [address] Hematocrit (Bld) [Volume fraction] 40.8 % Normal 37-47 [facility] Comment on above: Performed By: #### L 100.0100, L500.2500, L501.5425 ####[facility] [address] [place], [address] Hemoglobin (Bld) [Mass/Vol] 13.3 g/dL Normal 12.0-15.0 [facility] Comment on above: Performed By: #### L 100.0100, L500.2500, L501.5425 ####[facility] [address] [place], [address] IG% 0.300 Normal 0.0-0.9 [facility] Comment on above: Result Comment: IG% - Immature Granulocytes (promyelocytes, myelocytes and metamyelocytes) > 1% indicates that a LEFT SHIFT is Present. Performed By: #### L 100.0100, L500.2500, L501.5425 ####[facility] [address] [place], [address] Lymphocytes/100 WBC (Bld) 16.8 % Low 19-41 [facility] Comment on above: Performed By: #### L 100.0100, L500.2500, L501.5425 ####[facility] [address] [place], [address] MCH (RBC) [Entitic mass] 31.4 pg Normal 27.0-32.0 [facility] Comment on above: Performed By: #### L 100.0100, L500.2500, L501.5425 ####[facility] [address] [place], [address] MCHC (RBC) [Mass/Vol] 32.6 g/dL Normal 32-36 [facility] Comment on above: Performed By: #### L 100.0100, L500.2500, L501.5425 ####[facility] [address] [place], [address] MCV (RBC) [Entitic vol] 96.2 fL Normal 81-99 [facility] Comment on above: Performed By: #### L 100.0100, L500.2500, L501.5425 ####[facility] [address] [place], [address] Monocytes/100 WBC (Bld) 6.8 % Normal 0-10 [facility] Comment on above: Performed By: #### L 100.0100, L500.2500, L501.5425 ####[facility] [address] [place], [address] Neutrophils/100 WBC (Bld) 73.9 % High 47-70 [facility] Comment on above: Performed By: #### L 100.0100, L500.2500, L501.5425 ####[facility] [address] [place], [address] Nucleated RBC (Bld) [#/Vol] 0 10*3/uL Normal 0-5 [facility] Comment on above: Performed By: #### L 100.0100, L500.2500, L501.5425 ####[facility] [address] [place], [address] Platelet mean volume (Bld) [Entitic vol] 10.4 fL Normal 6.2-12.0 [facility] Comment on above: Performed By: #### L 100.0100, L500.2500, L501.5425 ####[facility] [address] [place], [address] Platelets (Bld) [#/Vol] 300 10*3/uL Normal 150-450 [facility] Comment on above: Performed By: #### L 100.0100, L500.2500, L501.5425 ####[facility] [address] [place], [address] RBC (Bld) [#/Vol] 4.24 10*6/uL Normal 4.2-5.4 [facility] Comment on above: Performed By: #### L 100.0100, L500.2500, L501.5425 ####[facility] [address] [place], [address] RDW SD 47.0 fl High 35.1-43.9 [facility] Comment on above: Performed By: #### L 100.0100, L500.2500, L501.5425 ####[facility] [address] [place], [address] WBC (Bld) [#/Vol] 8.9 10*3/uL Normal 4.4-11.0 [facility] Comment on above: Performed By: #### L 100.0100, L500.2500, L501.5425 ####[facility] [address] [place], [address] Chest 1 View (Portable)on 04 -06-2022 Chest 1 View (Portable) [facility] Imaging Services [address] [place] [address] Chest 1 View (Portable) MR#: [id number] Acct: [id number] Name: CHRISTY MOISE Rep #: [id number] : 1950 F 71 From: Casa chavez MD PCP: Dr. Adarsh Duggan MD Status: REG ER Study: Chest 1 View (Portable) Date of Exam: 12/18/21 Exam# [id number] Ordering Dr: Logan Morel MD STUDY: X-RAY CHEST REASON FOR EXAM: Female, 71 years old. Chest pain TECHNIQUE: Single AP portable view of the chest. COMPARISON: Comparison is made with prior study dated 07/13/2021. FINDINGS: EKG electrodes are seen. Hyperinflation. Mild degree of increased markings at the lung bases slightly worse at the right lung base. This may represent either atelectasis and/or early infiltrates. There is no demonstrated pleural abnormality. Normal size heart. Normal mediastinum and sheron. Normal visualized pulmonary arteries. There is atherosclerotic calcification of the aortic arch with tortuosity. There is a mild levoscoliosis of the thoracic spine. Normal visualized ribs, clavicles, and shoulders. There is no demonstrated abnormality of the visualized soft tissue structures of the upper abdomen. RAD/Chest 1 View (Portable) IMPRESSION: Hyperinflation. Increased markings at the lung bases slightly more prominent on the right side. Early infiltrate should be ruled out. Electronically Signed: Casa Livingston MD at 12:07 EDT , CC: Dr. Logan Morel MD; Dr. Adarsh Duggan MD Manager Telecom: Signed Normal [facility] Consultation - Cardiologyon 12-18-2021 Consultation - Cardiology [facility] Medical Records Department [address] [place] [address] Consultation - Cardiology 12/18/21 1712 MR#: [id number] Acct: [id number] Name: CHRISTY MOISE Rep #: [id number] : 1950 71 From: Yousif Mendoza MD PCP: Dr. Adarsh Duggan MD Status:ADM IN Location: [place] [address] Assessment Plan Assessment/Plan (1) Atrial fibrillation with RVR: PLAN: She does have paroxysmal atrial fibrillation and on this occasion appears to have an uncontrolled ventricular response rate. The present episode may have been precipitated by the lack of compliance with her medications. I would like her to resume her anticoagulation as well as increase her beta-fariba to short acting metoprolol tartrate 100 mg twice a day. She has previously been on Multaq which would be continued for now. At some point the discussion as to whether she would be a candidate for A. fib ablation have been raised. She is not sure whether she wants to discuss this at this particular time but this would have to be revisited. (2) History of coronary artery stent placement: PLAN: She does have a history of previous coronary artery stenting. I do not have any indication that this is ischemically mediated. We will continue to monitor her with serial cardiac enzymes. (3) Essential hypertension: PLAN: Her blood pressure appears to be under good control at this particular time I would not recommend that we make any changes with respect to her blood pressure medications. She will remain on the beta-fariba as well as the KARINE inhibitor. She will also continue her diuretic regimen. Thank you for allowing me to participate in the care of your patient. Please don't hesitate to call if any issues arise. HPI Consult Data Date of Consult: 12/18/21 HPI Narrative HPI Narrative: CHRISTY MOISE, is a 71 F who presents with palpitations to the emergency room and is noted to be in atrial fibrillation with a rapid ventricular response rate. Unfortunately she has not been very compliant with her medications. She does have a history of coronary artery disease status post PCI and stenting in 2018 at [facility] as well as repeated cardioversions. She also has a history of obstructive lung disease and secondary pulmonary hypertension. She previously used to follow-up with the physicians and [place] but more recently has preferred to be evaluated in this hospital. Her last visit to the office was a few months ago and at that time she had been doing well with no complaints. She had presented to the emergency room in June 2021 and was noted to be in atrial fibrillation with a rapid ventricular response rate and underwent attempted DC cardioversion which was unsuccessful. She was subsequently treated with medication. She denies chest, jaw, or neck discomfort. She states shortness of breath with exertion that improved with inhaler. She denies symptoms of shortness of breath at rest, orthopnea, PND, or sudden weight gain. She continues with bilateral lower extremity edema. She states productive and non- productive chronic cough. She denies palpitations, lightheadedness, dizziness, near syncope, or syncopal episodes. She denies claudication issues. She denies fever or chills. She denies blood in urine, blood in stool, or epistaxis. She denies myalgia. She denies unexplainable fatigue. Her exercise tolerance is stable. In the emergency room today she was administered 2 doses of intravenous diltiazem with not significant slowing and so she was given intravenous amiodarone. It was felt that she should be admitted for better rate control. Her anticoagulation will be restarted. 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 Atrial fibrillation with RVR COPD (chronic obstructive pulmonary disease) COPD (chronic obstructive pulmonary disease) Essential hypertension GERD (gastroesophageal reflux disease) Hyperlipidemia Irritable bowel Left atrial enlargement Myoclonic disorder Paroxysmal atrial fibrillation with RVR Secondary pulmonary hypertension Sigmoid diverticulitis Thyroid nodule Tobacco abuse Home Medications tramadol 1 tab PO BID PRN 04/19/19 [History Last Taken 12/15/21] lisinopril 20 mg PO DAILY 01/08/21 [History Last Taken 12/18/21] budesonide-formoterol HFA 160 mcg-4.5 mcg/actuation aerosol inhaler 2 puff INHALATION BID 02/05/21 [History Last Taken 12/14/21] albuterol sulfate 90 mcg/actuation aerosol inhaler 2 puff INHALATION Q4H PRN PRN #8.5 g 08/06/21 [Rx Last Taken 12/16/21] hydrochlorothiazide 25 mg tablet 25 mg PO DAILY #90 tab 08/06/21 [Rx Last Taken 12/18/21] apixaban 5 mg tablet 5 mg PO BID #60 tab 08/14/21 [Rx Last Taken 12/17/21] dronedarone 400 mg tablet 400 mg PO BID #60 tab 08/14/21 [Rx Last Taken Unknown] clonazepam 2 (more content not included)... Normal [facility] Determination of erythrocyte mean corpuscular volume (MCV)on 12-18-2021 MCV (RBC) [Entitic vol] 96.2 fL 81-99 [facility] Work Phone: Emergency Department Summary on 12-18-2021 Emergency Department Summary [facility] Medical Records Department [address] [place] [address] Emergency Department Summary 12/18/21 MR#: [id number] Acct: [id number] Name: CHRISTY MOISE Rep #: [id number] : 1950 71 From: Logan Morel MD PCP: Dr. Adarsh Duggan MD Status:REG ER Location: ED HPI History of Present Illness Chief Complaint: Palpitations Narrative Narrative: Patient with past medical history of atrial fibrillation, on Eliquis, required cardioversion attempts approximately 5 months ago, presents with lightheadedness and heart palpitations like her previous episodes of atrial fibrillation. She presents with her daughter because at 730 this morning, approximately 4 hours ago, she began feeling lightheaded and while she was at work, she experienced palpitations and was unable to work. She thinks that she is in atrial fibrillation again. They state that she has not missed a dose of her Eliquis, and approximately 5 months ago they attempted to chemically cardiovert her but was unsuccessful. Additionally, electrocardioversion was attempted 3 times, but was unsuccessful. She followed up with the [facility], who wanted to perform ablation, but she cannot get a follow-up appointment until April. Her symptoms began this morning. She has not eaten anything because she did not feel like it. She denies any weight gain. No swelling of her legs. No other symptoms. She feels as if she is in atrial fibrillation again. [facility] Medical History Anemia 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 Atrial fibrillation with RVR COPD (chronic obstructive pulmonary disease) COPD (chronic obstructive pulmonary disease) Essential hypertension GERD (gastroesophageal reflux disease) Hyperlipidemia Irritable bowel Left atrial enlargement Myoclonic disorder Paroxysmal atrial fibrillation with RVR Secondary pulmonary hypertension Sigmoid diverticulitis Thyroid nodule Home Medications tramadol 1 tab PO BID PRN 04/19/19 [History Last Taken 12/15/21] lisinopril 20 mg PO DAILY 01/08/21 [History Last Taken 12/18/21] budesonide-formoterol HFA 160 mcg-4.5 mcg/actuation aerosol inhaler 2 puff INHALATION BID 02/05/21 [History Last Taken 12/14/21] albuterol sulfate 90 mcg/actuation aerosol inhaler 2 puff INHALATION Q4H PRN PRN #8.5 g 08/06/21 [Rx Last Taken 12/16/21] hydrochlorothiazide 25 mg tablet 25 mg PO DAILY #90 tab 08/06/21 [Rx Last Taken 12/18/21] apixaban 5 mg tablet 5 mg PO BID #60 tab 08/14/21 [Rx Last Taken 12/17/21] dronedarone 400 mg tablet 400 mg PO BID #60 tab 08/14/21 [Rx Last Taken Unknown] clonazepam 2 mg PO BID PRN 12/18/21 [History Last Taken 12/16/21] metoprolol succinate 100 mg PO DAILY 12/18/21 [History Last Taken 12/18/21] Allergy/AdvReac Type Severity Reaction Status Date / Time levofloxacin [From Levaquin] Allergy Rash Verified 12/18/21 11:04 phenytoin [From Dilantin] Allergy Swelling Verified 12/18/21 11:04 sertraline AdvReac Intermediate anxiety Verified 12/18/21 11:04 Family History Mother Hypertension CVA (cerebral vascular accident) CAD (coronary artery disease) Father Colon cancer Leukemia Throat cancer Surgical History History of breast lump removal History of coronary artery stent placement (05/08/18) History of left heart catheterization (05/08/15) History of lobectomy of thyroid History of thyroidectomy History of total abdominal hysterectomy Social History housing: house number of children: 1 Smoking Status: Heavy Smoker (>10/day) Tobacco: How many years used: 50 alcohol intake: never substance use type: does not use ROS ROS ED ROS Narrative Constitutional: No fever, no chills. HEENT: No sore throat. No neck pain. No loss of vision. No rhinorrhea. Cardiovascular: Intermittent chest pain. Positive palpitations. No pedal edema. Respiratory: No cough, no shortness of breath. Abdominal: No abdominal pain. Minimal nausea. No vomiting. Genitourinary: No dysuria. No hematuria. Musculoskeletal: No myalgias. No arthralgias. Neurologic: No headaches. No dizziness. Positive lightheadedness. Skin: No rash. No change in color. Psychiatric: No depression. No anxiety. EXAM Physical Exam Narrative Exam Narrative: Afebrile. Vital signs noted. HEENT: Normocephalic. Atraumatic. PERRL, EOMI. Neck soft and supple. No point tenderness or step off. Cardiovascular: Irregularly irregular tachycardia, no murmurs, rubs, or gallops appreciated. Respiratory: No tachypnea. Lungs clear to auscultation bilaterally. Gastrointestinal: Abdomen soft, nontender, with normoactive bowel sounds. No rebound or guarding. Ne (more content not included)... Normal [facility] H AND P Exam - [facility] 12-18-2021 H&P Exam - Hospitalist [facility] Medical Records Department [address] [place] [address] H P Exam - Hospitalist 12/18/21 1619 MR#: [id number] Acct: [id number] Name: CHRISTY MOISE Rep #: [id number] : 1950 71 From: Areli Dominguez DO PCP: Dr. Adarsh Duggan MD Status:REG ER Location: ED HPI - General General Date of Admission: 12/18/21 Date of Service: 12/18/21 Chief Complaint: Lightheadedness/nausea HPI Narrative CHRISTY MOISE, is a 71 F who presented to the emergency department was coming hospital on 12/18/2021 with a chief complaint of lightheadedness and nausea that started approximately 730 this morning. The patient states she felt normal when she got out of bed but then started having palpitations, lightheadedness, and nausea shortly after arriving at work. She has a known history of paroxysmal atrial fibrillation that has been refractory to medical therapy in the past and required cardioversion. She currently is on Multaq, metoprolol succinate 100 mg daily, and apixaban at home however her compliance with these medications has been questionable. She states that her last dose of apixaban was on Thursday evening. Finances appear to be an issue and it sounds like her daughter is helping her obtain these medications. She states that she gets very symptomatic when her heart rates get up into the 130s with associated nausea and lightheadedness. Upon my evaluation her heart rate was 110-120 and she was asymptomatic with regards to lightheadedness and nausea however she had persistent palpitations. She is a smoker of 1 pack/day but denies any other substance abuse. In the emergency department she was treated with Cardizem 20 mg x2 boluses IV push as well as metoprolol 5 mg IV push x1 dose. She was also given 150 mg IV bolus of amiodarone. Unfortunately none of these medications cause cardioversion or improved her rate overall. Unfortunately with noncompliance with regards to her Eliquis we are not comfortable with cardioversion at this time. I discussed the case with Dr. Mendoza from cardiology and he recommended we dose her with metoprolol 100 mg twice daily and discontinue her metoprolol succinate. Her first dose will be at 6 PM today. As well as give her a dig bolus of 0.5 mg x 1 dose. In the emergency department her vital signs were overall unremarkable other than her heart rates being elevated anywhere from 88-140. Her CBC was unremarkable. Her chemistry panel showed normal electrolytes with a slightly elevated serum creatinine at 1.25. Her baseline serum creatinine appears to be 0.8-0.9. Her initial troponin was 24 with a repeat at 31. Her chest x-ray shows hyperinflation with increased markings at the lung bases bilaterally. Her EKG shows atrial fibrillation versus atrial flutter with 2-1 block. In the emergency department upon my evaluation her rhythm appeared to be atrial flutter with variable block. REPLACED BY [facility] Medical History (Updated 12/18/21 @ 16:[address] Areli Dominguez DO) Anemia 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 Atrial fibrillation with RVR COPD (chronic obstructive pulmonary disease) COPD (chronic obstructive pulmonary disease) Essential hypertension GERD (gastroesophageal reflux disease) Hyperlipidemia Irritable bowel Left atrial enlargement Myoclonic disorder Paroxysmal atrial fibrillation with RVR Secondary pulmonary hypertension Sigmoid diverticulitis Thyroid nodule Tobacco abuse Home Medications tramadol 1 tab PO BID PRN 04/19/19 [History Last Taken 12/15/21] lisinopril 20 mg PO DAILY 01/08/21 [History Last Taken 12/18/21] budesonide-formoterol HFA 160 mcg-4.5 mcg/actuation aerosol inhaler 2 puff INHALATION BID 02/05/21 [History Last Taken 12/14/21] albuterol sulfate 90 mcg/actuation aerosol inhaler 2 puff INHALATION Q4H PRN PRN #8.5 g 08/06/21 [Rx Last Taken 12/16/21] hydrochlorothiazide 25 mg tablet 25 mg PO DAILY #90 tab 08/06/21 [Rx Last Taken 12/18/21] apixaban 5 mg tablet 5 mg PO BID #60 tab 08/14/21 [Rx Last Taken 12/17/21] dronedarone 400 mg tablet 400 mg PO BID #60 tab 08/14/21 [Rx Last Taken Unknown] clonazepam 2 mg PO BID PRN 12/18/21 [History Last Taken 12/16/21] metoprolol succinate 100 mg PO DAILY 12/18/21 [History Last Taken 12/18/21] Allergy/AdvReac Type Severity Reaction Status Date / Time levofloxacin [From Levaquin] Allergy Rash Verified 12/18/21 11:04 phenytoin [From Dilantin] Allergy Swelling Verified 12/18/21 11:04 sertraline AdvReac Intermediate anxiety Verified 12/18/21 11:04 Family History Mother Hypertension CVA (cerebral vascular accident) CAD (coronary artery disease) Father Colon cancer Leukemia Throat cancer Surgical History History of breast lump removal History of coronary artery harrison (more content not included)... Normal [facility] Hematocrit Auto (Bld) [Volum e fraction]on 12-18-2021 Hematocrit (Bld) [Volume fraction] 40.8 % 37-47 [facility] Work Phone: [phone] 12-18-2021 TROPONIN-I HS 33 pg/mL Normal 3.0-54.0 [facility] Comment on above: Order Comment: Comme nts: SPECIMEN #3'TROP' Serial specimen #1, #2 or #3: 3 Result Comment: Plecallie se Note: New Test Units and Gender Specific Reference Ranges. For more information see Policy Stat Procedure [place] High Sensitivity Troponin (TNIH) and attachments. Performed By: #### L 501.4020 ####[facility] [address] [place], [place], [id number] TROPONIN-I HS 31 pg/mL Normal 3.0-54.0 [facility] Comment on above: Result Comment: Plea se Note: New Test Units and Gender Specific Reference Ranges. For more information see Policy Stat Procedure [place] High Sensitivity Troponin (TNIH) and attachments. Performed By: #### L 100.0100, L500.2500, L501.4020 #### [facility] [address] [place], [place], [address] [phone] 12-18-2021 TROPONIN-I HS 24 pg/mL Normal 3.0-54.0 [facility] Comment on above: Order Comment: 1Y Result Comment: Plecallie se Note: New Test Units and Gender Specific Reference Ranges. For more information see Policy Stat Procedure [place] High Sensitivity Troponin (TNIH) and attachments. Performed By: #### L 100.0100, L500.2500, L501.5425 ####[facility] [address] [place], [place], [id number] Laboratory - Chemistry and C hemistry - challengeon 12-18-2021 CO2 [Moles/Vol] 27.0 mmol/L 21.0-32.0 [facility] Work Phone: Urea nitrogen/Creatinine [Mass ratio] 14.4 mg/mg 10-20 [facility] Work Phone: Laboratory - Hematology and Cell countson 12-18-2021 Erythrocyte distribution width (RBC) [Entitic vol] 47.0 fL 35.1-43.9 [facility] Work Phone: Erythrocyte distribution width (RBC) [Ratio] 13.2 % 11.6-14.6 [facility] Work Phone: Immature granulocytes/100 WBC (Bld) 0.300 % 0.0-0.9 [facility] Work Phone: Comment on above: IG% - Immature Granu locytes (promyelocytes, myelocytes and metamyelocytes) > 1% indicates that a LEFT SHIFT is Present. MCH (RBC) [Entitic mass] 31.4 pg 27.0-32.0 [facility] Work Phone: Nucleated RBC/100 WBC (Bld) [Ratio] 0 % 0-5 [facility] Work Phone: MCHC Auto (RBC) [Mass/Vol]on 12-18-2021 MCHC (RBC) [Mass/Vol] 32.6 g/dL 32-36 [facility] Work Phone: No Panel Informationon 12-18 Troponin I High Sensitivity 33 pg/mL 3.0-54.0 [facility] Work Phone: Comment on above: Please Note: [place] t Units and Gender Specific Reference Ranges. For more information see Policy Stat Procedure [place] High Sensitivity Troponin (TNIH) and attachments. Troponin I High Sensitivity 31 pg/mL 3.0-54.0 [facility] Work Phone: Comment on above: Please Note: [place] t Units and Gender Specific Reference Ranges. For more information see Policy Stat Procedure [place] High Sensitivity Troponin (TNIH) and attachments. Estimated Creatinine Clearance Calc 39.20 ml/min [facility] Work Phone: Estimated GFR (MDRD) Amer 54 mL/min >60 [facility] Work Phone: Comment on above: GFR Calc Estimated GFR (MDRD) Non-Af Amer 45 mL/min >60 [facility] Work Phone: Comment on above: Non- GFR Calc Platelets bldon 12-18-2021 Platelets (Bld) [#/Vol] 300 10*3/uL 150-450 [facility] Work Phone: Serum or plasma calcium evelin urement (mass/volume)on 12-18-2021 Calcium [Mass/Vol] 9.8 mg/dL 8.5-10.1 [facility] Work Phone: Serum or plasma creatinine m easurement (mass/volume)on 12-18-2021 Creatinine [Mass/Vol] 1.25 mg/dL 0.55-1.02 [facility] Work Phone: Comment on above: The validity of the calculated GFR & GFRAA in patients over 70 years has not been determined. Clinical correlation is essential. Serum or plasma urea nitroge n measurement (mass/volume)on 12-18-2021 Urea nitrogen [Mass/Vol] 18 mg/dL 7-18 [facility] Work Phone: Thin prep Papanicolaou smear with manual screeningon 12-18-2021 Thin prep Papanicolaou smear with manual screening 4 5-15 [facility] Work Phone: CBCon 05-10-2020 Erythrocyte distribution width (RBC) [Ratio] 13.8 % 11.5 - 14.5 % [place], [place] Hematocrit (Bld) [Volume fraction] 36.3 % 35 - 47 % [place] Hemoglobin (Bld) [Mass/Vol] 12.3 g/dL 11.7 - 16 g/dL [place] MCH (RBC) [Entitic mass] 32.0 pg 26 - 34 pg [place] MCHC (RBC) [Mass/Vol] 33.9 % 32 - 36 % [place] MCV (RBC) [Entitic vol] 94.4 fL 79 - 98 fL [place] Platelet mean volume (Bld) [Entitic vol] 8.8 fL 7.4 - 10.4 fL [place] Platelets (Bld) [#/Vol] 261 10*3/uL 140 - 440 10*3/uL [place] RBC (Bld) [#/Vol] 3.84 10*6/uL 3.8 - 5.2 10*6/uL [place] WBC (Bld) [#/Vol] 6.9 10*3/uL 3.6 - 10.7 10*3/uL [place] Comprehensive Metabolic Pane vy 05-10-2020 Albumin [Mass/Vol] 4.1 g/dL 3.5 - 5 g/dL [place], [place] ALP [Catalytic activity/Vol] 66 U/L 38 - 126 U/L [place] ALT [Catalytic activity/Vol] 13 U/L 0 - 34 U/L [place] Comment on above: The ALT test is perf ormed by an updated assay method. Please note that the reference intervals have been changed and are now sex specific. Anion gap [Moles/Vol] 11 mmol/L [place] AST [Catalytic activity/Vol] 22 U/L 15 - 46 U/L [place] Bilirubin Ql (U) 0.4 mg/dL 0.2 - 1.3 mg/dL [place] Calcium [Mass/Vol] 9.0 mg/dL 8.4 - 10. 4 mg/dL [place] Chloride [Moles/Vol] 104 mmol/L 98 - 10 7 mmol/L [place] CO2 [Moles/Vol] 24 mmol/L 22 - 30 mmol/L [place] Creatinine [Mass/Vol] 0.79 mg/dL 0.52 - 1.25 mg/dL [place] EGFR IF NonAfrican [place] 76.5 mL/min >60 [place] Comment on above: KDIGO guidelines pro vide the following GFR categories: Stage GFR(ml/min/1.73 m2) Terms G1 >=90 Normal or high G2 60-89 Mildly decreased* G3a 45-59 Mildly to moderately decreased G3b 30-44 Moderately to severely decreased G4 15-29 Severely decreased G5 <15 Kidney failure *Relative to young adult level. In the absence of evidence of kidney damage, neither GFR category G1 nor G2 fulfill the criteria for CKD. The CKD-EPI equation is validated in individuals 18 years of age and older. Currently the best equation for estimating glomerular filtration rate (GFR) from serum creatinine in children is the Bedside Zaman equation. It is less accurate in patients with extremes of muscle mass, restriction of dietary protein, ingestion of creatine, extra-renal metabolism of creatinine, or treatment with medications that affect renal tubular creatinine secretion. GFR/1.73 sq M predicted among blacks MDRD (S/P/Bld) [Vol rate/Area] 88.6 mL/min/{1.73_m2} >60 [place] Glucose [Mass/Vol] 103 mg/dL High 70 - 100 mg/dL [place] Interpretation and review of laboratory results Abnormal [place] Potassium [Moles/Vol] 3.9 mmol/L 3.5 - 5.1 mmol/L [place] Protein [Mass/Vol] 6.7 g/dL 6.3 - 8.2 g/dL [place] Sodium [Moles/Vol] 139 mmol/L 135 - 145 mmol/L [place] Urea nitrogen [Mass/Vol] 21 mg/dL High 7 - 20 mg/dL [place] Otheron 05-10-2020 Test Performed by [facility], [facility] Dylan Reynolds [address] Vitamin B12on 05-10-2020 Cobalamin (Vitamin B12) [Mass/Vol] 664 pg/mL 239 - 931 pg/mL [place] Test Performed by [facility], [facility] Dylan Reynolds [address] Vitamin D 25 Hydroxyon 05-10 Interpretation and review of laboratory results Abnormal [place] Vit D, 25-Hydroxy 28 ng/mL Low 30 - 100 ng/mL [place] Comment on above: Therapy is based on measurement of Total 25-OHD with the following classification levels: Less than 20 ng/mL: Indicative of Vit D deficiency 20-30 ng/mL: Suggests Vit D insufficiency Optimal: Greater than or equal to 30 ng/mL Test performed by [employer] Competitive Immunoassay, measuring Total Vitamin D, not individual fractions. Test Performed by [facility], [address], [place], [place] [address] [facility] [place], [place] Lipid Panelon 03-15-2020 Cholesterol [Mass/Vol] 182 mg/dL <200 [facility] [place] [place] Cholesterol in HDL [Mass/Vol] 44 mg/dL 40 - 60 mg/dL [facility], [place] Cholesterol in LDL [Mass/Vol] 115 mg/dL Abnormal <100 [facility] [place] Cholesterol.total/Ch olesterol in HDL [Mass ratio] 4 {ratio} [facility] [place] Comment on above: Ref Range: < 3 Low Risk for CHD 3-6 Mod Risk for CHD > 6 High Risk for CHD Interpretation and review of laboratory results Abnormal [facility] [place] Triglyceride [Mass/Vol] 117 mg/dL <150 [facility] [place] Test Performed by [facility], [address] , [place], [place] [address] [facility] [place] COVID PCR, SCREENING CONGREG ATEon 03-07-2020 CORONAVIRUS 2019,PCR NOT DETECTED Normal Not Detected [facility] Comment on above: Result Comment: Nega tive (NOT DETECTED) result does not preclude 2019-nCoV infection and should not be used as the sole basis for treatment or other patient management decisions. Negative results must be combined with clinical observations, patient history, and epidemiological information. Positive (DETECTED) result is for the presumptive identification of 2019-nCoV RNA. The 2019-nCoV RNA is generally detectable in upper and lower respiratory specimens during infection, however it can also be detected in stool. Positive results are indicative of active infection with 2019-nCoV but do not rule out bacterial infection or co-infection with other viruses. The agent detected may not be the definite cause of disease. INCONCLUSIVE and INVALID result signify that a negative or positive result could not be rendered often due to insufficient sample adequacy or quality. An INCONCLUSIVE result may also represent a low level positive result that cannot be called with a high degree of certainty. If clinically indicated, it is suggested that another sample be collected and retested. This test has not been cleared or approved by the FDA; however, the FDA has determined through the Emergency Use Authorization (EUA) process that such approval is not required at this time. This test is only authorized for the duration of time the declaration that circumstances exist to justify the authorization of the emergency use of in vitro diagnostic tests for the detection of SARS-CoV-2 virus and/or diagnosis of COVID-19 infection under section 564(b)(1) of the Act, 21 U.S.C. 360bbb-3(b)(1), unless the authorization is terminated or revoked sooner. [facility] ([facility]) is certified under CLIA-88 as qualified to perform high complexity testing. This tests analytical performance characteristics have been determined by [facility]. Testing is performed at [facility] is located at [address] [place] [address] (CLIA License #[id number], CAP #[id number]). Performed By: #### C VCLA #### [facility] [address] [place] [address] COVID PCR, SCREENING CONGREG ATEon 03-06-2020 Lab Specimen Source Nasal, Nasopharyngeal Normal [facility] Comment on above: Performed By: #### C VCLA #### [facility] [address] [place] [address] CBCon 01-31-2020 Erythrocyte distribution width (RBC) [Ratio] 13.6 % 11.5 - 14.5 % [place] Hematocrit (Bld) [Volume fraction] 40.2 % 35 - 47 % [place] Hemoglobin (Bld) [Mass/Vol] 13.3 g/dL 11.7 - 16 g/dL [place] MCH (RBC) [Entitic mass] 31.5 pg 26 - 34 pg [place] MCHC (RBC) [Mass/Vol] 32.9 % 32 - 36 % [place] MCV (RBC) [Entitic vol] 95.6 fL 79 - 98 fL [place] Platelet mean volume (Bld) [Entitic vol] 9.1 fL 7.4 - 10.4 fL [place] Platelets (Bld) [#/Vol] 259 10*3/uL 140 - 440 10*3/uL [place] RBC (Bld) [#/Vol] 4.21 10*6/uL 3.8 - 5.2 10*6/uL [place], [place] WBC (Bld) [#/Vol] 7.9 10*3/uL 3.6 - 10.7 10*3/uL [place], [place] Test Performed by [facility], [address] , [place], [place] [id number] [place] [address] Comprehensive Metabolic Pane vy 01-31-2020 Albumin [Mass/Vol] 4.3 g/dL 3.5 - 5 g/dL [place], [place] ALP [Catalytic activity/Vol] 77 U/L 38 - 126 U/L [place] ALT [Catalytic activity/Vol] 11 U/L 0 - 34 U/L [place] Comment on above: The ALT test is perf ormed by an updated assay method. Please note that the reference intervals have been changed and are now sex specific. Anion gap [Moles/Vol] 9 mmol/L [place] AST [Catalytic activity/Vol] 19 U/L 15 - 46 U/L [place] Bilirubin Ql (U) 0.4 mg/dL 0.2 - 1.3 mg/dL [place] Calcium [Mass/Vol] 9.6 mg/dL 8.4 - 10. 4 mg/dL [place] Chloride [Moles/Vol] 105 mmol/L 98 - 10 7 mmol/L [place] CO2 [Moles/Vol] 25 mmol/L 22 - 30 mmol/L [place] Creatinine [Mass/Vol] 0.66 mg/dL 0.52 - 1.25 mg/dL [place] EGFR IF NonAfrican [place] >90.0 >60 mL/min [place] Comment on above: KDIGO guidelines pro vide the following GFR categories: Stage GFR(ml/min/1.73 m2) Terms G1 >=90 Normal or high G2 60-89 Mildly decreased* G3a 45-59 Mildly to moderately decreased G3b 30-44 Moderately to severely decreased G4 15-29 Severely decreased G5 <15 Kidney failure *Relative to young adult level. In the absence of evidence of kidney damage, neither GFR category G1 nor G2 fulfill the criteria for CKD. The CKD-EPI equation is validated in individuals 18 years of age and older. Currently the best equation for estimating glomerular filtration rate (GFR) from serum creatinine in children is the Bedside Zaman equation. It is less accurate in patients with extremes of muscle mass, restriction of dietary protein, ingestion of creatine, extra-renal metabolism of creatinine, or treatment with medications that affect renal tubular creatinine secretion. GFR/1.73 sq M predicted among blacks MDRD (S/P/Bld) [Vol rate/Area] mL/min/{1.73_m2} >60 mL/min [place], [place] Glucose [Mass/Vol] 88 mg/dL 70 - 100 mg/dL [place] Potassium [Moles/Vol] 4.6 mmol/L 3.5 - 5.1 mmol/L [place] Protein [Mass/Vol] 7.0 g/dL 6.3 - 8.2 g/dL [place] Sodium [Moles/Vol] 139 mmol/L 135 - 145 mmol/L [place] Urea nitrogen [Mass/Vol] 15 mg/dL 7 - 20 mg/dL [place] Test Performed by [facility], [facility] [address] TSH without Reflexon 020 TSH Qn 1.414 u[IU]/mL 0.465 - 4.68 u[IU]/mL [place], [place] Test Performed by [facility], [facility] [address] Vitamin B12on 01-31-2020 Cobalamin (Vitamin B12) [Mass/Vol] 279 pg/mL 239 - 931 pg/mL [place], [place] Test Performed by [facility], [facility] [address] Vitamin D 25 Hydroxyon 01-30 Interpretation and review of laboratory results Abnormal [place] Vit D, 25-Hydroxy 15 ng/mL Low 30 - 100 ng/mL [facility], [place] Comment on above: Therapy is based on measurement of Total 25-OHD with the following classification levels: Less than 20 ng/mL: Indicative of Vit D deficiency 20-30 ng/mL: Suggests Vit D insufficiency Optimal: Greater than or equal to 30 ng/mL Test performed by [employer] Competitive Immunoassay, measuring Total Vitamin D, not individual fractions. Test Performed by [facility], [address] [place], [place], [place] [address] [facility], [place] VL ARTERIAL PVR LOWER WO EXE RCISEOrdered By: Nelida Santana on 09-10-2019 [facility] -- Multilevel Lower Extremity Arterial Evaluation Report Ordering Physician: Nelida Santana D.o. Cutter Hand: Nadege Barros Interpreting Physician: Luis Aranda -- Location: [facility] -- Indications: Claudication. Patient declined exercise due to her COPD, SOB, and leg fatigue -- Conclusions 1. PADMAJA, TBI, PVR waveforms of the right leg normal at rest. 2. PADMAJA, TBI, PVR waveforms of the left leg normal at rest. -- History: Risk factors: Current tobacco use. Hypertension. No diabetes. Non-obese. Patient has pain from her hips down to her ankles continuously. Her bilateral leg pain is not dependent on walking. Patient also had a venous insufficiency test today. -- Study data: Lower extremity multilevel physiologic evaluation. Pressure measurement and pulse volume recording. Location: Vascular laboratory. Objective: Diagnostic evaluation. Procedure: A vascular evaluation was performed with the patient in the supine position. Images were obtained using a Naehas vascular ultrasound machine. -- Arterial pressure indices: + + ------+ + +Location +Pressure (REST)*+Index (REST)+ + + ------+ + +R brachial +174 + + + + ------+ + +R DP +179 +1.03 + + + ------+ + +R PT +183 +1.05 + + + ------+ + +R great toe+145 +0.83 + + + ------+ + +L brachial +167 + + + + ------+ + +L DP +183 +1.05 + + + ------+ + +L PT +192 +1.10 + + + ------+ + +L great toe+176 +1.01 + + + ------+ + Prepared and electronically signed by Luis Aranda 09/10/2019 16:51 [employer] Work Phone: Lila Dickson Incoming Cardiology Results From Param/Charan - 09/10/2019 4:51 PM EST [facility] -- Multilevel Lower Extremity Arterial Evaluation Report Ordering Physician: Nelida Santana D.o. Cutter Hand: Nadege Barros Interpreting Physician: Luis Aranda -- Location: [facility] -- Indications: Claudication. Patient declined exercise due to her COPD, SOB, and leg fatigue -- Conclusions 1. PADMAJA, TBI, PVR waveforms of the right leg normal at rest. 2. PADMAJA, TBI, PVR waveforms of the left leg normal at rest. -- History: Risk factors: Current tobacco use. Hypertension. No diabetes. Non-obese. Patient has pain from her hips down to her ankles continuously. Her bilateral leg pain is not dependent on walking. Patient also had a venous insufficiency test today. -- Study data: Lower extremity multilevel physiologic evaluation. Pressure measurement and pulse volume recording. Location: Vascular laboratory. Objective: Diagnostic evaluation. Procedure: A vascular evaluation was performed with the patient in the supine position. Images were obtained using a Naehas vascular ultrasound machine. -- Arterial pressure indices: + + ------+ + +Location +Pressure (REST)*+Index (REST)+ + + ------+ + +R brachial +174 + + + + ------+ + +R DP +179 +1.03 + + + ------+ + +R PT +183 +1.05 + + + ------+ + +R great toe+145 +0.83 + + + ------+ + +L brachial +167 + + + + ------+ + +L DP +183 +1.05 + + + ------+ + +L PT +192 +1.10 + + + ------+ + +L great toe+176 +1.01 + + + ------+ + Prepared and electronically signed by Luis Aranda 09/10/2019 16:51 [facility] Work Phone: VL VENOUS REFLUX US LOWER EX T BILATERALOrdered By: Nelida Santana on 09-10-2019 [facility] -- Bilateral Lower Extremity Venous Insufficiency Duplex Report Ordering Physician: Nelida Santana D.o. Cutter Hand: Nadege Barros Interpreting Physician: Luis Aranda -- Location: [facility] -- Indications: Venous insufficiency. Varicose veins. Pain right entire leg. Pain left entire leg. -- Conclusions 1. There is no evidence of acute deep or superficial venous thrombosis noted in the right lower extremity. 2. There is no evidence of acute deep or superficial venous thrombosis noted in the left lower extremity. 3. Reflux noted in the right small saphenous vein. 4. Reflux noted in the left small saphenous vein. -- History: Risk factors: Current tobacco use. Hypertension. No diabetes. Non-obese. -- Study data: Bilateral lower extremity venous insufficiency exam. Grayscale 2D imaging, color Doppler imaging, and spectral Doppler analysis. Location: Vascular laboratory. Objective: Diagnostic evaluation. Procedure: A vascular evaluation was performed with the patient in the supine position. Images were obtained using a ScaleIO E9 vascular ultrasound machine. -- Venous flow and imaging: + ---+-------+ -+ +Location +Overall+Properties + + ---+-------+ -+ +R CFV +Patent +Normal phasicity; spontaneous; + + + +normal augmentation; compressible + + ---+-------+ -+ +R saphenofemoral junction+Patent +Compressible + + ---+-------+ -+ +R profunda femoral +Patent +Normal phasicity; spontaneous; + + + +normal augmentation + + ---+-------+ -+ +R FV - prox. +Patent +Compressible + + ---+-------+ -+ +R FV - mid +Patent +Normal phasicity; spontaneous; + + + +normal augmentation; compressible + + ---+-------+ -+ +R FV - distal +Patent +Compressible + + ---+-------+ -+ +R popliteal +Patent +Normal phasicity; spontaneous; + + + +normal augmentation; compressible + + ---+-------+ -+ +R gastrocnemius +Patent +Compressible + + ---+-------+ -+ +R PTV +Patent +Compressible + + ---+-------+ -+ +R peroneal +Patent +Compressible + + ---+-------+ -+ +R soleol +Patent +Compressible + + ---+-------+ -+ +R GSV +Patent +Compressible + + ---+-------+ -+ +L CFV +Patent +Normal phasicity; spontaneous; + + + +normal augmentation; compressible + + ---+-------+ -+ +L saphenofemoral junction+Patent +Compressible + + ---+-------+ -+ +L profunda femoral +Patent +Normal phasicity; spontaneous; + + + +normal augmentation + + ---+-------+ -+ +L FV - prox. +Patent +Compressible + + ---+-------+ -+ +L FV - mid +Patent +Normal phasicity; spontaneous; + + + +normal augmentation; compressible + + ---+-------+ --------- (more content not included)... [facility] Work Phone: [place] Incoming Cardiology Results From Param/Charan - 09/10/2019 4:50 PM EST [facility] -- Bilateral Lower Extremity Venous Insufficiency Duplex Report Ordering Physician: Nelida Santana D.o. Cutter Hand: Nadege Barros Interpreting Physician: Luis Aranda -- Location: [facility] -- Indications: Venous insufficiency. Varicose veins. Pain right entire leg. Pain left entire leg. -- Conclusions 1. There is no evidence of acute deep or superficial venous thrombosis noted in the right lower extremity. 2. There is no evidence of acute deep or superficial venous thrombosis noted in the left lower extremity. 3. Reflux noted in the right small saphenous vein. 4. Reflux noted in the left small saphenous vein. -- History: Risk factors: Current tobacco use. Hypertension. No diabetes. Non-obese. -- Study data: Bilateral lower extremity venous insufficiency exam. Grayscale 2D imaging, color Doppler imaging, and spectral Doppler analysis. Location: Vascular laboratory. Objective: Diagnostic evaluation. Procedure: A vascular evaluation was performed with the patient in the supine position. Images were obtained using a ScaleIO E9 vascular ultrasound machine. -- Venous flow and imaging: + ---+-------+ -+ +Location +Overall+Properties + + ---+-------+ -+ +R CFV +Patent +Normal phasicity; spontaneous; + + + +normal augmentation; compressible + + ---+-------+ -+ +R saphenofemoral junction+Patent +Compressible + + ---+-------+ -+ +R profunda femoral +Patent +Normal phasicity; spontaneous; + + + +normal augmentation + + ---+-------+ -+ +R FV - prox. +Patent +Compressible + + ---+-------+ -+ +R FV - mid +Patent +Normal phasicity; spontaneous; + + + +normal augmentation; compressible + + ---+-------+ -+ +R FV - distal +Patent +Compressible + + ---+-------+ -+ +R popliteal +Patent +Normal phasicity; spontaneous; + + + +normal augmentation; compressible + + ---+-------+ -+ +R gastrocnemius +Patent +Compressible + + ---+-------+ -+ +R PTV +Patent +Compressible + + ---+-------+ -+ +R peroneal +Patent +Compressible + + ---+-------+ -+ +R soleol +Patent +Compressible + + ---+-------+ -+ +R GSV +Patent +Compressible + + ---+-------+ -+ +L CFV +Patent +Normal phasicity; spontaneous; + + + +normal augmentation; compressible + + ---+-------+ -+ +L saphenofemoral junction+Patent +Compressible + + ---+-------+ -+ +L profunda femoral +Patent +Normal phasicity; spontaneous; + + + +normal augmentation + + ---+-------+ -+ +L FV - prox. +Patent +Compressible + + ---+-------+ -+ +L FV - mid +Patent +Normal phasicity; spontaneous; + + + +normal augmentation; compressible + + ---+-------+ -+ +L FV - distal +Patent +Compressible + + ---+-------+ -+ +L popliteal +Patent +Normal phasicity; spontaneous; + + + +normal augmentation; compressible + + ---+-------+ -+ +L gastrocnemius +Patent +Compressible + + ---+-------+ -+ +L PTV +Patent +Compressible + + ---+-------+ -+ +L peroneal +Patent +Compressible + + ---+-------+ -+ +L soleol +Patent +Compressible + + (more content not included)... [employer] Work Phone: ACT,Whole Bloodon 05-10-2018 ACT,Whole Blood 258 s High 90-134 [facility] Comment on above: Result Comment: ACTB Performed by [employer] ID: [id number] [employer] [place], [place], [place] testing is not intended for patients taking aprotonin,patients with hematocrits of <20% or >55%, patients usingother types of anticoagulation medications, and patients withLupus Anticoagulant. Performed By: #### H A1C2, LIPD2, TROPN, APTT, TSH5, CKMBS, [id number] ####[place] [address] [address] [place], [place] CKMB Fractionationon 018 CK.MB mass conc 6.6 ng/mL High 0.0-2.4 [facility] Comment on above: Result Comment: Both the CKMB and the Relative Index must be abnormal forclinical significance. Performed By: #### H A1C2, LIPD2, TROPN, APTT, TSH5, CKMBS, [id number] ####[address] Relative Index 4.2 High 0.0-3.0 [facility] Comment on above: Performed By: #### H A1C2, LIPD2, TROPN, APTT, TSH5, CKMBS, [id number] ####[address] CKMB Screenon 05-10-2018 CK enzyme act/vol 158 U/L Normal 30-170 [facility] Comment on above: Performed By: #### H A1C2, LIPD2, TROPN, APTT, TSH5, CKMBS, [id number] ####[address] Comp Metabolic Panelon 05-10 ALP enzyme act/vol 78 U/L Normal 38-126 [facility] Comment on above: Performed By: #### H A1C2, LIPD2, TROPN, APTT, TSH5, CKMBS, [id number] ####[address] ALT enzyme act/vol 21 U/L Normal 13-69 [facility] Comment on above: Performed By: #### H A1C2, LIPD2, TROPN, APTT, TSH5, CKMBS, [id number] ####[place] [id number] [place], [place] Anion gap 3 molar conc 8 Normal [facility] Comment on above: Performed By: #### H A1C2, LIPD2, TROPN, APTT, TSH5, CKMBS, [id number] ####[facility] [place], [place] AST enzyme act/vol 36 U/L Normal 15-46 [facility] Comment on above: Performed By: #### H A1C2, LIPD2, TROPN, APTT, TSH5, CKMBS, [id number] ####[place] [id number] [place], [place] Calcium mass conc 8.9 mg/dL Normal 8.4-10.4 [facility] Comment on above: Performed By: #### H A1C2, LIPD2, TROPN, APTT, TSH5, CKMBS, [id number] ####[place] [id number] [place], [place] CO2 molar conc 22 mmol/L Normal 22-30 [facility] Comment on above: Performed By: #### H A1C2, LIPD2, TROPN, APTT, TSH5, CKMBS, [id number] ####[place] [place], [place] Glucose mass conc 102 mg/dL High 70-100 [facility] Comment on above: Performed By: #### H A1C2, LIPD2, TROPN, APTT, TSH5, CKMBS, [id number] ####[place] [id number] [place], [place] Protein mass conc 6.8 g/dL Normal 6.3-8.2 [facility] Comment on above: Performed By: #### H A1C2, LIPD2, TROPN, APTT, TSH5, CKMBS, [id number] ####[place] [id number] [place], [place] Urea nitrogen mass conc 13 mg/dL Normal 7-20 [facility] Comment on above: Performed By: #### H A1C2, LIPD2, TROPN, APTT, TSH5, CKMBS, [id number] ####[address] Bilirubin mass conc 0.5 mg/dL Normal 0.2-1.3 [facility] Comment on above: Performed By: #### H A1C2, LIPD2, TROPN, APTT, TSH5, CKMBS, [id number] ####[address] Creatinine mass conc 0.75 mg/dL Normal 0.52-1.25 [facility] Comment on above: Performed By: #### H A1C2, LIPD2, TROPN, APTT, TSH5, CKMBS, [id number] ####[address] GFR/1.73 sq M predicted among blacks MDRD vol rate/area (S/P/Bld) mL/min/{1.73_m2} Normal >60 [facility] [place] [facility] Comment on above: Performed By: #### H A1C2, LIPD2, TROPN, APTT, TSH5, CKMBS, [id number] ####[facility] [place] [address] GFR/1.73 sq M predicted among non-blacks MDRD vol rate/area (S/P/Bld) mL/min/{1.73_m2} Normal >60 [facility] [place] [facility] Comment on above: Result Comment: Sour ce- MDRD equation with creatinine calibration to IDMS(NKDEP) eGFR not recommended for drug dose adjustment Performed By: #### H A1C2, LIPD2, TROPN, APTT, TSH5, CKMBS, [id number] ####[address] Albumin mass conc 4.2 g/dL Normal 3.5-5.0 [facility] Comment on above: Performed By: #### H A1C2, LIPD2, TROPN, APTT, TSH5, CKMBS, [id number] ####[address] [address] [place], [place] Potassium molar conc 4.0 mmol/L Normal 3.5-5.1 [facility] Comment on above: Performed By: #### H A1C2, LIPD2, TROPN, APTT, TSH5, CKMBS, [id number] ####[place] [address] [place], [place] Sodium molar conc 141 mmol/L Normal 137-145 [facility] Comment on above: Performed By: #### H A1C2, LIPD2, TROPN, APTT, TSH5, CKMBS, [id number] ####[address] Chloride molar conc 111 mmol/L High 98-107 [facility] Comment on above: Performed By: #### H A1C2, LIPD2, TROPN, APTT, TSH5, CKMBS, [id number] ####[address] Hemogram w/ Autodiffon 05-10 Abs Baso Cnt 0.1 10*3/uL Normal 0.0-0.2 [facility] [place] [facility] Comment on above: Performed By: #### H A1C2, LIPD2, TROPN, APTT, TSH5, CKMBS, [id number] ####[address] Abs Neutrophile Cnt 5.0 10*3/uL Normal 1.8-7.0 [facility] Comment on above: Performed By: #### H A1C2, LIPD2, TROPN, APTT, TSH5, CKMBS, [id number] ####[address] Basophils/100 WBC Auto (Bld) 0.7 % Normal 0.0-2.0 [facility] Comment on above: Performed By: #### H A1C2, LIPD2, TROPN, APTT, TSH5, CKMBS, [id number] ####[address] Eosinophils Auto #/vol (Bld) 0.2 10*3/uL Normal 0.0-0.5 [facility] Comment on above: Performed By: #### H A1C2, LIPD2, TROPN, APTT, TSH5, CKMBS, [id number] ####[place] [place], [place] Eosinophils/100 WBC Auto (Bld) 2.5 % Normal 1.0-6.0 [facility] Comment on above: Performed By: #### H A1C2, LIPD2, TROPN, APTT, TSH5, CKMBS, [id number] ####[address] Erythrocyte distribution width Auto Ratio (RBC) 13.6 % Normal 11.5-14.5 [facility] Comment on above: Performed By: #### H A1C2, LIPD2, TROPN, APTT, TSH5, CKMBS, [id number] ####[address] Granulocytes/100 WBC (Bld) 64.9 % Normal 40.0-80.0 [facility] Comment on above: Performed By: #### H A1C2, LIPD2, TROPN, APTT, TSH5, CKMBS, [id number] ####[address] Hematocrit Auto Volume Fraction (Bld) 37.2 % Normal 35.0-47.0 [facility] Comment on above: Performed By: #### H A1C2, LIPD2, TROPN, APTT, TSH5, CKMBS, [id number] ####[address] Hemoglobin mass conc (Bld) 12.5 g/dL Normal 11.7-16.0 [facility] Comment on above: Performed By: #### H A1C2, LIPD2, TROPN, APTT, TSH5, CKMBS, [id number] ####[address] Lymphocytes Auto #/vol (Bld) 1.8 10*3/uL Normal 1.0-4.3 [facility] Comment on above: Performed By: #### H A1C2, LIPD2, TROPN, APTT, TSH5, CKMBS, [id number] ####[place] [address] [place], [place] Lymphocytes/100 WBC Auto (Bld) 23.3 % Normal 20.0-40.0 [facility] Comment on above: Performed By: #### H A1C2, LIPD2, TROPN, APTT, TSH5, CKMBS, [id number] ####[place] [place], [place] MCH Auto Entitic mass (RBC) 31.4 pg Normal 26.0-34.0 [facility] Comment on above: Performed By: #### H A1C2, LIPD2, TROPN, APTT, TSH5, CKMBS, [id number] ####[address] MCHC Auto mass conc (RBC) 33.7 % Normal 32.0-36.0 [facility] Comment on above: Performed By: #### H A1C2, LIPD2, TROPN, APTT, TSH5, CKMBS, [id number] ####[address] MCV Auto Entitic volume (RBC) 93.3 fL Normal 79.0-98.0 [facility] Comment on above: Performed By: #### H A1C2, LIPD2, TROPN, APTT, TSH5, CKMBS, [id number] ####[address] Monocytes Auto #/vol (Bld) 0.7 10*3/uL Normal 0.0-0.8 [facility] Comment on above: Performed By: #### H A1C2, LIPD2, TROPN, APTT, TSH5, CKMBS, [id number] ####[address] Monocytes/100 WBC Auto (Bld) 8.6 % Normal 2.0-10.0 [facility] Comment on above: Performed By: #### H A1C2, LIPD2, TROPN, APTT, TSH5, CKMBS, [id number] ####[place] [place], [place] Platelet mean volume Auto Entitic volume (Bld) 8.4 fL Normal 7.4-10.4 [facility] Comment on above: Performed By: #### H A1C2, LIPD2, TROPN, APTT, TSH5, CKMBS, [id number] ####[place] [place], [place] Platelets Auto #/vol (Bld) 266 10*3/uL Normal 140-440 [facility] Comment on above: Performed By: #### H A1C2, LIPD2, TROPN, APTT, TSH5, CKMBS, [id number] ####[address] [place], [place] RBC Auto #/vol (Bld) 3.98 10*6/uL Normal 3.80-5.20 [facility] Comment on above: Performed By: #### H A1C2, LIPD2, TROPN, APTT, TSH5, CKMBS, [id number] ####[address] [place], [place] WBC Auto #/vol (Bld) 7.7 10*3/uL Normal 3.6-10.7 [facility] Comment on above: Performed By: #### H A1C2, LIPD2, TROPN, APTT, TSH5, CKMBS, [id number] ####[address] [place] [address] Magnesiumon 05-10-2018 Magnesium mass conc 2.1 mg/dL Normal 1.6-2.3 [facility] Comment on above: Performed By: #### H A1C2, LIPD2, TROPN, APTT, TSH5, CKMBS, [id number] ####[place] [place], [place] CKMB Fractionationon 018 CK.MB mass conc 10.1 ng/mL High 0.0-2.[address] [facility] Comment on above: Result Comment: Both the CKMB and the Relative Index must be abnormal forclinical significance. Performed By: #### H A1C2, LIPD2, TROPN, APTT, TSH5, CKMBS, [id number] ####[address] Relative Index 5.0 High 0.0-3.0 [facility] Comment on above: Performed By: #### H A1C2, LIPD2, TROPN, APTT, TSH5, CKMBS, [id number] ####[address] CK.MB mass conc 21.4 ng/mL High 0.0-2.[address] [facility] Comment on above: Result Comment: Both the CKMB and the Relative Index must be abnormal forclinical significance. Performed By: #### H A1C2, LIPD2, TROPN, APTT, TSH5, CKMBS, [id number] ####[address] Relative Index 8.0 High 0.0-3.0 [facility] Comment on above: Performed By: #### H A1C2, LIPD2, TROPN, APTT, TSH5, CKMBS, [id number] ####[address] CK.MB mass conc 19.1 ng/mL High 0.0-2.[address] [facility] Comment on above: Result Comment: Both the CKMB and the Relative Index must be abnormal forclinical significance. Performed By: #### H A1C2, LIPD2, TROPN, APTT, TSH5, CKMBS, [id number] ####[address] Relative Index 8.3 High 0.0-3.0 [facility] Comment on above: Performed By: #### H A1C2, LIPD2, TROPN, APTT, TSH5, CKMBS, [id number] ####[address] [address] [place] [address] CKMB Screenon 05-09-2018 CK enzyme act/vol 201 U/L High 30-170 [facility] Comment on above: Performed By: #### H A1C2, LIPD2, TROPN, APTT, TSH5, CKMBS, [id number] ####[address] [address] [place] [address] CK enzyme act/vol 268 U/L High 30-170 [facility] Comment on above: Performed By: #### H A1C2, LIPD2, TROPN, APTT, TSH5, CKMBS, [id number] ####[address] [place], [place] CK enzyme act/vol 230 U/L High 30-170 [facility] Comment on above: Performed By: #### H A1C2, LIPD2, TROPN, APTT, TSH5, CKMBS, [id number] ####[place] [address] [address] [place], [place] Comp Metabolic Panelon 05-09 Calcium mass conc 9.1 mg/dL Normal 8.4-10.4 [facility] Comment on above: Performed By: #### H A1C2, LIPD2, TROPN, APTT, TSH5, CKMBS, [id number] ####[address] [place], [place] ALP enzyme act/vol 71 U/L Normal 38-126 [facility] Comment on above: Performed By: #### H A1C2, LIPD2, TROPN, APTT, TSH5, CKMBS, [id number] ####[address] [place], [place] ALT enzyme act/vol 26 U/L Normal 13-69 [facility] Comment on above: Performed By: #### H A1C2, LIPD2, TROPN, APTT, TSH5, CKMBS, [id number] ####[address] [place], [place] Anion gap 3 molar conc 8 Normal [facility] Comment on above: Performed By: #### H A1C2, LIPD2, TROPN, APTT, TSH5, CKMBS, [id number] ####[address] [place], [place] AST enzyme act/vol 42 U/L Normal 15-46 [facility] Comment on above: Performed By: #### H A1C2, LIPD2, TROPN, APTT, TSH5, CKMBS, [id number] ####[address] [place], [place] Bilirubin mass conc 0.4 mg/dL Normal 0.2-1.3 [facility] Comment on above: Performed By: #### H A1C2, LIPD2, TROPN, APTT, TSH5, CKMBS, [id number] ####[address] [address] [place], [place] CO2 molar conc 23 mmol/L Normal 22-30 [facility] Comment on above: Performed By: #### H A1C2, LIPD2, TROPN, APTT, TSH5, CKMBS, [id number] ####[address] [place], [place] Glucose mass conc 111 mg/dL High 70-100 [facility] Comment on above: Performed By: #### H A1C2, LIPD2, TROPN, APTT, TSH5, CKMBS, [id number] ####[address] [place], [place] Protein mass conc 6.3 g/dL Normal 6.3-8.2 [facility] Comment on above: Performed By: #### H A1C2, LIPD2, TROPN, APTT, TSH5, CKMBS, [id number] ####[address] [place], [place] Urea nitrogen mass conc 11 mg/dL Normal 7-20 [facility] Comment on above: Performed By: #### H A1C2, LIPD2, TROPN, APTT, TSH5, CKMBS, [id number] ####[address] [place] [address] Creatinine mass conc 0.74 mg/dL Normal 0.52-1.25 [facility] Comment on above: Performed By: #### H A1C2, LIPD2, TROPN, APTT, TSH5, CKMBS, [id number] ####[address] [place], [place] GFR/1.73 sq M predicted among blacks MDRD vol rate/area (S/P/Bld) mL/min/{1.73_m2} Normal >60 [facility] Comment on above: Performed By: #### H A1C2, LIPD2, TROPN, APTT, TSH5, CKMBS, [id number] ####[address] GFR/1.73 sq M predicted among non-blacks MDRD vol rate/area (S/P/Bld) mL/min/{1.73_m2} Normal >60 [facility] Comment on above: Result Comment: Sour ce- MDRD equation with creatinine calibration to IDMS(NKDEP) eGFR not recommended for drug dose adjustment Performed By: #### H A1C2, LIPD2, TROPN, APTT, TSH5, CKMBS, [id number] ####[address] Potassium molar conc 4.0 mmol/L Normal 3.5-5.1 [facility] Comment on above: Performed By: #### H A1C2, LIPD2, TROPN, APTT, TSH5, CKMBS, [id number] ####[address] [place], [place] Albumin mass conc 3.9 g/dL Normal 3.5-5.0 [facility] Comment on above: Performed By: #### H A1C2, LIPD2, TROPN, APTT, TSH5, CKMBS, [id number] ####[address] [place] [address] Chloride molar conc 108 mmol/L High 98-107 [facility] Comment on above: Performed By: #### H A1C2, LIPD2, TROPN, APTT, TSH5, CKMBS, [id number] ####[facility], [place] Sodium molar conc 139 mmol/L Normal 137-145 [facility] Comment on above: Performed By: #### H A1C2, LIPD2, TROPN, APTT, TSH5, CKMBS, [id number] ####[address] [facility] [address] Drugs of Abuseon 05-09-2018 Phencyclidine (PCP), Ur Negative Normal [facility] Comment on above: Result Comment: The expected value for all of the drugs listedabove is Negative.The following drugs or drug groups have been screenedfor by Immunoassay at the following thresholds:Amphetamine class (1000 ng/mL), Barbiturates (200 ng/mL),Benzodiazepines (200 ng/mL), Cocaine (300 ng/mL),Methadone (300 ng/mL), Opiates (300 ng/mL),Oxycodone (100 ng/mL), and PCP (25 ng/mL).NOTE: These results are for medical treatment only.Analysis performed using non-forensic procedures. Performed By: #### D RGA4 ####[address] Methadone, Ur Negative Normal [facility] Comment on above: Performed By: #### D RGA4 ####[address] [facility] [address] Opiates, Ur Positive Normal [facility] Comment on above: Performed By: #### D RGA4 ####[address] [facility] [address] Cocaine, Ur Negative Normal [facility] Comment on above: Performed By: #### D RGA4 ####[facility] [place] [address] Amphetamines, Ur Negative Normal [facility] Comment on above: Performed By: #### D RGA4 ####[facility] [address] [place] [address] Barbiturates, Ur Negative Normal [facility] Comment on above: Performed By: #### D RGA4 ####[facility] [address] [place] [address] Benzodiazepines, Ur Positive Normal [facility] Comment on above: Performed By: #### D RGA4 ####[facility] [address] [place] [address] Oxycodone/Oxymorphin e,Ur Negative Normal [facility] Comment on above: Performed By: #### D RGA4 ####[facility] [id number] [place], [place] Echo Complete w/wo Contrasto n 05-09-2018 Echo Complete w/wo Contrast Patient Name: JONATHAN MOISE Ultrasound Exam Date/Time 05/09/2018 10:59:39 EDT Exam Echo Complete w/wo Contrast Ordering Physician ANDREA VALADEZ Accession Number [id number] Reason For Exam STEMI Report TRANSTHORACIC ECHOCARDIOGRAM PATIENT: Jonathan Moise STUDY DATE: 05/09/2018 : 1950 AGE: 67 HT/WT: 167.6 cm (66 70.3 kg (154.7 in) lb) GENDER: F BP: 144 / 72 LOCATION: [facility] PATIENT Inpatient [facility] STATUS: *ORDERING PHYSICIAN: * Andrea Valadez *READING PHYSICIAN: * Casey *PERFORATOR LOADER: * Thais Bell MD RDMS,AB,RDCS,AE, PE, RVT,VT ------ --- INDICATIONS: STEMI. ------ --- CONCLUSIONS SUMMARY: 1. Left ventricle: Systolic [...] regurgitation. 6. Pulmonic valve: Structurally normal valve. ------ --- STUDY DATA: Complete transthoracic echocardiogram. Procedure: Image quality was poor. Intravenous imaging enhancement (Definity) was administered to opacify the chamber. Definity lot #: [id number]. M-mode, complete 2D, complete spectral Doppler, and color flow Doppler images were acquired and archived for permanent storage and are available for subsequent review. Study status: Routine. Patient status: Inpatient. ------ --- FINDINGS LEFT VENTRICLE: Average LV Global [...] collapses by greater than 50% with inspiration. ------ --- Measurements Left ventricle Value Reference Longitudinal [...] 2.0 - 3.5 Legend: (L) and (H) alexandro values outside specified reference range. Electronically signed by Casey Bell MD 05/09/2018 13:27 Final Dictated: 05/09/2018 1:27 pm Dictating Physician: CASEY BELL Signed Date and Time: 05/09/2018 1:27 pm Signed by: CASEY BELL Normal [facility] Hemogram w/ Autodiffon 05-09 Abs Baso Cnt 0.1 10*3/uL Normal 0.0-0.2 [facility] Comment on above: Performed By: #### H EMDF, CKMBS, CMP3, MG3, TROPN, [id number] ####[facility] [address] [place] [address] Abs Neutrophile Cnt 6.4 10*3/uL Normal 1.8-7.0 [facility] Comment on above: Performed By: #### H EMDF, CKMBS, CMP3, MG3, TROPN, [id number] ####[facility] [address] [place] [address] Basophils/100 WBC Auto (Bld) 0.9 % Normal 0.0-2.0 [facility] Comment on above: Performed By: #### H EMDF, CKMBS, CMP3, MG3, TROPN, [id number] ####[address] [place] [address] Eosinophils Auto #/vol (Bld) 0.2 10*3/uL Normal 0.0-0.5 [facility] Comment on above: Performed By: #### H EMDF, CKMBS, CMP3, MG3, TROPN, [id number] ####[address] [place], [place] Eosinophils/100 WBC Auto (Bld) 1.8 % Normal 1.0-6.0 [facility] Comment on above: Performed By: #### H EMDF, CKMBS, CMP3, MG3, TROPN, [id number] ####[address] [place], [place] Erythrocyte distribution width Auto Ratio (RBC) 13.7 % Normal 11.5-14.5 [facility] Comment on above: Performed By: #### H EMDF, CKMBS, CMP3, MG3, TROPN, [id number] ####[address] [place], [place] Granulocytes/100 WBC (Bld) 72.8 % Normal 40.0-80.0 [facility] Comment on above: Performed By: #### H EMDF, CKMBS, CMP3, MG3, TROPN, [id number] ####[address] [place], [place] Hematocrit Auto Volume Fraction (Bld) 37.5 % Normal 35.0-47.0 [facility] Comment on above: Performed By: #### H EMDF, CKMBS, CMP3, MG3, TROPN, [id number] ####[address] [place], [place] Hemoglobin mass conc (Bld) 12.6 g/dL Normal 11.7-16.0 [facility] Comment on above: Performed By: #### H EMDF, CKMBS, CMP3, MG3, TROPN, [id number] ####[address] [place], [place] Lymphocytes Auto #/vol (Bld) 1.5 10*3/uL Normal 1.0-4.3 [facility] Comment on above: Performed By: #### H EMDF, CKMBS, CMP3, MG3, TROPN, [id number] ####[address] [address] [place], [place] Lymphocytes/100 WBC Auto (Bld) 17.4 % Low 20.0-40.0 [facility] Comment on above: Performed By: #### H EMDF, CKMBS, CMP3, MG3, TROPN, [id number] ####[address] [place], [place] MCH Auto Entitic mass (RBC) 31.3 pg Normal 26.0-34.0 [facility] Comment on above: Performed By: #### H EMDF, CKMBS, CMP3, MG3, TROPN, MBF33 ####[address] MCHC Auto mass conc (RBC) 33.5 % Normal 32.0-36.0 [facility] Comment on above: Performed By: #### H EMDF, CKMBS, CMP3, MG3, TROPN, MBF33 ####[address] MCV Auto Entitic volume (RBC) 93.5 fL Normal 79.0-98.0 [facility] Comment on above: Performed By: #### H EMDF, CKMBS, CMP3, MG3, TROPN, MBF33 ####[address] Monocytes Auto #/vol (Bld) 0.6 10*3/uL Normal 0.0-0.8 [facility] Comment on above: Performed By: #### H EMDF, CKMBS, CMP3, MG3, TROPN, [id number] ####[address] Monocytes/100 WBC Auto (Bld) 7.1 % Normal 2.0-10.0 [facility] Comment on above: Performed By: #### H EMDF, CKMBS, CMP3, MG3, TROPN, [id number] ####[address] Platelet mean volume Auto Entitic volume (Bld) 8.5 fL Normal 7.4-10.4 [facility] Comment on above: Performed By: #### H EMDF, CKMBS, CMP3, MG3, TROPN, [id number] ####[address] [place], [place] Platelets Auto #/vol (Bld) 267 10*3/uL Normal 140-440 [facility] Comment on above: Performed By: #### H EMDF, CKMBS, CMP3, MG3, TROPN, MBF33 ####[address] RBC Auto #/vol (Bld) 4.01 10*6/uL Normal 3.80-5.20 [facility] Comment on above: Performed By: #### H EMDF, CKMBS, CMP3, MG3, TROPN, [id number] ####[address] WBC Auto #/vol (Bld) 8.9 10*3/uL Normal 3.6-10.7 [facility] Comment on above: Performed By: #### H EMDF, CKMBS, CMP3, MG3, TROPN, [id number] ####[address] Magnesiumon 05-09-2018 Magnesium mass conc 2.0 mg/dL Normal 1.6-2.3 [facility] Comment on above: Performed By: #### H A1C2, LIPD2, TROPN, APTT, TSH5, CKMBS, [id number] ####[address] [place], [place] Troponin Ion 05-09-2018 Troponin I.cardiac mass conc 11.700 ng/mL High 0.000-0.034 [facility] Comment on above: Result Comment: 0.04 6 - 0.400 = Indeterminate> 0.400 = Consider Myocardial Injury Performed By: #### H A1C2, LIPD2, TROPN, APTT, TSH5, CKMBS, [id number] ####[address] [place], [place] APTTon 05-08-2018 aPTT Coag time (Bld) 119.9 s High 20.0-30.5 [facility] Comment on above: Result Comment: NOTE : The therapeutic time for Heparin anticoagulation,based on Xa activity inhibition, is an APTT of 46-80seconds. Performed By: #### H A1C2, LIPD2, TROPN, APTT, TSH5, CKMBS, [id number] ####[address] [place], [place] CKMB Fractionationon 018 CK.MB mass conc 6.2 ng/mL High 0.0-2.4 [facility] Comment on above: Result Comment: Both the CKMB and the Relative Index must be abnormal forclinical significance. Performed By: #### H A1C2, LIPD2, TROPN, APTT, TSH5, CKMBS, [id number] ####[address] Relative Index 6.4 High 0.0-3.0 [facility] Comment on above: Performed By: #### H A1C2, LIPD2, TROPN, APTT, TSH5, CKMBS, MBF33 ####[address] CKMB Screenon 05-08-2018 CK enzyme act/vol 97 U/L Normal 30-170 [facility] Comment on above: Performed By: #### H A1C2, LIPD2, TROPN, APTT, TSH5, CKMBS, [id number] ####[address] CR Chest Portableon 05-08-20 18 CR Chest Portable Patient Name: JONATHAN MOISE Diagnostic Radiology Exam Date/Time 05/08/2018 15:45:00 EDT Exam CR Chest Portable Ordering Physician MD ANUPAMA, [facility] Accession Number [id number] CPT4 Codes 91192 () Reason For Exam epigastric pain Report EXAM TYPE: RADIOLOGIC EXAMINATION, CHEST, SINGLE VIEW FRONTAL (CXR SINGLE VIEW) EXAM DATE AND TIME: 05/08/2018 3:45 PM EDT INDICATION: Epigastric pain COMPARISON: 06/17/2016 TECHNIQUE: A single frontal view of the thorax was obtained and reviewed. Special views: None. IMPRESSION: 1. Lines/Tubes/Devices/Girish dware: Monitoring leads.. (Please confirm function of any [...] JOHN Transcribed Date and Time: 05/08/2018 4:09 Normal [facility] Diagnostic Catherizationon 0 05-08-2018 Diagnostic Catherization Patient Name: JONATHAN MOISE [facility] [employer] Exam Date/Time 05/08/2018 16:18:34 EDT Exam Diagnostic Catherization Ordering Physician MD LEVY PETER Accession Number [id number] Reason For Exam ST elevation (STEMI) myocardial infarction involving other coronary artery of inferior wall Report [facility] [place] ------ --- CARDIAC CATHETERIZATION Patient: Jonathan Moise Procedure Date: 05/08/2018 : 1950 Age: 67 Gender: F Patient Type: Outpatient Procedure physician: Tariq Levy MD Fellow: Referring Physician: Tariq Levy MD ------ --- INDICATIONS: ST elevated myocardial infarction. ------ --- Procedures performed: - Left coronary angiography. - Right coronary angiography. - Left heart catheterization. - Percutaneous intervention on the 100% stenosis in the proximal right coronary. Balloon angioplasty. Interventional IVUS examination. Stent placement. Balloon angioplasty. ------ --- SUMMARY: 1. 67y/o female without prior [...] critical. 6. Echo to assess LV function. ------ --- HISTORY: PMH: Chronic lung disease. Risk factors: Current tobacco use. Hypertension. Allergies: OTHER allergy. ------ --- PROCEDURE IN DETAIL: Study status: Cardiac [...] artery access. A 6Fr x 11cm Prelude [place] sheath was advanced into the vessel. 5. [...] 5. Intravascular ultrasound evaluation, using a .014 [place] [facility] [place] catheter. 6. Stent placement. A 3 mm [...] 1. ISOVUE 300MG/CC 106 ml (total dose). ------ --- CORONARY ARTERIES: The coronary circulation is [...] VALVE: There is no stenosis. HEMODYNAMICS: + ---+ --+ !Stage description !Condition1:Room Air -! + ---+ --+ !LV pressure s/ed !165/12 ! + ---+ --+ !Arterial pressure s/d (m)!85/42 (62) ! + ---+ --+ Prepared and electronically signed by Tariq Levy MD 05/09/2018 06:58 Final Dictated: 05/09/2018 6:58 am Dictating Physician: MD LEVY PETER Signed Date and Time: 05/09/2018 6:58 am Signed by: MD LEVY PETER Normal [facility] Hemoglobin A1Con 05-08-2018 Glucose mass conc 111 mg/dL Normal [email or web address] Comment on above: Performed By: #### H A1C2, LIPD2, TROPN, APTT, TSH5, CKMBS, [id number] ####[facility] [address] [place] [address] Hemoglobin A1c/Hemoglobin.total mass fraction (Bld) 5.5 % Normal 4.0-5.7 [facility] Comment on above: Result Comment: --Hg bA1C levels may not be accurate in patients who haverenal disease, received recent blood transfusions, are anemic,or who have dyshemoglobinemia. Performed By: #### H A1C2, LIPD2, TROPN, APTT, TSH5, CKMBS, [id number] ####[address] [place] [address] Lipid Panelon 05-08-2018 Cholesterol in HDL mass conc 37 mg/dL Low 40-60 [facility] Comment on above: Performed By: #### H A1C2, LIPD2, TROPN, APTT, TSH5, CKMBS, [id number] ####[address] [place], [place] Cholesterol.total/Ch olesterol in HDL mass ratio 5 Normal [facility] Comment on above: Result Comment: Ref Range:< 3 Low Risk for CHD3-6 Mod Risk for CHD> 6 High Risk for CHD Performed By: #### H A1C2, LIPD2, TROPN, APTT, TSH5, CKMBS, [id number] ####[address] [place], [place] Protein mass conc 117 mg/dL Abnormal <100 [facility] Comment on above: Performed By: #### H A1C2, LIPD2, TROPN, APTT, TSH5, CKMBS, MBF33 ####[address] [place], [place] Triglyceride mass conc 65 mg/dL Normal <150 [facility] Comment on above: Performed By: #### H A1C2, LIPD2, TROPN, APTT, TSH5, CKMBS, MBF33 ####[address] [place], [place] Cholesterol mass conc 167 mg/dL Normal < 200 [facility] Comment on above: Performed By: #### H A1C2, LIPD2, TROPN, APTT, TSH5, CKMBS, MBF33 ####[facility] [id number] [place] [address] Thyroid Stim. Hormoneon 04-15 Thyroid Stim. Hormone 0.982 u[IU]/mL Normal 0.465-4.680 [facility] Comment on above: Performed By: #### H A1C2, LIPD2, TROPN, APTT, TSH5, CKMBS, MBF33 ####[facility] [address] [place] [address] Troponin Ion 05-08-2018 Troponin I.cardiac mass conc 1.100 ng/mL High 0.000-0.034 [facility] Comment on above: Result Comment: 0.04 6 - 0.400 = Indeterminate> 0.400 = Consider Myocardial Injury Performed By: #### H A1C2, LIPD2, TROPN, APTT, TSH5, CKMBS, [id number] ####[facility] [address] [place] [address] ECG B/O W INTERP (MED OFFICE ) [facility] Vital Signs Date Time Vital Sign Value Performing Clinician Facility 06-23-2025 17:46-0400 Body height 167.6 cm Alexandro Neville MD Work Phone: [facility] 06-23-2025 17:46-0400 Body mass index (BMI) [Ratio] 20.18 kg/m2 Alexandro Neville MD Work Phone: [facility] 06-23-2025 17:46-0400 Body temperature 97.5 [degF] Alexandro Neville MD Work Phone: [facility] 06-23-2025 17:46-0400 Body weight 56.7 kg Alexandro Neville MD Work Phone: [facility] 06-23-2025 17:46-0400 Diastolic blood pressure 102 mm[Hg] Alexandro Neville MD Work Phone: [facility] 06-23-2025 17:46-0400 Heart rate 108 /min Alexandro Neville MD Work Phone: [facility] 06-23-2025 17:46-0400 Respiratory rate 16 /min Alexandro Neville MD Work Phone: [facility] 06-23-2025 17:46-0400 SaO2% (BldA) [Mass fraction] 95 % Alexandro Neville MD Work Phone: [facility] 06-23-2025 17:46-0400 Systolic blood pressure 192 mm[Hg] Alexandro Neville MD Work Phone: [facility] 01-25-2025 13:41-0400 Diastolic blood pressure 61 mm[Hg] Adarsh Duggan MD Work Phone: [facility] 01-25-2025 13:41-0400 Heart rate 82 /min Adarsh Duggan MD Work Phone: [facility] 01-25-2025 13:41-0400 Systolic blood pressure 103 mm[Hg] Adarsh Duggan MD Work Phone: [facility] 01-25-2025 13:20-0400 Body height 167.6 cm Adarsh Duggan MD Work Phone: [facility] 01-25-2025 13:20-0400 Body mass index (BMI) [Ratio] 20.24 kg/m2 Adarsh Duggan MD Work Phone: [facility] 01-25-2025 13:20-0400 Body weight 56.88 kg Adarsh Duggan MD Work Phone: [facility] 01-25-2025 13:20-0400 SaO2% (BldA) [Mass fraction] 94 % Adarsh Duggan MD Work Phone: [facility] 07-26-2024 13:32-0500 Body height 167.6 cm Adarsh Duggan MD Work Phone: [facility] 07-26-2024 13:32-0500 Body mass index (BMI) [Ratio] 20.76 kg/m2 Adarsh Duggan MD Work Phone: [facility] 07-26-2024 13:32-0500 Body weight 58.33 kg Adarsh Duggan MD Work Phone: [facility] 07-26-2024 13:32-0500 Diastolic blood pressure 75 mm[Hg] Adarsh Duggan MD Work Phone: [facility] 07-26-2024 13:32-0500 Heart rate 85 /min Adarsh Duggan MD Work Phone: [facility] 07-26-2024 13:32-0500 SaO2% (BldA) [Mass fraction] 96 % Adarsh Duggan MD Work Phone: [facility] 07-26-2024 13:32-0500 Systolic blood pressure 95 mm[Hg] Adarsh Duggan MD Work Phone: [facility] 12-23-2023 14:02-0400 Body mass index (BMI) [Ratio] 21.63 kg/m2 Deana Bridenthal HIGH REACH OPERATOR - MANAGER BUSINESS [employer]ING Work Phone: [facility] 12-23-2023 14:02-0400 Body temperature 96.91 [degF] Deana Bridenthal HIGH REACH OPERATOR - MANAGER [employer] Work Phone: [facility] 12-23-2023 14:02-0400 Body weight 60.78 kg Deana Bridenthal HIGH REACH OPERATOR - MANAGER [employer] Work Phone: [facility] 12-23-2023 14:02-0400 Diastolic blood pressure 70 mm[Hg] Deana Bridenthal HIGH REACH OPERATOR - MANAGER [employer] Work Phone: [facility] 12-23-2023 14:02-0400 Heart rate 80 /min Deana Bridenthal HIGH REACH OPERATOR - MANAGER [employer] Work Phone: [facility] 12-23-2023 14:02-0400 Respiratory rate 20 /min Deana Bridenthal HIGH REACH OPERATOR - MANAGER [employer] Work Phone: [facility] 12-23-2023 14:02-0400 SaO2% (BldA) [Mass fraction] 94 % Deana Bridenthal HIGH REACH OPERATOR - MANAGER [employer] Work Phone: [facility] 12-23-2023 14:02-0400 Systolic blood pressure 166 mm[Hg] Deana Bridmadonnaham HIGH REACH OPERATOR - MANAGER [employer] Work Phone: [facility] 07-21-2023 14:43-0500 Diastolic blood pressure 73 mm[Hg] Adarsh Duggan MD Work Phone: [facility] 07-21-2023 14:43-0500 Heart rate 67 /min Adarsh Duggan MD Work Phone: [facility] 07-21-2023 14:43-0500 Systolic blood pressure 151 mm[Hg] Adarsh Duggan MD Work Phone: [facility] 07-21-2023 14:11-0500 Body height 167.6 cm Adarsh Duggan MD Work Phone: [facility] 07-21-2023 14:11-0500 Body mass index (BMI) [Ratio] 21.79 kg/m2 Adarsh Duggan MD Work Phone: [facility] 07-21-2023 14:11-0500 Body weight 61.24 kg Adarsh Duggan MD Work Phone: [facility] 07-21-2023 14:11-0500 SaO2% (BldA) [Mass fraction] 95 % Adarsh Duggan MD Work Phone: [facility] 05-25-2023 13:41-0400 Body height 167.6 cm Taylor Ruby HIGH REACH OPERATOR - [employer]GER [employer] Work Phone: [facility] 05-25-2023 13:41-0400 Body mass index (BMI) [Ratio] 21.95 kg/m2 Taylor Ruby HIGH REACH OPERATOR - MA[employer]GER [employer] Work Phone: [facility] 05-25-2023 13:41-0400 Body temperature 98.2 [degF] Taylor Ruby HIGH REACH OPERATOR - [employer]GER [employer] Work Phone: [facility] 05-25-2023 13:41-0400 Body weight 61.69 kg Taylor Ruby HIGH REACH OPERATOR - MA[employer]GER [employer] Work Phone: [facility] 05-25-2023 13:41-0400 Diastolic blood pressure 74 mm[Hg] Taylor Tung HIGH REACH OPERATOR - MA[employer]GER [employer] Work Phone: [facility] 05-25-2023 13:41-0400 Heart rate 76 /min Taylor Ruby HIGH REACH OPERATOR - MA[employer]GER [employer] Work Phone: [facility] 05-25-2023 13:41-0400 SaO2% (BldA) [Mass fraction] 98 % Taylor Ruby HIGH REACH OPERATOR - MANAGER [employer] Work Phone: [facility] 05-25-2023 13:41-0400 Systolic blood pressure 136 mm[Hg] Taylor Ruby HIGH REACH OPERATOR - [employer] Work Phone: [facility] 01-24-2023 16:38-0400 Diastolic blood pressure 84 mm[Hg] Temo Hicks MD Work Phone: [facility] 01-24-2023 16:38-0400 Heart rate 82 /min Temo Hicks MD Work Phone: [facility] 01-24-2023 16:38-0400 Respiratory rate 16 /min Temo Hicks MD Work Phone: [facility] 01-24-2023 16:38-0400 SaO2% (BldA) [Mass fraction] 99 % Temo Hicks MD Work Phone: [facility] 01-24-2023 16:38-0400 Systolic blood pressure 162 mm[Hg] Temo Hicks MD Work Phone: [facility] 01-24-2023 15:24-0400 Body height 167.6 cm Temo Hicks MD Work Phone: [facility] 01-24-2023 15:24-0400 Body mass index (BMI) [Ratio] 23.89 kg/m2 Temo Hicks MD Work Phone: [facility] 01-24-2023 15:24-0400 Body temperature 98.91 [degF] Temo Hicks MD Work Phone: [facility] 01-24-2023 15:24-0400 Body weight 67.13 kg Temo Hicks MD Work Phone: [facility] 05-29-2022 19:25-0400 Diastolic blood pressure 76 mm[Hg] Dr. Adarsh Duggan Work Phone: [facility] Work Phone: 05-29-2022 19:25-0400 Heart rate 72 /min Dr. Adarsh Duggan Work Phone: [facility] Work Phone: 05-29-2022 19:25-0400 Respiratory rate 16 /min Dr. Adarsh Duggan Work Phone: [facility] Work Phone: 05-29-2022 19:25-0400 SaO2% (BldA) [Mass fraction] 97 % Dr. Adarsh Duggan Work Phone: [facility] Work Phone: 05-29-2022 19:25-0400 Systolic blood pressure 113 mm[Hg] Dr. Adarsh Duggan Work Phone: [facility] Work Phone: 05-29-2022 16:55-0400 Body height 177.[address] Adarsh Duggan Work Phone: [facility] Work Phone: 05-29-2022 16:55-0400 Body mass index (BMI) [Ratio] 19.3 kg/m2 Dr. Adarsh Duggan Work Phone: [facility] Work Phone: 05-29-2022 16:55-0400 Body temperature 97.6 [degF] Dr. Adarsh Duggan Work Phone: [facility] Work Phone: 05-29-2022 16:55-0400 Body weight 61.[address] Adarsh Duggan Work Phone: [facility] Work Phone: 05-28-2022 17:11-0400 Body height 177.8 cm [employer] DO Work Phone: [facility] 05-28-2022 17:11-0400 Body mass index (BMI) [Ratio] 18.65 kg/m2 Berenice [employer] DO Work Phone: [facility] 05-28-2022 17:11-0400 Body temperature 98.71 [degF] Berenice [employer] DO Work Phone: [facility] 05-28-2022 17:11-0400 Body weight 58.97 kg Berenice [employer] DO Work Phone: [facility] 05-28-2022 17:11-0400 Diastolic blood pressure 87 mm[Hg] Berenice [employer] DO Work Phone: [facility] 05-28-2022 17:11-0400 Heart rate 92 /min Berenice [employer] DO Work Phone: [facility] 05-28-2022 17:11-0400 Respiratory rate 14 /min [employer] DO Work Phone: [facility] 05-28-2022 17:11-0400 SaO2% (BldA) [Mass fraction] 97 % [employer] DO Work Phone: [facility] 05-28-2022 17:11-0400 Systolic blood pressure 147 mm[Hg] Berenice [employer] DO Work Phone: [facility] 05-25-2022 11:06-0400 Respiratory rate 18 /min Dr. Adarsh Duggan Work Phone: [facility] Work Phone: 05-25-2022 10:58-0400 Body height 177.[address] Adarsh Duggan Work Phone: [facility] Work Phone: 05-25-2022 10:58-0400 Body mass index (BMI) [Ratio] 21.2 kg/m2 Dr. Adarsh Duggan Work Phone: [facility] Work Phone: 05-25-2022 10:58-0400 Body temperature 98.6 [degF] Dr. Adarsh Duggan Work Phone: [facility] Work Phone: 05-25-2022 10:58-0400 Body weight 67.[address] Adarsh Duggan Work Phone: [facility] Work Phone: 05-25-2022 10:58-0400 Diastolic blood pressure 89 mm[Hg] Dr. Adarsh Duggan Work Phone: [facility] Work Phone: 05-25-2022 10:58-0400 Heart rate 69 /min Dr. Adarsh Duggan Work Phone: [facility] Work Phone: 05-25-2022 10:58-0400 SaO2% (BldA) [Mass fraction] 96 % Dr. Adarsh Duggan Work Phone: [facility] Work Phone: 05-25-2022 10:58-0400 Systolic blood pressure 172 mm[Hg] Dr. Adarsh Duggan Work Phone: [facility] Work Phone: 05-24-2022 18:00-0400 Diastolic blood pressure 85 mm[Hg] Brayan Bergman MD Work Phone: [facility] 05-24-2022 18:00-0400 Heart rate 79 /min Brayan Bergman MD Work Phone: [facility] 05-24-2022 18:00-0400 Respiratory rate 14 /min Brayan Bergman MD Work Phone: [facility] 05-24-2022 18:00-0400 SaO2% (BldA) [Mass fraction] 100 % Brayan Bergman MD Work Phone: [facility] 05-24-2022 18:00-0400 Systolic blood pressure 146 mm[Hg] Brayan Bergman MD Work Phone: [facility] 05-24-2022 15:57-0400 Body temperature 98.01 [degF] Brayan Bergman MD Work Phone: [facility] 02-07-2022 11:17-0400 Diastolic blood pressure 73 mm[Hg] Dr. Adarsh Duggan Work Phone: [facility] Work Phone: 02-07-2022 11:17-0400 Heart rate 64 /min Dr. Adarsh Duggan Work Phone: [facility] Work Phone: 02-07-2022 11:17-0400 Respiratory rate 17 /min Dr. Adarsh Duggan Work Phone: [facility] Work Phone: 02-07-2022 11:17-0400 SaO2% (BldA) [Mass fraction] 94 % Dr. Adarsh Duggan Work Phone: [facility] Work Phone: 02-07-2022 11:17-0400 Systolic blood pressure 139 mm[Hg] Dr. Adarsh Duggan Work Phone: [facility] Work Phone: 02-07-2022 10:32-0400 Body weight 67.[address] Adarsh Duggan Work Phone: [facility] Work Phone: 02-07-2022 08:00-0400 Body temperature 97.7 [degF] Dr. Adarsh Duggan Work Phone: [facility] Work Phone: 02-06-2022 21:28-0400 Body mass index (BMI) [Ratio] 24.7 kg/m2 Dr. Adarsh Duggan Work Phone: [facility] Work Phone: 01-21-2022 10:14-0400 Body height 170.2 cm Caryn Wood MD Work Phone: [facility] 01-21-2022 10:14-0400 Body weight 65.77 kg Caryn Wood MD Work Phone: [facility] 01-21-2022 10:14-0400 Diastolic blood pressure 72 mm[Hg] Caryn Wood MD Work Phone: [facility] 01-21-2022 10:14-0400 Heart rate 52 /min Caryn Wood MD Work Phone: [facility] 01-21-2022 10:14-0400 Respiratory rate 18 /min Caryn Wood MD Work Phone: [facility] 01-21-2022 10:14-0400 SaO2% (BldA) [Mass fraction] 96 % Caryn Wood MD Work Phone: [facility] 01-21-2022 10:14-0400 Systolic blood pressure 142 mm[Hg] Caryn Wood MD Work Phone: [facility] 12-19-2021 11:24-0400 Body height 167.[address] Adarsh Duggan Work Phone: [facility] Work Phone: 12-19-2021 11:24-0400 Body weight 67.[address] Adarsh Duggan Work Phone: [facility] Work Phone: 12-19-2021 08:25-0400 Diastolic blood pressure 68 mm[Hg] Dr. Adarsh Duggan Work Phone: [facility] Work Phone: 12-19-2021 08:25-0400 Heart rate 60 /min Dr. Adarsh Duggan Work Phone: [facility] Work Phone: 12-19-2021 08:25-0400 Systolic blood pressure 136 mm[Hg] Dr. Adarsh Duggan Work Phone: [facility] Work Phone: 12-19-2021 08:22-0400 Body temperature 98.3 [degF] Dr. Adarsh Duggan Work Phone: [facility] Work Phone: 12-19-2021 08:22-0400 Respiratory rate 15 /min Dr. Adarsh Duggan Work Phone: [facility] Work Phone: 12-19-2021 08:22-0400 SaO2% (BldA) [Mass fraction] 97 % Dr. Adarsh Duggan Work Phone: [facility] Work Phone: 12-18-2021 17:09-0400 Body mass index (BMI) [Ratio] 23.9 kg/m2 Dr. Adarsh Duggan Work Phone: [facility] Work Phone: 12-18-2021 16:51-0400 Body temperature 97.9 [degF] Dr. Adarsh Duggan Work Phone: [facility] Work Phone: 12-18-2021 16:51-0400 Diastolic blood pressure 77 mm[Hg] Dr. Adarsh Duggan Work Phone: [facility] Work Phone: 12-18-2021 16:51-0400 Heart rate 129 /min Dr. Adarsh Duggan Work Phone: [facility] Work Phone: 12-18-2021 16:51-0400 Respiratory rate 20 /min Dr. Adarsh Duggan Work Phone: [facility] Work Phone: 12-18-2021 16:51-0400 SaO2% (BldA) [Mass fraction] 93 % Dr. Adarsh Duggan Work Phone: [facility] Work Phone: 12-18-2021 16:51-0400 Systolic blood pressure 105 mm[Hg] Dr. Adarsh Duggan Work Phone: [facility] Work Phone: 12-18-2021 11:01-0400 Body height 167.[address] Adarsh Duggan Work Phone: [facility] Work Phone: 12-18-2021 11:01-0400 Body mass index (BMI) [Ratio] 21.3 kg/m2 Dr. Adarsh Duggan Work Phone: [facility] Work Phone: 12-18-2021 11:01-0400 Body weight [address] Adarsh Duggan Work Phone: [facility] Work Phone: 12-20-2020 13:50-0400 BP Diastolic 81 mm[Hg] Emiliano MCCAULEY Work Phone: 12-20-2020 13:50-0400 BP Systolic 154 mm[Hg] Emiliano MCCAULEY Work Phone: 12-20-2020 13:50-0400 Pulse (Heart Rate) 68 /min Emiliano MCCAULEY Work Phone: 12-20-2020 13:50-0400 Respiratory Rate 16 /min Emiliano MCCAULEY Work Phone: 12-20-2020 12:45-0400 Pulse Oximetry 98 % Emiliano MCCAULEY Work Phone: 12-20-2020 10:37-0400 BMI (Body Mass Index) 22.27 kg/m2 Emiliano MCCAULEY Work Phone: 12-20-2020 10:37-0400 Body Temperature 97.81 [degF] Emiliano MCCAULEY Work Phone: 12-20-2020 10:37-0400 Body weight 62.6 kg [facility]: 12-20-2020 10:37-0400 Height 167.6 cm [facility] Work [facility]: Encounters Encounter Date Encounter Type Care Provider Facility Start: 07-03-2025 End: 07-03-2025 Refill Adarsh Duggan MD Work Phone: [facility] Comment on above: Anxiety Start: 06-23-2025 End: 06-23-2025 Emergency department patient visit Alexandro Neville MD Work Phone: [facility] ED Comment on above: Paronychia of finger of right hand (Primary Dx) Start: 06-12-2025 End: 06-14-2025 Refill Adarsh Duggan MD Work Phone: [facility] Comment on above: Neuropathy Start: 06-05-2025 End: 06-05-2025 Refill Adarsh Duggan MD Work Phone: [facility] Clinical Communication Comment on above: Anxiety Start: 05-12-2025 End: 05-16-2025 Refill Adarsh Duggan MD Work Phone: [facility] Comment on above: Neuropathy Start: 04-06-2025 End: 04-10-2025 Refill Adarsh Duggan MD Work Phone: [facility] Comment on above: Anxiety Start: 01-25-2025 End: 01-25-2025 ambulatory ADARSH DUGGAN [facility] Start: 01-25-2025 End: 01-25-2025 Office outpatient visit 25 minutes Adarsh Duggan MD Work Phone: [facility] Comment on above: Chronic obstructive pulmonary disease, unspecified COPD type (HCC) (Primary Dx); Paroxysmal atrial fibrillation (HCC); Coronary artery disease involving navajo coronary artery of navajo heart without angina pectoris; Neuropathy; Essential hypertension; Fibromyalgia; Cigarette smoker; Anxiety; Pure hypercholesterolemia; Ganglion cyst of wrist, left; Depressive disorder Start: 10-26-2024 End: 10-26-2024 Refill Adarsh Duggan MD Work Phone: [facility] Comment on above: Neuropathy Start: 10-20-2024 End: 10-20-2024 Telephone encounter Adarsh Duggan MD Work Phone: [facility] Start: 10-03-2024 End: 10-03-2024 Subsequent hospital visit by physician Adarsh Duggan MD Work Phone: [facility] CT Comment on above: Cigarette smoker Start: 10-03-2024 End: 10-03-2024 ambulatory [facility] Start: 09-26-2024 End: 09-26-2024 Refill Adarsh Duggan MD Work Phone: [facility] Comment on above: Neuropathy Start: 08-29-2024 End: 08-29-2024 ambulatory [facility] Start: 07-26-2024 End: 07-26-2024 Patient encounter procedure Adarsh Duggan MD Work Phone: [facility] Comment on above: Medicare annual [facility] visit, subsequent (Primary Dx); Paroxysmal atrial fibrillation (HCC); Chronic obstructive pulmonary disease, unspecified COPD type (HCC); Myoclonic disorder; Coronary artery disease involving navajo coronary artery of navajo heart without angina pectoris; Pure hypercholesterolemia; Depressive disorder; Anxiety; Cigarette smoker; Screening for diabetes mellitus; Influenza vaccine refused Start: 07-26-2024 End: 07-26-2024 ambulatory [facility] Start: 07-26-2024 End: 07-26-2024 Encounter for general adult medical examination without abnormal findings [facility] Start: 05-12-2024 End: 05-12-2024 Refill Adarsh Duggan MD Work Phone: [facility] Comment on above: Neuropathy Start: 05-05-2024 End: 05-06-2024 Refill Adarsh Duggan MD Work Phone: [facility] Comment on above: Anxiety Start: 03-11-2024 End: 03-11-2024 Refill Adarsh Duggan MD Work Phone: [facility] Comment on above: Anxiety Start: 01-05-2024 End: 01-05-2024 Subsequent hospital visit by physician Deana Oh HIGH REACH OPERATOR - [employer]GER [employer] Work Phone: [facility] Comment on above: Mass of left side of neck Start: 01-01-2024 End: 01-01-2024 Subsequent hospital visit by physician Deana Oh HIGH REACH OPERATOR - [employer]GER [employer] Work Phone: [facility] Comment on above: Canceled (Other: Can celed via Interface) Start: 12-23-2023 End: 12-23-2023 Office outpatient visit 25 minutes Deana Oh HIGH REACH OPERATOR - MANAGER [employer] Work Phone: [facility] Comment on above: Mass of left side of neck (Primary Dx); Neuropathy; Anxiety; Chronic obstructive pulmonary disease, unspecified COPD type (HCC); Essential hypertension Start: 12-22-2023 ambulatory Shireen Atnunez RN [facility] Cl inical Communication Start: 12-22-2023 Patient encounter procedure Shireen murray RN [facility] Clinical Communication Start: 12-14-2023 Refill Adarsh Duggan MD Work Phone: [facility] Comment on above: Anxiety Start: 07-27-2023 Telephone encounter Taylor Hidalgo HIGH REACH OPERATOR - [employer]GER [employer] Work Phone: [facility] Comment on above: Blood Pressure Check Start: 07-21-2023 End: 07-21-2023 Patient encounter procedure Adarsh Duggan MD Work Phone: [facility] Comment on above: Medicare annual well ness visit, subsequent (Primary Dx); Anxiety; Peripheral vascular disease, unspecified (HCC); Chronic obstructive pulmonary disease, unspecified COPD type (HCC); Essential hypertension; Coronary artery disease involving navajo coronary artery of navajo heart without angina pectoris; Paroxysmal atrial fibrillation ([facility]); Pure hypercholesterolemia; Osteoporosis without current pathological fracture, unspecified osteoporosis type Start: 07-09-2023 Telephone encounter Adarsh Avalos MD Work Phone: [facility] Comment on above: Results Start: 07-07-2023 End: 07-07-2023 Subsequent hospital visit by physician Adarsh Duggan MD Work Phone: [facility] Radiology Comment on above: Menopause Start: 05-27-2023 Telephone encounter Adarsh Avalos MD Work Phone: [facility] Start: 05-25-2023 End: 05-25-2023 Office outpatient visit 25 minutes Taylor Ruby HIGH REACH OPERATOR - [employer]GER [employer] Work Phone: [facility] Comment on above: Viral URI with cough (Primary Dx); Chronic obstructive pulmonary disease, unspecified COPD type ([facility]); Smoker Start: 03-30-2023 Refill Adarsh Duggan MD Work Phone: [facility] Medicine Start: 03-02-2023 Refill Adarsh Duggan MD Work Phone: [facility] Comment on above: Chronically on benzo diazepine therapy (Primary Dx); Anxiety Start: 01-24-2023 End: 01-24-2023 Subsequent hospital visit by physician [facility] Radiology Comment on above: Arrived Start: 01-24-2023 End: 01-24-2023 Emergency department patient visit Temo Hicks MD Work Phone: [facility] ED Comment on above: Acute hip pain, left (Primary Dx); Closed compression fracture of L1 lumbar vertebra, initial encounter ([facility]) Start: 01-05-2023 Refill Deana Paloma carr HIGH REACH OPERATOR - [employer]GER [employer] Work Phone: [facility] Comment on above: Anxiety Start: 12-02-2022 Refill Deana Briden thal HIGH REACH OPERATOR - MANAGER [employer] Work Phone: [facility] Comment on above: Anxiety Start: 11-05-2022 Refill Adarsh Duggan MD Work Phone: [facility] Clinical Communication Comment on above: Anxiety Start: 11-04-2022 Refill Deanagalilea carr HIGH REACH OPERATOR - MA[employer]GER [employer] Work Phone: [facility] Comment on above: Anxiety Start: 10-28-2022 ambulatory Patt Lerma RN [facility] Comment on above: COPD; Hypertension Start: 10-09-2022 Telephone encounter Adarsh Avalos MD Work Phone: [facility] Comment on above: Medication request Start: 10-06-2022 Refill Deanagalilea Dow lilly HIGH REACH OPERATOR - MA[employer]GER [employer] Work Phone: [facility] Comment on above: Anxiety Start: 09-05-2022 ambulatory Patt Lerma RN [facility] Comment on above: COPD; Hypertension Start: 07-04-2022 Transcribe Orders Nelida Santana DO Work Phone: [facility] Central Scheduling Comment on above: Nicotine dependence, cigarettes, uncomplicated (Primary Dx) Start: 06-24-2022 Transcribe Orders Adarsh Drummond MD Work Phone: [facility] Comment on above: Encounter for screen ing for malignant neoplasm of respiratory organs (Primary Dx) Start: 06-10-2022 ambulatory Adarsh Duggan Facility :[facility] [place] [place] Start: 05-29-2022 End: 05-29-2022 Emergency department patient visit Adarsh Duggan Facility:[facility] Start: 05-29-2022 End: 05-29-2022 Emergency department patient visit Dr. Adarsh Duggan Work Phone: [facility]Emergency Department Start: 05-28-2022 End: 05-28-2022 Emergency department patient visit Adarsh Duggan [facility] Start: 05-28-2022 End: 05-28-2022 Emergency department patient visit Berenice Zelaya DO Work Phone: [facility] Comment on above: Neck pain (Primary D x); Torticollis Start: 05-25-2022 End: 05-25-2022 Emergency department patient visit [facility] Facility:[facility] Start: 05-25-2022 End: 05-25-2022 Emergency department patient visit Dr. Adarsh Duggan Work Phone: [facility]Emergency Department Start: 05-24-2022 End: 05-24-2022 Emergency department patient visit [facility] Start: 05-24-2022 End: 05-24-2022 Emergency department patient visit Brayan Bergman MD Work Phone: [facility] Comment on above: Neck pain (Primary D x); Torticollis Start: 04-24-2022 ambulatory [facility] Facility :[facility] [place] Start: 02-19-2022 Telephone encounter Caryn agrawal MD Work Phone: [facility] [place] Comment on above: Orders Start: 02-07-2022 Telephone encounter Andrea daniel APRN.CNP Work Phone: [facility] [place] Comment on above: Appointment Start: 02-07-2022 ambulatory [facility] Facility :[facility] [place] [place] Start: 02-07-2022 Non-patient / Non-visit Dr. Rivera Work Phone: [facility] Start: 02-07-2022 Non-patient / Non-visit Dr. Rivera Work Phone: [facility] Start: 02-06-2022 End: 02-07-2022 ambulatory [facility] Facility:[facility] Start: 02-06-2022 Non-patient / Non-visit Dr. Rivera Work Phone: [facility] Start: 02-06-2022 End: 02-07-2022 Evaluation and management of inpatient Dr. Adarsh Duggan [facility] Start: 01-27-2022 Patient encounter status Bryan Wood MD Work Phone: [facility] [place] Start: 01-27-2022 Telephone encounter Caryn agrawal MD Work Phone: [facility] [place] Comment on above: Orders; Preparations For Procedures (PVAI Ablation) Start: 01-21-2022 End: 01-21-2022 Patient encounter procedure Caryn Wood MD Work Phone: [facility] [place] Comment on above: Paroxysmal atrial fi brillation (HCC) (Primary Dx); Palpitations; 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; Coronary artery disease involving navajo coronary artery of navajo heart without angina pectoris; History of ST elevation myocardial infarction (STEMI); S/P angioplasty with stent; At risk for stroke; Anticoagulant long-term use; Tobacco abuse; Chronic obstructive pulmonary disease, unspecified COPD type (HCC) Start: 01-03-2022 End: 01-03-2022 ambulatory Adarsh Duggan Facility:[facility] [place] [place] Start: 12-18-2021 End: 12-19-2021 [email or web address] Start: 12-18-2021 Non-patient / Non-visit Dr. Rivera Work Phone: [facility] Start: 12-18-2021 End: 12-19-2021 Evaluation and management of inpatient Dr. Adarsh Duggan [facility] Start: 11-06-2021 ambulatory Adarsh Olga Lidia Facility :[facility] [place] [place] Start: 07-01-2021 ambulatory UNKNOWN PROVIDER [facility] Start: 12-20-2020 End: 12-20-2020 Emergency department patient visit Emiliano Chin Work Phone: [facility] ED Comment on above: Back muscle spasm (P rimary Dx) Start: 05-10-2020 End: 05-10-2020 Subsequent hospital visit by physician Nelida Santana Work Phone: [facility] Comment on above: Vitamin D deficiency ; Bilateral lower extremity edema; B12 deficiency Start: 03-30-2020 End: 03-30-2020 Subsequent hospital visit by physician Margot Brown Work Phone: [facility] Comment on above: Paroxysmal atrial fi brillation (HCC) Start: 03-15-2020 End: 03-15-2020 Subsequent hospital visit by physician Margot Brown Work Phone: [facility] Comment on above: Pure hypercholestero lemia Start: 01-31-2020 End: 01-31-2020 Subsequent hospital visit by physician Nelida Santana Work Phone: [facility] Comment on above: Chronic fatigue; Vitamin D deficiency; Bilateral lower extremity edema Start: 09-10-2019 End: 09-10-2019 Subsequent hospital visit by physician Nelida Santana DO Work Phone: [facility] Comment on above: Arrived Start: 05-08-2018 Evaluation and manag ement of inpatient [facility] Procedures Date Procedure Procedure Detail Performing Clinician Start: 06-23-2025 Drainage finger absc ess simple Alexandro Neville MD Work Phone: Start: 08-29-2024 Lipid 1996 panel - S freddie or Plasma Adarsh Duggan MD Work Phone: Start: 01-24-2023 End: 01-24-2023 Radex spine lumbosacral 2/3 views Temo Hicks MD Work Phone: Start: 12-30-2022 Lipid 1996 panel - S freddie or Plasma Deana Oh HIGH REACH OPERATOR - MANAGER [employer]ING Work Phone: Start: 05-29-2022 Plain chest X-ray Dr. Claudia Duggan Work Phone: Start: 05-24-2022 Ct soft tissue neck w/o contrast material Brayan Bergman MD Work Phone: Start: 03-19-2022 Lipid 1996 panel - S freddie or Plasma Adarsh Duggan MD Work Phone: Start: 02-06-2022 Plain chest X-ray Dr. Claudia Duggan Work Phone: Start: 02-03-2022 Antibody screen Comment on above: Order Comment: Speci men Type: BLOOD SPECIMENOrdering Facility: [facility] Address: [address] [place] [address] Performed By: #### T SCR ####[facility] BLOOD BANKCLIA [id number] [place] [address] [place] [facility] Start: 01-21-2022 Ecg routine ecg w/le ast 12 lds w/i&r Caryn Wood MD Work Phone: Start: 12-18-2021 Plain chest X-ray Dr. Claudia Duggan Work Phone: Start: 09-18-2021 History of placement of stent for coronary artery disease History of coronary artery stent placement Adarsh Duggan MD Work Phone: Start: 08-28-2021 History of placement of stent for coronary artery disease History of coronary artery stent placement Caryn Wood MD Work Phone: Start: 05-10-2020 25 hydroxy includes fractions if performed Nelida Santana Work Phone: Start: 05-10-2020 Blood count complete automated Nelida Santana Work Phone: Start: 05-10-2020 Comprehensive metabo lic panel Nelida Santana Work Phone: Start: 05-10-2020 Cyanocobalamin vitamin b-12 Nelida Santana Work Phone: Start: 03-15-2020 Lipid panel Margot Brown Work Phone: Start: 01-31-2020 25 hydroxy includes fractions if performed Nelida Santana Work Phone: Start: 01-31-2020 Assay of thyroid stimulating hormone tsh Nelida Santana Work Phone: Start: 01-31-2020 Blood count complete automated Nelida Santana Work Phone: Start: 01-31-2020 Comprehensive metabo lic panel Nelida Santana Work Phone: Start: 01-31-2020 Cyanocobalamin vitamin b-12 Nelida Santana Work Phone: Start: 09-10-2019 Dup-scan xtr veins c omplete bilateral study Nelida Santana DO Work Phone: Start: 09-10-2019 Non-invasive physiol ogic study extremity 3 levls Nelidaaldo Santana DO Work Phone: Start: 05-08-2018 History of placement of stent for coronary artery disease History of coronary artery stent placement Dr. Adarsh Duggan Work Phone: Plan of Treatment Date Care Activity Detail Author Start: 08-29-2029 Lipid panel Lipid Panel [facility] Start: 04-09-2028 DTaP/Tdap/Td vaccine (3 - Td or Tdap) DTaP/Tdap/Td vaccine (3 - Td or Tdap) [facility] Start: 04-09-2028 DTaP/Tdap/Td vaccine (3 - Td) DTaP/Tdap/Td vaccine (3 - Td) [facility] Work Phone: Start: 04-09-2028 DTaP/Tdap/Td Vaccines (3 - Td or Tdap) DTaP/Tdap/Td Vaccines (3 - Td or Tdap) [facility] Start: 04-09-2028 Urine microalbumin profile DTAP,TDAP,TD (3 - Td or Tdap) [facility] Start: 12-31-2027 Lipid panel Lipid Panel [facility] Start: 03-19-2027 Lipid panel [facility] Start: 10-03-2025 Screening for malignant neoplasm of lung Lung Cancer Screening [facility] Start: 08-02-2025 End: 08-02-2025 Patient encounter procedure 08/02/2025 1:30 PM EST Office Visit [address] [place] [address] Adarsh Duggan MD [address] [place] [address] [place] [address] [facility] Start: 07-26-2025 COVID-19 Vaccine ( season) COVID-19 Vaccine ( season) [facility] Comment on above: Postponed from 05/15/2024 (Patient Refus ed) Start: 07-26-2025 Hepatitis C screening Hepatitis C Screening [facility] Comment on above: Postponed from 1969 (Patient Refus ed) Start: 07-26-2025 RSV Immunization for Adults (1 - Risk 60-74 years 1-dose series) RSV Immunization for Adults (1 - Risk 60-74 years 1-dose series) [facility] Comment on above: Postponed from 2011 (Patient Refus ed) Start: 07-26-2025 Zoster Vaccines (1 of 2) Zoster Vaccines (1 of 2) [facility] Comment on above: Postponed from 2001 (Patient Refus ed) Start: 07-07-2025 Screening for osteoporosis Bone Density Scan [facility] Start: 05-15-2025 COVID-19 Vaccine ( season) COVID-19 Vaccine ( season) [facility] Start: 05-15-2025 Influenza vaccination [facility] Start: 03-15-2025 Lipid panel Lipid screen [facility] Work Phone: Start: 03-13-2025 Influenza vaccination Influenza Vaccine (#1) [facility] Comment on above: Postponed from 05/15/2024 (Patient Refus ed) Start: 02-04-2025 DIABETES SCREEN DIABETES SCREEN [facility] Start: 01-25-2025 End: 01-25-2025 Patient encounter procedure 01/25/2025 1:15 PM EDT Office Visit [place] [address] [place] [facility] [address] [facility] [place] [address] [facility] Start: 01-23-2025 Depression Monitoring Depression Monitoring [facility] Start: 10-03-2024 Subsequent hospital visit by physician 10/03/2024 2:15 PM EST Hospital Encounter [facility] [address] [place] [phone] [facility] [place] [facility] [place] [address] [facility] [address] Start: 09-14-2024 Medicare Advantage Annual Wellness Visit Medicare Advantage Annual Wellness Visit [facility] Start: 08-20-2024 Medicare Advantage Annual Wellness Visit (AWV) Medicare Advantage Annual Wellness Visit (AWV) [facility] Start: 07-26-2024 End: 07-25-2025 Comprehensive metabolic 1998 panel - Serum or Plasma Comprehensive metabolic panel Lab Routine Screening for diabetes mellitus Expected: 07/26/2024 (Approximate), Expires: 07/25/2025 [facility] Comment on above: Expected: 07/26/2024 (Approximate), Expi res: 07/25/2025 Start: 07-26-2024 End: 07-26-2025 CT Chest for screening WO contrast CT lung screening low dose Imaging Routine Cigarette smoker Expected: 07/26/2024, Expires: 07/26/2025 [facility] Comment on above: Expected: 07/26/2024, Expires: Start: 07-26-2024 End: 07-25-2025 Lipid 1996 panel - Serum or Plasma Lipid panel Lab Routine Pure hypercholesterolemia Expected: 07/26/2024 (Approximate), Expires: 07/25/2025 [facility] Work Phone: Comment on above: Expected: 07/26/2024 (Approximate), Expi res: 07/25/2025 Start: 07-26-2024 End: 07-26-2024 Patient encounter procedure 07/26/2024 2:00 PM EST Office Visit [facility] [place] [address] Adarsh [facility] [place] [address] [facility] Start: 07-07-2024 Screening for osteoporosis Bone Density Scan [facility] Start: 05-15-2024 Influenza vaccination [facility] Start: 02-02-2024 End: 02-02-2024 Patient encounter procedure 02/02/2024 2:00 PM EDT Office Visit [facility] [address] [place] [facility] [place] [address] Adarsh Duggan MD [address] [facility] [place] [address] [facility] Start: 01-19-2024 Depression Monitoring Depression Monitoring [facility] Start: 01-19-2024 Depresssion Monitoring Depresssion Monitoring [facility] Start: 01-05-2024 End: 01-05-2024 Patient encounter procedure 01/05/2024 3:00 PM EDT Appointment [facility] [address] [place] [phone] Bridenthal, Deana, HIGH REACH OPERATOR - MANAGER BUSINESS BANKING [address] [place] [facility] [place] [address] [facility] Start: 01-01-2024 End: 01-01-2024 Patient encounter procedure 01/01/2024 9:30 AM EDT Appointment [facility] [address] [place] [phone] Bridenthal, Deana, HIGH REACH OPERATOR - MANAGER BUSINESS [employer] [address] [place] [facility] [place] [address] [facility] Start: 12-31-2023 Lipid panel Lipid Panel [facility] Start: 12-23-2023 End: 12-22-2024 CBC W Auto Differential panel - Blood CBC auto differential Lab Routine Neuropathy Mass of left side of neck Expected: 12/23/2023 (Approximate), Expires: 12/22/2024 [facility] Comment on above: Expected: 12/23/2023 (Approximate), Expi res: 12/22/2024 Start: 12-23-2023 End: 12-23-2023 Patient encounter procedure 12/23/2023 2:00 PM EDT Office Visit [facility] [address] [facility] [place] [address] Deana Oh, HIGH REACH OPERATOR - MANAGER BUSINESS [employer]ING [address] [facility] [place] [address] [facility] Start: 12-23-2023 End: 12-22-2024 US Head and neck soft tissue US head neck soft tissue Imaging Routine Mass of left side of neck Expected: 12/23/2023, Expires: 12/22/2024 [facility] Work Phone: Comment on above: Expected: 12/23/2023, Expires: Start: 09-14-2023 Medicare Advantage Annual Wellness Visit Medicare Advantage Annual Wellness Visit [facility] Start: 07-27-2023 End: 07-27-2023 Clinical Support 07/27/2023 1:30 PM EST Clinical Support [address] [place] [address] [facility] Start: 07-21-2023 End: 07-21-2023 Patient encounter procedure 07/21/2023 2:00 PM EST Office Visit [address] [place] [address] Adarsh Duggan MD [address] [place] [address] [facility] Start: 07-02-2023 End: 07-02-2023 Patient encounter procedure [facility] Start: 07-01-2023 Depresssion Monitoring Depresssion Monitoring [facility] Start: 05-15-2023 COVID-19 Vaccine ( season) COVID-19 Vaccine ( season) [facility] Start: 05-15-2023 Influenza vaccination [facility] Start: 03-19-2023 Depression Monitoring Depression Monitoring [facility] Start: 03-02-2023 End: 05-02-2023 Drug tst prsmv read instrmnt asstd dir opt obs AMB POC DRUG SCREEN 12, [facility]SOURCE Point of Care Testing Routine Chronically on benzodiazepine therapy Expected: 03/02/2023, Expires: 05/02/2023 [facility] Work Phone: Comment on above: Expected: 03/02/2023, Expires: 3 Start: 12-30-2022 End: 12-30-2022 Patient encounter procedure 12/30/2022 Office Visit Family Medicine [facility] [place] [address] [facility] Start: 07-04-2022 End: 07-04-2023 CT Chest for screening WO contrast CT lung screening low dose Imaging Routine Nicotine dependence, cigarettes, uncomplicated Expected: 07/04/2022, Expires: 07/04/2023 [facility] Work Phone: Comment on above: Expected: 07/04/2022, Expires: 3 Start: 06-24-2022 End: 06-24-2022 Patient encounter procedure 06/24/2022 Office Visit Family Medicine Adarsh Duggan MD [address] [place] [address] [facility] Start: 06-05-2022 End: 06-05-2022 Nursing evaluation of patient and report 06/05/2022 Nurse Only Family Medicine [facility] Start: 05-29-2022 Troponin I measurement [facility] Work Phone: Start: 05-29-2022 [facility] Work Phone: Start: 05-25-2022 Electrocardiographic procedure [facility] Work Phone: Start: 05-25-2022 Blood chemistry [facility] Work Phone: Start: 05-25-2022 Troponin I measurement [facility] Work Phone: Start: 05-22-2022 End: 02-19-2023 Echocardiography ECHO Cardiology Routine Persistent atrial fibrillation (HCC) Dyspnea, unspecified type Expected: 05/22/2022, Expires: 02/19/2023 [facility] Work Phone: Comment on above: Expected: 05/22/2022, Expires: 3 Start: 05-22-2022 End: 02-19-2023 HOLTER MONITOR 24 HOUR HOLTER MONITOR 24 HOUR ECG Routine Persistent atrial fibrillation (HCC) Dyspnea, unspecified type Expected: 05/22/2022, Expires: 02/19/2023 [facility] Work Phone: Comment on above: Expected: 05/22/2022, Expires: 3 Start: 05-15-2022 Influenza vaccination [facility] Start: 02-07-2022 Patient discharge [facility] Work Phone: Start: 02-07-2022 [facility] Work Phone: Start: 02-06-2022 Following clinical pathway protocol [facility] Work Phone: Start: 02-06-2022 Assessment of risk of venous thromboembolism [facility] Work Phone: Start: 02-06-2022 Catheterization of vein [facility] Work Phone: Start: 02-06-2022 Incentive spirometry [facility] Work Phone: Start: 02-06-2022 Inhalation therapy procedure [facility] Work Phone: Start: 02-06-2022 Insertion of catheter into peripheral vein [facility] Work Phone: Start: 02-06-2022 Measuring intake and output [facility] Work Phone: Start: 02-06-2022 Medication education [facility] Work Phone: Start: 02-06-2022 Providing care according to standard [facility] Work Phone: Start: 02-06-2022 Referral to weighing station operator [facility] Work Phone: Start: 02-06-2022 [facility] Work Phone: Start: 02-06-2022 Admission procedure [facility] Work Phone: Start: 02-06-2022 Patient referral to dietitian [facility] Work Phone: Start: 01-27-2022 End: 01-27-2023 SARS-CoV-2 (COVID-19) RNA [Presence] in Respiratory specimen by AJITH with probe detection PRE-PROCEDURE & PRE-OPERATIVE COVID Microbiology Routine Pre-procedure lab exam Expected: 01/27/2022, Expires: 01/27/2023 [facility] Work Phone: Comment on above: Expected: 01/27/2022, Expires: 3 Start: 01-25-2022 COVID-19 VACCINE (3 - Booster for Pfizer series) COVID-19 VACCINE (3 - Booster for Pfizer series) [facility] Start: 10-22-2021 COVID-19 Vaccine (3 - Booster for Pfizer series) COVID-19 Vaccine (3 - Booster for Pfizer series) [facility] Start: 10-22-2021 COVID-19 Vaccine (3 - Pfizer series) COVID-19 Vaccine (3 - Pfizer series) [facility] Start: 09-14-2021 ADVANCE DIRECTIVE DISCUSSION ADVANCE DIRECTIVE DISCUSSION [facility] Start: 05-15-2021 Influenza vaccination Flu vaccine (Season Ended) [facility] Work Phone: Start: 05-10-2021 Creatinine measurement Creatinine monitoring [facility] Work Phone: Start: 05-10-2021 Potassium monitoring Potassium monitoring [facility] [employer] Phone: Start: 05-08-2021 DIABETES SCREEN DIABETES SCREEN [facility] Start: 03-15-2021 Lipid panel Lipid screen [facility] [place] Start: 01-30-2021 Creatinine measurement Creatinine monitoring [facility] [place] [place] Start: 01-30-2021 Potassium monitoring Potassium monitoring [facility] [place] Start: 05-15-2020 Influenza vaccination Flu vaccine (#1) [facility] [place] Start: 03-30-2020 End: 03-30-2020 Appointment 03/30/2020 Appointment Margot Mireles, HIGH REACH OPERATOR - MANAGER BUSINESS BANKING [address] [facility] [place] [address] [place] [address] [facility] Start: 03-22-2020 End: 03-22-2020 Nurse Only 03/22/2020 Nurse Only Family Medicine [facility] Start: 05-22-2019 [facility]inine [facility] Start: 05-22-2019 Creatinine monitoring Creatinine monitoring [facility] Work Phone: Start: 05-22-2019 Potassium monitoring Potassium monitoring [facility] Work Phone: Start: 05-08-2019 Lipid panel Lipid screen [place], [place] Start: 05-08-2019 Lipid screen Lipid screen [facility] Work Phone: Start: 03-03-2019 Annual Wellness Visit (AWV) Annual Wellness Visit (AWV) [facility] Work Phone: Start: 08-19-2018 Colon Cancer Screen FIT/FOBT Colon Cancer Screen FIT/FOBT [facility] Work Phone: Start: 08-19-[address] lung screening Low dose CT lung screening [facility] Work Phone: Start: 08-19-2018 Screening for malignant neoplasm of colon [facility] Start: 08-19-2018 Screening for malignant neoplasm of lung Low dose CT lung screening [place], [place] Start: 01-06-2018 Pneumococcal 65+ years Vaccine (2 of 2 - PPSV23) Pneumococcal 65+ years Vaccine (2 of 2 - PPSV23) [facility] Work Phone: Start: 11-03-2016 Breast cancer screen Breast cancer screen [facility] Work Phone: Start: 11-03-2016 Screening for malignant neoplasm of breast Breast cancer screen [facility] Start: 2016 BONE DENSITY BONE DENSITY [facility] Start: 2011 RSV Immunization aged 60 or older (1 - 1-dose 60+ series) RSV Immunization aged 60 or older (1 - 1-dose 60+ series) [facility] Start: 2001 Screening for malignant neoplasm of lung [facility] Start: 2001 Shingles Vaccine (1 of 2) Shingles Vaccine (1 of 2) [facility] Start: 2001 SHINGRIX VACCINE (1 of 2) SHINGRIX VACCINE (1 of 2) [facility] Start: 2001 Zoster Vaccines (1 of 2) Zoster Vaccines (1 of 2) [facility] Start: 1996 COLOGUARD (FIT-DNA) COLOGUARD (FIT-DNA) [facility] Start: 1996 Colonoscopy COLONOSCOPY [facility] Start: 1996 COLORECTAL CANCER SCREENING COLORECTAL CANCER SCREENING [facility] Start: [address] COLONOGRAPHY [facility] Start: 1996 FECAL OCCULT BLOOD FECAL OCCULT BLOOD [facility] Start: 1996 LIPID SCREEN LIPID SCREEN [facility] Start: 1996 Screening for malignant neoplasm of colon [facility] Start: 1996 SIGMOIDOSCOPY SIGMOIDOSCOPY [facility] Start: 1991 Mammography MAMMOGRAM [facility] Start: 1991 Screening for malignant neoplasm of breast Mammogram [facility] Start: 1969 ANNUAL PCP TEAM CHRONIC DISEASE VISIT ANNUAL PCP TEAM CHRONIC DISEASE VISIT [facility] Start: 1969 BP CONTROLLED (<130/80) BP CONTROLLED (<130/80) [facility] Start: 1969 Diabetes mellitus screening Diabetes Screening [facility] Start: 1969 Hepatitis B surface antibody level LDL CHOLESTEROL [facility] Start: 1969 HEPATITIS C SCREENING HEPATITIS C SCREENING [facility] Start: 1969 Hepatitis C screening [facility] Start: 1969 SPIROMETRY SPIROMETRY [facility] Start: 1967 COVID-19 Vaccine (1) COVID-19 Vaccine (1) [facility] Work Phone: Start: 1961 Diabetic foot examination Diabetes: Foot Exam [facility] Start: 1961 Glaucoma screening Diabetes: Retinopathy Screening [facility] Start: 1961 Preventive dental service Diabetes: Dental Exam [facility] Start: 1951 Annual Wellness Visit (AWV) Annual Wellness Visit (AWV) [facility] Start: 1951 Hemoglobin A1c measurement Diabetes: [facility]C [facility] Start: 1951 Hepatitis B Vaccines (1 of 3 - 3-dose series) Hepatitis B Vaccines (1 of 3 - 3-dose series) [facility] Start: 1951 Hepatitis C screen Hepatitis C screen [facility] Work Phone: Start: 1951 Hepatitis C screening [facility] Start: 1951 Medicare Advantage Annual Wellness Visit (AWV) Medicare Advantage Annual Wellness Visit (AWV) [facility] Start: 1951 Screening for malignant neoplasm of colon [facility] Start: 1951 Screening for osteoporosis Bone Density Scan [facility] Anion gap measurement [facility] Work Phone: BUN/Creatinine ratio [facility] Work Phone: Calcium [Mass/volume ] in Serum or Plasma [facility] Work Phone: Carbon dioxide, tota l [Moles/volume] in Serum or Plasma [facility] Work Phone: Chloride [Moles/volu me] in Serum or Plasma [facility] Work Phone: Creatinine [Moles/vo lume] in Serum or Plasma [facility] Work Phone: End: 10-03-2024 CT Chest for screening WO [facility] Work Phone: Comment on above: Once for 1 Occurrences starting 10/03/19 25 until 10/03/2024 End: 07-07-2023 DXA Skeletal system.axial Views for bone density [facility] Work Phone: Comment on above: Once for 1 Occurrences starting 07/07/20 23 until 07/07/2023 End: 03-30-2020 Event Monitor Event Monitor [facility] Services Routine Paroxysmal atrial fibrillation (HCC) 1 Occurrences starting 03/30/2020 until 03/30/2020 [place], [place] Comment on above: 1 Occurrences starting 03/30/2020 until 03/30/2020 Glucose [Mass/volume ] in Serum or Plasma [facility] Work Phone: Hematocrit [Volume Fraction] of Blood [facility] Work Phone: Hemoglobin [Mass/vol ume] in Blood [facility] Work Phone: Leukocytes [#/volume ] in Blood [facility] Work Phone: Mean corpuscular hem oglobin concentration determination [facility] Work Phone: Mean corpuscular hem oglobin determination [facility] Work Phone: Measurement of renal function [facility] Work Phone: Neutrophil count [facility] Work Phone: Neutrophil percent differential count [facility] Work Phone: OUTSIDE PROCEDURE SCAN OUTSIDE P ROCEDURE SCAN Procedures Ordered: 07/06/2023 [facility] Comment on above: Ordered: 07/06/2023 OUTSIDE PROCEDURE SCAN OUTSIDE P ROCEDURE SCAN Procedures Ordered: 12/31/2023 [facility] Comment on above: Ordered: 12/31/2023 OUTSIDE PROCEDURE SCAN OUTSIDE P ROCEDURE SCAN Procedures Ordered: 01/04/2024 [facility] Comment on above: Ordered: 01/04/2024 Patient Education [facility] Work Phone: Patient referral [facility] Work Phone: Platelets [#/volume] in Blood [facility] Work Phone: Potassium [Moles/vol ume] in Serum or Plasma [facility] Work Phone: Red blood cell count [facility] Work Phone: Red cell distributio n width determination [facility] Work Phone: Sodium [Moles/volume ] in Serum or Plasma [facility] Work Phone: Troponin I measurement [facility] Work Phone: Urea nitrogen [Mass/ volume] in Serum or Plasma [facility] Work Phone: End: 01-05-2024 US Head and neck soft tissue [facility] Work Phone: Comment on above: Once for 1 Occurrences starting 01/05/20 24 until 01/05/2024 [place] [facility] Immunizations Immunization Date Immunization Notes Care Provider Mane acevedo 08-27-2021 Covid (Pfizer) Dr. Adarsh white Work Phone: [facility] Work Phone: 08-06-2021 Covid (Pfizer) Dr. Adarsh white Work Phone: [facility] Work Phone: 09-17-2020 pneumococcal polysaccharide vaccine, 23 valent Emiliano Chin [facility] Work Phone: 08-24-2019 influenza, injectabl e, quadrivalent, contains preservative Nelida Santana DO Work Phone: [facility] Work Phone: 08-24-2019 influenza virus vacc ine, unspecified formulation Adarsh Duggan MD Work Phone: [facility] 07-15-2019 influenza, seasonal, injectable Dr. Adarsh Duggan Work Phone: [facility] Work Phone: 07-15-2019 influenza, seasonal, injectable, preservative free Caryn Wood MD Work Phone: [facility] Work Phone: 04-09-2018 tetanus toxoid, redu wilmer diphtheria toxoid, and acellular pertussis vaccine, adsorbed Nelida Santana DO Work Phone: [facility] Work Phone: 01-06-2017 pneumococcal conjuga te vaccine, 13 valent Nelida Santana DO Work Phone: [facility] Work Phone: 04-09-2016 tetanus toxoid, redu wilmer diphtheria toxoid, and acellular pertussis vaccine, adsorbed Nelida Santana DO Work Phone: [facility] Work Phone: Payers Date Payer Category Payer Medicare HMO [employer] MEDICARE [id number] 2023 Private Health Insurance [id number] 2021 Self-pay [id number] 2021 Medicare 2020 Medicare [id number] 2020 Unknown ANTHEM BLUE CROS S AND BLUE SHIELD ANTHEM MEDIBLUE HMO [id number] 2020-Present [phone] [address] [place] [address] O [id number] 2018 Medicare HU[employer]NA MEDICARE [employer] GOLD PLUS O xxxxxxxxx 2018-Present [address] [address] [place] [address] xxxxxxxxx [id number] 2014 Medicare MEDICARE MEDICAR E PART A AND B xxxxxxxxxxx 2014-Present [phone] [place] [address] [id number] 2014 Medicare MEDICARE MEDICAR E PART A AND B [id number] 2014-Present [phone] [place] [address] [id number] 2014 Medicare [id number] 1950 Unknown [id number] 2.16.840.1.130274.3.579.2 .668 1950 Unknown [id number] 2.16.840.1.090290.3.579.2 .668 1950 Unknown [id number] 2.16.840.1.847075.3.579.2 .668 Unknown Unknown [id number] 2.16.840.1.135912.3.579.2 .462 Unknown [id number] 2.16.840.1.493250.3.579.2 .462 Unknown [id number] 2.16.840.1.765493.3.579.2 .462 Unknown [id number] 2.16.840.1.941137.3.579.2 .462 Unknown [id number] 2.16.840.1.538237.3.579.2 .462 Unknown [id number] 2.16.840.1.175961.3.579.2 .462 Unknown [id number] 2.16.840.1.511725.3.579.2 .462 Unknown [id number] 2.16.840.1.323145.3.579.2 .462 Unknown [id number] 2.16.840.1.594454.3.579.2 .462 Unknown [id number] 2.16.840.1.328296.3.579.2 .462 Unknown [id number] 2.16.840.1.643695.3.579.2 .462 Unknown [id number] 2.16.840.1.519565.3.579.2 .462 Unknown [id number] 2.16.840.1.394932.3.579.2 .462 Unknown [id number] 2.16.840.1.701570.3.579.2 .462 Unknown [id number] 2.16.840.1.890026.3.579.2 .462 Social History Date Type Detail Facility Start: 01-31-2020 End: 06-23-2025 Tobacco smoking status NHIS Current every day smoker [facility] Start: 09-14-1963 History of tobacco use Cigarette Smoker [facility] Phone: Start: 01-31-2020 End: 07-26-2024 Cigarettes smoked current (pack per day) - Reported [facility] Start: 01-31-2020 End: 05-28-2022 Alcohol intake Current non-drinker of alcohol (finding) [facility] Phone: Start: 1950 Sex Assigned At Not on file [facility] Phone: Exposure to SARS-CoV -2 (event) Unable to assess [facility] Start: 03-13-2020 End: 06-23-2025 Tobacco use and exposure Never used [facility] [place] Start: 01-11-2022 End: 05-25-2023 Exposure to SARS-CoV-2 (event) Not sure [facility] Start: 12-18-2021 End: 05-29-2022 Tobacco smoking status NHIS Unknown if ever smoked [facility] Start: 01-08-2021 None [facility] Work Phone: Start: 01-08-2021 Alone [facility] Work Phone: Start: 08-08-2020 Cigarettes [facility] Work Phone: Start: 1950 Sex Assigned At Female [facility] Work Phone: Start: 05-09-2021 End: 07-08-2022 History SDOH Alcohol Frequency 1 [facility] Work Phone: Start: 05-09-2021 History SDOH Financial 3 [facility] Work Phone: Start: 05-09-2021 End: 05-26-2022 History SDOH Transport Med 2 [employer] Work Phone: Start: 12-10-2022 History SDOH Alcohol Std Drinks 0 [facility] Start: 12-10-2022 End: 07-26-2024 Alcohol Use Disorder Identification Test - Consumption [AUDIT-C] [facility] [place] How often to you hav e a drink containing alcohol? Never [facility] How many standard dr inks containing alcohol do you have on a typical day? Patient does not drink [facility] How hard is it for y ou to pay for the very basics like food, housing, medical care, and heating Very hard [facility] (I/We) worried ruben er (my/our) food would run out before (I/we) got money to buy more. Sometimes true [facility] In the past 12 month s, was there a time when you were not able to pay the mortgage or rent on time? No [facility] Start: 07-21-2023 End: 06-23-2025 Alcohol intake Ex-drinker (finding) [facility] How hard is it for y ou to pay for the very basics like food, housing, medical care, and heating Hard [facility] The food that (I/we) bought just didn't last, and (I/we) didn't have money to get more. Never true [facility] Are you now , , , , never or living with a partner? [facility] How hard is it for y ou to pay for the very basics like food, housing, medical care, and heating Not very hard [facility] Do you feel stress - tense, restless, nervous, or anxious, or unable to sleep at night because your mind is troubled all the time - these days [OSQ] Rather much [facility] Start: 04-14-2022 Sex Female (finding) [facility] Medical Equipment Procedure Code Equipment Code Equipment Origin al Text Equipment Identifier Dates Infuse into a ve nous catheter. [id number] Start: 02-19-2022 End: 05-21-2023 Goals Date Patient Goal Desired Activity /State Personal health goal Comment on above: Formatting of this n ote might be different from the original. MANAGE COPD AND REDUCE COPD EXACERBATIONS. Comment on above: Formatting of this n ote might be different from the original. MANAGE COPD AND REDUCE COPD EXACERBATIONS. Functional Status Date Assessment Result Facility 06-23-2025 Total score [AUDIT-C] 0 06/23/20 25 5:49 PM EDT Desire Elena RN [facility] 01-25-2025 Generalized anxiety disorder 7 item (TATIANNA-7) [facility] 02-07-2022 Functional status Ambulates [facility] Work Phone: 12-19-2021 Functional status Ambulates;Up ad meir [facility] Work Phone: [facility] Mental Status Date Assessment Result Facility 05-29-2022 Cognitive function Voice/Name [facility] Work Phone: 05-25-2022 Cognitive function Awake;Alert;A ppropriate;Fol lows Commands [facility] Work Phone: 02-07-2022 Cognitive function Voice/Name;To uch/Shaking;Li ght Pain;Deep Pain [facility] Work Phone: 12-19-2021 Cognitive function Voice/Name [facility] Work Phone: 12-18-2021 Cognitive function Awake;Alert;A ppropriate;Fol lows Commands [facility] Work Phone: Clinical Notes 12-19-2021 to 07-03-2025 Telephone Encounter - MITZI Burton CNP - 07/03/2025 12:17 PM EDTTelephone Encounter - MITZI Burton CNP - 07/03/2025 12:17 PM EDTDischarge InstructionsAttachmentsPatient Instructions Note Date & Type Note Facility 07-03-2025 Telephone encounter Note Rx sent. OARRS report reviewed with no discrepancies. CSA needs signed at upcoming appointment on 08/02/2025. Follow up as scheduled. [facility] 07-03-2025 Miscellaneous Notes Rx sent. OARRS report reviewed with no discrepancies. CSA needs signed at upcoming appointment on 08/02/2025. Follow up as scheduled. [facility] 07/26/24 Medication name: clonazePAM (KlonoPIN) Medication dosage: 2mg Monthly quantity needed: 60 How many day supply requestin days Medication route: oral (PO) Medication administration time(s): 2 times a day (BID) If taking medication PRN, reason for taking medication: N/A If this is a controlled substance do you receive this or any other controlled medication from any other doctor or facility: N/A Ordering provider: Dr Duggan Date of last office visit: 01/25/25 Date of next office visit: 08/02/25 Date of last refill: (see medication tab): 06/05/25 Updated/Validated preferred pharmacy: Yes Patient instructed to contact the pharmacy prior to picking up the medication: Yes documented in this encounter [facility] 07-03-2025 Telephone encounter Note [facility] 07/26/24 [facility] 07-03-2025 Telephone encounter Note Medication name: clonazePAM (KlonoPIN) Medication dosage: 2mg Monthly quantity needed: 60 How many day supply requestin days Medication route: oral (PO) Medication administration time(s): 2 times a day (BID) If taking medication PRN, reason for taking medication: N/A If this is a controlled substance do you receive this or any other controlled medication from any other doctor or facility: N/A Ordering provider: Dr Duggan Date of last office visit: 01/25/25 Date of next office visit: 08/02/25 Date of last refill: (see medication tab): 06/05/25 Updated/Validated preferred pharmacy: Yes Patient instructed to contact the pharmacy prior to picking up the medication: Yes [facility] 06-23-2025 Hospital Discharge instructions Alexandro Neville MD - 06/23/2025 6:28 PM EDT Warm compresses or warm soapy soaks. The following attachments cannot be sent through Care Everywhere.Paronychia (Malaysian)documented in this encounter [facility] 06-23-2025 Emergency department Note Associated Order(s): Incision and Drainage EMERGENCY DEPARTMENT ENCOUNTER Pt Name: Jonathan Moise Birthdate 1950 Date of evaluation: 06/23/2025 ED Provider: Alexandro Neville MD CHIEF COMPLAINT Chief Complaint Patient presents with Hand Pain Right index HISTORY OF PRESENT ILLNESS (Location/Symptom, Timing/Onset, Context/Setting, Quality, Duration, Modifying Factors, Severity) Note limiting factors. I wore appropriate PPE for the entirety of this encounter. HPI Christy Moise is a 74 y.o. who presents to the emergency department with chief complaint of finger pain. Patient states that she had similar on her right fifth finger but it opened up and drained some white fluid. Now she has redness swelling and pain around the right second finger. Denies any injury. 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 Nursing Notes were reviewed. Limitations to history: None Outside historians: None REVIEW OF SYSTEMS Review of Systems Pertinent positives and negatives as per HPI. PAST MEDICAL HISTORY Medical History[1] SURGICAL HISTORY Surgical History[2] CURRENT MEDICATIONS Previous Medications ALBUTEROL 108 (90 BASE) MCG/ACT INHALER Inhale 2 puffs every 6 hours as needed for wheezing or shortness of breath. APIXABAN (ELIQUIS) 5 MG TABLET Take 1 tablet (5 mg) by mouth 2 times daily. BUDESONIDE-FORMOTEROL (SYMBICORT) 160-4.5 MCG/ACT INHALER Inhale 2 puffs in the morning and 2 puffs in the evening. Rinse mouth with water after use to reduce aftertaste and incidence of candidiasis. Do not swallow.. CLONAZEPAM (KLONOPIN) 2 MG TABLET Take 1 tablet (2 mg) by mouth 2 times daily as needed for anxiety. METOPROLOL SUCCINATE XL (TOPROL-XL) 100 MG 24 HR TABLET Take 1 tablet (100 mg) by mouth daily. Do not crush or chew. PREGABALIN (LYRICA) 75 MG CAPSULE Take 1 capsule (75 mg) by mouth 2 times daily. ROSUVASTATIN (CRESTOR) 5 MG TABLET Take 1 tablet (5 mg) by mouth daily. ALLERGIES Sertraline, Phenytoin, and Levofloxacin FAMILY HISTORY Family History[3] SOCIAL HISTORY Social History[4] SCREENINGS PHYSICAL EXAM ED Triage Vitals [06/23/25 1746] Temp Heart Rate Resp BP 36.4 C (97.5 F) (!) 108 16 (!) 192/102 SpO2 Temp Source Heart Rate Source Patient Position 95 % Temporal Monitor Sitting BP Location FiO2 (%) Right arm -- General appearance: Well-appearing, no acute distress. Psych: Awake alert and oriented 3. Pleasant and cooperative. Skin: Warm and dry. Neck: Supple. Extremities: Warm and well perfused. NROM and SILT throughout upper and lower extermities. Right second finger there is erythema swelling tenderness around the eponychium of the right second nail plate. Right fifth finger there is a wound that was previously reportedly draining it appears to be well-healing with no secondary findings of infection. Has some deformities to the DIPs of multiple fingers from arthritis. DIAGNOSTIC RESULTS Interpretation per the Radiologist below, if available at the time of this note: No orders to display ED BEDSIDE ULTRASOUND: Performed by ED Physician - none LABS: Labs Reviewed - No data to display All other labs were within normal range or not returned as of this dictation. EMERGENCY DEPARTMENT COURSE and DIFFERENTIAL DIAGNOSIS/MDM: Vitals: Vitals: 06/23/251745 BP: (!) 192/102 BP Location: Right arm Patient Position: Sitting Pulse: (!) 108 Resp: 16 Temp: 36.4 C (97.5 F) TempSrc: Temporal SpO2: 95% Weight: 56.7 kg (125 lb) Height: 1.676 m (5' 6") The patient presented with a chief complaint of finger pain. The differential diagnosis associated with this patient's presentation includes paronychia, arthritis. Attempted a bedside drainage of the paronychia. Directed to use warm compresses and soaks. Diagnoses as of 06/23/251856 Paronychia of finger of right hand ED Medications managed: Medications lidocaine (Xylocaine) 1 % injection 5 mL (5 mL Infiltration Given by Other 06/23/251853) HYDROcodone-acetaminophen (Baxter) 5-325 MG per tablet 1 tablet (1 tablet Oral Given 06/23/251853) sulfamethoxazole-trimethoprim (Bactrim DS) 800-160 MG per tablet 1 tablet (1 tablet Oral Given 06/23/251853) CRITICAL CARE TIME CONSULTS: None PROCEDURES: Unless otherwise noted below, none Incision and Drainage Performed by: Alexandro Neville MD Authorized by: Alexandro Neville MD Consent: The indications, risks, benefits, alternatives to the procedure were explained to the patient/surrogate decision maker and their questions answered. Consent was obtained to proceed with the procedure. Timeout: Completed immediately prior to the start of the procedure which included verification of the correct patient, correct site and agreement on the procedure to be done. Indications: Indications: abscess Anesthetic: Local anesthetic used: lidocaine without epinephrine Preparation: Patient was prepped and draped in usual sterile fashion Skin prepped: skin prepped with alcohol Procedure Details: Procedure Type: abscess Location 1: R index finger Complexity: simple Incision types: stab incision Incision depth: subcutaneous Procedure comments: Attempted to open with the blunt end of the scalpel handle for a paronychia and then made a small incision with small amount of purulent drainage Flexor tendon block performed for anesthesia. Identified landmarks negative aspiration incremental injection with complete anesthesia of the finger Post-procedure: Wound treatment: wound left open Drainage: bloody and purulent Drainage amount: scant Estimated blood loss: none Specify Complication(s): no apparent complications FINAL IMPRESSION 1. Paronychia of finger of right hand DISPOSITION Discharge 06/23/2025 06:48:59 PM PATIENT REFERRED TO: Adarsh Duggan MD [address] [place] [address], [place] [address] Schedule an appointment as soon as possible for a visit [facility] [address] [place] [address] If symptoms worsen DISCHARGE MEDICATIONS: New Prescriptions HYDROCODONE-ACETAMINOPHEN (NORCO) 5-325 MG TABLET Take 1 tablet by mouth every 6 hours as needed for severe pain (7-10) for up to 5 days. SULFAMETHOXAZOLE-TRIMETHOPRIM (BACTRIM DS) 800-160 MG TABLET Take 1 tablet by mouth 2 times daily for 5 days. (Comment: Please note this report has been produced using speech recognition software and may contain errors related to that system including errors in grammar, punctuation, and spelling, as well as words and phrases that may be inappropriate. If there are any questions or concerns please feel free to contact the dictating provider for clarification.) Alexandro Neville MD (electronically signed) Emergency Medicine Provider [1] Past Medical History: Diagnosis Date Anemia COPD (chronic obstructive pulmonary disease) (HCC) Coronary artery disease, non-occlusive GERD (gastroesophageal reflux disease) Hypertension Myoclonic disorder Thyroid nodule [2] Past Surgical History: Procedure Laterality Date CARDIAC SURGERY cath CARDIAC SURGERY 12/2021 CYST REMOVAL Right Breast THYROID LOBECTOMY Left THYROIDECTOMY TONSILLECTOMY TOTAL ABDOMINAL HYSTERECTOMY Cervix removed [3] Family History Problem Relation Name Age of Onset High Blood Pressure Mother Stroke Mother Heart disease Mother Cancer Father Cancer Other Paternal Uncle Colon cancer Other Paternal Uncle Other cancer Other Father fam hx Throat CA, colon and leukemia [4] Social History Socioeconomic History Marital status: Tobacco Use Smoking status: Every Day Current packs/day: 1.00 Average packs/day: 1 pack/day for 40.0 years (40.0 ttl pk-yrs) Types: Cigarettes Smokeless tobacco: Never Vaping Use Vaping status: Never Used Substance and Sexual Activity Alcohol use: Not Currently Drug use: Not Currently Sexual activity: Not Currently Social Drivers of Health Financial Resource Strain: Low Risk (07/26/2024) Overall Financial Resource Strain (CARDIA) Difficulty of Paying Living Expenses: Not very hard Food Insecurity: No Food Insecurity (07/26/2024) Hunger Vital Sign Worried About Running Out of Food in the Last Year: Never true Ran Out of Food in the Last Year: Never true Transportation Needs: No Transportation Needs (07/26/2024) PRAPARE - Transportation Lack of Transportation (Medical): No Lack of Transportation (Non-Medical): No Physical Activity: Inactive (07/26/2024) Exercise Vital Sign Days of Exercise per Week: 0 days Minutes of Exercise per Session: 0 min Stress: Stress Concern Present (07/26/2024) [place] [employer] - Occupational Stress Questionnaire Feeling of Stress : Rather much Social Connections: Moderately Integrated (07/26/2024) Social Connection and Isolation Panel [NHANES] Frequency of Communication with Friends and Family: More than three times a week Frequency of Social Gatherings with Friends and Family: Never Attends Orthodox Services: More than 4 times per year Active Member of Clubs or Organizations: No Attends Club or Organization Meetings: Never Marital Status: Intimate Partner Violence: Not At Risk (07/26/2024) Humiliation, Afraid, Rape, and Kick questionnaire Fear of Current or Ex-Partner: No Emotionally Abused: No Physically Abused: No Sexually Abused: No Housing Stability: Low Risk (07/26/2024) Housing Stability Vital Sign Unable to Pay for Housing in the Last Year: No Number of Times Moved in the Last Year: 1 Homeless in the Last Year: No Alexandro Neville MD 06/23/25 190 Patient arrived ambulatory to room 5 without difficulty. Patient complains of pain in right index finger for the past couple of days. Patient denies any injury to finger. documented in this encounter [facility] 06-23-2025 Emergency department Triage note Patient arrived ambulatory to room 5 without difficulty. Patient complains of pain in right index finger for the past couple of days. Patient denies any injury to finger. [facility] 06-23-2025 Physician Emergency department Note Associated Order(s): Incision and Drainage EMERGENCY DEPARTMENT ENCOUNTER Pt Name: Jonathan Moise Birthdate 1950 Date of evaluation: 06/23/2025 ED Provider: Alexandro Neville MD CHIEF COMPLAINT Chief Complaint Patient presents with Hand Pain Right index HISTORY OF PRESENT ILLNESS (Location/Symptom, Timing/Onset, Context/Setting, Quality, Duration, Modifying Factors, Severity) Note limiting factors. I wore appropriate PPE for the entirety of this encounter. HPI Christy Moise is a 74 y.o. who presents to the emergency department with chief complaint of finger pain. Patient states that she had similar on her right fifth finger but it opened up and drained some white fluid. Now she has redness swelling and pain around the right second finger. Denies any injury. 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 Nursing Notes were reviewed. Limitations to history: None Outside historians: None REVIEW OF SYSTEMS Review of Systems Pertinent positives and negatives as per HPI. PAST MEDICAL HISTORY Medical History[1] SURGICAL HISTORY Surgical History[2] CURRENT MEDICATIONS Previous Medications ALBUTEROL 108 (90 BASE) MCG/ACT INHALER Inhale 2 puffs every 6 hours as needed for wheezing or shortness of breath. APIXABAN (ELIQUIS) 5 MG TABLET Take 1 tablet (5 mg) by mouth 2 times daily. BUDESONIDE-FORMOTEROL (SYMBICORT) 160-4.5 MCG/ACT INHALER Inhale 2 puffs in the morning and 2 puffs in the evening. Rinse mouth with water after use to reduce aftertaste and incidence of candidiasis. Do not swallow.. CLONAZEPAM (KLONOPIN) 2 MG TABLET Take 1 tablet (2 mg) by mouth 2 times daily as needed for anxiety. METOPROLOL SUCCINATE XL (TOPROL-XL) 100 MG 24 HR TABLET Take 1 tablet (100 mg) by mouth daily. Do not crush or chew. PREGABALIN (LYRICA) 75 MG CAPSULE Take 1 capsule (75 mg) by mouth 2 times daily. ROSUVASTATIN (CRESTOR) 5 MG TABLET Take 1 tablet (5 mg) by mouth daily. ALLERGIES Sertraline, Phenytoin, and Levofloxacin FAMILY HISTORY Family History[3] SOCIAL HISTORY Social History[4] SCREENINGS PHYSICAL EXAM ED Triage Vitals [06/23/251745] Temp Heart Rate Resp BP 36.4 C (97.5 F) (!) 108 16 (!) 192/102 SpO2 Temp Source Heart Rate Source Patient Position 95 % Temporal Monitor Sitting BP Location FiO2 (%) Right arm -- General appearance: Well-appearing, no acute distress. Psych: Awake alert and oriented 3. Pleasant and cooperative. Skin: Warm and dry. Neck: Supple. Extremities: Warm and well perfused. NROM and SILT throughout upper and lower extermities. Right second finger there is erythema swelling tenderness around the eponychium of the right second nail plate. Right fifth finger there is a wound that was previously reportedly draining it appears to be well-healing with no secondary findings of infection. Has some deformities to the DIPs of multiple fingers from arthritis. DIAGNOSTIC RESULTS Interpretation per the Radiologist below, if available at the time of this note: No orders to display ED BEDSIDE ULTRASOUND: Performed by ED Physician - none LABS: Labs Reviewed - No data to display All other labs were within normal range or not returned as of this dictation. EMERGENCY DEPARTMENT COURSE and DIFFERENTIAL DIAGNOSIS/MDM: Vitals: Vitals: 06/23/251745 BP: (!) 192/102 BP Location: Right arm Patient Position: Sitting Pulse: (!) 108 Resp: 16 Temp: 36.4 C (97.5 F) TempSrc: Temporal SpO2: 95% Weight: 56.7 kg (125 lb) Height: 1.676 m (5' 6") The patient presented with a chief complaint of finger pain. The differential diagnosis associated with this patient's presentation includes paronychia, arthritis. Attempted a bedside drainage of the paronychia. Directed to use warm compresses and soaks. Diagnoses as of 06/23/251856 Paronychia of finger of right hand ED Medications managed: Medications lidocaine (Xylocaine) 1 % injection 5 mL (5 mL Infiltration Given by Other 06/23/251853) HYDROcodone-acetaminophen (Baxter) 5-325 MG per tablet 1 tablet (1 tablet Oral Given 06/23/251853) sulfamethoxazole-trimethoprim (Bactrim DS) 800-160 MG per tablet 1 tablet (1 tablet Oral Given 06/23/254) CRITICAL CARE TIME CONSULTS: None PROCEDURES: Unless otherwise noted below, none Incision and Drainage Performed by: Alexandro Neville MD Authorized by: Alexandro Neville MD Consent: The indications, risks, benefits, alternatives to the procedure were explained to the patient/surrogate decision maker and their questions answered. Consent was obtained to proceed with the procedure. Timeout: Completed immediately prior to the start of the procedure which included verification of the correct patient, correct site and agreement on the procedure to be done. Indications: Indications: abscess Anesthetic: Local anesthetic used: lidocaine without epinephrine Preparation: Patient was prepped and draped in usual sterile fashion Skin prepped: skin prepped with alcohol Procedure Details: Procedure Type: abscess Location 1: R index finger Complexity: simple Incision types: stab incision Incision depth: subcutaneous Procedure comments: Attempted to open with the blunt end of the scalpel handle for a paronychia and then made a small incision with small amount of purulent drainage Flexor tendon block performed for anesthesia. Identified landmarks negative aspiration incremental injection with complete anesthesia of the finger Post-procedure: Wound treatment: wound left open Drainage: bloody and purulent Drainage amount: scant Estimated blood loss: none Specify Complication(s): no apparent complications FINAL IMPRESSION 1. Paronychia of finger of right hand DISPOSITION Discharge 06/23/2025 06:48:59 PM PATIENT REFERRED TO: Adarsh Duggan MD [address] [place] [address], [address] [facility] [address] Schedule an appointment as soon as possible for a visit [facility] [address] [facility] [phone] If symptoms worsen DISCHARGE MEDICATIONS: New Prescriptions HYDROCODONE-ACETAMINOPHEN (NORCO) 5-325 MG TABLET Take 1 tablet by mouth every 6 hours as needed for severe pain (7-10) for up to 5 days. SULFAMETHOXAZOLE-TRIMETHOPRIM (BACTRIM DS) 800-160 MG TABLET Take 1 tablet by mouth 2 times daily for 5 days. (Comment: Please note this report has been produced using speech recognition software and may contain errors related to that system including errors in grammar, punctuation, and spelling, as well as words and phrases that may be inappropriate. If there are any questions or concerns please feel free to contact the dictating provider for clarification.) Alexandro Neville MD (electronically signed) Emergency Medicine Provider [1] Past Medical History: Diagnosis Date Anemia COPD (chronic obstructive pulmonary disease) (HCC) Coronary artery disease, non-occlusive GERD (gastroesophageal reflux disease) Hypertension Myoclonic disorder Thyroid nodule [2] Past Surgical History: Procedure Laterality Date CARDIAC SURGERY cath CARDIAC SURGERY 12/2021 CYST REMOVAL Right Breast THYROID LOBECTOMY Left THYROIDECTOMY TONSILLECTOMY TOTAL ABDOMINAL HYSTERECTOMY Cervix removed [3] Family History Problem Relation Name Age of Onset High Blood Pressure Mother Stroke Mother Heart disease Mother Cancer Father Cancer Other Paternal Uncle Colon cancer Other Paternal Uncle Other cancer Other Father fam hx Throat CA, colon and leukemia [4] Social History Socioeconomic History Marital status: Tobacco Use Smoking status: Every Day Current packs/day: 1.00 Average packs/day: 1 pack/day for 40.0 years (40.0 ttl pk-yrs) Types: Cigarettes Smokeless tobacco: Never Vaping Use Vaping status: Never Used Substance and Sexual Activity Alcohol use: Not Currently Drug use: Not Currently Sexual activity: Not Currently Social Drivers of Health Financial Resource Strain: Low Risk (07/26/2024) Overall Financial Resource Strain (CARDIA) Difficulty of Paying Living Expenses: Not very hard Food Insecurity: No Food Insecurity (07/26/2024) Hunger Vital Sign Worried About Running Out of Food in the Last Year: Never true Ran Out of Food in the Last Year: Never true Transportation Needs: No Transportation Needs (07/26/2024) PRAPARE - Transportation Lack of Transportation (Medical): No Lack of Transportation (Non-Medical): No Physical Activity: Inactive (07/26/2024) Exercise Vital Sign Days of Exercise per Week: 0 days Minutes of Exercise per Session: 0 min Stress: Stress Concern Present (07/26/2024) [place] [facility] Occupational [employer] - Occupational Stress Questionnaire Feeling of Stress : Rather much Social Connections: Moderately Integrated (07/26/2024) Social Connection and Isolation Panel [NHANES] Frequency of Communication with Friends and Family: More than three times a week Frequency of Social Gatherings with Friends and Family: Never Attends Orthodox Services: More than 4 times per year Active Member of Clubs or Organizations: No Attends Club or Organization Meetings: Never Marital Status: Intimate Partner Violence: Not At Risk (07/26/2024) Humiliation, Afraid, Rape, and Kick questionnaire Fear of Current or Ex-Partner: No Emotionally Abused: No Physically Abused: No Sexually Abused: No Housing Stability: Low Risk (07/26/2024) Housing Stability Vital Sign Unable to Pay for Housing in the Last Year: No Number of Times Moved in the Last Year: 1 Homeless in the Last Year: No Alexandro Neville MD 06/23/25 190 [facility] 06-14-2025 Telephone encounter Note Rx sent. OARRS report reviewed with no discrepancies. CSA signed in March 2025. Follow up as scheduled. [facility] 06-14-2025 Miscellaneous Notes Rx sent. OARRS report reviewed with no discrepancies. CSA signed in March 2025. Follow up as scheduled. 04/13/25 CSMA Medication name: pregabalin (Lyrica) 75 MG capsule Medication dosage: 75 mg (Miligrams Monthly quantity needed: 60 How many day supply requestin days Medication route: oral (PO) Medication administration time(s): 2 times a day (BID) If taking medication PRN, reason for taking medication: N/A If this is a controlled substance do you receive this or any other controlled medication from any other doctor or facility: No Ordering provider: Deana Oh Date of last office visit: 01.25.25 Date of next office visit: 08.02.25 Date of last refill: (see medication tab): 05.16.25 Updated/Validated preferred pharmacy: Yes Patient instructed to contact the pharmacy prior to picking up the medication: No documented in this encounter [facility] 06-13-2025 Telephone encounter Note 04/13/25 CSMA [facility] 06-12-2025 Telephone encounter Note Medication name: pregabalin (Lyrica) 75 MG capsule Medication dosage: 75 mg (Miligrams Monthly quantity needed: 60 How many day supply requestin days Medication route: oral (PO) Medication administration time(s): 2 times a day (BID) If taking medication PRN, reason for taking medication: N/A If this is a controlled substance do you receive this or any other controlled medication from any other doctor or facility: No Ordering provider: Deana Oh Date of last office visit: 01.25.25 Date of next office visit: 08.02.25 Date of last refill: (see medication tab): 05.16.25 Updated/Validated preferred pharmacy: Yes Patient instructed to contact the pharmacy prior to picking up the medication: No [facility] 06-05-2025 Telephone encounter Note Reviewed chart. Refill appropriate. RX sent. [facility] 06-05-2025 Miscellaneous Notes Reviewed chart. Refill appropriate. RX sent. [facility]sa 07/26/24 Medication name: clonazePAM (KlonoPIN) 2 MG tablet -- Take 1 tablet (2 mg) by mouth 2 times daily as needed for anxiety. Do not start before May 08, 2025. -- 30 days Medication dosage: 2 mg (Miligrams Monthly quantity needed: 60 How many day supply requestin days Medication route: oral (PO) Medication administration time(s): 2 times a day (BID) If taking medication PRN, reason for taking medication: Take 1 tablet (2 mg) by mouth 2 times daily as needed for anxiety. Do not start before May 08, 2025. If this is a controlled substance do you receive this or any other controlled medication from any other doctor or facility: Yes Ordering provider: Dr. Duggan Date of last office visit: 01-25-2025 Date of next office visit: Date of last refill: (see medication tab): 05-08-2025 Updated/Validated preferred pharmacy: Yes Patient instructed to contact the pharmacy prior to picking up the medication: Yes documented in this encounter [facility] 06-05-2025 Telephone encounter Note Csa 07/26/24 [facility] 06-05-2025 Telephone encounter Note Medication name: clonazePAM (KlonoPIN) 2 MG tablet -- Take 1 tablet (2 mg) by mouth 2 times daily as needed for anxiety. Do not start before May 08, 2025. -- 30 days Medication dosage: 2 mg (Miligrams Monthly quantity needed: 60 How many day supply requestin days Medication route: oral (PO) Medication administration time(s): 2 times a day (BID) If taking medication PRN, reason for taking medication: Take 1 tablet (2 mg) by mouth 2 times daily as needed for anxiety. Do not start before May 08, 2025. If this is a controlled substance do you receive this or any other controlled medication from any other doctor or facility: Yes Ordering provider: Dr. Duggan Date of last office visit: 01-25-2025 Date of next office visit: Date of last refill: (see medication tab): 05-08-2025 Updated/Validated preferred pharmacy: Yes Patient instructed to contact the pharmacy prior to picking up the medication: Yes [facility] 05-16-2025 Telephone encounter Note Reviewed chart. Refill appropriate. RX sent. [facility] 05-16-2025 Miscellaneous Notes Reviewed chart. Refill appropriate. RX sent. [facility] 04/13/25 Medication name: pregabalin (Lyrica) capsule Medication dosage: 75 mg (Miligrams Monthly quantity needed: 60 How many day supply requestin days Medication route: oral (PO) Medication administration time(s): 2 times a day (BID) If taking medication PRN, reason for taking medication: N/A If this is a controlled substance do you receive this or any other controlled medication from any other doctor or facility: No Ordering provider: Olga Lidia Date of last office visit: 01.25.2025 Date of next office visit: 08.02.2025 Date of last refill: (see medication tab): 04.12.2025 Updated/Validated preferred pharmacy: Yes Patient instructed to contact the pharmacy prior to picking up the medication: Yes documented in this encounter [facility] 05-16-2025 Telephone encounter Note Csa 04/13/25 [facility] 05-12-2025 Telephone encounter Note Medication name: pregabalin (Lyrica) capsule Medication dosage: 75 mg (Miligrams Monthly quantity needed: 60 How many day supply requestin days Medication route: oral (PO) Medication administration time(s): 2 times a day (BID) If taking medication PRN, reason for taking medication: N/A If this is a controlled substance do you receive this or any other controlled medication from any other doctor or facility: No Ordering provider: Olga Lidia Date of last office visit: 01.25.2025 Date of next office visit: 08.02.2025 Date of last refill: (see medication tab): 04.12.2025 Updated/Validated preferred pharmacy: Yes Patient instructed to contact the pharmacy prior to picking up the medication: Yes [facility] 04-10-2025 Telephone encounter Note Noted in appt [facility] 04-10-2025 Miscellaneous Notes Noted in appt Rx sent. OARRS report reviewed with no discrepancies. CSA will need signed at upcoming appointment in July. Follow up as scheduled. Medication name: clonazePAM (KlonoPIN) 2 MG tablet Medication dosage: 2 mg (Miligrams Monthly quantity needed: 60 How many day supply requestin days Medication route: oral (PO) Medication administration time(s): 2 times a day (BID) If taking medication PRN, reason for taking medication: anxiety If this is a controlled substance do you receive this or any other controlled medication from any other doctor or facility: N/A Ordering provider: olga lidia Date of last office visit: 01/25/2025 Date of next office visit: 08/02/2025 Date of last refill: (see medication tab): 03.09.25 Updated/Validated preferred pharmacy: Yes Patient instructed to contact the pharmacy prior to picking up the medication: N/A documented in this encounter [facility] 04-07-2025 Telephone encounter Note Rx sent. OARRS report reviewed with no discrepancies. CSA will need signed at upcoming appointment in July. Follow up as scheduled. [facility] 04-06-2025 Telephone encounter Note Medication name: clonazePAM (KlonoPIN) 2 MG tablet Medication dosage: 2 mg (Miligrams Monthly quantity needed: 60 How many day supply requestin days Medication route: oral (PO) Medication administration time(s): 2 times a day (BID) If taking medication PRN, reason for taking medication: anxiety If this is a controlled substance do you receive this or any other controlled medication from any other doctor or facility: N/A Ordering provider: olga lidia Date of last office visit: 01/25/2025 Date of next office visit: 08/02/2025 Date of last refill: (see medication tab): 6.26.25 Updated/Validated preferred pharmacy: Yes Patient instructed to contact the pharmacy prior to picking up the medication: N/A [facility] 01-25-2025 Evaluation + Plan note Associated Problem(s): Pure hypercholesterolemia Controlled, continue rosuvastatin 5 mg daily [facility] 01-25-2025 Evaluation + Plan note Associated Problem(s): Cigarette smoker Discussed smoking cessation she says she is trying to quit however she gives no indication she is working hard at it. [facility] 01-25-2025 Evaluation + Plan note Associated Problem(s): Depressive disorder Partial remission currently on no medication [facility] 01-25-2025 Evaluation + Plan note Associated Problem(s): Anxiety Partial remission, continue clonazepam 2 mg twice a day as needed [facility] 01-25-2025 Miscellaneous Notes Associated Problem(s): Pure hypercholesterolemia Controlled, continue rosuvastatin 5 mg daily Associated Problem(s): Cigarette smoker Discussed smoking cessation she says she is trying to quit however she gives no indication she is working hard at it. Associated Problem(s): Depressive disorder Partial remission currently on no medication Associated Problem(s): Anxiety Partial remission, continue clonazepam 2 mg twice a day as needed Associated Problem(s): Ganglion cyst of wrist, left Currently this is not bothering her enough that she wants to have anything done with it she will keep a watch on it and if it gets worse or becomes more painful she will let me know and we will send her to a hand surgeon. Associated Problem(s): Fibromyalgia Stable, continue Lyrica 75 mg twice a day Associated Problem(s): Paroxysmal atrial fibrillation (HCC) Stable, continue Eliquis 5 mg twice a day and metoprolol 100 mg daily for rate control. Associated Problem(s): Essential hypertension Initially elevated, recheck was normal continue metoprolol 100 mg daily Associated Problem(s): Coronary artery disease involving navajo coronary artery of navajo heart without angina pectoris Stable, no recent angina continue metoprolol 100 mg daily, rosuvastatin 5 mg daily Associated Problem(s): Chronic obstructive pulmonary disease (HCC) Stable, continue Symbicort 160-4.52 puffs daily and albuterol as needed. Associated Problem(s): Neuropathy Stable, continue Lyrica 75 mg twice a day documented in this encounter [facility] 01-25-2025 Evaluation + Plan note Associated Problem(s): Ganglion cyst of wrist, left Currently this is not bothering her enough that she wants to have anything done with it she will keep a watch on it and if it gets worse or becomes more painful she will let me know and we will send her to a hand surgeon. [facility] 01-25-2025 Evaluation + Plan note Associated Problem(s): Fibromyalgia Stable, continue Lyrica 75 mg twice a day [facility] 01-25-2025 Evaluation + Plan note Associated Problem(s): Paroxysmal atrial fibrillation (HCC) Stable, continue Eliquis 5 mg twice a day and metoprolol 100 mg daily for rate control. [facility] 01-25-2025 Evaluation + Plan note Associated Problem(s): Essential hypertension Initially elevated, recheck was normal continue metoprolol 100 mg daily [facility] 01-25-2025 Evaluation + Plan note Associated Problem(s): Coronary artery disease involving navajo coronary artery of navajo heart without angina pectoris Stable, no recent angina continue metoprolol 100 mg daily, rosuvastatin 5 mg daily [facility] 01-25-2025 Evaluation + Plan note Associated Problem(s): Chronic obstructive pulmonary disease (HCC) Stable, continue Symbicort 160-4.52 puffs daily and albuterol as needed. T [facility] 01-25-2025 Evaluation + Plan note Associated Problem(s): Neuropathy Stable, continue Lyrica 75 mg twice a day T [facility] 01-25-2025 History of Present illness Narrative Images from the original note were not included. 01/25/2025 Jonathan Moise (: 1950) is a 74 y.o. female , Established patient, here for evaluation of the following chief complaint(s): Medication Check, Health Maintenance (CRCS- declines /Mammo- declines ), Anxiety, Depression, COPD, Coronary Artery Disease, and Atrial Fibrillation ASSESSMENT/PLAN: 1. Chronic obstructive pulmonary disease, unspecified COPD type (HCC) Assessment & Plan: Stable, continue Symbicort 160-4.52 puffs daily and albuterol as needed. 2. Paroxysmal atrial fibrillation (HCC) Assessment & Plan: Stable, continue Eliquis 5 mg twice a day and metoprolol 100 mg daily for rate control. 3. 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 Neuropathy Assessment & Plan: Stable, continue Lyrica 75 mg twice a day 5. Essential hypertension Assessment & Plan: Initially elevated, recheck was normal continue metoprolol 100 mg daily 6. Fibromyalgia Assessment & Plan: Stable, continue Lyrica 75 mg twice a day 7. Cigarette smoker Assessment & Plan: Discussed smoking cessation she says she is trying to quit however she gives no indication she is working hard at it. 8. Anxiety Assessment & Plan: Partial remission, continue clonazepam 2 mg twice a day as needed 9. Pure hypercholesterolemia Assessment & Plan: Controlled, continue rosuvastatin 5 mg daily 10. Ganglion cyst of wrist, left Assessment & Plan: Currently this is not bothering her enough that she wants to have anything done with it she will keep a watch on it and if it gets worse or becomes more painful she will let me know and we will send her to a hand surgeon. 11. Depressive disorder Assessment & Plan: Partial remission currently on no medication Follow up in about 6 months (around 07/28/2025). SUBJECTIVE/OBJECTIVE: RAI Christophe comes in today for 6-month follow-up on her COPD, atrial fibrillation, knees both seem to be stable. She has coronary disease but she has had no recent angina. Blood pressure is slightly elevated today we will recheck that prior to discharge. She has a history of neuropathy and fibromyalgia for which she takes Lyrica. She has a history of depression and anxiety but she is not on any depression medicine but does take clonazepam regularly. She has hypercholesterolemia and she continues to smoke and gives no indication she is ready to quit. Her only real complaint today is that she has this lump on her left wrist on the volar surface and its tender to touch at times and she says it just recently popped up. Review of Systems Constitutional: Negative for chills and fever. Respiratory: Negative for shortness of breath. Cardiovascular: Negative for chest pain and palpitations. Gastrointestinal: Negative for abdominal pain, blood in stool, constipation and diarrhea. Genitourinary: Negative for dysuria, frequency, hematuria and urgency. Neurological: Negative for weakness and numbness. Psychiatric/Behavioral: Negative for dysphoric mood. The patient is not nervous/anxious. Vitals: 01/25/25 1320 01/25/25 1341 BP: (!) 174/86 103/61 BP Location: Left arm Left arm Patient Position: Sitting Sitting Pulse: 84 82 SpO2: 94% Weight: 125 lb 6.4 oz (56.9 kg) Height: 5' 6" (1.676 m) Physical Exam Vitals and nursing note reviewed. Constitutional: General: She is not in acute distress. Appearance: Normal appearance. HENT: Head: Normocephalic. Right Ear: Tympanic membrane, ear canal and external ear normal. Left Ear: Tympanic membrane, ear canal and external ear normal. Mouth/Throat: Mouth: Mucous membranes are moist. Pharynx: Oropharynx is clear. Eyes: Extraocular Movements: Extraocular movements intact. Pupils: Pupils are equal, round, and reactive to light. Neck: Thyroid: No thyromegaly. Vascular: No carotid bruit. Cardiovascular: Rate and Rhythm: Normal rate. Rhythm irregularly irregular. Heart sounds: Normal heart sounds. No murmur heard. Pulmonary: Effort: Pulmonary effort is normal. Breath sounds: Normal breath sounds. Abdominal: General: Bowel sounds are normal. Palpations: Abdomen is soft. Musculoskeletal: General: Normal range of motion. Cervical back: Normal range of motion. Comments: Left wrist with a cystic lesion that is approximately 2 cm in length and 8 mm in width on the volar surface and slightly tender to touch. Lymphadenopathy: Cervical: No cervical adenopathy. Skin: General: Skin is warm and dry. Neurological: General: No focal deficit present. Mental Status: She is alert and oriented to person, place, and time. Psychiatric: Mood and Affect: Mood normal. An electronic signature was used to authenticate this note. Adarsh Duggan MD 01/25/2025 2:10 PM documented in this encounter [facility] 10-26-2024 Telephone encounter Note Reviewed chart. Refill appropriate. RX sent. [facility] 10-26-2024 Miscellaneous Notes Reviewed chart. Refill appropriate. RX sent. CSA Lyrica 02/26/24 RFP Medication name: pregabalin (Lyrica) 75 MG capsule Medication dosage: 75 mg (Miligrams Monthly quantity needed: 60 How many day supply requestin days Medication route: oral (PO) Medication administration time(s): 2 times a day (BID) If taking medication PRN, reason for taking medication: N/A If this is a controlled substance do you receive this or any other controlled medication from any other doctor or facility: N/A Ordering provider: Deana Oh Date of last office visit: 07.26.24 Date of next office visit: 01.25.25 Date of last refill: (see medication tab): 09.26.24 Updated/Validated preferred pharmacy: Yes Patient instructed to contact the pharmacy prior to picking up the medication: No documented in this encounter [facility] 10-26-2024 Telephone encounter Note CSA Lyrica 02/26/24 RFP [facility] 10-26-2024 Telephone encounter Note Medication name: pregabalin (Lyrica) 75 MG capsule Medication dosage: 75 mg (Miligrams Monthly quantity needed: 60 How many day supply requestin days Medication route: oral (PO) Medication administration time(s): 2 times a day (BID) If taking medication PRN, reason for taking medication: N/A If this is a controlled substance do you receive this or any other controlled medication from any other doctor or facility: N/A Ordering provider: Deana Oh Date of last office visit: 07.26.24 Date of next office visit: 01.25.25 Date of last refill: (see medication tab): 09.26.24 Updated/Validated preferred pharmacy: Yes Patient instructed to contact the pharmacy prior to picking up the medication: No [facility] 10-20-2024 Telephone encounter Note error [facility] 10-20-2024 Miscellaneous Notes error documented in this encounter [facility] 09-26-2024 Telephone encounter Note Reviewed chart. Refill appropriate. RX sent. [facility] 09-26-2024 Miscellaneous Notes Reviewed chart. Refill appropriate. RX sent. CSA 02/26/24 Medication name: pregabalin (Lyrica) Medication dosage: 75 mg (Miligrams Monthly quantity needed: 60 How many day supply requestin days Medication route: oral (PO) Medication administration time(s): 2 times a day (BID) If taking medication PRN, reason for taking medication: N/A If this is a controlled substance do you receive this or any other controlled medication from any other doctor or facility: No Ordering provider: Olga Lidia Date of last office visit: 07/26/24 Date of next office visit: 01/25/25 Date of last refill: (see medication tab): 08/30/24 Updated/Validated preferred pharmacy: Yes Patient instructed to contact the pharmacy prior to picking up the medication: Yes documented in this encounter [facility] 09-26-2024 Telephone encounter Note CSA 02/26/24 [facility] 09-26-2024 Telephone encounter Note Medication name: pregabalin (Lyrica) Medication dosage: 75 mg (Miligrams Monthly quantity needed: 60 How many day supply requestin days Medication route: oral (PO) Medication administration time(s): 2 times a day (BID) If taking medication PRN, reason for taking medication: N/A If this is a controlled substance do you receive this or any other controlled medication from any other doctor or facility: No Ordering provider: Olga Lidia Date of last office visit: 07/26/24 Date of next office visit: 01/25/25 Date of last refill: (see medication tab): 08/30/24 Updated/Validated preferred pharmacy: Yes Patient instructed to contact the pharmacy prior to picking up the medication: Yes [facility] 07-26-2024 Evaluation + Plan note Associated Problem(s): Pure hypercholesterolemia Control unknown, currently off of her medications [facility] 07-26-2024 Miscellaneous Notes Associated Problem(s): Pure hypercholesterolemia Control unknown, currently off of her medications Associated Problem(s): Cigarette smoker Discussed smoking cessation gives no indication she is ready to quit, offered her screening CT scan which she refused. Associated Problem(s): Depressive disorder Partial remission, currently on no medication. Associated Problem(s): Anxiety Currently active, continue clonazepam 2 mg twice a day as needed. Rx sent, OARRS report done, no inconsistencies, CS agreement in place Associated Problem(s): Paroxysmal atrial fibrillation (HCC) Stable, continue Eliquis 5 mg daily and metoprolol 100 mg daily Associated Problem(s): Coronary artery disease involving navajo coronary artery of navajo heart without angina pectoris Stable, no recent angina Associated Problem(s): Chronic obstructive pulmonary disease (HCC) Stable on Symbicort and albuterol, highly encouraged her to quit smoking. Associated Problem(s): Myoclonic disorder She is having get significant number of tics today documented in this encounter [facility] 07-26-2024 Evaluation + Plan note Associated Problem(s): Cigarette smoker Discussed smoking cessation gives no indication she is ready to quit, offered her screening CT scan which she refused. [facility] 07-26-2024 Evaluation + Plan note Associated Problem(s): Depressive disorder Partial remission, currently on no medication. [facility] 07-26-2024 Evaluation + Plan note Associated Problem(s): Anxiety Currently active, continue clonazepam 2 mg twice a day as needed. Rx sent, OARRS report done, no inconsistencies, CS agreement in place [facility] 07-26-2024 Evaluation + Plan note Associated Problem(s): Paroxysmal atrial fibrillation (HCC) Stable, continue Eliquis 5 mg daily and metoprolol 100 mg daily [facility] 07-26-2024 Evaluation + Plan note Associated Problem(s): Coronary artery disease involving navajo coronary artery of navajo heart without angina pectoris Stable, no recent angina [facility] 07-26-2024 Evaluation + Plan note Associated Problem(s): Chronic obstructive pulmonary disease (HCC) Stable on Symbicort and albuterol, highly encouraged her to quit smoking. [facility] 07-26-2024 Evaluation + Plan note Associated Problem(s): Myoclonic disorder She is having get significant number of tics today [facility] 07-26-2024 History of Present illness Narrative Patient verified by last name and date of . Images from the original note were not included. [facility] - [address] [facility] [id number] Visit Type: Medicare Annual Wellness PCP: Adarsh Duggan MD Reason for Visit: Medicare Annual Wellness Visit Subsequent, Blood Work, and Health Maintenance (Colonoscopy- refuse/Hep c screening- refuse/Mammogram- refuse/Shingles vaccine- refuse/Lung cancer screen-agree/Rsv vaccine- not done/Flu vaccine- refuse/3rd covid vaccine- not done) Assessment and Plan Problem List Items Addressed This Visit Cigarette smoker Discussed smoking cessation gives no indication she is ready to quit, offered her screening CT scan which she refused. Relevant Orders CT lung screening low dose Pure hypercholesterolemia Control unknown, currently off of her medications Relevant Orders Lipid panel Anxiety Currently active, continue clonazepam 2 mg twice a day as needed. Rx sent, OARRS report done, no inconsistencies, CS agreement in place Relevant Medications clonazePAM (KlonoPIN) 2 MG tablet Chronic obstructive pulmonary disease (HCC) Stable on Symbicort and albuterol, highly encouraged her to quit smoking. 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 Myoclonic disorder She is having get significant number of tics today Paroxysmal atrial fibrillation (HCC) Stable, continue Eliquis 5 mg daily and metoprolol 100 mg daily Other Visit Diagnoses Medicare annual wellness visit, subsequent - Primary Screening for diabetes mellitus Relevant Orders Comprehensive metabolic panel Influenza vaccine refused I have reviewed and reconciled the medication list with the patient today. Current Outpatient Medications Medication Sig Dispense Refill albuterol 108 (90 Base) MCG/ACT inhaler Inhale 2 puffs every 6 hours as needed for wheezing or shortness of breath. 18 g 2 apixaban (Eliquis) 5 MG tablet Take 1 tablet (5 mg) by mouth 2 times daily. 60 tablet 5 budesonide-formoterol (Symbicort) 160-4.5 MCG/ACT inhaler Inhale 2 puffs in the morning and 2 puffs in the evening. Rinse mouth with water after use to reduce aftertaste and incidence of candidiasis. Do not swallow.. 1 each 2 hydroCHLOROthiazide (HYDRODiuril) 25 MG tablet Take 1 tablet (25 mg) by mouth daily. 90 tablet 1 lisinopril 20 MG tablet Take 1 tablet (20 mg) by mouth daily. 90 tablet 1 metoprolol succinate XL (Toprol-XL) 100 MG 24 hr tablet Take 1 tablet (100 mg) by mouth daily. Do not crush or chew. 90 tablet 1 pregabalin (Lyrica) 75 MG capsule Take 1 capsule (75 mg) by mouth 2 times daily. 60 capsule 0 alendronate (Fosamax) 70 MG tablet Take 1 tablet (70 mg) by mouth every 7 days. Take in the morning with a full glass of water, on an empty stomach, and do not take anything else by mouth or lie down for the next 30 min. (Patient not taking: Reported on 12/23/2023) 4 tablet 11 clonazePAM (KlonoPIN) 2 MG tablet Take 1 tablet (2 mg) by mouth 2 times daily as needed for anxiety. 60 tablet 0 No current facility-administered medications for this visit. Medications Discontinued During This Encounter Medication Reason clonazePAM (KlonoPIN) 2 MG tablet Reorder The following health maintenance schedule was reviewed with the patient and provided in printed form in the after visit summary: Health Maintenance Topic Date Due Colorectal Cancer Screening Never done Diabetes Screening Never done Mammogram Never done Lung Cancer Screening Never done Influenza Vaccine (1) 03/13/2025 (Originally 05/15/2024) RSV Immunization for Adults (1 - Risk 60-74 years 1-dose series) 07/26/2025 (Originally 2011) Zoster Vaccines (1 of 2) 07/26/2025 (Originally 2001) Hepatitis C Screening 07/26/2025 (Originally 1969) COVID-19 Vaccine (3 - 2023- season) 2025 (Originally 05/15/2024) Depression Monitoring 01/23/2025 Bone Density Scan 07/07/2025 Lipid Panel 12/31/2027 DTaP/Tdap/Td Vaccines (3 - Td or Tdap) 04/09/2028 Medicare Advantage Annual Wellness Visit Completed Pneumococcal Vaccine: 65+ Years Completed RSV Immunization under 20 Months Aged Out HIB Vaccines Aged Out Hepatitis B Vaccines Aged Out IPV Vaccines Aged Out Hepatitis A Vaccines Aged Out Meningococcal Vaccine Aged Out Rotavirus Vaccines Aged Out HPV Vaccines Aged Out Orders Placed This Encounter Procedures CT lung screening low dose Standing Status: Future Standing Expiration Date: 07/26/2025 Order Specific Question: What is the patient's sedation requirement? Answer: No Sedation Order Specific Question: Does the patient show any signs or symptoms of lung cancer? Answer: No Order Specific Question: Is this the first (baseline) CT or an annual exam? Answer: Annual [2] Order Specific Question: Is there documentation of shared decision making? Answer: Yes Order Specific Question: What is the patient's current smoking status? Answer: Current Smoker [1] Order Specific Question: What is the patient's total pack years? (must be at least 20 pack years) Answer: 40 Lipid panel Standing Status: Future Number of Occurrences: 1 Standing Expiration Date: 07/25/2025 Comprehensive metabolic panel Standing Status: Future Number of Occurrences: 1 Standing Expiration Date: 07/25/2025 Follow up in about 6 months (around 01/23/2025). Erica Harrison comes in today for her annual Medicare well visit, she has a number of health issues but all seem to be fairly stable but she has said she is having some difficulty with anxiety and depression due to some family issues. She says her daughter's of a massive heart attack and he was 60. She also has a history of A-fib which is stable, she does take Eliquis. She has peripheral vascular disease. She has a history of COPD and she uses Symbicort and albuterol. She does continue to smoke. She gives no indication she is ready to quit. She has monoclonal ticks and she has a history of coronary artery disease which is stable she has had no recent angina, she also has hypercholesterolemia and has been stable. List of current healthcare providers: Patient Care Team: Adarsh Duggan MD as PCP - General Over the past 2 weeks, how often have you been bothered by any of the following problems? Trouble falling or staying asleep, or sleeping too much: Nearly every day Feeling tired or having little energy: Several days Poor appetite or overeating: Not at all Feeling bad about yourself - or that you are a failure or have let yourself or your family down: Not at all Trouble concentrating on things, such as reading the newspaper or watching television: Not at all Moving or speaking so slowly that other people could have noticed? Or the opposite - being so fidgety or restless that you have been moving around a lot more than usual.: Nearly every day Thoughts that you would be better off or hurting yourself in some way: Not at all Patient Health Questionnaire-9 Score: 11 Health Risk Assessment: General: General In general, how would you say your health is?: (!) Fair In the past 7 days, have you experienced any of the following: New or Increased Pain, New or Increased Fatigue, Loneliness, Social Isolation, Stress or Anger?: (!) Yes Select all that apply: (!) Stress, New or Increased Pain (arthritis in fingers really bad in the mornings) Do you get the social and emotional suppport you need?: Yes Interventions: Stress: Patient declines any further evaluation / treatment for this issue Health Habits/Nutrition: Health Habits / Nutrition On average, how many days per week do you engage in moderate to strenous exercise (like a brisk walk)?: (!) 0 days On average, how man minutes do you engage in exercise at this level?: (!) 0 min Have you lost any weight without trying in the past 3 months? : No Have you seen the dentist within the past year?: (!) No Interventions: Dental exam overdue: Patient declines dental evaluation and has dentures Hearing/ Vision: Hearing / Vision Do you or your family notice any trouble with your hearing that hasn't been managed with hearing aids?: No Do you have difficulty driving, watching TV, or doing any of your daily activities because of your eyesight?: No Have you had an eye exam within the past year?: (!) No No results found. 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 : Yes Do all your stairways have a railing or banister? : Yes Do you fasten your seatbelt when you are in a car?: Yes (sometimes) ADL: ADL In the past 7 days, did you need help from others to perform any of the following everyday activities: Eating, dressing, grooming,bathing, toileting, or walking / balance? : No In the past 7 days, did you need help from others to take care of any of the following: laundry, housekeeping, banking / finances,shopping, telephone use, food preparation, transportation, or taking medications? : No Living Will: Living Will Do you have a living will?: Yes Cognitive: Cognitive Screening: Mini-Cog Clock Drawing Test (CDT): 2 Words Recalled: 3 Total Score: 5 Total Score Interpretation: Normal Mini-Cog Fall Risk: Fall Risk One or more falls in the last year:: No Advised to use a cane or walker to get around safely:: No Feels unsteady when walking:: No Steadies self on furniture while walking at home:: No Worried about falling:: No Depression Screening: Over the past 2 weeks, how often have you been bothered by any of the following problems? Little interest or pleasure in doing things: More than half the days Feeling down, depressed, or hopeless: More than half the days Patient Health Questionnaire-2 Score: 4 Over the past 2 weeks, how often have you been bothered by any of the following problems? Trouble falling or staying asleep, or sleeping too much: Nearly every day Feeling tired or having little energy: Several days Poor appetite or overeating: Not at all Feeling bad about yourself - or that you are a failure or have let yourself or your family down: Not at all Trouble concentrating on things, such as reading the newspaper or watching television: Not at all Moving or speaking so slowly that other people could have noticed? Or the opposite - being so fidgety or restless that you have been moving around a lot more than usual.: Nearly every day Thoughts that you would be better off or hurting yourself in some way: Not at all Patient Health Questionnaire-9 Score: 11 If you checked off any problems on this questionnaire so far, How difficult have these problems made it for you to do your work, take care of things at home, or get along with other people?: Not difficult at all Interventions: Tobacco Use: Social History Tobacco Use Smoking Status Every Day Current packs/day: 1.00 Average packs/day: 1 pack/day for 40.0 years (40.0 ttl pk-yrs) Types: Cigarettes Smokeless Tobacco Never Alcohol Use: Audit Alcohol Screening Q2: How many drinks containing alcohol do you have on a typical day when you are drinking?: Patient does not drink Review of Systems Constitutional: Negative for chills and fever. Respiratory: Negative for shortness of breath. Cardiovascular: Negative for chest pain and palpitations. Gastrointestinal: Negative for abdominal pain, blood in stool, constipation and diarrhea. Genitourinary: Negative for dyspareunia, dysuria, frequency, hematuria and urgency. Neurological: Negative for weakness and numbness. Psychiatric/Behavioral: Negative for dysphoric mood. The patient is not nervous/anxious. Immunization History Administered Date(s) Administered Influenza, injectable, quadrivalent 08/24/2019 Influenza, seasonal, injectable 07/15/2019 Pfizer SARS-CoV-2 Vaccination 08/06/2021, 08/27/2021 Pneumococcal Conjugate PCV 13 01/06/2017 Pneumococcal Polysaccharide PPSV23 09/17/2020 Tdap 04/09/2016, 04/09/2018 Allergies Allergen Reactions Sertraline Unknown Phenytoin Swelling Levofloxacin Rash Other reaction(s): Rash Outpatient Medications Prior to Visit Medication Sig Dispense Refill albuterol 108 (90 Base) MCG/ACT inhaler Inhale 2 puffs every 6 hours as needed for wheezing or shortness of breath. 18 g 2 apixaban (Eliquis) 5 MG tablet Take 1 tablet (5 mg) by mouth 2 times daily. 60 tablet 5 budesonide-formoterol (Symbicort) 160-4.5 MCG/ACT inhaler Inhale 2 puffs in the morning and 2 puffs in the evening. Rinse mouth with water after use to reduce aftertaste and incidence of candidiasis. Do not swallow.. 1 each 2 hydroCHLOROthiazide (HYDRODiuril) 25 MG tablet Take 1 tablet (25 mg) by mouth daily. 90 tablet 1 lisinopril 20 MG tablet Take 1 tablet (20 mg) by mouth daily. 90 tablet 1 metoprolol succinate XL (Toprol-XL) 100 MG 24 hr tablet Take 1 tablet (100 mg) by mouth daily. Do not crush or chew. 90 tablet 1 pregabalin (Lyrica) 75 MG capsule Take 1 capsule (75 mg) by mouth 2 times daily. 60 capsule 0 clonazePAM (KlonoPIN) 2 MG tablet Take 1 tablet (2 mg) by mouth 2 times daily as needed for anxiety. 60 tablet 0 alendronate (Fosamax) 70 MG tablet Take 1 tablet (70 mg) by mouth every 7 days. Take in the morning with a full glass of water, on an empty stomach, and do not take anything else by mouth or lie down for the next 30 min. (Patient not taking: Reported on 12/23/2023) 4 tablet 11 No facility-administered medications prior to visit. Past Medical History: Diagnosis Date Anemia COPD (chronic obstructive pulmonary disease) (HCC) Coronary artery disease, non-occlusive GERD (gastroesophageal reflux disease) Hypertension Myoclonic disorder Thyroid nodule Social History Socioeconomic History Marital status: Tobacco Use Smoking status: Every Day Current packs/day: 1.00 Average packs/day: 1 pack/day for 40.0 years (40.0 ttl pk-yrs) Types: Cigarettes Smokeless tobacco: Never Substance and Sexual Activity Alcohol use: Not Currently Drug use: Not Currently Sexual activity: Not Currently Social Drivers of Health Financial Resource Strain: Low Risk (07/26/2024) Overall Financial Resource Strain (CARDIA) Difficulty of Paying Living Expenses: Not very hard Food Insecurity: No Food Insecurity (07/26/2024) Hunger Vital Sign Worried About Running Out of Food in the Last Year: Never true Ran Out of Food in the Last Year: Never true Transportation Needs: No Transportation Needs (07/26/2024) PRAPARE - Transportation Lack of Transportation (Medical): No Lack of Transportation (Non-Medical): No Physical Activity: Inactive (07/26/2024) Exercise Vital Sign Days of Exercise per Week: 0 days Minutes of Exercise per Session: 0 min Stress: Stress Concern Present (07/26/2024) [place] [employer] - Occupational Stress Questionnaire Feeling of Stress : Rather much Social Connections: Moderately Integrated (07/26/2024) Social Connection and Isolation Panel [NHANES] Frequency of Communication with Friends and Family: More than three times a week Frequency of Social Gatherings with Friends and Family: Never Attends Orthodox Services: More than 4 times per year Active Member of Clubs or Organizations: No Attends Club or Organization Meetings: Never Marital Status: Intimate Partner Violence: Not At Risk (07/26/2024) Humiliation, Afraid, Rape, and Kick questionnaire Fear of Current or Ex-Partner: No Emotionally Abused: No Physically Abused: No Sexually Abused: No Housing Stability: Low Risk (07/26/2024) Housing Stability Vital Sign Unable to Pay for Housing in the Last Year: No Number of Times Moved in the Last Year: 1 Homeless in the Last Year: No Past Surgical History: Procedure Laterality Date CARDIAC SURGERY cath CARDIAC SURGERY 12/2021 CYST REMOVAL Right Breast THYROID LOBECTOMY Left THYROIDECTOMY TONSILLECTOMY TOTAL ABDOMINAL HYSTERECTOMY Cervix removed Past Surgical History: Procedure Laterality Date CARDIAC SURGERY cath CARDIAC SURGERY 12/2021 CYST REMOVAL Right Breast THYROID LOBECTOMY Left THYROIDECTOMY TONSILLECTOMY TOTAL ABDOMINAL HYSTERECTOMY Cervix removed Family History Problem Relation Name Age of Onset High Blood Pressure Mother Stroke Mother Heart disease Mother Cancer Father Cancer Other Paternal Uncle Colon cancer Other Paternal Uncle Other cancer Other Father fam hx Throat CA, colon and leukemia Objective BP 95/75 Pulse 85 Ht 5' 6" (1.676 m) Wt 128 lb 9.6 oz (58.3 kg) SpO2 96% BMI 20.76 kg/m Physical Exam Vitals and nursing note reviewed. Constitutional: General: She is not in acute distress. Appearance: Normal appearance. HENT: Head: Normocephalic. Right Ear: Tympanic membrane, ear canal and external ear normal. Left Ear: Tympanic membrane, ear canal and external ear normal. Mouth/Throat: Mouth: Mucous membranes are moist. Pharynx: Oropharynx is clear. Eyes: Extraocular Movements: Extraocular movements intact. Pupils: Pupils are equal, round, and reactive to light. Neck: Thyroid: No thyromegaly. Vascular: No carotid bruit. Cardiovascular: Rate and Rhythm: Normal rate and regular rhythm. Heart sounds: Normal heart sounds. No murmur heard. Pulmonary: Effort: Pulmonary effort is normal. Breath sounds: Normal breath sounds. Abdominal: General: Bowel sounds are normal. Palpations: Abdomen is soft. Musculoskeletal: General: Normal range of motion. Cervical back: Normal range of motion. Lymphadenopathy: Cervical: No cervical adenopathy. Skin: General: Skin is warm and dry. Neurological: General: No focal deficit present. Mental Status: She is alert and oriented to person, place, and time. Psychiatric: Mood and Affect: Mood normal. Adarsh Duggan MD 07/26/2024 2:41 PM documented in this encounter [facility] 07-26-2024 Instructions Adarsh Duggan MD - 07/26/2024 2:00 PM EST Number documented in this encounter [facility] 05-12-2024 Telephone encounter Note Reviewed chart. Refill appropriate. RX sent. [facility] 05-12-2024 Miscellaneous Notes Reviewed chart. Refill appropriate. RX sent. [facility] 02/26/24 Medication name: pregabalin (Lyrica) 75 MG capsule Medication dosage: 75 mg (Miligrams Monthly quantity needed: 60 How many day supply requestin days Medication route: oral (PO) Medication administration time(s): 2 times a day (BID) If taking medication PRN, reason for taking medication: N/A If this is a controlled substance do you receive this or any other controlled medication from any other doctor or facility: N/A Ordering provider: Dr. Duggan Date of last office visit: 07/21/23 Date of next office visit: 07/26/24 Date of last refill: (see medication tab): 04/15/24 Updated/Validated preferred pharmacy: Yes Patient instructed to contact the pharmacy prior to picking up the medication: Yes documented in this encounter [facility] 05-12-2024 Telephone encounter Note [facility] 02/26/24 T [facility] 05-12-2024 Telephone encounter Note Medication name: pregabalin (Lyrica) 75 MG capsule Medication dosage: 75 mg (Miligrams Monthly quantity needed: 60 How many day supply requestin days Medication route: oral (PO) Medication administration time(s): 2 times a day (BID) If taking medication PRN, reason for taking medication: N/A If this is a controlled substance do you receive this or any other controlled medication from any other doctor or facility: N/A Ordering provider: Dr. Duggan Date of last office visit: 07/21/23 Date of next office visit: 07/26/24 Date of last refill: (see medication tab): 04/15/24 Updated/Validated preferred pharmacy: Yes Patient instructed to contact the pharmacy prior to picking up the medication: Yes [facility] 05-06-2024 Telephone encounter Note Rx sent, OARRS report done, no inconsistencies, CS agreement in place [facility] 05-06-2024 Miscellaneous Notes Rx sent, OARRS report done, no inconsistencies, CS agreement in place [facility] 07/21/23 Medication name: clonazePAM (KlonoPIN) 2 MG tablet Medication dosage: 2 mg (Miligrams Monthly quantity needed: 60 How many day supply requestin days Medication route: oral (PO) Medication administration time(s): as needed (PRN) If taking medication PRN, reason for taking medication: Anxiety If this is a controlled substance do you receive this or any other controlled medication from any other doctor or facility: No Ordering provider: YUNIEL Duval Date of last office visit: 12/23/2023 Date of next office visit: 07/26/2024 Date of last refill: (see medication tab): 04/08/2024 Updated/Validated preferred pharmacy: Yes Patient instructed to contact the pharmacy prior to picking up the medication: Yes documented in this encounter [facility] 05-05-2024 Telephone encounter Note [facility] 07/21/23 [facility] 05-05-2024 Telephone encounter Note Medication name: clonazePAM (KlonoPIN) 2 MG tablet Medication dosage: 2 mg (Miligrams Monthly quantity needed: 60 How many day supply requestin days Medication route: oral (PO) Medication administration time(s): as needed (PRN) If taking medication PRN, reason for taking medication: Anxiety If this is a controlled substance do you receive this or any other controlled medication from any other doctor or facility: No Ordering provider: YUNIEL Duval Date of last office visit: 12/23/2023 Date of next office visit: 07/26/2024 Date of last refill: (see medication tab): 04/08/2024 Updated/Validated preferred pharmacy: Yes Patient instructed to contact the pharmacy prior to picking up the medication: Yes [facility] 03-11-2024 Telephone encounter Note Rx sent, OARRS report done, no inconsistencies, CS agreement in place [facility] 03-11-2024 Miscellaneous Notes Rx sent, OARRS report done, no inconsistencies, CS agreement in place [facility] 07/21/23 Medication name: clonazePAM (KlonoPIN) Medication dosage: 2mg Monthly quantity needed: 60 How many day supply requestin days Medication route: oral (PO) Medication administration time(s): 2 times a day (BID) If taking medication PRN, reason for taking medication: N/A If this is a controlled substance do you receive this or any other controlled medication from any other doctor or facility: Yes Ordering provider: Dr Duggan Date of last office visit: 12/23/23 Date of next office visit: 07/26/24 Date of last refill: (see medication tab): 02/11/24 Updated/Validated preferred pharmacy: Yes Patient instructed to contact the pharmacy prior to picking up the medication: Yes documented in this encounter [facility] 03-11-2024 Telephone encounter Note CSA 07/21/23 [facility] 03-11-2024 Telephone encounter Note Medication name: clonazePAM (KlonoPIN) Medication dosage: 2mg Monthly quantity needed: 60 How many day supply requestin days Medication route: oral (PO) Medication administration time(s): 2 times a day (BID) If taking medication PRN, reason for taking medication: N/A If this is a controlled substance do you receive this or any other controlled medication from any other doctor or facility: Yes Ordering provider: Dr Duggan Date of last office visit: 12/23/23 Date of next office visit: 07/26/24 Date of last refill: (see medication tab): 02/11/24 Updated/Validated preferred pharmacy: Yes Patient instructed to contact the pharmacy prior to picking up the medication: Yes [facility] 12-23-2023 Evaluation + Plan note Associated Problem(s): Mass of left side of neck Patient very hesitant to have any testing done. With discussion she is okay with having a CBC and ultrasound completed of the left side of the neck to further evaluate. -After visit chart review in care everywhere noted patient had CT of the neck completed in 05/24/2022 for same concern with no significant findings, "noting that a contrast-enhanced CT is much more sensitive for evaluation and recommended if symptoms persist". Patient was scheduled for ultrasound and cbc obtained. Further work up pending results. [facility] 12-23-2023 Miscellaneous Notes Associated Problem(s): Mass of left side of neck Patient very hesitant to have any testing done. With discussion she is okay with having a CBC and ultrasound completed of the left side of the neck to further evaluate. -After visit chart review in care everywhere noted patient had CT of the neck completed in 05/24/2022 for same concern with no significant findings, "noting that a contrast-enhanced CT is much more sensitive for evaluation and recommended if symptoms persist". Patient was scheduled for ultrasound and cbc obtained. Further work up pending results. Associated Problem(s): Essential hypertension Blood pressure elevated. Continue current medications and follow-up as directed Associated Problem(s): Chronic obstructive pulmonary disease (HCC) Continue Symbicort and albuterol and recommend smoking cessation. Suspect mild exacerbation currently however patient declines treatment with oral steroid. No signs or symptoms suggesting need for antibiotic therapy Associated Problem(s): Anxiety Stable. Continue clonazepam 2 mg twice daily as needed. SIERRA MA in place Associated Problem(s): Neuropathy Reviewed OARRS. Consistent with treatment plan. Patient was previously on Lyrica with relief of some of her symptoms. Discussed risks and benefits of medication including increased sedation risk for addiction. SIERRA RASHID obtained. Patient to follow-up as scheduled. documented in this encounter [facility] 12-23-2023 Evaluation + Plan note Associated Problem(s): Essential hypertension Blood pressure elevated. Continue current medications and follow-up as directed [facility] 12-23-2023 Evaluation + Plan note Associated Problem(s): Chronic obstructive pulmonary disease (HCC) Continue Symbicort and albuterol and recommend smoking cessation. Suspect mild exacerbation currently however patient declines treatment with oral steroid. No signs or symptoms suggesting need for antibiotic therapy [facility] 12-23-2023 Evaluation + Plan note Associated Problem(s): Anxiety Stable. Continue clonazepam 2 mg twice daily as needed. SIERRA MA in place [facility] 12-23-2023 Evaluation + Plan note Associated Problem(s): Neuropathy Reviewed OARRS. Consistent with treatment plan. Patient was previously on Lyrica with relief of some of her symptoms. Discussed risks and benefits of medication including increased sedation risk for addiction. SIERRA RASHID obtained. Patient to follow-up as scheduled. [facility] 12-23-2023 History of Present illness Narrative Patient was identified by name and Date of . Images from the original note were not included. 12/23/2023 Jonathan Moise (: 1950) is a 73 y.o. female , Established patient, here for evaluation of the following chief complaint(s): Edema, Cough (3 months), and Joint Swelling ASSESSMENT/PLAN: 1. Mass of left side of neck Assessment & Plan: Patient very hesitant to have any testing done. With discussion she is okay with having a CBC and ultrasound completed of the left side of the neck to further evaluate. -After visit chart review in care everywhere noted patient had CT of the neck completed in 05/24/2022 for same concern with no significant findings, "noting that a contrast-enhanced CT is much more sensitive for evaluation and recommended if symptoms persist". Patient was scheduled for ultrasound and cbc obtained. Further work up pending results. Orders: - US head neck soft tissue - CBC auto differential 2. Neuropathy Assessment & Plan: Reviewed OARRS. Consistent with treatment plan. Patient was previously on Lyrica with relief of some of her symptoms. Discussed risks and benefits of medication including increased sedation risk for addiction. CS MA obtained. Patient to follow-up as scheduled. Orders: - pregabalin (Lyrica) 75 MG capsule; Take 1 capsule (75 mg) by mouth 2 times daily., Starting Thu12/23/2023, Until Thu01/22/2024, Normal - CBC auto differential 3. Anxiety Assessment & Plan: Stable. Continue clonazepam 2 mg twice daily as needed. CS MA in place 4. Chronic obstructive pulmonary disease, unspecified COPD type (HCC) Assessment & Plan: Continue Symbicort and albuterol and recommend smoking cessation. Suspect mild exacerbation currently however patient declines treatment with oral steroid. No signs or symptoms suggesting need for antibiotic therapy 5. Essential hypertension Assessment & Plan: Blood pressure elevated. Continue current medications and follow-up as directed Follow up for with primary care provider as scheduled. SUBJECTIVE/OBJECTIVE: HPI - Jonathan Moise (: 1950) is a 73 y.o. female , Established patient, here for the evaluation of the following chief complaint(s): Edema, Cough (3 months), and Joint Swelling Swelling in hands bilaterally and joints swelling. Patient reports significant pain and burning in bilateral hands and feet. States she has bad arthritis in her hands, has not seen specialist and does not want to see a specialist for it, has been progressively getting worse, reports previously being on Lyrica that helped but has been off of the Lyrica for a couple years now. Reports going off of it because she got tired of taking all the medications. Cough and congestion worse than normal. No chest pain or increased shortness of breath. No fever or chills. No preceding cold symptoms. Patient with known COPD, reports that she does not tolerate prednisone as it makes her too jittery. She continues her albuterol as needed and Symbicort twice daily. Lymph node swollen on the left side- been there awhile "a good while" Getting bigger. Tender to touch. No redness, denies any difficulty swallowing. She states that she has been ignoring it. Reports significant family history of cancers and she worries that it may be cancer. She voices concern over financial means to pay for medical bills and is hesitant to get any further testing completed. Fosamax- reports she is not taking it. Had stomach upset with it and not going to take it. Prior to Admission medications Medication Sig Start Date End Date Taking? Authorizing Provider albuterol 108 (90 Base) MCG/ACT inhaler Inhale 2 puffs every 6 hours as needed for wheezing or shortness of breath. 07/21/23 Yes Adarsh Duggan MD apixaban (Eliquis) 5 MG tablet Take 1 tablet (5 mg) by mouth 2 times daily. 11/13/23 Yes Adarsh Duggan MD clonazePAM (KlonoPIN) 2 MG tablet Take 1 tablet (2 mg) by mouth 2 times daily as needed for anxiety. 12/14/23 Yes Deana Oh APRN - AMY hydroCHLOROthiazide (HYDRODiuril) 25 MG tablet Take 1 tablet (25 mg) by mouth daily. 12/30/22 Yes Adarsh Duggan MD lisinopril 20 MG tablet Take 1 tablet (20 mg) by mouth daily. 03/30/23 Yes MITZI Burton CNP metoprolol succinate XL (Toprol-XL) 100 MG 24 hr tablet Take 1 tablet (100 mg) by mouth daily. Do not crush or chew. 08/19/23 Yes Adarsh Duggan MD alendronate (Fosamax) 70 MG tablet Take 1 tablet (70 mg) by mouth every 7 days. Take in the morning with a full glass of water, on an empty stomach, and do not take anything else by mouth or lie down for the next 30 min. Patient not taking: Reported on 12/23/2023 07/09/23 07/08/24 MITZI Metzger CNP budesonide-formoterol (Symbicort) 160-4.5 MCG/ACT inhaler Inhale 2 puffs in the morning and 2 puffs in the evening. Rinse mouth with water after use to reduce aftertaste and incidence of candidiasis. Do not swallow.. 10/09/22 10/09/23 Adarsh Duggan MD Review of Systems Constitutional: Positive for fatigue. Negative for activity change, appetite change and fever. HENT: Positive for congestion. Negative for sinus pressure, sore throat and trouble swallowing. Respiratory: Positive for cough. Negative for chest tightness, shortness of breath and wheezing. Cardiovascular: Negative for chest pain and palpitations. Gastrointestinal: Negative. Genitourinary: Negative for difficulty urinating. Musculoskeletal: Positive for neck pain (Tender to palpation over the left lump on the neck). Neurological: Negative for dizziness, light-headedness and headaches. Vitals: 12/23/23 1402 BP: (!) 166/70 Pulse: 80 Resp: 20 Temp: 36.1 C (96.9 F) TempSrc: Infrared SpO2: 94% Weight: 134 lb (60.8 kg) Physical Exam Constitutional: General: She is not in acute distress. Appearance: Normal appearance. She is not ill-appearing. HENT: Head: Normocephalic and atraumatic. Right Ear: Tympanic membrane normal. Left Ear: Tympanic membrane normal. Mouth/Throat: Mouth: Mucous membranes are moist. Dentition: Has dentures. Pharynx: Oropharynx is clear. Uvula midline. No posterior oropharyngeal erythema. Eyes: Conjunctiva/sclera: Conjunctivae normal. Cardiovascular: Rate and Rhythm: Normal rate and regular rhythm. Pulses: Normal pulses. Heart sounds: Normal heart sounds. Pulmonary: Effort: Pulmonary effort is normal. No respiratory distress. Breath sounds: Wheezing (Scattered wheezes) present. Musculoskeletal: Right lower leg: No edema. Left lower leg: No edema. Comments: Noted swelling, tenderness to multiple joints of the hands. 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 Psychiatric: Attention and Perception: Attention and perception normal. Mood and Affect: Mood is anxious. Speech: Speech normal. Behavior: Behavior normal. Behavior is cooperative. Thought Content: Thought content normal. Cognition and Memory: Cognition and memory normal. An electronic signature was used to authenticate this note. MITZI Metzger CNP 12/23/2023 5:39 PM documented in this encounter [facility] 12-23-2023 Instructions MITZI Metzger CNP - 12/23/2023 2:00 PM EDT Please call Central Scheduling at [phone] to schedule your outpatient test Try taking the acetaminophen 650 mg with food for your arthritic pain. documented in this encounter [facility] 12-22-2023 Telephone encounter Note S: Patient spoke with [facility] nurse regarding lymph node enlargement B:onset symptoms/concern: " I've always had it, but its gotten bigger in the last 2 weeks" A: Patient complaints of lymph node under left ear is enlarged. Lymph node is slightly larger than dime size and is tender to touch. No redness to overlaying skin. Patient reports has had cough for about 2 months, but no other ill symptoms. Denies fever, difficulty breathing/swallowing, node enlargement elsewhere. R: offered apt today, but unable to come in at available time due to work. Apt made for 12/23/23 at 1400 with [employer] [facility]. Please arrive 15 minutes early, bring your photo ID, insurance card, medication list Insurance coverage verified. Home care advice given per protocol. Patient understands care advice. No further needs at this time. Patient instructed to call back with new or worsening symptoms. Reason for Disposition Very tender to the touch but no fever Protocols used: Lymph Nodes - [id number] [facility] 12-22-2023 Miscellaneous Notes S: Patient spoke with [facility] nurse regarding lymph node enlargement B:onset symptoms/concern: " I've always had it, but its gotten bigger in the last 2 weeks" A: Patient complaints of lymph node under left ear is enlarged. Lymph node is slightly larger than dime size and is tender to touch. No redness to overlaying skin. Patient reports has had cough for about 2 months, but no other ill symptoms. Denies fever, difficulty breathing/swallowing, node enlargement elsewhere. R: offered apt today, but unable to come in at available time due to work. Apt made for 12/23/23 at 1400 with [employer]. Please arrive 15 minutes early, bring your photo ID, insurance card, medication list Insurance coverage verified. Home care advice given per protocol. Patient understands care advice. No further needs at this time. Patient instructed to call back with new or worsening symptoms. Reason for Disposition Very tender to the touch but no fever Protocols used: Lymph Nodes - [id number] documented in this encounter [facility] 12-14-2023 Telephone encounter Note OARRS reviewed and consistent with treatment plan. Rx sent [facility] 12-14-2023 Miscellaneous Notes OARRS reviewed and consistent with treatment plan. Rx sent Medication name: clonazePAM (KlonoPIN) 2 MG tablet Medication dosage: 2 mg (Miligrams Monthly quantity needed: 60 How many day supply requestin days Medication route: oral (PO) Medication administration time(s): Take 1 tablet (2 mg) by mouth 2 times daily as needed for anxiety. If taking medication PRN, reason for taking medication: Take 1 tablet (2 mg) by mouth 2 times daily as needed for anxiety. If this is a controlled substance do you receive this or any other controlled medication from any other doctor or facility: No Ordering provider: Dr. Duggan Date of last office visit: 07/27/23 Date of next office visit: 02/02/24 Date of last refill: (see medication tab): 11/13/23 Updated/Validated preferred pharmacy: Yes Patient instructed to contact the pharmacy prior to picking up the medication: Yes documented in this encounter [facility] 12-14-2023 Telephone encounter Note Medication name: clonazePAM (KlonoPIN) 2 MG tablet Medication dosage: 2 mg (Miligrams Monthly quantity needed: 60 How many day supply requestin days Medication route: oral (PO) Medication administration time(s): Take 1 tablet (2 mg) by mouth 2 times daily as needed for anxiety. If taking medication PRN, reason for taking medication: Take 1 tablet (2 mg) by mouth 2 times daily as needed for anxiety. If this is a controlled substance do you receive this or any other controlled medication from any other doctor or facility: No Ordering provider: Dr. Duggan Date of last office visit: 07/27/23 Date of next office visit: 02/02/24 Date of last refill: (see medication tab): 11/13/23 Updated/Validated preferred pharmacy: Yes Patient instructed to contact the pharmacy prior to picking up the medication: Yes [facility] 07-31-2023 Telephone encounter Note Called, states call cannot go through due to calling restrictions. Mailed letter to contact the office. [facility] 07-31-2023 Miscellaneous Notes Called, states call cannot go through due to calling restrictions. Mailed letter to contact the office. Called, states call cannot go through due to calling restrictions. Called, states call cannot go through due to calling restrictions. Called 2x, says number has calling restrictions that prevent the call from going through. Blood pressure remains slightly elevated. Recommend increasing Lisinopril to 30 mg daily and checking her BP again in 2 weeks. Blood pressure remains slightly elevated. Recommend increasing Lisinopril to 30 mg daily and checking her BP again in 2 weeks. Christy came in for a BP check, readings were 147/80 pulse 69 and 142/76. Christy is taking hydrochlorothiazide 25mg, metoprolol 100mg and lisinopril 20mg for hypertension with excellent compliance and no side effects regular Shortness of breath no Medication compliance yes Medication Reconciliation yes BP Medication taken prior to visit yes at what time 3:30am B/P Reading taken automatic Home Monitoring no Patient advised if follow up is needed, outreach will occur in 48 hours documented in this encounter [facility] 07-29-2023 Telephone encounter Note Called, states call cannot go through due to calling restrictions. [facility] 07-29-2023 Miscellaneous Notes Called, states call cannot go through due to calling restrictions. Called, states call cannot go through due to calling restrictions. Called 2x, says number has calling restrictions that prevent the call from going through. Blood pressure remains slightly elevated. Recommend increasing Lisinopril to 30 mg daily and checking her BP again in 2 weeks. Blood pressure remains slightly elevated. Recommend increasing Lisinopril to 30 mg daily and checking her BP again in 2 weeks. Christy came in for a BP check, readings were 147/80 pulse 69 and 142/76. Christy is taking hydrochlorothiazide 25mg, metoprolol 100mg and lisinopril 20mg for hypertension with excellent compliance and no side effects regular Shortness of breath no Medication compliance yes Medication Reconciliation yes BP Medication taken prior to visit yes at what time 3:30am B/P Reading taken automatic Home Monitoring no Patient advised if follow up is needed, outreach will occur in 48 hours documented in this encounter [facility] 07-28-2023 Telephone encounter Note Called, states call cannot go through due to calling restrictions. [facility] 07-28-2023 Miscellaneous Notes Called, states call cannot go through due to calling restrictions. Called 2x, says [facility] has calling restrictions that prevent the call from going through. Blood pressure remains slightly elevated. Recommend increasing Lisinopril to 30 mg daily and checking her BP again in 2 weeks. Blood pressure remains slightly elevated. Recommend increasing Lisinopril to 30 mg daily and checking her BP again in 2 weeks. Christy came in for a BP check, readings were 147/80 pulse 69 and 142/76. Christy is taking hydrochlorothiazide 25mg, metoprolol 100mg and lisinopril 20mg for hypertension with excellent compliance and no side effects regular Shortness of breath no Medication compliance yes Medication Reconciliation yes BP Medication taken prior to visit yes at what time 3:30am B/P Reading taken automatic Home Monitoring no Patient advised if follow up is needed, outreach will occur in 48 hours documented in this encounter [facility] 07-28-2023 Telephone encounter Note Called 2x, says [facility] has calling restrictions that prevent the call from going through. Blood pressure remains slightly elevated. Recommend increasing Lisinopril to 30 mg daily and checking her BP again in 2 weeks. [facility] 07-27-2023 Telephone encounter Note Blood pressure remains slightly elevated. Recommend increasing Lisinopril to 30 mg daily and checking her BP again in 2 weeks. [facility] 07-27-2023 Miscellaneous Notes Blood pressure remains slightly elevated. Recommend increasing Lisinopril to 30 mg daily and checking her BP again in 2 weeks. Christy came in for a BP check, readings were 147/80 pulse 69 and 142/76. Christy is taking hydrochlorothiazide 25mg, metoprolol 100mg and lisinopril 20mg for hypertension with excellent compliance and no side effects regular Shortness of breath no Medication compliance yes Medication Reconciliation yes BP Medication taken prior to visit yes at what time 3:30am B/P Reading taken automatic Home Monitoring no Patient advised if follow up is needed, outreach will occur in 48 hours documented in this encounter [facility] 07-27-2023 Telephone encounter Note Christy came in for a BP check, readings were 147/80 pulse 69 and 142/76. Christy is taking hydrochlorothiazide 25mg, metoprolol 100mg and lisinopril 20mg for hypertension with excellent compliance and no side effects regular Shortness of breath no Medication compliance yes Medication Reconciliation yes BP Medication taken prior to visit yes at what time 3:30am B/P Reading taken automatic Home Monitoring no Patient advised if follow up is needed, outreach will occur in 48 hours [facility] 07-21-2023 Evaluation + Plan note Associated Problem(s): Osteoporosis Fosamax 70 mg weekly and calcium 1200 mg with vitamin D daily and weightbearing exercises such as walking. [facility] 07-21-2023 Miscellaneous Notes Associated Problem(s): Osteoporosis Fosamax 70 mg weekly and calcium 1200 mg with vitamin D daily and weightbearing exercises such as walking. Associated Problem(s): Anxiety Stable, continue Klonopin 2 mg twice a day as needed. Associated Problem(s): Paroxysmal atrial fibrillation (HCC) Stable, continue Eliquis 5 mg daily and metoprolol as rate control. Associated Problem(s): Essential hypertension Blood pressure was initially elevated, recheck was still little high continue metoprolol 100 mg daily and lisinopril 20 mg daily and hydrochlorothiazide 25 mg daily and follow-up in 1 week for blood pressure check. 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 [facility] 07-21-2023 Evaluation + Plan note Associated Problem(s): Paroxysmal atrial fibrillation (HCC) Stable, continue Eliquis 5 mg daily and metoprolol as rate control. [facility] 07-21-2023 Evaluation + Plan note Associated Problem(s): Essential hypertension Blood pressure was initially elevated, recheck was still little high continue metoprolol 100 mg daily and lisinopril 20 mg daily and hydrochlorothiazide 25 mg daily and follow-up in 1 week for blood pressure check. 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 Images from the original note were not included. [facility] [address] [place] [address] [phone] Visit type: Established Patient Reason for Visit: Medicare Annual Wellness Visit Subsequent, Blood Work, and Health Maintenance (Colonoscopy-done [facility] /Hep c screening- refuse/Shingles vaccine- refuse/Lung screening- not right now /Covid 3 vaccine- done/Flu vaccine- refuse) Assessment and Plan Problem List Items Addressed This Visit Respiratory Chronic obstructive pulmonary disease (HCC) Stable, continue Symbicort and albuterol and stop smoking Circulatory Essential hypertension Blood pressure was initially elevated, recheck was still little high continue metoprolol 100 mg daily and lisinopril 20 mg daily and hydrochlorothiazide 25 mg daily and follow-up in 1 week for blood pressure check. Paroxysmal atrial fibrillation (HCC) Stable, continue Eliquis 5 mg daily and metoprolol as rate control. 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 Other Pure hypercholesterolemia Anxiety Stable, continue Klonopin 2 mg twice a day as needed. Relevant Medications clonazePAM (KlonoPIN) 2 MG tablet Other Visit Diagnoses Medicare annual wellness visit, subsequent - Primary Peripheral vascular disease, unspecified (HCC) Follow up in about 6 months (around 01/19/2024). Subjective HPI Christy comes in today for her annual Medicare well visit, she denies any complaints says she is doing well her anxiety seems to be fairly well controlled on her Klonopin, her blood pressure is a little elevated today we will recheck that prior to discharge. She also here for follow-up on her coronary disease and her hyperlipidemia and her atrial fibrillation. I have reviewed and reconciled the medication list with the patient today. Current Outpatient Medications Medication Sig Dispense Refill alendronate (Fosamax) 70 MG tablet Take 1 tablet (70 mg) by mouth every 7 days. Take in the morning with a full glass of water, on an empty stomach, and do not take anything else by mouth or lie down for the next 30 min. 4 tablet 11 apixaban (Eliquis) 5 MG tablet Take 1 tablet (5 mg) by mouth 2 times daily. 60 tablet 5 budesonide-formoterol (Symbicort) 160-4.5 MCG/ACT inhaler Inhale 2 puffs in the morning and 2 puffs in the evening. Rinse mouth with water after use to reduce aftertaste and incidence of candidiasis. Do not swallow.. 1 each 2 hydroCHLOROthiazide (HYDRODiuril) 25 MG tablet Take 1 tablet (25 mg) by mouth daily. 90 tablet 1 lisinopril 20 MG tablet Take 1 tablet (20 mg) by mouth daily. 90 tablet 1 metoprolol succinate XL (Toprol-XL) 100 MG 24 hr tablet Take 1 tablet (100 mg) by mouth daily. Do not crush or chew. 90 tablet 1 albuterol 108 (90 Base) MCG/ACT inhaler Inhale 2 puffs every 6 hours as needed for wheezing or shortness of breath. 18 g 2 clonazePAM (KlonoPIN) 2 MG tablet Take 1 tablet (2 mg) by mouth 2 times daily as needed for anxiety. 60 tablet 0 No current facility-administered medications for this visit. Medications Discontinued During This Encounter Medication Reason albuterol 108 (90 Base) MCG/ACT inhaler Reorder clonazePAM (KlonoPIN) 2 MG tablet Reorder List of current healthcare providers: Patient Care Team: Adarsh Duggan MD as PCP - General Patt Lerma RN as Transmission Inspector Over the past 2 weeks, how often have you been bothered by any of the following problems? Trouble falling or staying asleep, or sleeping too much: Several days Feeling tired or having little energy: Several days Poor appetite or overeating: Several days Feeling bad about yourself - or that you are a failure or have let yourself or your family down: Several days Trouble concentrating on things, such as reading the newspaper or watching television: Not at all Moving or speaking so slowly that other people could have noticed? Or the opposite - being so fidgety or restless that you have been moving around a lot more than usual.: Several days Thoughts that you would be better off or hurting yourself in some way: Not at all Patient Health Questionnaire-9 Score: 7 Over the last 2 weeks, how often have you been bothered by any of the following problems? Feeling nervous, anxious, or on edge: Nearly every day Not being able to stop or control worrying: Nearly every day Worrying too much about different things: Nearly every day Trouble relaxing: Nearly every day Being so restless that it is hard to sit still: Nearly every day Becoming easily annoyed or irritable: Nearly every day Feeling afraid as if something awful might happen: Not at all TATIANNA-7 Total Score: 18 The following health maintenance schedule was reviewed with the patient and provided in printed form in the after visit summary: Health Maintenance Topic Date Due Medicare Advantage Annual Wellness Visit (AWV) Never done Colorectal Cancer Screening Never done Hepatitis C Screening Never done Diabetes Screening Never done Mammogram Never done Zoster Vaccines (1 of 2) Never done Lung Cancer Screening Never done COVID-19 Vaccine (3 - Pfizer series) 10/22/2021 Influenza Vaccine (1) 05/15/2023 Depresssion Monitoring 07/01/2023 Bone Density Scan 07/07/2024 Lipid Panel 12/31/2027 DTaP/Tdap/Td Vaccines (3 - Td or Tdap) 04/09/2028 Pneumococcal Vaccine: 65+ Years Completed HIB Vaccines Aged Out Hepatitis B Vaccines Aged Out IPV Vaccines Aged Out Hepatitis A Vaccines Aged Out Meningococcal Vaccine Aged Out Rotavirus Vaccines Aged Out HPV Vaccines Aged Out No orders of the defined types were placed in this encounter. Health Risk Assessment: General In general, how would you say your health is?: (!) Fair In the past 7 days, have you experienced any of the following: New or Increased Pain, New or Increased Fatigue, Loneliness, Social Isolation, Stress or Anger?: (!) Yes Select all that apply: (!) Stress Do you get the social and emotional suppport you need?: Yes Interventions: Stress: work is her stressor Health Habits / Nutrition Have you seen the dentist within the past year?: Yes Interventions: Hearing / Vision Do you or your family notice any trouble with your hearing that hasn't been managed with hearing aids?: No Do you have difficulty driving, watching TV, or doing any of your daily activities because of your eyesight?: No Have you had an eye exam within the past year?: Yes No results found. Interventions: Safety Do you have a working smoke detector?: Yes Do you have any tripping hazards - loose or unsecured carpets or rugs?: No Do you have any tripping hazards - clutter in doorways, halls, or stairs?: No Do you have either shower bars, grab bars, non-slip mats or non-slip surfaces in your shower or bathtub? : Yes Do all your stairways have a railing or banister? : Yes Do you fasten your seatbelt when you are in a car?: Yes Interventions: ADL In the past 7 days, did you need help from others to perform any of the following everyday activities: Eating, dressing, grooming,bathing, toileting, or walking / balance? : No In the past 7 days, did you need help from others to take care of any of the following: laundry, housekeeping, banking / finances,shopping, telephone use, food preparation, transportation, or taking medications? : No Interventions: Living Will Do you have a living will?: Yes Interventions: Cognitive: Cognitive Screening: Mini-Cog Clock Drawing Test (CDT): 2 Words Recalled: 3 Total Score: 5 Total Score Interpretation: Normal Mini-Cog Interventions: Fall Risk: Interventions: No falls Depression Screening: Over the past 2 weeks, how often have you been bothered by any of the following problems? Little interest or pleasure in doing things: Several days Feeling down, depressed, or hopeless: Several days Patient Health Questionnaire-2 Score: 2 Over the past 2 weeks, how often have you been bothered by any of the following problems? Trouble falling or staying asleep, or sleeping too much: Several days Feeling tired or having little energy: Several days Poor appetite or overeating: Several days Feeling bad about yourself - or that you are a failure or have let yourself or your family down: Several days Trouble concentrating on things, such as reading the newspaper or watching television: Not at all Moving or speaking so slowly that other people could have noticed? Or the opposite - being so fidgety or restless that you have been moving around a lot more than usual.: Several days Thoughts that you would be better off or hurting yourself in some way: Not at all Patient Health Questionnaire-9 Score: 7 If you checked off any problems on this questionnaire so far, How difficult have these problems made it for you to do your work, take care of things at home, or get along with other people?: Somewhat difficult Interventions: Tobacco Use: Social History Tobacco Use Smoking Status Every Day Packs/day: 1.00 Years: 40.00 Additional pack years: 0.00 Total pack years: 40.00 Types: Cigarettes Smokeless Tobacco Never Interventions: Patient is not ready to work towards tobacco cessation at this time Alcohol Use: Audit Alcohol Screening Q2: How many drinks containing alcohol do you have on a typical day when you are drinking?: Patient does not drink Interventions: Drug Use: Drug Abuse Screening Test (DAST-10) Have you used drugs other than those required for medical reasons?: No Interventions: Review of Systems Constitutional: Negative for chills and fever. Respiratory: Negative for shortness of breath. Cardiovascular: Negative for chest pain and palpitations. Gastrointestinal: Negative for abdominal pain, blood in stool, constipation and diarrhea. Genitourinary: Negative for dyspareunia, dysuria, frequency, hematuria and urgency. Neurological: Negative for weakness and numbness. Psychiatric/Behavioral: Negative for dysphoric mood. The patient is not nervous/anxious. Immunization History Administered Date(s) Administered Influenza, injectable, quadrivalent 08/24/2019 Influenza, seasonal, injectable 07/15/2019 [place] SARS-CoV-2 Vaccination 08/06/2021, 08/27/2021 Pneumococcal Conjugate PCV 13 01/06/2017 Pneumococcal Polysaccharide PPSV23 09/17/2020 Tdap 04/09/2016, 04/09/2018 Allergies Allergen Reactions Sertraline Unknown Phenytoin Swelling Levofloxacin Rash Other reaction(s): Rash Outpatient Medications Prior to Visit Medication Sig Dispense Refill alendronate (Fosamax) 70 MG tablet Take 1 tablet (70 mg) by mouth every 7 days. Take in the morning with a full glass of water, on an empty stomach, and do not take anything else by mouth or lie down for the next 30 min. 4 tablet 11 apixaban (Eliquis) 5 MG tablet Take 1 tablet (5 mg) by mouth 2 times daily. 60 tablet 5 budesonide-formoterol (Symbicort) 160-4.5 MCG/ACT inhaler Inhale 2 puffs in the morning and 2 puffs in the evening. Rinse mouth with water after use to reduce aftertaste and incidence of candidiasis. Do not swallow.. 1 each 2 hydroCHLOROthiazide (HYDRODiuril) 25 MG tablet Take 1 tablet (25 mg) by mouth daily. 90 tablet 1 lisinopril 20 MG tablet Take 1 tablet (20 mg) by mouth daily. 90 tablet 1 metoprolol succinate XL (Toprol-XL) 100 MG 24 hr tablet Take 1 tablet (100 mg) by mouth daily. Do not crush or chew. 90 tablet 1 albuterol 108 (90 Base) MCG/ACT inhaler Inhale 2 puffs every 6 hours as needed. clonazePAM (KlonoPIN) 2 MG tablet Take 1 tablet (2 mg) by mouth 2 times daily as needed for anxiety. 60 tablet 0 No facility-administered medications prior to visit. Past Medical History: Diagnosis Date Anemia COPD (chronic obstructive pulmonary disease) (HCC) Coronary artery disease, non-occlusive GERD (gastroesophageal reflux disease) Hypertension Myoclonic disorder Thyroid nodule Social History Socioeconomic History Marital status: Tobacco Use Smoking status: Every Day Packs/day: 1.00 Years: 40.00 Additional pack years: 0.00 Total pack years: 40.00 Types: Cigarettes Smokeless tobacco: Never Substance and Sexual Activity Alcohol use: Not Currently Drug use: Not Currently Sexual activity: Not Currently Social Determinants of Health Financial Resource Strain: High Risk (07/21/2023) Overall Financial Resource Strain (CARDIA) Difficulty of Paying Living Expenses: Hard Food Insecurity: Food Insecurity Present (07/21/2023) Hunger Vital Sign Worried About Running Out of Food in the Last Year: Sometimes true Ran Out of Food in the Last Year: Never true Transportation Needs: No Transportation Needs (07/21/2023) PRAPARE - Transportation Lack of Transportation (Medical): No Lack of Transportation (Non-Medical): No Physical Activity: Inactive (07/21/2023) Exercise Vital Sign Days of Exercise per Week: 0 days Minutes of Exercise per Session: 0 min Housing Stability: Low Risk (07/21/2023) Housing Stability Vital Sign Unable to Pay for Housing in the Last Year: No Number of Places Lived in the Last Year: 1 Unstable Housing in the Last Year: No Past Surgical History: Procedure Laterality Date CARDIAC SURGERY cath CARDIAC SURGERY 12/2021 CYST REMOVAL Right Breast THYROID LOBECTOMY Left THYROIDECTOMY TONSILLECTOMY TOTAL ABDOMINAL HYSTERECTOMY Cervix removed Past Surgical History: Procedure Laterality Date CARDIAC SURGERY cath CARDIAC SURGERY 12/2021 CYST REMOVAL Right Breast THYROID LOBECTOMY Left THYROIDECTOMY TONSILLECTOMY TOTAL ABDOMINAL HYSTERECTOMY Cervix removed Family History Problem Relation Name Age of Onset High Blood Pressure Mother Stroke Mother Heart disease Mother Cancer Father Cancer Other Paternal Uncle Colon cancer Other Paternal Uncle Other cancer Other Father fam hx Throat CA, colon and leukemia Objective BP (!) 151/73 Pulse 67 Ht 5' 6" (1.676 m) Wt 135 lb (61.2 kg) SpO2 95% BMI 21.79 kg/m Physical Exam Vitals and nursing note reviewed. Constitutional: General: She is not in acute distress. Appearance: Normal appearance. HENT: Head: Normocephalic. Right Ear: Tympanic membrane, ear canal and external ear normal. Left Ear: Tympanic membrane, ear canal and external ear normal. Mouth/Throat: Mouth: Mucous membranes are moist. Pharynx: Oropharynx is clear. Eyes: Extraocular Movements: Extraocular movements intact. Pupils: Pupils are equal, round, and reactive to light. Neck: Thyroid: No thyromegaly. Vascular: No carotid bruit. Cardiovascular: Rate and Rhythm: Normal rate and regular rhythm. Heart sounds: Normal heart sounds. No murmur heard. Pulmonary: Effort: Pulmonary effort is normal. Breath sounds: Normal breath sounds. Abdominal: General: Bowel sounds are normal. Palpations: Abdomen is soft. Musculoskeletal: General: Normal range of motion. Cervical back: Normal range of motion. Lymphadenopathy: Cervical: No cervical adenopathy. Skin: General: Skin is warm and dry. Neurological: General: No focal deficit present. Mental Status: She is alert and oriented to person, place, and time. Psychiatric: Mood and Affect: Mood normal. Data Reviewed Labs: Imaging/Testing: Adarsh Duggan MD 07/21/2023 3:09 PM documented in this encounter [facility] 07-09-2023 Telephone encounter Note Notified, agreeable, fosamax pended. [facility] 07-09-2023 Telephone encounter Note ----- Message from Adarsh Duggan MD sent at 07/09/2023 9:05 AM EDT ----- Christy has significant osteoporosis, she needs to start Fosamax 70 mg weekly, she needs to be taking 1200 mg of calcium with vitamin D daily, she needs to start regimented weightbearing exercises like walking a couple miles 3 to 5 days a week and she needs to STOP SMOKING. This lady is at extremely high risk for fractures. If she does not do the above she will have a fracture in the future. [facility] 07-09-2023 Miscellaneous Notes Notified, agreeable, fosamax pended. ----- Message from Adarsh Duggan MD sent at 07/09/2023 9:05 AM EDT ----- Christy has significant osteoporosis, she needs to start Fosamax 70 mg weekly, she needs to be taking 1200 mg of calcium with vitamin D daily, she needs to start regimented weightbearing exercises like walking a couple miles 3 to 5 days a week and she needs to STOP SMOKING. This lady is at extremely high risk for fractures. If she does not do the above she will have a fracture in the future. documented in this encounter [facility] 05-27-2023 Telephone encounter Note . [facility] 05-27-2023 Miscellaneous Notes . documented in this encounter [facility] 05-25-2023 History of Present illness Narrative Images from the original note were not included. 05/25/2023 Jonathan Moise (: 1950) is a 72 y.o. female , Established patient, here for evaluation of the following chief complaint(s): Cough (Cough for 3 days, has not tested for COVID) ASSESSMENT/PLAN: 1. Viral URI with cough - Saline nasal spray for congestion. - Encouraged increasing oral fluids to keep mucous secretions moist. - Encouraged tea with honey for throat discomfort and cough relief. - May use Tylenol/Motrin as needed for pain relief. - Sleep with humidified air. - Encouraged she test for COVID-19. - Discussed signs and symptoms warranting immediate attention- verbalized understanding. 2. Chronic obstructive pulmonary disease, unspecified COPD type (HCC) - Continue Symbicort and Albuterol as prescribed. - Offered tapering Prednisone for symptoms relief and declines at this time. 3. Smoker - Encouraged smoking cessation. Follow up if symptoms worsen or fail to improve. SUBJECTIVE/OBJECTIVE: HPI - Jonathan presents today with concerns of a non-productive cough that started about 3 days ago. States she works at the [employer] and a lot of the residents are sick with similar symptoms. Has not tested herself for COVID. Denies known fevers. Cough is moist, but cannot seem to cough anything up and out. Has been taking Mucinex OTC without much improvement. Cough is worse at night. Denies loss of taste or smell. Denies chest tightness, shortness of breath, or wheezing. Of note: has COPD and is an active smoker (0.5 PPD x40+ years). Has been taking her Symbicort and rescue inhalers as directed. These are helpful. Review of Systems Constitutional: Negative for chills and fever. HENT: Positive for congestion (chest) and rhinorrhea. Negative for ear discharge, ear pain, sinus pressure, sinus pain and sore throat. Respiratory: Positive for cough. Negative for chest tightness, shortness of breath and wheezing. Vitals: 05/25/23 1341 BP: 136/74 Pulse: 76 Temp: 36.8 C (98.2 F) SpO2: 98% Weight: 136 lb (61.7 kg) Height: 5' 6" (1.676 m) Body mass index is 21.95 kg/m . Physical Exam Constitutional: General: She is not in acute distress. Appearance: She is not ill-appearing or diaphoretic. HENT: Head: Normocephalic and atraumatic. Right Ear: Tympanic membrane, ear canal and external ear normal. Left Ear: Tympanic membrane, ear canal and external ear normal. Nose: Rhinorrhea present. Rhinorrhea is clear. Mouth/Throat: Lips: [place]. Mouth: Mucous membranes are moist. Pharynx: Oropharynx is clear. No pharyngeal swelling, oropharyngeal exudate or posterior oropharyngeal erythema. Tonsils: No tonsillar exudate. Cardiovascular: Rate and Rhythm: Normal rate and regular rhythm. Heart sounds: Normal heart sounds. No murmur heard. No friction rub. Pulmonary: Effort: Pulmonary effort is normal. Breath sounds: Normal breath sounds. No wheezing, rhonchi or rales. Musculoskeletal: Cervical back: Neck supple. Lymphadenopathy: Head: Right side of head: No tonsillar adenopathy. Left side of head: No tonsillar adenopathy. Cervical: No cervical adenopathy. Skin: General: Skin is warm and dry. Coloration: Skin is not pale. Findings: No erythema or rash. Neurological: Mental Status: She is alert and oriented to person, place, and time. Psychiatric: Mood and Affect: Mood normal. Behavior: Behavior normal. Thought Content: Thought content normal. Judgment: Judgment normal. An electronic signature was used to authenticate this note. MITZI Burton CNP 05/25/2023 2:11 PM documented in this encounter [facility] 03-30-2023 Telephone encounter Note Rx sent to requested pharmacy. [facility] 03-30-2023 Miscellaneous Notes Rx sent to requested pharmacy. There is already another request routed to you for the clonazepam. (1) Medication name: Clonazepam Medication dosage: 2 mg (Miligrams Monthly quantity needed: 60 How many day supply requestin days Medication route: oral (PO) Medication administration time(s): 2 times a day (BID) If taking medication PRN, reason for taking medication: N/A If this is a controlled substance do you receive this or any other controlled medication from any other doctor or facility: No Date of last refill (see medication tab): 03.02.23 (2) Medication name: Lisinopril Medication dosage: 20 mg (Miligrams Monthly quantity needed: 90 How many day supply requestin days Medication route: oral (PO) Medication administration time(s): daily If taking medication PRN, reason for taking medication: N/A If this is a controlled substance do you receive this or any other controlled medication from any other doctor or facility: No Date of last refill (see medication tab): 12.30.22 (3) Medication name: Metoprolol Medication dosage: 100 mg (Miligrams Monthly quantity needed: 90 How many day supply requestin days Medication route: oral (PO) Medication administration time(s): daily If taking medication PRN, reason for taking medication: N/A If this is a controlled substance do you receive this or any other controlled medication from any other doctor or facility: No Date of last refill (see medication tab): 09.09.22 documented in this encounter [facility] 03-30-2023 Telephone encounter Note There is already another request routed to you for the clonazepam. [facility] 03-30-2023 Telephone encounter Note (1) Medication name: Clonazepam Medication dosage: 2 mg (Miligrams Monthly quantity needed: 60 How many day supply requestin days Medication route: oral (PO) Medication administration time(s): 2 times a day (BID) If taking medication PRN, reason for taking medication: N/A If this is a controlled substance do you receive this or any other controlled medication from any other doctor or facility: No Date of last refill (see medication tab): 03.02.23 (2) Medication name: Lisinopril Medication dosage: 20 mg (Miligrams Monthly quantity needed: 90 How many day supply requestin days Medication route: oral (PO) Medication administration time(s): daily If taking medication PRN, reason for taking medication: N/A If this is a controlled substance do you receive this or any other controlled medication from any other doctor or facility: No Date of last refill (see medication tab): 12.30.22 (3) Medication name: Metoprolol Medication dosage: 100 mg (Miligrams Monthly quantity needed: 90 How many day supply requestin days Medication route: oral (PO) Medication administration time(s): daily If taking medication PRN, reason for taking medication: N/A If this is a controlled substance do you receive this or any other controlled medication from any other doctor or facility: No Date of last refill (see medication tab): 22 [facility] 03-02-2023 Telephone encounter Note Scheduled, order pended. [facility] 03-02-2023 Miscellaneous Notes Scheduled, order pended. Please have patient come in for random urine drug screen. Refill sent. [facility] reviewed and consistent with treatment plan. [facility] 06/24/22 UDS not found Medication name: clonazePAM (KlonoPIN) 2 MG tablet Medication dosage: 2 mg (Miligrams Monthly quantity needed: 60 How many day supply requestin days Medication route: oral (PO) Medication administration time(s): 2 times daily PRN for anxiety If taking medication PRN, reason for taking medication: N/A If this is a controlled substance do you receive this or any other controlled medication from any other doctor or facility: No Ordering provider: Dr. Duggan Date of last office visit: 12/30/2022 Date of next office visit: Date of last refill: (see medication tab): 02/03/2023 Updated/Validated preferred pharmacy: Yes Patient instructed to contact the pharmacy prior to picking up the medication: No documented in this encounter [facility] 03-02-2023 Telephone encounter Note Please have patient come in for random urine drug screen. Refill sent. Oarrs reviewed and consistent with treatment plan. [facility] 03-02-2023 Telephone encounter Note [facility] 06/24/22 UDS not found [facility] 03-02-2023 Telephone encounter Note Medication name: clonazePAM (KlonoPIN) 2 MG tablet Medication dosage: 2 mg (Miligrams Monthly quantity needed: 60 How many day supply requestin days Medication route: oral (PO) Medication administration time(s): 2 times daily PRN for anxiety If taking medication PRN, reason for taking medication: N/A If this is a controlled substance do you receive this or any other controlled medication from any other doctor or facility: No Ordering provider: Dr. Duggan Date of last office visit: 12/30/2022 Date of next office visit: Date of last refill: (see medication tab): 02/03/2023 Updated/Validated preferred pharmacy: Yes Patient instructed to contact the pharmacy prior to picking up the medication: No [facility] 01-24-2023 Hospital Discharge instructions Temo Hicks MD - 01/24/2023 4:[address] Nice about possible physical therapy referral and vice president business development pain management. The following attachments cannot be sent through Care Everywhere.Hip Pain (Malaysian)Vertebral Compression Fracture ED (Malaysian)documented in this encounter [facility] 01-24-2023 Emergency department Note EMERGENCY DEPARTMENT ENCOUNTER Pt Name: Jonathan Moise Birthdate 1950 Date of evaluation: 01/24/2023 ED Provider: Temo Hicks MD CHIEF COMPLAINT Chief Complaint Patient presents with Hip Pain History from patient and daughter HISTORY OF PRESENT ILLNESS (Location/Symptom, Timing/Onset, Context/Setting, Quality, Duration, Modifying Factors, Severity) Note limiting factors. I wore appropriate PPE for the entirety of this encounter. HPI Jonathan Moise is a 72 y.o. female who presents to the emergency department with chief complaint of left hip pain. Patient states the pain began gradually 3 days ago. She states it feels like something is grinding. No fever or injury. No previous problem. No incontinence. Denies cancer or IV drug use but does have osteoporosis. States she also has pain in her lower back. Daughter states this is exactly the same symptoms the daughter had when the daughter had sciatic pain. PCP not available so the patient came the emergency department for diagnosis and pain relief. Has tried Tylenol lidocaine patch and [id number] medications without relief. Nursing Notes were reviewed. Limitations to history: None Outside historians: Family daughter REVIEW OF SYSTEMS Review of Systems Constitutional: Negative for chills and fever. Eyes: Negative for visual disturbance. Respiratory: Negative for shortness of breath. Cardiovascular: Negative for chest pain. Gastrointestinal: Negative for abdominal pain. Genitourinary: Negative for difficulty urinating. Musculoskeletal: Positive for arthralgias, back pain and gait problem. Negative for joint swelling, myalgias, neck pain and neck stiffness. Skin: Negative for color change, pallor and rash. Neurological: Negative for headaches. PAST MEDICAL HISTORY Past Medical History: Diagnosis Date Anemia COPD (chronic obstructive pulmonary disease) (HCC) Coronary artery disease, non-occlusive GERD (gastroesophageal reflux disease) Hypertension Myoclonic disorder Thyroid nodule SURGICAL HISTORY Past Surgical History: Procedure Laterality Date CARDIAC SURGERY cath CARDIAC SURGERY 12/2021 CYST REMOVAL Right Breast THYROID LOBECTOMY Left THYROIDECTOMY TONSILLECTOMY TOTAL ABDOMINAL HYSTERECTOMY Cervix removed CURRENT MEDICATIONS Previous Medications ALBUTEROL 108 (90 BASE) MCG/ACT INHALER Inhale 2 puffs every 6 hours as needed. APIXABAN (ELIQUIS) 5 MG TABLET Take 5 mg by mouth in the morning and 5 mg in the evening. BUDESONIDE-FORMOTEROL (SYMBICORT) 160-4.5 MCG/ACT INHALER Inhale 2 puffs in the morning and 2 puffs in the evening. Rinse mouth with water after use to reduce aftertaste and incidence of candidiasis. Do not swallow.. CLONAZEPAM (KLONOPIN) 2 MG TABLET take 1 tablet by mouth twice a day if needed for anxiety GLUCOSE BLOOD TEST STRIP Infuse into a venous catheter. HYDROCHLOROTHIAZIDE (HYDRODIURIL) 25 MG TABLET Take 1 tablet (25 mg) by mouth daily. LISINOPRIL 20 MG TABLET Take 1 tablet (20 mg) by mouth daily. METOPROLOL SUCCINATE XL (TOPROL-XL) 100 MG 24 HR TABLET take 1 tablet by mouth once daily ALLERGIES Sertraline, Phenytoin, and Levofloxacin FAMILY HISTORY Family History Problem Relation Name Age of Onset High Blood Pressure Mother Stroke Mother Heart disease Mother Cancer Father Cancer Other Paternal Uncle Colon cancer Other Paternal Uncle Other cancer Other Father fam hx Throat CA, colon and leukemia SOCIAL HISTORY Social History Socioeconomic History Marital status: Tobacco Use Smoking status: Every Day Packs/day: 1.00 Years: 40.00 Pack years: 40.00 Types: Cigarettes Smokeless tobacco: Never Social Determinants of Health Financial Resource Strain: High Risk Difficulty of Paying Living Expenses: Very hard Food Insecurity: Food Insecurity Present Worried About Running Out of Food in the Last Year: Sometimes true Ran Out of Food in the Last Year: Sometimes true Transportation Needs: No Transportation Needs Lack of Transportation (Medical): No Lack of Transportation (Non-Medical): No Physical Activity: Inactive Days of Exercise per Week: 0 days Minutes of Exercise per Session: 0 min Housing Stability: Low Risk Unable to Pay for Housing in the Last Year: No Number of Places Lived in the Last Year: 1 Unstable Housing in the Last Year: No SCREENINGS PHYSICAL EXAM ED Triage Vitals Temp Pulse Resp BP -- -- -- -- SpO2 Temp src Heart Rate Source Patient Position -- -- -- -- BP Location FiO2 (%) -- -- Physical Exam Constitutional: Appearance: Normal appearance. HENT: Head: Normocephalic and atraumatic. Eyes: Extraocular Movements: Extraocular movements intact. Pupils: Pupils are equal, round, and reactive to light. Cardiovascular: Rate and Rhythm: Normal rate. Pulmonary: Effort: Pulmonary effort is normal. Musculoskeletal: Cervical back: Normal range of motion. Skin: Capillary Refill: Capillary refill takes less than 2 seconds. Neurological: Mental Status: She is alert. Occasional myoclonic tremors Not febrile not toxic Back mild tenderness over L3 negative straight leg raising bilaterally Left hip -stable pelvis, no point tenderness, no warmth or effusion, full range of motion, distal neurovascular intact Neurologic -strength 5 out of 5 in all 4 extremities, intact light touch all 4 extremities, ambulatory DIAGNOSTIC RESULTS RADIOLOGY (Per Emergency Physician): Lumbarsacral Spine x-ray - no fracture, mild scoliosis Left hip x-ray - no fracture or dislocation; mild joint narrowing, calcified femoral artery Interpretation per the Radiologist below, if available at the time of this note: XR lumbar spine 2 or 3 views Final Result Mild compression deformity of L1 vertebral body. The age of this is uncertain, however does not appear to have been present on a CT of the chest from 2017. Moderate diffuse degenerative changes of the lumbar spine. The bones are osteopenic. Report Dictated on Electronically Signed By: Maged Castro Electronically Signed Date/Time: 01/24/2023 4:19 PM EDT XR hip left 2 or 3 views Final Result No fracture or dislocation of the pelvis or left hip. Mild osteoarthritis of the bilateral hips. Report Dictated on Electronically Signed By: Maged Castro Electronically Signed Date/Time: 01/24/2023 4:15 PM EDT EMERGENCY DEPARTMENT COURSE and DIFFERENTIAL DIAGNOSIS/MDM: Vitals: Vitals: 01/24/23 1524 BP: (!) 180/83 BP Location: Right arm Patient Position: Sitting Pulse: 81 Resp: 14 Temp: 37.2 C (98.9 F) TempSrc: Oral SpO2: 99% Weight: 67.1 kg (148 lb) Height: 1.676 m (5' 6") Medical Decision Making and ED Course The patient presented with a chief complaint of low back pain and left hip pain. The differential diagnosis associated with this patient's presentation includes spinal cord compression vertebral fracture hip fracture arthritis dislocation septic joint. Our workup consisted of ordering/reviewing imaging History and physical exam not consistent with spinal epidural abscess spinal cord compression joint infection. There are no other joints involved making systemic arthritis unlikely. Imaging shows no hip fracture or dislocation but does show DJD. Imaging of the lumbar spine shows mild compression of L1, age of which is uncertain but which could be the etiology of her symptoms. There is no evidence of spinal cord involvement based on normal physical exam. Diagnostic tests and medications considered but not ordered: MRI not available. She has no neurologic findings other than her myoclonic tremors, has no risk factors for spinal abscess or spinal cord compression. Review of prior external records: Office visit 12/30/2022 -nothing related to current visit Independent test interpretation by me: X-ray Chronic conditions impacting care: Hyper lipid irritable bowel coronary artery disease mitral insufficiency fibromyalgia paroxysmal atrial fibrillation claudication depression lung nodule COPD GERD thyroid disease myoclonic tremors ED Medications managed: Hydrocodone given to relieve pain despite epic stating that patient is on a pain plan. When asked patient denies that she is on a pain plan and states she never has been on a pain plan and daughter concurs. Patient states she is not allowed to take ibuprofen which would be the best long-term medication for her. She states the Tylenol and lidocaine patch did not work for her. Daughter request gabapentin and steroids and now agrees after shared decision making that it would be best if her PCP prescribes this, not the emergency department. After much discussion the only medication that she agrees to take would be Percocet. She has been educated the research shows that this is not an effective treatment for her back pain but she requested anyway. REVAL: 4:23 PM All data now available and reviewed with patient. Pain improved asking for something for nausea. Ordered. FINAL IMPRESSION 1. Acute hip pain, left 2. Closed compression fracture of L1 lumbar vertebra, initial encounter ([facility]) DISPOSITION Discharge 01/24/2023 04:34:01 PM PATIENT REFERRED TO: Adarsh Duggan MD [address] [place], [place] [id number] In 3 days DISCHARGE MEDICATIONS: New Prescriptions OXYCODONE-ACETAMINOPHEN (PERCOCET) 5-325 MG TABLET Take 1 tablet by mouth every 6 hours as needed for severe pain (7-10) for up to 5 days. (Comment: Please note this report has been produced using speech recognition software and may contain errors related to that system including errors in grammar, punctuation, and spelling, as well as words and phrases that may be inappropriate. If there are any questions or concerns please feel free to contact the dictating provider for clarification.) Temo Hicks MD (electronically signed) Emergency Medicine Provider Temo Hicks MD 01/24/23 [id number] Pt ambulatory to room 15 with c/o left hip pain x 3 days with no known injury. Pt states pain is constant pain that radiates to leg with pain increased with weightbearing and ambulation. documented in this encounter [facility] 01-24-2023 Emergency department Triage note Pt ambulatory to room 15 with c/o left hip pain x 3 days with no known injury. Pt states pain is constant pain that radiates to leg with pain increased with weightbearing and ambulation. [facility] 01-24-2023 Physician Emergency department Note EMERGENCY DEPARTMENT ENCOUNTER Pt Name: Jonathan oMise Birthdate 1950 Date of evaluation: 01/24/2023 ED Provider: Temo Hicks MD CHIEF COMPLAINT Chief Complaint Patient presents with Hip Pain History from patient and daughter HISTORY OF PRESENT ILLNESS (Location/Symptom, Timing/Onset, Context/Setting, Quality, Duration, Modifying Factors, Severity) Note limiting factors. I wore appropriate PPE for the entirety of this encounter. HPI Jonathan Moise is a 72 y.o. female who presents to the emergency department with chief complaint of left hip pain. Patient states the pain began gradually 3 days ago. She states it feels like something is grinding. No fever or injury. No previous problem. No incontinence. Denies cancer or IV drug use but does have osteoporosis. States she also has pain in her lower back. Daughter states this is exactly the same symptoms the daughter had when the daughter had sciatic pain. PCP not available so the patient came the emergency department for diagnosis and pain relief. Has tried Tylenol lidocaine patch and [id number] medications without relief. Nursing Notes were reviewed. Limitations to history: None Outside historians: Family daughter REVIEW OF SYSTEMS Review of Systems Constitutional: Negative for chills and fever. Eyes: Negative for visual disturbance. Respiratory: Negative for shortness of breath. Cardiovascular: Negative for chest pain. Gastrointestinal: Negative for abdominal pain. Genitourinary: Negative for difficulty urinating. Musculoskeletal: Positive for arthralgias, back pain and gait problem. Negative for joint swelling, myalgias, neck pain and neck stiffness. Skin: Negative for color change, pallor and rash. Neurological: Negative for headaches. PAST MEDICAL HISTORY Past Medical History: Diagnosis Date Anemia COPD (chronic obstructive pulmonary disease) (HCC) Coronary artery disease, non-occlusive GERD (gastroesophageal reflux disease) Hypertension Myoclonic disorder Thyroid nodule SURGICAL HISTORY Past Surgical History: Procedure Laterality Date CARDIAC SURGERY cath CARDIAC SURGERY 12/2021 CYST REMOVAL Right Breast THYROID LOBECTOMY Left THYROIDECTOMY TONSILLECTOMY TOTAL ABDOMINAL HYSTERECTOMY Cervix removed CURRENT MEDICATIONS Previous Medications ALBUTEROL 108 (90 BASE) MCG/ACT INHALER Inhale 2 puffs every 6 hours as needed. APIXABAN (ELIQUIS) 5 MG TABLET Take 5 mg by mouth in the morning and 5 mg in the evening. BUDESONIDE-FORMOTEROL (SYMBICORT) 160-4.5 MCG/ACT INHALER Inhale 2 puffs in the morning and 2 puffs in the evening. Rinse mouth with water after use to reduce aftertaste and incidence of candidiasis. Do not swallow.. CLONAZEPAM (KLONOPIN) 2 MG TABLET take 1 tablet by mouth twice a day if needed for anxiety GLUCOSE BLOOD TEST STRIP Infuse into a venous catheter. HYDROCHLOROTHIAZIDE (HYDRODIURIL) 25 MG TABLET Take 1 tablet (25 mg) by mouth daily. LISINOPRIL 20 MG TABLET Take 1 tablet (20 mg) by mouth daily. METOPROLOL SUCCINATE XL (TOPROL-XL) 100 MG 24 HR TABLET take 1 tablet by mouth once daily ALLERGIES Sertraline, Phenytoin, and Levofloxacin FAMILY HISTORY Family History Problem Relation Name Age of Onset High Blood Pressure Mother Stroke Mother Heart disease Mother Cancer Father Cancer Other Paternal Uncle Colon cancer Other Paternal Uncle Other cancer Other Father fam hx Throat CA, colon and leukemia SOCIAL HISTORY Social History Socioeconomic History Marital status: Tobacco Use Smoking status: Every Day Packs/day: 1.00 Years: 40.00 Pack years: 40.00 Types: Cigarettes Smokeless tobacco: Never Social Determinants of Health Financial Resource Strain: High Risk Difficulty of Paying Living Expenses: Very hard Food Insecurity: Food Insecurity Present Worried About Running Out of Food in the Last Year: Sometimes true Ran Out of Food in the Last Year: Sometimes true Transportation Needs: No Transportation Needs Lack of Transportation (Medical): No Lack of Transportation (Non-Medical): No Physical Activity: Inactive Days of Exercise per Week: 0 days Minutes of Exercise per Session: 0 min Housing Stability: Low Risk Unable to Pay for Housing in the Last Year: No Number of Places Lived in the Last Year: 1 Unstable Housing in the Last Year: No SCREENINGS PHYSICAL EXAM ED Triage Vitals Temp Pulse Resp BP -- -- -- -- SpO2 Temp src Heart Rate Source Patient Position -- -- -- -- BP Location FiO2 (%) -- -- Physical Exam Constitutional: Appearance: Normal appearance. HENT: Head: Normocephalic and atraumatic. Eyes: Extraocular Movements: Extraocular movements intact. Pupils: Pupils are equal, round, and reactive to light. Cardiovascular: Rate and Rhythm: Normal rate. Pulmonary: Effort: Pulmonary effort is normal. Musculoskeletal: Cervical back: Normal range of motion. Skin: Capillary Refill: Capillary refill takes less than 2 seconds. Neurological: Mental Status: She is alert. Occasional myoclonic tremors Not febrile not toxic Back mild tenderness over L3 negative straight leg raising bilaterally Left hip -stable pelvis, no point tenderness, no warmth or effusion, full range of motion, distal neurovascular intact Neurologic -strength 5 out of 5 in all 4 extremities, intact light touch all 4 extremities, ambulatory DIAGNOSTIC RESULTS RADIOLOGY (Per Emergency Physician): Lumbarsacral Spine x-ray - no fracture, mild scoliosis Left hip x-ray - no fracture or dislocation; mild joint narrowing, calcified femoral artery Interpretation per the Radiologist below, if available at the time of this note: XR lumbar spine 2 or 3 views Final Result Mild compression deformity of L1 vertebral body. The age of this is uncertain, however does not appear to have been present on a CT of the chest from 2017. Moderate diffuse degenerative changes of the lumbar spine. The bones are osteopenic. Report Dictated on Electronically Signed By: Maged Castro Electronically Signed Date/Time: 01/24/2023 4:19 PM EDT XR hip left 2 or 3 views Final Result No fracture or dislocation of the pelvis or left hip. Mild osteoarthritis of the bilateral hips. Report Dictated on Electronically Signed By: Maged Castro Electronically Signed Date/Time: 01/24/2023 4:15 PM EDT EMERGENCY DEPARTMENT COURSE and DIFFERENTIAL DIAGNOSIS/MDM: Vitals: Vitals: 01/24/23 1524 BP: (!) 180/83 BP Location: Right arm Patient Position: Sitting Pulse: 81 Resp: 14 Temp: 37.2 C (98.9 F) TempSrc: Oral SpO2: 99% Weight: 67.1 kg (148 lb) Height: 1.676 m (5' 6") Medical Decision Making and ED Course The patient presented with a chief complaint of low back pain and left hip pain. The differential diagnosis associated with this patient's presentation includes spinal cord compression vertebral fracture hip fracture arthritis dislocation septic joint. Our workup consisted of ordering/reviewing imaging History and physical exam not consistent with spinal epidural abscess spinal cord compression joint infection. There are no other joints involved making systemic arthritis unlikely. Imaging shows no hip fracture or dislocation but does show DJD. Imaging of the lumbar spine shows mild compression of L1, age of which is uncertain but which could be the etiology of her symptoms. There is no evidence of spinal cord involvement based on normal physical exam. Diagnostic tests and medications considered but not ordered: MRI not available. She has no neurologic findings other than her myoclonic tremors, has no risk factors for spinal abscess or spinal cord compression. Review of prior external records: Office visit 12/30/2022 -nothing related to current visit Independent test interpretation by me: X-ray Chronic conditions impacting care: Hyper lipid irritable bowel coronary artery disease mitral insufficiency fibromyalgia paroxysmal atrial fibrillation claudication depression lung nodule COPD GERD thyroid disease myoclonic tremors ED Medications managed: Hydrocodone given to relieve pain despite epic stating that patient is on a pain plan. When asked patient denies that she is on a pain plan and states she never has been on a pain plan and daughter concurs. Patient states she is not allowed to take ibuprofen which would be the best long-term medication for her. She states the Tylenol and lidocaine patch did not work for her. Daughter request gabapentin and steroids and now agrees after shared decision making that it would be best if her PCP prescribes this, not the emergency department. After much discussion the only medication that she agrees to take would be Percocet. She has been educated the research shows that this is not an effective treatment for her back pain but she requested anyway. REVAL: 4:23 PM All data now available and reviewed with patient. Pain improved asking for something for nausea. Ordered. FINAL IMPRESSION 1. Acute hip pain, left 2. Closed compression fracture of L1 lumbar vertebra, initial encounter ([facility]) DISPOSITION Discharge 01/24/2023 04:34:01 PM PATIENT REFERRED TO: Adarsh Duggan MD [address], [address] [facility] [address] In 3 days DISCHARGE MEDICATIONS: New Prescriptions OXYCODONE-ACETAMINOPHEN (PERCOCET) 5-325 MG TABLET Take 1 tablet by mouth every 6 hours as needed for severe pain (7-10) for up to 5 days. (Comment: Please note this report has been produced using speech recognition software and may contain errors related to that system including errors in grammar, punctuation, and spelling, as well as words and phrases that may be inappropriate. If there are any questions or concerns please feel free to contact the dictating provider for clarification.) Temo Hicks MD (electronically signed) Emergency Medicine Provider Temo Hicks MD 01/24/23 [id number] [facility] 01-05-2023 Telephone encounter Note Reviewed chart. Refill appropriate. RX sent. [facility] 01-05-2023 Miscellaneous Notes Reviewed chart. Refill appropriate. RX sent. Reviewed chart. Refill appropriate. RX sent. Oarrs reviewed and consistent with treatment plan. Will need urine drug screen at next appt. CSA 06/24/22 NO URINE DRUG SCREEN ON FILE Name of caller: Jonathan Contact phone number: [phone] Relationship to Patient: patient Provider: Dr Duggan Practice: [facility] Chief Complaint/Reason for Call: Pt states she was advised this would be called in when she was at her appt 12/30. Pt states it is due today and has other prescriptions she needs to last picker and does not want to make 2 trips. Pt is requesting it is called in this morning and a call back once completed. Please advise. Best time of day caller can be reached: any Patient advised that office/PCP has 24-48 business hours to return their call: No documented in this encounter [facility] 01-05-2023 Telephone encounter Note Reviewed chart. Refill appropriate. RX sent. Oarrs reviewed and consistent with treatment plan. Will need urine drug screen at next appt. [facility] 01-05-2023 Telephone encounter Note [facility]SA 06/24/22 NO URINE DRUG SCREEN ON FILE [facility] 01-05-2023 Telephone encounter Note Name of caller: Jonathan Contact phone number: [phone] Relationship to Patient: patient Provider: Dr Duggan Practice: [facility] Chief Complaint/Reason for Call: Pt states she was advised this would be called in when she was at her appt 12/30. Pt states it is due today and has other prescriptions she needs to last picker and does not want to make 2 trips. Pt is requesting it is called in this morning and a call back once completed. Please advise. Best time of day caller can be reached: any Patient advised that office/PCP has 24-48 business hours to return their call: No [facility] 12-02-2022 Telephone encounter Note Reviewed chart. Refill appropriate. Rx sent. Oarrs reviewed and appropriate with treatment plan. [facility] 12-02-2022 Miscellaneous Notes Reviewed chart. Refill appropriate. Rx sent. Oarrs reviewed and appropriate with treatment plan. Prescription Request: Last medication check: 03/19/22 Last physical exam: 06/24/22 Next scheduled appointment: 12/30/22 CSA on file (date): 06/24/22 Last urine drug screen: 09/30/21 Last date of refill on this medication: 11/04/22 documented in this encounter [facility] 12-02-2022 Telephone encounter Note Prescription Request: Last medication check: 03/19/22 Last physical exam: 06/24/22 Next scheduled appointment: 12/30/22 CSA on file (date): 06/24/22 Last urine drug screen: 09/30/21 Last date of refill on this medication: 11/04/22 [facility] 11-05-2022 Telephone encounter Note LM to relay message Adarsh Duggan MD 1 hour ago (3:01 PM) DW Both prescriptions were refused, but clonazepam was just sent in yesterday for 60 tablets and the metoprolol was sent in in August for 90 tablets with 1 refill. [facility] 11-05-2022 Miscellaneous Notes LM to relay message Adarsh Duggan MD 1 hour ago (3:01 PM) DW Both prescriptions were refused, but clonazepam was just sent in yesterday for 60 tablets and the metoprolol was sent in in August for 90 tablets with 1 refill. Both prescriptions were refused, but clonazepam was just sent in yesterday for 60 tablets and the metoprolol was sent in in August for 90 tablets with 1 refill. [facility] 06/24/22 Ordering provider: Dr. Den Duggan Date of last office visit: 09.09.22 Date of next office visit: 12.30.22 Updated/Validated preferred pharmacy: Yes Patient instructed to contact the pharmacy prior to picking up the medication: Yes (1) Medication name: clonazePAM (KlonoPIN) 2 MG tablet Medication dosage: 2 mg (Miligrams Monthly quantity needed: 60 How many day supply requestin days Medication route: oral (PO) Medication administration time(s): 2 times a day (BID) If taking medication PRN, reason for taking medication: N/A If this is a controlled substance do you receive this or any other controlled medication from any other doctor or facility: No Date of last refill (see medication tab): 11.04.22 (2) Medication name: metoprolol succinate XL (Toprol-XL) 100 MG 24 hr tablet Medication dosage: 100 mg (Miligrams Monthly quantity needed: 30 How many day supply requestin days Medication route: oral (PO) Medication administration time(s): daily If taking medication PRN, reason for taking medication: N/A If this is a controlled substance do you receive this or any other controlled medication from any other doctor or facility: Yes Date of last refill (see medication tab): 09.09.22 documented in this encounter [facility] 11-05-2022 Telephone encounter Note Both prescriptions were refused, but clonazepam was just sent in yesterday for 60 tablets and the metoprolol was sent in in August for 90 tablets with [address] [facility] 11-05-2022 Telephone encounter Note CSA 06/24/22 [facility] 11-05-2022 Telephone encounter Note Ordering provider: Dr. Den Duggan Date of last office visit: 09.09.22 Date of next office visit: 12.30.22 Updated/Validated preferred pharmacy: Yes Patient instructed to contact the pharmacy prior to picking up the medication: Yes (1) Medication name: clonazePAM (KlonoPIN) 2 MG tablet Medication dosage: 2 mg (Miligrams Monthly quantity needed: 60 How many day supply requestin days Medication route: oral (PO) Medication administration time(s): 2 times a day (BID) If taking medication PRN, reason for taking medication: N/A If this is a controlled substance do you receive this or any other controlled medication from any other doctor or facility: No Date of last refill (see medication tab): 11.04.22 (2) Medication name: metoprolol succinate XL (Toprol-XL) 100 MG 24 hr tablet Medication dosage: 100 mg (Miligrams Monthly quantity needed: 30 How many day supply requestin days Medication route: oral (PO) Medication administration time(s): daily If taking medication PRN, reason for taking medication: N/A If this is a controlled substance do you receive this or any other controlled medication from any other doctor or facility: Yes Date of last refill (see medication tab): 09.09.[address] [facility] 11-04-2022 Telephone encounter Note Reviewed chart. Refill appropriate. Rx sent. Oarrs reviewed and consistent with treatment plan [facility] 11-04-2022 Miscellaneous Notes Reviewed chart. Refill appropriate. Rx sent. Oarrs reviewed and consistent with treatment plan Prescription Request: Last medication check: 05/26/22 Last physical exam: 06/24/22 Next scheduled appointment: 12/30/22 CSA on file (date): 07/05/22 Last urine drug screen: 09/30/21 Last date of refill on this medication 10/09/22 documented in this encounter [facility] 11-04-2022 Telephone encounter Note Prescription Request: Last medication check: 05/26/22 Last physical exam: 06/24/22 Next scheduled appointment: 12/30/22 CSA on file (date): 07/05/22 Last urine drug screen: 09/30/21 Last date of refill on this medication 10/09/22 [facility] 10-28-2022 History of Present illness Narrative EMR REVIEWED. NO RECENT OFFICE VISITS NOTED. PMH: MYOCLONIC DISORDER, COPD, CAD, KS WITH STENT, HTN, A-FIB, IBS, ANEMIA, ANXIETY, DEPRESSION PT. STATES SHE HASN'T GOT A BP CUFF YET. PT. STATES SHE DOESN'T LIKE THE WRIST CUFFS. PT. WANTS TO GET ONE, PT. STATED SHE DIDN'T HAVE THE MONEY, BUT SHE STATED SHE IS GOING TO WORK ON IT NOW. CM ENCOURAGED HER TO DO SO. PT. STATES SHE GETS OCC. SOB WHEN WALKING DISTANCES AND AFTER COUGHING. PT. STATES SHE GOT THE SYMBICORT INHALER AND IT SEEMS TO WORKING BETTER. USING ALBUTEROL as NEEDED. PT. STATES SHE IS STILL SMOKING. HAS SMOKED SINCE SHE WAS 15 YEARS OLD. SMOKING 1/2 PPD IN THE PAST FEW WEEKS. DOWN FROM 1 PPD. PT. STATES SHE HAS TRIED TO QUIT COLD TURKEY. STATED NOT COMPLETELY READY TO TRY AND QUIT AGAIN. ENCOURAGED THE PT. TO KEEP CUTTING BACK ON THE AMOUNT AND TO TALK WITH HER PCP ABOUT SMOKING CESSATION AIDS. PT. WAS AGREEABLE. PT. STATED HER SURGICAL SERVICES DIRECTOR WANTED HER TO GET A PACEMAKER. PT. HASN'T SEEN HER SURGICAL SERVICES DIRECTOR SINCE JANUARY 2022. CM ENCOURAGED THE PT. TO CALL HER SURGICAL SERVICES DIRECTOR TODAY TO MAKE A FOLLOW-UP APPT. PT. WAS AGREEABLE. PLAN: PT. WILL GET A BP CUFF TO START MONITORING HER BP'S, CONTINUE TO REDUCE THE AMOUNT OF CIGARETTES SHE IS SMOKING. CALL HER SURGICAL SERVICES DIRECTOR TO MAKE A FOLLOW-UP APPT. CM WILL CONTINUE TO FOLLOW-UP. SCHEDULED NEXT OUTREACH. documented in this encounter [facility] 10-13-2022 Telephone encounter Note LM for patient: Adarsh Duggan MD 4 days ago DW Rx sent, this is to be used twice a day regularly and then the albuterol is to be used between times if needed this is not a rescue inhaler. The computer indicates this is not covered by insurance so it could be very expensive. [facility] 10-13-2022 Miscellaneous Notes LM for patient: Adarsh Duggan MD 4 days ago DW Rx sent, this is to be used twice a day regularly and then the albuterol is to be used between times if needed this is not a rescue inhaler. The computer indicates this is not covered by insurance so it could be very expensive. LM for patient Adarsh Duggan MD 12 minutes ago (3:47 PM) DW Rx sent, this is to be used twice a day regularly and then the albuterol is to be used between times if needed this is not a rescue inhaler. The computer indicates this is not covered by insurance so it could be very expensive. Rx sent, this is to be used twice a day regularly and then the albuterol is to be used between times if needed this is not a rescue inhaler. The computer indicates this is not covered by insurance so it could be very expensive. Name of caller: Christy Contact phone number: [phone] Relationship to Patient: patient Provider: Olga Lidia Practice: [facility] Chief Complaint/Reason for Call: Pt. Would like to go back to the Symbicort Rx. States the Symbicort works faster than the albuterol that was prescribed. Please advise. Best time of day caller can be reached: Any Patient advised that office/PCP has 24-48 business hours to return their call: Yes documented in this encounter [facility] 10-09-2022 Telephone encounter Note LM for patient Adarsh Duggan MD 12 minutes ago (3:47 PM) DW Rx sent, this is to be used twice a day regularly and then the albuterol is to be used between times if needed this is not a rescue inhaler. The computer indicates this is not covered by insurance so it could be very expensive. [facility] 10-09-2022 Telephone encounter Note Rx sent, this is to be used twice a day regularly and then the albuterol is to be used between times if needed this is not a rescue inhaler. The computer indicates this is not covered by insurance so it could be very expensive. [facility] 10-09-2022 Telephone encounter Note Name of caller: Christy Contact phone number: [phone] Relationship to Patient: patient Provider: Olga Lidia Practice: [facility] Chief Complaint/Reason for Call: Pt. Would like to go back to the Symbicort Rx. States the Symbicort works faster than the albuterol that was prescribed. Please advise. Best time of day caller can be reached: Any Patient advised that office/PCP has 24-48 business hours to return their call: Yes [facility] 10-06-2022 Telephone encounter Note Reviewed chart. Refill appropriate. Rx sent. Oarrs reviewed and consistent with treatment plan. [facility] 10-06-2022 Miscellaneous Notes Reviewed chart. Refill appropriate. Rx sent. Oarrs reviewed and consistent with treatment plan. Prescription Request: Last medication check: 03/19/22 Last physical exam: 06/24/22 Next scheduled appointment: 12/30/22 CSA on file (date): 07/09/22 Last urine drug screen: 09/18/21 Last date of refill on this medication 09/11/22 documented in this encounter [facility] 10-06-2022 Telephone encounter Note Prescription Request: Last medication check: 03/19/22 Last physical exam: 06/24/22 Next scheduled appointment: 12/30/22 CSA on file (date): 07/09/22 Last urine drug screen: 09/18/21 Last date of refill on this medication 09/11/22 [facility] 09-05-2022 History of Present illness Narrative EMR REVIEWED. NO RECENT OFFICE VISITS NOTED. PMH: MYOCLONIC DISORDER, COPD, CAD, KS WITH STENT, HTN, A-FIB, IBS, ANEMIA, ANXIETY, DEPRESSION FOLLOW-UP VISITS: 12/30/22-FAMILY MEDICINE COPD MEDS: HAS ALBUTEROL INHALER-USING THE LAST FEW DAYS PT. STATES WAS TAKEN OFF OF SYMBICORT BECAUSE IT WAS RAISING HER BP. DOESN'T HAVE A NEBULIZER DENIES ANY SOB-ONLY WHEN GOING OUT IN THE COLD-TAKES HER BREATH TODAY. HTN MEDS: Hydrochlorothiazide 25MG DAILY METOPROLOL 100MG DAILY LISINOPRIL 20MG DAILY NOT CHECKING BP'S-DOESN'T HAVE A BP CUFF. ENCOURAGED PT. TO GET ONE TO CHECK HER BP DAILY AND KEEP A LOG. PT. AGREED TO DO SO. REVIEWED COPD AND HTN MEDS WITH THE PT. PT. STATED SHE IS GOING TO CALL HER PCP'S OFFICE TODAY TO ASK ABOUT GETTING A NEW PRESCRIPTION FOR SYMBICORT OR ANOTHER INHALER. SHE THINKS IT HELPED HER BREATHING BETTER. CM WILL CONTINUE TO FOLLOW-UP. SCHEDULED NEXT OUTREACH. I agree that a maintenance inhaler would be appropriate. Does she remember how high her BP was getting up to on the Symbicort and what dose she was on? Images from the original note were not included. MITZI Burton CNP [facility] Clinical Cdl Team Truck Driver 10 minutes ago (10:26 AM) HL I agree that a maintenance inhaler would be appropriate. Does she remember how high her BP was getting up to on the Symbicort and what dose she was on? Left a message to return call. Images from the original note were not included. MITZI Burton CNP [facility] Cdl Team Truck Driver 10 minutes ago (10:26 AM) HL I agree that a maintenance inhaler would be appropriate. Does she remember how high her BP was getting up to on the Symbicort and what dose she was on? Left a message to return call. Images from the original note were not included. Taylor Ruby APRN - [facility] Cdl Team Truck Driver 10 minutes ago (10:26 AM) HL I agree that a maintenance inhaler would be appropriate. Does she remember how high her BP was getting up to on the Symbicort and what dose she was on? Left a message to return call. Mailed letter to contact the office. documented in this encounter [facility] 05-28-2022 Hospital Discharge instructions Berenice Zelaya DO - 05/28/2022 6:13 PM EDT Please return the emergency department if your pain worsens or changes. Otherwise please try pain medications at home and follow-up with provider. The following attachments cannot be sent through Care Everywhere.Cervical: Exercises (Malaysian)[facility]: [facility]22 Miscellaneous Notes Post PVAI orders pended for signature - office will call to schedule Driss Joya documented in this encounter [facility] 02-07-2022 Miscellaneous Notes Patient underwent cryotherapy PVI with Dr. Wood on 02/03. She will need a follow-up appointment in 3 months. Andrea Kevin documented in this encounter [facility] 02-07-2022 Note [facility] Medical Records Department [address] [place] [address] Discharge Summary 02/07/22 1115 MR#: [id number] Acct: [id number] Name: CHRISTY MOISE Rep #: [id number] : 1950 71 From: Yeimi Castrejon MD PCP: Dr. Adarsh Duggan MD Status:ADM IN Location: ICU ICU04-1 Providers Date of Admission: 02/06/22 Date of Discharge: 02/07/22 Primary Care Physician: Dr. 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: Status: Chronic Code(s): I25.10 - 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 Medications at Discharge Home Medications tramadol 1 tab PO BID PRN 04/19/19 lisinopril 20 mg PO DAILY 01/08/21 budesonide-formoterol HFA 160 mcg-4.5 mcg/actuation aerosol inhaler 2 puff INHALATION BID 02/05/21 albuterol sulfate 90 mcg/actuation aerosol inhaler 2 puff INHALATION Q4H PRN PRN #8.5 g 08/06/21 hydrochlorothiazide 25 mg tablet 25 mg PO DAILY #90 tab 08/06/21 dronedarone 400 mg tablet 400 mg PO BID #60 tab 08/14/21 clonazepam 2 mg PO BID PRN 12/18/21 apixaban 5 mg tablet 5 mg PO BID #180 tab 01/03/22 aspirin 81 mg capsule 81 mg PO DAILY #90 cap 01/03/22 metoprolol tartrate 100 mg tablet 100 mg PO BID 30 Days #180 tab 01/03/22 amoxicillin-pot clavulanate [Augmentin] 1 tab PO BID 7 Days #14 tab 02/07/22 Hospital Course Operations None Procedures 2-D Echocardiogram Summary of Care Provided Minutes Spent on Discharge: 40 Hospital Course: 71-year-old female with past medical history of paroxysmal A. fib, who was recently discharged from [facility] on 02/04/2022 after she had gone in for cryoablation. Patient presented back with AF with RVR. She was admitted to ICU under stepdown status. She was managed on IV amiodarone. Patient converted to normal sinus rhythm. 2D echo done shows EF of 55 to 60%. Patient was seen by cardiology and recommended follow-up in the outpatient. She was discharged on apixaban, dronedarone and metoprolol. Patient had complained of cough during this hospital stay. Chest x-ray has showed a left lower lobe infiltrate/atelectasis. She was given incentive spirometer. She was given a short course of Augmentin for possible community-acquired pneumonia. Physical Exam Narrative Physical exam: General: Alert, Oriented x3, Cooperative, No apparent distress HEENT: Atraumatic Oral: Moist Mucosa Neck: Supple Lungs: Diminished to auscultation at lung bases Cardiovascular: HS I+II, regular, no murmurs Abdomen: Bowel Sounds Present, Soft, Non Tender Extremities: No edema Skin: No rashes, No breakdown Neurological: Grossly intact, myoclonic jerks Psych/Mental Status: Appropriate Weight / BMI Weight Weight: 67.8 kg Body Mass Index (BMI) 24.7 ABG / Lab / Microbiology Data Result Diagrams: 02/06/22 17:52 02/06/22 17:52 Laboratory: Laboratory Results - last 24 hr 02/06/22 17:52: WBC 11.1 H, RBC 3.79 L, Hgb 12.1, Hct 36.5 L, MCV 96.3, MCH 31.9, MCHC 33.2, RDW Std Deviation 46.5 H, RDW Coeff of Claudia 13.0, Plt Count 250, MPV 10.6, Immature Gran % (Auto) 0.500, Neut % (Auto) 87.2 H, Lymph % (Auto) 6.2 L, [place] % (Auto) 3.5, Eos % (Auto) 2.3, Baso % (Auto) 0.3, Absolute Neuts (auto) 9.7 H, Absolute Lymphs (auto) 0.69 L, Nucleated RBC % 0 02/06/22 17:52: Sodium 139, Potassium 3.8, Chloride 105, Carbon Dioxide 25.0, Anion Gap 9, BUN 12, Creatinine 0.90, Estim Creat Clear Calc 48.11, Est GFR (MDRD) Af Amer 80, Est GFR (MDRD) Non-Af 66, BUN/Creatinine Ratio 13.3, Glucose 190 H, Calcium 9.0, Troponin I High Sens 1619 H* 02/06/22 19:55: Magnesium 2.1 02/06/22 22:19: Troponin I High Sens 1251 H* Radiography Diagnostic Testing: Radiology Impression Chest X-Ray 02/06/22 18:22 IMPRESSION: ASHD. Mild left lower lobe atelectasis or infiltrate Electronically Signed: Jose June MD at 18:38 EDT , Echocardiogram 02/07/22 08:34 Interpretation Summary PT REFUSED IV FOR BUBBLE. The estimated ejection fraction is 55-60 %. Normal LV systolic function Ordering Physician: N (more content not included)... [facility] 02-06-2022 Evaluation note Diagnosis Onset Date Atrial fibrillation with RVR February 06, 2022 acute Elevated troponin February 06, 2022 acute Atherosclerotic heart diseas e of navajo coronary artery without angina pectoris chronic Dizziness resolved Hypotension resolved [facility] Work Phone: 1(519) 729-448305-24-2022 NoteHNO ID: [id number] Author: Dillon Jerry RN Service: Care Management Author Type: Registered Nurse Type: Care Mgt Initial Assessment Filed: 02/04/2022 10:42 AM Note Text: CARE MANAGEMENT: ASSESSMENT AND DISCHARGE PLAN SERVICE DATE: February 04, 2022 SERVICE TIME: 1040 PRIMARY CARE PHYSICIAN: Adarsh Duggan MD ADMISSION STATUS: Extended Recovery NEEDS PRIOR TO DISCHARGE Needs Prior to Discharge: To Be Determined SOCIAL Primary Contact: Extended Emergency Contact Information Primary Emergency Contact: CHANTAL MCCARTY Relation: Spouse Secondary Emergency Contact: Marbin Moise Mobile Relation: Daughter ASSESSMENT AND PLAN: This patient has been screened for Care Management Transitional Planning Services. At this time, it does not appear this patient will require transition planning services. Should this change, and the patient require transition/discharge planning services during this admission, please call [phone]. Dillon Jerry RN February 04, 2022 10:42 AM SIGNATURE: Dillon Jerry RN PATIENT NAME: Christy Moise DATE: February 04, 2022 TIME: 10:[facility] NoteHNO ID: [id number] Author: Priyanka Chase APRN.BRICK TENDER Service: Anesthesiology Author Type: Nurse Video Software Engineer Type: Anesthesia Procedure Notes Filed: 02/03/2022 9:55 AM Note Text: ANESTHESIOLOGY PROCEDURE NOTE Airway General Information Procedure Start Time/Medication Administration: 02/03/2022 9:41 AM Patient location during procedure: OR Timeout Performed Pre-procedure: timeout performed Consent Obtained: Yes Patient identity confirmed: arm band Staffing BRICK TENDER: Priyanka Chase APRN.BRICK TENDER Performed by: CYNDIE Indications and Patient Condition Preoxygenated: yes Patient position: sniffing Difficult Mask: No Indications for airway management: anesthesia anesthesia circuit Method: asleep Final Airway Details Final airway type: endotracheal airway Final Endotracheal Airway: ETT Cuffed: yes Successful intubation technique: direct laryngoscopy Endotracheal tube insertion site: oral Blade: Brandyn Blade size: #4 ETT size (mm): 7.5 Measured from: lips Measurement (cm): 23 Placement verified by: chest auscultation and capnometry Cormack-Lehane Classification: grade I - full view of glottis Number of attempts at approach: 1 Failed airway: no Unrecognized esophageal intubation: no Airway not difficult SIGNATURE: Priyanka Chase APRN.BRICK TENDER PATIENT NAME: Christy Moise DATE: February 03, 2022 TIME: 9:54 AM CSN: [id number]-16-[facility] Miscellaneous Notes* Telephone Encounter - Lana Escalante RN - 01/27/2022 2:27 PM EDT Pt's name has been added to loza procedure board. Lana Escalante RN * Telephone Encounter - VANESSA Schreiber - 01/27/2022 1:59 PM EDT Patient's daughter called back and confirmed, she voiced understanding to all instructions. Maricruz Elam January 27, 2022 1:59 PM * Telephone Encounter - Driss Joya - 01/27/2022 1:23 PM EDT Patient is scheduled for a PVAI Ablation on 02/03/[address] Wood. The hospital will call theday before between 2-5pm with your arrival time. Patient should not eat or drink after midnight theday before the procedure. 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 You will stayovernight for observation. Patient should continue to take medications as prescribed the morning ofthe procedure with just a sip of water but discontinue Multaq 1 week prior to the procedure Covid test on 02/01/22 at 11am at the [facility] [address] [place] [id number] Unable to leave message on daughters phone and other numbers listed are disconnected Driss Joya * Telephone Encounter - Driss Joya - 01/27/2022 1:22 PM EDT Pre procedure covid test ordered Driss Joya [facility] NoteHNO ID: [id number] Author: Caryn Wood MD Service: ? Author Type: Physician Type: Progress Notes Filed: 01/21/2022 6:30 PM Note Text: PRIMARY CARE PHYSICIAN: Renee Espinal [address] [address] REFERRING PHYSICIAN: Juan C Gaytan MD ([facility]) [address] [place] [address] [facility] [id number] Patient Care Team: Adarsh Duggan as PCP - General (Family Practice) Jose Dave as Nurse Practitioner (Cardiology) Juan C Gaytan as Specialty Underground Mine Superintendent (Cardiology) CHIEF COMPLAINT: Evaluation of arrhythmia, atrial fibrillation HISTORY OF PRESENT ILLNESS: Ms. Moise is a 71 year old female who presents today with her daughter/family for evaluation of symptomatic paroxysmal atrial fibrillation. She has a history of coronary artery disease, had inferior STEMI in April 2018. She underwent emergent cardiac catheterization at [facility], had PCI/stent to the proximal RCA. In about August 2018 she was diagnosed with paroxysmal atrial fibrillation, associated with symptoms. She was treated with rate controlling medication, ultimately was also treated with oral anticoagulation therapy for stroke prevention. She experienced recurrent episodes, there was some mention in the available medical records of problems with compliance with the medications but nevertheless was experiencing excessively bothersome symptoms from the recurrent episodes. In June 2020 she was treated with antiarrhythmic drug therapy, with dronedarone (Multaq). She has continued to experience recurrences of the atrial fibrillation, associated with bothersome symptoms. There was mention of previous cardioversion, it appears from my review of the records that she underwent attempts at electrical cardioversion in [facility] ER in about 06/2021, which were described as "unsuccessful" --- she was then admitted to the hospital and spontaneously converted back to sinus rhythm. I do not find any other records of electrical cardioversion, either electively or emergently including fairly extensive review of [facility] records here in the [facility] EMR. So I think primarily she has paroxysmal form of atrial fibrillation. She presents today to discuss treatment options for the atrial fibrillation, given the failure of the medical therapy. She particularly wants to discuss the option of catheter ablation. I have confirmed and edited as necessary, the PFSH and ROS obtained by others. PAST MEDICAL HISTORY Diagnosis Date - Anemia - Anticoagulant long-term use indication: stroke prevention atrial fibrillation ([id number] = 4) - At risk for stroke [id number] = 4 (HTN, age, CAD, female gender) - Atherosclerotic heart disease - COPD (chronic obstructive pulmonary disease) (HCC) - Coronary artery disease involving navajo coronary artery of navajo heart without angina pectoris s/p inferior STEMI 04/2018, s/p PCI/stent to RCA - Dizziness - History of coronary artery stent placement - History of ST elevation myocardial infarction (STEMI) - HLD (hyperlipidemia) - Hypertension - Irritable bowel syndrome - Left atrial enlargement - Lightheadedness - half-way current use of antiarrhythmic drug indication: symptomatic atrial fibrillation - Myoclonic disorder - Myoclonus - Near syncope - Palpitations - Paroxysmal atrial fibrillation (HCC) diagnosed 08/2018; symptomatic; treated with dronedarone (Multaq) 06/2020; experiencing recurrent symptomatic episodes - Pulmonary HTN (HCC) - Sigmoid diverticulitis - ST-segment elevation myocardial infarction (STEMI) of inferior wall (HCC) 04/2018 inferior STEMI 04/2018, underwent emergent PCI/stent to RCA by Dr. Levy at [facility] - Thyroid nodule - Tobacco abuse PAST SURGICAL HISTORY Procedure Laterality Date - BREAST SURGERY HX Left breast - cyst removal - CHEST X-RAY 12/18/2021 [facility] - ECHO 01/08/2021 [facility] - EVENT MONITOR 03/30/2019 [facility] - HEMORRHOIDECTOMY - HYSTERECTOMY HX - INSERT INTRACORONARY STENT 2017 PCI/stent to RCA; Dr. Levy, [facility] - LEFT HEART CATH,PERCUTANEOUS 05/09/2018 ST Elevation @ [facility] - THYROIDECTOMY TOTAL/COMPLETE SOCIAL HISTORY Social History Tobacco Use - Smoking status: Current Every Day Smoker Packs/day: 1.00 Types: Cigarettes Start date: 1963 - Smokeless tobacco: Never Used Substance Use Topics - Alcohol use: No - Drug use: No FAMILY HISTORY Problem Relation Age of Onset - Stroke Mother - Hypertension Mother - Coronary Artery Disease Mother - other (CEREBRAL VASCULAR) Mother - Cancer Father leukemia, throat - Colon Cancer Father - Brain Cancer Sister - Leukemia Brother ALLERGIES: ALLERGIES Allergen Reactions - Sertraline Other: See Comments - Levofloxacin Rash Other reaction(s): Rash - Phenytoin Swelli (more content not included)...[facility] 01-21-2022 Nurse Note* Marcela Oro MA - 01/21/2022 10:24 AM EDT Patient denies any cardiac issues or symptoms. [facility] History of Present illness Narrative* Caryn Wood MD - 01/21/2022 10:20 AM EDT PRIMARY CARE PHYSICIAN: Renee Espinal, [address] [address] REFERRING PHYSICIAN: Juan C Gaytan MD ([facility]) [address] [address] Patient Care Team: Adarsh Duggan as PCP - General (Family Practice) Jose Dave as Nurse Practitioner (Cardiology) Juan C Gaytan as Specialty Underground Mine Superintendent (Cardiology) CHIEF COMPLAINT: Evaluation of arrhythmia, atrial fibrillation HISTORY OF PRESENT ILLNESS: Ms. Moise is a 71 year old female who presents today with her daughter/family for evaluation of symptomatic paroxysmal atrial fibrillation. She has a history of coronary artery disease, had inferior STEMI in April 2018. She underwent emergent cardiac catheterization at [facility], had PCI/stent to the proximal RCA. In about August 2018 she was diagnosed with paroxysmal atrial fibrillation, associated with symptoms. She was treated with rate controlling medication, ultimately was also treated with oral anticoagulation therapy for stroke prevention. She experienced recurrent episodes, there was some mention in the available medical records of problems with compliance with the medications but nevertheless was experiencing excessively bothersome symptoms from the recurrent episodes. In June 2020 she was treated with antiarrhythmic drug therapy, with dronedarone (Multaq). She has continued to experience recurrences of the atrial fibrillation, associated with bothersome symptoms. There was mention of previous cardioversion, it appears from my review of the records that she underwent attempts at electrical cardioversion in [facility] ER in about 06/2021, which were described as "unsuccessful" --- she was then admitted to the hospital and spontaneously converted back to sinus rhythm. I do not find any other records of electrical cardioversion, either electively or emergently including fairly extensive review of [facility] records here in the [facility] EMR. So I think primarily she has paroxysmal form of atrial fibrillation. She presents today to discuss treatment options for the atrial fibrillation, given the failure of the medical therapy. She particularly wants to discuss the option of catheter ablation. I have confirmed and edited as necessary, the PFSH and ROS obtained by others. PAST MEDICAL HISTORY Diagnosis Date Anemia Anticoagulant long-term use indication: stroke prevention atrial fibrillation ([id number] = 4) At risk for stroke [id number] = 4 (HTN, age, CAD, female gender) Atherosclerotic heart disease COPD (chronic obstructive pulmonary disease) (HCC) Coronary artery disease involving navajo coronary artery of navajo heart without angina pectoris s/p inferior STEMI 04/2018, s/p PCI/stent to RCA Dizziness History of coronary artery stent placement History of ST elevation myocardial infarction (STEMI) HLD (hyperlipidemia) Hypertension Irritable bowel syndrome Left atrial enlargement Lightheadedness half-way current use of antiarrhythmic drug indication: symptomatic atrial fibrillation Myoclonic disorder Myoclonus Near syncope Palpitations Paroxysmal atrial fibrillation (HCC) diagnosed 08/2018; symptomatic; treated with dronedarone (Multaq) 06/2020; experiencing recurrent symptomatic episodes Pulmonary HTN (HCC) Sigmoid diverticulitis ST-segment elevation myocardial infarction (STEMI) of inferior wall (HCC) 04/2018 inferior STEMI 04/2018, underwent emergent PCI/stent to RCA by Dr. Levy at [facility] Thyroid nodule Tobacco abuse PAST SURGICAL HISTORY Procedure Laterality Date BREAST SURGERY HX Left breast - cyst removal CHEST X-RAY 12/18/2021 [facility] ECHO 01/08/2021 [facility] EVENT MONITOR 03/30/2019 [facility] HEMORRHOIDECTOMY HYSTERECTOMY HX INSERT INTRACORONARY STENT 2017 PCI/stent to RCA; Dr. Levy, [facility] LEFT HEART CATH,PERCUTANEOUS 05/09/2018 ST Elevation @ [facility] THYROIDECTOMY TOTAL/COMPLETE SOCIAL HISTORY Social History Tobacco Use Smoking status: Current Every Day Smoker Packs/day: 1.00 Types: Cigarettes Start date: 1962 Smokeless tobacco: Never Used Substance Use Topics Alcohol use: No Drug use: No FAMILY HISTORY Problem Relation Age of Onset Stroke Mother Hypertension Mother Coronary Artery Disease Mother other (CEREBRAL VASCULAR) Mother Cancer Father leukemia, throat Colon Cancer Father Brain Cancer Sister Leukemia Brother ALLERGIES: ALLERGIES Allergen Reactions Sertraline Other: See Comments Levofloxacin Rash Other reaction(s): Rash Phenytoin Swelling MEDICATIONS: ELIQUIS 5 mg tab(s), Take 5 mg by mouth twice daily. traMADol (ULTRAM) 50 mg tablet, Take 50 mg by mouth twice daily. metoprolol tartrate, short acting, (LOPRESSOR) 100 mg tablet, Take 100 mg by mouth twice daily. lisinopril (ZESTRIL, PRINIVIL) 20 mg tablet, Take 1 tablet by mouth once daily. dronedarone (MULTAQ) 400 mg tab, Take 1 tablet by mouth twice daily with meals. clonazePAM (KLONOPIN) 2 mg tablet, Take 2 mg by mouth twice daily as needed for anxiety. aspirin, enteric coated (ASPIRIN, ENTERIC COATED) 81 mg EC tablet, Take 81 mg by mouth. albuterol HFA (VENTOLIN HFA) 90 mcg/actuation inhaler, Inhale 2 puffs into the lungs every 6 hours as needed for Wheezing hydroCHLOROthiazide (HYDRODIURIL, ESIDRIX) 25 mg tablet, Take 25 mg by mouth once daily. REVIEW OF SYSTEMS: Review of Systems Constitutional: Positive for malaise/fatigue. Negative for chills and fever. Respiratory: Positive for shortness of breath. Negative for hemoptysis. Cardiovascular: Positive for chest pain (chest "burning" during arrhythmia) and palpitations. Negative for orthopnea, leg swelling and PND. Gastrointestinal: Negative for abdominal pain, blood in stool, nausea and vomiting. Genitourinary: Negative for hematuria. Skin: Negative for rash. Neurological: Positive for dizziness (during arrhythmia). Negative for loss of consciousness. All other systems reviewed and are negative. PHYSICAL EXAMINATION: BP 142/72 Pulse 52 Resp 18 Ht 5' 7" (1.70m) Wt 145 lb (65.8kg) SpO2 96[room air]% BMI 22.71 kg/(m^2). Physical Exam Vitals reviewed. Constitutional: General: She is not in acute distress. HENT: Head: Normocephalic and atraumatic. Cardiovascular: Rate and Rhythm: Regular rhythm. Bradycardia present. Heart sounds: Normal heart sounds, S1 normal and S2 normal. No murmur heard. No friction rub. Pulmonary: Effort: Pulmonary effort is normal. No respiratory distress. Breath sounds: Wheezing (few scattered wheezes) and rhonchi present. No rales. Musculoskeletal: Cervical back: Neck supple. Right lower leg: No edema. Left lower leg: No edema. Skin: General: Skin is warm and dry. Neurological: General: No focal deficit present. Mental Status: She is alert and oriented to person, place, and time. Psychiatric: Mood and Affect: Mood normal. Behavior: Behavior normal. Thought Content: Thought content normal. CARDIOVASCULAR MEDICINE TESTING: Electrocardiogram: Sinus bradycardia 51 bpm; normal conduction intervals (GA 150 ms, QRS 82 ms); QTc 488 ms; appropriate on dronedarone; possible left atrial enlargement; nonspecific ST abnormality I have personally reviewed the Electrocardiogram. ASSESSMENT/PLAN: 1. Paroxysmal atrial fibrillation (HCC) - ICD9: 427.31, ICD10: I48.0 (primary diagnosis) 2. Palpitations - ICD9: 785.1, ICD10: R00.2 3. half-way current use of antiarrhythmic drug - ICD9: V58.69, ICD10: Z79.899 4. Coronary artery disease involving navajo coronary artery of navajo heart without angina pectoris- ICD9: 414.01, ICD10: I25.[address] elevation myocardial infarction (STEMI) - ICD9: 412, ICD10: I25.2 6. S/P angioplasty with stent - ICD9: V45.89, ICD10: Z95.820 7. At risk for stroke - ICD9: V15.89, ICD10: Z91.89 8. Anticoagulant long-term use - ICD9: V58.61, ICD10: Z79.01 9. Tobacco abuse - ICD9: 305.1, ICD10: Z72.0 10. Chronic obstructive pulmonary disease, unspecified COPD type (HCC) - ICD9: 496, ICD10: J44.9 IMPRESSION: Ms. Moise has been experiencing recurrent paroxysmal atrial fibrillation associated with excessively bothersome symptoms, refractory to medical therapy including an antiarrhythmic drug. I did discusswith her the treatment options at this point, including other antiarrhythmic drugs or catheter ablation. After our extensive discussion, she prefers catheter ablation. I think she is a very reasonable candidate. She expressed understanding that the procedure would be performed without interruption of the oral anticoagulation therapy (Eliquis). I will have her discontinue Multaq about 1 week priorto the procedure. She also expressed understanding that the procedure is performed with the use of general anesthesia. She asked about whether she would need to continue with oral anticoagulation therapy in the future, which led to a detailed discussion in this regard. I informed her that the decision about stroke prevention from atrial fibrillation is based upon risk profile and not upon perceived atrial fibrillation burden. Therefore, per current practice guidelines, regardless of whether theatrial fibrillation is considered to be suppressed or eliminated with either medical therapy or catheter ablation, the decision whether to continue with oral anticoagulation therapy is based on risk profile. She has [id number] score of four, is considered at high risk for stroke and as such I doubt that I would recommend she ever discontinue oral anticoagulation therapy unless there is a competing risk for such therapy. She expressed understanding. I had a detailed discussion with Ms. Moise and her family regarding my evaluation and recommendations. After our discussion, Ms. Moise and her family expressed understanding and I answered all questions to their apparent satisfaction. Ms. Moise would like to proceed with atrial fibrillation catheter ablation. Educational literature regarding atrial fibrillation and catheter ablation provided. INFORMED CONSENT The risks, benefits and anticipated outcomes of the procedure, the risks and benefits of the alternatives to the procedure and the roles and tasks of the personnel to be involved were discussed with the patient. Consent for the procedure and agreement to proceed has been obtained. I verify that I personally obtained the consent. Ms. Moise and I will sign the electronic consent form on the day of the procedure. PLAN AND RECOMMENDATIONS: Proceed with scheduling of atrial fibrillation catheter ablation. My office will be contacting her to schedule the procedure. Discontinue Multaq one week prior to the procedure. Eliquis will not be interrupted for the procedure. Caryn Wood MD 01/21/2022 Medical Decision Making: Problems: Moderate: 1+ chronic illnesses with change Data: Unique source(s) for external note(s) reviewed: 3+ Unique test result(s) reviewed: 3+ Unique test(s) ordered: 1 Risk: Moderate: Moderate risk from testing/treatment, Drug management and Decision on minor surgery w/ risk factors Medical Decision Making Level: 4 - Moderate [facility] Medical Records Department [address] [place] [address] Discharge Summary 12/19/21 1115 MR#: [id number] Acct: [id number] Name: CHRISTY MOISE Rep #: [id number] : 1950 71 From: Leanna John NP [employer] PCP: Dr. Adarsh Duggan MD Status:DIS IN Location: [facility] [id number] Documented by User: Leannajanneth John NP, [employer] 12/19/21 11:34 Providers Date of Admission: 12/18/21 Date of Discharge: 12/19/21 Primary Care Physician: Dr. Adarsh Duggan MD Consultations 12/18/21 17:21 Consult: Cardiology Routine Consulting Provider: Yousif Mendoza Reason for Consult: PAF EMERGENT Consult: No MD Notified: Yes Date Notified: 12/18/21 Time Notified: 16:17 Method of Notification: Verbal Reason For Visit: AFIB WITH RVR Diagnosis Discharge Diagnosis (1) Atrial fibrillation with RVR: Status: Acute Code(s): I48.91 - Unspecified atrial fibrillation (2) History of coronary artery stent placement: Status: Chronic Code(s): Z95.5 - Presence of coronary angioplasty implant and graft (3) Essential hypertension: Status: Acute Code(s): I10 - Essential (primary) hypertension Medications at Discharge Home Medications tramadol 1 tab PO BID PRN 04/19/19 lisinopril 20 mg PO DAILY 01/08/21 budesonide-formoterol HFA 160 mcg-4.5 mcg/actuation aerosol inhaler 2 puff INHALATION BID 02/05/21 albuterol sulfate 90 mcg/actuation aerosol inhaler 2 puff INHALATION Q4H PRN PRN #8.5 g 08/06/21 hydrochlorothiazide 25 mg tablet 25 mg PO DAILY #90 tab 08/06/21 dronedarone 400 mg tablet 400 mg PO BID #60 tab 08/14/21 clonazepam 2 mg PO BID PRN 12/18/21 Eliquis 5 mg PO BID #60 tab 12/19/21 aspirin 81 mg PO DAILY #30 cap 12/19/21 metoprolol tartrate 100 mg PO BID 30 Days #60 tab 12/19/21 Hospital Course Operations None Procedures None Summary of Care Provided Hospital Course: Patient is a 71-year-old female admitted 12/18/2021 due to A. fib with RVR. 1. A. fib with RVR-troponin negative. Cardiology consulted. Increased metoprolol to short acting 100 mg twice daily. Continue home Multaq. Patient recently ran out of Fincon, given Rx at discharge and discussed importance of compliance. Patient and daughter interested in referral for EP evaluation which had been previously mentioned by cardiology. Follow-up with cardiology in 1 week and further discuss EP referral for ablation. 2. CAD with history of PCI to RCA/hypertension-continue lisinopril, Toprol, HCTZ. Initiated on aspi rin. Not on statin. 3. Chronic COPD/pulmonary hypertension-continue home inhaler regimen. 4. Tobacco dependence-encouraged cessation. 5. Myoclonic disorder-on as needed benzodiazepine. Patient seen and examined prior to discharge. Physical assessment as noted above. Patient is stable for discharge with follow up recommendations as noted above. This patient was seen by MATT Johnson under the supervision of Dr. Franks. Time spent examining patient, reviewing data and subsequent management of care: Physical Exam Const alert, oriented x3 and no apparent distress Orientation / Consciousness: awake, oriented to person, oriented to place and oriented to time HEENT normocephalic and moist oral mucous membranes Eyes PERRL, EOMs intact bilaterally and conjunctivae normal Neck no lymphadenopathy Resp clear to auscultation bilaterally Auscultation: diminished lung sounds Cardio regular rate, regular rhythm and no murmurs Peripheral Pulses: pulses 2+ throughout GI normal to inspection, nondistended, normoactive bowel sounds, non-tender and non-distended Extremity normal to inspection Skin no rashes or lesions noted Lesions: no lesions Rashes: no rashes Trauma: no lacerations or abrasions Neuro CN's II-XII intact bilaterally, no focal motor deficits, no sensory deficits noted and deep tendon reflexes 2+ bilaterally Psych mental status grossly normal and affect normal Weight / BMI Weight Weight: 148 lb 8 oz Body Mass Index (BMI) 23.9 ABG / Lab / Microbiology Data Result Diagrams: 12/18/21 11:25 12/19/21 04:26 Laboratory: Laboratory Results - last 24 hr 12/18/21 11:25: WBC 8.9, RBC 4.24, Hgb 13.3, Hct 40.8, MCV 96.2, MCH 31.4, MCHC 32.6, RDW Std Deviation 47.0 H, RDW Coeff of Claudia 13.2, Plt Count 300, MPV 10.4, Immature Gran % (Auto) 0.300, Neut % (Auto) 73.9 H, Lymph % (Auto) 16.8 L, [place] % (Auto) 6.8, Eos % (Auto) 1.6, Baso % (Auto) 0.6, Absolute Neuts (auto) 6.6, Absolute Lymphs (auto) 1.50, Nucleated RBC % 0 12/18/21 11:25: Sodium 137, Potassium 4.2, Chloride 106, Carbon Dioxide 27.0, Anion Gap 4 L, BUN 18, Creatinine 1.25 H, Estim Creat Clear Calc 39.20, Est GFR (MDRD) Af Amer 54 L, Est GFR (MDRD) Non-Af 45 L, BUN/Creatinine Ratio 14.4, Glucose 128 H, Calcium 9.8, Troponin I High Sens 24 12/18/21 14:09: Troponin I High Sens 31 12/18 (more content not included)...[facility] Onset Date Resolution Status Atrial fibrillation with RVR acute Creatinine elevation acute Lightheadedness acute Nausea acute [facility] Work Phone: Evaluation note* Diagnosis Onset Date Resolution Status Atrial fibrillation with RVR acute Creatinine elevation acute Essential hypertension acute Lightheadedness acute Nausea acute History of coronary artery stent placement April chronic [facility] Work Phone: Evaluation note* Diagnosis Paroxysmal atrial fibrillation (HCC)- Primary Atrial fibrillation 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 Coronary artery disease involving navajo coronary artery of navajo heart without angina pectoris History of ST elevation myocardial infarction (STEMI) Old myocardial infarction S/P angioplasty with stent Other postprocedural status At risk for stroke Other specified personal history presenting hazards to health Anticoagulant long-term use Long-term (current) use of anticoagulants Tobacco abuse Tobacco use disorder Chronic obstructive pulmonary disease, unspecified COPD type (HCC) [facility] Diagnosis Pre-procedure lab exam- Primary Pre-procedural laboratory examination Paroxysmal atrial fibrillation (HCC) Atrial fibrillation Coronary artery disease involving navajo coronary artery of navajo heart without angina pectoris Palpitations half-way current use of antiarrhythmic drug Anticoagulant long-term use Long-term (current) use of anticoagulants Chronic obstructive pulmonary disease, unspecified COPD type (HCC) Tobacco abuse Tobacco use disorder [facility] this [facility]* Diagnosis Persistent atrial fibrillation (HCC)- Primary Atrial fibrillation Dyspnea, unspecified type [facility] Neck pain- Primary Cervicalgia Torticollis Torticollis, unspecified documented in this encounter [facility] Work Phone: Evaluation note* Diagnosis Neck pain- Primary Cervicalgia Torticollis Torticollis, unspecified documented in this encounter [facility] Work Phone: Evaluation note* Diagnosis Anxiety Anxiety state, unspecified [facility] Diagnosis Acute hip pain, left- Primary Closed compression fracture of L1 lumbar vertebra, initial encounter ([facility] Diagnosis Chronically on benzodiazepine therapy- Primary Anxiety Anxiety state, unspecified [facility] Diagnosis Viral URI with cough- Primary Chronic obstructive pulmonary disease, unspecified COPD type ([facility]) Smoker Tobacco use disorder [facility] Diagnosis Menopause Symptomatic menopausal or female climacteric states [facility] Diagnosis Osteoporosis, unspecified osteoporosis type, unspecified pathological fracture presence- Primary [facility] Diagnosis Medicare annual wellness visit, subsequent- Primary Anxiety Anxiety state, unspecified Peripheral vascular disease, unspecified ([facility]) Peripheral vascular disease, unspecified Chronic obstructive pulmonary disease, unspecified COPD type (HCC) Essential hypertension Unspecified essential hypertension Coronary artery disease involving navajo coronary artery of navajo heart without angina pectoris Paroxysmal atrial fibrillation (HCC) Atrial fibrillation Pure hypercholesterolemia Osteoporosis without current pathological fracture, unspecified osteoporosis type [facility] Diagnosis Anxiety Anxiety state, unspecified [facility] Diagnosis Mass of left side of neck- Primary Neuropathy Mononeuritis of unspecified site Anxiety Anxiety state, unspecified Chronic obstructive pulmonary disease, unspecified COPD type (HCC) Essential hypertension Unspecified essential hypertension [facility] Diagnosis Mass of left side of neck [facility] Diagnosis Anxiety Anxiety state, unspecified [facility] Diagnosis Neuropathy Mononeuritis of unspecified site [facility] Diagnosis Chronic obstructive pulmonary disease, unspecified COPD type (HCC)- Primary Essential hypertension Unspecified essential hypertension Paroxysmal atrial fibrillation (HCC) Atrial fibrillation Pure hypercholesterolemia Chronic cough Cough Osteoporosis, unspecified osteoporosis type, unspecified pathological fracture presence- Primary Back strain, subsequent encounter Medicare annual wellness visit, subsequent- Primary Anxiety Anxiety state, unspecified Peripheral vascular disease, unspecified (HCC) Peripheral vascular disease, unspecified Chronic obstructive pulmonary disease, unspecified COPD type (HCC) Essential hypertension Unspecified essential hypertension Coronary artery disease involving navajo coronary artery of navajo heart without angina pectoris Paroxysmal atrial fibrillation (HCC) Atrial fibrillation Pure hypercholesterolemia Osteoporosis without current pathological fracture, unspecified osteoporosis type Mass of left side of neck- Primary Neuropathy Mononeuritis of unspecified site Anxiety Anxiety state, unspecified Chronic obstructive pulmonary disease, unspecified COPD type (HCC) Essential hypertension Unspecified essential hypertension Medicare annual wellness visit, subsequent- Primary Paroxysmal atrial fibrillation (HCC) Atrial fibrillation Chronic obstructive pulmonary disease, unspecified COPD type (HCC) Myoclonic disorder Coronary artery disease involving navajo coronary artery of navajo heart without angina pectoris Pure hypercholesterolemia Depressive disorder Depressive disorder, not elsewhere classified Anxiety Anxiety state, unspecified Cigarette smoker Tobacco use disorder Screening for diabetes mellitus Influenza vaccine refused [facility] Diagnosis Encounter for screening for malignant neoplasm of respiratory organs- Primary [facility] Diagnosis Anxiety Anxiety state, unspecified [facility] Diagnosis Nicotine dependence, cigarettes, uncomplicated- Primary [facility]* Diagnosis Anxiety Anxiety state, unspecified [facility]* Diagnosis Chronic obstructive pulmonary disease, unspecified COPD type (HCC)- Primary Essential hypertension Unspecified essential hypertension Paroxysmal atrial fibrillation (HCC) Atrial fibrillation Pure hypercholesterolemia Chronic cough Cough Osteoporosis, unspecified osteoporosis type, unspecified pathological fracture presence- Primary Back strain, subsequent encounter Medicare annual wellness visit, subsequent- Primary Anxiety Anxiety state, unspecified Peripheral vascular disease, unspecified (HCC) Peripheral vascular disease, unspecified Chronic obstructive pulmonary disease, unspecified COPD type (HCC) Essential hypertension Unspecified essential hypertension Coronary artery disease involving navajo coronary artery of navajo heart without angina pectoris Paroxysmal atrial fibrillation (HCC) Atrial fibrillation Pure hypercholesterolemia Osteoporosis without current pathological fracture, unspecified osteoporosis type Mass of left side of neck- Primary Neuropathy Mononeuritis of unspecified site Anxiety Anxiety state, unspecified Chronic obstructive pulmonary disease, unspecified COPD type (HCC) Essential hypertension Unspecified essential hypertension Medicare annual wellness visit, subsequent- Primary Paroxysmal atrial fibrillation (HCC) Atrial fibrillation Chronic obstructive pulmonary disease, unspecified COPD type (HCC) Myoclonic disorder Coronary artery disease involving [place] coronary artery of [place] heart without angina pectoris Pure hypercholesterolemia Depressive disorder Depressive disorder, not elsewhere classified Anxiety Anxiety state, unspecified Cigarette smoker Tobacco use disorder Screening for diabetes mellitus Influenza vaccine refused Neuropathy Mononeuritis of unspecified site documented in this [facility]* Diagnosis Chronic obstructive pulmonary disease, unspecified COPD type (HCC)- Primary Essential hypertension Unspecified essential hypertension Paroxysmal atrial fibrillation (HCC) Atrial fibrillation Pure hypercholesterolemia Chronic cough Cough Osteoporosis, unspecified osteoporosis type, unspecified pathological fracture presence- Primary Back strain, subsequent encounter Medicare annual wellness visit, subsequent- Primary Anxiety Anxiety state, unspecified Peripheral vascular disease, unspecified (HCC) Peripheral vascular disease, unspecified Chronic obstructive pulmonary disease, unspecified COPD type (HCC) Essential hypertension Unspecified essential hypertension Coronary artery disease involving [place] coronary artery of [place] heart without angina pectoris Paroxysmal atrial fibrillation (HCC) Atrial fibrillation Pure hypercholesterolemia Osteoporosis without current pathological fracture, unspecified osteoporosis type Mass of left side of neck- Primary Neuropathy Mononeuritis of unspecified site Anxiety Anxiety state, unspecified Chronic obstructive pulmonary disease, unspecified COPD type (HCC) Essential hypertension Unspecified essential hypertension Medicare annual wellness visit, subsequent- Primary Paroxysmal atrial fibrillation (HCC) Atrial fibrillation Chronic obstructive pulmonary disease, unspecified COPD type (HCC) Myoclonic disorder Coronary artery disease involving [place] coronary artery of nav[place] heart without angina pectoris Pure hypercholesterolemia Depressive disorder Depressive disorder, not elsewhere classified Anxiety Anxiety state, unspecified Cigarette smoker Tobacco use disorder Screening for diabetes mellitus Influenza vaccine refused Cigarette smoker Tobacco use disorder [facility]* Diagnosis Chronic obstructive pulmonary disease, unspecified COPD type (HCC)- Primary Essential hypertension Unspecified essential hypertension Paroxysmal atrial fibrillation (HCC) Atrial fibrillation Pure hypercholesterolemia Chronic cough Cough Osteoporosis, unspecified osteoporosis type, unspecified pathological fracture presence- Primary Back strain, subsequent encounter Medicare annual wellness visit, subsequent- Primary Anxiety Anxiety state, unspecified Peripheral vascular disease, unspecified (HCC) Peripheral vascular disease, unspecified Chronic obstructive pulmonary disease, unspecified COPD type (HCC) Essential hypertension Unspecified essential hypertension Coronary artery disease involving [place] coronary artery of [place] heart without angina pectoris Paroxysmal atrial fibrillation (HCC) Atrial fibrillation Pure hypercholesterolemia Osteoporosis without current pathological fracture, unspecified osteoporosis type Mass of left side of neck- Primary Neuropathy Mononeuritis of unspecified site Anxiety Anxiety state, unspecified Chronic obstructive pulmonary disease, unspecified COPD type (HCC) Essential hypertension Unspecified essential hypertension Medicare annual wellness visit, subsequent- Primary Paroxysmal atrial fibrillation (HCC) Atrial fibrillation Chronic obstructive pulmonary disease, unspecified COPD type (HCC) Myoclonic disorder Coronary artery disease involving [place] coronary artery of nav[place] heart without angina pectoris Pure hypercholesterolemia Depressive disorder Depressive disorder, not elsewhere classified Anxiety Anxiety state, unspecified Cigarette smoker Tobacco use disorder Screening for diabetes mellitus Influenza vaccine refused Neuropathy Mononeuritis of unspecified site documented [facility]* Diagnosis Chronic obstructive pulmonary disease, unspecified COPD type (HCC)- Primary Essential hypertension Unspecified essential hypertension Paroxysmal atrial fibrillation (HCC) Atrial fibrillation Pure hypercholesterolemia Chronic cough Cough Osteoporosis, unspecified osteoporosis type, unspecified pathological fracture presence- Primary Back strain, subsequent encounter Medicare annual wellness visit, subsequent- Primary Anxiety Anxiety state, unspecified Peripheral vascular disease, unspecified (HCC) Peripheral vascular disease, unspecified Chronic obstructive pulmonary disease, unspecified COPD type (HCC) Essential hypertension Unspecified essential hypertension Coronary artery disease involving [place] coronary artery of [place] heart without angina pectoris Paroxysmal atrial fibrillation (HCC) Atrial fibrillation Pure hypercholesterolemia Osteoporosis without current pathological fracture, unspecified osteoporosis type Mass of left side of neck- Primary Neuropathy Mononeuritis of unspecified site Anxiety Anxiety state, unspecified Chronic obstructive pulmonary disease, unspecified COPD type (HCC) Essential hypertension Unspecified essential hypertension Medicare annual wellness visit, subsequent- Primary Paroxysmal atrial fibrillation (HCC) Atrial fibrillation Chronic obstructive pulmonary disease, unspecified COPD type (HCC) Myoclonic disorder Coronary artery disease involving [place] coronary artery of nav[place] heart without angina pectoris Pure hypercholesterolemia Depressive disorder Depressive disorder, not elsewhere classified Anxiety Anxiety state, unspecified Cigarette smoker Tobacco use disorder Screening for diabetes mellitus Influenza vaccine refused Chronic obstructive pulmonary disease, unspecified COPD type (HCC)- Primary Paroxysmal atrial fibrillation (HCC) Atrial fibrillation Coronary artery disease involving [place] coronary artery of nav[place] heart without angina pectoris Neuropathy Mononeuritis of unspecified site Essential hypertension Unspecified essential hypertension Fibromyalgia Unspecified myalgia and myositis Cigarette smoker Tobacco use disorder Anxiety Anxiety state, unspecified Pure hypercholesterolemia Ganglion cyst of wrist, left Depressive disorder Depressive disorder, not elsewhere classified [facility]* Diagnosis Chronic obstructive pulmonary disease, unspecified COPD type (HCC)- Primary Essential hypertension Unspecified essential hypertension Paroxysmal atrial fibrillation (HCC) Atrial fibrillation Pure hypercholesterolemia Chronic cough Cough Osteoporosis, unspecified osteoporosis type, unspecified pathological fracture presence- Primary Back strain, subsequent encounter Medicare annual wellness visit, subsequent- Primary Anxiety Anxiety state, unspecified Peripheral vascular disease, unspecified (HCC) Peripheral vascular disease, unspecified Chronic obstructive pulmonary disease, unspecified COPD type (HCC) Essential hypertension Unspecified essential hypertension Coronary artery disease involving nav[place] coronary artery of nav[place] heart without angina pectoris Paroxysmal atrial fibrillation (HCC) Atrial fibrillation Pure hypercholesterolemia Osteoporosis without current pathological fracture, unspecified osteoporosis type Mass of left side of neck- Primary Neuropathy Mononeuritis of unspecified site Anxiety Anxiety state, unspecified Chronic obstructive pulmonary disease, unspecified COPD type (HCC) Essential hypertension Unspecified essential hypertension Medicare annual wellness visit, subsequent- Primary Paroxysmal atrial fibrillation (HCC) Atrial fibrillation Chronic obstructive pulmonary disease, unspecified COPD type (HCC) Myoclonic disorder Coronary artery disease involving [place] coronary artery of nav[place] heart without angina pectoris Pure hypercholesterolemia Depressive disorder Depressive disorder, not elsewhere classified Anxiety Anxiety state, unspecified Cigarette smoker Tobacco use disorder Screening for diabetes mellitus Influenza vaccine refused Chronic obstructive pulmonary disease, unspecified COPD type (HCC)- Primary Paroxysmal atrial fibrillation (HCC) Atrial fibrillation Coronary artery disease involving [place] coronary artery of [place] heart without angina pectoris Neuropathy Mononeuritis of unspecified site Essential hypertension Unspecified essential hypertension Fibromyalgia Unspecified myalgia and myositis Cigarette smoker Tobacco use disorder Anxiety Anxiety state, unspecified Pure hypercholesterolemia Ganglion cyst of wrist, left Depressive disorder Depressive disorder, not elsewhere classified Anxiety Anxiety state, unspecified documented [facility]* Diagnosis Chronic obstructive pulmonary disease, unspecified COPD type (HCC)- Primary Essential hypertension Unspecified essential hypertension Paroxysmal atrial fibrillation (HCC) Atrial fibrillation Pure hypercholesterolemia Chronic cough Cough Osteoporosis, unspecified osteoporosis type, unspecified pathological fracture presence- Primary Back strain, subsequent encounter Medicare annual wellness visit, subsequent- Primary Anxiety Anxiety state, unspecified Peripheral vascular disease, unspecified (HCC) Peripheral vascular disease, unspecified Chronic obstructive pulmonary disease, unspecified COPD type (HCC) Essential hypertension Unspecified essential hypertension Coronary artery disease involving [place] coronary artery of [place] heart without angina pectoris Paroxysmal atrial fibrillation (HCC) Atrial fibrillation Pure hypercholesterolemia Osteoporosis without current pathological fracture, unspecified osteoporosis type Mass of left side of neck- Primary Neuropathy Mononeuritis of unspecified site Anxiety Anxiety state, unspecified Chronic obstructive pulmonary disease, unspecified COPD type (HCC) Essential hypertension Unspecified essential hypertension Medicare annual wellness visit, subsequent- Primary Paroxysmal atrial fibrillation (HCC) Atrial fibrillation Chronic obstructive pulmonary disease, unspecified COPD type (HCC) Myoclonic disorder Coronary artery disease involving [place] coronary artery of [place] heart without angina pectoris Pure hypercholesterolemia Depressive disorder Depressive disorder, not elsewhere classified Anxiety Anxiety state, unspecified Cigarette smoker Tobacco use disorder Screening for diabetes mellitus Influenza vaccine refused Chronic obstructive pulmonary disease, unspecified COPD type (HCC)- Primary Paroxysmal atrial fibrillation (HCC) Atrial fibrillation Coronary artery disease involving [place] coronary artery of [place] heart without angina pectoris Neuropathy Mononeuritis of unspecified site Essential hypertension Unspecified essential hypertension Fibromyalgia Unspecified myalgia and myositis Cigarette smoker Tobacco use disorder Anxiety Anxiety state, unspecified Pure hypercholesterolemia Ganglion cyst of wrist, left Depressive disorder Depressive disorder, not elsewhere classified Neuropathy Mononeuritis of unspecified site documented [facility]* Diagnosis Chronic obstructive pulmonary disease, unspecified COPD type (HCC)- Primary Essential hypertension Unspecified essential hypertension Paroxysmal atrial fibrillation (HCC) Atrial fibrillation Pure hypercholesterolemia Chronic cough Cough Osteoporosis, unspecified osteoporosis type, unspecified pathological fracture presence- Primary Back strain, subsequent encounter Medicare annual wellness visit, subsequent- Primary Anxiety Anxiety state, unspecified Peripheral vascular disease, unspecified Chronic obstructive pulmonary disease, unspecified COPD type (HCC) Essential hypertension Unspecified essential hypertension Coronary artery disease involving [place] coronary artery of [place] heart without angina pectoris Paroxysmal atrial fibrillation (HCC) Atrial fibrillation Pure hypercholesterolemia Osteoporosis without current pathological fracture, unspecified osteoporosis type Mass of left side of neck- Primary Neuropathy Mononeuritis of unspecified site Anxiety Anxiety state, unspecified Chronic obstructive pulmonary disease, unspecified COPD type (HCC) Essential hypertension Unspecified essential hypertension Medicare annual wellness visit, subsequent- Primary Paroxysmal atrial fibrillation (HCC) Atrial fibrillation Chronic obstructive pulmonary disease, unspecified COPD type (HCC) Myoclonic disorder Coronary artery disease involving [place] coronary artery of [place] heart without angina pectoris Pure hypercholesterolemia Depressive disorder Depressive disorder, not elsewhere classified Anxiety Anxiety state, unspecified Cigarette smoker Tobacco use disorder Screening for diabetes mellitus Influenza vaccine refused Chronic obstructive pulmonary disease, unspecified COPD type (HCC)- Primary Paroxysmal atrial fibrillation (HCC) Atrial fibrillation Coronary artery disease involving [place] coronary artery of [place] heart without angina pectoris Neuropathy Mononeuritis of unspecified site Essential hypertension Unspecified essential hypertension Fibromyalgia Unspecified myalgia and myositis Cigarette smoker Tobacco use disorder Anxiety Anxiety state, unspecified Pure hypercholesterolemia Ganglion cyst of wrist, left Depressive disorder Depressive disorder, not elsewhere classified Neuropathy Mononeuritis of unspecified site documented [facility]* Diagnosis Chronic obstructive pulmonary disease, unspecified COPD type (HCC)- Primary Essential hypertension Unspecified essential hypertension Paroxysmal atrial fibrillation (HCC) Atrial fibrillation Pure hypercholesterolemia Chronic cough Cough Osteoporosis, unspecified osteoporosis type, unspecified pathological fracture presence- Primary Back strain, subsequent encounter Medicare annual wellness visit, subsequent- Primary Anxiety Anxiety state, unspecified Peripheral vascular disease, unspecified Chronic obstructive pulmonary disease, unspecified COPD type (HCC) Essential hypertension Unspecified essential hypertension Coronary artery disease involving [place] coronary artery of [place] heart without angina pectoris Paroxysmal atrial fibrillation (HCC) Atrial fibrillation Pure hypercholesterolemia Osteoporosis without current pathological fracture, unspecified osteoporosis type Mass of left side of neck- Primary Neuropathy Mononeuritis of unspecified site Anxiety Anxiety state, unspecified Chronic obstructive pulmonary disease, unspecified COPD type (HCC) Essential hypertension Unspecified essential hypertension Medicare annual wellness visit, subsequent- Primary Paroxysmal atrial fibrillation (HCC) Atrial fibrillation Chronic obstructive pulmonary disease, unspecified COPD type (HCC) Myoclonic disorder Coronary artery disease involving [place] coronary artery of [place] heart without angina pectoris Pure hypercholesterolemia Depressive disorder Depressive disorder, not elsewhere classified Anxiety Anxiety state, unspecified Cigarette smoker Tobacco use disorder Screening for diabetes mellitus Influenza vaccine refused Chronic obstructive pulmonary disease, unspecified COPD type (HCC)- Primary Paroxysmal atrial fibrillation (HCC) Atrial fibrillation Coronary artery disease involving [place] coronary artery of [place] heart without angina pectoris Neuropathy Mononeuritis of unspecified site Essential hypertension Unspecified essential hypertension Fibromyalgia Unspecified myalgia and myositis Cigarette smoker Tobacco use disorder Anxiety Anxiety state, unspecified Pure hypercholesterolemia Ganglion cyst of wrist, left Depressive disorder Depressive disorder, not elsewhere classified Paronychia of finger of right hand- Primary documented [facility]* Diagnosis Chronic obstructive pulmonary disease, unspecified COPD type (HCC)- Primary Essential hypertension Unspecified essential hypertension Paroxysmal atrial fibrillation (HCC) Atrial fibrillation Pure hypercholesterolemia Chronic cough Cough Osteoporosis, unspecified osteoporosis type, unspecified pathological fracture presence- Primary Back strain, subsequent encounter Medicare annual wellness visit, subsequent- Primary Anxiety Anxiety state, unspecified Peripheral vascular disease, unspecified Chronic obstructive pulmonary disease, unspecified COPD type (HCC) Essential hypertension Unspecified essential hypertension Coronary artery disease involving [place] coronary artery of [place] heart without angina pectoris Paroxysmal atrial fibrillation (HCC) Atrial fibrillation Pure hypercholesterolemia Osteoporosis without current pathological fracture, unspecified osteoporosis type Mass of left side of neck- Primary Neuropathy Mononeuritis of unspecified site Anxiety Anxiety state, unspecified Chronic obstructive pulmonary disease, unspecified COPD type (HCC) Essential hypertension Unspecified essential hypertension Medicare annual wellness visit, subsequent- Primary Paroxysmal atrial fibrillation (HCC) Atrial fibrillation Chronic obstructive pulmonary disease, unspecified COPD type (HCC) Myoclonic disorder Coronary artery disease involving [place] coronary artery of [place] heart without angina pectoris Pure hypercholesterolemia Depressive disorder Depressive disorder, not elsewhere classified Anxiety Anxiety state, unspecified Cigarette smoker Tobacco use disorder Screening for diabetes mellitus Influenza vaccine refused Chronic obstructive pulmonary disease, unspecified COPD type (HCC)- Primary Paroxysmal atrial fibrillation (HCC) Atrial fibrillation Coronary artery disease involving [place] coronary artery of [place] heart without angina pectoris Neuropathy Mononeuritis of unspecified site Essential hypertension Unspecified essential hypertension Fibromyalgia Unspecified myalgia and myositis Cigarette smoker Tobacco use disorder Anxiety Anxiety state, unspecified Pure hypercholesterolemia Ganglion cyst of wrist, left Depressive disorder Depressive disorder, not elsewhere classified Anxiety Anxiety state, unspecified [facility] Attachments The following attachments cannot be sent through Care Everywhere. * Torticollis: Adult (Malaysian) * Cervical: Exercises (Malaysian) [facility] Additional Instructions Continue your metoprolol. Make sure to restart your Eliquis. Contact [facility] regarding pacemaker placement.[facility] Work Phone: Reason for referral (narrative)* Outpatient Procedure (Routine) - Pending Review Specialty Diagnoses / Procedures Referred By Contac t Referred To [facility] Diagnoses Persistent atrial fibrillation (HCC) Dyspnea, unspecified type Procedures ECHO ECHO TTHRC R-T 2D W/WOM-MODE COMPL SPEC&COLR D Caryn Wood MD [address] [place] [address] [facility] [place] [address] [place] [address] Referral ID Status Reason Start Date Expiration Date Visits Requested Visits Authorized [id number] Pending Review Auto-Generat ed Referral 05/22/2022 02/19/2023 1 1 [facility] for visit Narrative* Imaging (Routine) - Closed Specialty Diagnoses / Procedures Referred By Edgar garcia Referred To Contact Radiology Diagnoses Cigarette smoker Procedures CT lung screening low dose Adarsh Duggan MD [address], [place] [address] Phone: tel: fax: Referral ID Status Reason Start Date Expiration Date Visits Re quested Visits Authorized [id number] Closed 07/26/2024 07/26/2025 1 1 [facility] Summary Purpose Family History Relationship Condition Age at Onset Recorded Date/T john mother Hypertension Unknown Cerebrovascular accident (CVA) Unknown Coronary artery disease Unknown father Malignant neoplasm of colon Unknown Leukemia Unknown Malignant neoplasm of throat Unknown Advance Directives Documents on File Type Date Recorded Patient Dosimetrist Expl anation Advance Directives and Living Will Power of Sales And Business Development Manager Latest Code Status on File Code Status Date Activated Date Inactivated Comments Full Code 05/08/2018 5:44 PM 05/10/2018 6:00 PM Documents on File Type Date Recorded Patient Dosimetrist Expl anation Advance Directives and Living Will Power of Sales And Business Development Manager Latest Code Status on File Code Status Date Activated Date Inactivated Comments Full Code 05/08/2018 5:44 PM 05/10/2018 6:00 PM Documents on File Type Date Recorded Patient Dosimetrist Expl anation ACP-Advance Directive ACP-Power of Sales And Business Development Manager Advance Directive Response Recorded Date/ Time Advance Directives Yes October 03, 2014 12:43pm Living Will No December 18, 2021 11:45am Power of Sales And Business Development Manager No December 18 11:45am Advance Directive Response Recorded Date/ Time Advance Directives Yes October 03, 2014 12:43pm Living Will No December 18, 2021 5:10pm Power of Sales And Business Development Manager No December 18 5:10pm Documents on File Type Date Recorded Patient Dosimetrist Expl anation Advance Directive(s) 02/03/2022 7:22 AM Documents on File Type Date Recorded Patient Dosimetrist Expl anation Advance Directive(s) 02/03/2022 7:22 AM Advance Directive Response Recorded Date/ Time Name of Medical Power of Sales And Business Development Manager daughter February 06, 2022 9:28pm Name of Medical Power of Sales And Business Development Manager LUIS FRANCO May 25, 2022 11:04am Advance Directives Yes October 03, 2014 12:43pm Living Will Yes May 25, 2022 11:04am Power of Sales And Business Development Manager Yes May 11:04am Advance Directive Response Recorded Date/ Time Name of Medical Power of Sales And Business Development Manager daughter February 06, 2022 9:28pm Name of Medical Power of Sales And Business Development Manager LUIS FRANCO May 25, 2022 11:04am Name of Medical Power of Sales And Business Development Manager Marbin May 29, 2022 5:00pm Advance Directives Yes October 03, 2014 12:43pm Living Will Yes May 29, 2022 5:00pm Power of Sales And Business Development Manager Yes May 5:00pm Assessments Diagnosis Chronic fatigue Other malaise and fatigue Vitamin D deficiency Unspecified vitamin D deficiency Bilateral lower extremity edema Edema Diagnosis Pure hypercholesterolemia Diagnosis Paroxysmal atrial fibrillation (HCC) Atrial fibrillation Diagnosis Vitamin D deficiency Unspecified vitamin D deficiency Bilateral lower extremity edema Edema B12 deficiency Other B-complex deficiencies Diagnosis Back muscle spasm- Primary Other symptoms referable to back Reason for Referral Status Reason Specialty Diagnoses / Procedures Referre d By Contact Referred To Contact Open Cardiology Diagnoses Paroxysmal atrial fibrillation (HCC) Procedures Event Monitor Margot Brown, HIGH REACH OPERATOR - MANAGER BUSINESS BANKING 1 [facility], [place], [facility]. [address] [place] [address] Specialty Diagnoses / Procedures Referred By Edgar garcia Referred To Contact Sports Medicine Diagnoses Neck pain Torticollis [facility] [address] [place] [address] [address] [place] [address] Referral ID Status Reason Start Date Expiration Date V isits Requested Visits Authorized [id number] Open Specialty Services Required 05/28/2022 05/28/2023 1 1 Scheduling Instructions [facility] [place] [address] [place] [address] Comments The patient can be scheduled with any member of the group, including the provider with the first available appointments. Specialty Diagnoses / Procedures Referred By Edgar garcia Referred To Contact Diagnoses Closed compression fracture of L1 lumbar vertebra, initial encounter ([facility]) Temo Hicks MD [address] [place] [address] Referral ID Status Reason Start Date Expiration Date V isits Requested Visits Authorized [id number] Pending Review 1 1 Specialty Diagnoses / Procedures Referred By Contac t Referred To Contact Radiology Diagnoses Nicotine dependence, cigarettes, uncomplicated Procedures CT lung screening low dose Nelida Santana, DO [address] [place] [address] Referral ID Status Reason Start Date Expiration Date V isits Requested Visits Authorized [id number] Authorized 07/04/2022 12/31/2022 1 1 Discharge Instructions * Instructions* Emiliano Chin MD - 12/20/2020 Take acetaminophen thousand milligrams along with ibuprofen 600 mg for the next 2-3 days for severepain as needed. You may take these together every 6 hours but again only as needed. Take the Flexeril at bedtime; we cannot take that during the day when you are operating any machinery or driving * Attachments The following attachments cannot be sent through Care Everywhere. * Back Spasm (Malaysian) * Back: Stretches: Exercises (Malaysian) documented in this encounter Chief Complaint and Reason for Visit Chief Complaint AFIB WITH RVR a fib Reason for Visit Atrial fibrillation with RVR Creatinine elevation Lightheadedness Nausea Chief Complaint AFIB WITH RVR a fib AFIB WITH RVR Reason for Visit Atrial fibrillation with RVR Creatinine elevation Essential hypertension Lightheadedness Nausea History of coronary artery stent placement Chief Complaint AFIB WITH RVR AFIB WITH RVR AFIB WITH RVR DIZZY Reason for Visit Atrial fibrillation with RVR Elevated troponin 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 Dizziness Hypotension Chief Complaint AFIB WITH RVR AFIB WITH RVR AFIB WITH RVR DIZZY CHEST PAIN Reason for Visit Atrial fibrillation with RVR Elevated troponin 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 Dizziness Hypotension Additional Source Comments INFORMATION SOURCE (unrecogn ized section and content) DATE CREATED AUTHOR 06/16/2018 [facility] DATE CREATED AUTHOR AUTHOR'S ORGANIZ ATION 04/02/2020 [facility] DATE CREATED AUTHOR AUTHOR'S ORGANIZ ATION 02/20/2022 [facility] DATE CREATED AUTHOR AUTHOR'S ORGANIZ ATION 06/11/2022 [facility] DATE CREATED AUTHOR AUTHOR'S ORGANIZ ATION [facility]/20[facility] DATE CREATED AUTHOR AUTHOR'S ORGANIZ ATION 07/03/2025 [facility] Reason for Visit (unrecogniz ed section and content) Reason Comments Abdominal Pain Flank Pain Reason Comments CARD New Patient Consult REF FOR A-FIB Reason Comments Orders Preparations For Procedures PVAI Ablatio n Reason Comments Appointment Reason Comments Orders Reason Comments Neck Pain Reason Comments Neck Pain Reason Onset Date Comments Medication request 10/09/2022 Reason Comments Med Refill Reason Comments Hip Pain Reason Onset Date Comments Med Refill 03/02/2023 Reason Onset Date Comments Med Refill 03/30/2023 Reason Comments Cough Cough for 3 days, doll s not tested for COVID Reason Onset Date Comments Error (VOID this visit) 05/27/2023 Reason Onset Date Comments Results 07/09/2023 Reason Comments Medicare Annual Wellness Visit Subsequen t Blood Work Health Maintenance Colonoscopy-done [facility] Hep c screening- refuseShingles vaccine- refuseLung screening- not right now Covid 3 vaccine- doneFlu vaccine- refuse Reason Onset Date Comments Blood Pressure Check 07/27/2023 Reason Onset Date Comments Med Refill 12/14/2023 Reason Onset Date Comments Adenopathy 12/22/2023 Reason Comments Edema Cough 3 months Joint Swelling Reason Onset Date Comments Med Refill 03/11/2024 Reason Onset Date Comments Med Refill 05/05/2024 clonazePAM (Klon oPIN) 2 MG tablet Reason Onset Date Comments Med Refill 05/12/2024 Reason Comments Medicare Annual Wellness Visit Subsequen t Blood Work Health Maintenance Colonoscopy- refuseH ep c screening- refuseMammogram- refuseShingles vaccine- refuseLung cancer screen-agreeRsv vaccine- not doneFlu vaccine- [id number] covid vaccine- not done Reason Onset Date Comments Med Refill 11/05/2022 Reason Onset Date Comments COPD 09/05/2022 Hypertension 09/05/2022 Reason Onset Date Comments COPD 10/28/2022 Hypertension 10/28/2022 Reason Onset Date Comments Med Refill 09/26/2024 Reason Onset Date Comments Med Refill 10/20/2024 Error (VOID this visit) 10/20/2024 error Reason Onset Date Comments Med Refill 10/26/2024 Reason Comments Medication Check Health Maintenance CRCS- declines Mammo - declines Anxiety Depression COPD Coronary Artery Disease Atrial Fibrillation Reason Onset Date Comments Med Refill 04/06/2025 Reason Onset Date Comments Med Refill 05/12/2025 Reason Onset Date Comments Med Refill 06/05/2025 Reason Onset Date Comments Med Refill 06/12/2025 Reason Comments Hand Pain Right index Reason Onset Date Comments Med Refill 07/03/2025 Ordered Prescriptions (unrec ognized section and content) Prescription Sig Dispensed Refills Start Date End Da te cyclobenzaprine (FLEXERIL) 10 MG tablet Take 1 tablet by mouth 3 times daily as needed for Muscle spasms 21 tablet 0 12/20/2020 12/30/2020 Prescription Sig Dispensed Refills Start Date End Da te lidocaine (LIDODERM) 5 % Place 1 patch onto the skin daily for 10 days 12 hours on, 12 hours off. 10 patch 0 05/24/2022 06/03/2022 cyclobenzaprine (FLEXERIL) 10 MG tablet Take 1 tablet by mouth 3 times daily as needed for Muscle spasms 15 tablet 0 05/24/2022 06/03/2022 Prescription Sig Dispensed Refills Start Date End Da te predniSONE (DELTASONE) 50 MG tablet Take 1 tablet by mouth daily for 5 days 5 tablet 0 05/28/2022 06/02/2022 oxyCODONE-acetaminophen (PERCOCET) 5-325 MG per tabletIndications:Neck pain,Torticollis Take 1 tablet by mouth every 6 hours as needed for Pain for up to 3 days. Intended supply: 3 days. Take lowest dose possible to manage pain 12 tablet 0 05/28/2022 05/31/2022 ibuprofen (ADVIL;MOTRIN) 600 MG tablet Take 1 tablet by mouth 3 times daily as needed for Pain 90 tablet 0 05/28/2022 06/27/2022 Goals (unrecognized section and content) Goals may be documented in a n alternate sectionGoals may be documented in an alternate section Source Comments (unrecognize d section and content) In the event this informatio n is protected by the [facility] Confidentiality of Alcohol and Drug Abuse Patient Records regulations: The Federal rules restrict any use of the information to criminally investigate or prosecute any alcohol or drug abuse patient.[facility] Hospital[facility] the event this information is protected by the Federal Confidentiality of Alcohol and Drug Abuse Patient Records regulations: The Federal rules restrict any use of the information to criminally investigate or prosecute any alcohol or drug abuse patient.[facility] HospitalIn the event this information is protected by the Federal Confidentiality of Alcohol and Drug Abuse Patient Records regulations: The Federal rules restrict any use of the information to criminally investigate or prosecute any alcohol or drug abuse patient.[facility] HospitalIn the event this information is protected by the Federal Confidentiality of Alcohol and Drug Abuse Patient Records regulations: The Federal rules restrict any use of the information to criminally investigate or prosecute any alcohol or drug abuse patient.[facility] Teams (unrecognized sec tion and content) Mold Bunch Trimmer Relationship Specialty Start Date End Date Adarsh Duggan [address] [place] [facility] [place] [address] PCP - General Family Practice 01/21/[address] [place] [address] Nurse Practitioner Cardiology 08/28/21 Juan C Gaytan [address] [place] [address] Specialty Underground Mine Superintendent Cardiology 01/20/22 Mold Bunch Trimmer Relationship Specialty Start Date End Date Adarsh Duggan [address] [place] [address] PCP - General Family Practice 01/21/[address] [place] [address] Nurse Practitioner Cardiology 08/28/21 Juan C Gaytan [address] [facility] [facility] [address] [address] [facility] [address] [place] [address] Specialty Underground Mine Superintendent Cardiology 01/20/22 Mold Bunch Trimmer Relationship Specialty Start Date End Date Adarsh Duggan [address] [place] [address] PCP - General Family Practice 01/21/[address] [place] [address] Nurse Practitioner Cardiology 08/28/[address] Gaytan [address] [place] [address] Specialty Underground Mine Superintendent Cardiology 01/20/22 Caryn Wood MD [address] [facility] [address] [place] [phone] Specialty Underground Mine Superintendent Cardiology 01/28/22 Mold Bunch Trimmer Relationship Specialty Start Date End Date Adarsh Duggan [address] [facility], [place] [id number] PCP - General Family Practice 01/21/22 Jose Dave [address] [place] [address] Nurse Practitioner Cardiology 08/28/21 ZanderdomosmithaJuan C lance [address] [place] [address] Specialty Underground Mine Superintendent Cardiology 01/20/22 Caryn Wood MD [address] [facility] [address] [place] [phone] Specialty Underground Mine Superintendent Cardiology 01/28/22 Mold Bunch Trimmer Relationship Specialty Start Date End Date Adarsh Duggan MD [address] [place], [place] [address], [place] [address] PCP - General Family Medicine 05/09/21 Mold Bunch Trimmer Relationship Specialty Start Date End Date Adarsh Duggan MD [address] [place], [place] [address], [place] [address] PCP - General Family Medicine 05/09/21 Mold Bunch Trimmer Relationship Specialty Start Date End Date Adarsh Duggan MD [address] [place] [address] PCP - General 05/09/21 Patt Lerma, identification clerk 08/12/22 Mold Bunch Trimmer Relationship Specialty Start Date End Date Adarsh Duggan MD [address] [place], [place] [address], [place] [address] PCP - General 05/09/21 Green, Patt, identification clerk 08/12/22 Mold Bunch Trimmer Relationship Specialty Start Date End Date Adarsh Duggan MD [address] [place] [address] PCP - General 05/09/21 Patt Lerma identification clerk 08/12/22 Mold Bunch Trimmer Relationship Specialty Start Date End Date Adarsh Duggan MD [address] [place] [address] PCP - General 05/09/21 Patt Lerma identification clerk 08/12/22 Mold Bunch Trimmer Relationship Specialty Start Date End Date Adarsh Duggan MD [address] [facility] [place] [address] PCP - General 05/09/21 Patt Lerma identification clerk 08/12/22 Mold Bunch Trimmer Relationship Specialty Start Date End Date Adarsh Duggan MD [address] [place] [address] PCP - General 05/09/21 Patt Lerma identification clerk 08/12/22 Mold Bunch Trimmer Relationship Specialty Start Date End Date Adarsh Duggan MD [address] [facility] [place] [address] PCP - General 05/09/21 Patt Lerma identification clerk 08/12/22 Mold Bunch Trimmer Relationship Specialty Start Date End Date Adarsh Duggan MD [address] [facility] [place] [address] PCP - General 05/09/21 Patt Lerma, identification clerk 08/12/22 Mold Bunch Trimmer Relationship Specialty Start Date End Date Adarsh Duggan MD [address] [facility] [place] [address] PCP - General 05/09/21 Patt Lerma, identification clerk 08/12/22 Mold Bunch Trimmer Relationship Specialty Start Date End Date Adarsh Duggan MD [address] [facility] [place] [address] PCP - General 05/09/21 Patt Lerma, identification clerk 08/12/22 Mold Bunch Trimmer Relationship Specialty Start Date End Date Adarsh Duggan MD [address] [facility] [place] [address] PCP - General 05/09/21 Patt Lerma, identification clerk 08/12/22 Mold Bunch Trimmer Relationship Specialty Start Date End Date Adarsh Duggan MD [address] [facility] [place] [address] PCP - General 05/09/21 Patt Lerma, identification clerk 08/12/22 Mold Bunch Trimmer Relationship Specialty Start Date End Date Adarsh Duggan MD [address] [facility] [place] [address] PCP - General 05/09/21 Patt Lerma, identification clerk 08/12/22 Mold Bunch Trimmer Relationship Specialty Start Date End Date Adarsh Duggan MD [address] [facility] [place] [address] PCP - General 05/09/21 Patt Lerma, identification clerk 08/12/22 Mold Bunch Trimmer Relationship Specialty Start Date End Date Adarsh Duggan MD [address] [facility] [place] [address] PCP - General 05/09/21 Patt Lerma, identification clerk 08/12/22 Mold Bunch Trimmer Relationship Specialty Start Date End Date Adarsh Duggan MD [address] [place] [address] PCP - General 05/09/21 Patt Lerma, identification clerk 08/12/22 Mold Bunch Trimmer Relationship Specialty Start Date End Date Adarsh Duggan MD [place] [address] PCP - General 05/09/21 Patt Lerma, identification clerk 08/12/22 Mold Bunch Trimmer Relationship Specialty Start Date End Date Adarsh Duggan MD [address] [place] [address] PCP - General 05/09/21 Mold Bunch Trimmer Relationship Specialty Start Date End Date Adarsh Duggan MD [address] [place], [place] [address] [address] PCP - General 05/09/21 Mold Bunch Trimmer Relationship Specialty Start Date End Date Adarsh Duggan MD [address] [place] [address] PCP - General 05/09/21 Sumaya Muniz, identification clerk 07/08/22 08/12/22 Patt Lerma, identification clerk 08/12/22 Mold Bunch Trimmer Relationship Specialty Start Date End Date Adarsh Duggan MD [address] [place] [address] PCP - General 05/09/21 Patt Lerma, identification clerk 08/12/22 Mold Bunch Trimmer Relationship Specialty Start Date End Date Adarsh Duggan MD [address] [place] [address] PCP - General 05/09/21 Patt Lerma, identification clerk 08/12/22 Mold Bunch Trimmer Relationship Specialty Start Date End Date Adarsh Duggan MD [address] [place] [address] PCP - General 05/09/21 Sumaya Muniz, identification clerk 07/08/22 08/12/22 Patt Lerma, identification clerk 08/12/22 Mold Bunch Trimmer Relationship Specialty Start Date End Date Adarsh Duggan MD [address] [place] [address] PCP - General 05/09/21 Patt Lerma, identification clerk 08/12/22 Mold Bunch Trimmer Relationship Specialty Start Date End Date Adarsh Duggan MD [address] [place] [address] PCP - General 05/09/21 Mold Bunch Trimmer Relationship Specialty Start Date End Date Adarsh Duggan MD [address] [place] [address] PCP - General 05/09/21 Mold Bunch Trimmer Relationship Specialty Start Date End Date Adarsh Duggan MD [address] [place], [place] [address] [address] PCP - General 05/09/21 Mold Bunch Trimmer Relationship Specialty Start Date End Date Adarsh Duggan MD [address] [place] [address] PCP - General 05/09/21 Mold Bunch Trimmer Relationship Specialty Start Date End Date Adarsh Duggan MD [address] [place] [address] [place] [address] PCP - General 05/09/21 Mold Bunch Trimmer Relationship Specialty Start Date End Date Adarsh Duggan MD [address] [place], [place] [address] [address] PCP - General 05/09/21 Mold Bunch Trimmer Relationship Specialty Start Date End Date Adarsh Duggan MD [address] [place] [address] PCP - General 05/09/21 Scheduled Active and Recently Administ ered Medications (unrecognized section and content) Medication Order 05/26/2022 05/27/2022 05/28/2022 ketorolac (TORADOL) injection 30 mg (COMPLETED) Ketorolac is contraindicated in patients with advanced renal impairment and in patients at risk of renal failure due to volume depletion. For 65 years of age and older OR weight less than 50 kg, use 15 mg IV every 6 hours; MAX dose: 60 mg/day. Dose greater than 30 mg must be administered via intramuscular route. Do not administer for more than 5 days., 30 mg, IntraMUSCular, ONCE, 1 dose, On Thu05/28/22 at 1712, Do not administer for more than 5 days. 1746 (Given - Provid er: Gisel Putnam RN) oxyCODONE-acetaminophen (PERCOCET) 5-325 MG per tablet 1 tablet (COMPLETED) Mg/kg dosing is based on the oxycodone component., 1 tablet, Oral, ONCE, 1 dose, On Thu05/28/22 at 1712, Maximum dose of acetaminophen is 4000 mg from all sources in 24 hours. 1745 (Given - Provid er: Gisel Putnam, MARIA DEL CARMEN) Scheduled Medication Order 01/22/2023 01/23/2023 01/24/2023 HYDROmorphone (Dilaudid) injection 1 mg (COMPLETED) 1 mg, IntraMUSCular, Once, On 01/24/23 at 1540, For 1 dose, If oral and IV narcotics ordered, use oral first and only use IV if oral is ineffective or cannot take oral. Do Not give oral and IV within 1 hour of each other unless specifically ordered. 1541 (Given - Provid er: Lucy Frederick RN) ondansetron ODT (Zofran-ODT) disintegrating tablet 4 mg (COMPLETED) 4 mg, Oral, Once, On 01/24/23 at 1635, For 1 dose 1635 (Given - Provid er: Lucy Frederick RN) Scheduled Medication Order 06/21/2025 06/22/2025 06/23/2025 HYDROcodone-acetaminophen (Baxter) 5-325 MG per tablet 1 tablet (COMPLETED) 1 tablet, Oral, Once, On Thu06/23/25 at 1850, For 1 dose, Maximum dose of acetaminophen is 4000 mg from all sources in 24 hours. 185 (Given - Provid er: Desire Elena RN) lidocaine (Xylocaine) 1 % injection 5 mL (COMPLETED) 5 mL, Infiltration, Once, On Thu06/23/25 at 1815, For 1 dose 185 (Given by Other - Provider: Desire Elena RN - Reason: Other - Comment: given by physician prior to I&D) sulfamethoxazole-trimethoprim (Bactrim DS) 800-160 MG per tablet 1 tablet (COMPLETED) 1 tablet, Oral, Once, On Thu06/23/25 at 1850, For 1 dose, Suspected Indication (Select all that apply): Skin and Soft Tissue Infection 1853 (Given - Provid er: Desire Elena RN) FOR RECORDS PERTAINING TO PATIENTS WHO ARE OR HAVE BEEN ENROLLED IN A CHEMICAL DEPENDENCY/SUBSTANCEABUSE PROGRAM, SOME INFORMATION MAY BE OMITTED. This clinical summary was aggregated from multiple sources. Caution should be exercised in using it in the provision of clinical care. This summary normalizes information from multiple sources, and as a consequence, information in this document may materially change the coding, format and clinical context of patient data. In addition, data may be omitted in some cases. CLINICAL DECISIONS SHOULD BE BASED ON THE PRIMARY CLINICAL RECORDS. [facility]. provides no warranty or guarantee of the accuracy or completeness of information in this document.
[2025-07-10 06:11] LABS: AST(SGOT) 30 U/L (<=31); Alanine Aminotransfer ALT/SGPT 36 U/L (<=34); Albumin, Serum 4.1 g/dL (3.4-4.8); Alkaline Phosphatase 96 U/L (35-104); Anion Gap 11 (5-15); BUN 16 mg/dL (4-19); BUN/Creat Ratio 16.9 RATIO (10-20); Calcium,Total 9.2 mg/dL (7.6-11.0); Carbon Dioxide 25.8 mmol/L (21.0-32.0); Chloride 104 mmol/L (98-108); Estimated Creatinine Clearance 47.46 ml/min (50-250); Globulin 3.1 g/dL (2.2-4.2); Glucose 137 mg/dL (70-99); Lipase 14 U/L (13-75); Potassium 4.0 mmol/L (3.3-5.1)
--- NOTE | 2025-07-10 06:11 | ED.VIS.CHEST ---
HPI History of Present Illness Chief Complaint: Palpitations Informant: patient and family Narrative Narrative: Patient is a 74-year-old female with history of atrial fibrillation (status post ablation), hypertension, secondary pulmonary hypertension, hyperlipidemia, tobacco use and coronary artery disease status post stent placement in 2018 presenting with burning chest discomfort. States its across the front of her chest. Has associated nausea and dry heaves. States is been on for a couple days. She is not compliant with her medications including her metoprolol because she "does not like to take pills". She does smoke 2 packs cigarettes per day. Denies any change in appetite or association with eating drinking with her symptoms. Has not tried anything [id number] for her symptoms prior to coming in. States it feels like her A-fib is acting up. Does not report any acute shortness of breath or difficulty breathing. [facility] Medical History History of ST elevation myocardial infarction (STEMI) (05/08/18) Paroxysmal atrial fibrillation Depression Essential hypertension Left atrial enlargement Secondary pulmonary hypertension Thyroid nodule GERD (gastroesophageal reflux disease) Atherosclerotic heart disease of [place] coronary artery without angina pectoris Anemia Sigmoid diverticulitis Hyperlipidemia COPD (chronic obstructive pulmonary disease) Atrial fibrillation with RVR (02/06/22) Irritable bowel Tobacco abuse Myoclonic disorder Home Medications Medication Instructions Recorded Last Taken Type tramadol 50 mg tablet 1 tab PO BID PRN Pain 04/19/19 12/15/21 History lisinopril 20 mg tablet 20 mg PO DAILY blood pressure 01/08/21 12/18/21 History budesonide-formoterol HFA 160 2 puff inhalation BID copd 02/05/21 12/14/21 History mcg-4.5 mcg/actuation aerosol inhaler albuterol sulfate 90 mcg/actuation 2 puff inhalation Q4H PRN PRN Sob 08/06/21 12/16/21 Rx aerosol inhaler &/Or Wheezing #8.5 grams dronedarone 400 mg tablet (Multaq) 400 mg PO BID directions 08/14/21 Unknown Rx corrected: should be twice daily #60 tabs clonazepam 2 mg tablet 2 mg PO BID PRN Anxiety 12/18/21 12/16/21 History apixaban 5 mg tablet (Eliquis) 5 mg PO BID #180 tabs 01/03/22 Unknown Rx aspirin 81 mg capsule 81 mg PO DAILY #90 caps 01/03/22 Unknown Rx metoprolol tartrate 100 mg tablet 100 mg PO BID 30 days #180 tabs 01/03/22 Unknown Rx amoxicillin 500 mg-potassium 1 tab PO BID 7 days #14 tabs 02/07/22 Unknown Rx clavulanate 125 mg tablet (Augmentin) hydrochlorothiazide 25 mg tablet 25 mg PO DAILY blood pressure #30 02/07/22 Unknown Rx tabs Allergy/AdvReac Type Severity Reaction Status Date / Time levofloxacin (From Levaquin) Allergy Rash Verified 05/29/22 16:59 phenytoin (From Dilantin) Allergy Swelling Verified 05/29/22 16:59 sertraline AdvReac Intermediate anxiety Verified 05/29/22 16:59 Family History Mother Hypertension CVA (cerebral vascular accident) CAD (coronary artery disease) Father Colon cancer Leukemia Throat cancer Surgical History History of cardioversion (06/2021) History of radiofrequency ablation procedure for cardiac arrhythmia (02/03/22) History of coronary artery stent placement (05/08/18) History of thyroidectomy History of breast lump removal History of left heart catheterization (10/04/14) History of lobectomy of thyroid History of total abdominal hysterectomy Social History housing: house number of children: 1 Smoking Status: Heavy Smoker (>10/day) Tobacco: How many years used: 50 alcohol intake: never substance use type: does not use ROS ROS ED Constitutional Constitutional ED: Denies chills or fever(s) Cardiovascular Cardiovascular: Reports as per HPI and chest pain Respiratory/Chest Respiratory/Chest: Reports cough; Denies dyspnea or sputum Gastrointestinal Gastrointestinal: Reports nausea; Denies abdominal pain Musculoskeletal Musculoskeletal: Denies arthralgias or myalgias Integumentary Denies rash Neurologic Neurologic: Denies weakness Hematologic/Lymphatic Hematologic/Lymphatic: Denies easy bleeding or easy bruising EXAM Physical Exam Const Vital Signs: 07/10/25 04:55 07/10/25 05:24 07/10/25 05:51 Temperature 98.8 F Temperature Source Oral Pulse Rate 83 78 Respiratory Rate 31 H Respiratory Effort Normal Blood Pressure 189/99 H 184/100 H Blood Pressure Mean 129 Pulse Ox 95 Oxygen Delivery Method Room Air 07/10/25 07:17 Temperature Temperature Source Pulse Rate 75 Respiratory Rate 19 H Respiratory Effort Blood Pressure 157/89 H Blood Pressure Mean 111 Pulse Ox 98 Oxygen Delivery Method Room Air Positive well nourished and well developed General Appearance ED: well developed and NAD HEENT Reports moist mucous membranes normocephalic and atraumatic Eyes PERRL Neck supple Neck Narrative: mild JVD present Chest Wall inspection of chest normal and palpation of chest normal Resp normal respiratory effort Resp Narrative: Diminished breath sounds at the bases. Auscultation: Negative for rales, rhonchi or wheezes Cardio regular rate, regular rhythm and no murmurs GI normal to inspection, nondistended, normoactive bowel sounds, soft to palpation and non-tender Extremity normal to inspection General Extremety ED: Negative for edema General Extremity: Negative for edema Neuro oriented x3 Sensorium / Orientation: awake and alert Motor Exam: Negative for general weakness Psych mental status grossly normal Skin no rashes or lesions noted and no wounds Heart Score History: Moderately Suspicious ECG: Nonspecific Repolarization Age: >/= 65 years Risk Factors: >/= 3 Risk Factors or History of CAD Troponin: >1 - <3 Normal Limit Score: 7 MDM MDM MDM Narrative Medical decision making narrative: Patient is evaluated for 3 days of burning chest discomfort with some associated nausea and dry heaves. Worsen at night did finally consent to coming to the ER with her grandson. Has a significant history of coronary artery disease with stent, history of medication noncompliance and ongoing to heavy tobacco use. Differential includes ACS, gastritis, pericarditis, myocarditis and pleural effusion. She does not report any significant worsening shortness of breath but notes it is worse at night when she lays down. Denies any fever or chills. Denies any change in her sputum production source patient for COPD exacerbation/pneumonia. Vital signs significant for hypertension upon arrival (189/99). She is mildly tachypneic. CBC is normal. CMP largely normal with only a minimally elevated ALT which is nonspecific. Lipase is normal at 14. Chest x-ray shows basilar scarring atelectasis but no focal infiltrate. She does have enlargement of her cardiac silhouette. This is reviewed by myself as well as radiology. Her initial high-sensitivity troponin is mildly elevated at 28. On repeat it is 34. Given that her heart score 7 with delta high-sensitivity troponin at 2 hours of 6 do think she would benefit from inpatient cardiac workup. Patient is agreeable. Patient be given a DuoNeb in the emergency room as she does have episode of hypoxia down to 87% requiring 2 L of oxygen at rest. States she does not normally wear oxygen. Will discuss case with hospitalist. Case discussed with Dr. Rider. Will be brought in for observation. Plan for nuclear stress test today. Lab Data Attestation: I reviewed the patient's lab results. Labs: Laboratory Results - last 24 hr 07/10/25 07/10/25 05:04 07:05 WBC 9.6 RBC 4.25 Hgb 12.9 Hct 41.3 MCV 97.2 MCH 30.4 MCHC 31.2 L RDW Std Deviation 49.4 H RDW Coeff of Claudia 13.8 Plt Count 326 MPV 10.1 Immature Gran % (Auto) 0.300 Neut % (Auto) 80.6 H Lymph % (Auto) 9.9 L [place] % (Auto) 7.1 Eos % (Auto) 1.5 Baso % (Auto) 0.6 Absolute Neuts (auto) 7.8 H Absolute Lymphs (auto) 0.95 Nucleated RBC % 0 Sodium 140 Potassium 4.0 Chloride 104 Carbon Dioxide 25.8 Anion Gap 11 BUN 16 Creatinine 0.94 Estim Creat Clear Calc 47.46 L Est GFR (MDRD) Non-Af 64 BUN/Creatinine Ratio 16.9 Glucose 137 H Calcium 9.2 Total Bilirubin 0.58 AST 30 ALT 36 H Alkaline Phosphatase 96 Troponin T High Sens 28 H Troponin T Hi Sens 2 Hr 34 H Total Protein 7.2 Albumin 4.1 Globulin 3.1 Albumin/Globulin Ratio 1.4 Lipase 14 Radiography Chest X-Ray - ED: 2 View, Read by ED Physician, Read by Radiologist and Chronic Changes Diagnostic Testing: Clinical Impression(s) from Imaging Studies Chest X-Ray 07/10/25 05:40 IMPRESSION: Emphysema. Bilateral blunting of the costophrenic angles, probably adhesions. Bilateral basilar atelectatic pulmonary changes/infiltrates. Enlarged cardiac silhouette. Reading Location: [place] [id number] Rhythm Strip Rhythm Strip: Sinus Rhythm Rate: 80 Ectopy: None EKG Initial EKG: Attestation: I personally reviewed and interpreted this EKG as follows: Interpretation: Sinus Rhythm Comments: Normal sinus rhythm at a rate of 80 bpm Normal axis Normal intervals Subtle ST depression in lead II with some nonspecific changes in the lateral leads. Prior EKG tracings: available for review Prior: Unchanged Management Discussion w/another healthcare provider: Hospitalist Discharge Plan Triage Chief Complaint: Palpitations ED Provider: Helena Louie Dx/Rx/DC Orders Clinical Impression: Chest pain, History of coronary artery stent placement, Essential hypertension, Elevated troponin, Hypoxia, Tobacco use disorder, continuous Prescriptions: No Action budesonide-formoterol 160-4.5 mcg/actuation HFA aerosol inhaler 2 puff inhalation BID albuterol sulfate 90 mcg/actuation HFA aerosol inhaler 2 puff inhalation Q4H PRN PRN (Reason: Sob &/Or Wheezing) Qty: 8.5 0RF Eliquis 5 mg tablet 5 mg PO BID Qty: 180 3RF metoprolol tartrate 100 mg tablet 100 mg PO BID 30 Days Qty: 180 3RF aspirin 81 mg capsule 81 mg PO DAILY Qty: 90 1RF tramadol 50 MG tablet 1 tab PO BID PRN (Reason: Pain) lisinopril 20 mg tablet 20 mg PO DAILY Patient Comments: take 1 tablet by mouth once daily clonazepam 2 mg tablet 2 mg PO BID PRN (Reason: Anxiety) Patient Comments: TAKE 1 TABLET BY MOUTH TWICE DAILY IF NEEDED amoxicillin-pot clavulanate [Augmentin] 500-125 mg tablet 1 tab PO BID 7 Days Qty: 14 0RF hydrochlorothiazide 25 mg tablet 25 mg PO DAILY Qty: 30 0RF Multaq 400 mg tablet 400 mg PO BID Qty: 60 11RF Rx Instructions: must administer with a meal/food Primary Care Provider: Adarsh Urbina Referrals: Adarsh Urbina MD [Primary Care Provider, Family Practice] Print Language: Chinese
[2025-07-10 06:35] LABS: Troponin T High Sensitivity 28 ng/L (<=14)
[2025-07-10 07:46] LABS: Troponin T High Sens 2 HR 34 ng/L (<=14)
[2025-07-10] MEDS: Nicotine (PBKC) 14 MG Patch TD (08:16)
[2025-07-10 08:55] LABS: Pro- Brain NATRIURETIC PEPTIDE 12680 pg/mL (<=900)
[2025-07-10 09:46] LABS: Troponin T High Sens 4 HR 39 ng/L (<=14)
--- NOTE | 2025-07-10 11:41 | STRESSREP ---
Stress Test Report Date: 07/10/2025 Procedure: Pharmacologic stress nuclear imaging study Indications: Chest pain Consent: Per the patient Procedure: The patient underwent pharmacologic (Regadenoson 0.4mg ) evaluation with a peak heart rate of 83 beats per minute (56%predicted maximal heart rate) and a peak blood pressure of 138/84 mmHg. The baseline ECG demonstrated sinus rhythm with nonspecific ST-T changes. The peak pharmacologic ECG was nondiagnostic secondary to baseline abnormalities. No significant cardiac dysrhythmias noted. There was no complaint of chest discomfort during pharmacologic infusion or recovery. The patient was injected with 11.1 millicuries of technetium 99m Cardiolite and subsequently rest SPECT Cardiolite nuclear imaging was obtained in the horizontal long, vertical long, and short axis views. The patient underwent pharmacologic (Regadenoson) evaluation. The patient was injected with 33.9 millicuries of technetium 99m Cardiolite and subsequently stress SPECT Cardiolite nuclear imaging was obtained in the horizontal long, vertical long, and short axis views. A gated Cardiolite study at peak stress was obtained. The examination was stopped secondary to completion of protocol. Rest and stress SPECT Cardiolite nuclear imaging status post realignment, normalization, and attenuation correction demonstrate mildly reduced perfusion of the inferior wall post pharmacological stress, suggestive of mild inferior ischemia. There is end systolic thickening and brightening. The gated Cardiolite study demonstrates myocardial thickening and inward wall motion. The reported LVEF is 47%. Impression: 1. Pharmacologic (Regadenoson) evaluation 2. Peak pharmacologic ECG was nondiagnostic. 3. No significant cardiac dysrhythmias noted. 5. Mild inferior wall ischemia. 6. The gated Cardiolite study reports an LVEF of 47%. This note was generated with [employer] software. It may contain incorrect words, spelling, and punctuation that were not noted in checking the note before signing.
--- NOTE | 2025-07-10 13:30 | ECHOD_ITS ---
Reason For Study Reason For Study: Dyspnea/SOB Procedure This was a 2D Doppler, Color Flow transthoracic echocardiogram. Exam performed portable in patient room. Left Ventricle Mild concentric left ventricular hypertrophy. Normal LV size. The left ventricular ejection fraction is 50 %. Stage 3 diastolic dysfunction. Right Ventricle Normal right ventricle. Atria The left atrium is moderately enlarged. Normal right atrium. Patent foramen ovale. Mitral Valve Mild focal mitral valve calcification. Mild (1+) mitral valve insufficiency. Tricuspid Valve Moderate (2+) tricuspid valve insufficiency. Right ventricular systolic pressure estimated to be 63 mmHg. Aortic Valve Aortic valve sclerosis without stenosis. Mild aortic valve regurgitation. Pulmonic Valve The pulmonic valve is not well visualized. Trivial pulmonic valve insufficiency. Great Vessels Normal sized aortic root. Pericardium/Pleural No pericardial effusion. MMode/2D Measurements & Calculations LVIDd: 3.8 cm IVSd: 1.2 cm Ao root diam: 3.5 cm LVIDs: 2.6 cm LVPWd: 1.3 cm RVDd: 5.0 cm FS: 31.1 % LAV(MOD-bp): 171.9 ml LVAd ap4: 29.5 cm2 LVAd ap2: 32.2 cm2 LAV(MOD-bp) Indexed: 106.8 ml/m2 LVLd ap4: 8.1 cm LVLd ap2: 7.7 cm LAV(MOD-sp2): 169.0 ml EDV(MOD-sp4): 86.4 ml EDV(MOD-sp2): 109.4 ml LAV(MOD-sp4): 165.9 ml EDV(sp4-el): 90.8 ml EDV(sp2-el): 113.7 ml LVAs ap4: 18.9 cm2 LVAs ap2: 21.3 cm2 LVLs ap4: 7.4 cm LVLs ap2: 7.4 cm ESV(MOD-sp4): 41.8 ml ESV(MOD-sp2): 53.0 ml ESV(sp4-el): 41.0 ml ESV(sp2-el): 52.1 ml EF(MOD-sp4): 51.6 % EF(MOD-sp2): 51.6 % EF(sp4-el): 54.8 % SV(MOD-sp4): 44.6 ml SV(MOD-sp2): 56.4 ml SV(sp4-el): 49.7 ml SI(MOD-sp4): 27.7 ml/m2 SI(MOD-sp2): 35.0 ml/m2 LA A4 area: 38.4 cm2 LA dimension(2D): 4.2 cm RA A4 area: 19.4 cm2 TAPSE: 2.0 cm Time Measurements MV dec time: 0.19 sec Doppler Measurements & Calculations MV E max luís: 122.2 cm/sec Lat Peak E' Luís: 7.3 cm/sec Med Peak E' Luís: 5.0 cm/sec MV A max luís: 39.1 cm/sec E/E' lat: 16.8 E/E' med: 24.3 MV E/A: 3.1 Ao V2 max: 98.2 cm/sec LV V1 max: 86.9 cm/sec MV dec slope: 646.5 cm/sec2 Ao max P.9 mmHg LV V1 max P.0 mmHg Ao V2 mean: 65.9 cm/sec LV V1 mean P.7 mmHg Ao mean P.1 mmHg LV V1 mean: 62.2 cm/sec Ao V2 VTI: 20.7 cm LV V1 VTI: 18.3 cm AV (velocity ratio): 0.88 PA V2 max: 55.5 cm/sec TR max luís: 347.1 cm/sec TR max P.2 mmHg ECHO/Echo Complete Interpretation Summary Mild concentric left ventricular hypertrophy. The left ventricular ejection fraction is 50 %. Stage 3 diastolic dysfunction. The left atrium is moderately enlarged. Mild focal mitral valve calcification. Mild (1+) mitral valve insufficiency. Moderate (2+) tricuspid valve insufficiency. Right ventricular systolic pressure estimated to be 63 mmHg. Aortic valve sclerosis without stenosis. Mild aortic valve regurgitation. Patent foramen ovale. Ordering Physician: Temo Rider Referring Physician: Adarsh Urbina Performed By: Yulissa Hassan RDCS
--- NOTE | 2025-07-10 16:10 | DCINST_ITS ---
Discharge Instructions DC O2, CPAP, BIPAP needs Home O2 Discharge instructions: No Dressing / Incision Discharge Activity: Return to Normal Activity Return to work on:: 07/14/25 Dressing / Incision Call your doctor if you observe: Fever of 101 or Higher, Shortness of breath, Dizziness, Fainting spells, Swelling in the ankles, Chest pain and Increased palpitations (irregular heartbeat) Follow Up Care Test Results: Test results from this visit will be discussed in further detail at your follow- up appointment, if applicable. Discharge Plan Admission Admit Date/Time: 07/10/25 08:06 Attending Provider: Temo Rider Primary Care Provider: Adarsh Urbina Instructions Patient Instructions: Heart Failure Flare Up Signs, ED Heart Failure, Congestive (CHF), ED CHF Left Side, Heart Failure Additional Instructions / Restrictions: Follow with your primary care doctor in 3 to 5 days to obtain lab work to monitor your kidney function Discharge Orders/Prescriptions Prescriptions: New azithromycin 250 mg Tablet 500 mg PO Q24 Qty: 3 0RF furosemide 20 mg Tablet 20 mg PO DAILY Qty: 30 0RF cefdinir 300 mg Capsule 300 mg PO Q12 Qty: 10 0RF Pulmicort Flexhaler 90 mcg/actuation aerosol powdr breath activated 1 inh inhalation BID Qty: 1 0RF Continued albuterol sulfate 90 mcg/actuation HFA aerosol inhaler 2 puff inhalation Q4H PRN PRN (Reason: Sob &/Or Wheezing) Qty: 8.5 0RF clonazepam 2 mg tablet 2 mg PO BID PRN (Reason: Anxiety) Patient Comments: TAKE 1 TABLET BY MOUTH TWICE DAILY IF NEEDED pregabalin 75 mg capsule 75 mg PO BID metoprolol succinate 100 mg tablet extended release 24 hr 100 mg PO DAILY rosuvastatin 5 mg tablet 5 mg PO DAILY Referrals / Follow Up: Michael Rogers DO [Med Staff - Active Staff, Pulmonary Medicine] - Within 1 Month Adarsh Urbina MD [Primary Care Provider, Family Practice] Hilario Durbin MD [Med Staff - Active Staff, Cardiology] - Within 1 Month Disposition Disposition (needs filled in before D/C Order can be placed): Home, Self Care
--- NOTE | 2025-07-10 16:10 | PCM.HP.STD ---
HPI - General General Date of Admission: 07/10/25 HPI Narrative ANTON MOISE, is a 74 F who presents to the hospital with chest pain and shortness of breath. She felt like there was a band around her chest when she came in to the ER. She was found to have a very elevated proBNP to 12,000 with minimally elevated troponins. Initially on presentation she was on room air but then required 2 L nasal cannula. She states that she has been having some increased shortness of breath over the last week but is also been having upper respiratory infection-like symptoms and has been using her albuterol inhaler multiple times a day. She says that she normally uses it every week but only once every couple of days. She has not seen her primary care doctor for this issue but does have an appointment scheduled with him on 07/29/2025. She also states that she has episodes of orthopnea and difficulty laying flat and gets short of breath. She does not require any oxygen at home but she still does use tobacco. [facility] Medical History History of ST elevation myocardial infarction (STEMI) (05/08/18) Paroxysmal atrial fibrillation Depression Essential hypertension Left atrial enlargement Secondary pulmonary hypertension Thyroid nodule GERD (gastroesophageal reflux disease) Atherosclerotic heart disease of [place] coronary artery without angina pectoris Anemia Sigmoid diverticulitis Hyperlipidemia COPD (chronic obstructive pulmonary disease) Atrial fibrillation with RVR (02/06/22) Irritable bowel Tobacco abuse Myoclonic disorder Home Medications Medication Instructions Recorded Last Taken Type albuterol sulfate 90 mcg/actuation 2 puff inhalation Q4H PRN PRN Sob 08/06/21 07/08/25 Rx aerosol inhaler &/Or Wheezing #8.5 grams clonazepam 2 mg tablet 2 mg PO BID PRN Anxiety 12/18/21 07/08/25 History azithromycin 250 mg tablet 500 mg (2 x 250 mg) PO Q24 #3 tabs 07/10/25 Unknown Rx budesonide 90 mcg/actuation breath 1 inh inhalation BID #1 ea 07/10/25 Unknown Rx activated powder inhaler (Pulmicort Flexhaler) cefdinir 300 mg capsule 300 mg PO Q12 #10 caps 07/10/25 Unknown Rx furosemide 20 mg tablet 20 mg PO DAILY #30 tabs 07/10/25 Unknown Rx metoprolol succinate 100 mg 100 mg PO DAILY 07/10/25 07/09/25 History tablet,extended release 24 hr pregabalin 75 mg capsule 75 mg PO BID swelling 07/10/25 07/08/25 History rosuvastatin 5 mg tablet 5 mg PO DAILY 07/10/25 07/07/25 History Allergy/AdvReac Type Severity Reaction Status Date / Time levofloxacin (From Levaquin) Allergy Rash Verified 05/29/22 16:59 phenytoin (From Dilantin) Allergy Swelling Verified 05/29/22 16:59 sertraline AdvReac Intermediate anxiety Verified 05/29/22 16:59 Family History Mother Hypertension CVA (cerebral vascular accident) CAD (coronary artery disease) Father Colon cancer Leukemia Throat cancer Surgical History History of cardioversion (06/2021) History of radiofrequency ablation procedure for cardiac arrhythmia (02/03/22) History of coronary artery stent placement (05/08/18) History of thyroidectomy History of breast lump removal History of left heart catheterization (10/04/14) History of lobectomy of thyroid History of total abdominal hysterectomy Social History housing: house number of children: 1 Smoking Status: Heavy Smoker (>10/day) Tobacco: How many years used: 50 alcohol intake: never substance use type: does not use ROS Constitutional Constitutional: Denies chills, fatigue, fever(s) or malaise Eyes Eyes: Denies blurry vision ENT HEENT: Reports nasal congestion, nasal discharge and post nasal drip; Denies headache(s) Cardiovascular Cardiovascular: Reports chest pain and orthopnea; Denies dyspnea on exertion or syncope Respiratory/Chest Respiratory/Chest: Reports cough, shortness of breath at rest and shortness of breath with exertion Gastrointestinal Gastrointestinal: Denies constipation, diarrhea, nausea or vomiting Genitourinary Genitourinary: Denies dysuria Neurologic Neurologic: Denies focal weakness, numbness or tremor(s) Psychiatric Psychiatric: Denies anxiety or depression Vital Signs Vital Signs Vital Signs: 07/10/25 04:55 07/10/25 05:24 07/10/25 05:51 Temperature 98.8 F Temperature Source Oral Pulse Rate 83 78 Respiratory Rate 31 H Respiratory Effort Normal Respiratory Depth Respiratory Pattern Blood Pressure 189/99 H 184/100 H Blood Pressure Mean 129 Blood Pressure Source Blood Pressure Position Blood Pressure Location Pulse Ox 95 Oxygen Delivery Method Room Air Oxygen Flow Rate (L/min) 07/10/25 07:17 07/10/25 08:00 07/10/25 08:43 Temperature 98.6 F Temperature Source Pulse Rate 75 75 75 Respiratory Rate 19 H 18 21 H Respiratory Effort Respiratory Depth Respiratory Pattern Normal Blood Pressure 157/89 H 172/98 H Blood Pressure Mean 111 122 Blood Pressure Source Blood Pressure Position Blood Pressure Location Pulse Ox 98 96 Oxygen Delivery Method Room Air Oxygen Flow Rate (L/min) 07/10/25 09:22 07/10/25 11:43 07/10/25 11:48 Temperature 98.1 F Temperature Source Oral Pulse Rate 72 70 Respiratory Rate 19 H 18 Respiratory Effort Respiratory Depth Respiratory Pattern Blood Pressure 169/94 H 146/86 H Blood Pressure Mean 119 106 Blood Pressure Source Monitor Blood Pressure Position Semi-Fowlers Blood Pressure Location Left Arm Pulse Ox 89 89 98 Oxygen Delivery Method Room Air Room Air Nasal Cannula Oxygen Flow Rate (L/min) 2 07/10/25 12:37 07/10/25 15:48 Temperature 97.7 F L Temperature Source Oral Pulse Rate 73 Respiratory Rate 16 Respiratory Effort Normal Non-Labored Respiratory Depth Normal Respiratory Pattern Normal Blood Pressure 130/65 H Blood Pressure Mean 86 Blood Pressure Source Monitor Blood Pressure Position Semi-Fowlers Blood Pressure Location Left Arm Pulse Ox 97 Oxygen Delivery Method Nasal Cannula Room Air Oxygen Flow Rate (L/min) 2 Weight Weight: 120 lb 5.958 oz Body Mass Index (BMI) 19.4 Physical Exam Narrative General: Alert, Oriented x3, Cooperative, No apparent distress HEENT: Atraumatic, PERRLA, EOMI, Normocephalic Oral: Moist Mucosa Neck: Supple, No JVD Lungs: Diminished, poor air movement, No rhonchi, No wheeze, No rales Cardiovascular: Regular rate, Regular Rhythm, Normal S1, Normal S2, No murmurs Abdomen: Soft, Non Tender, Non-Distended, No Hepato-splenomegaly Extremities: No edema, Capillary Refill Less than 3 Seconds, clubbing Skin: No rashes, No breakdown Musculoskeletal: No Tenderness to Palpation of Joints or Extremities Neurological: No focal neurological deficits, moves all extremities Psych/Mental Status: Normal Affect, Appropriate Results Lab / Micro Data 07/10/25 05:04 07/10/25 05:04 Labs: Laboratory Results - last 24 hr 07/10/25 05:04: WBC 9.6, RBC 4.25, Hgb 12.9, Hct 41.3, MCV 97.2, MCH 30.4, MCHC 31.2 L, RDW Std Deviation 49.4 H, RDW Coeff of Claudia 13.8, Plt Count 326, MPV 10.1, Immature Gran % (Auto) 0.300, Neut % (Auto) 80.6 H, Lymph % (Auto) 9.9 L, [place] % (Auto) 7.1, Eos % (Auto) 1.5, Baso % (Auto) 0.6, Absolute Neuts (auto) 7.8 H, Absolute Lymphs (auto) 0.95, Nucleated RBC % 0, Sodium 140, Potassium 4.0, Chloride 104, Carbon Dioxide 25.8, Anion Gap 11, BUN 16, Creatinine 0.94, Estim Creat Clear Calc 47.46 L, Est GFR (MDRD) Non-Af 64, BUN/Creatinine Ratio 16.9, Glucose 137 H, Calcium 9.2, Total Bilirubin 0.58, AST 30, ALT 36 H, Alkaline Phosphatase 96, Troponin T High Sens 28 H, Total Protein 7.2, Albumin 4.1, Globulin 3.1, Albumin/Globulin Ratio 1.4, Lipase 14 07/10/25 07:05: Troponin T Hi Sens 2 Hr 34 H, [place] [address] H 07/10/25 09:18: Troponin T Hi Sens 4Hr 39 H Rhythm Strip Rhythm Strip: Sinus Rhythm Rate: 80 Ectopy: None Imaging Radiology Impression Chest X-Ray 07/10/25 05:40 IMPRESSION: Emphysema. Bilateral blunting of the costophrenic angles, probably adhesions. Bilateral basilar atelectatic pulmonary changes/infiltrates. Enlarged cardiac silhouette. Reading Location: [place] [id number] Echocardiogram 07/10/25 13:30 Interpretation Summary Mild concentric left ventricular hypertrophy. The left ventricular ejection fraction is 50 %. Stage 3 diastolic dysfunction. The left atrium is moderately enlarged. Mild focal mitral valve calcification. Mild (1+) mitral valve insufficiency. Moderate (2+) tricuspid valve insufficiency. Right ventricular systolic pressure estimated to be 63 mmHg. Aortic valve sclerosis without stenosis. Mild aortic valve regurgitation. Patent foramen ovale. Ordering Physician: Temo Rider Referring Physician: Adarsh Urbina Performed By: Yulissa Hassan RDCS Assessment & Plan Assessment/Plan (1) Chest pain: PLAN: Plan 1. Chest pain with shortness of breath in the setting of a history of COPD/essential HTN/HLD – Troponins are minimally elevated at 28 initially then 2 hours was 34 and 4 hours was 39 – proBNP was 12,680 – Will obtain a stress test and echocardiogram for further evaluation – Continue with her home metoprolol and her home Crestor 2. COPD – Unclear if she is in exacerbation at the moment will have an ambulatory pulse ox and see if we can wean her off of oxygen – She does have poor air movement but this is likely at baseline given the clubbing of her fingers – She does not have a administrative coordinator she will likely need 1 on discharge – She says that she cannot take steroids – She was having signs and symptoms consistent with an upper respiratory infection recently, denies any fevers or chills but chest x-ray on admission does show possible infiltrates 3. Anxiety/depression/neuropathy – Stable – Continue with her home medications DVT: Ambulation
== END 2025-07-10 18:01 | disposition home or self-care (01) ==
LOC: ED 06:03 → PCU 08:18
PROVIDERS: Admitting Provider Family Medicine; Emergency Provider Emergency Medicine; PCP Family Medicine; Visit Provider Family Medicine
DX: R07.89 Other chest pain (principal); I27.21 Secondary pulmonary arterial hypertension; J44.9 Chronic obstructive pulmonary disease, unspecified; I48.0 Paroxysmal atrial fibrillation; Z95.5 Presence of coronary angioplasty implant and graft; E78.5 Hyperlipidemia, unspecified; F17.210 Nicotine dependence, cigarettes, uncomplicated; I10 Essential (primary) hypertension; R00.2 Palpitations; G62.9 Polyneuropathy, unspecified; I25.10 Atherosclerotic heart disease of native coronary artery without angina pectoris; Z79.51 Long term (current) use of inhaled steroids; R06.02 Shortness of breath; K21.9 Gastro-esophageal reflux disease without esophagitis; Z79.899 Other long term (current) drug therapy; Z79.82 Long term (current) use of aspirin; F41.9 Anxiety disorder, unspecified; F32.A Depression, unspecified; I08.1 Rheumatic disorders of both mitral and tricuspid valves
CPT/HCPCS: 71046; 78452; 80053; 83690; 83880; 84484; 85025; 93005; 93017; 93306; 94640; 96365; 96375; 99221; 99285; A9500; A4216; G0378; J2405; J2785

== ENCOUNTER 2025-07-23 10:51 | Emergency (ER) | payer MEDICARE, SELFPAY ==
[2025-07-23] VITALS (7 sets, daily range): BP systolic 159–177; BP diastolic 96–110; PULSE 70–99; RESP 14–24; TEMP 36.4; O2SAT 95–98; BMI 19.7
--- NOTE | 2025-07-23 11:03 | RAD_ITS ---
PROCEDURE: RAD/Chest 1 View (Portable)
[2025-07-23 11:14] LABS: Hematocrit 41.6 % (37-47); Hemoglobin 13.2 g/dL (12.0-15.0); Immature Granulocytes Count 0.020 X10^3/uL (0.0-0.0); Mean Corp Hgb Conc 31.7 g/dL (32-36); Mean Corpuscular Volume 95.9 fL (81-99); Mean Platelet Vol. 9.8 fl (6.2-12.0); NRBC Flagged by Analyzer 0 % (0-5); Platelet Count 268 K/mm3 (150-450); RBC Distribution Width CV 13.6 % (11.6-14.6); RBC Distribution Width SD 48.2 fl (35.1-43.9); Red Blood Count 4.34 M/mm3 (4.2-5.4); White Blood Count 5.6 K/mm3 (4.4-11.0)
[2025-07-23 11:36] LABS: Anion Gap 13 (5-15); BUN 9 mg/dL (4-19); BUN/Creat Ratio 9.0 RATIO (10-20); Calcium,Total 9.0 mg/dL (7.6-11.0); Carbon Dioxide 23.4 mmol/L (21.0-32.0); Chloride 103 mmol/L (98-108); Estimated Creatinine Clearance 42.82 ml/min (50-250); Glucose 129 mg/dL (70-99); Potassium 3.8 mmol/L (3.3-5.1); Pro- Brain NATRIURETIC PEPTIDE 9531 pg/mL (<=900)
--- NOTE | 2025-07-23 12:19 | EKG12_ITS ---
Test Reason : SOB
--- NOTE | 2025-07-23 12:25 | ED.VIS.DYS ---
HPI History of Present Illness Chief Complaint: Shortness of Breath Informant: patient and family Narrative Narrative: Patient is a 75-year-old female with a history of COPD and AFib presenting with dyspnea, wheezing, and bilateral lower extremity edema. - Reports worsening dyspnea since yesterday, describing it as feeling smothered. - Unable to sleep or lie down last night due to dyspnea; experiences orthopnea, stating she is okay sitting up but becomes dyspneic when lying down. - Recent hospitalization for similar symptoms; diagnosed with stage 3 COPD. - Prescribed an inhaler and completed a course of antibiotics about a week ago; did not take prescribed prednisone due to side effects. - Reports increased wheezing and cough with sputum production; denies hemoptysis. - Denies chest pain, fever, abdominal pain, or emesis. - Not on home oxygen. - Noted bilateral lower extremity edema starting last night, had this couple weeks ago in the hospital but was better until yesterday. - Denies history of blood clots; previously on Eliquis for AFib. - Continues to smoke, though less recently. Grandson estimates prior to the last couple days, 2 packs/day. [facility] Medical History History of ST elevation myocardial infarction (STEMI) (05/08/18) Paroxysmal atrial fibrillation Depression Essential hypertension Left atrial enlargement Secondary pulmonary hypertension Thyroid nodule GERD (gastroesophageal reflux disease) Atherosclerotic heart disease of [place] coronary artery without angina pectoris Anemia Sigmoid diverticulitis Hyperlipidemia COPD (chronic obstructive pulmonary disease) Atrial fibrillation with RVR (02/06/22) Irritable bowel Tobacco abuse Myoclonic disorder Home Medications ?Medication ?Instructions ?Recorded ?Last Taken ?Type albuterol sulfate 90 mcg/actuation 2 puff inhalation Q4H PRN PRN Sob 08/06/21 07/08/25 Rx aerosol inhaler &/Or Wheezing #8.5 grams clonazepam 2 mg tablet 2 mg PO BID PRN Anxiety 12/18/21 07/08/25 History budesonide 90 mcg/actuation breath 1 inh inhalation BID #1 ea 07/10/25 Unknown Rx activated powder inhaler (Pulmicort Flexhaler) furosemide 20 mg tablet 20 mg PO DAILY #30 tabs 07/10/25 Unknown Rx Held on 07/23/25. Instructions: until finished with twice daily lasix metoprolol succinate 100 mg 100 mg PO DAILY 07/10/25 07/09/25 History tablet,extended release 24 hr pregabalin 75 mg capsule 75 mg PO BID swelling 07/10/25 07/08/25 History rosuvastatin 5 mg tablet 5 mg PO DAILY 07/10/25 07/07/25 History doxycycline monohydrate 25 mg/5 mL 100 mg (20 mL) PO BID 7 days #280 07/23/25 Unknown Rx oral suspension mL furosemide 20 mg tablet (Lasix) 20 mg PO BID PRN edema #30 tabs 07/23/25 Unknown Rx Allergy/AdvReac Type Severity Reaction Status Date / Time levofloxacin (From Levaquin) Allergy Rash Verified 07/23/25 10:51 phenytoin (From Dilantin) Allergy Swelling Verified 07/23/25 10:51 sertraline AdvReac Intermediate anxiety Verified 07/23/25 10:51 Family History Mother Hypertension CVA (cerebral vascular accident) CAD (coronary artery disease) Father Colon cancer Leukemia Throat cancer Surgical History History of cardioversion (06/2021) History of radiofrequency ablation procedure for cardiac arrhythmia (02/03/22) History of coronary artery stent placement (05/08/18) History of thyroidectomy History of breast lump removal History of left heart catheterization (10/04/14) History of lobectomy of thyroid History of total abdominal hysterectomy Social History housing: house number of children: 1 Smoking Status: Heavy Smoker (>10/day) Tobacco: How many years used: 50 alcohol intake: never substance use type: does not use ROS ROS ED Constitutional Constitutional ED: Denies chills or fever(s) Eyes Eyes: Denies change in vision or diplopia ENT ENT ED: Denies rhinorrhea or sore throat Cardiovascular Cardiovascular: Reports leg edema and orthopnea; Denies chest pain or palpitations Respiratory/Chest Respiratory/Chest: Reports cough, dyspnea, dyspnea on exertion, orthopnea and sputum Gastrointestinal Gastrointestinal: Denies abdominal pain, diarrhea, nausea or vomiting Genitourinary Genitourinary ED: Denies dysuria or hematuria Musculoskeletal Musculoskeletal: Denies back pain or neck pain Integumentary Denies abscess or rash Neurologic Neurologic: Denies headache(s), paresthesias or weakness Psychiatric Psychiatric: Reports anxiety; Denies suicidal thoughts EXAM Physical Exam Const Vital Signs: 07/23/25 10:52 07/23/25 11:20 07/23/25 11:24 Temperature 97.6 F L Temperature Source Oral Pulse Rate 99 Respiratory Rate 18 Respiratory Effort Short of Breath Respiratory Depth Normal Respiratory Pattern Normal Blood Pressure 175/106 H Blood Pressure Mean 129 Pulse Ox 96 Oxygen Delivery Method Room Air Room Air Room Air 07/23/25 11:24 07/23/25 11:30 07/23/25 12:00 Temperature Temperature Source Pulse Rate 90 70 Respiratory Rate 24 H 14 Respiratory Effort Short of Breath Respiratory Depth Respiratory Pattern Normal Blood Pressure 159/110 H 163/99 H Blood Pressure Mean 126 120 Pulse Ox 95 98 Oxygen Delivery Method Room Air Room Air 07/23/25 12:30 07/23/25 12:32 07/23/25 12:56 Temperature Temperature Source Pulse Rate 88 88 Respiratory Rate 22 H 16 Respiratory Effort Short of Breath Respiratory Depth Respiratory Pattern Blood Pressure 177/102 H Blood Pressure Mean 127 Pulse Ox 96 Oxygen Delivery Method Room Air 07/23/25 13:14 07/23/25 15:21 Temperature 97.6 F L Temperature Source Oral Pulse Rate 88 82 Respiratory Rate 22 H 18 Respiratory Effort Respiratory Depth Respiratory Pattern Blood Pressure 163/99 H 166/96 H Blood Pressure Mean 120 119 Pulse Ox 97 95 Oxygen Delivery Method Room Air Room Air Positive well nourished and well developed General Appearance ED: well developed and NAD HEENT Reports moist mucous membranes normocephalic and atraumatic Eyes PERRL and EOMs intact bilaterally Neck full ROM and supple Neck Narrative: Mild JVD present if at all Resp normal respiratory effort and clear to auscultation bilaterally Resp Narrative: Diminished throughout but otherwise clear no splinting with deep inspiration equal breath sounds present bilaterally trachea midline Cardio regular rate and regular rhythm GI non-tender and non-distended Auscultation: normoactive bowel sounds Palpation: soft Back/Spine no CVA tenderness General Back: other FROM Extremity normal to inspection General Extremety ED: Yes edema; Negative for pulses abnormal or tenderness General Extremity: edema bilateral lower extremity Details: moderate (To about mid parekh bilaterally); Negative for pulses abnormal Neuro oriented x3, CN's II-XII intact bilaterally and no sensory deficits noted Sensorium / Orientation: awake and alert Motor Exam: strength 5/5 throughout Psych mental status grossly normal Skin no rashes or lesions noted and no wounds MDM MDM MDM Narrative Medical decision making narrative: I reviewed the patient?s hospital records. She was recently admitted and discharged about 1.5 to 2 weeks ago. It was unclear whether she was experiencing a COPD exacerbation or if this was diastolic congestive heart failure with pulmonary hypertension, but she did have a stress echo showing an EF of around 50%. It did not appear that she suffered an MN during that admission. Steroids were avoided because she experiences side effects from them and does not want them, so she was started on Lasix instead. She reports that she has been taking Lasix, and her swelling improved while she was in the hospital but has returned in her legs as of yesterday and today. She has not yet taken her Lasix today. In addition to administering a nebulizer treatment, we are giving her 40 mg IV Lasix and repeating her laboratory workup, chest X-ray, and EKG. My interpretation of the patient?s 2D chest X-ray shows mild cephalization and mild edema, with no focal findings. Radiology agrees but notes that a focal infiltrate in the lingula cannot be ruled out. Her labs show no leukocytosis, with a white blood cell count of 5.6 and no significant shift. Renal function and electrolytes are normal. Her proBNP is 9,531, which is lower than the 12,680 measured 1.5 weeks ago. Nonspecific troponin elevations are again present now, with an initial troponin of 28 and a second measurement of 30, which I interpret as essentially flat. Her EKG shows some nonspecific strain-like patterns laterally suggestive of LV strain, which is grossly unchanged from her prior EKG. We treated her with a DuoNeb and 40 mg IV Lasix, as she had only been taking 40 mg orally in the mornings. She urinated eight times and felt much better afterward. She ambulated down the loza without becoming hypoxic and did very well. Given her recent negative stress test and the echo findings, I do not believe she requires readmission and feel she can be managed as an outpatient. She is awaiting outpatient appointments with cardiology and pulmonology and already has a primary care follow-up on the . In the meantime, I will have her increase her Lasix to 20 mg twice daily for the next four days (and longer if needed) and start empiric antibiotics, given the possibility of a COPD and/or infectious component. As we discussed, there is probably significant overlap in etiology among her diastolic congestive heart failure, pulmonary hypertension, and COPD. Outpatient follow-up is advised, and she has been instructed to call after the weekend to ensure close outpatient follow-up with cardiology and pulmonology. She and her grandson are comfortable with this plan. History & Record Review Additional record(s) reviewed:: Prior inpatient record Lab Data Attestation: I reviewed the patient's lab results. Labs: Laboratory Results - last 24 hr 07/23/25 07/23/25 11:10 14:00 WBC 5.6 RBC 4.34 Hgb 13.2 Hct 41.6 MCV 95.9 MCH 30.4 MCHC 31.7 L RDW Std Deviation 48.2 H RDW Coeff of Claudia 13.6 Plt Count 268 MPV 9.8 Immature Gran % (Auto) 0.400 Neut % (Auto) 76.3 H Lymph % (Auto) 11.8 L [place] % (Auto) 9.0 Eos % (Auto) 2.0 Baso % (Auto) 0.5 Absolute Neuts (auto) 4.3 Absolute Lymphs (auto) 0.66 L Nucleated RBC % 0 Sodium 139 Potassium 3.8 Chloride 103 Carbon Dioxide 23.4 Anion Gap 13 BUN 9 Creatinine 1.01 Estim Creat Clear Calc 42.82 L Est GFR (MDRD) Non-Af 58 L BUN/Creatinine Ratio 9.0 L Glucose 129 H Calcium 9.0 Troponin T High Sens 28 H Troponin T Hi Sens 2 Hr 30 H NT pro BNP II 9531 H Radiography Diagnostic Testing: Clinical Impression(s) from Imaging Studies Chest X-Ray 07/23/25 11:03 IMPRESSION: 1. Bilateral peribronchiolar thickening, can be seen with interstitial edema or small airways disease. 2. Small opacity in the lingula, likely atelectasis or infiltrate. Reading Location: [facility] Rhythm Strip Rhythm Strip: Sinus Rhythm Rate: 85 Ectopy: None EKG Initial EKG: Attestation: I personally reviewed and interpreted this EKG as follows: Interpretation: Sinus Rhythm, No Acute Injury Pattern and Non-Specific ST Changes (laterally c/w LV strain) Prior EKG tracings: available for review Prior: Unchanged Discharge Plan Triage Chief Complaint: Shortness of Breath ED Provider: Walter Alston Dx/Rx/DC Orders Clinical Impression: Acute on chronic diastolic (congestive) heart failure, Acute exacerbation of chronic obstructive pulmonary disease (COPD), Primary pulmonary hypertension Instructions: Heart Failure Flare Up Signs Prescriptions: New doxycycline monohydrate 25 mg/5 mL suspension for reconstitution 100 mg PO BID 7 Days Qty: 280 0RF furosemide [Lasix] 20 mg tablet 20 mg PO BID PRN (Reason: edema) Qty: 30 0RF Continued albuterol sulfate 90 mcg/actuation HFA aerosol inhaler 2 puff inhalation Q4H PRN PRN (Reason: Sob &/Or Wheezing) Qty: 8.5 0RF clonazepam 2 mg tablet 2 mg PO BID PRN (Reason: Anxiety) Patient Comments: TAKE 1 TABLET BY MOUTH TWICE DAILY IF NEEDED pregabalin 75 mg capsule 75 mg PO BID metoprolol succinate 100 mg tablet extended release 24 hr 100 mg PO DAILY rosuvastatin 5 mg tablet 5 mg PO DAILY Pulmicort Flexhaler 90 mcg/actuation aerosol powdr breath activated 1 inh inhalation BID Qty: 1 0RF Held furosemide 20 mg Tablet 20 mg PO DAILY Qty: 30 0RF Hold Instructions: until finished with twice daily lasix Discontinued azithromycin 250 mg Tablet 500 mg PO Q24 Qty: 3 0RF cefdinir 300 mg Capsule 300 mg PO Q12 Qty: 10 0RF Primary Care Provider: Adarsh Urbina Referrals: Adarsh Urbina MD [Primary Care Provider, Family Practice] - Keep Jermain appointment Referral Note: and cardiology/pulmonary LAN Activity Restrictions/Additional Instructions: - Take furosemide (Lasix) 40 mg by mouth twice daily for the next 4 days; after that, continue or adjust the dose based on how your legs feel and call if swelling returns. - Begin the prescribed antibiotic regimen as directed for possible COPD flare and lung infection. - If you get diarrhea due to the antibiotic, eat yogurt or take probiotic daily. - Keep track of your breathing and leg swelling; note any increase in shortness of breath, wheezing, cough, or swelling. - Call after the weekend to confirm that you have scheduled outpatient cardiology and pulmonology appointments. - Keep your primary care appointment on the as planned. Print Language: [place] Disposition Disposition: Home, Self Care
[2025-07-23 12:43] LABS: Troponin T High Sensitivity 28 ng/L (<=14)
[2025-07-23 14:40] LABS: Troponin T High Sens 2 HR 30 ng/L (<=14)
== END 2025-07-23 16:49 | disposition home or self-care (01) ==
PROVIDERS: Emergency Provider Emergency Medicine; PCP Family Medicine; Visit Provider Emergency Medicine
DX: I11.0 Hypertensive heart disease with heart failure (principal); I50.33 Acute on chronic diastolic (congestive) heart failure; J44.9 Chronic obstructive pulmonary disease, unspecified; I48.0 Paroxysmal atrial fibrillation; Z90.710 Acquired absence of both cervix and uterus; I25.10 Atherosclerotic heart disease of native coronary artery without angina pectoris; E78.5 Hyperlipidemia, unspecified; R06.02 Shortness of breath; I25.2 Old myocardial infarction; Z79.899 Other long term (current) drug therapy; Z95.5 Presence of coronary angioplasty implant and graft; F17.200 Nicotine dependence, unspecified, uncomplicated
CPT/HCPCS: 71045; 80048; 83880; 84484; 85025; 93005; 94640; 94760; 96374; 99285; A4216; J1938

== ENCOUNTER 2025-08-26 13:46 | Emergency (ER) | payer MEDICARE, SELFPAY ==
[2025-08-26 13:46] VITALS: BP 208/104; PULSE 107; RESP 18; TEMP 36.4; O2SAT 98; BMI 17.6
--- NOTE | 2025-08-26 13:52 | EDS_ITS ---
HPI History of Present Illness Chief Complaint: Palpitations Narrative Narrative: Patient is a 75-year-old female presenting to the emergency department for palpitations, back pain and not feeling well. Patient has a past medical history of pulmonary hypertension, paroxysmal A-fib, STEMI with stent placement in 2017, cardiac ablation in 2021 and tobacco use. Patient states that she does not take her medications as prescribed, has missed multiple doses of Eliquis, metoprolol and Lasix. States for the past few weeks she has felt unwell. She states that today she was at work and felt nauseous and had an episode of nonbloody, nonbilious emesis. Coworker supposedly checked her blood pressure and told her that she was in A-fib and to come to the emergency department. She endorses lower back pain. States during the episode of nausea she did have chest pain that is now resolved. She denies any fever, chills, shortness of breath, abdominal pain, lower extremity edema. [facility] Medical History History of ST elevation myocardial infarction (STEMI) (05/08/18) Paroxysmal atrial fibrillation Depression Essential hypertension Left atrial enlargement Secondary pulmonary hypertension Thyroid nodule GERD (gastroesophageal reflux disease) Atherosclerotic heart disease of lime coronary artery without angina pectoris Anemia Sigmoid diverticulitis Hyperlipidemia COPD (chronic obstructive pulmonary disease) Atrial fibrillation with RVR (02/06/22) Irritable bowel Tobacco abuse Myoclonic disorder Home Medications ?Medication ?Instructions ?Recorded ?Last Taken ?Type albuterol sulfate 90 mcg/actuation 2 puff inhalation Q 4H PRN PRN Sob 08/06/21 07/08/25 Rx aerosol inhaler &/Or Wheezing #8.5 grams clonazepam 2 mg tablet 2 mg PO BID PRN Anxiety 04/03/0507/08/25 History budesonide 90 mcg/actuation breath 1 inh inhalation BI D #1 ea 07/10/25 Unknown Rx activated powder inhaler (Pulmicort Flexhaler) furosemide 20 mg tablet 20 mg PO DAILY #30 tabs 06/15 04/07 Unknown Rx Held on 07/23/25. Instructions: until finished with twice daily lasix metoprolol succinate 100 mg 100 mg PO DAILY 07/10/25 1 History tablet,extended release 24 hr pregabalin 75 mg capsule 75 mg PO BID swelling 07/08/25 History rosuvastatin 5 mg tablet 5 mg PO DAILY 07/10/2507/07 History doxycycline monohydrate 25 mg/5 mL 100 mg (20 mL) PO B ID 7 days #280 07/23/25 Unknown Rx oral suspension mL furosemide 20 mg tablet (Lasix) 20 mg PO BID PRN edema #30 tabs 07/23/25 Unknown Rx Allergy/AdvReac Type Severity Reaction Status Date / Time levofloxacin (From Levaquin) Allergy Rash Verified 08/26/25 13:49 phenytoin (From Dilantin) Allergy Swelling Verified 08/26/25 13:49 sertraline AdvReac Intermediate anxiety Verified 08/26/25 13:49 Family History Mother Hypertension CVA (cerebral vascular accident) CAD (coronary artery disease) Father Colon cancer Leukemia Throat cancer Surgical History History of cardioversion (06/2021) History of radiofrequency ablation procedure for cardiac arrhythmia (02/03/22) History of coronary artery stent placement (05/08/18) History of thyroidectomy History of breast lump removal History of left heart catheterization (10/04/14) History of lobectomy of thyroid History of total abdominal hysterectomy Social History housing: house number of children: 1 Smoking Status: Heavy Smoker (>10/day) Tobacco: How many years used: 50 alcohol intake: never substance use type: does not use ROS ROS ED ROS Narrative See HPI EXAM Physical Exam Narrative Exam Narrative: Vital signs: Reviewed General: Alert and orientedx3. No acute distress. Chronically ill appearing. Nontoxic. HEENT: Head is normocephalic and atraumatic, sinuses nontender, pupils equal round and reactive. Nares are patent. Oropharynx and throat exams normal. Neck: Supple without lymphadenopathy nontender Cardiovascular: Tachycardic rate and regular rhythm, no murmurs. No rubs or gallops. Normal S1 and S2 Respiratory: Clear to auscultation bilaterally. No wheezes, rales, rhonchi Abdominal: Soft and nontender. Normal bowel sounds. No guarding or rebound. Nonsurgical abdomen. No CVA tenderness to palpation. Back: No midline thoracic or lumbar spinal tenderness to palpation. No step- offs or deformities. No rashes to the back. Extremities: No lower extremity edema. No tenderness. No bruising. Normal range of motion. Normal sensation. Skin: No rash or redness. Neurological: Cranial nerves II through XII are grossly intact. Normal strength and sensation. Normal cerebellar function The rest of the physical exam is unremarkable Const Vital Signs: 08/26/25 13:46 08/26/25 14:46 08/26/25 15:00 Temperature 97.6 F L Temperature Source Oral Pulse Rate 107 H 84 Respiratory Rate 18 Blood Pressure 208/104 H 181/112 H 178/108 H Blood Pressure Mean 138 135 131 Pulse Ox 98 Oxygen Delivery Method Room Air MDM MDM MDM Narrative Medical decision making narrative: Patient is a 75-year-old female presenting to the emergency department for multiple complaints that can be seen in HPI. Patient was seen and examined. Vitals are stable. She is mildly tachycardic on arrival at 107. She is hypertensive at 208/104. She states she is noncompliant with her medications. She is afebrile saturating 98% on room air. Differential includes but is not limited to: Cardiac dysrhythmia, ACS, pneumonia, aortic dissection, CHF exacerbation, COPD exacerbation Patient was given her home antihypertensive, metoprolol. EKG shows sinus tachycardia at a rate of 102 with PACs. Evidence of LVH. There is no ischemic changes. Prolonged QT of 510 appears similar to prior EKG done on 07/23/2025. CBC with no leukocytosis and a normal hemoglobin. CMP with [place]. [place] [address], almost doubled since 07/23 when it was 9531. Troponin elevated at 29, consistent with her prior troponins. Urinalysis with no evidence of urinary tract infection. Viral swab is negative. CTA shows no evidence of aortic aneurysm, rupture or dissection. Severe atherosclerotic plaque is present. No evidence of acute or chronic pulmonary embolus. Cardiac enlargement. Coronary artery disease. [id number]-dorbln atherosclerotic plaque left renal artery-possibly flow-limiting. Severe atherosclerotic plaque is flow-limiting on the right side with mild atrophy of the right kidney. This can be associated with hypertension. These are likely chronic given the atrophy seen of the right kidney. I discussed the findings with the patient and daughter at bedside. Explained to patient that we are waiting on the second troponin level to verify that there is no significant delta change. Patient states that she would like to leave before this is back. I explained that she would need to sign AGAINST MEDICAL ADVICE paperwork given her workup was not completed and she came in with what I presume to be possible cardiac complaints given the nausea and heart palpitations. She has capacity to make these decisions. Daughter was at bedside during the discussion. AMA paperwork signed. I recommended that she follow-up with her primary care doctor soon as possible and return at any time if she would like reevaluation for her symptoms. She is agreeable. Clinical impression Palpitations EKG Back pain Fatigue Medication noncompliance Elevated BNP History & Record Review Discussion w/independent historian: Patient and Family Additional record(s) reviewed:: Prior ED visit and Prior labs Lab Data Attestation: I reviewed the patient's lab results. Labs: Laboratory Results - last 24 hr 08/26/25 08/26/25 14:02 14:17 WBC 8.9 RBC 4.42 Hgb 13.1 Hct 41.5 MCV 93.9 MCH 29.6 MCHC 31.6 L RDW Std Deviation 47.0 H RDW Coeff of Claudia 13.6 Plt Count 278 MPV 9.8 Immature Gran % (Auto) 0.300 Neut % (Auto) 88.7 H Lymph % (Auto) 7.0 L [place] % (Auto) 3.5 Eos % (Auto) 0.2 Baso % (Auto) 0.3 Absolute Neuts (auto) 7.8 H Absolute Lymphs (auto) 0.62 L Nucleated RBC % 0 Sodium 137 Potassium 3.6 Chloride 98 Carbon Dioxide 26.2 Anion Gap 13 BUN 17 Creatinine 1.00 Estim Creat Clear Calc 40.96 L Est GFR (MDRD) Non-Af 59 L BUN/Creatinine Ratio 16.6 Glucose 111 H Calcium 9.4 Total Bilirubin 0.60 AST 25 ALT 17 Alkaline Phosphatase 94 Troponin T High Sens 29 [place] [address] H Total Protein 7.5 Albumin 4.3 Globulin 3.2 Albumin/Globulin Ratio 1.4 Urine Color Yellow Urine Clarity Clear Urine pH 7.0 Ur Specific [place] 1.010 Urine Protein 500 H Urine Glucose (UA) Normal Urine Ketones Negative Urine Occult Blood 25 H Urine Nitrite Negative Urine Bilirubin Negative Urine Urobilinogen Normal Ur Leukocyte Esterase Negative Urine RBC 0-5 SEEN Urine WBC 0-5 SEEN Ur Squamous Epith Cells 0-5 SEEN Urine Bacteria 0 SEEN Urine Mucus 0 SEEN Radiography Diagnostic Testing: Clinical Impression(s) from Imaging Studies Chest/Abdomen/Pelvis CTA 08/26/25 14:05 IMPRESSION: 1. No evidence of aortic aneurysm, rupture or dissection. Severe atherosclerotic plaque is present. 2. No evidence of acute or chronic pulmonary embolus. Cardiac enlargement. Coronary artery disease. 3. Kginfsie-xl-vafuhx atherosclerotic plaque left renal artery-possibly flow- limiting. Severe atherosclerotic plaque is flow-limiting on the right side with mild atrophy of the right kidney. This can be associated with hypertension. Reading Location: [facility] Discharge Plan Triage Chief Complaint: Palpitations ED Provider: Glory Guerin Dx/Rx/DC Orders Clinical Impression: Heart palpitations, Hx of medication noncompliance, Elevated brain natriuretic peptide (BNP) level, Fatigue, Back pain Instructions: Heart Failure Meds, Understanding Heart Palpitations Prescriptions: No Action albuterol sulfate 90 mcg/actuation HFA aerosol inhaler 2 puff inhalation Q4H PRN PRN (Reason: Sob &/Or Wheezing) Qty: 8.5 0RF clonazepam 2 mg tablet 2 mg PO BID PRN (Reason: Anxiety) Patient Comments: TAKE 1 TABLET BY MOUTH TWICE DAILY IF NEEDED pregabalin 75 mg capsule 75 mg PO BID metoprolol succinate 100 mg tablet extended release 24 hr 100 mg PO DAILY rosuvastatin 5 mg tablet 5 mg PO DAILY furosemide 20 mg Tablet 20 mg PO DAILY Qty: 30 0RF Pulmicort Flexhaler 90 mcg/actuation aerosol powdr breath activated 1 inh inhalation BID Qty: 1 0RF doxycycline monohydrate 25 mg/5 mL suspension for reconstitution 100 mg PO BID 7 Days Qty: 280 0RF furosemide [Lasix] 20 mg tablet 20 mg PO BID PRN (Reason: edema) Qty: 30 0RF Primary Care Provider: Adarsh Urbina Referrals: Adarsh Urbina MD [Primary Care Provider, Family Practice] - As soon as possible Activity Restrictions/Additional Instructions: Please take your medications as prescribed. You left AGAINST MEDICAL ADVICE, you can return at any time if you would like reevaluation for your symptoms. Follow-up with your primary care doctor soon as possible. Print Language: Armenian Disposition Disposition: Home, Self Care Discharge Date/Time: 08/26/25 16:06
--- NOTE | 2025-08-26 14:05 | CT_ITS ---
PROCEDURE: CTA CHST, ABD, PEL W AND/OR WO 08/26/2025 REASON FOR EXAM: BACK PAIN, HTN, R/O AORTIC DISSECTION TECHNIQUE: Procedure Code: CTCTA.CHAP.2 Modality: CT Procedure: CTA CHST, ABD, PEL W AND/OR WO Coronal and Sagittal reconstruction series were provided. One or more dose reduction techniques were used (e.g., Automated exposure control, adjustment of the mA and/or kV according to patient size, use of iterative reconstruction technique. CONTRAST: Isovue 370 VOLUME: 100 mL RADIATION DOSE SUMMARY: CTDlvol: 18 mGy DLP: 775 mGycm COMPARISON: July 23, 2025, July 10, 2025 FINDINGS: Aorta: Timing and quality of the contrast bolus is diagnostic. There is no evidence of aortic rupture, dissection or aneurysm. Iqzmhgve-pc-[id number] atherosclerotic plaque is shown along the length of the entire aorta. The left vertebral artery originates directly from the aorta, a normal variant. Mild atherosclerotic plaque of the origin of the celiac, SMA and TRIPP. Hgtpxzlz-[id number] atherosclerotic plaque of the origin of the left renal artery. Severe, flow-limiting stenosis right renal artery. CHEST: Lines and tubes: None Mediastinum: Small sliding hiatus hernia. No mass. Heart: Cardiac enlargement. No pericardial effusion. Coronary artery atherosclerosis. No evidence of acute or chronic pulmonary embolus. Lungs and Airways: Severe emphysema is present. No consolidation or mass. Mild subpleural scarring inferior lingula, right middle lobe and both lower lobes. Pleura: No pleural effusion or pneumothorax. ABDOMEN AND PELVIS: Liver: Normal Gallbladder: Normal Spleen: Normal Pancreas: Normal Adrenals: Normal Kidneys: Right kidney is smaller than the left with some cortical thinning. The nephrogram is less intense related to significant atherosclerosis. Bladder: Nearly empty but otherwise normal. Reproductive Organs: Hysterectomy Bowel: Stomach is normal. Small bowel is unremarkable. Colonic diverticulosis is seen. Modest amount of formed stool in the rectum. Appendix is normal. Peritoneum / Retroperitoneum: No free air, free fluid or mass. Bones: Degenerative changes thoracic and lumbar spine. CT/CTA Chst, Abd, Pel W and/or WO IMPRESSION: 1. No evidence of aortic aneurysm, rupture or dissection. Severe atherosclero tic plaque is present. 2. No evidence of acute or chronic pulmonary embolus. Cardiac enlargement. C oronary artery disease. 3. Zgqzqzvr-rf-[id number] atherosclerotic plaque left renal artery-possibly flow-l imiting. Severe atherosclerotic plaque is flow-limiting on the right side with mild atrophy of the right kidney. This ca n be associated with hypertension. Reading Location: [id number]
[2025-08-26 14:27] LABS: Mucous, Urine 0 SEEN /hpf (<or=2+)
[2025-08-26 14:29] LABS: Color, Urine Yellow (Yellow); Glucose, Dipstick Normal (Normal); Ketone-Dipstick Negative (Negative); Leukocyte Esterase-Dipstick Negative /ul (Negative); Nitrite-Dipstick Negative (Negative); Occult Blood-Urine 25 /ul (Negative); Protein-Dipstick 500 mg/dl (Negative); Specific Gravity, Urine 1.010 (1.002-1.030); Urine Bilirubin Dipstick Negative (Negative)
[2025-08-26 14:29] LABS: Hematocrit 41.5 % (37-47); Hemoglobin 13.1 g/dL (12.0-15.0); Immature Granulocytes Count 0.030 X10^3/uL (0.0-0.0); Mean Corp Hgb Conc 31.6 g/dL (32-36); Mean Corpuscular Volume 93.9 fL (81-99); Mean Platelet Vol. 9.8 fl (6.2-12.0); NRBC Flagged by Analyzer 0 % (0-5); Platelet Count 278 K/mm3 (150-450); RBC Distribution Width CV 13.6 % (11.6-14.6); RBC Distribution Width SD 47.0 fl (35.1-43.9); Red Blood Count 4.42 M/mm3 (4.2-5.4); White Blood Count 8.9 K/mm3 (4.4-11.0)
[2025-08-26 14:35] LABS: Red Blood Cells-Urine 0-5 SEEN /hpf (0-5); Squamous Epithelial Cells - UA 0-5 SEEN /hpf (5-10)
--- OUTSIDE RECORDS SUMMARY | 2025-08-26 14:35 | XMS RPT_ITS | CCD ---
Author Organization [facility] Care Team Providers Care Candy Dipper Hand Name Role Phone Tariq Levy Unavailable Unavailable Kenneth Hong Unavailable Unavailable Kenneth Hong Unavailable Unavailable Nelida Santana Primary Care Provider [...] Primary Care Unavailable PROVIDER, UNKNOWN Referring Unavailable Berenice Zelaya Attending Unavailable PROVIDER, UNKNOWN Referring Unavailable Olga Lidia, Adarsh Attending Unavailable Nelida Santana Primary Care Unavailable Olga Lidia GRIMALDO, Adarsh Mayen Primary Care Provider Florentin JOYCE, Patt Unavailable Unavailable Florentin JOYCE, Patt Unavailable Unavailable Olga Lidia GRIMALDO, Adarsh Mayen Primary Care Provider Florentin JOYCE, Patt Unavailable Unavailable Cristy JOYCE, Sumaya Unavailable Unavailable Kotsonis, Temo F Admitting Unavailable Kotsonis, Temo F Consulting Unavailable Any Garcia Attending Unavailable Olga Lidia, Adarsh Primary Care Unavailable Walter Alston Attending Unavailable Olga Lidia, Adarsh Primary Care Unavailable Kotsonis, Temo F Admitting Unavailable Kotsonis, Temo F Attending Unavailable Olga Lidia, Adarsh Primary Care Unavailable Michael Rogers Attending Unavailable Olga Liida, Adarsh Primary Care Unavailable Olga Lidia, Adarsh Referring Unavailable Kotsonis, Temo F Attending Unavailable OLGA LIDIA, ADARSH Primary Care Unavailable OLGA LIDIA, ADARSH Referring Unavailable OLGA LIDIA, ADARSH Attending Unavailable OLGA LIDIA, ADARSH Primary Care Unavailable OLGA LIDIA, ADARSH Attending Unavailable OLGA LIDIA, ADARSH Primary Care Unavailable OLGA LIDIA, ADARSH Primary Care Unavailable ALEXANDRO NEVILLE Attending Unavailable Allergies Allergy Classification Reported Allergen(s) Allergy Type Date of Onset Reaction(s) Facility (8 sources) Phenytoin Drug Allergy 8 [facility] Work Phone: (8 sources) Sertraline Drug Allergy 7 Anxiety [facility] Work Phone: (20 sources) levoFLOXacin Drug Allergy 5 Rash [facility] Work Phone: (20 sources) Phenytoin Drug Allergy 8 Swelling [facility] Work Phone: (20 sources) Sertraline Drug Allergy 7 Other: See Comments, Anxiety, Unknown [facility] Work Phone: (1 source) levoFLOXacin Drug Allergy 5 [facility] (1 source) Phenytoin Drug Allergy 5 [facility] (1 source) Sertraline Drug Allergy 5 [facility] Medications Current Medications Medication Drug Class(es) Dates Sig (Normalized) Sig (Original) acetaminophen 325 mg / oxyCODONE hydrochloride 5 mg oral tablet (8 sources) Opioid Agonist Start: 01-24-2023 End: 01-29-2023 take 1 tablet by mouth every six hours as needed for pain oxyCODONE-acetamin ophen (Percocet) 5-325 MG tablet Indications: Closed compression fracture of L1 lumbar vertebra, initial encounter ([facility]) Take 1 tablet by mouth every 6 [...] pain 12 tablet 0 05/28/2022 05/31/2022 Active [id number] 200 actuat albuterol 0.09 mg/actuat metered dose [...] oral tablet (2 sources) Penicillin-class Antibacterial Start: take 1 tablet by mouth twice [...] Start: 09-22-2024 take 1 tablet by cori twice daily as needed for anxiety clonazePAM [...] 09-17-2020 take 1 tablet by cori th twice daily clonazePAM (KLONOPIN) 2 MG tablet [...] Compression Stockings MISC (7 sources) Start: 09-15-19 Compression Stockings MISC Indications: Claudication (HCC) , [...] stockings 1 each 1 10/05/2019 Active ergocalciferol 72773 unt oral capsule (3 sources) Provitamin D2 Compound Start: take 1 capsule by mouth every week ergocalciferol (ERGOCALCIFEROL) 1.25 MG (67197 UT) capsule Take 1 capsule by mouth [...] sources) Nonsteroidal Anti-inflammatory Drug Start: 05-28-2022 End: 10-14-2022 take 1 tablet by mouth three times [...] extended release oral tablet (20 sources) beta-Adrenergic Nia Start: 05-03-2025 take 1 tablet by mouth [...] tablet (7 sources) Nitrate Vasodilator Start: 05-14-20 18 End: 01-22-20 nitroGLYCERIN (NITROSTAT) 0.4 MG SL [...] oral capsule (20 sources) Start: 03-16-20 End: 08-16-20 take 1 capsule by mouth twice daily pregabalin (Lyrica) 75 MG capsule Indications: Neuropathy Take 1 capsule (75 mg) by mouth 2 times daily. 60 capsule 07/17/2025 08/16/2025 Active Start: 01-19-2025 End: 02-18-2025 take 1 [...] mouth. rosuvastatin calcium 5 mg oral tablet (17 sources) HMG-CoA Reductase Inhibitor Start: take 1 [...] six hours as needed for pain HYDROcodone-acetaminophen (Arlee) 5-325 MG tablet Indications: Paronychia of finger [...] on above: take 1 tablet by cori three times a day for 3 days [...] 1 tablet by cori th once daily. nczjzzxfgmg-tpkfxuxju-ksd anter (TRELEGY ELLIPTA) 200-62.5-25 mcg inhalation powder (1 source) Start : 10-01 End: 01-21 zwekqnxejdn-ciogsosfw-gf lanter (TRELEGY ELLIPTA) 200-62.5-25 mcg inhalation powder [...] tablet (2 sources) Serotonin-3 Receptor Antagonist Start: End: ondansetron ODT (Zofran-ODT) disintegrating tablet 4 mg 2 ml orphenadrine citrate 30 mg/ml injection (1 source) Muscle Relaxant Start: End: orphenadrine (NORFLEX) injection 60 mg sulfamethoxazole 800 mg / trimethoprim 160 mg oral tablet (4 sources) Dihydrofolate Reductase Inhibitor Antibacterial, Sulfonamide Antimicrobial Start: 025 End: take 1 tablet by mouth once 1 [...] pulmonary disease and bronchiectasis Onset: 08-12-2022 08-12-2022 Conditions associated with dizziness or vertigo (10 sources) Lightheadedness; Translations: [Dizziness and giddiness] Episodic Coronary atherosclerosis and other heart disease (20 sources) Atherosclerotic heart disease of [place] coronary artery without angina pectoris; Translations: [Chronic [...] Onset: 01-06-2017 05-10-2018 Chronic Nausea and vomiting (8 sources) Nausea; Translations: [Nausea] Episodic Nonspecific chest pain (15 sources) Chest pain; Translations: [Chest pain, unspecified] Onset: 07-18-2025 Episodic Nutritional deficiencies (2 sources) Vitamin D deficiency; Translations: [Vitamin D deficiency] Chronic Nutritional deficiencies (1 source) Cobalamin deficiency; Translations: [B12 deficiency] Episodic Osteoarthritis (20 sources) Arthritis; Translations: [Unspecified osteoarthritis, unspecified site] Onset: 12-23-2023 12-23-2023 Chronic Osteoporosis (20 sources) Senile osteoporosis; Translations: [Age-related osteoporosis without current pathological fracture] Onset: 09-04-2017 09-04-2017 Chronic Other aftercare (2 sources) termite control servicer (current) use of aspirin; Translations: [shelter (current) use of aspirin] Onset: 05-08-2018 Episodic Other aftercare (2 sources) Other terminal block assembler (current) drug therapy; Translations: [Other terminal block assembler (current) drug therapy] Onset: 05-28-2022 Episodic Other aftercare (2 sources) shelter (current) use of anticoagulants; Translations: [termite control servicer (current) use of anticoagulants] Onset: 05-28-2022 Episodic Other aftercare (1 source) Prescribed medication regimen behavior finding; Translations: [Other terminal block assembler (current) drug therapy] 03-02-2023 Episodic Other and [...] Other hereditary and degenerative nervous system conditions (2 sources) Myoclonus; Translations: [Myoclonus] Onset: 05-08-2018 Chronic [...] Translations: [Pain in left hip] Episodic Other screening for suspected conditions (not mental disorders or infectious disease) (8 sources) Creatinine level - finding; Translations: [Other specified abnormal findings of blood chemistry] Episodic Other upper respiratory infections (1 source) [...] sources) Palpitations; Translations: [Palpitations] Onset: 09-18-2021 Episodic Coronary atherosclerosis and other heart disease (3 sources) Presence of coronary angioplasty implant and [...] current use of drug therapy; Translations: [Other terminal block assembler (current) drug therapy] Onset: 08-28-2021 Episodic Other aftercare (5 sources) Long-term current use of anticoagulant; Translations: [termite control servicer (current) use of anticoagulants] Onset: 08-28-2021 Episodic [...] 09-18-2021 01-21-2022 Episodic Other connective tissue disease (15 sources) Ganglion cyst of left wrist; Translations: [...] proteins] Onset: 02-06-2022 Episodic Other hematologic conditions (2 sources) Other specified abnormalities of plasma proteins; [...] [Chronic cough] Onset: 12-30-2022 12-30-2022 Episodic Other skin disorders (20 sources) Mass of neck; Translations: [Localized swelling, mass and lump, neck] Onset: 12-23-2023 4 Episodic Residual codes; unclassified (3 sources) Postoperative [...] states] Onset: 02-03-2022 Episodic Residual codes; unclassified (5 sources) Postoperative [...] Test Name Value Interpretation Reference Range Facility 12 Lead EKGon 07-23-2025 12 Lead EKG [facility] Cardiovascular Services [address] [place] [address] 12 Lead EKG 07/23/25 1102 MR#: [id number] Acct: [id number] Name: CHRISTY MOISE Rep #: [id number] : [id number] 75 From: Hilario Durbin MD Attending Dr: Status: DEP ER Ordering Dr: Walter Alston MD Date: 07/23/25 Location: ED Sex: F C Admitted: Test Reason : SOB Blood Pressure : */* mmHG Vent. Rate : 97 BPM Atrial Rate : 97 BPM P-R Int : 148 ms QRS Dur : 84 ms QT Int : 432 ms P-R-T Axes : 57 53 67 degrees QTcB Int : 548 ms Normal sinus rhythm Possible Left atrial enlargement Nonspecific ST and T wave abnormality Prolonged QT Abnormal ECG Confirmed by Hilario Durbin ([id number]), greeting card editor JULIUS DE LA ROSA ([id number]) on 07/24/2025 10:26:13 AM Referred By: BB/DH Confirmed By: Hilario Durbin 07/24/25 1026 Date Hilario Durbin MD CC: Dr. Walter Alston MD; Dr. Adarsh Duggan MD Signed Normal [facility] Basic Metabolic Profile (BMP )on 07-23-2025 BUN Normal 4-19 [facility] Comment on above: Result Comment: DUPL ICATE Performed By: #### L 100.0100, L500.2500 #### [facility] [address] [place], [address] BUN/CRE Normal 10-20 [facility] Comment on above: Result Comment: DUPL ICATE Performed By: #### L 100.0100, L500.2500 #### [facility] [address] [place], [address] Calcium Normal 7.6-11.0 [facility] Comment on above: Result Comment: DUPL ICATE Performed By: #### L 100.0100, L500.2500 #### [facility] [address] [place], [address] CL Normal 98-108 [facility] Comment on above: Result Comment: DUPL ICATE Performed By: #### L 100.0100, L500.2500 #### [facility] [address] [place], [address] CO2 Normal 21.0-32.0 [facility] Comment on above: Result Comment: DUPL ICATE Performed By: #### L 100.0100, L500.2500 #### [facility] [address] [place], [address] CREAT,SERUM Normal 0.70-1.20 [facility] Comment on above: Result Comment: DUPL ICATE Performed By: #### L 100.0100, L500.2500 #### [facility] [address] [place], [address] eGFR Normal >60 [facility] Comment on above: Result Comment: DUPL ICATE Performed By: #### L 100.0100, L500.2500 #### [facility] [address] [place], [address] GAP Normal 5-15 [facility] Comment on above: Result Comment: DUPL ICATE Performed By: #### L 100.0100, L500.2500 #### [facility] [address] [place], [address] GLU Normal 70-99 [facility] Comment on above: Result Comment: DUPL ICATE Performed By: #### L 100.0100, L500.2500 #### [facility] [address] [place], [address] Potassium Normal 3.3-5.1 [facility] Comment on above: Result Comment: DUPL ICATE Performed By: #### L 100.0100, L500.2500 #### [facility] [address] [place], [address] Basic Metabolic Profile (BMP) Normal 133-145 [facility] Comment on above: Result Comment: DUPL ICATE Performed By: #### L 100.0100, L500.2500 #### [facility] [address] [place], [address] BUN/CRE 9.0 RATIO Low 10-20 [facility] Comment on above: Performed By: #### L 100.0100, L500.2500 #### [facility] [address] [place], [address] Calcium [Mass/Vol] 9.0 mg/dL Normal 7.6-11.0 [facility] Comment on above: Performed By: #### L 100.0100, L500.2500 #### [facility] [address] [place], [address] Chloride [Moles/Vol] 103 mmol/L Normal 98-108 [facility] Comment on above: Performed By: #### L 100.0100, L500.2500 #### [facility] [address] [place], [address] CO2 [Moles/Vol] 23.4 mmol/L Normal 21.0-32.0 [facility] Comment on above: Performed By: #### L 100.0100, L500.2500 #### [facility] [address] [place], [address] Creatinine [Mass/Vol] 1.01 mg/dL Normal 0.70-1.20 [facility] Comment on above: Performed By: #### L 100.0100, L500.2500 #### [facility] [address] [place], [address] ECRCL 42.82 ml/min Low 50-250 [facility] Comment on above: Performed By: #### L 100.0100, L500.2500 #### [facility] [address] [place], [address] GAP 13 Normal 5-15 [facility] Comment on above: Performed By: #### L 100.0100, L500.2500 #### [facility] [address] [place], [address] GFR/1.73 sq M.predicted among non-blacks MDRD (S/P/Bld) [Vol rate/Area] 58 mL/min/{1.73_m2} Low >60 [facility] Comment on above: Result Comment: mL/m in/1.73m2 CKD-EPI Creatinine Equation (2020) Performed By: #### L 100.0100, L500.2500 #### [facility] [address] [place], [address] Glucose [Mass/Vol] 129 mg/dL High 70-99 [facility] Comment on above: Performed By: #### L 100.0100, L500.2500 #### [facility] [address] [place], [address] Potassium [Moles/Vol] 3.8 mmol/L Normal 3.3-5.1 [facility] Comment on above: Performed By: #### L 100.0100, L500.2500 #### [facility] [address] [place], [address] Sodium [Moles/Vol] 139 mmol/L Normal 133-145 [facility] Comment on above: Performed By: #### L 100.0100, L500.2500 #### [facility] [address] [place], [address] Urea nitrogen [Mass/Vol] 9 mg/dL Normal 4-19 [facility] Comment on above: Performed By: #### L 100.0100, L500.2500 #### [facility] [address] [place], [address] CBC W/Diff, Automatedon 11-0 -2024 Absolute Neut Normal 2.0-7.7 [facility] Comment on above: Result Comment: DUPL ICATE Performed By: #### L 100.0100, L500.2500 #### [facility] [address] [place], [address] HCT Normal 37-47 [facility] Comment on above: Result Comment: DUPL ICATE Performed By: #### L 100.0100, L500.2500 #### [facility] [address] [place], [address] HGB Normal 12.0-15.0 [facility] Comment on above: Result Comment: DUPL ICATE Performed By: #### L 100.0100, L500.2500 #### [facility] [address] [place], [address] MCH Normal 27.0-32.0 [facility] Comment on above: Result Comment: DUPL ICATE Performed By: #### L 100.0100, L500.2500 #### [facility] [address] [place], [address] MCHC Normal 32-36 [facility] Comment on above: Result Comment: DUPL ICATE Performed By: #### L 100.0100, L500.2500 #### [facility] [address] [place], [address] MCV Normal 81-99 [facility] Comment on above: Result Comment: DUPL ICATE Performed By: #### L 100.0100, L500.2500 #### [facility] [address] [place], [address] NEUT% Normal 47-70 [facility] Comment on above: Result Comment: DUPL ICATE Performed By: #### L 100.0100, L500.2500 #### [facility] [address] [place], [address] PLT Normal 150-450 [facility] Comment on above: Result Comment: DUPL ICATE Performed By: #### L 100.0100, L500.2500 #### [facility] [address] [place], [address] RBC Normal 4.2-5.4 [facility] Comment on above: Result Comment: DUPL ICATE Performed By: #### L 100.0100, L500.2500 #### [facility] [address] [place], [address] RDW CV Normal 11.6-14.6 [facility] Comment on above: Result Comment: DUPL ICATE Performed By: #### L 100.0100, L500.2500 #### [facility] [address] [place], [address] RDW SD Normal 35.1-43.9 [facility] Comment on above: Result Comment: DUPL ICATE Performed By: #### L 100.0100, L500.2500 #### [facility] [address] [place], [address] WBC Normal 4.4-11.0 [facility] Comment on above: Result Comment: DUPL ICATE Performed By: #### L 100.0100, L500.2500 #### [facility] [address] [place], [address] Absolute Lymph 0.66 X10 3/uL Low 0.83-4.51 [facility] Comment on above: Performed By: #### L 100.0100, L500.2500 #### [facility] [address] [place], [address] Absolute Neut 4.3 X10 3/uL Normal 2.0-7.7 [facility] Comment on above: Performed By: #### L 100.0100, L500.2500 #### [facility] [address] [place], [address] Basophils/100 WBC (Bld) 0.5 % Normal 0-1 [facility] Comment on above: Performed By: #### L 100.0100, L500.2500 #### [facility] [address] [place], [address] Eosinophils/100 WBC (Bld) 2.0 % Normal 0-5 [facility] Comment on above: Performed By: #### L 100.0100, L500.2500 #### [facility] [address] [place], [address] Erythrocyte distribution width (RBC) [Ratio] 13.6 % Normal 11.6-14.6 [facility] Comment on above: Performed By: #### L 100.0100, L500.2500 #### [facility] [address] [place], [address] Hematocrit (Bld) [Volume fraction] 41.6 % Normal 37-47 [facility] Comment on above: Performed By: #### L 100.0100, L500.2500 #### [facility] [address] [place], [address] Hemoglobin (Bld) [Mass/Vol] 13.2 g/dL Normal 12.0-15.0 [facility] Comment on above: Performed By: #### L 100.0100, L500.2500 #### [facility] [address] [place], [address] IG% 0.400 Normal 0.0-0.9 [facility] Comment on above: Result Comment: IG% - Immature Granulocytes (promyelocytes, myelocytes and metamyelocytes) > 1% indicates that a LEFT SHIFT is Present. Performed By: #### L 100.0100, L500.2500 #### [facility] [address] [place], [address] Lymphocytes/100 WBC (Bld) 11.8 % Low 19-41 [facility] Comment on above: Performed By: #### L 100.0100, L500.2500 #### [facility] [address] [place], [address] MCH (RBC) [Entitic mass] 30.4 pg Normal 27.0-32.0 [facility] Comment on above: Performed By: #### L 100.0100, L500.2500 #### [facility] [address] [place], [address] MCHC (RBC) [Mass/Vol] 31.7 g/dL Low 32-36 [facility] Comment on above: Performed By: #### L 100.0100, L500.2500 #### [facility] [address] [place], [address] MCV (RBC) [Entitic vol] 95.9 fL Normal 81-99 [facility] Comment on above: Performed By: #### L 100.0100, L500.2500 #### [facility] [address] [place], [address] Monocytes/100 WBC (Bld) 9.0 % Normal 0-10 [facility] Comment on above: Performed By: #### L 100.0100, L500.2500 #### [facility] [address] [place], [address] Neutrophils/100 WBC (Bld) 76.3 % High 47-70 [facility] Comment on above: Performed By: #### L 100.0100, L500.2500 #### [facility] [address] [place], [address] Nucleated RBC (Bld) [#/Vol] 0 10*3/uL Normal 0-5 [facility] Comment on above: Performed By: #### L 100.0100, L500.2500 #### [facility] [address] [place], [address] Platelet mean volume (Bld) [Entitic vol] 9.8 fL Normal 6.2-12.0 [facility] Comment on above: Performed By: #### L 100.0100, L500.2500 #### [facility] [address] [place], [address] Platelets (Bld) [#/Vol] 268 10*3/uL Normal 150-450 [facility] Comment on above: Performed By: #### L 100.0100, L500.2500 #### [facility] [address] [place], [address] RBC (Bld) [#/Vol] 4.34 10*6/uL Normal 4.2-5.4 [facility] Comment on above: Performed By: #### L 100.0100, L500.2500 #### [facility] [address] [place], [address] RDW SD 48.2 fl High 35.1-43.9 [facility] Comment on above: Performed By: #### L 100.0100, L500.2500 #### [facility] [address] [place], [address] WBC (Bld) [#/Vol] 5.6 10*3/uL Normal 4.4-11.0 [facility] Comment on above: Performed By: #### L 100.0100, L500.2500 #### [facility] [address] [place], [address] Chest 1 View (Portable)on Chest 1 View (Portable) [facility] Imaging Services [address] [place] [address] Chest 1 View (Portable) MR#: [id number] Acct: [id number] Name: CHRISTY MOISE Rep #: [id number] : 1950 F 75 From: Ce Gutierrez MD PCP: Dr. Adarsh Duggan MD Status: REG ER Study: Chest 1 View (Portable) Date of Exam: 07/23/25 Exam# [id number] Ordering Dr: Walter Alston MD PROCEDURE: CHEST 1 VIEW (PORTABLE) 07/23/2025 REASON FOR EXAM: SOB for months. TECHNIQUE: Frontal view of the chest. COMPARISON: 07/10/2025 FINDINGS: LUNGS AND PLEURA: Peribronchiolar thickening noted bilaterally. Mild interstitial coarsening bilaterally. Small opacity in the region of the lingula. No pleural effusion or pneumothorax. HEART AND MEDIASTINUM: The cardiac silhouette is enlarged. The mediastinal contour is normal. BONES: No acute osseous abnormality. RAD/Chest 1 View (Portable) IMPRESSION: 1. Bilateral peribronchiolar thickening, can be seen with interstitial edema or small airways disease. 2. Small opacity in the lingula, likely atelectasis or infiltrate. Reading Location: [id number] CC: Dr. Walter Alston MD; Dr. Adarsh Duggan MD Supervisor Tree Trimming: Signed Normal [facility] Emergency Department Summary on 07-23-2025 Emergency Department Summary [facility] Medical Records Department [address] [place] [address] Emergency Department Summary 07/23/25 MR#: [id number] Acct: [id number] Name: CHRISTY MOISE Rep #: [id number] : 1950 75 From: Walter Alston MD PCP: Dr. Adarsh Duggan MD Status:REG ER Location: ED HPI History of Present Illness Chief Complaint: Shortness of Breath Informant: patient and family Narrative Narrative: Patient is a 75-year-old female with a history of COPD and AFib presenting with dyspnea, wheezing, and bilateral lower extremity edema. - Reports worsening dyspnea since yesterday, describing it as feeling smothered. - Unable to sleep or lie down last night due to dyspnea; experiences orthopnea, stating she is okay sitting up but becomes dyspneic when lying down. - Recent hospitalization for similar symptoms; diagnosed with stage 3 COPD. - Prescribed an inhaler and completed a course of antibiotics about a week ago; did not take prescribed prednisone due to side effects. - Reports increased wheezing and cough with sputum production; denies hemoptysis. - Denies chest pain, fever, abdominal pain, or emesis. - Not on home oxygen. - Noted bilateral lower extremity edema starting last night, had this couple weeks ago in the hospital but was better until yesterday. - Denies history of blood clots; previously on Eliquis for AFib. - Continues to smoke, though less recently. Grandson estimates prior to the last couple days, 2 packs/day. [facility] Medical History History of ST elevation myocardial infarction (STEMI) (05/08/18) Paroxysmal atrial fibrillation Depression Essential hypertension Left atrial enlargement Secondary pulmonary hypertension Thyroid nodule GERD (gastroesophageal reflux disease) Atherosclerotic heart disease of [place] coronary artery without angina pectoris Anemia Sigmoid diverticulitis Hyperlipidemia COPD (chronic obstructive pulmonary disease) Atrial fibrillation with RVR (02/06/22) Irritable bowel Tobacco abuse Myoclonic disorder Home Medications ???Medication ???Instructions ???Recorded ???Last Taken ???Type albuterol sulfate 90 mcg/actuation 2 puff inhalation Q4H PRN PRN So b 08/06/21 07/08/25 Rx aerosol inhaler /Or Wheezing #8.5 grams clonazepam 2 mg tablet 2 mg PO BID PRN Anxiety 12/18/21 1 History budesonide 90 mcg/actuation breath 1 inh inhalation BID #1 ea 07/10 Unknown Rx activated powder inhaler (Pulmicort Flexhaler) furosemide 20 mg tablet 20 mg PO DAILY #30 tabs 07/10/25 U nknown Rx Held on 07/23/25. Instructions: until finished with twice daily lasix metoprolol succinate 100 mg 100 mg PO DAILY 07/10/25 07/09/25 History tablet,extended release 24 hr pregabalin 75 mg capsule 75 mg PO BID swelling 07/10/25 History rosuvastatin 5 mg tablet 5 mg PO DAILY 07/10/25 07/07/25 Hi story doxycycline monohydrate 25 mg/5 mL 100 mg (20 mL) PO BID 7 days #28 0 07/23/25 Unknown Rx oral suspension mL furosemide 20 mg tablet (Lasix) 20 mg PO BID PRN edema #30 tabs Unknown Rx Allergy/AdvReac Type Severity Reaction Status Date / Time levofloxacin (From Levaquin) Allergy Rash Verified 07/23/25 10:51 phenytoin (From Dilantin) Allergy Swelling Verified 07/23/25 10:51 sertraline AdvReac Intermediate anxiety Verified 07/23/25 10:51 Family History Mother Hypertension CVA (cerebral vascular accident) CAD (coronary artery disease) Father Colon cancer Leukemia Throat cancer Surgical History History of cardioversion (06/2021) History of radiofrequency ablation procedure for cardiac arrhythmia (02/03/22) History of coronary artery stent placement (05/08/18) History of thyroidectomy History of breast lump removal History of left heart catheterization (01/21/15) History of lobectomy of thyroid History of total abdominal hysterectomy Social History housing: house number of children: 1 Smoking Status: Heavy Smoker (>10/day) Tobacco: How many years used: 50 alcohol intake: never substance use type: does not use ROS ROS ED Constitutional Constitutional ED: Denies chills or fever(s) Eyes Eyes: Denies change in vision or diplopia ENT ENT ED: Denies rhinorrhea or sore throat Cardiovascular Cardiovascular: Reports leg edema and orthopnea; Denies chest pain or palpitations Respiratory/Chest Respiratory/Chest: Reports cough, dyspnea, dyspnea on exertion, orthopnea and sputum Gastrointestinal Gastrointestinal: Denies abdominal pain, diarrhea, nausea or vomiting Genitourinary Genitourinary ED: Denies dysuria or hematur (more content not included)... Normal [facility] L501.4021on 07-23-2025 Trop T High Sen 28 ng/L High <=14 [facility] Comment on above: Performed By: #### L 100.0100, L500.2500 #### [facility] [address] [place], [address] Pro- Brain NATRIURETIC PEPTI Kevon 07-23-2025 Natriuretic peptide B (Bld) [Mass/Vol] 9531 pg/mL High <=900 [facility] Comment on above: Result Comment: Hear t Failure Unlikely: < 300 pg/mL Heart Failure Likely < 50 Years: > 450 pg/mL 50-75 Years: > 900 pg/mL >75 Years: > 1800 pg/mL Performed By: #### L 100.0100, L500.2500 #### [facility] [address] [place], [address] Troponin T HS 2 HRon 025 Trop T High Sen 30 ng/L High <=14 [facility] Comment on above: Result Comment: Hemo lysis present, Results??could be affected. ?? Performed By: #### L 499.0042 #### [facility] [address] [place], [address] Troponin T HS 4 HRon 025 Trop T High Sen Normal <=14 [facility] Comment on above: Result Comment: [facility]LA ENT DISCHARGED Performed By: #### L 100.0100, L500.2500 #### [facility] [address] [place], [address] 36on 07-17-2025 36 Reviewed chart. Refi ll appropriate. RX sent. [facility] 36 CSMA 04/13/[address] [facility] 36on 07-14-2025 36 S: Patient spoke wit h [facility] nurse regarding Lyrica refill. B: Onset of symptoms CANDACE 01/25/25. A: Requesting refill on Lyrica 75 mg. Allergies and pharmacy confirmed. R: Advised a message will be sent to the office for provider review during normal office hours. Instructed no controled substances are refilled after hours. No further needs at this time. Reason for Disposition ? Caller requesting a CONTROLLED substance prescription refill (e.g., narcotics, ADHD medicines) Protocols used: [facility] 36 Medication name: clonazePAM (KlonoPIN) 2 MG [...] Dr. Duggan Date of last office visit: 01/25/2025 Date of next office visit: 08/02/2025 Date of last refill: (see medication tab): 07/03/2025 Updated/Validated preferred pharmacy: Yes Patient instructed to contact the pharmacy prior to picking up the medication: No [facility] Basic Metabolic Profile (BMP )on 07-11-2025 BUN Normal 4-19 [facility] Comment on above: Result Comment: Canc elled via OM: Order cancelled - Patient discharged Performed By: #### L 100.0100, L500.2500 #### [facility] [address] [place], [address] BUN/CRE Normal 10-20 [facility] Comment on above: Result Comment: Canc elled via OM: Order cancelled - Patient discharged Performed By: #### L 100.0100, L500.2500 #### [facility] [address] [place], [address] Calcium Normal 7.6-11.0 [facility] Comment on above: Result Comment: Canc elled via OM: Order cancelled - Patient discharged Performed By: #### L 100.0100, L500.2500 #### [facility] [address] [place], [address] CL Normal 98-108 [facility] Comment on above: Result Comment: Canc elled via OM: Order cancelled - Patient discharged Performed By: #### L 100.0100, L500.2500 #### [facility] [address] [place], [address] CO2 Normal 21.0-32.0 [facility] Comment on above: Result Comment: Canc elled via OM: Order cancelled - Patient discharged Performed By: #### L 100.0100, L500.2500 #### [facility] [address] [place], [address] CREAT,SERUM Normal 0.70-1.20 [facility] Comment on above: Result Comment: Canc elled via OM: Order cancelled - Patient discharged Performed By: #### L 100.0100, L500.2500 #### [facility] [address] [place], [address] eGFR Normal >60 [facility] Comment on above: Result Comment: Canc elled via OM: Order cancelled - Patient discharged Performed By: #### L 100.0100, L500.2500 #### [facility] [address] [place], [address] GAP Normal 5-15 [facility] Comment on above: Result Comment: Canc elled via OM: Order cancelled - Patient discharged Performed By: #### L 100.0100, L500.2500 #### [facility] [address] [place], [address] GLU Normal 70-99 [facility] Comment on above: Result Comment: Canc elled via OM: Order cancelled - Patient discharged Performed By: #### L 100.0100, L500.2500 #### [facility] [address] [place], [address] Potassium Normal 3.3-5.1 [facility] Comment on above: Result Comment: Canc elled via OM: Order cancelled - Patient discharged Performed By: #### L 100.0100, L500.2500 #### [facility] [address] [place], [address] Basic Metabolic Profile (BMP) Normal 133-145 [facility] Comment on above: Result Comment: Canc elled via OM: Order cancelled - Patient discharged Performed By: #### L 100.0100, L500.2500 #### [facility] [address] [place], [address] CBC W/Diff, Automatedon 10-2 Absolute Neut Normal 2.0-7.7 [facility] Comment on above: Result Comment: Canc elled via OM: Order cancelled - Patient discharged Performed By: #### L 100.0100, L500.2500 #### [facility] [address] [place], [address] HCT Normal 37-47 [facility] Comment on above: Result Comment: Canc elled via OM: Order cancelled - Patient discharged Performed By: #### L 100.0100, L500.2500 #### [facility] [address] [place], [address] HGB Normal 12.0-15.0 [facility] Comment on above: Result Comment: Canc elled via OM: Order cancelled - Patient discharged Performed By: #### L 100.0100, L500.2500 #### [facility] [address] [place], [address] MCH Normal 27.0-32.0 [facility] Comment on above: Result Comment: Canc elled via OM: Order cancelled - Patient discharged Performed By: #### L 100.0100, L500.2500 #### [facility] [address] [place], [address] MCHC Normal 32-36 [facility] Comment on above: Result Comment: Canc elled via OM: Order cancelled - Patient discharged Performed By: #### L 100.0100, L500.2500 #### [facility] [address] [place], [address] MCV Normal 81-99 [facility] Comment on above: Result Comment: Canc elled via OM: Order cancelled - Patient discharged Performed By: #### L 100.0100, L500.2500 #### [facility] [address] [place], [address] NEUT% Normal 47-70 [facility] Comment on above: Result Comment: Canc elled via OM: Order cancelled - Patient discharged Performed By: #### L 100.0100, L500.2500 #### [facility] [address] [place], [address] PLT Normal 150-450 [facility] Comment on above: Result Comment: Canc elled via OM: Order cancelled - Patient discharged Performed By: #### L 100.0100, L500.2500 #### [facility] [address] [place], [address] RBC Normal 4.2-5.4 [facility] Comment on above: Result Comment: Canc elled via OM: Order cancelled - Patient discharged Performed By: #### L 100.0100, L500.2500 #### [facility] [address] [place], [address] RDW CV Normal 11.6-14.6 [facility] Comment on above: Result Comment: Canc elled via OM: Order cancelled - Patient discharged Performed By: #### L 100.0100, L500.2500 #### [facility] [address] [place], [address] RDW SD Normal 35.1-43.9 [facility] Comment on above: Result Comment: Canc elled via OM: Order cancelled - Patient discharged Performed By: #### L 100.0100, L500.2500 #### [facility] [address] [place], [address] WBC Normal 4.4-11.0 [facility] Comment on above: Result Comment: Canc elled via OM: Order cancelled - Patient discharged Performed By: #### L 100.0100, L500.2500 #### [facility] [address] [place], [address] CBC W/Diff, Automatedon 10-2 -2024 Absolute Lymph 0.95 X10 3/uL Normal 0.83-4.51 [facility] Comment on above: Performed By: #### L 501.2450, L500.4050, L100.0100 #### [facility] [address] [place], [address] Absolute Neut 7.8 X10 3/uL High 2.0-7.7 [facility] Comment on above: Performed By: #### L 501.2450, L500.4050, L100.0100 #### [facility] [address] [place], [address] Basophils/100 WBC (Bld) 0.6 % Normal 0-1 [facility] Comment on above: Performed By: #### L 501.2450, L500.4050, L100.0100 #### [facility] [address] [place], [address] Eosinophils/100 WBC (Bld) 1.5 % Normal 0-5 [facility] Comment on above: Performed By: #### L 501.2450, L500.4050, L100.0100 #### [facility] [address] [place], [address] Erythrocyte distribution width (RBC) [Ratio] 13.8 % Normal 11.6-14.6 [facility] Comment on above: Performed By: #### L 501.2450, L500.4050, L100.0100 #### [facility] [address] [place], [address] Hematocrit (Bld) [Volume fraction] 41.3 % Normal 37-47 [facility] Comment on above: Performed By: #### L 501.2450, L500.4050, L100.0100 #### [facility] [address] [place], [address] Hemoglobin (Bld) [Mass/Vol] 12.9 g/dL Normal 12.0-15.0 [facility] Comment on above: Performed By: #### L 501.2450, L500.4050, L100.0100 #### [facility] [address] [place], [address] IG% 0.300 Normal 0.0-0.9 [facility] Comment on above: Result Comment: IG% - Immature Granulocytes (promyelocytes, myelocytes and metamyelocytes) > 1% indicates that a LEFT SHIFT is Present. Performed By: #### L 501.2450, L500.4050, L100.0100 #### [facility] [address] [place], [address] Lymphocytes/100 WBC (Bld) 9.9 % Low 19-41 [facility] Comment on above: Performed By: #### L 501.2450, L500.4050, L100.0100 #### [facility] [address] [place], [address] MCH (RBC) [Entitic mass] 30.4 pg Normal 27.0-32.0 [facility] Comment on above: Performed By: #### L 501.2450, L500.4050, L100.0100 #### [facility] [address] [place], [address] MCHC (RBC) [Mass/Vol] 31.2 g/dL Low 32-36 [facility] Comment on above: Performed By: #### L 501.2450, L500.4050, L100.0100 #### [facility] [address] [place], [address] MCV (RBC) [Entitic vol] 97.2 fL Normal 81-99 [facility] Comment on above: Performed By: #### L 501.2450, L500.4050, L100.0100 #### [facility] [address] [place], [address] Monocytes/100 WBC (Bld) 7.1 % Normal 0-10 [facility] Comment on above: Performed By: #### L 501.2450, L500.4050, L100.0100 #### [facility] [address] [place], [address] Neutrophils/100 WBC (Bld) 80.6 % High 47-70 [facility] Comment on above: Performed By: #### L 501.2450, L500.4050, L100.0100 #### [facility] [address] [place], [address] Nucleated RBC (Bld) [#/Vol] 0 10*3/uL Normal 0-5 [facility] Comment on above: Performed By: #### L 501.2450, L500.4050, L100.0100 #### [facility] [address] [place], [address] Platelet mean volume (Bld) [Entitic vol] 10.1 fL Normal 6.2-12.0 [facility] Comment on above: Performed By: #### L 501.2450, L500.4050, L100.0100 #### [facility] [address] [place], [address] Platelets (Bld) [#/Vol] 326 10*3/uL Normal 150-450 [facility] Comment on above: Performed By: #### L 501.2450, L500.4050, L100.0100 #### [facility] [address] [place], [address] RBC (Bld) [#/Vol] 4.25 10*6/uL Normal 4.2-5.4 [facility] Comment on above: Performed By: #### L 501.2450, L500.4050, L100.0100 #### [facility] [address] [place], [address] RDW SD 49.4 fl High 35.1-43.9 [facility] Comment on above: Performed By: #### L 501.2450, L500.4050, L100.0100 #### [facility] [address] [place], [address] WBC (Bld) [#/Vol] 9.6 10*3/uL Normal 4.4-11.0 [facility] Comment on above: Performed By: #### L 501.2450, L500.4050, L100.0100 #### [facility] [address] [place], [address] Chest PA and Lateralon 07-10 Chest PA and Lateral [facility] Imaging Services [address] [place], [place] [address] Chest PA and Lateral MR#: [id number] Acct: [id number] Name: CHRISTY MOISE Rep #: [id number] : 1950 F 74 From: Breanna steward MD PCP: Dr. Adarsh Duggan MD Status: REG ER Study: Chest PA and Lateral Date of Exam: 07/10/25 Exam# [id number] Ordering Dr: Helena Louie DO PROCEDURE: CHEST PA AND LATERAL 07/10/2025 REASON FOR EXAM: CHEST PAIN TECHNIQUE: Procedure Code: RADCXR Modality: DX Procedure: CHEST PA AND LATERAL COMPARISON: None. FINDINGS: The lungs are emphysematous. Bilateral blunting of the costophrenic angles, probably adhesions. Bilateral basilar atelectatic pulmonary changes/infiltrates. Enlarged cardiac silhouette. Normal mediastinum and sheron. Normal visualized pulmonary arteries. Atheromatous plaques of the visualized aortic arch and descending thoracic aorta. Diffuse spondylosis of the visualized thoracic spine. Normal visualized ribs, clavicles. Degenerative joint disease. There is no demonstrated abnormality of the visualized soft tissue structures of the upper abdomen. RAD/Chest PA and Lateral IMPRESSION: Emphysema. Bilateral blunting of the costophrenic angles, probably adhesions. Bilateral basilar atelectatic pulmonary changes/infiltrates. Enlarged cardiac silhouette. Reading Location: [place] [address] CC: Dr. Helena Louie DO; Dr. Adarsh Duggan MD Supervisor Tree Trimming: Signed Normal [facility] Comprehensive Metabolic Prof ilon 07-10-2025 Albumin [Mass/Vol] 4.1 g/dL Normal 3.4-4.8 [facility] Comment on above: Performed By: #### L 501.8970, L500.4050, L100.0100 #### [facility] [address] [place], [address] Albumin/Globulin [Mass ratio] 1.4 {ratio} Normal 0.9-2.4 [facility] Comment on above: Performed By: #### L 501.2450, L500.4050, L100.0100 #### [facility] [address] [place], [address] ALK PHOS 96 U/L Normal 35-104 [facility] Comment on above: Performed By: #### L 501.2450, L500.4050, L100.0100 #### [facility] [address] [place], [address] ALT [Catalytic activity/Vol] 36 U/L High <=34 [facility] Comment on above: Performed By: #### L 501.2450, L500.4050, L100.0100 #### [facility] [address] [place], [address] AST [Catalytic activity/Vol] 30 U/L Normal <=31 [facility] Comment on above: Performed By: #### L 501.2450, L500.4050, L100.0100 #### [facility] [address] [place], [address] Bilirubin [Mass/Vol] 0.58 mg/dL Normal 0.00-1.30 [facility] Comment on above: Performed By: #### L 501.2450, L500.4050, L100.0100 #### [facility] [address] [place], [address] BUN/CRE 16.9 RATIO Normal 10-20 [facility] Comment on above: Performed By: #### L 501.2450, L500.4050, L100.0100 #### [facility] [address] [place], [address] Calcium [Mass/Vol] 9.2 mg/dL Normal 7.6-11.0 [facility] Comment on above: Performed By: #### L 501.2450, L500.4050, L100.0100 #### [facility] [address] [place], [address] Chloride [Moles/Vol] 104 mmol/L Normal 98-108 [facility] Comment on above: Performed By: #### L 501.2450, L500.4050, L100.0100 #### [facility] [address] [place], [address] CO2 [Moles/Vol] 25.8 mmol/L Normal 21.0-32.0 [facility] Comment on above: Performed By: #### L 501.2450, L500.4050, L100.0100 #### [facility] [address] [place], [address] Creatinine [Mass/Vol] 0.94 mg/dL Normal 0.70-1.20 [facility] Comment on above: Performed By: #### L 501.2450, L500.4050, L100.0100 #### [facility] [address] [place], [address] ECRCL 47.46 ml/min Low 50-250 [facility] Comment on above: Performed By: #### L 501.2450, L500.4050, L100.0100 #### [facility] [address] [place], [address] GAP 11 Normal 5-15 [facility] Comment on above: Performed By: #### L 501.2450, L500.4050, L100.0100 #### [facility] [address] [place], [address] GFR/1.73 sq M.predicted among non-blacks MDRD (S/P/Bld) [Vol rate/Area] 64 mL/min/{1.73_m2} Normal >60 [facility] Comment on above: Result Comment: mL/m in/1.73m2 CKD-EPI Creatinine Equation (2020) Performed By: #### L 501.2450, L500.4050, L100.0100 #### [facility] [address] [place], [address] Globulin (S) [Mass/Vol] 3.1 g/dL Normal 2.2-4.2 [facility] Comment on above: Performed By: #### L 501.2450, L500.4050, L100.0100 #### [facility] [address] [place], [address] Glucose [Mass/Vol] 137 mg/dL High 70-99 [facility] Comment on above: Performed By: #### L 501.2450, L500.4050, L100.0100 #### [facility] [address] [place], [address] Potassium [Moles/Vol] 4.0 mmol/L Normal 3.3-5.1 [facility] Comment on above: Performed By: #### L 501.2450, L500.4050, L100.0100 #### [facility] [address] [place], [address] Sodium [Moles/Vol] 140 mmol/L Normal 133-145 [facility] Comment on above: Performed By: #### L 501.2450, L500.4050, L100.0100 #### [facility] [address] [place], [address] T PROT 7.2 g/dL Normal 5.9-8.4 [facility] Comment on above: Performed By: #### L 501.2450, L500.4050, L100.0100 #### [facility] [address] [place], [address] Urea nitrogen [Mass/Vol] 16 mg/dL Normal 4-19 [facility] Comment on above: Performed By: #### L 501.2450, L500.4050, L100.0100 #### [facility] [address] [place], [address] Discharge Instructionon 06-15 Discharge Instruction [facility] Medical Records Department [address] [place] [address] Instructions for Home/Discharge Instructions 07/10/25 1610 MR#: [id number] Acct: [id number] Name: CHRISTY MOISE Rep #: [id number] : 1950 74 From: Temo Rider MD PCP: Dr. Adarsh Duggan MD Status:ADM [facility] Discharge Instructions DC O2, CPAP, BIPAP needs Home O2 Discharge instructions: No Dressing / Incision Discharge Activity: Return to Normal Activity Return to work on:: 07/14/25 Dressing / Incision Call your doctor if you observe: Fever of 101 or Higher, Shortness of breath, Dizziness, Fainting spells, Swelling in the ankles, Chest pain and Increased palpitations (irregular heartbeat) Follow Up Care Test Results: Test results from this visit will be discussed in further detail at your follow-up appointment, if applicable. Discharge Plan Admission Admit Date/Time: 07/10/25 08:06 Attending Provider: Temo Rider Primary Care Provider: Adarsh Duggan Instructions Patient Instructions: Heart Failure Flare Up Signs, ED Heart Failure, Congestive (CHF), ED CHF Left Side, Heart Failure Additional Instructions / Restrictions: Follow with your primary care doctor in 3 to 5 days to obtain lab work to monitor your kidney function Discharge Orders/Prescriptions Prescriptions: New azithromycin 250 mg Tablet 500 mg PO Q24 Qty: 3 0RF furosemide 20 mg Tablet 20 mg PO DAILY Qty: 30 0RF cefdinir 300 mg Capsule 300 mg PO Q12 Qty: 10 0RF Pulmicort Flexhaler 90 mcg/actuation aerosol powdr breath activated 1 inh inhalation BID Qty: 1 0RF Continued albuterol sulfate 90 mcg/actuation HFA aerosol inhaler 2 puff inhalation Q4H PRN PRN (Reason: Sob /Or Wheezing) Qty: 8.5 0RF clonazepam 2 mg tablet 2 mg PO BID PRN (Reason: Anxiety) Patient Comments: TAKE 1 TABLET BY MOUTH TWICE DAILY IF NEEDED pregabalin 75 mg capsule 75 mg PO BID metoprolol succinate 100 mg tablet extended release 24 hr 100 mg PO DAILY rosuvastatin 5 mg tablet 5 mg PO DAILY Referrals / Follow Up: Michael Rogers DO [Med Staff - Active Staff, Pulmonary Medicine] - Within 1 Month Adarsh Duggan MD [Primary Care Provider, Family Practice] Hilario Durbin MD [Med Staff - Active Staff, Cardiology] - Within 1 Month Disposition Disposition (needs filled in before D/C Order can be placed): Home, Self Care 07/10/25 1624 Temo Rider MD CC: Dr. Adarsh Duggan MD Signed Normal [facility] Echo Completeon 07-10-2025 Echo Complete [facility] Cardiovascular Services [address] [place] [address] Echo Complete 07/10/25 1348 MR#: [id number] Acct: [id number] Name: CHRISTY MOISE Rep #: [id number] : 1950 74 From: Any Garcia MD Attending Dr: Dr. Temo Rider MD Status : ADM [facility] Ordering Dr: Temo Rider MD Date: 07/10/25 Location: PCU Sex: F C Admitted: 07/10/25 Reason For Study Reason For Study: Dyspnea/SOB Procedure This was a 2D Doppler, Color Flow transthoracic echocardiogram. Exam performed portable in patient room. Left Ventricle Mild concentric left ventricular hypertrophy. Normal LV size. The left ventricular ejection fraction is 50 %. Stage 3 diastolic dysfunction. Right Ventricle Normal right ventricle. Atria The left atrium is moderately enlarged. Normal right atrium. Patent foramen ovale. Mitral Valve Mild focal mitral valve calcification. Mild (1+) mitral valve insufficiency. Tricuspid Valve Moderate (2+) tricuspid valve insufficiency. Right ventricular systolic pressure estimated to be 63 mmHg. Aortic Valve Aortic valve sclerosis without stenosis. Mild aortic valve regurgitation. Pulmonic Valve The pulmonic valve is not well visualized. Trivial pulmonic valve insufficiency. Great Vessels Normal sized aortic root. Pericardium/Pleural No pericardial effusion. MMode/2D Measurements Calculations LVIDd: 3.8 cm IVSd: 1.2 cm Ao root diam: 3.5 cm LVIDs: 2.6 cm LVPWd: 1.3 cm RVDd: 5.0 cm FS: 31.1 % _ LAV(MOD-bp): 171.9 ml LVAd ap4: 29.5 cm2 LVAd ap2: 32.2 cm2 LAV(MOD-bp) Indexed: 106.8 ml/m2 LVLd ap4: 8.1 cm LVLd ap2: 7.7 cm LAV(MOD-sp2): 169.0 ml EDV(MOD-sp4): 86.4 ml EDV(MOD-sp2): 109.4 ml LAV(MOD-sp4): 165.9 ml EDV(sp4-el): 90.8 ml EDV(sp2-el): 113.7 ml LVAs ap4: 18.9 cm2 LVAs ap2: 21.3 cm2 LVLs ap4: 7.4 cm LVLs ap2: 7.4 cm ESV(MOD-sp4): 41.8 ml ESV(MOD-sp2): 53.0 ml ESV(sp4-el): 41.0 ml ESV(sp2-el): 52.1 ml EF(MOD-sp4): 51.6 % EF(MOD-sp2): 51.6 % EF(sp4-el): 54.8 % _ SV(MOD-sp4): 44.6 ml SV(MOD-sp2): 56.4 ml SV(sp4-el): 49.7 ml SI(MOD-sp4): 27.7 ml/m2 SI(MOD-sp2): 35.0 ml/m2 _ LA A4 area: 38.4 cm2 LA dimension(2D): 4.2 cm RA A4 area: 19.4 cm2 _ TAPSE: 2.0 cm Time Measurements MV dec time: 0.19 sec Doppler Measurements Calculations MV E max jesus: 122.2 cm/sec Lat Peak E' Jesus: 7.3 cm/sec Med Peak E' Jesus: 5.0 cm/sec MV A max jesus: 39.1 cm/sec E/E' lat: 16.8 E/E' med: 24.3 MV E/A: 3.1 _ Ao V2 max: 98.2 cm/sec LV V1 max: 86.9 cm/sec MV dec slope: 646.5 cm/sec2 Ao max P.9 mmHg LV V1 max P.0 mmHg Ao V2 mean: 65.9 cm/sec LV V1 mean P.7 mmHg Ao mean P.1 mmHg LV V1 mean: 62.2 cm/sec Ao V2 VTI: 20.7 cm LV V1 VTI: 18.3 cm AV (velocity ratio): 0.88 _ PA V2 max: 55.5 cm/sec TR max jesus: 347.1 cm/sec TR max P.2 mmHg ECHO/Echo Complete Interpretation Summary Mild concentric left ventricular hypertrophy. The left ventricular ejection fraction is 50 %. Stage 3 diastolic dysfunction. The left atrium is moderately enlarged. Mild focal mitral valve calcification. Mild (1+) mitral valve insufficiency. Moderate (2+) tricuspid valve insufficiency. Right ventricular systolic pressure estimated to be 63 mmHg. Aortic valve sclerosis without stenosis. Mild aortic valve regurgitation. Patent foramen ovale. Ordering Physician: Temo Rider Referring Physician: Adarsh Duggan Performed By: Yulissa Hassan RDCS 07/10/25 2479 Date Any Garcia MD CC: Dr. Adarsh Duggan MD; Dr. Temo Rider MD Date Dictated: 07/10/25 1348 Date Transcribed: 07/10/25 150 Supervisor Tree Trimming: Kapil [facility] Emergency Department Summary on 07-10-2025 Emergency Department Summary [facility] Medical Records Department [address] [place] [address] Emergency Department Summary 07/10/25 MR#: [id number] Acct: [id number] Name: CHRISTY MOISE Rep #: [id number] : 1950 74 From: Helena Louie DO PCP: Dr. Adarsh Duggan MD Status:[facility] ER Location: ED HPI History of Present Illness Chief Complaint: Palpitations Informant: patient and family Narrative Narrative: Patient is a 74-year-old female with history of atrial fibrillation (status post ablation), hypertension, secondary pulmonary hypertension, hyperlipidemia, tobacco use and coronary artery disease status post stent placement in 2018 presenting with burning chest discomfort. States its across the front of her chest. Has associated nausea and dry heaves. States is been on for a couple days. She is not compliant with her medications including her metoprolol because she does not like to take pills. She does smoke 2 packs cigarettes per day. Denies any change in appetite or association with eating drinking with her symptoms. Has not tried anything [id number] for her symptoms prior to coming in. States it feels like her A-fib is acting up. Does not report any acute shortness of breath or difficulty breathing. [facility] Medical History History of ST elevation myocardial infarction (STEMI) (05/08/18) Paroxysmal atrial fibrillation Depression Essential hypertension Left atrial enlargement Secondary pulmonary hypertension Thyroid nodule GERD (gastroesophageal reflux disease) Atherosclerotic heart disease of [place] coronary artery without angina pectoris Anemia Sigmoid diverticulitis Hyperlipidemia COPD (chronic obstructive pulmonary disease) Atrial fibrillation with RVR (02/06/22) Irritable bowel Tobacco abuse Myoclonic disorder Home Medications ???Medication ???Instructions ???Recorded ???Last Taken ???Type tramadol 50 mg tablet 1 tab PO BID PRN Pain 04/19/1912/03 History lisinopril 20 mg tablet 20 mg PO DAILY blood pressure 12/1412/18/21 History budesonide-formoterol HFA 160 2 puff inhalation BID copd 1 12/14/21 History mcg-4.5 mcg/actuation aerosol inhaler albuterol sulfate 90 mcg/actuation 2 puff inhalation Q4H PRN PRN So b 08/06/21 12/16/21 Rx aerosol inhaler /Or Wheezing #8.5 grams dronedarone 400 mg tablet (Multaq) 400 mg PO BID directions 1 Unknown Rx corrected: should be twice daily #60 tabs clonazepam 2 mg tablet 2 mg PO BID PRN Anxiety 12/18/21 0 12/16/21 History apixaban 5 mg tablet (Eliquis) 5 mg PO BID #180 tabs 01/03/22 Unk nown Rx aspirin 81 mg capsule 81 mg PO DAILY #90 caps 01/03/22 U nknown Rx metoprolol tartrate 100 mg tablet 100 mg PO BID 30 days #180 tabs 0 01/03/22 Unknown Rx amoxicillin 500 mg-potassium 1 tab PO BID 7 days #14 tabs 02/07 Unknown Rx clavulanate 125 mg tablet (Augmentin) hydrochlorothiazide 25 mg tablet 25 mg PO DAILY blood pressure #30 02/07/22 Unknown Rx tabs Allergy/AdvReac Type Severity Reaction Status Date / Time levofloxacin (From Levaquin) Allergy Rash Verified 05/29/22 16:59 phenytoin (From Dilantin) Allergy Swelling Verified 05/29/22 16:59 sertraline AdvReac Intermediate anxiety Verified 05/29/22 16:59 Family History Mother Hypertension CVA (cerebral vascular accident) CAD (coronary artery disease) Father Colon cancer Leukemia Throat cancer Surgical History History of cardioversion (06/2021) History of radiofrequency ablation procedure for cardiac arrhythmia (02/03/22) History of coronary artery stent placement (05/08/18) History of thyroidectomy History of breast lump removal History of left heart catheterization (10/04/14) History of lobectomy of thyroid History of total abdominal hysterectomy Social History housing: house number of children: 1 Smoking Status: Heavy Smoker (>10/day) Tobacco: How many years used: 50 alcohol intake: never substance use type: does not use ROS ROS ED Constitutional Constitutional ED: Denies chills or fever(s) Cardiovascular Cardiovascular: Reports as per HPI and chest pain Respiratory/Chest Respiratory/Chest: Reports cough; Denies dyspnea or sputum Gastrointestinal Gastrointestinal: Reports nausea; Denies abdominal pain Musculoskeletal Musculoskeletal: Denies arthralgias or myalgias Integumentary Denies rash Neurologic Neurologic: Denies weakness Hematologic/Lymphatic Hematologic/Lymphatic: Denies easy bleeding or easy bruising EXAM Physical Exam Const Vital Signs: 07/10/25 04:55 07/10/25 05:24 07/10/25 05:51 (more content not included)... Normal [facility] H AND P Exam - [facility] 07-10-2025 H&P Exam - Hospitalist [facility] Medical Records Department [address] [place] [address] H P Exam - Hospitalist 07/10/25 1610 MR#: [id number] Acct: [id number] Name: CHRISTY MOISE Rep #: [id number] : 1950 74 From: Temo Rider MD PCP: Dr. Adarsh Duggan MD Status:ADM [facility] Location: [place] [address] HPI - General General Date of Admission: 07/10/25 HPI Narrative CHRISTY MOISE, is a 74 F who presents to the hospital with chest pain and shortness of breath. She felt like there was a band around her chest when she came in to the ER. She was found to have a very elevated proBNP to 12,000 with minimally elevated troponins. Initially on presentation she was on room air but then required 2 L nasal cannula. She states that she has been having some increased shortness of breath over the last week but is also been having upper respiratory infection-like symptoms and has been using her albuterol inhaler multiple times a day. She says that she normally uses it every week but only once every couple of days. She has not seen her primary care doctor for this issue but does have an appointment scheduled with him on 07/29/2025. She also states that she has episodes of orthopnea and difficulty laying flat and gets short of breath. She does not require any oxygen at home but she still does use tobacco. PFSH Medical History History of ST elevation myocardial infarction (STEMI) (05/08/18) Paroxysmal atrial fibrillation Depression Essential hypertension Left atrial enlargement Secondary pulmonary hypertension Thyroid nodule GERD (gastroesophageal reflux disease) Atherosclerotic heart disease of [place] coronary artery without angina pectoris Anemia Sigmoid diverticulitis Hyperlipidemia COPD (chronic obstructive pulmonary disease) Atrial fibrillation with RVR (02/06/22) Irritable bowel Tobacco abuse Myoclonic disorder Home Medications ???Medication ???Instructions ???Recorded ???Last Taken ???Type albuterol sulfate 90 mcg/actuation 2 puff inhalation Q4H PRN PRN So b 08/06/21 07/08/25 Rx aerosol inhaler /Or Wheezing #8.5 grams clonazepam 2 mg tablet 2 mg PO BID PRN Anxiety 12/18/21 1 History azithromycin 250 mg tablet 500 mg (2 x 250 mg) PO Q24 #3 tabs 07/10/25 Unknown Rx budesonide 90 mcg/actuation breath 1 inh inhalation BID #1 ea 07/10 Unknown Rx activated powder inhaler (Pulmicort Flexhaler) cefdinir 300 mg capsule 300 mg PO Q12 #10 caps 07/10/25 Un known Rx furosemide 20 mg tablet 20 mg PO DAILY #30 tabs 07/10/25 U nknown Rx metoprolol succinate 100 mg 100 mg PO DAILY 07/10/25 07/09/25 History tablet,extended release 24 hr pregabalin 75 mg capsule 75 mg PO BID swelling 07/10/25 History rosuvastatin 5 mg tablet 5 mg PO DAILY 07/10/25 07/07/25 Hi story Allergy/AdvReac Type Severity Reaction Status Date / Time levofloxacin (From Levaquin) Allergy Rash Verified 05/29/22 16:59 phenytoin (From Dilantin) Allergy Swelling Verified 05/29/22 16:59 sertraline AdvReac Intermediate anxiety Verified 05/29/22 16:59 Family History Mother Hypertension CVA (cerebral vascular accident) CAD (coronary artery disease) Father Colon cancer Leukemia Throat cancer Surgical History History of cardioversion (06/2021) History of radiofrequency ablation procedure for cardiac arrhythmia (02/03/22) History of coronary artery stent placement (05/08/18) History of thyroidectomy History of breast lump removal History of left heart catheterization (10/04/14) History of lobectomy of thyroid History of total abdominal hysterectomy Social History housing: house number of children: 1 Smoking Status: Heavy Smoker (>10/day) Tobacco: How many years used: 50 alcohol intake: never substance use type: does not use ROS Constitutional Constitutional: Denies chills, fatigue, fever(s) or malaise Eyes Eyes: Denies blurry vision ENT HEENT: Reports nasal congestion, nasal discharge and post nasal drip; Denies headache(s) Cardiovascular Cardiovascular: Reports chest pain and orthopnea; Denies dyspnea on exertion or syncope Respiratory/Chest Respiratory/Chest: Reports cough, shortness of breath at rest and shortness of breath with exertion Gastrointestinal Gastrointestinal: Denies constipation, diarrhea, nausea or vomiting Genitourinary Genitourinary: Denies dysuria Neurologic Neurologic: Denies focal weakness, numbness or tremor(s) Psychiatric Psychiatric: Denies anxiety or depression Vital Signs Vital Signs Vital Signs: 07/10/25 04:55 07/10/25 05:24 07/10/25 05:51 Temperature 98.8 F (more content not included)... Normal [facility] L501.4021on 07-10-2025 Trop T High Sen 28 ng/L High <=14 [facility] Comment on above: Performed By: #### L 501.4021 #### [facility] [address] [place], [address] Lipaseon 07-10-2025 Lipase [Catalytic activity/Vol] 14 U/L Normal 13-75 [facility] Comment on above: Result Comment: Michi walker note: LIPASE revised reference range effective 22. New Lipase methodology. Expected to produce lower values than the previous assay method. NEW Reference Range: 13 - 75 U/L Performed By: #### L 501.2450, L500.4050, L100.0100 #### [facility] [address] [place], [address] Pro- Brain NATRIURETIC PEPTI Kevon 07-10-2025 Natriuretic peptide B (Bld) [Mass/Vol] 80218 pg/mL High <=900 [facility] Comment on above: Result Comment: Hear t Failure Unlikely: < 300 pg/mL Heart Failure Likely < 50 Years: > 450 pg/mL 50-75 Years: > 900 pg/mL >75 Years: > 1800 pg/mL Performed By: #### L 100.0100, L500.2500 #### [facility] [address] [place], [address] Stress Reporton 07-10-2025 Stress Report [facility] [address] [place] [address] MR#: [id number] Acct: [id number] Name: CHRISTY MOISE Rep #: [id number] : 1950 74 From: Any Garcia MD Primary Care: Dr. Adarsh Duggan MD Status: ADM [facility] Referring Dr: Sex: F C Stress Test Report Date: 07/10/2025 Procedure: Pharmacologic stress nuclear imaging study Indications: Chest pain Consent: Per the patient Procedure: The patient underwent pharmacologic (Regadenoson 0.4mg ) evaluation with a peak heart rate of 83 beats per minute (56%predicted maximal heart rate) and a peak blood pressure of 138/84 mmHg. The baseline ECG demonstrated sinus rhythm with nonspecific ST-T changes. The peak pharmacologic ECG was nondiagnostic secondary to baseline abnormalities. No significant cardiac dysrhythmias noted. There was no complaint of chest discomfort during pharmacologic infusion or recovery. The patient was injected with 11.1 millicuries of technetium 99m Cardiolite and subsequently rest SPECT Cardiolite nuclear imaging was obtained in the horizontal long, vertical long, and short axis views. The patient underwent pharmacologic (Regadenoson) evaluation. The patient was injected with 33.9 millicuries of technetium 99m Cardiolite and subsequently stress SPECT Cardiolite nuclear imaging was obtained in the horizontal long, vertical long, and short axis views. A gated Cardiolite study at peak stress was obtained. The examination was stopped secondary to completion of protocol. Rest and stress SPECT Cardiolite nuclear imaging status post realignment, normalization, and attenuation correction demonstrate mildly reduced perfusion of the inferior wall post pharmacological stress, suggestive of mild inferior ischemia. There is end systolic thickening and brightening. The gated Cardiolite study demonstrates myocardial thickening and inward wall motion. The reported LVEF is 47%. Impression: 1. Pharmacologic (Regadenoson) evaluation 2. Peak pharmacologic ECG was nondiagnostic. 3. No significant cardiac dysrhythmias noted. 5. Mild inferior wall ischemia. 6. The gated Cardiolite study reports an LVEF of 47%. This note was generated with [employer] software. It may contain incorrect words, spelling, and punctuation that were not noted in checking the note before signing. 07/10/25 1143 Date Any Garcia MD CC: Dr. [place] Louie DO; Dr. Adarsh Duggan MD; Dr. Temo Rider MD Date Dictated: 07/10/25 114 Date Transcribed: 07/10/25 114 Supervisor Tree Trimming: SALVADOR Signed Normal [facility] Troponin T HS 2 HRon 025 Trop T High Sen 34 ng/L High <=14 [facility] Comment on above: Performed By: #### L 499.0042 #### [facility] [address] [place], [place], [address] Troponin T HS 4 HRon 025 Trop T High Sen 39 ng/L High <=14 [facility] Comment on above: Performed By: #### L 499.0043 #### [facility] [address] [place], [address] 36on 07-03-2025 36 Rx sent. OARRS repor t reviewed with no discrepancies. CSA needs signed at upcoming appointment on 08/02/2025. Follow up as scheduled. [facility] 36 Csa 07/26/[address] [facility] 36 Medication name: clonazePAM (KlonoPIN) Medication dosage: 2mg [...] prior to picking up the medication: Yes [facility] ED Nursing Noteon 06-23-2025 ED Nursing Note Patient arrived ambulatory to room 5 without difficulty. Patient complains of pain in right index finger for the past couple of days. Patient denies any injury to finger. Normal [facility] ED Provider Noteon ED Provider Note EMERGENCY [...] [06/23/251745] Temp Heart Rate Resp BP 36.4 ?C [...] kg (125 lb) Height: 1.676 m (5' 6) The patient presented with a chief complaint of finger pain. The differential diagnosis associated with this patient's presentation includes paronychia, arthritis. Attempted a bedside drainage of the paronychia. Directed to use warm compresses and soaks. Diagnoses as of 06/23/251856 Paronychia of finger of right hand ED Medications managed: Medications lidocaine (Xylocaine) 1 % injection 5 mL (5 mL Infiltration Given by Other 06/23/251853) HYDROcodone-acetaminophe n (Arlee) 5-325 MG per tablet 1 tablet (1 tablet Oral Given 06/23/251853) sulfamethoxazole-trimeth oprim (Bactrim DS) 800-160 MG per tablet 1 [...] Patient was pre (more content not included)... Normal [facility] No Panel Informationon 06-23 Alexandro Neville MD [...] loss: none Specify Complication(s): no apparent complications [address] 06-14-2025 36 Rx sent. OARRS repor t reviewed with no discrepancies. CSA signed in March 2025. Follow up as scheduled. [address] 06-13-2025 04/13/[address] 06-12-2025 36 Medication name: pregabalin (Lyrica) 75 MG [...] prior to picking up the medication: No [address] 06-05-2025 Reviewed chart. Refi ll appropriate. RX sent. [place] [address] Csa 07/26/24 [place] [address] Medication name: clonazePAM (KlonoPIN) 2 MG tablet [...] prior to picking up the medication: Yes [address] 05-16-2025 36 Reviewed chart. Refi ll appropriate. RX sent. [place] [address] Csa 04/13/[address] 05-12-2025 36 Medication name: pregabalin (Lyrica) [...] prior to picking up the medication: Yes [address] 05-03-2025 36 Rx sent. OARRS repor t reviewed with no discrepancies. CSA signed 07/26/24 for Klonopin. Follow up as scheduled. Will need to sign a new CSA at upcoming appointment. [facility] 36 CSMA 04-13-[address] [facility] 36 Ordering provider: Claudia Duggan Date of [...] of last refill (see medication tab): 01/12/[address] [facility] 36on 04-12-2025 36 Called and spoke wit h patient, will stop in this afternoon to sign a controlled substance agreement [place] [address] Rx sent, OARRS repor t done, no inconsistencies, a new CS agreement needs signed [place] [id number] CSA Lyrica 02/26/24 [place] [address] Ordering provider: Claudia Duggan Date of last [...] of last refill (see medication tab): 03/09/[address] 04-10-2025 36 Noted in appt [facility] 04-07-2025 36 Rx sent. OARRS repor t reviewed with no discrepancies. CSA will need signed at upcoming appointment in July. Follow up as scheduled. [address] 04-06-2025 36 Medication name: clonazePAM (KlonoPIN) 2 MG [...] prior to picking up the medication: N/A [address] 03-09-2025 36 Rx sent, OARRS repor t done, no inconsistencies, CS agreement in place [place] [address] Csa lyrica 02/26/24 Klonopin 07/26/24 [place] [address] Ordering provider: Adarsh Duggan Date of last office visit: 01/25/25 Date of next office visit: 08/02/25 Updated/Validated preferred pharmacy: Yes [facility] [place] [facility]) Patient instructed to contact the pharmacy [...] of last refill (see medication tab): 02/16/[address] [facility] 02-16-2025 36 Rx sent, OARRS repor t done, no inconsistencies, CS agreement will need signed before her next refill. [facility] 02-14-2025 36 CSA Lyrica 02/26/[address] [facility] 36 Medication name: pregabalin (Lyrica) 75 MG [...] medication tab): 01/19/25 Updated/Validated preferred pharmacy: Yes [facility] - [place], [place] - [address] [place] [address] Patient instructed to contact the pharmacy prior to picking up the medication: Yes [facility] 36on 02-09-2025 36 Rx sent, OARRS repor t done, no inconsistencies, CS agreement in place [facility] 36on 02-07-2025 36 07-26-[address] [facility] 36 Medication name: clonazePAM (KlonoPIN) 2 MG [...] prior to picking up the medication: Yes [facility] Office Visiton 01-25-2025 Follow-up visit [id number] Ruba Moise 1950 F Date Provider Department Center 01/25/2025 [id number][facility]ARSH [facility] Family History Problem Relation Age of Onset High Blood Pressure Mother Stroke Mother Heart disease Mother Cancer Father Cancer Other Colon cancer Other Other cancer Other Comments: Father fam hx Throat CA, colon and leukemia Family Status - Relation Status Age at Mother Father Other Other Alive Level of Service:45685 [place] OFFICE/OUTPATIENT ESTABLISHED MOD MDM 30 MIN Reason for Visit and Comments: Medication Check [9447227335] Health Maintenance [872] - CRCS- declines Mammo- declines Anxiety [9] Depression [32] COPD [313] Coronary Artery Disease [187] Atrial Fibrillation [80] Normal [facility] Progress Noteon 01-25-2025 Progress Note Controlled, continue rosuvastatin 5 mg daily Normal [facility] Progress Note Discussed smoking cessation she says she is trying to quit however she gives no indication she is working hard at it. Normal [facility] Progress Note Partial remission currently on no medication Normal [facility] Progress Note Partial remission, continue clonazepam 2 mg twice a day as needed Normal [facility] Progress Note Currently this is no t bothering her enough that she wants to have anything done with it she will keep a watch on it and if it gets worse or becomes more painful she will let me know and we will send her to a hand surgeon. Normal [facility] Progress Note Stable, continue Lyr ica 75 mg twice a day [facility] Progress Note Stable, continue Cecilia el 5 mg twice a day and metoprolol 100 mg daily for rate control. Normal [facility] Progress Note Initially elevated, recheck was normal continue metoprolol 100 mg daily Normal [facility] Progress Note Stable, no recent an hector continue metoprolol 100 mg daily, rosuvastatin [address] [facility] Progress Note Stable, continue Symbicort 160-4.52 puffs daily and albuterol as needed. Normal [facility] Progress Note Stable, continue Lyr ica 75 mg twice a day [facility] Progress Note 01/25/2025 Jonathan Moise (: 1950) [...] rate control. 3. Coronary artery disease involving [place] coronary artery of [place] heart without angina pectoris Assessment & Plan: [...] about 6 months (around 07/28/2025). SUBJECTIVE/OBJECTIVE: RAI aSeed comes in today for 6-month follow-up on [...] lb 6.4 oz (56.9 kg) Height: 5' 6 (1.676 m) Physical Exam Vitals and nursing [...] note. Adarsh Duggan MD 01/25/2025 2:10 PM [place] [id number] 36 Rx sent, OARRS repor t done, no inconsistencies, CS agreement in place [place] [id number] 36 CSA Lyrica 02/26/[address] [facility] 36 Medication name: pregabalin (Lyrica) 75 MG [...] prior to picking up the medication: Yes [address] 01-12-2025 36 Rx sent, OARRS repor t done, no inconsistencies, CS agreement in place [address] 01-11-2025 36 07-26-[address] [facility] 36 Ordering provider: Claudia Duggan Date of [...] of last refill (see medication tab): 12/17/[address] 12-22-2024 36 Rx sent, OARRS repor t done, no inconsistencies, CS agreement in place [address] 12-20-2024 36 CSA Lyrica 02/26/24 [place] [address] Medication name: pregabalin (Lyrica) 75 MG capsule [...] prior to picking up the medication: Yes [address] 12-15-2024 36 Rx sent, OARRS repor t done, no inconsistencies, CS agreement in place [address] 12-14-[address] [place] [address] 07/26/24 [place] [address] Medication name: clonazePAM (KlonoPIN) 2 MG tablet [...] prior to picking up the medication: Yes [place] [id number] 36 Rx sent, OARRS repor t done, no inconsistencies, CS agreement in place [address] 02/26/24 Noted to sign at next appt. [place] [address] Medication name: pregabalin (Lyrica) 75 MG capsule [...] prior to picking up the medication: Yes [address] 11-17-2024 36 Rx sent, OARRS repor t done, no inconsistencies, CS agreement in place [address] 11-16-2024 36 [facility] 07/26/24 [place] [address] Ordering provider: Chastity Ruby Date of last office visit: 08.29.2024 [...] of last refill (see medication tab): 07.01.[address] 10-26-2024 36 Reviewed chart. Refi ll appropriate. RX sent. [address] Lyrica 02/26/24 RFP Normal [facility] 36 Medication name: pregabalin (Lyrica) 75 MG [...] prior to picking up the medication: No [address] 10-21-2024 36 Rx sent. OARRS repor t reviewed with no discrepancies. [facility] signed July 2024. Follow up as scheduled. [address] 10-20-2024 [address] 10-17-2024 36 Not due for refill u ntil 10/23/24. Will refill this Thursday (10/21/24). [address] 07/26/24 [place] [address] Medication name: clonazePAM (KlonoPIN) Medication dosage: 2 [...] medication tab): 09/22/24 Updated/Validated preferred pharmacy: Yes [facility] Drug Wayne Mccallum Patient instructed to contact the pharmacy prior to picking up the medication: Yes [address] 10-06-2024 36 Message released to patient as written. yes Patient's further questions if applicable: none Were all questions from office addressed or relayed to the patient from encounter: Yes Normal [facility] 36 ----- Message from Adarsh Duggan [...] Left a message to return call. Normal [facility] 36on 10-05-2024 36 ----- Message from Adarsh [...] Left a message to return call. Normal [facility] CT LUNG SCREENING LOW DOSEon 10-05-2024 CT [...] 1. Lung-RADS C (more content not included)... [facility] 36on 09-26-2024 Reviewed chart. Refi ll appropriate. RX sent. [facility] 36 CSA 02/26/24 [place] [address] Medication name: pregabalin (Lyrica) Medication dosage: 75 [...] prior to picking up the medication: Yes [place] [address]on 09-22-2024 36 Rx sent, OARRS repor t done, no inconsistencies, CS agreement in place [place] [address]on 09-20-2024 36 CSMA 07/26/24 [facility] 36 Ordering [...] of last refill (see medication tab): 08/25/[address] 08-30-2024 36 Rx sent, OARRS repor t done, no consistency, CS agreement in place [place] [address] Notified patient, no further questions, does need a refill on lyrica, please send to [facility] CSA Lyrica 02/26/24 [facility] 36 ----- Message from Adarsh Duggan MD sent at 08/30/2024 5:49 AM EST ----- Cholesterol is excellent, continue rosuvastatin at current dose and very strict low-fat low-cholesterol diet [facility] Progress Noteon 08-29-2024 Progress Note Venipuncture complet ed by [facility]. [address] 08-25-2024 36 Rx sent, OARRS repor t done, no inconsistencies, CS agreement in place [address] 08-24-2024 36 CSA 07/26/24 [place] [address] Ordering provider: Claudia Duggan Date of last [...] Date of last refill (see medication tab): [address] 08-03-2024 36 Rx sent, OARRS repor t done, no inconsistencies, CS agreement in place [address] 02/26/[address] 08-02-2024 36 Medication name: pregabalin (Lyrica) [...] to picking up the medication: No Normal [facility] 36on 07-27-2024 36 Rx sent, order signed Normal [facility] 36 Med and orders pended. Normal [facility] 36 Message released to patient as [...] to the patient from encounter: Yes Normal [facility] 36 ----- Message from Adarsh Duggan [...] no nurse visit is needed. Thanks! Normal [facility] XR Hip - left 3 Viewson 05- No fracture or dislocation of the pelvis or left hip. Mild osteoarthritis of the bilateral hips. Report Dictated on Electronically Signed By: Maged Castro Electronically Signed Date/Time: 01/24/2023 4:15 PM EDT [facility] Patient Name: JONATHAN MOISE : 1950 [...] iliac and femoral vascular calcification is noted. [facility] Maged Castro MD - 01/24/2023 Patient [...] Electronically Signed Date/Time: 01/24/2023 4:15 PM EDT [facility] Radiology Study observation (narrative) [facility] XR Hip - left 3 ViewsOrdered By: Maged Castro on 01-24-2023 [facility] Work Phone: XR Lumbar spine 2 or [...] Electronically Signed Date/Time: 01/24/2023 4:19 PM EDT [facility] Patient Name: JONATHAN MOISE : [...] No lytic or blastic lesions are seen. [facility] Maged Castro MD - 01/24/2023 Patient [...] Electronically Signed Date/Time: 01/24/2023 4:19 PM EDT [facility] Radiology Study observation (narrative) [facility] Absolute lymphocyte counton 05-29-2022 Lymphocytes Auto (Unsp spec) [#/Vol] 1.25 10*3/uL 0.83-4.51 [facility] Work Phone: Basophil percentageon 2021 Basophils/100 WBC (Bld) 0.2 % 0-1 [facility] Work Phone: [phone] Chloride [Moles/Vol] 102 mmol/L 98-107 [facility] Work Phone: [phone] Eosinophils/100 WBC (Bld) 0.2 % 0-5 [facility] Work Phone: [phone] Glucose [Mass/Vol] 120 mg/dL 74-106 [facility] Work Phone: Comment on above: Fasting Glucose resu lt from 100 to 125 mg/dL suggests IMPAIRED HOMEOSTASIS per A.D.A. criteria. Neutrophils (Bld) [#/Vol] 3.1 10*3/uL 2.0-7.7 [facility] Work Phone: [phone] Neutrophils/100 WBC (Bld) 59.9 % 47-70 [facility] Work Phone: [phone] Potassium [Moles/Vol] 3.5 mmol/L 3.5-5.1 [facility] Work Phone: Sodium [Moles/Vol] 140 mmol/L 136-145 [facility] Work Phone: WBC (Bld) [#/Vol] 5.2 10*3/uL 4.4-11.0 [facility] Work Phone: Blood erythrocytes count (nu mber/volume)on 05-29-2022 RBC (Bld) [#/Vol] 4.60 10*6/uL 4.2-5.4 [facility] Work Phone: Blood hemoglobin measurement (mass/volume)on 05-29-2022 Hemoglobin (Bld) [Mass/Vol] 14.6 g/dL 12.0-15.0 [facility] Work Phone: Blood lymphocytes/100 leukoc yteson 05-29-2022 Lymphocytes/100 WBC (Bld) 24.2 % 19-41 [facility] Work Phone: Blood monocytes/100 leukocyt eson 05-29-2022 Monocytes/100 WBC (Bld) 15.3 % 0-10 [facility] Work Phone: [phone] Blood platelet mean volumeon 05-29-2022 Platelet mean volume (Bld) [Entitic vol] 11.0 fL 6.2-12.0 [facility] Work Phone: Determination of erythrocyte mean corpuscular volume (MCV)on 05-29-2022 MCV (RBC) [Entitic vol] 96.1 fL 81-99 [facility] Work Phone: [phone] Hematocrit Auto (Bld) [Volum e fraction]on 05-29-2022 Hematocrit (Bld) [Volume fraction] 44.2 % 37-47 [facility] Work Phone: Laboratory - Chemistry and C hemistry - challengeon 05-29-2022 CO2 [Moles/Vol] 27.0 mmol/L 21.0-32.0 [facility] Work Phone: Urea nitrogen/Creatinine [Mass ratio] 24.4 mg/mg 10-20 [facility] Work Phone: Laboratory - Hematology and Cell countson 05-29-2022 Erythrocyte distribution width (RBC) [Entitic vol] 48.8 fL 35.1-43.9 [facility] Work Phone: Erythrocyte distribution width (RBC) [Ratio] 13.7 % 11.6-14.6 [facility] Work Phone: Immature granulocytes/100 WBC (Bld) 0.200 % 0.0-0.9 [facility] Work Phone: Comment on above: IG% - Immature Granu locytes (promyelocytes, myelocytes and metamyelocytes) > 1% indicates that a LEFT SHIFT is Present. MCH (RBC) [Entitic mass] 31.7 pg 27.0-32.0 [facility] Work Phone: Nucleated RBC/100 WBC (Bld) [Ratio] 0 % 0-5 [facility] Work Phone: MCHC Auto (RBC) [Mass/Vol]on 05-29-2022 MCHC (RBC) [Mass/Vol] 33.0 g/dL 32-36 [facility] Work Phone: No Panel Informationon 05-29 Estimated Creatinine Clearance Calc 56.23 ml/min [facility] Work Phone: Estimated GFR (MDRD) Amer 79 mL/min >60 [facility] Work Phone: Comment on above: GFR Calc Estimated GFR (MDRD) Non-Af Amer 66 mL/min >60 [facility] Work Phone: Comment on above: Non- GFR Calc Troponin I High Sensitivity 34 pg/mL 3.0-54.0 [facility] Work Phone: Comment on above: Please Note: [place] t Units and Gender Specific Reference Ranges. For more information see Policy Stat Procedure [place] High Sensitivity Troponin (TNIH) and attachments. Platelets bldon 05-29-2022 Platelets (Bld) [#/Vol] 187 10*3/uL 150-450 [facility] Work Phone: Serum or plasma calcium evelin urement (mass/volume)on 05-29-2022 Calcium [Mass/Vol] 9.1 mg/dL 8.5-10.1 [facility] Work Phone: Serum or plasma creatinine m easurement (mass/volume)on 05-29-2022 Creatinine [Mass/Vol] 0.90 mg/dL 0.55-1.02 [facility] Work Phone: Comment on above: The validity of the calculated GFR & GFRAA in patients over 70 years has not been determined. Clinical correlation is essential. Serum or plasma urea nitroge n measurement (mass/volume)on 05-29-2022 Urea nitrogen [Mass/Vol] 22 mg/dL 7-18 [facility] Work Phone: Thin prep Papanicolaou smear with manual screeningon 05-29-2022 Thin prep Papanicolaou smear with manual screening 11 5-15 [facility] Work Phone: CT SOFT TISSUE NECK WO CONTR Lola 05-24-2022 Patient Name: JONATHAN MOISE Computed Tomography ACCESSION EXAM DATE/TIME PROCEDURE ORDERING PROVIDER [id number] 05/24/2022 16:[address] Soft Tissue Neck w/o BRAYAN BERGMAN Contrast CPT code 68253 Reason For Exam (CT Soft Tissue Neck w/o Contrast) left neck pain, lump left neck Report EXAMINATION: CT Soft Tissue [...] NEIL Transcribed Date and Time: 05/24/2022 4:57 [facility] Familia Carrera MD - 05/24/2022 [id number] Tomography ACCESSION EXAM DATE/TIME PROCEDURE ORDERING PROVIDER [id number] 05/24/2022 16:[address] Soft Tissue Neck w/o BRAYAN BERGMAN Contrast CPT code 28057 Reason For Exam (CT Soft Tissue Neck w/o Contrast) left neck pain, lump left neck Report EXAMINATION: CT Soft Tissue [...] CONTR ASTOrdered By: Familia Carrera on 05-24-2022 [facility] Work Phone: CT Soft Tissue Neck w/o Cont yousuf 05-24-2022 CT Soft Tissue Neck w/o Contrast Patient Name: JONATHAN MOISE Computed Tomography ACCESSION EXAM DATE/TIME PROCEDURE ORDERING PROVIDER [id number] 05/24/2022 16:[address] Soft Tissue Neck w/o BRAYAN BERGMAN Contrast CPT code 85106 Reason For Exam (CT Soft Tissue Neck w/o Contrast) left neck pain, lump left neck Report EXAMINATION: CT Soft Tissue [...] Date and Time: 05/24/2022 4:57 [facility] C[facility]N Telephone (AGCARDPOB ) -------- CHRISTY MOISE ([id number]) 1950 F Date Time Provider Department 02/19/22 CARYN WOOD During your visit today, we [...] Other Visit Diagnosis:Dyspnea, unspecified type [R06.00] Order(s):ECHO [[id number]] Order #: [id number]: 1 FUTURE perflutren lipid microspheres 1.3 mL in NaCl (PF) 0.9% 10 mL injection (DEFINITY)Disp: Rfl: sodium chloride 0.9 % (flush) 10 mL (BD POSIFLUSH)Disp: Rfl: HOLTER MONITOR 24 HOUR [[id number]] Order #: [id number] FUTURE Prescriptions as of 02/19/2022 - ELIQUIS [...] 11/20/2015 Paroxysmal atrial fibrillation (HCC) [I48.0] 08/28/2021 shelter current use of antiarrhythmic drug [Z*08/28/2021 At risk for stroke [Z91.89] 08/28/2021 Anticoagulant long-term use [Z79.01] 08/28/2021 Coronary artery disease involving [place]encer*08/28/2021 History of coronary artery stent placement [Z95*08/28/2021 Anxiety [F41.9] 01/28/2017 Claudication (HCC) [I73.9] 08/24/2019 Essential hypertension [I10] 01/07/2016 Hiatal hernia [K44.9] 09/04/2017 Irritable bowel syndrome [K58.9] 08/28/2021 Myoclonic disorder [G25.3] 08/28/2021 Neuropathy [G62.9] 08/28/2021 S/P angioplasty with stent [Z95.820] 04/04/2019 Secondary pulmonary hypertension [NXX0818] 08/28/2021 Tobacco abuse [Z72.0] 08/28/2021 Chronic obstructive pulmonary disease (HCC) [J4*01/08/2016 Depressive disorder [F32.A] 01/06/2017 Palpitations [R00.2] Fibromyalgia [M79.7] 09/18/2021 Nonrheumatic mitral (valve) insufficiency [I34.*09/18/2021 Nonrheumatic tricuspid (valve) insufficiency [I*09/18/2021 ST-segment elevation myocardial infarction (ELLYN*04/[address] elevation myocardial infarction (*01/21/2022 Status post catheter ablation of atrial fibrill*02/03/2022 Prescriptions ordered this encounter Disp Refills Start End PERFLUTREN LIPID MICROSPHERES 1.1 MG* 02/19/2022 05/21/2023 Route: INTRAVENOUS SODIUM CHLORIDE 0.9 % (FLUSH) INJECT* 02/19/2022 05/21/2023 Route: INTRAVENOUS Encounter Status:Closed by CARYN WOOD on 02/19/22 [facility] 02-07-2022 CNPN Telephone (AGCARDPOB ) -------- JOSE MARIACHRISTY ([id number]) 1950 F Date Time Provider Department 02/07/22 ANDREA JENNINGS During your visit today, we recorded the following information about you: Andrea Jennings APRN.PRODUCT EVANGELIST 02/07/2022 2:53 PM Signed Patient underwent cryotherapy [...] RN - Fully Assessed Reason for Visit: Appointment [...] 11/20/2015 Paroxysmal atrial fibrillation (HCC) [I48.0] 08/28/2021 shelter current use of antiarrhythmic drug [Z*08/28/2021 At risk for stroke [Z91.89] 08/28/2021 Anticoagulant long-term use [Z79.01] 08/28/2021 Coronary artery disease involving [place]encer*08/28/2021 History of coronary artery stent placement [Z95*08/28/2021 Anxiety [F41.9] 01/28/2017 Claudication (HCC) [I73.9] 08/24/2019 Essential hypertension [I10] 01/07/2016 Hiatal hernia [K44.9] 09/04/2017 Irritable bowel syndrome [K58.9] 08/28/2021 Myoclonic disorder [G25.3] 08/28/2021 Neuropathy [G62.9] 08/28/2021 S/P angioplasty with stent [Z95.820] 04/04/2019 Secondary pulmonary hypertension [XKD8750] 08/28/2021 Tobacco abuse [Z72.0] 08/28/2021 Chronic obstructive pulmonary disease (HCC) [J4*01/08/2016 Depressive disorder [F32.A] 01/06/2017 Palpitations [R00.2] Fibromyalgia [M79.7] 09/18/2021 Nonrheumatic mitral (valve) insufficiency [I34.*09/18/2021 Nonrheumatic tricuspid (valve) insufficiency [I*09/18/2021 ST-segment elevation myocardial infarction (ELLYN*04/[address] elevation myocardial infarction (*01/21/2022 Status post catheter ablation of atrial fibrill*02/03/2022 Encounter Status:Closed by ANDREA JENNINGS on 02/07/22 Normal [facility] Absolute lymphocyte counton 02-06-2022 Lymphocytes Auto (Unsp spec) [#/Vol] 0.69 10*3/uL 0.83-4.51 [facility] Work Phone: Basophil percentageon 2021 Basophils/100 WBC (Bld) 0.3 % 0-1 [facility] Work Phone: Chloride [Moles/Vol] 105 mmol/L 98-107 [facility] Work Phone: Eosinophils/100 WBC (Bld) 2.3 % 0-5 [facility] Work Phone: Glucose [Mass/Vol] 190 mg/dL 74-106 [facility] Work Phone: Comment on above: Fasting Glucose resu lt greater than or equal to 126 mg/dL suggests DIABETES MELLITUS per A.D.A. criteria. Neutrophils (Bld) [#/Vol] 9.7 10*3/uL 2.0-7.7 [facility] Work Phone: Neutrophils/100 WBC (Bld) 87.2 % 47-70 [facility] Work Phone: Potassium [Moles/Vol] 3.8 mmol/L 3.5-5.1 [facility] Work Phone: Sodium [Moles/Vol] 139 mmol/L 136-145 [facility] Work Phone: WBC (Bld) [#/Vol] 11.1 10*3/uL 4.4-11.0 [facility] Work Phone: Blood erythrocytes count (nu mber/volume)on 02-06-2022 RBC (Bld) [#/Vol] 3.79 10*6/uL 4.2-5.4 [facility] Work Phone: Blood hemoglobin measurement (mass/volume)on 02-06-2022 Hemoglobin (Bld) [Mass/Vol] 12.1 g/dL 12.0-15.0 [facility] Work Phone: Blood lymphocytes/100 leukoc yteson 02-06-2022 Lymphocytes/100 WBC (Bld) 6.2 % 19-41 [facility] Work Phone: Blood monocytes/100 leukocyt eson 02-06-2022 Monocytes/100 WBC (Bld) 3.5 % 0-10 [facility] Work Phone: Blood platelet mean volumeon 02-06-2022 Platelet mean volume (Bld) [Entitic vol] 10.6 fL 6.2-12.0 [facility] Work Phone: Determination of erythrocyte mean corpuscular volume (MCV)on 02-06-2022 MCV (RBC) [Entitic vol] 96.3 fL 81-99 [facility] Work Phone: Hematocrit Auto (Bld) [Volum e fraction]on 02-06-2022 Hematocrit (Bld) [Volume fraction] 36.5 % 37-47 [facility] Work Phone: Laboratory - Chemistry and C hemistry - challengeon 02-06-2022 Magnesium [Mass/Vol] 2.1 mg/dL 1.6-2.6 [facility] Work Phone: CO2 [Moles/Vol] 25.0 mmol/L 21.0-32.0 [facility] Work Phone: Urea nitrogen/Creatinine [Mass ratio] 13.3 mg/mg 10-20 [facility] Work Phone: Laboratory - Hematology and Cell countson 02-06-2022 Erythrocyte distribution width (RBC) [Entitic vol] 46.5 fL 35.1-43.9 [facility] Work Phone: Erythrocyte distribution width (RBC) [Ratio] 13.0 % 11.6-14.6 [facility] Work Phone: Immature granulocytes/100 WBC (Bld) 0.500 % 0.0-0.9 [facility] Work Phone: Comment on above: IG% - Immature Granu locytes (promyelocytes, myelocytes and metamyelocytes) > 1% indicates that a LEFT SHIFT is Present. MCH (RBC) [Entitic mass] 31.9 pg 27.0-32.0 [facility] Work Phone: Nucleated RBC/100 WBC (Bld) [Ratio] 0 % 0-5 [facility] Work Phone: MCHC Auto (RBC) [Mass/Vol]on 02-06-2022 MCHC (RBC) [Mass/Vol] 33.2 g/dL 32-36 [facility] Work Phone: No Panel Informationon 02-06 Troponin I High Sensitivity 1251 pg/mL 3.0-54.0 [facility] Work Phone: Comment on above: Critical Result(s) C alled at: 22:58:10 02/06/2022 by: Farhat Iqbal to Cathi Flores RN (U). Results read back by same. Please Note: New Test Units and Gender Specific Reference Ranges. For more information see Policy Stat Procedure [place] High Sensitivity Troponin (TNIH) and attachments. Estimated Creatinine Clearance Calc 48.11 ml/min [facility] Work Phone: Estimated GFR (MDRD) Amer 80 mL/min >60 [facility] Work Phone: Comment on above: GFR Calc Estimated GFR (MDRD) Non-Af Amer 66 mL/min >60 [facility] Work Phone: Comment on above: Non- GFR Calc Platelets bldon 02-06-2022 Platelets (Bld) [#/Vol] 250 10*3/uL 150-450 [facility] Work Phone: Serum or plasma calcium evelin urement (mass/volume)on 02-06-2022 Calcium [Mass/Vol] 9.0 mg/dL 8.5-10.1 [facility] Work Phone: Serum or plasma creatinine m easurement (mass/volume)on 02-06-2022 Creatinine [Mass/Vol] 0.90 mg/dL 0.55-1.02 [facility] Work Phone: Comment on above: The validity of the calculated GFR & GFRAA in patients over 70 years has not been determined. Clinical correlation is essential. Serum or plasma urea nitroge n measurement (mass/volume)on 02-06-2022 Urea nitrogen [Mass/Vol] 12 mg/dL 7-18 [facility] Work Phone: Thin prep Papanicolaou smear with manual screeningon 02-06-2022 Thin prep Papanicolaou smear with manual screening 9 -15 [facility] Work Phone: Basic metabolic 2000 panelon 02-04-2022 Anion gap [Moles/Vol] 9 mmol/L Normal 9-18 [facility] Comment on above: Order Comment: Speci men Type: BLOOD SPECIMEN Ordering Facility: [facility] Address: [address] [place] [address] Performed By: #### 2 4321-2 #### [facility] CLIA [id number] 1 [place] [address] [place] Calcium [Mass/Vol] 8.3 mg/dL Low 8.5-10.2 [facility] Comment on above: Order Comment: Speci men Type: BLOOD SPECIMEN Ordering Facility: [facility] Address: [address] [place] [address] Performed By: #### 2 4321-2 #### [facility] CLIA [id number] 1 [place] [address] [place] Chloride [Moles/Vol] 105 mmol/L Normal 97-105 [facility] Comment on above: Order Comment: Speci men Type: BLOOD SPECIMEN Ordering Facility: [facility] Address: [address] [place] [address] Performed By: #### 2 4321-2 #### [facility] CLIA [id number] 1 [place] [address] [place] CO2 [Moles/Vol] 24 mmol/L Normal 22-30 [facility] Comment on above: Order Comment: Speci men Type: BLOOD SPECIMEN Ordering Facility: [facility] Address: [address] [place] [address] Performed By: #### 2 4321-2 #### [facility] CLIA [id number] [address] STATES [facility] Creatinine [Mass/Vol] 0.80 mg/dL Normal 0.58-0.96 [facility] Comment on above: Order Comment: Speci men Type: BLOOD SPECIMEN Ordering Facility: [facility] Address: [address] [place] [address] Performed By: #### 2 4321-2 #### [facility] CLIA [id number] [address] ESTIMATED GLOMERULAR FILTRATION RATE 79 mL/min/1.73m??? Normal >=60 [facility] Comment on above: Order Comment: Lizziei men Type: BLOOD SPECIMEN Ordering Facility: [facility] Address: [address] [place] [address] Result Comment: Jessica mated Glomerular Filtration Rate [...] GFR. Performed By: #### 2 4321-2 #### [facility] CLIA [id number] [address] [place] Glucose [Mass/Vol] 116 mg/dL High 74-99 [facility] Comment on above: Order Comment: Speci men Type: BLOOD SPECIMEN Ordering Facility: [facility] Address: [address] [place] [address] Result Comment: The [place] Diabetes Association (ADA) provides guidance for cutoff [...] Standards of Medical Care in Diabetes 2016, [place] [employer] Association. Diabetes Care. 2016.39(Suppl 1). Performed By: #### 2 4321-2 #### [facility] CLIA [id number] [address] [place] Potassium [Moles/Vol] 3.9 mmol/L Normal 3.7-5.1 [facility] Comment on above: Order Comment: Speci men Type: BLOOD SPECIMEN Ordering Facility: [facility] Address: [address] [place] [address] Performed By: #### 2 4321-2 #### [facility] CLIA [id number] [address] Sodium [Moles/Vol] 138 mmol/L Normal 136-144 [facility] Comment on above: Order Comment: Lizziei men Type: BLOOD SPECIMEN Ordering Facility: [facility] Address: [address] [place] [address] Performed By: #### 2 4321-2 #### [facility] CLIA [id number] [address] [place] [facility] Urea nitrogen [Mass/Vol] 11 mg/dL Normal 7-21 [facility] Comment on above: Order Comment: Lizziei men Type: BLOOD SPECIMEN Ordering Facility: [facility] Address: [address] [address] Performed By: #### 2 4321-2 #### [facility] CLIA [id number] [address] CBC panel Auto (Bld)on 02-04 Erythrocyte distribution width (RBC) [Ratio] 13.2 % Normal 11.5-15.0 [facility] Comment on above: Order Comment: Lizziei men Type: BLOOD SPECIMEN Ordering Facility: [facility] Address: [address] [address] Performed By: #### 5 8410-2 #### [facility] CLIA [id number] [address] Hematocrit (Bld) [Volume fraction] 34.5 % Low 36.0-46.0 [facility] Comment on above: Order Comment: Speci men Type: BLOOD SPECIMEN Ordering Facility: [facility] Address: [address] [place] [address] Performed By: #### 5 8410-2 #### [facility] CLIA [id number] [address] Hemoglobin (Bld) [Mass/Vol] 11.2 g/dL Low 11.5-15.5 [facility] Comment on above: Order Comment: Speci men Type: BLOOD SPECIMEN Ordering Facility: [facility] Address: [address] [place] [address] Performed By: #### 5 8410-2 #### [facility] CLIA [id number] [address] MCH (RBC) [Entitic mass] 31.5 pg Normal 26.0-34.0 [facility] Comment on above: Order Comment: Speci men Type: BLOOD SPECIMEN Ordering Facility: [facility] Address: [address] [place] [address] Performed By: #### 5 8410-2 #### [facility] CLIA [id number] [address] MCHC (RBC) [Mass/Vol] 32.5 g/dL Normal 30.5-36.0 [facility] Comment on above: Order Comment: Speci men Type: BLOOD SPECIMEN Ordering Facility: [facility] Address: [address] [place] [address] Performed By: #### 5 8410-2 #### [facility] CLIA [id number] [address] OF [facility] MCV (RBC) [Entitic vol] 97.2 fL Normal 80.0-100.0 [facility] Comment on above: Order Comment: Speci men Type: BLOOD SPECIMEN Ordering Facility: [facility] Address: [address] Performed By: #### 5 8410-2 #### [facility] CLIA [id number] [address] Nucleated RBC (Bld) [#/Vol] 10*3/uL Normal <0.01 [facility] Comment on above: Order Comment: Speci men Type: BLOOD SPECIMEN Ordering Facility: [facility] Address: [address] [address] Performed By: #### 5 8410-2 #### [facility] CLIA [id number] [address] Platelet mean volume (Bld) [Entitic vol] 10.3 fL Normal 9.0-12.7 [facility] Comment on above: Order Comment: Speci men Type: BLOOD SPECIMEN Ordering Facility: [facility] Address: [address] [address] Performed By: #### 5 8410-2 #### [facility] CLIA [id number] [address] [place] Platelets (Bld) [#/Vol] 207 10*3/uL Normal 150-400 [facility] Comment on above: Order Comment: Speci men Type: BLOOD SPECIMEN Ordering Facility: [facility] Address: [address] Performed By: #### 5 8410-2 #### [facility] [facility] CLIA [id number] [address] OF [place] RBC (Bld) [#/Vol] 3.55 10*6/uL Low 3.90-5.20 [facility] Comment on above: Order Comment: Speci men Type: BLOOD SPECIMEN Ordering Facility: [facility] Address: [address] [address] Performed By: #### 5 8410-2 #### [facility] CLIA [id number] [address] WBC (Bld) [#/Vol] 8.88 10*3/uL Normal 3.70-11.00 [facility] Comment on above: Order Comment: Jayme luis Type: BLOOD SPECIMEN Ordering Facility: [facility] Address: [facility] [place] [address] Performed By: #### 5 8410-2 #### [facility] CLIA [id number] [address] CNDSon 02-04-2022 CNDS HNO ID: [id number] Author: Andrea Jennings APRN.PRODUCT EVANGELIST Service: Electrophysiology Author Type: Nurse Practitioner Type: Discharge Summary Filed: 02/04/2022 10:42 AM Note Text: -------- Attestation signed by Caryn Wood MD at 02/04/2022 11:35 AM [facility] Electrophysiology (EP) EP Attending Reviewed case. Agree with evaluation and plan of care as outlined by the AUDITING MANAGER, as we discussed. Caryn Wood MD February 04, 2022 11:35 AM -------- DISCHARGE SUMMARY PATIENT NAME: Christy Moise Code [...] fibrillation Active Problems: Paroxysmal atrial fibrillation (HCC) shelter current use of antiarrhythmic drug At risk [...] call for appointment?: No Caryn Wood MD [phone] [place] [address] [facility] [address] PCP Requested Referral Additional Provider to Provider [...] handout. 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 for [...] EVALon 022 ANES POSTPROC EVAL HNO ID: [id number] Author: Talon Villegas DO Service: Anesthesiology Author Type: Physician Type: Anesthesia Postprocedure Evaluation Filed: 02/03/2022 4:22 PM Note Text: POST ANESTHESIA EVALUATION NOTE : 1950 Procedure Summary Date: 02/03/22 Room / Location: [place] EP 02 / [place] [facility] Anesthesia Start: 932 Anesthesia Stop: 1435 Procedure: COMPLETE EPS W/PVI ABL W/WO 3D MAP ICE (N/A Cardiac) Diagnosis: Paroxysmal atrial fibrillation (HCC) Coronary artery disease involving [place] coronary artery of [place] heart without angina pectoris Palpitations shelter current use of antiarrhythmic drug Anticoagulant long-term [...] February 03, 2022 TIME: 4:22 PM CSN: [id number] Normal [facility] ANES PRE-OPon 02-03-2022 ANES PRE-OP HNO ID: [id number] Author: Talon Villegas DO Service: Anesthesiology Author Type: Physician Type: Anesthesia Preprocedure Evaluation Filed: 02/03/2022 9:22 AM Note Text: ANESTHESIOLOGY DAY OF SURGERY NOTE : 1950 Procedure Information Date/Time: 02/03/22 0900 Procedure: COMPLETE EPS W/PVI ABL W/WO 3D MAP ICE (N/A Cardiac) - cryoablation discontinue Multaq 1 week prior Eliquis HANDP on 01/21 by DEBRA LEWIS PENDING 02/01 PACU/ROU Location: [place] EP 02 / [place] [facility] Surgeons: Caryn Wood MD Estimated body mass index is 22.71 kg/m? as calculated from the following: Height as of 01/21/22: 170.2 cm (5' 7). Weight as of 01/21/22: 65.8 kg (145 lb). Most recent hematocrit and potassium results: Hematocrit 42.9 02/03/2022 Potassium 4.4 02/03/2022 Relevant Problems CARDIO (+) Coronary artery disease involving [place] coronary artery of [place] heart without angina pectoris (+) Essential hypertension (+) Nonrheumatic mitral (valve) insufficiency (+) Paroxysmal atrial fibrillation (HCC) (+) ST-segment elevation myocardial infarction (STEMI) of inferior wall (HCC) (+) Secondary pulmonary hypertension GI (+) Hiatal hernia NEURO-PSYCH (+) History of ST elevation myocardial infarction (STEMI) PULMONARY (+) Chronic obstructive pulmonary disease (HCC) Other (+) Anticoagulant 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 Patient / Responsible Green Party agrees to proceed: yes Patient / Surrogate [...] NaCl 0.9% 1,000 mL 1,000 Units INTRAVENOUS Tape Cutter to OR - [START ON 02/04/2022] heparin 3,000 Units in NaCl 0.9% 500 mL irrigation 3,000 Units IRRIGATION Tape Cutter to OR - [START ON 02/04/2022] heparin (porcine) in 0.9% NaCl 1,000 unit/500 mL 1,000 Units 1,000 Units INTRAVENOUS Tape Cutter to OR Outpatient Medications as of 02/03/2022 [...] February 03, 2022 TIME: 9:21 AM CSN: [id number] Normal [facility] Basic metabolic 2000 panelon 02-03-2022 Anion gap [Moles/Vol] 11 mmol/L Normal 9-18 [facility] Comment on above: Order Comment: Speci men Type: BLOOD SPECIMEN Ordering Facility: [facility] Address: [address] [place] [address] [place] [address] Performed By: #### 2 4321-2 #### [facility] CLIA [id number] 1 [place] [address] [place] Calcium [Mass/Vol] 9.5 mg/dL Normal 8.5-10.2 [facility] Comment on above: Order Comment: Speci men Type: BLOOD SPECIMEN Ordering Facility: [facility] Address: [address] [address] Performed By: #### 2 4321-2 #### [facility] CLIA [id number] [address] [place] Chloride [Moles/Vol] 106 mmol/L High 97-105 [facility] Comment on above: Order Comment: Speci men Type: BLOOD SPECIMEN Ordering Facility: [facility] Address: [facility] [address] Performed By: #### 2 4321-2 #### [facility] CLIA [id number] [address] STATES [place] CO2 [Moles/Vol] 24 mmol/L Normal 22-30 [facility] Comment on above: Order Comment: Speci men Type: BLOOD SPECIMEN Ordering Facility: [facility] Address: [address] [place] [address] Performed By: #### 2 4321-2 #### [facility] CLIA [id number] [address] [place] Creatinine [Mass/Vol] 0.74 mg/dL Normal 0.58-0.96 [facility] Comment on above: Order Comment: Speci men Type: BLOOD SPECIMEN Ordering Facility: [facility] Address: [address] [place] [address] Performed By: #### 2 4321-2 #### [facility] CLIA [id number] [address] [place] ESTIMATED GLOMERULAR FILTRATION RATE 87 mL/min/1.73m??? Normal >=60 [facility] Comment on above: Order Comment: Speci men Type: BLOOD SPECIMEN Ordering Facility: [facility] Address: [address] [place] [address] Result Comment: Jessica mated Glomerular Filtration Rate [...] GFR. Performed By: #### 2 4321-2 #### [facility] CLIA [id number] 1 [place] [address] [place] Glucose [Mass/Vol] 93 mg/dL Normal 74-99 [facility] Comment on above: Order Comment: Jayme luis Type: BLOOD SPECIMEN Ordering Facility: [facility] Address: [address] [place] [address] Result Comment: The [place] Diabetes Association (ADA) provides guidance for cutoff [...] Standards of Medical Care in Diabetes 2016, [place] Diabetes Association. Diabetes Care. 2016.39(Suppl 1). Performed By: #### 2 4321-2 #### [facility] CLIA [id number] 1 [place] [address] [place] Potassium [Moles/Vol] 4.4 mmol/L Normal 3.7-5.1 [facility] Comment on above: Order Comment: Jayme luis Type: BLOOD SPECIMEN Ordering [facility] Address: [address] [address] Performed By: #### 2 4321-2 #### [facility] CLIA [id number] 1 [place] [address] [place] Sodium [Moles/Vol] 141 mmol/L Normal 136-144 [facility] Comment on above: Order Comment: Jayme luis Type: BLOOD SPECIMEN [facility] Address: [address] [address] Performed By: #### 2 4321-2 #### [facility] CLIA [id number] [address] Urea nitrogen [Mass/Vol] 9 mg/dL Normal 7-21 [facility] Comment on above: Order Comment: Speci men Type: BLOOD SPECIMEN Ordering [facility] Address: [address] [place] [address] Performed By: #### 2 4321-2 #### [facility] CLIA [id number] [address] CBC panel Auto (Bld)on 02-03 Erythrocyte distribution width (RBC) [Ratio] 13.2 % Normal 11.5-15.0 [facility] Comment on above: Order Comment: Speci men Type: BLOOD SPECIMEN Order[facility] Address: [address] [place] [address] Performed By: #### 5 8410-2 #### [facility] CLIA [id number] [address] Hematocrit (Bld) [Volume fraction] 42.9 % Normal 36.0-46.0 [facility] Comment on above: Order Comment: Speci men Type: BLOOD SPECIMEN [facility] Address: [address] [place] [address] Performed By: #### 5 8410-2 #### [facility] CLIA [id number] [address] Hemoglobin (Bld) [Mass/Vol] 13.4 g/dL Normal 11.5-15.5 [facility] Comment on above: Order Comment: Speci men Type: BLOOD SPECIMEN Order[facility] Address: [address] [place] [address] Performed By: #### 5 8410-2 #### [facility] CLIA [id number] [address] MCH (RBC) [Entitic mass] 31.2 pg Normal 26.0-34.0 [facility] Comment on above: Order Comment: Speci men Type: BLOOD SPECIMEN Order[facility] Address: [address] [place] [address] Performed By: #### 5 8410-2 #### [facility] CLIA [id number] [address] MCHC (RBC) [Mass/Vol] 31.2 g/dL Normal 30.5-36.0 [facility] Comment on above: Order Comment: Speci men Type: BLOOD SPECIMEN Order[facility] Address: [address] [place] [address] Performed By: #### 5 8410-2 #### [facility] CLIA [id number] [address] MCV (RBC) [Entitic vol] 99.8 fL Normal 80.0-100.0 [facility] Comment on above: Order Comment: Speci men Type: BLOOD SPECIMEN Order[facility] Address: [address] [place] [address] Performed By: #### 5 8410-2 #### [facility] CLIA [id number] [address] Nucleated RBC (Bld) [#/Vol] 10*3/uL Normal <0.01 [facility] Comment on above: Order Comment: Speci men Type: BLOOD SPECIMEN [facility] Address: [address] [place] [address] Performed By: #### 5 8410-2 #### [facility] CLIA [id number] [address] Platelet mean volume (Bld) [Entitic vol] 10.4 fL Normal 9.0-12.7 [facility] Comment on above: Order Comment: Speci men Type: BLOOD SPECIMEN [facility] Address: [address] [place] [address] Performed By: #### 5 8410-2 #### [facility] CLIA [id number] [address] OF [facility] Platelets (Bld) [#/Vol] 285 10*3/uL Normal 150-400 [facility] Comment on above: Order Comment: Speci men Type: BLOOD SPECIMEN [facility] Address: [address] [place] [address] Performed By: #### 5 8410-2 #### [facility] CLIA [id number] [address] RBC (Bld) [#/Vol] 4.30 10*6/uL Normal 3.90-5.20 [facility] Comment on above: Order Comment: Speci men Type: BLOOD SPECIMEN [facility] Address: [address] [place] [address] Performed By: #### 5 8410-2 #### [facility] CLIA [id number] [address] WBC (Bld) [#/Vol] 7.80 10*3/uL Normal 3.70-11.00 [facility] Comment on above: Order Comment: Speci men Type: BLOOD SPECIMEN [facility] Address: [address] [place] [address] Performed By: #### 5 8410-2 #### [facility] CLIA [id number] [address] [place] BLOOD TYPEon 022 ABO A Normal [facility] Comment on above: Order Comment: Speci men Type: BLOOD SPECIMENOrdering Facility: [facility] Address: [address] [place] [address] Performed By: #### C ONABO ####[facility] BANKCLIA [id number] [address] Rh Nom (Bld) Positive Normal [facility] Comment on above: Order Comment: Speci men Type: BLOOD SPECIMENOrdering Facility: [facility] Address: [address] [place], [place] [address] Performed By: #### C ONABO ####[facility] BANKCLIA [id number] [address] [place] HISTORY PHYSICALon HISTORY PHYSICAL HNO ID: [id number] Author: Caryn Wood MD Service: Electrophysiology Author Type: Physician Type: HANDP Filed: 02/03/2022 9:29 AM Note Text: [facility] Electrophysiology (EP) EP Attending Ms. Moise presents [...] Wood MD February 03, 2022 9:28 AM [facility] TYPE AND SCREENon 02-03-2022 ABO A Normal [facility] Comment on above: Order Comment: Speci men Type: BLOOD SPECIMENOrdering Facility: [facility] Address: [address] [place] [address] Performed By: #### T SCR ####[facility] BLO[facility] BANKCLIA [id number] [address] STATES OF [facility] HISTORICAL AB SCR STATUS Negative [facility] Comment on above: Order Comment: Speci men Type: BLOOD SPECIMENOrdering Facility: [facility] Address: [address] [place] [address] Performed By: #### T SCR ####[facility] BLOOD BANKCLIA [id number] [address] [place] Rh Nom (Bld) Positive Normal [facility] Comment on above: Order Comment: Speci men Type: BLOOD SPECIMENOrdering Facility: [facility] Address: [address] [place] [address] Performed By: #### T SCR ####[facility] BLOOD BANKCLIA [id number] [place] [address] [facility] TYPE AND SCREEN EXPIRATION 02/06/2022 23:59 Normal [facility] Comment on above: Order Comment: Speci men Type: BLOOD SPECIMENOrdering Facility: [facility] Address: [address] [place] [address] Performed By: #### T SCR ####[facility] BLOOD BANKCLIA [id number] [place] [address] [facility] CNPNon 01-27-2022 CNPN Telephone (AGCARDPOB ) -------- CHRISTY MOISE ([id number]) 1950 F Date Time Provider Department 01/27/22 CARYN WOOD AGCARDPOB During your visit today, we recorded the following information about you: Driss Joya 01/27/2022 1:34 PM Signed Pre procedure covid test ordered Driss Joya 01/27/2022 1:34 PM Signed Patient is scheduled for a PVAI Ablation on 02/03/[address] Wood. The hospital will call the day before between 2-5pm with your arrival time. Patient should not eat or drink after midnight the day before the procedure. 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 You will stay overnight for observation. Patient should continue to take medications as prescribed the morning of the procedure with just a sip of water but discontinue Multaq 1 week prior to the procedure Covid test on 02/01/22 at 11am at the [facility] [address] [place] [address] Unable to leave message on daughters phone and other numbers listed are disconnected VANESSA Jefferson 01/27/2022 2:00 PM Signed Patient's daughter called [...] Order(s):PRE-PROCEDURE AND PRE-OPERATIVE COVID [SQPOCOVD] Order #: [id number] FUTURE Prescriptions as of 01/27/2022 - ELIQUIS [...] 11/20/2015 Paroxysmal atrial fibrillation (HCC) [I48.0] 08/28/2021 shelter current use of antiarrhythmic drug [Z*08/28/2021 At risk for stroke [Z91.89] 08/28/2021 Anticoagulant long-term use [Z79.01] 08/28/2021 Coronary artery disease involving [place] spencer*08/28/2021 History of coronary artery stent placement [Z95*08/28/2021 Anxiety [F41.9] 01/28/2017 Claudication (HCC) [I73.9] 08/24/2019 Essential hypertension [I10] 01/07/2016 Hiatal hernia [K44.9] 09/04/2017 Irritable bowel syndrome [K58.9] 08/28/2021 Myoclonic disorder [G25.3] 08/28/2021 Neuropathy [G62.9] 08/28/2021 S/P angioplasty with stent [Z95.820] 04/04/2019 Secondary pulmonary hypertension [GCI8182] 08/28/2021 Tobacco abuse [Z72.0] 08/28/2021 Chronic obstructive pulmonary disease (HCC) [J4*01/08/2016 Depressive disorder [F32.A] 01/06/2017 Palpitations [R00.2] Fibromyalgia [M79.7] 09/18/2021 Nonrheumatic mitral (valve) insufficiency [I34.*09/18/2021 Nonrheumatic tricuspid (valve) insufficiency [I*09/18/2021 ST-segment elevation myocardial infarction (ELLYN*04/[address] elevation myocardial infarction (*01/21/2022 Encounter Status:Closed by DRISS JOYA [facility]27/22 [facility] Office Visit (DAVIS FERRIS) -------- CHRISTY MOISE ([id number]) 1950 F Date Time Provider Department 01/21/22 10:20 AM CARYN WOOD During your visit today, we recorded the following information about you: Pulse Respiration Blood pressure Weight 52/minute 18/minute 142/72 65.8 kg Height 1.702 m Caryn Wood MD 01/21/2022 6:30 PM Signed PRIMARY CARE PHYSICIAN: Renee Espinal, [place] [phone] REFERRING PHYSICIAN: Juan C Gaytan MD ([facility]) [address] [place] [phone] Patient Care Team: Adarsh Duggan as PCP - General (Family Practice) Jose Dave as Nurse Practitioner (Cardiology) Juan C Gaytan as Specialty Commercial Technician (Cardiology) CHIEF COMPLAINT: Evaluation of arrhythmia, atrial fibrillation HISTORY OF PRESENT ILLNESS: Ms. Moise is a 71 year old female who presents today with her daughter/family for evaluation of symptomatic paroxysmal atrial fibrillation. She has a history of coronary artery disease, had inferior STEMI in April 2018. She underwent emergent cardiac catheterization at [facility], had PCI/stent to the proximal RCA. In [...] she underwent attempts at electrical cardioversion in [facility] ER in about 06/2021, which were described as unsuccessful --- she was then admitted to the hospital and spontaneously converted back to sinus rhythm. I do not find any other records of electrical cardioversion, either electively or emergently including fairly extensive review of [facility] records here in the [facility] EMR. So I think primarily she [...] long-term use indication: stroke prevention atrial fibrillation ([id number] = 4) - At risk for stroke [id number] = 4 (HTN, age, CAD, female gender) - Atherosclerotic heart disease - COPD (chronic obstructive pulmonary disease) (HCC) - Coronary artery disease involving [place] coronary artery of [place] heart without angina pectoris s/p inferior STEMI 04/2018, s/p PCI/stent to RCA - Dizziness - History of coronary artery stent placement - History of ST elevation myocardial infarction (STEMI) - HLD (hyperlipidemia) - Hypertension - Irritable bowel syndrome - Left atrial enlargement - Lightheadedness - 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 Levy at [facility] - Thyroid nodule - Tobacco abuse PAST SURGICAL HISTORY Procedure Laterality Date - BREAST SURGERY HX Left breast - cyst removal - CHEST X-RAY 12/18/2021 [facility] - ECHO 01/08/2021 [facility] - EVENT MONITOR 03/30/2019 [facility] - HEMORRHOIDECTOMY - HYSTERECTOMY HX - INSERT INTRACORONARY STENT 2017 PCI/stent to RCA; Dr. Levy, [facility] - LEFT HEART CATH,PERCUTANEOUS 05/09/2018 ST Elevation @ [facility] - THYROIDECTOMY TOTAL/COMPLETE SOCIAL HISTORY Social History [...] content not included)... Normal [facility] Basophil percentageon 2021 Basophil percentage 3.3 mg/dL 2.5-4.[address] [facility] Work Phone: Bilirubin [Mass/Vol] 0.30 mg/dL 0.20-1.00 [facility] Work Phone: Comment on above: For patients on eltr ombopag therapy, use of Dimension [place] TBIL is not recommended. Chloride [Moles/Vol] 110 mmol/L 98-107 [facility] Work Phone: Glucose [Mass/Vol] 105 mg/dL 74-106 [facility] Work Phone: Comment on above: Fasting Glucose resu lt from 100 to 125 mg/dL suggests IMPAIRED HOMEOSTASIS per A.D.A. criteria. Potassium [Moles/Vol] 4.1 mmol/L 3.5-5.1 [facility] Work Phone: Protein [Mass/Vol] 6.4 g/dL 6.4-8.2 [facility] Work Phone: Sodium [Moles/Vol] 138 mmol/L 136-145 [facility] Work Phone: Laboratory - Chemistry and C hemistry - challengeon 12-19-2021 ALP [Catalytic activity/Vol] 77 U/L 45-117 [facility] Work Phone: ALT [Catalytic activity/Vol] 15 U/L 13-56 [facility] Work Phone: CO2 [Moles/Vol] 24.0 mmol/L 21.0-32.0 [facility] Work Phone: Globulin (S) [Mass/Vol] 3.2 g/dL 2.2-4.2 [facility] Work Phone: Magnesium [Mass/Vol] 1.9 mg/dL 1.6-2.6 [facility] Work Phone: Urea nitrogen/Creatinine [Mass ratio] 22.2 mg/mg 10-20 [facility] Work Phone: No Panel Informationon 12-19 Estimated Creatinine Clearance Calc 49.50 ml/min [facility] Work Phone: Estimated GFR (MDRD) Amer 71 mL/min >60 [facility] Work Phone: Comment on above: GFR Calc Estimated GFR (MDRD) Non-Af Amer 59 mL/min >60 [facility] Work Phone: Comment on above: Non- GFR Calc Thyroid Stimulating Hormone (TSH) 1.84 uIU/mL 0.358-3.74 [facility] Work Phone: Serum or plasma albumin evelin urement (mass/volume)on 12-19-2021 Albumin [Mass/Vol] 3.2 g/dL 3.2-5.0 [facility] Work Phone: Serum or plasma albumin/glob ulin mass ratioon 12-19-2021 Albumin/Globulin [Mass ratio] 1.0 {ratio} 0.9-2.4 [facility] Work Phone: Serum or plasma calcium evelin urement (mass/volume)on 12-19-2021 Calcium [Mass/Vol] 8.2 mg/dL 8.5-10.1 [facility] Work Phone: Serum or plasma creatinine m easurement (mass/volume)on 12-19-2021 Creatinine [Mass/Vol] 0.99 mg/dL 0.55-1.02 [facility] Work Phone: Comment on above: The validity of the calculated GFR & GFRAA in patients over 70 years has not been determined. Clinical correlation is essential. Serum or plasma urea nitroge n measurement (mass/volume)on 12-19-2021 Urea nitrogen [Mass/Vol] 22 mg/dL 7-18 [facility] Work Phone: Thin prep Papanicolaou smear with manual screeningon 12-19-2021 Thin prep Papanicolaou smear with manual screening 13 U/L 15-37 [facility] Work Phone: Thin prep Papanicolaou smear with manual screening 4 5-15 [facility] Work Phone: Absolute lymphocyte counton 12-18-2021 Lymphocytes Auto (Unsp spec) [#/Vol] 1.50 10*3/uL 0.83-4.51 [facility] Work Phone: Basophil percentageon 2021 Basophils/100 WBC (Bld) 0.6 % 0-1 [facility] Work Phone: Chloride [Moles/Vol] 106 mmol/L 98-107 [facility] Work Phone: [phone] Eosinophils/100 WBC (Bld) 1.6 % 0-5 [facility] Work Phone: Glucose [Mass/Vol] 128 mg/dL 74-106 [facility] Work Phone: [phone] Comment on above: Fasting Glucose resu lt greater than or equal to 126 mg/dL suggests DIABETES MELLITUS per A.D.A. criteria. Neutrophils (Bld) [#/Vol] 6.6 10*3/uL 2.0-7.7 [facility] Work Phone: Neutrophils/100 WBC (Bld) 73.9 % 47-70 [facility] Work Phone: Potassium [Moles/Vol] 4.2 mmol/L 3.5-5.1 [facility] Work Phone: Sodium [Moles/Vol] 137 mmol/L 136-145 [facility] Work Phone: WBC (Bld) [#/Vol] 8.9 10*3/uL 4.4-11.0 [facility] Work Phone: Blood erythrocytes count (nu mber/volume)on 12-18-2021 RBC (Bld) [#/Vol] 4.24 10*6/uL 4.2-5.4 [facility] Work Phone: Blood hemoglobin measurement (mass/volume)on 12-18-2021 Hemoglobin (Bld) [Mass/Vol] 13.3 g/dL 12.0-15.0 [facility] Work Phone: [phone] Blood lymphocytes/100 leukoc yteson 12-18-2021 Lymphocytes/100 WBC (Bld) 16.8 % 19-41 [facility] Work Phone: Blood monocytes/100 leukocyt eson 12-18-2021 Monocytes/100 WBC (Bld) 6.8 % 0-10 [facility] Work Phone: Blood platelet mean volumeon 12-18-2021 Platelet mean volume (Bld) [Entitic vol] 10.4 fL 6.2-12.0 [facility] Work Phone: Determination of erythrocyte mean corpuscular volume (MCV)on 12-18-2021 MCV (RBC) [Entitic vol] 96.2 fL 81-99 [facility] Work Phone: Hematocrit Auto (Bld) [Volum e fraction]on 12-18-2021 Hematocrit (Bld) [Volume fraction] 40.8 % 37-47 [facility] Work Phone: Laboratory - Chemistry and C hemistry - challengeon 12-18-2021 CO2 [Moles/Vol] 27.0 mmol/L 21.0-32.0 [facility] Work Phone: Urea nitrogen/Creatinine [Mass ratio] 14.4 mg/mg 10-20 [facility] Work Phone: Laboratory - Hematology and Cell countson 12-18-2021 Erythrocyte distribution width (RBC) [Entitic vol] 47.0 fL 35.1-43.9 [facility] Work Phone: Erythrocyte distribution width (RBC) [Ratio] 13.2 % 11.6-14.6 [facility] Work Phone: Immature granulocytes/100 WBC (Bld) 0.300 % 0.0-0.9 [facility] Work Phone: Comment on above: IG% - Immature Granu locytes (promyelocytes, myelocytes and metamyelocytes) > 1% indicates that a LEFT SHIFT is Present. MCH (RBC) [Entitic mass] 31.4 pg 27.0-32.0 [facility] Work Phone: Nucleated RBC/100 WBC (Bld) [Ratio] 0 % 0-5 [facility] Work Phone: MCHC Auto (RBC) [Mass/Vol]on 12-18-2021 MCHC (RBC) [Mass/Vol] 32.6 g/dL 32-36 [facility] Work Phone: No Panel Informationon 12-18 Troponin I High Sensitivity 33 pg/mL 3.0-54.0 [facility] Work Phone: Comment on above: Please Note: [place] t Units and Gender Specific Reference Ranges. For more information see Policy Stat Procedure [place] High Sensitivity Troponin (TNIH) and attachments. Troponin I High Sensitivity 31 pg/mL 3.0-54.0 [facility] Work Phone: Comment on above: Please Note: [place] t Units and Gender Specific Reference Ranges. For more information see Policy Stat Procedure [place] High Sensitivity Troponin (TNIH) and attachments. Estimated Creatinine Clearance Calc 39.20 ml/min [facility] Work Phone: Estimated GFR (MDRD) Amer 54 mL/min >60 [facility] Work Phone: Comment on above: GFR Calc Estimated GFR (MDRD) Non-Af Amer 45 mL/min >60 [facility] Work Phone: Comment on above: Non- GFR Calc Platelets bldon 12-18-2021 Platelets (Bld) [#/Vol] 300 10*3/uL 150-450 [facility] Work Phone: Serum or plasma calcium evelin urement (mass/volume)on 12-18-2021 Calcium [Mass/Vol] 9.8 mg/dL 8.5-10.1 [facility] Work Phone: Serum or plasma creatinine m easurement (mass/volume)on 12-18-2021 Creatinine [Mass/Vol] 1.25 mg/dL 0.55-1.02 [facility] Work Phone: Comment on above: The validity of the calculated GFR & GFRAA in patients over 70 years has not been determined. Clinical correlation is essential. Serum or plasma urea nitroge n measurement (mass/volume)on 12-18-2021 Urea nitrogen [Mass/Vol] 18 mg/dL 7-18 [facility] Work Phone: Thin prep Papanicolaou smear with manual screeningon 12-18-2021 Thin prep Papanicolaou smear with manual screening 4 5-15 [facility] Work Phone: CBCon 05-10-2020 Erythrocyte distribution width (RBC) [Ratio] 13.8 % 11.5 - 14.5 % [place] Hematocrit (Bld) [Volume fraction] 36.3 % 35 - 47 % [place] Hemoglobin (Bld) [Mass/Vol] 12.3 g/dL 11.7 - 16 g/dL [place] MCH (RBC) [Entitic mass] 32.0 pg 26 - 34 pg [place] MCHC (RBC) [Mass/Vol] 33.9 % 32 - 36 % [place] MCV (RBC) [Entitic vol] 94.4 fL 79 - 98 fL [place] Platelet mean volume (Bld) [Entitic vol] 8.8 fL 7.4 - 10.4 fL [place] Platelets (Bld) [#/Vol] 261 10*3/uL 140 - 440 10*3/uL [place] RBC (Bld) [#/Vol] 3.84 10*6/uL 3.8 - 5.2 10*6/uL [place] WBC (Bld) [#/Vol] 6.9 10*3/uL 3.6 - 10.7 10*3/uL [place] Comprehensive Metabolic Pane vy 05-10-2020 Albumin [Mass/Vol] 4.1 g/dL 3.5 - 5 g/dL [place] ALP [Catalytic activity/Vol] 66 U/L 38 - 126 U/L [place] ALT [Catalytic activity/Vol] 13 U/L 0 - 34 U/L [place] Comment on above: The ALT test is perf ormed by an updated assay method. Please note that the reference intervals have been changed and are now sex specific. Anion gap [Moles/Vol] 11 mmol/L [place] AST [Catalytic activity/Vol] 22 U/L 15 - 46 U/L [place] Bilirubin Ql (U) 0.4 mg/dL 0.2 - 1.3 mg/dL [place] Calcium [Mass/Vol] 9.0 mg/dL 8.4 - 10. 4 mg/dL [place] Chloride [Moles/Vol] 104 mmol/L 98 - 10 7 mmol/L [place] CO2 [Moles/Vol] 24 mmol/L 22 - 30 mmol/L [place] Creatinine [Mass/Vol] 0.79 mg/dL 0.52 - 1.25 mg/dL [place] EGFR IF NonAfrican [place]alan 76.5 mL/min >60 [place] Comment on above: KDIGO guidelines pro [...] MDRD (S/P/Bld) [Vol rate/Area] 88.6 mL/min/{1.73_m2} >60 [place] Glucose [Mass/Vol] 103 mg/dL High 70 - 100 mg/dL [place] Interpretation and review of laboratory results Abnormal [place] Potassium [Moles/Vol] 3.9 mmol/L 3.5 - 5.1 mmol/L [place] Protein [Mass/Vol] 6.7 g/dL 6.3 - 8.2 g/dL [place] Sodium [Moles/Vol] 139 mmol/L 135 - 145 mmol/L [place] Urea nitrogen [Mass/Vol] 21 mg/dL High 7 - 20 mg/dL [place] Otheron 05-10-2020 Test Performed by [facility], [address] , [address] Vitamin B12on 05-10-2020 Cobalamin (Vitamin B12) [Mass/Vol] 664 pg/mL 239 - 931 pg/mL [place] Test Performed by [facility], [address] , [address] Vitamin D 25 Hydroxyon 05-10 Interpretation and review of laboratory results Abnormal [place] Vit D, 25-Hydroxy 28 ng/mL Low 30 - 100 ng/mL [place] Comment on above: Therapy is based on measurement of Total 25-OHD with the following classification levels: Less than 20 ng/mL: Indicative of Vit D deficiency 20-30 ng/mL: Suggests Vit D insufficiency Optimal: Greater than or equal to 30 ng/mL Test performed by [employer] Comp[employer] Immunoassay, measuring Total Vitamin D, not individual fractions. Test Performed by [facility], [address] [place], [place], [place] [address] [place] Lipid Panelon 03-15-2020 Cholesterol [Mass/Vol] 182 mg/dL <200 [place] Cholesterol in HDL [Mass/Vol] 44 mg/dL 40 - 60 mg/dL [place] Cholesterol in LDL [Mass/Vol] 115 mg/dL Abnormal <100 [place] Cholesterol.total/Ch olesterol in HDL [Mass ratio] 4 {ratio} [place] Comment on above: Ref Range: < 3 Low Risk for CHD 3-6 Mod Risk for CHD > 6 High Risk for CHD Interpretation and review of laboratory results Abnormal [place] Triglyceride [Mass/Vol] 117 mg/dL <150 [facility], [place] Test Performed by [facility], [address] , [place], [place] [address] [facility], REDD COVID PCR, SCREENING CONGREG Maia 03-07-2020 CORONAVIRUS 2019,PCR NOT DETECTED Normal Not Detected [facility] Comment on above: Result Comment: Nega tive [...] is terminated or revoked sooner. [facility] ([facility]) is certified under CLIA-88 as qualified to perform high complexity testing. This tests analytical performance characteristics have been determined by [facility]. Testing is performed at [facility] is located at [address] [place] [address] (CLIA License #[id number], CAP #[id number]). Performed By: #### C VCLA #### [facility] [address] [place] [address] COVID PCR, SCREENING CONGREG ATEon 03-06-2020 Lab Specimen Source Nasal, Nasopharyngeal Normal [facility] Comment on above: Performed By: #### C VCSHELBIE #### [facility] [address] [place] [address] CBCon 01-31-2020 Erythrocyte distribution width (RBC) [Ratio] 13.6 % 11.5 - 14.5 % [place] Hematocrit (Bld) [Volume fraction] 40.2 % 35 - 47 % [place] Hemoglobin (Bld) [Mass/Vol] 13.3 g/dL 11.7 - 16 g/dL [place] MCH (RBC) [Entitic mass] 31.5 pg 26 - 34 pg [place] MCHC (RBC) [Mass/Vol] 32.9 % 32 - 36 % [place] MCV (RBC) [Entitic vol] 95.6 fL 79 - 98 fL [place] Platelet mean volume (Bld) [Entitic vol] 9.1 fL 7.4 - 10.4 fL [place] Platelets (Bld) [#/Vol] 259 10*3/uL 140 - 440 10*3/uL [place] RBC (Bld) [#/Vol] 4.21 10*6/uL 3.8 - 5.2 10*6/uL [place] WBC (Bld) [#/Vol] 7.9 10*3/uL 3.6 - 10.7 10*3/uL [place] Test Performed by [facility], [address] , [place], [place] [id number] [place] [address] Comprehensive Metabolic Pane vy 01-31-2020 Albumin [Mass/Vol] 4.3 g/dL 3.5 - 5 g/dL [place] ALP [Catalytic activity/Vol] 77 U/L 38 - 126 U/L [place] ALT [Catalytic activity/Vol] 11 U/L 0 - 34 U/L [place] Comment on above: The ALT test is perf ormed by an updated assay method. Please note that the reference intervals have been changed and are now sex specific. Anion gap [Moles/Vol] 9 mmol/L [place] AST [Catalytic activity/Vol] 19 U/L 15 - 46 U/L [place] Bilirubin Ql (U) 0.4 mg/dL 0.2 - 1.3 mg/dL [place] Calcium [Mass/Vol] 9.6 mg/dL 8.4 - 10. 4 mg/dL [place] Chloride [Moles/Vol] 105 mmol/L 98 - 10 7 mmol/L [place] CO2 [Moles/Vol] 25 mmol/L 22 - 30 mmol/L [place] Creatinine [Mass/Vol] 0.66 mg/dL 0.52 - 1.25 mg/dL [place] EGFR IF NonAfrican [place]alan >90.0 >60 mL/min [place] Comment on above: KDIGO guidelines pro [...] MDRD (S/P/Bld) [Vol rate/Area] mL/min/{1.73_m2} >60 mL/min [place] Glucose [Mass/Vol] 88 mg/dL 70 - 100 mg/dL [place] Potassium [Moles/Vol] 4.6 mmol/L 3.5 - 5.1 mmol/L [place] Protein [Mass/Vol] 7.0 g/dL 6.3 - 8.2 g/dL [place] Sodium [Moles/Vol] 139 mmol/L 135 - 145 mmol/L [place] Urea nitrogen [Mass/Vol] 15 mg/dL 7 - 20 mg/dL [place] Test Performed by [facility], [address] , [address] TSH without Reflexon 020 TSH Qn 1.414 u[IU]/mL 0.465 - 4.68 u[IU]/mL [place] Test Performed by [facility], [address] , [address] Vitamin B12on 01-31-2020 Cobalamin (Vitamin B12) [Mass/Vol] 279 pg/mL 239 - 931 pg/mL [place] Test Performed by [facility], [address] , [address] Vitamin D 25 Hydroxyon 01-30 Interpretation and review of laboratory results Abnormal [place] Vit D, 25-Hydroxy 15 ng/mL Low 30 - 100 ng/mL [place] Comment on above: Therapy is based on measurement of Total 25-OHD with the following classification levels: Less than 20 ng/mL: Indicative of Vit D deficiency 20-30 ng/mL: Suggests Vit D insufficiency Optimal: Greater than or equal to 30 ng/mL Test performed by [employer] Competitive Immunoassay, measuring Total Vitamin D, not individual fractions. Test Performed by [facility], [address] [place], [place] [id number] [place] [address] VL ARTERIAL PVR LOWER WO EXE RCISEOrdered By: Nelida Santana on 09-10-2019 [facility] Multilevel Lower Extremity Arterial Evaluation Report Ordering Physician: Nelida Santana D.o. Reel Fed Printer: Nadege Barros Interpreting Physician: Luis Aranda Location: [facility] Indications: Claudication. Patient declined exercise due to her COPD, SOB, and leg fatigue Conclusions 1. PADMAJA, TBI, PVR waveforms of the right leg normal at rest. 2. PADMAJA, TBI, PVR waveforms of the left leg normal at rest. History: Risk factors: Current tobacco use. Hypertension. No diabetes. Non-obese. Patient has pain from her hips down to her ankles continuously. Her bilateral leg pain is not dependent on walking. Patient also had a venous insufficiency test today. Study data: Lower extremity multilevel physiologic evaluation. Pressure measurement and pulse volume recording. Location: Vascular laboratory. Objective: Diagnostic evaluation. Procedure: A vascular evaluation was performed with the patient in the supine position. Images were obtained using a [employer] vascular ultrasound machine. Arterial pressure indices: + + -----+ + +Location +Pressure (REST)*+Index (REST)+ + + -----+ + +R brachial +174 + + + + -----+ + +R DP +179 +1.03 + + + -----+ + +R PT +183 +1.05 + + + -----+ + +R great toe+145 +0.83 + + + -----+ + +L brachial +167 + + + + -----+ + +L DP +183 +1.05 + + + -----+ + +L PT +192 +1.10 + + + -----+ + +L great toe+176 +1.01 + + + -----+ + Prepared and electronically signed by Luis Aranda 09/10/2019 16:51 [facility] Work Phone: [facility] Incoming Cardiology Results From Param/Charan - 09/10/2019 4:51 PM EST [facility] Multilevel Lower Extremity Arterial Evaluation Report Ordering Physician: Nelida Santana D.o. Reel Fed Printer: Nadege Barros Interpreting Physician: Luis Aranda Location: [facility] Indications: Claudication. Patient declined exercise due to her COPD, SOB, and leg fatigue Conclusions 1. PADMAJA, TBI, PVR waveforms of the right leg normal at rest. 2. PADMAJA, TBI, PVR waveforms of the left leg normal at rest. History: Risk factors: Current tobacco use. Hypertension. No diabetes. Non-obese. Patient has pain from her hips down to her ankles continuously. Her bilateral leg pain is not dependent on walking. Patient also had a venous insufficiency test today. Study data: Lower extremity multilevel physiologic evaluation. Pressure measurement and pulse volume recording. Location: Vascular laboratory. Objective: Diagnostic evaluation. Procedure: A vascular evaluation was performed with the patient in the supine position. Images were obtained using a [employer] vascular ultrasound machine. Arterial pressure indices: + + -----+ + +Location +Pressure (REST)*+Index (REST)+ + + -----+ + +R brachial +174 + + + + -----+ + +R DP +179 +1.03 + + + -----+ + +R PT +183 +1.05 + + + -----+ + +R great toe+145 +0.83 + + + -----+ + +L brachial +167 + + + + -----+ + +L DP +183 +1.05 + + + -----+ + +L PT +192 +1.10 + + + -----+ + +L great toe+176 +1.01 + + + -----+ + Prepared and electronically signed by Luis Aranda 09/10/2019 16:51 [facility] Work Phone: VL VENOUS REFLUX US LOWER EX T BILATERALOrdered By: Nelida Santana on 09-10-2019 [facility] Bilateral Lower Extremity Venous Insufficiency Duplex Report Ordering Physician: Nelida Santana D.o. Reel Fed Printer: Nadege Barros Interpreting Physician: Luis Aranda Location: [facility] Indications: Venous insufficiency. Varicose veins. Pain right entire leg. Pain left entire leg. Conclusions 1. There is no evidence of acute deep or superficial venous thrombosis noted in the right lower extremity. 2. There is no evidence of acute deep or superficial venous thrombosis noted in the left lower extremity. 3. Reflux noted in the right small saphenous vein. 4. Reflux noted in the left small saphenous vein. History: Risk factors: Current tobacco use. Hypertension. No diabetes. Non-obese. Study data: Bilateral lower extremity venous insufficiency exam. Grayscale 2D imaging, color Doppler imaging, and spectral Doppler analysis. Location: Vascular laboratory. Objective: Diagnostic evaluation. Procedure: A vascular evaluation was performed with the patient in the supine position. Images were obtained using a [employer] E9 vascular ultrasound machine. Venous flow and imaging: + --+-------+ + +Location +Overall+Properties + + --+-------+ + +R CFV +Patent +Normal phasicity; spontaneous; + + + +normal augmentation; compressible + + --+-------+ + +R saphenofemoral junction+Patent +Compressible + + --+-------+ + +R profunda femoral +Patent +Normal phasicity; spontaneous; + + + +normal augmentation + + --+-------+ + +R FV - prox. +Patent +Compressible + + --+-------+ + +R FV - mid +Patent +Normal phasicity; spontaneous; + + + +normal augmentation; compressible + + --+-------+ + +R FV - distal +Patent +Compressible + + --+-------+ + +R popliteal +Patent +Normal phasicity; spontaneous; + + + +normal augmentation; compressible + + --+-------+ + +R gastrocnemius +Patent +Compressible + + --+-------+ + +R PTV +Patent +Compressible + + --+-------+ + +R peroneal +Patent +Compressible + + --+-------+ + +R soleol +Patent +Compressible + + --+-------+ + +R GSV +Patent +Compressible + + --+-------+ + +L CFV +Patent +Normal phasicity; spontaneous; + + + +normal augmentation; compressible + + --+-------+ + +L saphenofemoral junction+Patent +Compressible + + --+-------+ + +L profunda femoral +Patent +Normal phasicity; spontaneous; + + + +normal augmentation + + --+-------+ + +L FV - prox. +Patent +Compressible + + --+-------+ + +L FV - mid +Patent +Normal phasicity; spontaneous; + + + +normal augmentation; compressible + + --+-------+ ------- (more content not included)... [facility] ([facility] Work Phone: [place] Incoming Cardiology Results From Param/Charan - 09/10/2019 4:50 PM EST [facility] Bilateral Lower Extremity Venous Insufficiency Duplex Report Ordering Physician: Nelida Santana D.o. Reel Fed Printer: Nadege Barros Interpreting Physician: Luis Aranda Location: [facility] Indications: Venous insufficiency. Varicose veins. Pain right entire leg. Pain left entire leg. Conclusions 1. There is no evidence of acute deep or superficial venous thrombosis noted in the right lower extremity. 2. There is no evidence of acute deep or superficial venous thrombosis noted in the left lower extremity. 3. Reflux noted in the right small saphenous vein. 4. Reflux noted in the left small saphenous vein. History: Risk factors: Current tobacco use. Hypertension. No diabetes. Non-obese. Study data: Bilateral lower extremity venous insufficiency exam. Grayscale 2D imaging, color Doppler imaging, and spectral Doppler analysis. Location: Vascular laboratory. Objective: Diagnostic evaluation. Procedure: A vascular evaluation was performed with the patient in the supine position. Images were obtained using a [employer] E9 vascular ultrasound machine. Venous flow and imaging: + --+-------+ + +Location +Overall+Properties + + --+-------+ + +R CFV +Patent +Normal phasicity; spontaneous; + + + +normal augmentation; compressible + + --+-------+ + +R saphenofemoral junction+Patent +Compressible + + --+-------+ + +R profunda femoral +Patent +Normal phasicity; spontaneous; + + + +normal augmentation + + --+-------+ + +R FV - prox. +Patent +Compressible + + --+-------+ + +R FV - mid +Patent +Normal phasicity; spontaneous; + + + +normal augmentation; compressible + + --+-------+ + +R FV - distal +Patent +Compressible + + --+-------+ + +R popliteal +Patent +Normal phasicity; spontaneous; + + + +normal augmentation; compressible + + --+-------+ + +R gastrocnemius +Patent +Compressible + + --+-------+ + +R PTV +Patent +Compressible + + --+-------+ + +R peroneal +Patent +Compressible + + --+-------+ + +R soleol +Patent +Compressible + + --+-------+ + +R GSV +Patent +Compressible + + --+-------+ + +L CFV +Patent +Normal phasicity; spontaneous; + + + +normal augmentation; compressible + + --+-------+ + +L saphenofemoral junction+Patent +Compressible + + --+-------+ + +L profunda femoral +Patent +Normal phasicity; spontaneous; + + + +normal augmentation + + --+-------+ + +L FV - prox. +Patent +Compressible + + --+-------+ + +L FV - mid +Patent +Normal phasicity; spontaneous; + + + +normal augmentation; compressible + + --+-------+ + +L FV - distal +Patent +Compressible + + --+-------+ + +L popliteal +Patent +Normal phasicity; spontaneous; + + + +normal augmentation; compressible + + --+-------+ + +L gastrocnemius +Patent +Compressible + + --+-------+ + +L PTV +Patent +Compressible + + --+-------+ + +L peroneal +Patent +Compressible + + --+-------+ + +L soleol +Patent +Compressible + + (more content not included)... [facility] Work Phone: ACT,Whole Bloodon 05-10-2018 ACT,Whole Blood 258 s High 90-[address] [facility] Comment on above: Result Comment: ACTB Performed by [employer] EliteCLIA ID: [id number], OHACT testing is not intended for patients taking aprotonin,patients with hematocrits of <20% or >55%, patients usingother types of anticoagulation medications, and patients withLupus Anticoagulant. Performed By: #### H A1C2, LIPD2, TROPN, APTT, TSH5, CKMBS, [id number] ####[id number] [place] [address] CKMB Fractionationon 018 CK.MB mass conc 6.6 ng/mL High 0.0-2.4 [facility] Comment on above: Result Comment: Both the CKMB and the Relative Index must be abnormal forclinical significance. Performed By: #### H A1C2, LIPD2, TROPN, APTT, TSH5, CKMBS, [id number] ####[id number] [place] [address] Relative Index 4.2 High 0.0-3.0 [facility] Comment on above: Performed By: #### H A1C2, LIPD2, TROPN, APTT, TSH5, CKMBS, [id number] ####[id number] [place], [place] CKMB Screenon 05-10-2018 CK enzyme act/vol 158 U/L Normal 30-170 [facility] Comment on above: Performed By: #### H A1C2, LIPD2, TROPN, APTT, TSH5, CKMBS, [id number] ####[address] [place], [place] Comp Metabolic Panelon 05-10 ALP enzyme act/vol 78 U/L Normal 38-126 [facility] Comment on above: Performed By: #### H A1C2, LIPD2, TROPN, APTT, TSH5, CKMBS, [id number] ####[address] [place], [place] ALT enzyme act/vol 21 U/L Normal 13-69 [facility] Comment on above: Performed By: #### H A1C2, LIPD2, TROPN, APTT, TSH5, CKMBS, [id number] ####[address] [place], [place] Anion gap 3 molar conc 8 Normal [facility] Comment on above: Performed By: #### H A1C2, LIPD2, TROPN, APTT, TSH5, CKMBS, [id number] ####[address] [place], [place] AST enzyme act/vol 36 U/L Normal 15-46 [facility] Comment on above: Performed By: #### H A1C2, LIPD2, TROPN, APTT, TSH5, CKMBS, [id number] ####[address] [place], [place] Calcium mass conc 8.9 mg/dL Normal 8.4-10.4 [facility] Comment on above: Performed By: #### H A1C2, LIPD2, TROPN, APTT, TSH5, CKMBS, [id number] ####[address] [place] [address] CO2 molar conc 22 mmol/L Normal 22-30 [facility] Comment on above: Performed By: #### H A1C2, LIPD2, TROPN, APTT, TSH5, CKMBS, [id number] ####[address] [place] [address] Glucose mass conc 102 mg/dL High 70-100 [facility] Comment on above: Performed By: #### H A1C2, LIPD2, TROPN, APTT, TSH5, CKMBS, [id number] ####[address] [place] [address] Protein mass conc 6.8 g/dL Normal 6.3-8.2 [facility] Comment on above: Performed By: #### H A1C2, LIPD2, TROPN, APTT, TSH5, CKMBS, [id number] ####[address] [place] [address] Urea nitrogen mass conc 13 mg/dL Normal 7-20 [facility] Comment on above: Performed By: #### H A1C2, LIPD2, TROPN, APTT, TSH5, CKMBS, [id number] ####[address] [place] [address] Bilirubin mass conc 0.5 mg/dL Normal 0.2-1.3 [facility] Comment on above: Performed By: #### H A1C2, LIPD2, TROPN, APTT, TSH5, CKMBS, [id number] ####[address] [place] [address] Creatinine mass conc 0.75 mg/dL Normal 0.52-1.25 [facility] Comment on above: Performed By: #### H A1C2, LIPD2, TROPN, APTT, TSH5, CKMBS, [id number] ####[address] [place] [address] GFR/1.73 sq M predicted among blacks MDRD vol rate/area (S/P/Bld) mL/min/{1.73_m2} Normal >60 [facility] Comment on above: Performed By: #### H A1C2, LIPD2, TROPN, APTT, TSH5, CKMBS, [id number] ####[id number] [place] [address] GFR/1.73 sq M predicted among non-blacks MDRD vol rate/area (S/P/Bld) mL/min/{1.73_m2} Normal >60 [facility] [facility] Comment on above: Result Comment: Sour ce- MDRD equation with creatinine calibration to IDMS(NKDEP) eGFR not recommended for drug dose adjustment Performed By: #### H A1C2, LIPD2, TROPN, APTT, TSH5, CKMBS, [id number] ####[employer] [place] [address] Albumin mass conc 4.2 g/dL Normal 3.5-5.[address] [facility] Comment on above: Performed By: #### H A1C2, LIPD2, TROPN, APTT, TSH5, CKMBS, [id number] ####[employer] [place] [address] Potassium molar conc 4.0 mmol/L Normal 3.5-5.1 [facility] Comment on above: Performed By: #### H A1C2, LIPD2, TROPN, APTT, TSH5, CKMBS, [id number] ####[employer] [address] [place] [address] Sodium molar conc 141 mmol/L Normal 137-[address] [facility] Comment on above: Performed By: #### H A1C2, LIPD2, TROPN, APTT, TSH5, CKMBS, [id number] ####[employer] [address] [place] [address] Chloride molar conc 111 mmol/L High 98-107 [facility] Comment on above: Performed By: #### H A1C2, LIPD2, TROPN, APTT, TSH5, CKMBS, [id number] ####[address] Hemogram w/ Autodiffon 05-10 Abs Baso Cnt 0.1 10*3/uL Normal 0.0-0.2 [facility] Comment on above: Performed By: #### H A1C2, LIPD2, TROPN, APTT, TSH5, CKMBS, [id number] ####[address] Abs Neutrophile Cnt 5.0 10*3/uL Normal 1.8-7.0 [facility] Comment on above: Performed By: #### H A1C2, LIPD2, TROPN, APTT, TSH5, CKMBS, MBF33 ####[address] Basophils/100 WBC Auto (Bld) 0.7 % Normal 0.0-2.0 [facility] Comment on above: Performed By: #### H A1C2, LIPD2, TROPN, APTT, TSH5, CKMBS, MBF33 ####[address] Eosinophils Auto #/vol (Bld) 0.2 10*3/uL Normal 0.0-0.5 [facility] Comment on above: Performed By: #### H A1C2, LIPD2, TROPN, APTT, TSH5, CKMBS, MBF33 ####[address] Eosinophils/100 WBC Auto (Bld) 2.5 % Normal 1.0-6.0 [facility] Comment on above: Performed By: #### H A1C2, LIPD2, TROPN, APTT, TSH5, CKMBS, MBF33 ####[address] Erythrocyte distribution width Auto Ratio (RBC) 13.6 % Normal 11.5-14.5 [facility] Comment on above: Performed By: #### H A1C2, LIPD2, TROPN, APTT, TSH5, CKMBS, MBF33 ####[address] Granulocytes/100 WBC (Bld) 64.9 % Normal 40.0-80.0 [facility] Comment on above: Performed By: #### H A1C2, LIPD2, TROPN, APTT, TSH5, CKMBS, MBF33 ####[address] Hematocrit Auto Volume Fraction (Bld) 37.2 % Normal 35.0-47.0 [facility] Comment on above: Performed By: #### H A1C2, LIPD2, TROPN, APTT, TSH5, CKMBS, MBF33 ####[address] Hemoglobin mass conc (Bld) 12.5 g/dL Normal 11.7-16.0 [facility] Comment on above: Performed By: #### H A1C2, LIPD2, TROPN, APTT, TSH5, CKMBS, MBF33 ####[address] Lymphocytes Auto #/vol (Bld) 1.8 10*3/uL Normal 1.0-4.3 [facility] Comment on above: Performed By: #### H A1C2, LIPD2, TROPN, APTT, TSH5, CKMBS, MBF33 ####[address] Lymphocytes/100 WBC Auto (Bld) 23.3 % Normal 20.0-40.0 [facility] Comment on above: Performed By: #### H A1C2, LIPD2, TROPN, APTT, TSH5, CKMBS, MBF33 ####[address] MCH Auto Entitic mass (RBC) 31.4 pg Normal 26.0-34.0 [facility] Comment on above: Performed By: #### H A1C2, LIPD2, TROPN, APTT, TSH5, CKMBS, MBF33 ####[address] MCHC Auto mass conc (RBC) 33.7 % Normal 32.0-36.0 [facility] Comment on above: Performed By: #### H A1C2, LIPD2, TROPN, APTT, TSH5, CKMBS, MBF33 ####[address] MCV Auto Entitic volume (RBC) 93.3 fL Normal 79.0-98.0 [facility] Comment on above: Performed By: #### H A1C2, LIPD2, TROPN, APTT, TSH5, CKMBS, MBF33 ####[address] Monocytes Auto #/vol (Bld) 0.7 10*3/uL Normal 0.0-0.8 [facility] Comment on above: Performed By: #### H A1C2, LIPD2, TROPN, APTT, TSH5, CKMBS, MBF33 ####[address] Monocytes/100 WBC Auto (Bld) 8.6 % Normal 2.0-10.0 [facility] Comment on above: Performed By: #### H A1C2, LIPD2, TROPN, APTT, TSH5, CKMBS, MBF33 ####[address] Platelet mean volume Auto Entitic volume (Bld) 8.4 fL Normal 7.4-10.4 [facility] Comment on above: Performed By: #### H A1C2, LIPD2, TROPN, APTT, TSH5, CKMBS, MBF33 ####[address] Platelets Auto #/vol (Bld) 266 10*3/uL Normal 140-440 [facility] Comment on above: Performed By: #### H A1C2, LIPD2, TROPN, APTT, TSH5, CKMBS, MBF33 ####[address] RBC Auto #/vol (Bld) 3.98 10*6/uL Normal 3.80-5.20 [facility] Comment on above: Performed By: #### H A1C2, LIPD2, TROPN, APTT, TSH5, CKMBS, MBF33 ####[address] WBC Auto #/vol (Bld) 7.7 10*3/uL Normal 3.6-10.7 [facility] Comment on above: Performed By: #### H A1C2, LIPD2, TROPN, APTT, TSH5, CKMBS, MBF33 ####[address] Magnesiumon 05-10-2018 Magnesium mass conc 2.1 mg/dL Normal 1.6-2.3 [facility] Comment on above: Performed By: #### H A1C2, LIPD2, TROPN, APTT, TSH5, CKMBS, [id number] ####[address] CKMB Fractionationon 018 CK.MB mass conc 10.1 ng/mL High 0.0-2.4 [facility] Comment on above: Result Comment: Both the CKMB and the Relative Index must be abnormal forclinical significance. Performed By: #### H A1C2, LIPD2, TROPN, APTT, TSH5, CKMBS, [id number] ####[address] Relative Index 5.0 High 0.0-3.0 [facility] Comment on above: Performed By: #### H A1C2, LIPD2, TROPN, APTT, TSH5, CKMBS, MBF33 ####[address] CK.MB mass conc 21.4 ng/mL High 0.0-2.[address] [facility] Comment on above: Result Comment: Both the CKMB and the Relative Index must be abnormal forclinical significance. Performed By: #### H A1C2, LIPD2, TROPN, APTT, TSH5, CKMBS, [id number] ####[address] Relative Index 8.0 High 0.0-3.0 [facility] Comment on above: Performed By: #### H A1C2, LIPD2, TROPN, APTT, TSH5, CKMBS, MBF33 ####[address] CK.MB mass conc 19.1 ng/mL High 0.0-2.4 [facility] Comment on above: Result Comment: Both the CKMB and the Relative Index must be abnormal forclinical significance. Performed By: #### H A1C2, LIPD2, TROPN, APTT, TSH5, CKMBS, [id number] ####[address] Relative Index 8.3 High 0.0-3.0 [facility] Comment on above: Performed By: #### H A1C2, LIPD2, TROPN, APTT, TSH5, CKMBS, MBF33 ####[address] CKMB Screenon 05-09-2018 CK enzyme act/vol 201 U/L High 30-170 [facility] Comment on above: Performed By: #### H A1C2, LIPD2, TROPN, APTT, TSH5, CKMBS, [id number] ####[address] CK enzyme act/vol 268 U/L High 30-170 [facility] Comment on above: Performed By: #### H A1C2, LIPD2, TROPN, APTT, TSH5, CKMBS, MBF33 ####[address] CK enzyme act/vol 230 U/L High 30-170 [facility] Comment on above: Performed By: #### H A1C2, LIPD2, TROPN, APTT, TSH5, CKMBS, MBF33 ####[address] [place], [place] Comp Metabolic Panelon 05-09 Calcium mass conc 9.1 mg/dL Normal 8.4-10.4 [facility] Comment on above: Performed By: #### H A1C2, LIPD2, TROPN, APTT, TSH5, CKMBS, [id number] ####[address] [place], [place] ALP enzyme act/vol 71 U/L Normal 38-126 [facility] Comment on above: Performed By: #### H A1C2, LIPD2, TROPN, APTT, TSH5, CKMBS, [id number] ####[address] ALT enzyme act/vol 26 U/L Normal 13-69 [facility] Comment on above: Performed By: #### H A1C2, LIPD2, TROPN, APTT, TSH5, CKMBS, MBF33 ####[address] [address] [place], [place] Anion gap 3 molar conc 8 Normal [facility] Comment on above: Performed By: #### H A1C2, LIPD2, TROPN, APTT, TSH5, CKMBS, MBF33 ####[address] [place], [place] AST enzyme act/vol 42 U/L Normal 15-46 [facility] Comment on above: Performed By: #### H A1C2, LIPD2, TROPN, APTT, TSH5, CKMBS, [id number] ####[address] [place], [place] Bilirubin mass conc 0.4 mg/dL Normal 0.2-1.3 [facility] Comment on above: Performed By: #### H A1C2, LIPD2, TROPN, APTT, TSH5, CKMBS, [id number] ####[address] [place], [place] CO2 molar conc 23 mmol/L Normal 22-30 [facility] Comment on above: Performed By: #### H A1C2, LIPD2, TROPN, APTT, TSH5, CKMBS, [id number] ####[address] [place], [place] Glucose mass conc 111 mg/dL High 70-100 [facility] Comment on above: Performed By: #### H A1C2, LIPD2, TROPN, APTT, TSH5, CKMBS, MBF33 ####[address] [address] [place], [place] Protein mass conc 6.3 g/dL Normal 6.3-8.2 [facility] Comment on above: Performed By: #### H A1C2, LIPD2, TROPN, APTT, TSH5, CKMBS, MBF33 ####[address] [address] [place], [place] Urea nitrogen mass conc 11 mg/dL Normal 7-20 [facility] Comment on above: Performed By: #### H A1C2, LIPD2, TROPN, APTT, TSH5, CKMBS, [id number] ####[address] [address] [place], [place] Creatinine mass conc 0.74 mg/dL Normal 0.52-1.25 [facility] Comment on above: Performed By: #### H A1C2, LIPD2, TROPN, APTT, TSH5, CKMBS, [id number] ####[address] [place], [place] GFR/1.73 sq M predicted among blacks MDRD vol rate/area (S/P/Bld) mL/min/{1.73_m2} Normal >60 [facility] Comment on above: Performed By: #### H A1C2, LIPD2, TROPN, APTT, TSH5, CKMBS, [id number] ####[address] [address] [place], [place] GFR/1.73 sq M predicted among non-blacks MDRD vol rate/area (S/P/Bld) mL/min/{1.73_m2} Normal >60 [facility] Comment on above: Result Comment: Sour ce- MDRD equation with creatinine calibration to IDMS(NKDEP) eGFR not recommended for drug dose adjustment Performed By: #### H A1C2, LIPD2, TROPN, APTT, TSH5, CKMBS, [id number] ####[address] [place], [place] Potassium molar conc 4.0 mmol/L Normal 3.5-5.1 [facility] Comment on above: Performed By: #### H A1C2, LIPD2, TROPN, APTT, TSH5, CKMBS, MBF33 ####[address] [place], [place] Albumin mass conc 3.9 g/dL Normal 3.5-5.0 [facility] Comment on above: Performed By: #### H A1C2, LIPD2, TROPN, APTT, TSH5, CKMBS, MBF33 ####[address] [place] [address] Chloride molar conc 108 mmol/L High 98-107 [facility] Comment on above: Performed By: #### H A1C2, LIPD2, TROPN, APTT, TSH5, CKMBS, MBF33 ####[address] [address] Sodium molar conc 139 mmol/L Normal 137-145 [facility] Comment on above: Performed By: #### H A1C2, LIPD2, TROPN, APTT, TSH5, CKMBS, MBF33 ####[address] [place] [address] Drugs of Abuseon 05-09-2018 Phencyclidine (PCP), Ur Negative Normal [facility] Comment on above: Result Comment: The [...] non-forensic procedures. Performed By: #### D RGA4 ####[facility] [id number] [facility] [place] Methadone, Ur Negative Normal [facility] Comment on above: Performed By: #### D RGA4 ####[facility] [id number] [facility] [place] [place] Opiates, Ur Positive Normal [facility] Comment on above: Performed By: #### D RGA4 ####[facility] [id number] [facility] [place] [place] Cocaine, Ur Negative Normal [facility] Comment on above: Performed By: #### D RGA4 ####[facility] [id number] [facility] [place] [place] Amphetamines, Ur Negative Normal [facility] Comment on above: Performed By: #### D RGA4 ####[facility] [id number] [facility] [place] [place] Barbiturates, Ur Negative Normal [facility] Comment on above: Performed By: #### D RGA4 ####[facility] [id number] [facility] [place] [place] Benzodiazepines, Ur Positive Normal [facility] Comment on above: Performed By: #### D RGA4 ####[facility] [id number] [facility] [place] [place] Oxycodone/Oxymorphin e,Ur Negative Normal [facility] Comment on above: Performed By: #### D RGA4 ####[facility] [id number] [facility] [place] Echo Complete w/wo Contrasto n 05-09-2018 Echo Complete w/wo Contrast Patient Name: JONATHAN MOISE Ultrasound Exam Date/Time 05/09/2018 10:59:39 EDT Exam Echo Complete w/wo Contrast Ordering Physician ANDREA VALADEZ Accession Number [id number] Reason For Exam STEMI Report TRANSTHORACIC ECHOCARDIOGRAM PATIENT: Jonathan Moise STUDY DATE: 05/09/2018 : 1950 AGE: 67 HT/WT: 167.6 cm (66 70.3 kg (154.7 in) lb) GENDER: F BP: 144 / 72 LOCATION: [facility] PATIENT Inpatient [facility] STATUS: *ORDERING PHYSICIAN: * Andrea Valadez *READING PHYSICIAN: * Casey *BUILDING ASSOCIATE: * Thais Bell MD RDMS,AB,RDCS,AE, PE, RVT,VT --- --- INDICATIONS: STEMI. --- --- CONCLUSIONS SUMMARY: 1. Left ventricle: Systolic [...] 6. Pulmonic valve: Structurally normal valve. --- --- STUDY DATA: Complete transthoracic echocardiogram. Procedure: Image quality was poor. Intravenous imaging enhancement (Definity) was administered to opacify the chamber. Definity lot #: [id number]. M-mode, complete 2D, complete spectral Doppler, and color flow Doppler images were acquired and archived for permanent storage and are available for subsequent review. Study status: Routine. Patient status: Inpatient. --- --- FINDINGS LEFT VENTRICLE: Average LV Global [...] by greater than 50% with inspiration. --- --- Measurements Left ventricle Value Reference Longitudinal [...] 05/09/2018 1:27 pm Signed by: CASEY BELL [facility] Hemogram w/ Autodiffon 05-09 Abs Baso Cnt 0.1 10*3/uL Normal 0.0-0.2 [facility] Comment on above: Performed By: #### H EMDF, CKMBS, CMP3, MG3, TROPN, [id number] ####[address] [address] Abs Neutrophile Cnt 6.4 10*3/uL Normal 1.8-7.0 [facility] Comment on above: Performed By: #### H EMDF, CKMBS, CMP3, MG3, TROPN, MBF33 ####[address] [address] Basophils/100 WBC Auto (Bld) 0.9 % Normal 0.0-2.0 [facility] Comment on above: Performed By: #### H EMDF, CKMBS, CMP3, MG3, TROPN, MBF33 ####[address] Eosinophils Auto #/vol (Bld) 0.2 10*3/uL Normal 0.0-0.5 [facility] Comment on above: Performed By: #### H EMDF, CKMBS, CMP3, MG3, TROPN, MBF33 ####[address] Eosinophils/100 WBC Auto (Bld) 1.8 % Normal 1.0-6.0 [facility] Comment on above: Performed By: #### H EMDF, CKMBS, CMP3, MG3, TROPN, MBF33 ####[address] [address] Erythrocyte distribution width Auto Ratio (RBC) 13.7 % Normal 11.5-14.5 [facility] Comment on above: Performed By: #### H EMDF, CKMBS, CMP3, MG3, TROPN, MBF33 ####[address] [address] Granulocytes/100 WBC (Bld) 72.8 % Normal 40.0-80.0 [facility] Comment on above: Performed By: #### H EMDF, CKMBS, CMP3, MG3, TROPN, MBF33 ####[address] Hematocrit Auto Volume Fraction (Bld) 37.5 % Normal 35.0-47.0 [facility] Comment on above: Performed By: #### H EMDF, CKMBS, CMP3, MG3, TROPN, MBF33 ####[address] Hemoglobin mass conc (Bld) 12.6 g/dL Normal 11.7-16.0 [facility] Comment on above: Performed By: #### H EMDF, CKMBS, CMP3, MG3, TROPN, MBF33 ####[address] Lymphocytes Auto #/vol (Bld) 1.5 10*3/uL Normal 1.0-4.3 [facility] Comment on above: Performed By: #### H EMDF, CKMBS, CMP3, MG3, TROPN, MBF33 ####[address] Lymphocytes/100 WBC Auto (Bld) 17.4 % Low 20.0-40.0 [facility] Comment on above: Performed By: #### H EMDF, CKMBS, CMP3, MG3, TROPN, MBF33 ####[address] MCH Auto Entitic mass (RBC) 31.3 pg Normal 26.0-34.0 [facility] Comment on above: Performed By: #### H EMDF, CKMBS, CMP3, MG3, TROPN, MBF33 ####[address] [place], [place] MCHC Auto mass conc (RBC) 33.5 % Normal 32.0-36.0 [facility] Comment on above: Performed By: #### H EMDF, CKMBS, CMP3, MG3, TROPN, MBF33 ####[address] [place], [place] MCV Auto Entitic volume (RBC) 93.5 fL Normal 79.0-98.0 [facility] Comment on above: Performed By: #### H EMDF, CKMBS, CMP3, MG3, TROPN, MBF33 ####[address] [place], [place] Monocytes Auto #/vol (Bld) 0.6 10*3/uL Normal 0.0-0.8 [facility] Comment on above: Performed By: #### H EMDF, CKMBS, CMP3, MG3, TROPN, MBF33 ####[address] Monocytes/100 WBC Auto (Bld) 7.1 % Normal 2.0-10.0 [facility] Comment on above: Performed By: #### H EMDF, CKMBS, CMP3, MG3, TROPN, MBF33 ####[address] Platelet mean volume Auto Entitic volume (Bld) 8.5 fL Normal 7.4-10.4 [facility] Comment on above: Performed By: #### H EMDF, CKMBS, CMP3, MG3, TROPN, MBF33 ####[address] [place], [place] Platelets Auto #/vol (Bld) 267 10*3/uL Normal 140-440 [facility] Comment on above: Performed By: #### H EMDF, CKMBS, CMP3, MG3, TROPN, MBF33 ####[address] [place], [place] RBC Auto #/vol (Bld) 4.01 10*6/uL Normal 3.80-5.20 [facility] Comment on above: Performed By: #### H EMDF, CKMBS, CMP3, MG3, TROPN, MBF33 ####[address] [place], [place] WBC Auto #/vol (Bld) 8.9 10*3/uL Normal 3.6-10.7 [facility] Comment on above: Performed By: #### H EMDF, CKMBS, CMP3, MG3, TROPN, MBF33 ####[address] [place], [place] Magnesiumon 05-09-2018 Magnesium mass conc 2.0 mg/dL Normal 1.6-2.3 [facility] Comment on above: Performed By: #### H A1C2, LIPD2, TROPN, APTT, TSH5, CKMBS, MBF33 ####[address] [place], [place] Troponin Ion 05-09-2018 Troponin I.cardiac mass conc 11.700 ng/mL High 0.000-0.034 [facility] Comment on above: Result Comment: 0.04 6 - 0.400 = Indeterminate> 0.400 = Consider Myocardial Injury Performed By: #### H A1C2, LIPD2, TROPN, APTT, TSH5, CKMBS, [id number] ####[address] [place], [place] APTTon 05-08-2018 aPTT Coag time (Bld) 119.9 s High 20.0-30.5 [facility] Comment on above: Result Comment: NOTE : The therapeutic time for Heparin anticoagulation,based on Xa activity inhibition, is an APTT of 46-80seconds. Performed By: #### H A1C2, LIPD2, TROPN, APTT, TSH5, CKMBS, MBF33 ####[address] [place], [place] CKMB Fractionationon 018 CK.MB mass conc 6.2 ng/mL High 0.0-2.4 [facility] Comment on above: Result Comment: Both the CKMB and the Relative Index must be abnormal forclinical significance. Performed By: #### H A1C2, LIPD2, TROPN, APTT, TSH5, CKMBS, [id number] ####[address] [place] [address] Relative Index 6.4 High 0.0-3.0 [facility] Comment on above: Performed By: #### H A1C2, LIPD2, TROPN, APTT, TSH5, CKMBS, MBF33 ####[address] [place] [address] CKMB Screenon 05-08-2018 CK enzyme act/vol 97 U/L Normal 30-[address] [facility] Comment on above: Performed By: #### H A1C2, LIPD2, TROPN, APTT, TSH5, CKMBS, MBF33 ####[address] [place] [address] CR Chest Portableon 05-08-20 18 CR Chest Portable Patient Name: JONATHAN MOISE Diagnostic Radiology Exam Date/Time 05/08/2018 15:45:00 EDT Exam CR Chest Portable Ordering Physician MD ANUPAMA, [facility] Accession Number [id number] CPT4 Codes 44673 () Reason For Exam epigastric pain Report EXAM TYPE: RADIOLOGIC EXAMINATION, CHEST, SINGLE VIEW FRONTAL (CXR SINGLE VIEW) EXAM DATE AND TIME: 05/08/2018 3:45 PM EDT INDICATION: Epigastric pain COMPARISON: 06/17/2016 TECHNIQUE: A single frontal view of the thorax was obtained and reviewed. Special views: None. IMPRESSION: 1. Lines/Tubes/Devices/Hard greenwood: Monitoring leads.. 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 --- --- Procedures performed: - Left coronary angiography. - Right coronary angiography. - Left heart catheterization. - Percutaneous intervention on the 100% stenosis in the proximal right coronary. Balloon angioplasty. Interventional IVUS examination. Stent placement. Balloon angioplasty. --- --- SUMMARY: 1. 67y/o female without prior [...] 6. Echo to assess LV function. --- --- HISTORY: PMH: Chronic lung disease. Risk factors: Current tobacco use. Hypertension. Allergies: OTHER allergy. --- --- PROCEDURE IN DETAIL: Study status: Cardiac [...] artery access. A 6Fr x 11cm Prelude [place] sheath was advanced into the vessel. 5. [...] 5. Intravascular ultrasound evaluation, using a .014 [facility] catheter. 6. Stent placement. A 3 mm [...] ISOVUE 300MG/CC 106 ml (total dose). --- --- CORONARY ARTERIES: The coronary circulation is [...] VALVE: There is no stenosis. HEMODYNAMICS: + --+ + !Stage description !Condition1:Room Air -! + --+ + !LV pressure s/ed !165/12 ! + --+ + !Arterial pressure s/d (m)!85/42 (62) ! + --+ + Prepared and electronically signed by Tariq Levy MD 05/09/2018 06:58 Final Dictated: 05/09/2018 6:58 am Dictating Physician: MD LEVY PETER Signed Date and Time: 05/09/2018 6:58 am Signed by: MD LEVY PETER Normal [facility] Hemoglobin A1Con 05-08-2018 Glucose mass conc 111 mg/dL Normal [facility] [employer] [facility] Comment on above: Performed By: #### H A1C2, LIPD2, TROPN, APTT, TSH5, CKMBS, [id number] ####[employer] [place] [address] Hemoglobin A1c/Hemoglobin.total mass fraction (Bld) 5.5 % Normal 4.0-5.7 [facility] Comment on above: Result Comment: --Hg bA1C levels may not be accurate in patients who haverenal disease, received recent blood transfusions, are anemic,or who have dyshemoglobinemia. Performed By: #### H A1C2, LIPD2, TROPN, APTT, TSH5, CKMBS, MBF33 ####[id number] [place] [address] Lipid Panelon 05-08-2018 Cholesterol in HDL mass conc 37 mg/dL Low 40-60 [facility] Comment on above: Performed By: #### H A1C2, LIPD2, TROPN, APTT, TSH5, CKMBS, MBF33 ####[employer] [place] [address] Cholesterol.total/Ch olesterol in HDL mass ratio 5 Normal [facility] Comment on above: Result Comment: Ref Range:< 3 Low Risk for CHD3-6 Mod Risk for CHD> 6 High Risk for CHD Performed By: #### H A1C2, LIPD2, TROPN, APTT, TSH5, CKMBS, [id number] ####[facility] [employer] [id number] [place], [place] Protein mass conc 117 mg/dL Abnormal <100 [facility] Comment on above: Performed By: #### H A1C2, LIPD2, TROPN, APTT, TSH5, CKMBS, [id number] ####[address] Triglyceride mass conc 65 mg/dL Normal <150 [facility] Comment on above: Performed By: #### H A1C2, LIPD2, TROPN, APTT, TSH5, CKMBS, [id number] ####[id number] [place], [place] Cholesterol mass conc 167 mg/dL Normal < 200 [facility] Comment on above: Performed By: #### H A1C2, LIPD2, TROPN, APTT, TSH5, CKMBS, [id number] ####[facility] [employer] [address] Thyroid Stim. Hormoneon 04-15 Thyroid Stim. Hormone 0.982 u[IU]/mL Normal 0.465-4.680 [facility] Comment on above: Performed By: #### H A1C2, LIPD2, TROPN, APTT, TSH5, CKMBS, [id number] ####[facility] [employer] [id number] [place], [place] Troponin Ion 05-08-2018 Troponin I.cardiac mass conc 1.100 ng/mL High 0.000-0.034 [facility] Comment on above: Result Comment: 0.04 6 - 0.400 = Indeterminate> 0.400 = Consider Myocardial Injury Performed By: #### H A1C2, LIPD2, TROPN, APTT, TSH5, CKMBS, [id number] ####[id number] [place], [place] ECG B/O W INTERP (MED OFFICE ) [facility] Vital Signs Date Time Vital Sign Value Performing Clinician Facility 06-23-2025 17:46-0400 Body height 167.6 cm Alexandro Neville MD Work Phone: [facility] 06-23-2025 17:46-0400 Body mass index (BMI) [Ratio] 20.18 kg/m2 Alexandro Neville MD Work Phone: [facility] 06-23-2025 17:46-0400 Body temperature 97.5 [degF] Alexandro Neville MD Work Phone: [facility] 06-23-2025 17:46-0400 Body weight 56.7 kg Alexandro Neville MD Work Phone: [facility] 06-23-2025 17:46-0400 Diastolic blood pressure 102 mm[Hg] Alexandro Neville MD Work Phone: [facility] 06-23-2025 17:46-0400 Heart rate 108 /min Alexandro Neville MD Work Phone: [facility] 06-23-2025 17:46-0400 Respiratory rate 16 /min Alexandro Neville MD Work Phone: [facility] 06-23-2025 17:46-0400 SaO2% (BldA) [Mass fraction] 95 % Alexandro Neville MD Work Phone: [facility] 06-23-2025 17:46-0400 Systolic blood pressure 192 mm[Hg] Alexandro Neville MD Work Phone: [facility] 01-25-2025 13:41-0400 Diastolic blood pressure 61 mm[Hg] Adarsh Duggan MD Work Phone: [facility] [employer] 01-25-2025 13:41-0400 Heart rate 82 /min Adarsh Duggan MD Work Phone: [facility] 01-25-2025 13:41-0400 Systolic blood pressure 103 mm[Hg] Adarsh Duggan MD Work Phone: [facility] 01-25-2025 13:20-0400 Body height 167.6 cm Adarsh Duggan MD Work Phone: [facility] [employer] 01-25-2025 13:20-0400 Body mass index (BMI) [Ratio] 20.24 kg/m2 Adarsh Duggan MD Work Phone: [facility] [employer] 01-25-2025 13:20-0400 Body weight 56.88 kg Adarsh Duggan MD Work Phone: [facility] [employer] 01-25-2025 13:20-0400 SaO2% (BldA) [Mass fraction] 94 % Adarsh Duggan MD Work Phone: [facility] [employer] 07-26-2024 13:32-0500 Body height 167.6 cm Adarsh Duggan MD Work Phone: [facility] [employer] 07-26-2024 13:32-0500 Body mass index (BMI) [Ratio] 20.76 kg/m2 Adarsh Duggan MD Work Phone: [facility] [employer] 07-26-2024 13:32-0500 Body weight 58.33 kg Adarsh Duggan MD Work Phone: [facility] [employer] 07-26-2024 13:32-0500 Diastolic blood pressure 75 mm[Hg] Adarsh Duggan MD Work Phone: [facility] [employer] 07-26-2024 13:32-0500 Heart rate 85 /min Adarsh Duggan MD Work Phone: [facility] [employer] 07-26-2024 13:32-0500 SaO2% (BldA) [Mass fraction] 96 % Adarsh Duggan MD Work Phone: [facility] [employer] 07-26-2024 13:32-0500 Systolic blood pressure 95 mm[Hg] Adarsh Duggan MD Work Phone: [facility] [employer] 12-23-2023 14:02-0400 Body mass index (BMI) [Ratio] 21.63 kg/m2 Deana Oh [employer] Work Phone: [facility] [employer] 12-23-2023 14:02-0400 Body temperature 96.91 [degF] Deana Claytonenthal [employer] Work Phone: [facility] [employer] 12-23-2023 14:02-0400 Body weight 60.78 kg Deana Bridenthal [employer] Work Phone: [facility] [employer] 12-23-2023 14:02-0400 Diastolic blood pressure 70 mm[Hg] Deaan Bridenthal [employer] Work Phone: [facility] [employer] 12-23-2023 14:02-0400 Heart rate 80 /min Deana Bridenthal [employer] Work Phone: [facility] [employer] 12-23-2023 14:02-0400 Respiratory rate 20 /min Deana Bridenthal [employer] Work Phone: [facility] [employer] 12-23-2023 14:02-0400 SaO2% (BldA) [Mass fraction] 94 % Deana Bridenthal [employer] Work Phone: [facility] [employer] 12-23-2023 14:02-0400 Systolic blood pressure 166 mm[Hg] Deana Bridenthal [employer] Work Phone: [facility] [employer] 07-21-2023 14:43-0500 Diastolic blood pressure 73 mm[Hg] Adarsh Duggan MD Work Phone: [facility] [employer] 07-21-2023 14:43-0500 Heart rate 67 /min Adarsh Duggan MD Work Phone: [facility] [employer] 07-21-2023 14:43-0500 Systolic blood pressure 151 mm[Hg] Adarsh Duggan MD Work Phone: [facility] [employer] 07-21-2023 14:11-0500 Body height 167.6 cm Adarsh Duggan MD Work Phone: [facility] [employer] 07-21-2023 14:11-0500 Body mass index (BMI) [Ratio] 21.79 kg/m2 Adarsh Duggan MD Work Phone: [facility] [employer] 07-21-2023 14:11-0500 Body weight 61.24 kg Adarsh Duggan MD Work Phone: [facility] [employer] 07-21-2023 14:11-0500 SaO2% (BldA) [Mass fraction] 95 % Adarsh Duggan MD Work Phone: [facility] [employer] 05-25-2023 13:41-0400 Body height 167.6 cm Taylor Ruby [employer] Work Phone: [facility] [employer] 05-25-2023 13:41-0400 Body mass index (BMI) [Ratio] 21.95 kg/m2 Taylor Ruby [employer] Work Phone: [facility] [employer] 05-25-2023 13:41-0400 Body temperature 98.2 [degF] Taylor Ruby [employer] Work Phone: [facility] [employer] 05-25-2023 13:41-0400 Body weight 61.69 kg Taylor Ruby [employer] Work Phone: [facility] [employer] 05-25-2023 13:41-0400 Diastolic blood pressure 74 mm[Hg] Taylor Ruby [employer] Work Phone: [facility] [employer] 05-25-2023 13:41-0400 Heart rate 76 /min Taylor Ruby [employer] Work Phone: [facility] [employer] 05-25-2023 13:41-0400 SaO2% (BldA) [Mass fraction] 98 % Taylor Ruby [employer] Work Phone: [facility] [employer] 05-25-2023 13:41-0400 Systolic blood pressure 136 mm[Hg] Taylor Ruby [employer] Work Phone: [facility] [employer] 01-24-2023 16:38-0400 Diastolic blood pressure 84 mm[Hg] Temo Hicks MD Work Phone: [facility] [employer] 01-24-2023 16:38-0400 Heart rate 82 /min Temo Hicks MD Work Phone: [facility] 01-24-2023 16:38-0400 Respiratory rate 16 /min Temo Hicks MD Work Phone: [facility] 01-24-2023 16:38-0400 SaO2% (BldA) [Mass fraction] 99 % Temo Hicks MD Work Phone: [facility] 01-24-2023 16:38-0400 Systolic blood pressure 162 mm[Hg] Temo Hicks MD Work Phone: [facility] 01-24-2023 15:24-0400 Body height 167.6 cm Temo Hicks MD Work Phone: [facility] 01-24-2023 15:24-0400 Body mass index (BMI) [Ratio] 23.89 kg/m2 Temo Hicks MD Work Phone: [facility] 01-24-2023 15:24-0400 Body temperature 98.91 [degF] Temo Hicks MD Work Phone: [facility] 01-24-2023 15:24-0400 Body weight 67.13 kg Temo Hicks MD Work Phone: [facility] 05-29-2022 19:25-0400 Diastolic blood pressure 76 mm[Hg] Dr. Adarsh Duggan Work Phone: [facility] Work Phone: 05-29-2022 19:25-0400 Heart rate 72 /min Dr. Adarsh Duggan Work Phone: [facility] Work Phone: 05-29-2022 19:25-0400 Respiratory rate 16 /min Dr. Adarsh Duggan Work Phone: [facility] Work Phone: 05-29-2022 19:25-0400 SaO2% (BldA) [Mass fraction] 97 % Dr. Adarsh Duggan Work Phone: [facility] Work Phone: 05-29-2022 19:25-0400 Systolic blood pressure 113 mm[Hg] Dr. Adarsh Duggan Work Phone: [facility] Work Phone: 05-29-2022 16:55-0400 Body height 177.[address] Adarsh Duggan Work Phone: [facility] Work Phone: 05-29-2022 16:55-0400 Body mass index (BMI) [Ratio] 19.3 kg/m2 Dr. Adarsh Duggan Work Phone: [facility] Work Phone: 05-29-2022 16:55-0400 Body temperature 97.6 [degF] Dr. Adarsh Duggan Work Phone: [facility] Work Phone: 05-29-2022 16:55-0400 Body weight 61.[address] Adarsh Duggan Work Phone: [facility] Work Phone: 05-28-2022 17:11-0400 Body height 177.8 cm Berenice Garcia DO Work Phone: [facility] 05-28-2022 17:11-0400 Body mass index (BMI) [Ratio] 18.65 kg/m2 Berenice Garcia DO Work Phone: [facility] 05-28-2022 17:11-0400 Body temperature 98.71 [degF] Berenice Garcia DO Work Phone: [facility] 05-28-2022 17:11-0400 Body weight 58.97 kg Berenice Garcia DO Work Phone: [facility] 05-28-2022 17:11-0400 Diastolic blood pressure 87 mm[Hg] Berenice Garcia DO Work Phone: [facility] 05-28-2022 17:11-0400 Heart rate 92 /min Berenice Garcia DO Work Phone: [facility] 05-28-2022 17:11-0400 Respiratory rate 14 /min Berenicericky Zelaya DO Work Phone: [facility] 05-28-2022 17:11-0400 SaO2% (BldA) [Mass fraction] 97 % Berenicericky Zelaya DO Work Phone: [facility] 05-28-2022 17:11-0400 Systolic blood pressure 147 mm[Hg] Berenicericky Zelaya DO Work Phone: [facility] 05-25-2022 11:06-0400 Respiratory rate 18 /min Dr. Adarsh Duggan Work Phone: [facility] Work Phone: 05-25-2022 10:58-0400 Body height 177.[address] Adarsh Duggan Work Phone: [facility] Work Phone: 05-25-2022 10:58-0400 Body mass index (BMI) [Ratio] 21.2 kg/m2 Dr. Adarsh Duggan Work Phone: [facility] Work Phone: 05-25-2022 10:58-0400 Body temperature 98.6 [degF] Dr. Adarsh Duggan Work Phone: [facility] Work Phone: 05-25-2022 10:58-0400 Body weight 67.[address] Adarsh Duggan Work Phone: [facility] Work Phone: 05-25-2022 10:58-0400 Diastolic blood pressure 89 mm[Hg] Dr. Adarsh Duggan Work Phone: [facility] Work Phone: 05-25-2022 10:58-0400 Heart rate 69 /min Dr. Adarsh Duggan Work Phone: [facility] Work Phone: 05-25-2022 10:58-0400 SaO2% (BldA) [Mass fraction] 96 % Dr. Adarsh Duggan Work Phone: [facility] Work Phone: 05-25-2022 10:58-0400 Systolic blood pressure 172 mm[Hg] Dr. Adarsh Duggan Work Phone: [facility] Work Phone: 05-24-2022 18:00-0400 Diastolic blood pressure 85 mm[Hg] Brayan Bergman MD Work Phone: [facility] 05-24-2022 18:00-0400 Heart rate 79 /min Brayan Bergman MD Work Phone: [facility] 05-24-2022 18:00-0400 Respiratory rate 14 /min Brayan Bergman MD Work Phone: [facility] 05-24-2022 18:00-0400 SaO2% (BldA) [Mass fraction] 100 % Brayan Bergman MD Work Phone: [facility] 05-24-2022 18:00-0400 Systolic blood pressure 146 mm[Hg] Brayan Bergman MD Work Phone: [facility] 05-24-2022 15:57-0400 Body temperature 98.01 [degF] Brayan Bergman MD Work Phone: [facility] 02-07-2022 11:17-0400 Diastolic blood pressure 73 mm[Hg] Dr. Adarsh Duggan Work Phone: [facility] Work Phone: 02-07-2022 11:17-0400 Heart rate 64 /min Dr. Adarsh Duggan Work Phone: [facility] Work Phone: 02-07-2022 11:17-0400 Respiratory rate 17 /min Dr. Adarsh Duggan Work Phone: [facility] Work Phone: 02-07-2022 11:17-0400 SaO2% (BldA) [Mass fraction] 94 % Dr. Adarsh Duggan Work Phone: [facility] Work Phone: 02-07-2022 11:17-0400 Systolic blood pressure 139 mm[Hg] Dr. Adarsh Duggan Work Phone: [facility] Work Phone: 02-07-2022 10:32-0400 Body weight 67.[address] Adarsh Duggan Work Phone: [facility] Work Phone: 02-07-2022 08:00-0400 Body temperature 97.7 [degF] Dr. Adarsh Duggan Work Phone: [facility] Work Phone: 02-06-2022 21:28-0400 Body mass index (BMI) [Ratio] 24.7 kg/m2 Dr. Adarsh Duggan Work Phone: [facility] Work Phone: 01-21-2022 10:14-0400 Body height 170.2 cm Caryn Wood MD Work Phone: [facility] 01-21-2022 10:14-0400 Body weight 65.77 kg Caryn Wood MD Work Phone: [facility] 01-21-2022 10:14-0400 Diastolic blood pressure 72 mm[Hg] Caryn Wood MD Work Phone: [facility] 01-21-2022 10:14-0400 Heart rate 52 /min Caryn Wood MD Work Phone: [facility] 01-21-2022 10:14-0400 Respiratory rate 18 /min Caryn Wood MD Work Phone: [facility] 01-21-2022 10:14-0400 SaO2% (BldA) [Mass fraction] 96 % Caryn Wood MD Work Phone: [facility] 01-21-2022 10:14-0400 Systolic blood pressure 142 mm[Hg] Caryn Wood MD Work Phone: [facility] 12-19-2021 11:24-0400 Body height 167.[address] Adarsh Duggan Work Phone: [facility] Work Phone: 12-19-2021 11:24-0400 Body weight 67.[address] Adarsh Duggan Work Phone: [facility] Work Phone: 12-19-2021 08:25-0400 Diastolic blood pressure 68 mm[Hg] Dr. Adarsh Duggan Work Phone: [facility] Work Phone: 12-19-2021 08:25-0400 Heart rate 60 /min Dr. Adarsh Duggan Work Phone: [facility] Work Phone: 12-19-2021 08:25-0400 Systolic blood pressure 136 mm[Hg] Dr. Adarsh Duggan Work Phone: [facility] Work Phone: 12-19-2021 08:22-0400 Body temperature 98.3 [degF] Dr. Adarsh Duggan Work Phone: [facility] Work Phone: 12-19-2021 08:22-0400 Respiratory rate 15 /min Dr. Adarsh Duggan Work Phone: [facility] Work Phone: 12-19-2021 08:22-0400 SaO2% (BldA) [Mass fraction] 97 % Dr. Adarsh Duggan Work Phone: [facility] Work Phone: 12-18-2021 17:09-0400 Body mass index (BMI) [Ratio] 23.9 kg/m2 Dr. Adarsh Duggan Work Phone: [facility] Work Phone: 12-18-2021 16:51-0400 Body temperature 97.9 [degF] Dr. Adarsh Duggan Work Phone: [facility] Work Phone: 12-18-2021 16:51-0400 Diastolic blood pressure 77 mm[Hg] Dr. Adarsh Duggan Work Phone: [facility] Work Phone: 12-18-2021 16:51-0400 Heart rate 129 /min Dr. Adarsh Duggan Work Phone: [facility] Work Phone: 12-18-2021 16:51-0400 Respiratory rate 20 /min Dr. Adarsh Duggan Work Phone: [facility] Work Phone: 12-18-2021 16:51-0400 SaO2% (BldA) [Mass fraction] 93 % Dr. Adarsh Duggan Work Phone: [facility] Work Phone: 12-18-2021 16:51-0400 Systolic blood pressure 105 mm[Hg] Dr. Adarsh Duggan Work Phone: [facility] Work Phone: 12-18-2021 11:01-0400 Body height 167.[address] Adarsh Duggan Work Phone: [facility] Work Phone: 12-18-2021 11:01-0400 Body mass index (BMI) [Ratio] 21.3 kg/m2 Dr. Adarsh Duggan Work Phone: [facility] Work Phone: 12-18-2021 11:01-0400 Body weight [address] Adarsh Duggan Work Phone: [facility] Work Phone: 12-20-2020 13:50-0400 BP Diastolic 81 [...] 12-20-2020 10:37-0400 Body weight 62.6 kg Emiliano MCCAULEY Work Phone: 12-20-2020 10:37-0400 Height 167.6 cm Emiliano MCCAULEY Work Phone: Encounters Encounter Date Encounter Type Care Provider Facility Start: 07-23-2025 End: 07-23-2025 Emergency department patient visit [facility] Facility:[facility] Start: 07-14-2025 End: 07-17-2025 ambulatory Mae Mccauley Clinical Communication Start: 07-14-2025 End: 07-17-2025 Patient encounter procedure [facility] Communication Comment on above: Neuropathy Start: 07-11-2025 End: 07-20-2025 Telephone encounter Adarsh Duggan MD Work Phone: [facility] Comment on above: Med Refill Start: 07-10-2025 End: 07-10-2025 ambulatory Temo Rider Facility:[facility] Start: 07-03-2025 End: 07-03-2025 Refill [facility] MD [facility] Comment on above: Anxiety Start: 06-23-2025 End: 06-23-2025 Emergency department patient visit Alexandro Neville MD Work Phone: [facility] ED Comment on above: Paronychia of finger of right hand (Primary Dx) Start: 06-12-2025 End: 06-14-2025 Refill Adarsh Duggan MD Work Phone: [facility] Comment on above: Neuropathy Start: 06-05-2025 End: 06-05-2025 Refill Adarsh Duggan MD Work Phone: [facility] Clinical Communication Comment on above: Anxiety Start: 05-12-2025 End: 05-16-2025 Refill Adarsh Dgugan MD Work Phone: [facility] Comment on above: Neuropathy Start: 04-06-2025 End: 04-10-2025 Refill Adarsh Duggan MD Work Phone: [facility] Comment on above: Anxiety Start: 01-25-2025 End: 01-25-2025 ambulatory ADARSH DUGGAN [facility] Start: 01-25-2025 End: 01-25-2025 Office outpatient visit 25 minutes Adarsh Duggan MD Work Phone: [facility] Comment on above: Chronic obstructive pulmonary disease, unspecified COPD type (HCC) (Primary Dx); Paroxysmal atrial fibrillation (HCC); Coronary artery disease involving [place] coronary artery of [place] heart without angina pectoris; Neuropathy; Essential hypertension; Fibromyalgia; Cigarette smoker; Anxiety; Pure hypercholesterolemia; Ganglion cyst of wrist, left; Depressive disorder Start: 10-26-2024 End: 10-26-2024 Refill Adarsh Duggan MD Work Phone: [facility] Comment on above: Neuropathy Start: 10-20-2024 End: 10-20-2024 Telephone encounter Adarsh Duggan MD Work Phone: [facility] Start: 10-03-2024 End: 10-03-2024 Subsequent hospital visit by physician Adarsh Duggan MD Work Phone: [facility] Comment on above: Cigarette smoker Start: 10-03-2024 End: 10-03-2024 ambulatory [facility] Start: 09-26-2024 End: 09-26-2024 Refill Adarsh Duggan MD Work Phone: [facility] Comment on above: Neuropathy Start: 08-29-2024 End: 08-29-2024 ambulatory [facility] Start: 07-26-2024 End: 07-26-2024 Patient encounter procedure Adarsh Duggan MD Work Phone: [facility] Comment on above: Medicare annual [facility], subsequent (Primary Dx); Paroxysmal atrial fibrillation (HCC); Chronic obstructive pulmonary disease, unspecified COPD type (HCC); Myoclonic disorder; Coronary artery disease involving [place] coronary artery of [place] heart without angina pectoris; Pure hypercholesterolemia; Depressive disorder; Anxiety; Cigarette smoker; Screening for diabetes mellitus; Influenza vaccine refused Start: 05-12-2024 End: 05-12-2024 Refill Adarsh Duggan MD Work Phone: [facility] Comment on above: Neuropathy Start: 05-05-2024 End: 05-06-2024 Refill Adarsh Duggan MD Work Phone: [facility] Comment on above: Anxiety Start: 03-11-2024 End: 03-11-2024 Refill Adarsh Duggan MD Work Phone: [facility] Comment on above: Anxiety Start: 01-05-2024 End: 01-05-2024 Subsequent hospital visit by physician Deana Bridenthal [employer] Work Phone: [facility] Comment on above: Mass of left side of neck Start: 01-01-2024 End: 01-01-2024 Subsequent hospital visit by physician Deana Oh [employer] Work Phone: [facility] Comment on above: Canceled (Other: Can celed via Interface) Start: 12-23-2023 End: 12-23-2023 Office outpatient visit 25 minutes Deana Oh [employer] Work Phone: [facility] Comment on above: Mass of left side of neck (Primary Dx); Neuropathy; Anxiety; Chronic obstructive pulmonary disease, unspecified COPD type (HCC); Essential hypertension Start: 12-22-2023 ambulatory Shireen Antunez RN [facility] Cl inical Communication Start: 12-22-2023 Patient encounter procedure Shireen murray RN [facility] Clinical Communication Start: 12-14-2023 Refill Adarsh Duggan MD Work Phone: [facility] Comment on above: Anxiety Start: 07-27-2023 Telephone encounter Taylor Hidalgo [employer] Work Phone: [facility] Comment on above: Blood Pressure Check Start: 07-21-2023 End: 07-21-2023 Patient encounter procedure Adarsh Duggan MD Work Phone: [facility] Comment on above: Medicare annual well ness visit, subsequent (Primary Dx); Anxiety; Peripheral vascular disease, unspecified (HCC); Chronic obstructive pulmonary disease, unspecified COPD type (HCC); Essential hypertension; Coronary artery disease involving [place] coronary artery of [place] heart without angina pectoris; Paroxysmal atrial fibrillation (HCC); Pure hypercholesterolemia; Osteoporosis without current pathological fracture, unspecified osteoporosis type Start: 07-09-2023 Telephone encounter Adarsh Avalos MD Work Phone: [facility] Comment on above: Results Start: 07-07-2023 End: 07-07-2023 Subsequent hospital visit by physician Adarsh Duggan MD Work Phone: [facility] Radiology Comment on above: Menopause Start: 05-27-2023 Telephone encounter Adarsh Avalos MD Work Phone: [facility] Start: 05-25-2023 End: 05-25-2023 Office outpatient visit 25 minutes Taylor Briones Tung [employer] Work Phone: [facility] Comment on above: Viral URI with cough (Primary Dx); Chronic obstructive pulmonary disease, unspecified COPD type (HCC); Smoker Start: 03-30-2023 Refill Adarsh Duggan MD Work Phone: [facility] Start: 03-02-2023 Refill Adarsh Duggan MD Work Phone: [facility] Comment on above: Chronically on benzo diazepine therapy (Primary Dx); Anxiety Start: 01-24-2023 End: 01-24-2023 Subsequent hospital visit by physician [facility] Radiology Comment on above: Arrived Start: 01-24-2023 End: 01-24-2023 Emergency department patient visit Temo Hicks MD Work Phone: [facility] ED Comment on above: Acute hip pain, left (Primary Dx); Closed compression fracture of L1 lumbar vertebra, initial encounter ([facility]) Start: 01-05-2023 Refill Deana Briden thal [employer] Work Phone: [facility] Comment on above: Anxiety Start: 12-02-2022 Refill Deana Claytonen thal [employer] Work Phone: [facility] Comment on above: Anxiety Start: 11-05-2022 Refill Adarsh Duggan MD Work Phone: [facility] Clinical Communication Comment on above: Anxiety Start: 11-04-2022 Refill Deana Briden thal [employer] Work Phone: [facility] Comment on above: Anxiety Start: 10-28-2022 ambulatory Patt Lerma RN [facility] Comment on above: COPD; Hypertension Start: 10-09-2022 Telephone encounter Adarsh Avalos MD Work Phone: [facility] Comment on above: Medication request Start: 10-06-2022 Refill Deana Dow thal [employer] Work Phone: [facility] Comment on above: Anxiety Start: 09-05-2022 ambulatory Patt Lerma RN [facility] Comment on above: COPD; Hypertension Start: 07-04-2022 Transcribe Orders Nelida Santana DO Work Phone: [facility] Central Scheduling Comment on above: Nicotine dependence, cigarettes, uncomplicated (Primary Dx) Start: 06-24-2022 Transcribe Orders Adarsh Drummond MD Work Phone: [facility] Comment on above: Encounter for screen ing for malignant neoplasm of respiratory organs (Primary Dx) Start: 05-29-2022 End: 05-29-2022 Emergency department patient visit Dr. Adarsh Duggan Work Phone: [facility] Start: 05-28-2022 End: 05-28-2022 Emergency department patient visit Adarsh Duggan [facility] Start: 05-28-2022 End: 05-28-2022 Emergency department patient visit Berenice Zelaya DO Work Phone: [facility] Comment on above: Neck pain (Primary D x); Torticollis Start: 05-25-2022 End: 05-25-2022 Emergency department patient visit Dr. Adarsh Duggan Work Phone: [facility] Start: 05-24-2022 End: 05-24-2022 Emergency department patient visit Adarsh Duggan [facility] Start: 05-24-2022 End: 05-24-2022 Emergency department patient visit Brayan Bergman MD Work Phone: [facility] Comment on above: Neck pain (Primary D x); Torticollis Start: 02-19-2022 Telephone encounter Caryn agrawal MD Work Phone: [facility] [place] Comment on above: Orders Start: 02-07-2022 Telephone encounter Andrea Muñozsalvador daniel APRN.CNP Work Phone: [facility] [place] Comment on above: Appointment Start: 02-07-2022 Non-patient / Non-visit Dr. Rivera Work Phone: [facility] Start: 02-07-2022 Non-patient / Non-visit Dr. Rivera Work Phone: [facility] Start: 02-06-2022 Non-patient / Non-visit Dr. Rivera Work Phone: [facility] Start: 02-06-2022 End: 02-07-2022 Evaluation and management of inpatient Dr. Adarsh Duggan Work Phone: [facility] Start: 01-27-2022 Patient encounter status Bryan Wood MD Work Phone: [facility] [place] Start: 01-27-2022 Telephone encounter Caryn agrawal MD Work Phone: [facility] [place] Comment on above: Orders; Preparations For Procedures (PVAI Ablation) Start: 01-21-2022 End: 01-21-2022 Patient encounter procedure Caryn Wood MD Work Phone: [facility] [place] Comment on above: Paroxysmal atrial fi brillation (HCC) (Primary Dx); Palpitations; 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 Rivera Work Phone: [facility] Start: 12-18-2021 End: 12-19-2021 Evaluation and management of inpatient Dr. Adarsh Duggan Work Phone: [facility] Start: 07-01-2021 ambulatory UNKNOWN PROVIDER [facility] Start: 12-20-2020 End: 12-20-2020 Emergency department patient visit Emiliano Harper Giuseppe Work Phone: [facility] ED Comment on above: Back muscle spasm (P rimary Dx) Start: 05-10-2020 End: 05-10-2020 Subsequent hospital visit by physician Nelida Santana Work Phone: [facility] Comment on above: Vitamin D deficiency [...] 05-08-2018 Evaluation and manag ement of inpatient Tariq Alejandroflaviarafaelamarj [facility] Procedures Date Procedure Procedure Detail Performing Clinician Start: 06-23-2025 Drainage finger absc ess simple Alexandro Neville MD Work Phone: Start: 08-29-2024 Lipid 1996 panel - S freddie or Plasma Adarsh Duggan MD Work Phone: Start: 01-24-2023 End: 01-24-2023 Radex spine lumbosacral 2/3 views Temo Hicks MD Work Phone: Start: 12-30-2022 Lipid 1996 panel - S freddie or Plasma Deana Oh LIBRARY MONITOR - PRODUCT [employer]ANGEL[employer] Work Phone: Start: 05-29-2022 Plain chest X-ray [...] Comment: Speci men Type: BLOOD SPECIMENOrdering Facility: [facility] Address: [address] [place] [address] Performed By: #### T SCR ####[facility] BLOOD BANKIA [id number] [address] [place] Start: 01-21-2022 Ecg routine ecg w/le ast [...] Non-invasive physiol ogic study extremity 3 levls Nelida Santana DO Work Phone: Start: 05-08-2018 History of placement of stent for coronary artery disease History of coronary artery stent placement Dr. Adarsh Duggan Work Phone: Plan of Treatment Date Care Activity Detail Author Start: 08-29-2029 Lipid panel Lipid Panel [facility] Start: 04-09-2028 DTaP/Tdap/Td vaccine (3 - Td or Tdap) DTaP/Tdap/Td vaccine (3 - Td or Tdap) [facility] Start: 04-09-2028 DTaP/Tdap/Td vaccine (3 - Td) DTaP/Tdap/Td vaccine (3 - Td) [facility] Work Phone: Start: 04-09-2028 DTaP/Tdap/Td Vaccines (3 - Td or Tdap) DTaP/Tdap/Td Vaccines (3 - Td or Tdap) [facility] Start: 04-09-2028 Urine microalbumin profile DTAP,TDAP,TD (3 - Td or Tdap) [facility] Start: 12-31-2027 Lipid panel Lipid Panel [facility] Start: 03-19-2027 Lipid panel [facility] Start: 10-17-2025 ambulatory Ambulatory Facility:[facility] Start: 10-03-2025 Screening for malignant neoplasm of lung Lung Cancer Screening [facility] Start: 08-02-2025 End: 08-02-2025 Patient encounter procedure 08/02/2025 1:30 PM EST Office Visit [address] [place] [address] Adarsh Duggan MD [address] [place] [address] [place] [address] [facility] Start: 07-26-2025 COVID-19 Vaccine () COVID-19 Vaccine () [facility] Comment on above: Postponed from 05/15/2024 (Patient Refus ed) Start: 07-26-2025 Hepatitis C screening Hepatitis C Screening [facility] Comment on above: Postponed from 1969 (Patient Refus ed) Start: 07-26-2025 RSV Immunization for Adults (1 - Risk 60-74 years 1-dose series) RSV Immunization for Adults (1 - Risk 60-74 years 1-dose series) [facility] Comment on above: Postponed from 2011 (Patient Refus ed) Start: 07-26-2025 Zoster Vaccines (1 of 2) Zoster Vaccines (1 of 2) [facility] Comment on above: Postponed from 2001 (Patient Refus ed) Start: 07-07-2025 Screening for osteoporosis Bone Density Scan [facility] Start: 05-15-2025 COVID-19 Vaccine ( season) COVID-19 Vaccine ( season) [facility] Start: 05-15-2025 Influenza vaccination [facility] Start: 03-15-2025 Lipid panel Lipid screen [facility] Work Phone: Start: 03-13-2025 Influenza vaccination Influenza Vaccine (#1) [facility] Comment on above: Postponed from 05/15/2024 (Patient Refus ed) Start: 02-04-2025 DIABETES SCREEN DIABETES SCREEN [facility] Start: 01-25-2025 End: 01-25-2025 Patient encounter procedure 01/25/2025 1:15 PM EDT Office Visit [facility] [address] [facility] [place] [address] [facility] [place] [address] [facility] Start: 01-23-2025 Depression Monitoring Depression Monitoring [facility] Start: 10-03-2024 Subsequent hospital visit by physician 10/03/2024 2:15 PM EST Hospital Encounter [facility] [address] [place] [phone] [facility] [address] [facility] [address] [facility] [address] Start: 09-14-2024 Medicare Advantage Annual Wellness Visit Medicare Advantage Annual Wellness Visit [facility] Start: 08-20-2024 Medicare Advantage Annual Wellness Visit (AWV) Medicare Advantage Annual Wellness Visit (AWV) [facility] Start: 07-26-2024 End: 07-25-2025 Comprehensive metabolic 1998 panel - Serum or Plasma Comprehensive metabolic panel Lab Routine Screening for diabetes mellitus Expected: 07/26/2024 (Approximate), Expires: 07/25/2025 [facility] Comment on above: Expected: 07/26/2024 (Approximate), Expi res: 07/25/2025 Start: 07-26-2024 End: 07-26-2025 CT Chest for screening WO contrast CT lung screening low dose Imaging Routine Cigarette smoker Expected: 07/26/2024, Expires: 07/26/2025 [facility] Comment on above: Expected: 07/26/2024, Expires: Start: 07-26-2024 End: 07-25-2025 Lipid 1996 panel - Serum or Plasma Lipid panel Lab Routine Pure hypercholesterolemia Expected: 07/26/2024 (Approximate), Expires: 07/25/2025 [facility] Work Phone: Comment on above: Expected: 07/26/2024 (Approximate), Expi res: 07/25/2025 Start: 07-26-2024 End: 07-26-2024 Patient encounter procedure 07/26/2024 2:00 PM EST Office Visit [address] [place] [address] Adarsh Duggan MD [address] [facility] [place] [address] [facility] Start: 07-07-2024 Screening for osteoporosis Bone Density Scan [facility] Start: 05-15-2024 Influenza vaccination [facility] Start: 02-02-2024 End: 02-02-2024 Patient encounter procedure 02/02/2024 2:00 PM EDT Office Visit [address] [place] [address] Adarsh Duggan MD [address] [facility] [place] [id number] [facility] Start: 01-19-2024 Depression Monitoring Depression Monitoring [facility] Start: 01-19-2024 Depresssion Monitoring Depresssion Monitoring [facility] Start: 01-05-2024 End: 01-05-2024 Patient encounter procedure 01/05/2024 3:00 PM EDT Appointment [facility] [address] [place] [phone] Deana Oh APRN - AMY [address] [facility] [place] [phone] [facility] Start: 01-01-2024 End: 01-01-2024 Patient encounter procedure 01/01/2024 9:30 AM EDT Appointment [facility] [address] [place] [phone] Deana Oh, LIBRARY MONITOR - PRODUCT EVANGELIST [address] [place] [address] [facility] Start: 12-31-2023 Lipid panel Lipid Panel [facility] Start: 12-23-2023 End: 12-22-2024 CBC W Auto Differential panel - Blood CBC auto differential Lab Routine Neuropathy Mass of left side of neck Expected: 12/23/2023 (Approximate), Expires: 12/22/2024 [facility] Comment on above: Expected: 12/23/2023 (Approximate), Expi res: 12/22/2024 Start: 12-23-2023 End: 12-23-2023 Patient encounter procedure 12/23/2023 2:00 PM EDT Office Visit [facility] [address] [facility] [place] [address] Deana Oh, LIBRARY MONITOR - PRODUCT EVANGELIST [address] [facility] [place] [address] [place] [address] [facility] Start: 12-23-2023 End: 12-22-2024 US Head and neck soft tissue US head neck soft tissue Imaging Routine Mass of left side of neck Expected: 12/23/2023, Expires: 12/22/2024 [facility] Work Phone: Comment on above: Expected: 12/23/2023, Expires: Start: 09-14-2023 Medicare Advantage Annual Wellness Visit Medicare Advantage Annual Wellness Visit [facility] Start: 07-27-2023 End: 07-27-2023 Clinical Support 07/27/2023 1:30 PM EST Clinical Support [facility] [address] [place] [address] [facility] Start: 07-21-2023 End: 07-21-2023 Patient encounter procedure 07/21/2023 2:00 PM EST Office Visit [facility] [address] [facility] [place] [address] Adarsh Duggan MD [address] [place] [address], [facility] [address] [facility] [address] [facility] Start: 07-02-2023 End: 07-02-2023 Patient encounter procedure [facility] Start: 07-01-2023 Depresssion Monitoring Depresssion Monitoring [facility] Start: 05-15-2023 COVID-19 Vaccine () COVID-19 Vaccine () [facility] Start: 05-15-2023 Influenza vaccination [facility] Start: 03-19-2023 Depression Monitoring Depression Monitoring [facility] Start: 03-02-2023 End: 05-02-2023 Drug tst prsmv read instrmnt asstd dir opt obs AMB POC DRUG SCREEN 12, [facility] Point of Care Testing Routine Chronically on benzodiazepine therapy Expected: 03/02/2023, Expires: 05/02/2023 [facility] Work Phone: Comment on above: Expected: 03/02/2023, Expires: 3 Start: 12-30-2022 End: 12-30-2022 Patient encounter procedure 12/30/2022 Office Visit Family Medicine Adarsh Duggan MD [address] [place] [address] [address] [facility] [address] [facility] Start: 07-04-2022 End: 07-04-2023 CT Chest for screening WO contrast CT lung screening low dose Imaging Routine Nicotine dependence, cigarettes, uncomplicated Expected: 07/04/2022, Expires: 07/04/2023 [facility] [employer] for [employer] Work Phone: Comment on above: Expected: 07/04/2022, Expires: 3 Start: 06-24-2022 End: 06-24-2022 Patient encounter procedure 06/24/2022 Office Visit Family Adarsh Edmondson MD [address] [place] [address] [place] [address] [facility] Start: 06-05-2022 End: 06-05-2022 Nursing evaluation of patient and report 06/05/2022 Nurse Only Family Medicine [facility] Start: 05-29-2022 Troponin I measurement [facility] Work Phone: Start: 05-29-2022 [facility] Work Phone: Start: 05-25-2022 Electrocardiographic procedure [facility] Work Phone: Start: 05-25-2022 Blood chemistry [facility] Work Phone: Start: 05-25-2022 Troponin I measurement [facility] Work Phone: Start: 05-22-2022 End: 02-19-2023 Echocardiography ECHO Cardiology Routine Persistent atrial fibrillation (HCC) Dyspnea, unspecified type Expected: 05/22/2022, Expires: 02/19/2023 [facility] Work Phone: Comment on above: Expected: 05/22/2022, Expires: 3 Start: 05-22-2022 End: 02-19-2023 HOLTER MONITOR 24 HOUR HOLTER MONITOR 24 HOUR ECG Routine Persistent atrial fibrillation (HCC) Dyspnea, unspecified type Expected: 05/22/2022, Expires: 02/19/2023 [facility] Work Phone: Comment on above: Expected: 05/22/2022, Expires: 3 Start: 05-15-2022 Influenza vaccination [facility] Start: 02-07-2022 Patient discharge [facility] Work Phone: Start: 02-07-2022 [facility] Work Phone: Start: 02-06-2022 Following clinical pathway protocol [facility] Work Phone: Start: 02-06-2022 Assessment of risk of venous thromboembolism [facility] Work Phone: Start: 02-06-2022 Catheterization of vein [facility] Work Phone: Start: 02-06-2022 Incentive spirometry [facility] Work Phone: Start: 02-06-2022 Inhalation therapy procedure [facility] Work Phone: Start: 02-06-2022 Insertion of catheter into peripheral vein [facility] Work Phone: Start: 02-06-2022 Measuring intake and output [facility] Work Phone: Start: 02-06-2022 Medication education [facility] Work Phone: Start: 02-06-2022 Providing care according to standard [facility] Work Phone: Start: 02-06-2022 Referral to gas desulfurizer [facility] Work Phone: Start: 02-06-2022 [facility] Work Phone: Start: 02-06-2022 Admission procedure [facility] Work Phone: Start: 02-06-2022 Patient referral to dietitian [facility] Work Phone: Start: 01-27-2022 End: 01-27-2023 SARS-CoV-2 (COVID-19) RNA [Presence] in Respiratory specimen by AJITH with probe detection PRE-PROCEDURE & PRE-OPERATIVE COVID Microbiology Routine Pre-procedure lab exam Expected: 01/27/2022, Expires: 01/27/2023 [facility] Work Phone: Comment on above: Expected: 01/27/2022, Expires: 3 Start: 01-25-2022 COVID-19 VACCINE (3 - Booster for Pfizer series) COVID-19 VACCINE (3 - Booster for Pfizer series) [facility] Start: 10-22-2021 COVID-19 Vaccine (3 - Booster for Pfizer series) COVID-19 Vaccine (3 - Booster for Pfizer series) [facility] Start: 10-22-2021 COVID-19 Vaccine (3 - Pfizer series) COVID-19 Vaccine (3 - Pfizer series) [facility] Start: 09-14-2021 ADVANCE DIRECTIVE DISCUSSION ADVANCE DIRECTIVE DISCUSSION [facility] Start: 05-15-2021 Influenza vaccination Flu vaccine (Season Ended) [facility] Work Phone: Start: 05-10-2021 Creatinine measurement Creatinine monitoring [employer] Work Phone: Start: 05-10-2021 Potassium monitoring Potassium monitoring [facility] Work Phone: Start: 05-08-2021 DIABETES SCREEN DIABETES SCREEN [facility] Start: 03-15-2021 Lipid panel Lipid screen [facility] [place] Start: 01-30-2021 Creatinine measurement Creatinine monitoring [employer], [place] Start: 01-30-2021 Potassium monitoring Potassium monitoring [facility] [place], [place] Start: 05-15-2020 Influenza vaccination Flu vaccine (#1) [facility] Start: 03-30-2020 End: 03-30-2020 Appointment 03/30/2020 Appointment EKMargot Dunn, LIBRARY MONITOR - PRODUCT EVANGELIST [address] [facility] [address] [place] [address] [facility] Start: 03-22-2020 End: 03-22-2020 Nurse Only 03/22/2020 Nurse Only Family Medicine [facility] Start: 05-22-2019 Creatinine measurement Creatinine monitoring [facility], [place] Start: 05-22-2019 Creatinine monitoring Creatinine monitoring [facility] Work Phone: Start: 05-22-2019 Potassium monitoring Potassium monitoring [facility] Work Phone: Start: 05-08-2019 Lipid panel Lipid screen [facility] [place] Start: 05-08-2019 Lipid screen Lipid screen [facility] Work Phone: Start: 03-03-2019 Annual Wellness Visit (AWV) Annual Wellness Visit (AWV) [facility] Work Phone: Start: 08-19-2018 Colon Cancer Screen FIT/FOBT Colon Cancer Screen FIT/FOBT [facility] Work Phone: Start: 08-19-[address] lung screening Low dose CT lung screening [facility] Work Phone: Start: 08-19-2018 Screening for malignant neoplasm of colon [facility] Start: 08-19-2018 Screening for malignant neoplasm of lung Low dose CT lung screening [place], [place] Start: 01-06-2018 Pneumococcal 65+ years Vaccine (2 of 2 - PPSV23) Pneumococcal 65+ years Vaccine (2 of 2 - PPSV23) [facility] Work Phone: Start: 11-03-2016 Breast cancer screen Breast cancer screen [facility] Work Phone: Start: 11-03-2016 Screening for malignant neoplasm of breast Breast cancer screen [facility] Start: 2016 BONE DENSITY BONE DENSITY [facility] Start: 2011 RSV Immunization aged 60 or older (1 - 1-dose 60+ series) RSV Immunization aged 60 or older (1 - 1-dose 60+ series) [facility] Start: 2001 Screening for malignant neoplasm of lung [facility] Start: 2001 Shingles Vaccine (1 of 2) Shingles Vaccine (1 of 2) [facility] Start: 2001 SHINGRIX VACCINE (1 of 2) SHINGRIX VACCINE (1 of 2) [facility] Start: 2001 Zoster Vaccines (1 of 2) Zoster Vaccines (1 of 2) [facility] Start: 1996 COLOGUARD (FIT-DNA) COLOGUARD (FIT-DNA) [facility] Start: 1996 Colonoscopy COLONOSCOPY [facility] Start: 1996 COLORECTAL CANCER SCREENING COLORECTAL CANCER SCREENING [facility] Start: [address] COLONOGRAPHY [facility] Start: 1996 FECAL OCCULT BLOOD FECAL OCCULT BLOOD [facility] Start: 1996 LIPID SCREEN LIPID SCREEN [facility] Start: 1996 Screening for malignant neoplasm of colon [facility] Start: 1996 SIGMOIDOSCOPY SIGMOIDOSCOPY [facility] Start: 1991 Mammography MAMMOGRAM [facility] Start: 1991 Screening for malignant neoplasm of breast Mammogram [facility] Start: 1969 ANNUAL PCP TEAM CHRONIC DISEASE VISIT ANNUAL PCP TEAM CHRONIC DISEASE VISIT [facility] Start: 1969 BP CONTROLLED (<130/80) BP CONTROLLED (<130/80) [facility] Start: 1969 Diabetes mellitus screening Diabetes Screening [facility] Start: 1969 Hepatitis B surface antibody level LDL CHOLESTEROL [facility] Start: 1969 HEPATITIS C SCREENING HEPATITIS C SCREENING [facility] Start: 1969 Hepatitis C screening [facility] Start: 1969 SPIROMETRY SPIROMETRY [facility] Start: 1967 COVID-19 Vaccine (1) COVID-19 Vaccine (1) [facility] Work Phone: Start: 1961 Diabetic foot examination Diabetes: Foot Exam [facility] Start: 1961 Glaucoma screening Diabetes: Retinopathy Screening [facility] Start: 1961 Preventive dental service Diabetes: Dental Exam [facility] Start: 1951 Annual Wellness Visit (AWV) Annual Wellness Visit (AWV) [facility] Start: 1951 Hemoglobin A1c measurement Diabetes: Hemoglobin A1C [facility] Start: 1951 Hepatitis B Vaccines (1 of 3 - 3-dose series) Hepatitis B Vaccines (1 of 3 - 3-dose series) [facility] Start: 1951 Hepatitis C screen Hepatitis C screen [facility] Work Phone: Start: 1951 Hepatitis C screening [place], [place] Start: 1951 Medicare Advantage Annual Wellness Visit (AWV) Medicare Advantage Annual Wellness Visit (AWV) [facility] Start: 1951 Screening for malignant neoplasm of colon [facility] Start: 1951 Screening for osteoporosis Bone Density Scan [facility] Anion gap measurement [facility] Work Phone: BUN/Creatinine ratio [facility] Work Phone: Calcium [Mass/volume ] in Serum or Plasma [facility] Work Phone: Carbon dioxide, tota l [Moles/volume] in Serum or Plasma [facility] Work Phone: Chloride [Moles/volu me] in Serum or Plasma [facility] Work Phone: Creatinine [Moles/vo lume] in Serum or Plasma [facility] Work Phone: End: 10-03-2024 CT Chest for screening WO contrast [facility] Work Phone: Comment on above: Once for 1 Occurrences starting 10/03/19 until 10/03/2024 End: 07-07-2023 DXA Skeletal system.axial Views for bone density [facility] Work Phone: Comment on above: Once for 1 Occurrences starting 07/07/20 until 07/07/2023 End: 03-30-2020 Event Monitor Event Monitor [facility] Services Routine Paroxysmal atrial fibrillation (HCC) 1 Occurrences starting 03/30/2020 until 03/30/2020 [place], [place] Comment on above: 1 Occurrences starting 03/30/2020 until 03/30/2020 Glucose [Mass/volume ] in Serum or Plasma [facility] Work Phone: Hematocrit [Volume Fraction] of Blood [facility] Work Phone: Hemoglobin [Mass/vol ume] in Blood [facility] Work Phone: Leukocytes [#/volume ] in Blood [facility] Work Phone: Mean corpuscular hem oglobin concentration determination [facility] Work Phone: Mean corpuscular hem oglobin determination [facility] Work Phone: Measurement of renal function [facility] Work Phone: Neutrophil count [facility] Work Phone: Neutrophil percent differential count [facility] Work Phone: OUTSIDE PROCEDURE SCAN OUTSIDE P ROCEDURE SCAN Procedures Ordered: 07/06/2023 [facility] [employer] Comment on above: Ordered: 07/06/2023 OUTSIDE PROCEDURE SCAN OUTSIDE P ROCEDURE SCAN Procedures Ordered: 12/31/2023 [facility] Comment on above: Ordered: 12/31/2023 OUTSIDE PROCEDURE SCAN OUTSIDE P ROCEDURE SCAN Procedures Ordered: 01/04/2024 [facility] Comment on above: Ordered: 01/04/2024 Patient Education [facility] Work Phone: Patient referral [facility] Work Phone: Platelets [#/volume] in Blood [facility] Work Phone: Potassium [Moles/vol ume] in Serum or Plasma [facility] Work Phone: Red blood cell count [facility] Work Phone: Red cell distributio n width determination [facility] Work Phone: Sodium [Moles/volume ] in Serum or Plasma [facility] Work Phone: Troponin I measurement [facility] Work Phone: Urea nitrogen [Mass/ volume] in Serum or Plasma [facility] Work Phone: End: 01-05-2024 US Head and neck soft tissue [facility] Work Phone: Comment on above: Once for 1 Occurrences starting 01/05/20 24 until 01/05/2024 [place] [facility] Immunizations Immunization Date Immunization Notes Care Provider [facility] 08-27-2021 Covid (Pfizer) Dr. Adarsh white Work Phone: [facility] Work Phone: 08-06-2021 Covid (Pfizer) Dr. Adarsh white Work Phone: [facility] Work Phone: 09-17-2020 pneumococcal polysaccharide vaccine, 23 valent Emiliano Chin [facility] Work Phone: 08-24-2019 influenza, injectabl e, quadrivalent, contains preservative Nelida Santana DO Work Phone: [facility] Work Phone: 08-24-2019 influenza virus vacc ine, unspecified formulation Adarsh Duggan MD Work Phone: [facility] 07-15-2019 influenza, seasonal, injectable Dr. Adarsh Duggan Work Phone: [facility] Work Phone: 07-15-2019 influenza, seasonal, injectable, preservative free Caryn Wood MD Work Phone: [facility] Work Phone: 04-09-2018 tetanus toxoid, redu wilmer diphtheria toxoid, and acellular pertussis vaccine, adsorbed Nelida Santana DO Work Phone: [facility] Work Phone: 01-06-2017 pneumococcal conjuga te vaccine, 13 valent Nelida Santana DO Work Phone: [facility] Work Phone: 04-09-2016 tetanus toxoid, redu wilmer diphtheria toxoid, and acellular pertussis vaccine, adsorbed Nelida Santana DO Work Phone: [facility] Work Phone: Payers Date Payer Category Payer Self-pay [id number] 2023 Medicare HMO HUMANA MEDICARE [id number] 2023 Private Health Insurance [id number] 2021 Medicare 2020 Medicare [id number] 2020 Unknown ANTHEM [facility] S AND BLUE [facility] AN[facility]M [facility] [id number] 2020-Present [phone] [address] [place] [address] HMO [id number] 2018 Medicare HUMANA MEDICARE HUMANA GOLD PLUS HMO xxxxxxxxx 2018-Present [address] [address] [place] [address] xxxxxxxxx [id number] 2014 Medicare MEDICARE MEDICAR E PART A AND B xxxxxxxxxxx 2014-Present [phone] [place] [address] xxxxxxxxxxx [id number] 2014 Medicare MEDICARE MEDICAR E PART A AND B [id number] 2014-Present [phone] [place] [address] [id number] 2014 Medicare [id number] 1950 Unknown [id number] 1950 Unknown [id number] 1950 Unknown [id number] Unknown Unknown [id number] Unknown [id number] Unknown [id number] Unknown [id number] Unknown [id number] Social History Date Type Detail Facility Start: 01-31-2020 End: 06-23-2025 Tobacco smoking status NHIS Current every day smoker [facility] Start: 09-14-1962 History of tobacco use Cigarette Smoker [facility] Work Phone: Start: 01-31-2020 End: 07-26-2024 Cigarettes smoked current (pack per day) - Reported [facility] Start: 01-31-2020 End: 05-28-2022 Alcohol intake Current non-drinker of alcohol (finding) [facility] Work Phone: Start: 1950 Sex Assigned At Not on file [facility] Work Phone: Exposure to SARS-CoV -2 (event) Unable to assess [facility] [place], [place] Start: 03-13-2020 End: 06-23-2025 Tobacco use and exposure Never used [facility] [place] Start: 01-11-2022 End: 05-25-2023 Exposure to SARS-CoV-2 (event) Not sure [facility] [place], [place] Start: 12-18-2021 End: 05-29-2022 Tobacco smoking status NHIS Unknown if ever smoked [facility] Start: 01-08-2021 None [facility] Work Phone: Start: 01-08-2021 Alone [facility] Work Phone: Start: 08-08-2020 Cigarettes [facility] Work Phone: Start: 1950 Sex Assigned At Female [facility] Work Phone: Start: 05-09-2021 End: 07-08-2022 History SDOH Alcohol Frequency 1 [facility] Work Phone: Start: 05-09-2021 History SDOH Financial 3 [facility] Work Phone: Start: 05-09-2021 End: 05-26-2022 History SDOH [facility] Work Phone: Start: 12-10-2022 History SDOH Alcohol Std Drinks 0 [facility] Start: 12-10-2022 End: 07-26-2024 Alcohol Use Disorder Identification Test - Consumption [AUDIT-C] [facility] How often to you hav e a drink containing alcohol? Never [facility] How many standard dr inks containing alcohol do you have on a typical day? Patient does not drink [facility] How hard is it for y ou to pay for the very basics like food, housing, medical care, and heating Very hard [facility] (I/We) worried wheth er (my/our) food would run out before (I/we) got money to buy more. Sometimes true [facility] [employer] In the past 12 month s, was there a time when you were not able to pay the mortgage or rent on time? No [facility] Start: 07-21-2023 End: 06-23-2025 Alcohol intake Ex-drinker (finding) [facility] [facility] How hard is it for y ou to pay for the very basics like food, housing, medical care, and heating Hard [facility] The food that (I/we) bought just didn't last, and (I/we) didn't have money to get more. Never true [facility] Are you now , , , , never or living with a partner? [facility] [employer] How hard is it for y ou to pay for the very basics like food, housing, medical care, and heating Not very hard [facility] Do you feel stress - tense, restless, nervous, or anxious, or unable to sleep at night because your mind is troubled all the time - these days [OSQ] Rather much [facility] [employer] Start: 04-14-2022 Sex Female (finding) [facility] Medical Equipment Procedure Code Equipment Code Equipment Origin al Text Equipment Identifier Dates Infuse into a ve nous catheter. [id number] Start: 02-19-2022 End: 05-21-2023 Goals Date Patient [...] score [AUDIT-C] 0 06/23/20 25 5:49 PM EDDesire Arnett RN [facility] 01-25-2025 Generalized anxiety disorder 7 item (TATIANNA-7) [facility] 02-07-2022 Functional status Ambulates [facility] Work Phone: 12-19-2021 Functional status Ambulates;Up ad meir [facility] Work Phone: [facility] Mental Status Date Assessment Result Facility 05-29-2022 Cognitive function Voice/Name [facility] Work Phone: 05-25-2022 Cognitive function Awake;Alert;A ppropriate;Fol lows Commands [facility] Work Phone: 02-07-2022 Cognitive function Voice/Name;To uch/Shaking;Li ght Pain;Deep Pain [facility] Work Phone: 12-19-2021 Cognitive function Voice/Name [facility] Work Phone: 12-18-2021 Cognitive function Awake;Alert;A ppropriate;Fol lows Commands [facility] Work Phone: Clinical Notes 01-21-2022 to 07-17-2025 Telephone Encounter - MITZI Metzger CNP - 07/17/2025 9:20 AM ESTTelephone Encounter - MITZI Metzger CNP - 07/17/2025 9:20 AM ESTDischarge InstructionsAttachmentsAttachments Note Date & Type Note Facility 07-17-2025 Telephone encounter Note Reviewed chart. Refill appropriate. RX sent. [facility] 07-17-2025 Miscellaneous Notes Reviewed chart. Refill appropriate. RX sent. [facility] 04/13/25 S: Patient spoke with [facility] nurse regarding Lyrica refill. B: Onset of symptoms CANDACE 01/25/25. A: Requesting refill on Lyrica 75 mg. Allergies and pharmacy confirmed. R: Advised a message will be sent to the office for provider review during normal office hours. Instructed no controled substances are refilled after hours. No further needs at this time. Reason for Disposition Caller requesting a CONTROLLED substance prescription refill (e.g., narcotics, ADHD medicines) Protocols used: Medication Refill and Renewal [id number] documented in this encounter [facility] 07-17-2025 Telephone encounter Note [facility] 04/13/25 [facility] 07-14-2025 Telephone encounter Note S: Patient spoke with [facility] nurse regarding Lyrica refill. B: Onset of symptoms CANDACE 01/25/25. A: Requesting refill on Lyrica 75 mg. Allergies and pharmacy confirmed. R: Advised a message will be sent to the office for provider review during normal office hours. Instructed no controled substances are refilled after hours. No further needs at this time. Reason for Disposition Caller requesting a CONTROLLED substance prescription refill (e.g., narcotics, ADHD medicines) Protocols used: Medication Refill and Renewal [id number] [facility] 07-11-2025 Telephone encounter Note Medication name: clonazePAM (KlonoPIN) [...] Dr. Duggan Date of last office visit: 01/25/2025 Date of next office visit: 08/02/2025 Date of last refill: (see medication tab): 07/03/2025 Updated/Validated preferred pharmacy: Yes Patient instructed to contact the pharmacy prior to picking up the medication: No [facility] 07-11-2025 Miscellaneous Notes Medication name: clonazePAM (KlonoPIN) 2 MG tablet [...] Dr. Duggan Date of last office visit: 01/25/2025 Date of next office visit: 08/02/2025 Date of last refill: (see medication tab): 07/03/2025 Updated/Validated preferred pharmacy: Yes Patient instructed to contact the pharmacy prior to picking up the medication: No documented in this encounter [facility] 07-03-2025 Telephone encounter Note Rx sent. OARRS report reviewed with no discrepancies. CSA needs signed at upcoming appointment on 08/02/2025. Follow up as scheduled. [facility] 07-03-2025 Miscellaneous Notes Rx sent. OARRS report [...] the medication: Yes documented in this encounter [facility] 07-03-2025 Telephone encounter Note Csa 07/26/24 [facility] 07-03-2025 Telephone encounter Note Medication name: clonazePAM [...] prior to picking up the medication: Yes [facility] 06-27-2025 Note Outreach to patient for recent ED visit for rt finger paronychia Pt scheduled/offered a 7 day follow-up visit or symptoms resolved: Next Office visit with PCP: 07/03/2025 LMOM, Patient instructed to call back with new or worsening symptoms or return to ED. [facility] 06-23-2025 Hospital Discharge instructions Alexandro Neville MD - 06/23/2025 6:28 PM EDT Warm compresses or warm soapy soaks. The following attachments cannot be sent through Care Everywhere.Paronychia (Montserratian)documented in this encounter [facility] 06-23-2025 Emergency department Note Associated Order(s): Incision [...] kg (125 lb) Height: 1.676 m (5' 6) The patient presented with a chief complaint [...] mL Infiltration Given by Other 06/23/251853) HYDROcodone-acetaminophen (Arlee) 5-325 MG per tablet 1 tablet (1 [...] PM PATIENT REFERRED TO: Adarsh Duggan MD [address] [place] [address], [place] [address] Schedule an appointment as soon as possible for a visit [facility] ED [address] [place] [address] If symptoms worsen DISCHARGE MEDICATIONS: New [...] 0 min Stress: Stress Concern Present (07/26/2024) [employer] - Occupational Stress Questionnaire Feeling of Stress : Rather much Social Connections: Moderately Integrated (07/26/2024) Social Connection and Isolation Panel [NHANES] Frequency of Communication with Friends and Family: More than three times a week Frequency of Social Gatherings with Friends and Family: Never Attends Sikhism Services: More than 4 times per year [...] the Last Year: No Alexandro Neville MD 06/23/251900 Patient arrived ambulatory to room 5 without difficulty. Patient complains of pain in right index finger for the past couple of days. Patient denies any injury to finger. documented in this encounter [facility] 06-23-2025 Emergency department Triage note Patient arrived ambulatory to room 5 without difficulty. Patient complains of pain in right index finger for the past couple of days. Patient denies any injury to finger. [facility] 06-23-2025 Physician Emergency department Note Associated Order(s): Incision and Drainage EMERGENCY DEPARTMENT ENCOUNTER Pt Name: Jonathan J Moise Birthdate 1950 Date of evaluation: 06/23/2025 [...] DEPARTMENT COURSE and DIFFERENTIAL DIAGNOSIS/MDM: Vitals: Vitals: 06/23/25 1746 BP: (!) 192/102 BP Location: Right arm Patient Position: Sitting Pulse: (!) 108 Resp: 16 Temp: 36.4 C (97.5 F) TempSrc: Temporal SpO2: 95% Weight: 56.7 kg (125 lb) Height: 1.676 m (5' 6) The patient presented with a chief complaint [...] mL Infiltration Given by Other 06/23/251853) HYDROcodone-acetaminophen (Arlee) 5-325 MG per tablet 1 tablet (1 [...] PM PATIENT REFERRED TO: Adarsh Duggan MD [address] [place] [address], [address] [facility] [address] Schedule an appointment as soon as possible for a visit [facility] ED [address] [facility] [address] If symptoms worsen DISCHARGE MEDICATIONS: [...] 0 min Stress: Stress Concern Present (07/26/2024) [employer] - Occupational Stress Questionnaire Feeling of Stress : Rather much Social Connections: Moderately Integrated (07/26/2024) Social Connection and Isolation Panel [NHANES] Frequency of Communication with Friends and Family: More than three times a week Frequency of Social Gatherings with Friends and Family: Never Attends Sikhism Services: More than 4 times per year [...] the Last Year: No Alexandro Neville MD 06/23/251900 [facility] 06-14-2025 Telephone encounter Note Rx sent. OARRS report reviewed with no discrepancies. CSA signed in March 2025. Follow up as scheduled. [facility] 06-14-2025 Miscellaneous Notes Rx sent. OARRS report [...] the medication: No documented in this encounter [facility] 06-13-2025 Telephone encounter Note 04/13/25 CSMA [facility] 06-12-2025 Telephone encounter Note Medication name: pregabalin [...] prior to picking up the medication: No [facility] 06-05-2025 Telephone encounter Note Reviewed chart. Refill appropriate. RX sent. [facility] 06-05-2025 Miscellaneous Notes Reviewed chart. Refill appropriate. [...] the medication: Yes documented in this encounter [facility] [employer] 06-05-2025 Telephone encounter Note Csa 07/26/24 [facility] [employer] 06-05-2025 Telephone encounter Note Medication name: clonazePAM [...] prior to picking up the medication: Yes [facility] [employer] 05-16-2025 Telephone encounter Note Reviewed chart. Refill appropriate. RX sent. [facility] 05-16-2025 Miscellaneous Notes Reviewed chart. Refill appropriate. [...] the medication: Yes documented in this encounter [facility] 05-16-2025 Telephone encounter Note Csa 04/13/25 [facility] 05-12-2025 Telephone encounter Note Medication name: pregabalin [...] prior to picking up the medication: Yes [facility] 04-10-2025 Telephone encounter Note Noted in appt [facility] 04-10-2025 Miscellaneous Notes Noted in appt Rx [...] the medication: N/A documented in this encounter [facility] 04-07-2025 Telephone encounter Note Rx sent. OARRS report reviewed with no discrepancies. CSA will need signed at upcoming appointment in July. Follow up as scheduled. [facility] 04-06-2025 Telephone encounter Note Medication name: [...] prior to picking up the medication: N/A T [facility] 01-25-2025 Evaluation + Plan note Associated Problem(s): Pure hypercholesterolemia Controlled, continue rosuvastatin [address] [facility] 01-25-2025 Evaluation + Plan note Associated Problem(s): Cigarette smoker Discussed smoking cessation she says she is trying to quit however she gives no indication she is working hard at it. [facility] 01-25-2025 Evaluation + Plan note Associated Problem(s): Depressive disorder Partial remission currently on no medication T [facility] 01-25-2025 Evaluation + Plan note Associated Problem(s): Anxiety Partial remission, continue clonazepam 2 mg twice a day as needed [facility] [employer] 01-25-2025 Miscellaneous Notes Associated Problem(s): Pure hypercholesterolemia [...] daily Associated Problem(s): Coronary artery disease involving [place] coronary artery of [place] heart without angina pectoris Stable, no recent angina continue metoprolol 100 mg daily, rosuvastatin 5 mg daily Associated Problem(s): Chronic obstructive pulmonary disease (HCC) Stable, continue Symbicort 160-4.52 puffs daily and albuterol as needed. Associated Problem(s): Neuropathy Stable, continue Lyrica 75 mg twice a day documented in this encounter [facility] 01-25-2025 Evaluation + Plan note Associated Problem(s): Ganglion cyst of wrist, left Currently this is not bothering her enough that she wants to have anything done with it she will keep a watch on it and if it gets worse or becomes more painful she will let me know and we will send her to a hand surgeon. [facility] 01-25-2025 Evaluation + Plan note Associated Problem(s): Fibromyalgia Stable, continue Lyrica 75 mg twice a day [facility] 01-25-2025 Evaluation + Plan note Associated Problem(s): Paroxysmal atrial fibrillation (HCC) Stable, continue Eliquis 5 mg twice a day and metoprolol 100 mg daily for rate control. T [facility] 01-25-2025 Evaluation + Plan note Associated Problem(s): Essential hypertension Initially elevated, recheck was normal continue metoprolol 100 mg daily [facility] 01-25-2025 Evaluation + Plan note Associated Problem(s): Coronary artery disease involving [place] coronary artery of [place] heart without angina pectoris Stable, no recent angina continue metoprolol 100 mg daily, rosuvastatin 5 mg daily T [facility] 01-25-2025 Evaluation + Plan note Associated Problem(s): Chronic obstructive pulmonary disease (HCC) Stable, continue Symbicort 160-4.52 puffs daily and albuterol as needed. T [facility] 01-25-2025 Evaluation + Plan note Associated Problem(s): Neuropathy Stable, continue Lyrica [address] [facility] 01-25-2025 History of Present illness Narrative [...] rate control. 3. Coronary artery disease involving [place] coronary artery of [place] heart without angina pectoris Assessment & Plan: [...] lb 6.4 oz (56.9 kg) Height: 5' 6 (1.676 m) Physical Exam Vitals and nursing [...] 01/25/2025 2:10 PM documented in this encounter [facility] 10-26-2024 Telephone encounter Note Reviewed chart. Refill appropriate. RX sent. [facility] 10-26-2024 Miscellaneous Notes Reviewed chart. Refill appropriate. RX sent. SAILAJA Lyrica 02/26/24 RFP Medication name: pregabalin (Lyrica) [...] the medication: No documented in this encounter [facility] 10-26-2024 Telephone encounter Note CSA Lyrica 02/26/24 RFP [facility] 10-26-2024 Telephone encounter Note Medication name: pregabalin [...] prior to picking up the medication: No [facility] [employer] 10-20-2024 Telephone encounter Note error [facility] 10-20-2024 Miscellaneous Notes error documented in this encounter [facility] 09-26-2024 Telephone encounter Note Reviewed chart. Refill appropriate. RX sent. [facility] [employer] 09-26-2024 Miscellaneous Notes Reviewed chart. Refill appropriate. [...] the medication: Yes documented in this encounter [facility] 09-26-2024 Telephone encounter Note CSA 02/26/24 [facility] 09-26-2024 Telephone encounter Note Medication name: pregabalin [...] prior to picking up the medication: Yes [facility] [employer] 07-26-2024 Evaluation + Plan note Associated Problem(s): Pure hypercholesterolemia Control unknown, currently off of her medications [facility] 07-26-2024 Miscellaneous Notes Associated Problem(s): Pure hypercholesterolemia [...] daily Associated Problem(s): Coronary artery disease involving [place] coronary artery of [place] heart without angina pectoris Stable, no recent angina Associated Problem(s): Chronic obstructive pulmonary disease (HCC) Stable on Symbicort and albuterol, highly encouraged her to quit smoking. Associated Problem(s): Myoclonic disorder She is having get significant number of tics today documented in this encounter [facility] 07-26-2024 Evaluation + Plan note Associated Problem(s): Cigarette smoker Discussed smoking cessation gives no indication she is ready to quit, offered her screening CT scan which she refused. [facility] 07-26-2024 Evaluation + Plan note Associated Problem(s): Depressive disorder Partial remission, currently on no medication. [facility] 07-26-2024 Evaluation + Plan note Associated Problem(s): Anxiety Currently active, continue clonazepam 2 mg twice a day as needed. Rx sent, OARRS report done, no inconsistencies, CS agreement in place [facility] 07-26-2024 Evaluation + Plan note Associated Problem(s): Paroxysmal atrial fibrillation (HCC) Stable, continue Eliquis 5 mg daily and metoprolol 100 mg daily [facility] 07-26-2024 Evaluation + Plan note Associated Problem(s): Coronary artery disease involving [place] coronary artery of [place] heart without angina pectoris Stable, no recent angina [facility] 07-26-2024 Evaluation + Plan note Associated Problem(s): Chronic obstructive pulmonary disease (HCC) Stable on Symbicort and albuterol, highly encouraged her to quit smoking. [facility] 07-26-2024 Evaluation + Plan note Associated Problem(s): Myoclonic disorder She is having get significant number of tics today [facility] 07-26-2024 History of Present illness Narrative Patient verified by last name and date of . Images from the original note were not included. [address] [address] Visit Type: Medicare Annual Wellness PCP: Adarsh [...] to quit smoking. Coronary artery disease involving [place] coronary artery of [place] heart without angina pectoris Stable, no recent [...] to make appointment with his / her smart energy specialist Safety: Safety Do you have a working [...] 0 min Stress: Stress Concern Present (07/26/2024) [employer] - Occupational Stress Questionnaire Feeling of Stress : Rather much Social Connections: Moderately Integrated (07/26/2024) Social Connection and Isolation Panel [NHANES] Frequency of Communication with Friends and Family: More than three times a week Frequency of Social Gatherings with Friends and Family: Never Attends Sikhism Services: More than 4 times per year [...] Objective BP 95/75 Pulse 85 Ht 5' 6 (1.676 m) Wt 128 lb 9.6 oz [...] 07/26/2024 2:41 PM documented in this encounter [facility] 07-26-2024 Instructions Adarsh Duggan MD - 07/26/2024 2:00 PM EST Number documented in this encounter [facility] 05-12-2024 Telephone encounter Note Reviewed chart. Refill appropriate. RX sent. [facility] 05-12-2024 Miscellaneous Notes Reviewed chart. Refill appropriate. [...] the medication: Yes documented in this encounter [facility] 05-12-2024 Telephone encounter Note Csa 02/26/24 [facility] 05-12-2024 Telephone encounter Note Medication name: pregabalin [...] [facility] picking up the medication[facility] Note Rx sent, OARRS report done, no inconsistencies, CS agreement in place [facility] 05-06-2024 Miscellaneous Notes Rx sent, OARRS report [...] the medication: Yes documented in this encounter [facility] 05-05-2024 Telephone encounter Note CSMA 07/21/23 [facility] 05-05-2024 Telephone encounter Note Medication name: clonazePAM [...] prior to picking up the medication: Yes [facility] 03-11-2024 Telephone encounter Note Rx sent, OARRS report done, no inconsistencies, CS agreement in place [facility] 03-11-2024 Miscellaneous Notes Rx sent, OARRS report [...] the medication: Yes documented in this encounter [facility] 03-11-2024 Telephone encounter Note CSA 07/21/23 [facility] 03-11-2024 Telephone encounter Note Medication name: clonazePAM [...] prior to picking up the medication: Yes [facility] 12-23-2023 Evaluation + Plan note Associated Problem(s): [...] for same concern with no significant findings, noting that a contrast-enhanced CT is much more sensitive for evaluation and recommended if symptoms persist. Patient was scheduled for ultrasound and cbc obtained. Further work up pending results. [facility] 12-23-2023 Miscellaneous Notes Associated Problem(s): Mass of [...] for same concern with no significant findings, noting that a contrast-enhanced CT is much more sensitive for evaluation and recommended if symptoms persist. Patient was scheduled for ultrasound and cbc [...] daily as needed. CS MA in place Associated Problem(s): Neuropathy Reviewed OARRS. Consistent with treatment plan. Patient was previously on Lyrica with relief of some of her symptoms. Discussed risks and benefits of medication including increased sedation risk for addiction. SIERRA RASHID obtained. Patient to follow-up as scheduled. documented in this encounter [facility] 12-23-2023 Evaluation + Plan note Associated Problem(s): Essential hypertension Blood pressure elevated. Continue current medications and follow-up as directed [facility] 12-23-2023 Evaluation + Plan note Associated Problem(s): Chronic obstructive pulmonary disease (HCC) Continue Symbicort and albuterol and recommend smoking cessation. Suspect mild exacerbation currently however patient declines treatment with oral steroid. No signs or symptoms suggesting need for antibiotic therapy [facility] 12-23-2023 Evaluation + Plan note Associated Problem(s): Anxiety Stable. Continue clonazepam 2 mg twice daily as needed. SIER[facility] RASHID in place [facility] 12-23-2023 Evaluation + Plan note Associated Problem(s): Neuropathy Reviewed OARRS. Consistent with treatment plan. Patient was previously on Lyrica with relief of some of her symptoms. Discussed risks and benefits of medication including increased sedation risk for addiction. SIERRA RASHID obtained. Patient to follow-up as scheduled. [facility] 12-23-2023 History of Present illness Narrative Patient [...] for same concern with no significant findings, noting that a contrast-enhanced CT is much more sensitive for evaluation and recommended if symptoms persist. Patient was scheduled for ultrasound and cbc [...] on the left side- been there awhile a good while Getting bigger. Tender to touch. No redness, [...] daily as needed for anxiety. 12/14/23 Yes MITZI Metzger CNP hydroCHLOROthiazide (HYDRODiuril) 25 MG tablet Take 1 [...] not taking: Reported on 12/23/2023 07/09/23 07/08/24 Deana Oh, LIBRARY MONITOR - AMY budesonide-formoterol (Symbicort) 160-4.5 MCG/ACT inhaler Inhale 2 [...] 12/23/2023 5:39 PM documented in this encounter [facility] 12-23-2023 Instructions MITZI Metzger CNP - 12/23/2023 2:00 PM EDT Please call Central Scheduling at [phone] to schedule your outpatient test Try taking the acetaminophen 650 mg with food for your arthritic pain. documented in this encounter [facility] 12-22-2023 Telephone encounter Note S: Patient spoke with [facility] nurse regarding lymph node enlargement B:onset symptoms/concern: I've always had it, but its gotten bigger in the last 2 weeks A: Patient complaints of lymph node under [...] no fever Protocols used: Lymph Nodes - [id number] [facility] 12-22-2023 Miscellaneous Notes S: Patient spoke with [facility] nurse regarding lymph node enlargement B:onset symptoms/concern: I've always had it, but its gotten bigger in the last 2 weeks A: Patient complaints of lymph node under [...] no fever Protocols used: Lymph Nodes - [id number] documented in this encounter [facility] 12-14-2023 Telephone encounter Note OARRS reviewed and consistent with treatment plan. Rx sent [facility] 12-14-2023 Miscellaneous Notes OARRS reviewed and consistent [...] the medication: Yes documented in this encounter [facility] 12-14-2023 Telephone encounter Note Medication name: clonazePAM [...] prior to picking up the medication: Yes [facility] 07-31-2023 Telephone encounter Note Called, states call cannot go through due to calling restrictions. Mailed letter to contact the office. [facility] 07-31-2023 Miscellaneous Notes Called, states call cannot [...] in 48 hours documented in this encounter [facility] 07-29-2023 Telephone encounter Note Called, states call cannot go through due to calling restrictions. [facility] 07-29-2023 Miscellaneous Notes Called, states call cannot [...] in 48 hours documented in this encounter [facility] 07-28-2023 Telephone encounter Note Called, states call cannot go through due to calling restrictions. [facility] 07-28-2023 Miscellaneous Notes Called, states call cannot [...] in 48 hours documented in this encounter [facility] 07-28-2023 Telephone encounter Note Called 2x, says number has calling restrictions that prevent the call from going through. Blood pressure remains slightly elevated. Recommend increasing Lisinopril to 30 mg daily and checking her BP again in 2 weeks. [facility] 07-27-2023 Telephone encounter Note Blood pressure remains slightly elevated. Recommend increasing Lisinopril to 30 mg daily and checking her BP again in 2 weeks. [facility] 07-27-2023 Miscellaneous Notes Blood pressure remains slightly [...] in 48 hours documented in this encounter [facility] 07-27-2023 Telephone encounter Note Christy came in [...] needed, outreach will occur in 48 hours [facility] 07-21-2023 Evaluation + Plan note Associated Problem(s): Osteoporosis Fosamax 70 mg weekly and calcium 1200 mg with vitamin D daily and weightbearing exercises such as walking. [facility] 07-21-2023 Miscellaneous Notes Associated Problem(s): Osteoporosis Fosamax [...] check. Associated Problem(s): Coronary artery disease involving [place] coronary artery of [place] heart without angina pectoris Stable, has had no recent angina continue metoprolol 100 mg daily and lisinopril 20 mg daily Associated Problem(s): Chronic obstructive pulmonary disease (HCC) Stable, continue Symbicort and albuterol and stop smoking documented in this encounter [facility] 07-21-2023 Evaluation + Plan note Associated Problem(s): Anxiety Stable, continue Klonopin 2 mg twice a day as needed. [facility] 07-21-2023 Evaluation + Plan note Associated Problem(s): Paroxysmal atrial fibrillation (HCC) Stable, continue Eliquis 5 mg daily and metoprolol as rate control. [facility] 07-21-2023 Evaluation + Plan note Associated Problem(s): Essential hypertension Blood pressure was initially elevated, recheck was still little high continue metoprolol 100 mg daily and lisinopril 20 mg daily and hydrochlorothiazide 25 mg daily and follow-up in 1 week for blood pressure check. [facility] 07-21-2023 Evaluation + Plan note Associated Problem(s): Coronary artery disease involving [place] coronary artery of [place] heart without angina pectoris Stable, has had no recent angina continue metoprolol 100 mg daily and lisinopril 20 mg daily [facility] 07-21-2023 Evaluation + Plan note Associated Problem(s): Chronic obstructive pulmonary disease (HCC) Stable, continue Symbicort and albuterol and stop smoking [facility] 07-21-2023 History of Present illness Narrative Patient verified by last name and date of . Images from the original note were not included. [facility] [id number] Visit type: Established Patient Reason for Visit: [...] as rate control. Coronary artery disease involving [place] coronary artery of [place] heart without angina pectoris Stable, has had [...] PCP - General Patt Lerma RN as Machine Stoppage Frequency Checker Over the past 2 weeks, how often [...] BP (!) 151/73 Pulse 67 Ht 5' 6 (1.676 m) Wt 135 lb (61.2 kg) [...] 07/21/2023 3:09 PM documented in this encounter [facility] 07-09-2023 Telephone encounter Note Notified, agreeable, fosamax pended. [facility] 07-09-2023 Telephone encounter Note ----- Message from [...] will have a fracture in the future. [facility] 07-09-2023 Miscellaneous Notes Notified, agreeable, fosamax pended. [...] in the future. documented in this encounter [facility] 05-27-2023 Telephone encounter Note . [facility] 05-27-2023 Miscellaneous Notes . documented in this encounter [facility] 05-25-2023 History of Present illness Narrative Images [...] days ago. 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 Physical Exam Constitutional: General: She is not in acute distress. Appearance: She is not ill-appearing or diaphoretic. HENT: Head: Normocephalic and atraumatic. Right Ear: Tympanic membrane, ear canal and external ear normal. Left Ear: Tympanic membrane, ear canal and external ear normal. Nose: Rhinorrhea present. Rhinorrhea is clear. Mouth/Throat: Lips: [place]. Mouth: Mucous membranes are moist. Pharynx: Oropharynx [...] 05/25/2023 2:11 PM documented in this encounter [facility] 03-30-2023 Telephone encounter Note Rx sent to requested pharmacy. [facility] 03-30-2023 Miscellaneous Notes Rx sent to requested [...] medication tab): 09.09.22 documented in this encounter [facility] 03-30-2023 Telephone encounter Note There is already another request routed to you for the clonazepam. [facility] 03-30-2023 Telephone encounter Note (1) Medication name: [...] of last refill (see medication tab): 09.09.22 [facility] 03-02-2023 Telephone encounter Note Scheduled, order pended. [facility] 03-02-2023 Miscellaneous Notes Scheduled, order pended. Please [...] the medication: No documented in this encounter [facility] 03-02-2023 Telephone encounter Note Please have patient come in for random urine drug screen. Refill sent. Oarrs reviewed and consistent with treatment plan. [facility] 03-02-2023 Telephone encounter Note CSA 06/24/22 UDS not found [facility] 03-02-2023 Telephone encounter Note Medication name: clonazePAM [...] prior to picking up the medication: No [facility] 01-24-2023 Hospital Discharge instructions Temo Hicks MD - 01/24/2023 4:[address] Nice about possible physical therapy referral and retirement pain management. The following attachments cannot be sent through Care Everywhere.Hip Pain ([place])Vertebral Compression Fracture ED ([place])documented in this encounter [facility] 01-24-2023 Emergency department Note EMERGENCY DEPARTMENT ENCOUNTER [...] relief. Has tried Tylenol lidocaine patch and figz-[id number] medications without relief. Nursing Notes were reviewed. [...] kg (148 lb) Height: 1.676 m (5' 6) Medical Decision Making and ED Course The [...] fracture of L1 lumbar vertebra, initial encounter ([facility]) DISPOSITION Discharge 01/24/2023 04:34:01 PM PATIENT REFERRED TO: Adarsh Duggan MD [address] [place] [address] [facility] [id number] In 3 days DISCHARGE MEDICATIONS: New Prescriptions [...] Emergency Medicine Provider Temo Hicks MD 01/24/23 4089 Pt ambulatory to room 15 with c/o left hip pain x 3 days with no known injury. Pt states pain is constant pain that radiates to leg with pain increased with weightbearing and ambulation. documented in this encounter [facility] 01-24-2023 Emergency department Triage note Pt ambulatory to room 15 with c/o left hip pain x 3 days with no known injury. Pt states pain is constant pain that radiates to leg with pain increased with weightbearing and ambulation. [facility] 01-24-2023 Physician Emergency department Note EMERGENCY DEPARTMENT [...] relief. Has tried Tylenol lidocaine patch and wlgb-ydb-[id number] medications without relief. Nursing Notes were reviewed. [...] kg (148 lb) Height: 1.676 m (5' 6) Medical Decision Making and ED Course The [...] fracture of L1 lumbar vertebra, initial encounter ([facility]) DISPOSITION Discharge 01/24/2023 04:34:01 PM PATIENT REFERRED TO: Adarsh Duggan MD [address] [facility], [address] [facility] [id number] In 3 days DISCHARGE MEDICATIONS: New Prescriptions [...] Emergency Medicine Provider Temo Hicks MD 01/24/23 1553 [facility] 01-05-2023 Telephone encounter Note Reviewed chart. Refill appropriate. RX sent. [facility] 01-05-2023 Miscellaneous Notes Reviewed chart. Refill appropriate. RX sent. Reviewed chart. Refill appropriate. RX sent. Oarrs reviewed and consistent with treatment plan. Will need urine drug screen at next appt. CSA 06/24/22 NO URINE DRUG SCREEN ON FILE Name of caller: Jonathan Contact phone number: [phone] Relationship to Patient: patient Provider: Dr Duggan Practice: [facility] Chief Complaint/Reason for Call: Pt states she was advised this would be called in when she was at her appt 12/30. 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 Pt is requesting it is called in this morning and a call back once completed. Please advise. Best time of day caller can be reached: any Patient advised that office/PCP has 24-48 business hours to return their call: No documented in this encounter [facility] 01-05-2023 Telephone encounter Note Reviewed chart. Refill appropriate. RX sent. Oarrs reviewed and consistent with treatment plan. Will need urine drug screen at next appt. [facility] 01-05-2023 Telephone encounter Note CSA 06/24/22 NO URINE DRUG SCREEN ON FILE [facility] 01-05-2023 Telephone encounter Note Name of caller: Jonathan Contact phone number: [phone] Relationship to Patient: patient Provider: Dr Duggan Practice: [facility] Chief Complaint/Reason for Call: Pt states she was advised this would be called in when she was at her appt 12/30. 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 Pt is requesting it is called in this morning and a call back once completed. Please advise. Best time of day caller can be reached: any Patient advised that office/PCP has 24-48 business hours to return their call: No [facility] 12-02-2022 Telephone encounter Note Reviewed chart. Refill appropriate. Rx sent. Oarrs reviewed and appropriate with treatment plan. [facility] 12-02-2022 Miscellaneous Notes Reviewed chart. Refill appropriate. Rx sent. Oarrs reviewed and appropriate with treatment plan. Prescription Request: Last medication check: 03/19/22 Last physical exam: 06/24/22 Next scheduled appointment: 12/30/22 CSA on file (date): 06/24/22 Last urine drug screen: 09/30/21 Last date of refill on this medication: 11/04/22 documented in this encounter [facility] 12-02-2022 Telephone encounter Note Prescription Request: Last medication check: 03/19/22 Last physical exam: 06/24/22 Next scheduled appointment: 12/30/22 CSA on file (date): 06/24/22 Last urine drug screen: 09/30/21 Last date of refill on this medication: 11/04/22 [facility] 11-05-2022 Telephone encounter Note LM to relay message Adarsh Duggan MD 1 hour ago (3:01 PM) DW Both prescriptions were refused, but clonazepam was just sent in yesterday for 60 tablets and the metoprolol was sent in in August for 90 tablets with 1 refill. [facility] 11-05-2022 Miscellaneous Notes LM to relay message [...] medication tab): 09.09.22 documented in this encounter [facility] 11-05-2022 Telephone encounter Note Both prescriptions were refused, but clonazepam was just sent in yesterday for 60 tablets and the metoprolol was sent in in August for 90 tablets with 1 refill. [facility] 11-05-2022 Telephone encounter Note CSA 06/24/22 [facility] 11-05-2022 Telephone encounter Note Ordering provider: Dr. [...] of last refill (see medication tab): 09.09.22 [facility] 11-04-2022 Telephone encounter Note Reviewed chart. Refill appropriate. Rx sent. Oarrs reviewed and consistent with treatment plan [facility] [facility] 11-04-2022 Miscellaneous Notes Reviewed chart. Refill appropriate. Rx sent. Oarrs reviewed and consistent with treatment plan Prescription Request: Last medication check: 05/26/22 Last physical exam: 06/24/22 Next scheduled appointment: 12/30/22 CSA on file (date): 07/05/22 Last urine drug screen: 09/30/21 Last date of refill on this medication 10/09/22 documented in this encounter [facility] 11-04-2022 Telephone encounter Note Prescription Request: Last medication check: 05/26/22 Last physical exam: 06/24/22 Next scheduled appointment: 12/30/22 CSA on file (date): 07/05/22 Last urine drug screen: 09/30/21 Last date of refill on this medication 10/09/22 [facility] 10-28-2022 History of Present illness Narrative EMR [...] AIDS. PT. WAS AGREEABLE. PT. STATED HER ROD DRAWER WANTED HER TO GET A PACEMAKER. PT. HASN'T SEEN HER ROD DRAWER SINCE JANUARY 2022. CM ENCOURAGED THE PT. TO CALL HER ROD DRAWER TODAY TO MAKE A FOLLOW-UP APPT. PT. WAS AGREEABLE. PLAN: PT. WILL GET A BP CUFF TO START MONITORING HER BP'S, CONTINUE TO REDUCE THE AMOUNT OF CIGARETTES SHE IS SMOKING. CALL HER ROD DRAWER TO MAKE A FOLLOW-UP APPT. CM WILL CONTINUE TO FOLLOW-UP. SCHEDULED NEXT OUTREACH. documented in this encounter [facility] 10-13-2022 Telephone encounter Note LM for patient: Adarsh Duggan MD 4 days ago DW Rx sent, this is to be used twice a day regularly and then the albuterol is to be used between times if needed this is not a rescue inhaler. The computer indicates this is not covered by insurance so it could be very expensive. [facility] 10-13-2022 Miscellaneous Notes LM for patient: Adarsh [...] Name of caller: Christy Contact phone number: [phone] Relationship to Patient: patient Provider: Olga Lidia Practice: [facility] Chief Complaint/Reason for Call: Pt. Would like to go back to the Symbicort Rx. States the Symbicort works faster than the albuterol that was prescribed. Please advise. Best time of day caller can be reached: Any Patient advised that office/PCP has 24-48 business hours to return their call: Yes documented in this encounter [facility] 10-09-2022 Telephone encounter Note LM for patient Adarsh Duggan MD 12 minutes ago (3:47 PM) DW Rx sent, this is to be used twice a day regularly and then the albuterol is to be used between times if needed this is not a rescue inhaler. The computer indicates this is not covered by insurance so it could be very expensive. [facility] 10-09-2022 Telephone encounter Note Rx sent, this is to be used twice a day regularly and then the albuterol is to be used between times if needed this is not a rescue inhaler. The computer indicates this is not covered by insurance so it could be very expensive. [facility] [employer] 10-09-2022 Telephone encounter Note Name of caller: Christy Contact phone number: [phone] Relationship to Patient: patient Provider: Olga Lidia Practice: [facility] Chief Complaint/Reason for Call: Pt. Would like to go back to the Symbicort Rx. States the Symbicort works faster than the albuterol that was prescribed. Please advise. Best time of day caller can be reached: Any Patient advised that office/PCP has 24-48 business hours to return their call: Yes [facility] [employer] 10-06-2022 Telephone encounter Note Reviewed chart. Refill appropriate. Rx sent. Oarrs reviewed and consistent with treatment plan. [facility] [employer] 10-06-2022 Miscellaneous Notes Reviewed chart. Refill appropriate. Rx sent. Oarrs reviewed and consistent with treatment plan. Prescription Request: Last medication check: 03/19/22 Last physical exam: 06/24/22 Next scheduled appointment: 12/30/22 CSA on file (date): 07/09/22 Last urine drug screen: 09/18/21 Last date of refill on this medication 09/11/22 documented in this encounter [facility] [employer] 10-06-2022 Telephone encounter Note Prescription Request: Last medication check: 03/19/22 Last physical exam: 06/24/22 Next scheduled appointment: 12/30/22 CSA on file (date): 07/09/22 Last urine drug screen: 09/18/21 Last date of refill on this medication 09/11/22 [facility] [employer] 09-05-2022 History of Present illness Narrative EMR [...] note were not included. MITZI Burton CNP Clinical Cooperative Extension Agent 10 minutes ago (10:26 AM) HL I agree that a maintenance inhaler would be appropriate. Does she remember how high her BP was getting up to on the Symbicort and what dose she was on? Left a message to return call. Images from the original note were not included. MITZI Burton CNP Clinical Cooperative Extension Agent 10 minutes ago (10:26 AM) HL I agree that a maintenance inhaler would be appropriate. Does she remember how high her BP was getting up to on the Symbicort and what dose she was on? Left a message to return call. Images from the original note were not included. MITZI Burton CNP Clinical Cooperative Extension Agent 10 minutes ago (10:26 AM) HL I agree that a maintenance inhaler would be appropriate. Does she remember how high her BP was getting up to on the Symbicort and what dose she was on? Left a message to return call. Mailed letter to contact the office. documented in this encounter [facility] 05-28-2022 Hospital Discharge instructions Berenice Zelaya DO - 05/28/2022 6:13 PM EDT Please return the emergency department if your pain worsens or changes. Otherwise please try pain medications at home and follow-up with provider. The following attachments cannot be sent through Care Everywhere.Cervical: Exercises (Montserratian)documented in this encounter [facility] Work Phone: 02-19-2022 Miscellaneous Notes Post PVAI orders pended for signature - office will call to schedule Driss Joya documented in this encounter [facility] 02-07-2022 Miscellaneous Notes Patient underwent cryotherapy PVI with Dr. Wood on 02/03. She will need a follow-up appointment in 3 months. Andrea Kevin documented in this encounter [facility] 02-06-2022 Evaluation note Diagnosis Onset Date Atrial fibrillation with RVR February 06, 2022 acute Elevated troponin February 06, 2022 acute Atherosclerotic heart diseas e of [place] coronary artery without angina pectoris chronic Dizziness resolved Hypotension resolved [facility] Work Phone: [phone] NoteHNO ID: [id number] Author: Dillon Jerry RN Service: Care Management [...] planning services during this admission, please call [phone]. Dillon Jerry RN February 04, 2022 10:42 AM SIGNATURE: Dillon Jerry RN PATIENT NAME: Christy Moise DATE: February 04, 2022 TIME: 10:[facility] NoteHNO ID: [id number] Author: Priyanka Chase APRN.CRNA Service: Anesthesiology Author Type: Nurse Rn Clinical Appeals Type: Anesthesia Procedure Notes Filed: 02/03/2022 9:55 AM Note Text: ANESTHESIOLOGY PROCEDURE NOTE Airway General Information Procedure Start Time/Medication Administration: 02/03/2022 9:41 AM Patient location during procedure: OR Timeout Performed Pre-procedure: timeout performed Consent Obtained: Yes Patient identity confirmed: arm band Staffing OUTBOUND SALES SPECIALIST: Priyanka Chase APRN.OUTBOUND SALES SPECIALIST Performed by: CYNDIE Indications and Patient Condition [...] no Airway not difficult SIGNATURE: Priyanka Chase APRN.OUTBOUND SALES SPECIALIST PATIENT NAME: Christy Moise DATE: February 03, 2022 TIME: 9:54 AM CSN: [id number] Miscellaneous Notes* Telephone Encounter - [...] before the procedure. 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 You will stayovernight for observation. Patient should continue to take medications as prescribed the morning ofthe procedure with just a sip of water but discontinue Multaq 1 week prior to the procedure Covid test on 02/01/22 at 11am at the [address] [address] Unable to leave message on daughters phone and other numbers listed are disconnected Driss Joya * Telephone Encounter - Driss Joya - 01/27/2022 1:22 PM EDT Pre procedure covid test ordered Driss Joya [facility] NoteHNO ID: [id number] Author: Caryn Wood MD Service: ? Author Type: Physician Type: Progress Notes Filed: 01/21/2022 6:30 PM Note Text: PRIMARY CARE PHYSICIAN: Renee Espinal, [address] [address] REFERRING PHYSICIAN: Juan C Gaytan MD ([facility]) [address] [address] Patient Care Team: Adarsh Duggan as PCP - General (Family Practice) Jose Dave as Nurse Practitioner (Cardiology) Juan C Gaytan as Specialty Commercial Technician (Cardiology) CHIEF COMPLAINT: Evaluation of arrhythmia, atrial fibrillation HISTORY OF PRESENT ILLNESS: Ms. Moise is a 71 year old female who presents today with her daughter/family for evaluation of symptomatic paroxysmal atrial fibrillation. She has a history of coronary artery disease, had inferior STEMI in April 2018. She underwent emergent cardiac catheterization at [facility], had PCI/stent to the proximal RCA. In [...] she underwent attempts at electrical cardioversion in [facility] ER in about 06/2021, which were described as unsuccessful --- she was then admitted to the hospital and spontaneously converted back to sinus rhythm. I do not find any other records of electrical cardioversion, either electively or emergently including fairly extensive review of [facility] records here in the [employer] EMR. So I think primarily she has [...] long-term use indication: stroke prevention atrial fibrillation ([id number] = 4) - At risk for stroke [id number] = 4 (HTN, age, CAD, female gender) - Atherosclerotic heart disease - COPD (chronic obstructive pulmonary disease) (HCC) - Coronary artery disease involving [place] coronary artery of [place] heart without angina pectoris s/p inferior STEMI 04/2018, s/p PCI/stent to RCA - Dizziness - History of coronary artery stent placement - History of ST elevation myocardial infarction (STEMI) - HLD (hyperlipidemia) - Hypertension - Irritable bowel syndrome - Left atrial enlargement - Lightheadedness - shelter current use of antiarrhythmic drug indication: symptomatic [...] PCI/stent to RCA by Dr. Levy at [facility] - Thyroid nodule - Tobacco abuse PAST SURGICAL HISTORY Procedure Laterality Date - BREAST SURGERY HX Left breast - cyst removal - CHEST X-RAY 12/18/2021 [facility] - ECHO 01/08/2021 [facility] - EVENT MONITOR 03/30/2019 [facility] - HEMORRHOIDECTOMY - HYSTERECTOMY HX - INSERT INTRACORONARY STENT 2017 PCI/stent to RCA; Dr. Levy, [facility] - LEFT HEART CATH,PERCUTANEOUS 05/09/2018 ST Elevation @ [facility] - THYROIDECTOMY TOTAL/COMPLETE SOCIAL HISTORY Social [...] cardiac issues or symptoms. [facility] History of Present illness Narrative* Caryn Wood MD - 01/21/2022 10:20 AM EDT PRIMARY CARE PHYSICIAN: Renee Espinal, [address] [address] REFERRING PHYSICIAN: Juan C Gaytan MD ([facility]) [address] [address] Patient Care Team: Adarsh Duggan as PCP - General (Family Practice) Jose Dave as Nurse Practitioner (Cardiology) Juan C Gaytan as Specialty Commercial Technician (Cardiology) CHIEF COMPLAINT: Evaluation of arrhythmia, atrial fibrillation HISTORY OF PRESENT ILLNESS: Ms. Moise is a 71 year old female who presents today with her daughter/family for evaluation of symptomatic paroxysmal atrial fibrillation. She has a history of coronary artery disease, had inferior STEMI in April 2018. She underwent emergent cardiac catheterization at [facility], had PCI/stent to the proximal RCA. In [...] she underwent attempts at electrical cardioversion in [facility] ER in about 06/2021, which were described as unsuccessful --- she was then admitted to the hospital and spontaneously converted back to sinus rhythm. I do not find any other records of electrical cardioversion, either electively or emergently including fairly extensive review of [facility] records here in the [facility] EMR. So I think primarily she [...] long-term use indication: stroke prevention atrial fibrillation ([id number] = 4) At risk for stroke [id number] = 4 (HTN, age, CAD, female gender) Atherosclerotic heart disease COPD (chronic obstructive pulmonary disease) (HCC) Coronary artery disease involving [place] coronary artery of [place] heart without angina pectoris s/p inferior STEMI 04/2018, s/p PCI/stent to RCA Dizziness History of coronary artery stent placement History of ST elevation myocardial infarction (STEMI) HLD (hyperlipidemia) Hypertension Irritable bowel syndrome Left atrial enlargement 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 Levy at [facility] Thyroid nodule Tobacco abuse PAST SURGICAL HISTORY Procedure Laterality Date BREAST SURGERY HX Left breast - cyst removal CHEST X-RAY 12/18/2021 [facility] ECHO 01/08/2021 [facility] EVENT MONITOR 03/30/2019 [facility] HEMORRHOIDECTOMY HYSTERECTOMY HX INSERT INTRACORONARY STENT 2017 PCI/stent to RCA; Dr. Levy, [facility] LEFT HEART CATH,PERCUTANEOUS 05/09/2018 ST Elevation @ [facility] THYROIDECTOMY TOTAL/COMPLETE SOCIAL HISTORY Social History Tobacco [...] hemoptysis. Cardiovascular: Positive for chest pain (chest burning during arrhythmia) and palpitations. Negative for orthopnea, leg swelling and PND. Gastrointestinal: Negative for abdominal pain, blood in stool, nausea and vomiting. Genitourinary: Negative for hematuria. Skin: Negative for rash. Neurological: Positive for dizziness (during arrhythmia). Negative for loss of consciousness. All other systems reviewed and are negative. PHYSICAL EXAMINATION: BP 142/72 Pulse 52 Resp 18 Ht 5' 7 (1.70m) Wt 145 lb (65.8kg) SpO2 96[room [...] Sinus bradycardia 51 bpm; normal conduction intervals (MN 150 ms, QRS 82 ms); QTc 488 ms; appropriate on dronedarone; possible left atrial enlargement; nonspecific ST abnormality I have personally reviewed the Electrocardiogram. ASSESSMENT/PLAN: 1. Paroxysmal atrial fibrillation (HCC) - ICD9: 427.31, ICD10: I48.0 (primary diagnosis) 2. 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 Coronary artery disease involving [place] coronary artery of [place] heart without angina pectoris- ICD9: 414.01, ICD10: [...] is based on risk profile. She has [id number] score of four, is considered at high [...] Level: 4 - Moderate [facility] in [facility]* Diagnosis Onset Date Resolution Status Atrial fibrillation with RVR acute Creatinine elevation acute Lightheadedness acute Nausea acute [facility] Work Phone: Evaluation note* Diagnosis Onset Date Resolution Status Atrial fibrillation with RVR acute Creatinine elevation acute Essential hypertension acute Lightheadedness acute Nausea acute History of coronary artery stent placement April [facility] Work Phone: Evaluation note* Diagnosis Paroxysmal atrial fibrillation (HCC)- Primary Atrial fibrillation Palpitations 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 Coronary artery disease involving [place] coronary artery of [place] heart without angina pectoris History of ST elevation myocardial infarction (STEMI) Old myocardial infarction S/P angioplasty with stent Other postprocedural status At risk for stroke Other specified personal history presenting hazards to health Anticoagulant long-term use Long-term (current) use of anticoagulants Tobacco abuse Tobacco use disorder Chronic obstructive pulmonary disease, unspecified COPD type (HCC) [facility] Diagnosis Pre-procedure lab exam- Primary Pre-procedural laboratory examination Paroxysmal atrial fibrillation (HCC) Atrial fibrillation Coronary artery disease involving [place] coronary artery of [place] heart without angina pectoris Palpitations shelter current use of antiarrhythmic drug Anticoagulant long-term use Long-term (current) use of anticoagulants Chronic obstructive pulmonary disease, unspecified COPD type (HCC) Tobacco abuse Tobacco use disorder [facility]* Diagnosis Persistent atrial fibrillation (HCC)- Primary Atrial fibrillation Dyspnea, unspecified type [facility]* Diagnosis Neck pain- Primary Cervicalgia Torticollis Torticollis, unspecified documented in this encounter [facility] Work Phone: Evaluation note* Diagnosis Neck pain- Primary Cervicalgia Torticollis Torticollis, unspecified documented in this encounter [facility] Work Phone: Evaluation note* Diagnosis Anxiety Anxiety state, unspecified [facility] Diagnosis Acute hip pain, left- Primary Closed compression fracture of L1 lumbar vertebra, initial encounter ([facility]* Diagnosis Chronically on benzodiazepine therapy- Primary Anxiety Anxiety state, unspecified [facility] Diagnosis Viral URI with cough- Primary Chronic obstructive pulmonary disease, unspecified COPD type (HCC) Smoker Tobacco use disorder [facility] Diagnosis Menopause Symptomatic menopausal or female climacteric states [facility] Diagnosis Osteoporosis, unspecified osteoporosis type, unspecified pathological fracture presence- Primary [facility]* Diagnosis Medicare annual wellness visit, subsequent- Primary Anxiety Anxiety state, unspecified Peripheral vascular disease, unspecified (HCC) Peripheral vascular disease, unspecified Chronic obstructive pulmonary disease, unspecified COPD type (HCC) Essential hypertension Unspecified essential hypertension Coronary artery disease involving [place] coronary artery of [place] heart without angina pectoris Paroxysmal atrial fibrillation (HCC) Atrial fibrillation Pure hypercholesterolemia Osteoporosis without current pathological fracture, unspecified osteoporosis type [facility] Diagnosis Anxiety Anxiety state, unspecified [facility] Diagnosis Mass of left side of neck- Primary Neuropathy Mononeuritis of unspecified site Anxiety Anxiety state, unspecified Chronic obstructive pulmonary disease, unspecified COPD type (HCC) Essential hypertension Unspecified essential hypertension [facility] Diagnosis Mass of left side of neck [facility]* Diagnosis Anxiety Anxiety state, unspecified [facility]* Diagnosis Neuropathy Mononeuritis of unspecified site [facility]* [...] Unspecified essential hypertension Coronary artery disease involving [place] coronary artery of [place] heart without angina pectoris Paroxysmal atrial fibrillation [...] (HCC) Myoclonic disorder Coronary artery disease involving [place] coronary artery of [place] heart without angina pectoris Pure hypercholesterolemia Depressive disorder Depressive disorder, not elsewhere classified Anxiety Anxiety state, unspecified Cigarette smoker Tobacco use disorder Screening for diabetes mellitus Influenza vaccine refused [facility]* Diagnosis Encounter for screening for malignant neoplasm of respiratory organs- Primary [facility] Diagnosis Anxiety Anxiety state, unspecified [facility] Diagnosis Nicotine dependence, cigarettes, uncomplicated- Primary [facility] Diagnosis Anxiety Anxiety state, unspecified [facility] Diagnosis Chronic obstructive pulmonary disease, [...] Unspecified essential hypertension Coronary artery disease involving [place] coronary artery of [place] heart without angina pectoris Paroxysmal atrial fibrillation [...] (HCC) Myoclonic disorder Coronary artery disease involving [place] coronary artery of [place] heart without angina pectoris Pure hypercholesterolemia Depressive disorder Depressive disorder, not elsewhere classified Anxiety Anxiety state, unspecified Cigarette smoker Tobacco use disorder Screening for diabetes mellitus Influenza vaccine refused Neuropathy Mononeuritis of unspecified site [facility] Diagnosis Chronic obstructive pulmonary disease, [...] Unspecified essential hypertension Coronary artery disease involving [place] coronary artery of [place] heart without angina pectoris Paroxysmal atrial fibrillation [...] (HCC) Myoclonic disorder Coronary artery disease involving [place] coronary artery of [place] heart without angina pectoris Pure hypercholesterolemia Depressive disorder Depressive disorder, not elsewhere classified Anxiety Anxiety state, unspecified Cigarette smoker Tobacco use disorder Screening for diabetes mellitus Influenza vaccine refused Cigarette smoker Tobacco use disorder [facility] [...] Unspecified essential hypertension Coronary artery disease involving [place] coronary artery of [place] heart without angina pectoris Paroxysmal atrial fibrillation [...] (HCC) Myoclonic disorder Coronary artery disease involving [place] coronary artery of [place] heart without angina pectoris Pure hypercholesterolemia Depressive disorder Depressive disorder, not elsewhere classified Anxiety Anxiety state, unspecified Cigarette smoker Tobacco use disorder Screening for diabetes mellitus Influenza vaccine refused Neuropathy Mononeuritis of unspecified site [facility]* [...] Unspecified essential hypertension Coronary artery disease involving [place] coronary artery of [place] heart without angina pectoris Paroxysmal atrial fibrillation [...] (HCC) Myoclonic disorder Coronary artery disease involving [place] coronary artery of [place] heart without angina pectoris Pure hypercholesterolemia Depressive disorder Depressive disorder, not elsewhere classified Anxiety Anxiety state, unspecified Cigarette smoker Tobacco use disorder Screening for diabetes mellitus Influenza vaccine refused Chronic obstructive pulmonary disease, unspecified COPD type (HCC)- Primary Paroxysmal atrial fibrillation (HCC) Atrial fibrillation Coronary artery disease involving [place] coronary artery of [place] heart without angina pectoris Neuropathy Mononeuritis of unspecified site Essential hypertension Unspecified essential hypertension Fibromyalgia Unspecified myalgia and myositis Cigarette smoker Tobacco use disorder Anxiety Anxiety state, unspecified Pure hypercholesterolemia Ganglion cyst of wrist, left Depressive disorder Depressive disorder, not elsewhere classified [facility] [...] Unspecified essential hypertension Coronary artery disease involving [place] coronary artery of [place] heart without angina pectoris Paroxysmal atrial fibrillation [...] (HCC) Myoclonic disorder Coronary artery disease involving [place] coronary artery of [place] heart without angina pectoris Pure hypercholesterolemia Depressive disorder Depressive disorder, not elsewhere classified Anxiety Anxiety state, unspecified Cigarette smoker Tobacco use disorder Screening for diabetes mellitus Influenza vaccine refused Chronic obstructive pulmonary disease, unspecified COPD type (HCC)- Primary Paroxysmal atrial fibrillation (HCC) Atrial fibrillation Coronary artery disease involving [place] coronary artery of [place] heart without angina pectoris Neuropathy Mononeuritis of unspecified site Essential hypertension Unspecified essential hypertension Fibromyalgia Unspecified myalgia and myositis Cigarette smoker Tobacco use disorder Anxiety Anxiety state, unspecified Pure hypercholesterolemia Ganglion cyst of wrist, left Depressive disorder Depressive disorder, not elsewhere classified Anxiety Anxiety state, unspecified [facility] Diagnosis Chronic obstructive pulmonary disease, [...] Unspecified essential hypertension Coronary artery disease involving [place] coronary artery of [place] heart without angina pectoris Paroxysmal atrial fibrillation [...] (HCC) Myoclonic disorder Coronary artery disease involving [place] coronary artery of [place] heart without angina pectoris Pure hypercholesterolemia Depressive disorder Depressive disorder, not elsewhere classified Anxiety Anxiety state, unspecified Cigarette smoker Tobacco use disorder Screening for diabetes mellitus Influenza vaccine refused Chronic obstructive pulmonary disease, unspecified COPD type (HCC)- Primary Paroxysmal atrial fibrillation (HCC) Atrial fibrillation Coronary artery disease involving [place] coronary artery of [place] heart without angina pectoris Neuropathy Mononeuritis of unspecified site Essential hypertension Unspecified essential hypertension Fibromyalgia Unspecified myalgia and myositis Cigarette smoker Tobacco use disorder Anxiety Anxiety state, unspecified Pure hypercholesterolemia Ganglion cyst of wrist, left Depressive disorder Depressive disorder, not elsewhere classified Neuropathy Mononeuritis of unspecified site [facility] [...] Unspecified essential hypertension Coronary artery disease involving [place] coronary artery of [place] heart without angina pectoris Paroxysmal atrial fibrillation [...] (HCC) Myoclonic disorder Coronary artery disease involving [place] coronary artery of [place] heart without angina pectoris Pure hypercholesterolemia Depressive disorder Depressive disorder, not elsewhere classified Anxiety Anxiety state, unspecified Cigarette smoker Tobacco use disorder Screening for diabetes mellitus Influenza vaccine refused Chronic obstructive pulmonary disease, unspecified COPD type (HCC)- Primary Paroxysmal atrial fibrillation (HCC) Atrial fibrillation Coronary artery disease involving [place] coronary artery of [place] heart without angina pectoris Neuropathy Mononeuritis of unspecified site Essential hypertension Unspecified essential hypertension Fibromyalgia Unspecified myalgia and myositis Cigarette smoker Tobacco use disorder Anxiety Anxiety state, unspecified Pure hypercholesterolemia Ganglion cyst of wrist, left Depressive disorder Depressive disorder, not elsewhere classified Neuropathy Mononeuritis of unspecified site [facility] [...] Unspecified essential hypertension Coronary artery disease involving [place] coronary artery of [place] heart without angina pectoris Paroxysmal atrial fibrillation [...] (HCC) Myoclonic disorder Coronary artery disease involving [place] coronary artery of [place] heart without angina pectoris Pure hypercholesterolemia Depressive disorder Depressive disorder, not elsewhere classified Anxiety Anxiety state, unspecified Cigarette smoker Tobacco use disorder Screening for diabetes mellitus Influenza vaccine refused Chronic obstructive pulmonary disease, unspecified COPD type (HCC)- Primary Paroxysmal atrial fibrillation (HCC) Atrial fibrillation Coronary artery disease involving [place] coronary artery of [place] heart without angina pectoris Neuropathy Mononeuritis of unspecified site Essential hypertension Unspecified essential hypertension Fibromyalgia Unspecified myalgia and myositis Cigarette smoker Tobacco use disorder Anxiety Anxiety state, unspecified Pure hypercholesterolemia Ganglion cyst of wrist, left Depressive disorder Depressive disorder, not elsewhere classified Paronychia of finger of right hand- Primary documented in this [facility]* Diagnosis Chronic obstructive pulmonary disease, [...] Unspecified essential hypertension Coronary artery disease involving [place] coronary artery of [place] heart without angina pectoris Paroxysmal atrial fibrillation [...] (HCC) Myoclonic disorder Coronary artery disease involving [place] coronary artery of [place] heart without angina pectoris Pure hypercholesterolemia Depressive disorder Depressive disorder, not elsewhere classified Anxiety Anxiety state, unspecified Cigarette smoker Tobacco use disorder Screening for diabetes mellitus Influenza vaccine refused Chronic obstructive pulmonary disease, unspecified COPD type (HCC)- Primary Paroxysmal atrial fibrillation (HCC) Atrial fibrillation Coronary artery disease involving [place] coronary artery of [place] heart without angina pectoris Neuropathy Mononeuritis of unspecified site Essential hypertension Unspecified essential hypertension Fibromyalgia Unspecified myalgia and myositis Cigarette smoker Tobacco use disorder Anxiety Anxiety state, unspecified Pure hypercholesterolemia Ganglion cyst of wrist, left Depressive disorder Depressive disorder, not elsewhere classified Anxiety Anxiety state, unspecified [facility]* Attachments The following attachments cannot be sent through Care Everywhere. * Torticollis: Adult (Montserratian) * Cervical: Exercises ([place]serratian) [facility] Hospital Discharge instructions Additional Instructions Continue your metoprolol. Make sure to restart your Eliquis. Contact [facility] regarding pacemaker placement.[facility] Work Phone: Reason for referral (narrative)* Outpatient Procedure (Routine) - Pending Review Specialty Diagnoses / Procedures Referred By Edgar garcia Ref[facility] Diagnoses Persistent atrial fibrillation (HCC) Dyspnea, unspecified type Procedures ECHO ECHO TTHRC R-T 2D W/WOM-MODE COMPL SPEC&COLR D Caryn Wood MD [address] [place] [address] [facility] [address] [place] [address] Referral ID Status Reason Start Date Expiration Date Visits Requested Visits Authorized [id number] Pending Review Auto-Generat ed Referral 05/22/2022 02/19/2023 1 1 [facility] for visit Narrative* Imaging (Routine) - Closed Specialty Diagnoses / Procedures Referred By Edgar garcia Referred To Contact Radiology Diagnoses Cigarette smoker Procedures CT lung screening low dose Adarsh Duggan MD [address] [place] [address], [place] [address] Phone: tel: fax: Referral ID Status Reason Start Date Expiration Date Visits Re quested Visits Authorized [id number] Closed 07/26/2024 07/26/2025 1 1 [facility] Summary Purpose Family History Relationship Condition Age at Onset Recorded Date/T jonh mother Hypertension Unknown Cerebrovascular accident (CVA) Unknown Coronary artery disease Unknown father Malignant neoplasm of colon Unknown Leukemia Unknown Malignant neoplasm of throat Unknown Advance Directives Documents on File Type Date Recorded 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 Advance Directives and Living Will Power of Supervisor [employer] Latest Code Status on File Code Status Date Activated Date Inactivated Comments Full Code 05/08/2018 5:44 PM 05/10/2018 6:00 PM Documents on File Type Date Recorded 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 Advance Directives and Living Will Power of Supervisor [employer] Latest Code Status on File Code Status Date Activated Date Inactivated Comments Full Code 05/08/2018 5:44 PM 05/10/2018 6:00 PM Documents on File Type Date Recorded 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 ACP-Advance Directive ACP-Power of Supervisor [employer] Advance Directive Response Recorded Date/ Time Advance Directives Yes October 03, 2014 12:43pm Living Will No December 18, 2021 11:45am Power of Supervisor [employer] No December 18 11:45am Advance Directive Response Recorded Date/ Time Advance Directives Yes October 03, 2014 12:43pm Living Will No December 18, 2021 5:10pm Power of Supervisor [employer] No December 18 5:10pm Documents on File Type Date Recorded 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 Advance Directive(s) 02/03/2022 7:22 AM Documents on File Type Date Recorded 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 Advance Directive(s) 02/03/2022 7:22 AM Advance Directive Response Recorded Date/ Time Name of Medical Power of Supervisor [employer] daughter February 06, 2022 9:28pm Name of Medical Power of Supervisor [employer] LUIS FRANCO May 25, 2022 11:04am Advance Directives Yes October 03, 2014 12:43pm Living Will Yes May 25, 2022 11:04am Power of Supervisor [employer] Yes May 11:04am Advance Directive Response Recorded Date/ Time Name of Medical Power of Supervisor [employer] daughter February 06, 2022 9:28pm Name of Medical Power of Supervisor [employer] LUIS FRANCO May 25, 2022 11:04am Name of Medical Power of Supervisor [employer] Marbin May 29, 2022 5:00pm Advance Directives Yes October 03, 2014 12:43pm Living Will Yes May 29, 2022 5:00pm Power of Supervisor [employer] Yes May 5:00pm Assessments Diagnosis Chronic fatigue [...] fibrillation (HCC) Procedures Event Monitor Margot Brown, LIBRARY MONITOR - PRODUCT EVANGELIST [address] [facility]. [address] [place] [address] Specialty Diagnoses / Procedures Referred By Contac t Referred To Contact Sports Medicine Diagnoses Neck pain Torticollis [facility] [address] [place] [address] [facility] [address] [place] [address] Referral ID Status Reason Start Date Expiration Date V isits Requested Visits Authorized [id number] Open Specialty Services Required 05/28/2022 05/28/2023 1 1 Scheduling Instructions [facility] [place] [address] [place], [place] [address] Comments The patient can be scheduled with any member of the group, including the provider with the first available appointments. Specialty Diagnoses / Procedures Referred By Contac t Referred To Contact Diagnoses Closed compression fracture of L1 lumbar vertebra, initial encounter ([facility]) Temo Hicks MD [address] [place] [address] Referral ID Status Reason Start Date Expiration Date V isits Requested Visits Authorized [id number] Pending Review 1 1 Specialty Diagnoses / Procedures Referred By Contac t Referred To Contact Radiology Diagnoses Nicotine dependence, cigarettes, uncomplicated Procedures CT lung screening low dose Nelida Santana, DO [address] [place] [address] Referral ID Status Reason Start Date Expiration Date V isits Requested Visits Authorized [id number] Authorized 07/04/2022 12/31/2022 1 1 Discharge Instructions [...] sent through Care Everywhere. * Back Spasm ([place]serratian) * Back: Stretches: Exercises (Montserratian) documented in this encounter Chief Complaint and [...] RVR Elevated troponin Atherosclerotic heart disease of [place] coronary artery without angina pectoris Dizziness Hypotension Chief Complaint AFIB WITH RVR AFIB WITH RVR AFIB WITH RVR DIZZY CHEST PAIN Reason for Visit Atrial fibrillation with RVR Elevated troponin Atherosclerotic heart disease of [place] coronary artery without angina pectoris Dizziness Hypotension Additional Source Comments INFORMATION SOURCE (unrecogn ized section and content) DATE CREATED AUTHOR 06/16/2018 [facility] [facility] DATE CREATED AUTHOR AUTHOR'S ORGANIZ ATION 04/02/2020 [facility] DATE CREATED AUTHOR AUTHOR'S ORGANIZ ATION 02/20/2022 [facility] DATE CREATED AUTHOR AUTHOR'S ORGANIZ ATION [facility]/11/[address] DATE CREATED AUTHOR AUTHOR'S ORGANIZ ATION 07/25/2025 [facility] DATE CREATED AUTHOR AUTHOR'S ORGANIZ ATION 07/27/2025 [facility] Angie's List s [facility] Reason for Visit (unrecogniz ed section and [...] refuseLung cancer screen-agreeRsv vaccine- not doneFlu vaccine- [id number] covid vaccine- not done Reason Onset Date [...] Reason Onset Date Comments Med Refill 07/03/2025 Reason Onset Date Comments Med Refill 07/11/2025 Reason Onset Date Comments Medication Problem 07/14/2025 Ordered Prescriptions (unrec ognized section and content) [...] this informatio n is protected by the Federal Confidentiality of Alcohol and Drug Abuse Patient Records regulations: The Federal rules restrict any use of the information to criminally investigate or prosecute any alcohol or drug abuse patient.[facility] the event this information is protected by the Federal Confidentiality of Alcohol and Drug Abuse Patient Records regulations: The Federal rules restrict any use of the information to criminally investigate or prosecute any alcohol or drug abuse patient.[facility] the event this information is protected by the Federal Confidentiality of Alcohol and Drug Abuse Patient Records regulations: The Federal rules restrict any use of the information to criminally investigate or prosecute any alcohol or drug abuse patient.[facility] the event this information is protected by the Federal Confidentiality of Alcohol and Drug Abuse Patient Records regulations: The Federal rules restrict any use of the information to criminally investigate or prosecute any alcohol or drug abuse patient.[facility] Care Teams (unrecognized sec tion and content) Candy Dipper Hand Relationship Specialty Start Date End Date Olga Lidia Adarsh Mayen [address] [place] [address] PCP - General Family Practice 01/21/22 Jose Dave [address] [address] Nurse Practitioner Cardiology 08/28/21 Juan C Gaytan [address] [id number] Specialty Commercial Technician Cardiology 01/20/22 Candy Dipper Hand Relationship Specialty Start Date End Date Olga LidiaAdarshoy [address] [place], [place] [id number] PCP - General Family Practice 01/21/[address] [place] [address] Nurse Practitioner Cardiology 08/28/21 Juan C Gaytan BrandonEric [address] [place] [address] Specialty Commercial Technician Cardiology 01/20/22 Candy Dipper Hand Relationship Specialty Start Date End Date Adarsh Dugganoy [address] [place] [address] PCP - General Family Practice 01/21/[address] [place] [address] Nurse Practitioner Cardiology 08/28/[address] Juan [address] Gaytan [address] [place] [address] Specialty Commercial Technician Cardiology 01/20/22 Caryn Wood MD [address] [place] [phone] Specialty Commercial Technician Cardiology 01/28/22 Candy Dipper Hand Relationship Specialty Start Date End Date Adarsh Dugganoy [address] [place] [address] PCP - General Family Practice 01/21/[address] [place] [address] Nurse Practitioner Cardiology 08/28/[address] Juan [address] Gaytan [address] [place] [address] Specialty Commercial Technician Cardiology 01/20/22 Caryn Wood MD [address] [place] [address] Specialty Commercial Technician Cardiology 01/28/22 Candy Dipper Hand Relationship Specialty Start Date End Date Adarsh Duggan MD [address] [facility] [place] [address] PCP - General Family Medicine 05/09/21 Candy Dipper Hand Relationship Specialty Start Date End Date Adarsh Duggan MD [address] [facility] [place] [address] PCP - General Family Medicine 05/09/21 Candy Dipper Hand Relationship Specialty Start Date End Date Adarsh Duggan MD [address] [facility] [place] [address] PCP - General 05/09/21 Patt Lerma, clip wrapper 08/12/22 Candy Dipper Hand Relationship Specialty Start Date End Date Adarsh Duggan MD [address] [facility] [place] [address] PCP - General 05/09/21 Patt Lerma, clip wrapper 08/12/22 Candy Dipper Hand Relationship Specialty Start Date End Date Adarsh Duggan MD [address] [facility] [place] [address] PCP - General 05/09/21 Patt Lerma, clip wrapper 08/12/22 Candy Dipper Hand Relationship Specialty Start Date End Date Adarsh Duggan MD [address] [facility] [place] [address] PCP - General 05/09/21 Patt Lerma, clip wrapper 08/12/22 Candy Dipper Hand Relationship Specialty Start Date End Date Adarsh Duggan MD [address] [place] [address] PCP - General 05/09/21 Patt Lerma, clip wrapper 08/12/22 Candy Dipper Hand Relationship Specialty Start Date End Date Adarsh Duggan MD [address] [facility] [place] [address] PCP - General 05/09/21 Patt Lerma, clip wrapper 08/12/22 Candy Dipper Hand Relationship Specialty Start Date End Date Adarsh Duggan MD [address] [facility] [place] [address] PCP - General 05/09/21 Patt Lerma, clip wrapper 08/12/22 Candy Dipper Hand Relationship Specialty Start Date End Date Adarsh Duggan MD [address] [facility] [place] [address] PCP - General 05/09/21 Patt Lerma, clip wrapper 08/12/22 Candy Dipper Hand Relationship Specialty Start Date End Date Adarsh Duggan MD [address] [facility] [place] [address] PCP - General 05/09/21 Patt Lerma, clip wrapper 08/12/22 Candy Dipper Hand Relationship Specialty Start Date End Date Adarsh Duggan MD [address] [facility] [place] [address] PCP - General 05/09/21 Patt Lerma, clip wrapper 08/12/22 Candy Dipper Hand Relationship Specialty Start Date End Date Adarsh Duggan MD [address] [facility] [place] [address] PCP - General 05/09/21 Patt Lerma, clip wrapper 08/12/22 Candy Dipper Hand Relationship Specialty Start Date End Date Adarsh Duggan MD [address] [facility] [place] [address] PCP - General 05/09/21 Patt Lerma, clip wrapper 08/12/22 Candy Dipper Hand Relationship Specialty Start Date End Date Adarsh Duggan MD [address] [facility] [place] [address] PCP - General 05/09/21 Patt Lerma, clip wrapper 08/12/22 Candy Dipper Hand Relationship Specialty Start Date End Date Adarsh Duggan MD [address] [facility] [place] [address] PCP - General 05/09/21 Patt Lerma, clip wrapper 08/12/22 Candy Dipper Hand Relationship Specialty Start Date End Date Adarsh Duggan MD [address] [facility] [place] [address] PCP - General 05/09/21 Patt Lerma, clip wrapper 08/12/22 Candy Dipper Hand Relationship Specialty Start Date End Date Adarsh Duggan MD [address] [facility] [place] [address] PCP - General 05/09/21 Patt Lerma, clip wrapper 08/12/22 Candy Dipper Hand Relationship Specialty Start Date End Date Adarsh Duggan MD [address] [facility] [place] [address] PCP - General 05/09/21 Patt Lerma, clip wrapper 08/12/22 Candy Dipper Hand Relationship Specialty Start Date End Date Adarsh Duggan MD [address] [place] [address] PCP - General 05/09/21 Candy Dipper Hand Relationship Specialty Start Date End Date Adarsh Duggan MD [address] [place] [address] PCP - General 05/09/21 Candy Dipper Hand Relationship Specialty Start Date End Date Adarsh Duggan MD [address] [place] [address] PCP - General 05/09/21 Sumaya Muniz, clip wrapper 07/08/22 08/12/22 Patt Lerma, clip wrapper 08/12/22 Candy Dipper Hand Relationship Specialty Start Date End Date Adarsh Duggan MD [address] [facility] [place] [address] PCP - General 05/09/21 Patt Lerma, clip wrapper 08/12/22 Candy Dipper Hand Relationship Specialty Start Date End Date Adarsh Duggan MD [address] [facility] [place] [address] PCP - General 05/09/21 Patt Lerma, clip wrapper 08/12/22 Candy Dipper Hand Relationship Specialty Start Date End Date Adarsh Duggan MD [address] [place] [address] PCP - General 05/09/21 Sumaya Muniz, clip wrapper 07/08/22 08/12/22 Patt Lerma, clip wrapper 08/12/22 Candy Dipper Hand Relationship Specialty Start Date End Date Adarsh Duggan MD [address] [facility] [place] [address] PCP - General 05/09/21 Patt Lerma, clip wrapper 08/12/22 Candy Dipper Hand Relationship Specialty Start Date End Date Adarsh Duggan MD [address] [facility] [place] [address] PCP - General 05/09/21 Candy Dipper Hand Relationship Specialty Start Date End Date Adarsh Duggan MD [address] [facility] [place] [address] PCP - General 05/09/21 Candy Dipper Hand Relationship Specialty Start Date End Date Adarsh Duggan MD [address] [place] [place] [address] PCP - General 05/09/21 Candy Dipper Hand Relationship Specialty Start Date End Date Adarsh Duggan MD [address] [place] [place] [address] PCP - General 05/09/21 Candy Dipper Hand Relationship Specialty Start Date End Date Adarsh Duggan MD [address] [facility] [place] [address] PCP - General 05/09/21 Candy Dipper Hand Relationship Specialty Start Date End Date Adarsh Duggan MD [address] [place] [place] [address] PCP - General 05/09/21 Candy Dipper Hand Relationship Specialty Start Date End Date Adarsh Duggan MD [address] [place] [place] [address] PCP - General 05/09/21 Candy Dipper Hand Relationship Specialty Start Date End Date Adarsh Duggan MD [address] [place] [address], [place] [address] PCP - General 05/09/21 Scheduled Active and [...] not administer for more than 5 days. 174 (Given - Provid er: Gisel Putnam RN) oxyCODONE-acetaminophen (PERCOCET) 5-325 MG per tablet 1 tablet (COMPLETED) Mg/kg dosing is based on the oxycodone component., 1 tablet, Oral, ONCE, 1 dose, On Thu05/28/22 at 1712, Maximum dose of acetaminophen is 4000 mg from all sources in 24 hours. 1746 (Given - Provid er: Gisel Putnam RN) Scheduled Medication Order 01/22/2023 01/23/2023 01/24/2023 HYDROmorphone [...] Scheduled Medication Order 06/21/2025 06/22/2025 06/23/2025 HYDROcodone-acetaminophen (Arlee) 5-325 MG per tablet 1 tablet (COMPLETED) [...] BE BASED ON THE PRIMARY CLINICAL RECORDS. [employer] provides no warranty or guarantee of the accuracy or completeness of information in this document.
[2025-08-26] MEDS: Metoprolol(XL)Succ 100 MG Tablet PO (14:37)
--- NOTE | 2025-08-26 14:45 | EKG12_ITS ---
Test Reason : AF Blood Pressure : */* mmHG Vent. Rate : 102 BPM Atrial Rate : 102 BPM P-R Int : 140 ms QRS Dur : 86 ms QT Int : 392 ms P-R-T Axes : 59 54 110 degrees QTcB Int : 510 ms Sinus tachycardia with Premature atrial complexes Possible Left atrial enlargement Left ventricular hypertrophy with repolarization abnormality ( [place] ) Prolonged QT Abnormal ECG Confirmed by JUANA GRIMALDO, PRINCESS ([id number]), acquisition editor JULIUS DE LA ROSA ([id number]) on 08/28/2025 6:42:47 AM Referred By: Confirmed By: PRINCESS ARIAS MD
[2025-08-26 14:46] VITALS: BP 181/112; PULSE 84
[2025-08-26 15:00] VITALS: BP 178/108
[2025-08-26 15:33] LABS: Troponin T High Sensitivity 29 ng/L (<=14)
[2025-08-26 15:38] LABS: AST(SGOT) 25 U/L (<=31); Alanine Aminotransfer ALT/SGPT 17 U/L (<=34); Albumin, Serum 4.3 g/dL (3.4-4.8); Alkaline Phosphatase 94 U/L (35-104); Anion Gap 13 (5-15); BUN 17 mg/dL (4-19); BUN/Creat Ratio 16.6 RATIO (10-20); Calcium,Total 9.4 mg/dL (7.6-11.0); Carbon Dioxide 26.2 mmol/L (21.0-32.0); Chloride 98 mmol/L (98-108); Estimated Creatinine Clearance 40.96 ml/min (50-250); Globulin 3.2 g/dL (2.2-4.2); Glucose 111 mg/dL (70-99); Potassium 3.6 mmol/L (3.3-5.1); Pro- Brain NATRIURETIC PEPTIDE 17705 pg/mL (<=900)
--- NOTE | 2025-08-26 16:04 | ED.RN ---
pt wants to leave AMA, does not want to wait for delta troponin. dr su notified
== END 2025-08-26 16:06 | disposition home or self-care (01) ==
PROVIDERS: Emergency Provider Student in an Organized Health Care Education/Training Program; PCP Family Medicine; Visit Provider Student in an Organized Health Care Education/Training Program
DX: R00.2 Palpitations (principal); J44.9 Chronic obstructive pulmonary disease, unspecified; I48.0 Paroxysmal atrial fibrillation; I10 Essential (primary) hypertension; E78.5 Hyperlipidemia, unspecified; I25.10 Atherosclerotic heart disease of native coronary artery without angina pectoris; M54.9 Dorsalgia, unspecified; I25.2 Old myocardial infarction; F32.A Depression, unspecified; Z79.51 Long term (current) use of inhaled steroids; Z79.899 Other long term (current) drug therapy; Z95.5 Presence of coronary angioplasty implant and graft; Z90.710 Acquired absence of both cervix and uterus; F17.200 Nicotine dependence, unspecified, uncomplicated; Z53.29 Procedure and treatment not carried out because of patient's decision for other reasons; R53.83 Other fatigue; R79.89 Other specified abnormal findings of blood chemistry; Z91.148 Patient's other noncompliance with medication regimen for other reason
CPT/HCPCS: 71275; 74174; 80053; 81001; 83880; 84484; 85025; 87631; 93005; 99283; Q9967; A4216